=== PATIENT | male | born 1950 | race African-American/Black ===

== ENCOUNTER → 2023-04-02 10:22 | Outpatient (CLI) | payer MEDICARE, BC, OTHER, SELFPAY ==
--- NOTE | ~2023-04-02 | XR_ITS ---
EXAMINATION: XR hand RT 2V, XR wrist LT 2V, XR wrist RT 2V, XR hand LT 2V DATE: 04/02/2023 11:18 INDICATION: Unspecified joint pain at the bilateral hands and wrists TECHNIQUE: 1. Posteroanterior and lateral views of the affected wrist were obtained. 2. Dorsal palmar, oblique and lateral views of the affected hand were obtained. 3. Posteroanterior and lateral views of the affected wrist were obtained. 4. Dorsal palmar, oblique and lateral views of the affected hand were obtained. COMPARISON: None. FINDINGS: The left fifth digit is small with absent distal phalanx, very short middle phalanx and with decrease in cross-sectional diameter of the mid to distal aspect of the proximal phalanx. The latter finding suggests that this is likely developmental but would correlate with clinical history. There are swan- neck deformities at the left second and third digits. Otherwise normal alignment at the bilateral bryan ds and wrists. Suggestion of an old mild fracture deformity at the neck of the left third middle phal anx. No acute fracture identified. Polyarticular osteoarthritis, moderate severity at the left third distal interphalangeal joint at the bilateral distal radioulnar joints. Mild osteoarthritis at the ma jority the remaining joints at the bilateral hands and wrists. No erosions to suggest inflammatory ar thritis. There are prominent soft tissue swelling about the left third and fourth proximal interphala ngeal joints. IMPRESSION: 1. Small left fifth digit with osseous findings as detailed above suggesting this may be developmenta l. Correlate with clinical history. 2. Old healed fracture at the neck of the left third distal phalanx. No acute osseous abnormality. 3. Polyarticular osteoarthritis at the bilateral hands and wrists, moderate at the left third distal interphalangeal joint and otherwise mild. Reviewed, dictated and finalized at location A. EM MAKER IMPRESSION: 1. Small left fifth digit with osseous findings as detailed above suggesting th is may be developmental. Correlate with clinical history. 2. Old healed fracture at the neck of the left third distal phalanx. No acute o sseous abnormality. 3. Polyarticular osteoarthritis at the bilateral hands and wrists, moderate at the left third distal interphalangeal joint and otherwise mild. IMPRESSION: 1. Small left fifth digit with osseous findings as detailed above suggesting th is may be developmental. Correlate with clinical history. 2. Old healed fracture at the neck of the left third distal phalanx. No acute o sseous abnormality. 3. Polyarticular osteoarthritis at the bilateral hands and wrists, moderate at the left third distal interphalangeal joint and otherwise mild. IMPRESSION: 1. Small left fifth digit with osseous findings as detailed above suggesting th is may be developmental. Correlate with clinical history. 2. Old healed fracture at the neck of the left third distal phalanx. No acute o sseous abnormality. 3. Polyarticular osteoarthritis at the bilateral hands and wrists, moderate at the left third distal interphalangeal joint and otherwise mild.
--- NOTE | ~2023-04-02 | XR_ITS ---
EXAMINATION: XR ankle LT 2V, XR ankle RT 2V, XR foot RT 2V, XR foot LT 2V DATE: 04/02/2023 11:19 INDICATION: Unspecified joint pain at the bilateral feet and ankles TECHNIQUE: 1. Anteroposterior and lateral view of the left ankle were obtained. 2. Dorsoplantar and lateral views of the left foot were obtained. 3. Anteroposterior and lateral view of the right ankle were obtained. 4. Dorsoplantar and lateral views of the right foot were obtained. COMPARISON: None. FINDINGS: Bilateral hallux valgus,, 25 degrees on the right and 55 degrees on the left. Otherwise normal alignm ent in the bilateral feet and ankles. No fracture. Mild polyarticular osteoarthritis at multiple join ts in the bilateral feet. Bilateral ankle joint spaces are relatively preserved. No erosions to sugge st inflammatory arthritis. Bilateral moderate to large Achilles calcaneal enthesophytes and small andrew ateral plantar calcaneal enthesophytes. Additional small enthesophytes at the bilateral bases of the fifth metatarsals end at the medial and lateral malleoli. No ankle joint effusion. Vascular calcifica tions at the bilateral ankles and distal lower legs. Soft tissues are otherwise unremarkable. IMPRESSION: 1. Bilateral hallux valgus, left greater than right. 2. Degenerative skeletal changes including mild polyarticular osteoarthritis at the bilateral feet an d relatively symmetric scattered enthesophytes at the bilateral ankles, mid and hindfeet. Reviewed, dictated and finalized at location A. S TENDER IMPRESSION: 1. Bilateral hallux valgus, left greater than right. 2. Degenerative skeletal changes including mild polyarticular osteoarthritis at the bilateral feet and relatively symmetric scattered enthesophytes at the andrew ateral ankles, mid and hindfeet. IMPRESSION: 1. Bilateral hallux valgus, left greater than right. 2. Degenerative skeletal changes including mild polyarticular osteoarthritis at the bilateral feet and relatively symmetric scattered enthesophytes at the andrew ateral ankles, mid and hindfeet. IMPRESSION: 1. Bilateral hallux valgus, left greater than right. 2. Degenerative skeletal changes including mild polyarticular osteoarthritis at the bilateral feet and relatively symmetric scattered enthesophytes at the andrew ateral ankles, mid and hindfeet.
== END ==
DX: R53.81 Other malaise (principal); M19.041 Primary osteoarthritis, right hand; M19.042 Primary osteoarthritis, left hand; M19.031 Primary osteoarthritis, right wrist; M19.032 Primary osteoarthritis, left wrist; M19.071 Primary osteoarthritis, right ankle and foot; M19.072 Primary osteoarthritis, left ankle and foot
CPT/HCPCS: 73100; 73120; 73600; 73620

== ENCOUNTER 2023-10-31 11:09 | Emergency (ER) | payer MEDICARE, BC, OTHER, SELFPAY ==
--- NOTE | ~2023-10-31 | CT_ITS ---
EXAMINATION: CT lumbar spine w con DATE: 10/31/2023 13:44 INDICATION: Low back pain radiating to right thigh. TECHNIQUE: Computed tomography (CT) of the lumbar spine was performed with 100 mL Omnipaque 350 intra venous contrast. Automated exposure control and iterative reconstruction technique were employed. The dose-length product was 604.77 mGy-cm. COMPARISON: None FINDINGS: There is 8 degrees levocurvature of lumbar spine. Vertebral body heights are normal. There is mildly decreased disc height at L2-L3, L3-L4, and L4-L5 and moderately decreased disc height at L5 -S1. There are bridging endplate osteophytes from at least T11 to L2, consistent with diffuse idiopat hic skeletal hyperostosis (DISH). The following disc levels are specifically discussed: L1-L2: The disc does not extend beyond the endplate margin. There is mild right and severe left facet joint hypertrophy. There is mild bilateral neural foraminal stenosis. There is no central canal sten osis. L2-L3: The disc is bulging. There is severe bilateral facet joint osteoarthritis. There is mild bilat eral neural foraminal stenosis. There is no central canal stenosis. L3-L4: The disc is bulging. There is severe bilateral facet joint osteoarthritis. There is mild bilat eral neural foraminal stenosis. There is mild central canal stenosis. L4-L5: The disc is bulging. There is severe bilateral facet joint osteoarthritis. There is mild bilat eral neural foraminal stenosis. There is mild central canal stenosis. L5-S1: The disc is bulging. There is severe bilateral facet joint osteoarthritis. There is moderate b ilateral neural foraminal stenosis. There is mild central canal stenosis. IMPRESSION: 1. Moderate lower lumbar spondylosis. 2. DISH. Reviewed, dictated and finalized at location A.
[2023-10-31 11:13] VITALS: BP 151/90; PULSE 96; RESP 15; TEMP 36.6; O2SAT 98
[2023-10-31] MEDS: diazePAM (*CRX) 5 MG TABLET PO (12:22)
[2023-10-31] MEDS: fentaNYL CITRATE INJ (*CRX) 100 MCG/2 ML VIAL 50 MCG IM (12:23)
--- NOTE | 2023-10-31 13:06 | ED.BACK ---
HPI - Back Pain/Injury General Chief Complaint: Back Pain/Injury <Adilene Washburn III, DO - Last Filed: 11/06/23 07:40> Stated Complaint: back pain <Adilene Washburn III, DO - Last Filed: 11/06/23 07:40> Time Seen by Provider: 10/31/23 12:03 <Adilene Washburn III, DO - Last Filed: 11/06/23 07:40> History of Present Illness HPI Narrative: Pt presents with low back pain without injury for 3 weeks with radiation to top of right thigh. Pt says it is really hard to lie down flat at night. Pt denies problems with bladder or bowels or any weakness. Pt denies any recent procedures or any prior surgical hx. <Adilene Washburn III, DO - Last Filed: 11/06/23 07:40> Related Data Home Medications: Home Medications Medication Instructions Recorded Confirmed amlodipine 5 mg tablet 5 mg PO DAILY 01/01/23 01/01/23 aspirin 81 mg chewable tablet 81 mg PO Q48H 01/01/23 01/01/23 (Aspirin Childrens) atorvastatin 80 mg tablet 80 mg PO HS 01/01/23 01/01/23 bethanechol chloride 10 mg tablet 10 mg PO TID 01/01/23 01/01/23 brimonidine 0.2 % eye drops 1 drp EACH EYE BID 01/01/23 01/01/23 cholecalciferol (vitamin D3) 25 50 mcg PO DAILY 01/01/23 01/01/23 mcg (1,000 unit) tablet clopidogrel 75 mg tablet (Plavix) 75 mg PO DAILY 01/01/23 01/01/23 finasteride 5 mg tablet 5 mg PO DAILY 01/01/23 01/01/23 folic acid-vit B6-vit B12 2.2 1 tablet PO DAILY 01/01/23 01/01/23 mg-25 mg-1 mg tablet (Virt-Neeta) hydrocodone 10 mg-acetaminophen 1 tablet PO Q48H PRN Pain (Scale 01/01/23 01/01/23 325 mg tablet Score 7-10) hydroxychloroquine 200 mg tablet 200 mg PO BID 01/01/23 01/01/23 insulin aspart U-100 100 unit/mL 2 unit subcut QAM 01/01/23 01/01/23 subcutaneous solution levetiracetam 500 mg tablet 1,000 mg PO BID 01/01/23 01/01/23 lipase 10,500-protease 3 cap PO TID 01/01/23 01/01/23 35,500-amylase 61,500 unit capsule,delayed rel (Pancreaze) magnesium oxide 400 mg PO DAILY 01/01/23 01/01/23 metformin 1,000 mg tablet 1,000 mg PO BIDWMEAL 01/01/23 01/01/23 pantoprazole 40 mg tablet,delayed 40 mg PO QAM 01/01/23 01/01/23 release pregabalin 100 mg capsule 100 mg PO QAM 01/01/23 01/01/23 pregabalin 100 mg capsule 200 mg PO HS 01/01/23 01/01/23 pyridoxine (vitamin B6) 50 mg 50 mg PO DAILY 01/01/23 01/01/23 tablet sitagliptin phosphate 100 mg tablet 100 mg PO DAILY 01/01/23 01/01/23 sotalol 80 mg tablet 120 mg PO BID 01/01/23 01/01/23 tamsulosin 0.4 mg capsule 0.4 mg PO BID 01/01/23 01/01/23 <Adilene Washburn III, DO - Last Filed: 11/06/23 07:40> Allergies/Adverse Reactions: Allergies Allergy/AdvReac Type Severity Reaction Status Date / Time peanut Allergy Intermediate Swelling Verified 10/31/23 11:35 aspirin Allergy Mild aggravates Verified 10/31/23 11:35 stomach banana Allergy Unknown Itching Verified 10/31/23 11:35 latex Allergy Unknown Itching Verified 10/31/23 11:35 Penicillins Allergy Unknown Swelling Verified 10/31/23 11:35 Sulfa (Sulfonamide Allergy Unknown Swelling Verified 10/31/23 11:35 Antibiotics) celecoxib [From Celebrex] Allergy Swelling Verified 10/31/23 11:35 infliximab [From Remicade] Allergy Unknown Verified 10/31/23 11:35 meloxicam [From Mobic] Allergy Itching Verified 10/31/23 11:35 metoclopramide Allergy Unknown Verified 10/31/23 11:35 lisinopril AdvReac Swelling Verified 10/31/23 11:35 <Adilene Washburn III, DO - Last Filed: 11/06/23 07:40> Review of Systems Review of Systems: All systems reviewed & are unremarkable except as noted in HPI and below <Adilene Washburn III, DO - Last Filed: 11/06/23 07:40> [facility] Family History Family History: Family History Father Lung disease Mother Heart attack <Adilene Washburn III, DO - Last Filed: 11/06/23 07:40> Social History Social History: Social History Smoking status: Never smoker Alcoh
[2023-10-31 13:11] LABS: Basophils Percent Auto 0.8 % (0.2-1.2); Eosinophils Absolute Auto 0.1 K/mm3 (0-0.3); Eosinophils Percent Auto 2.8 % (0-4.4); Hematocrit 35.8 % (42.0-52.0); Hemoglobin 11.8 g/dL (14.0-18.0); Immature Granulocyte Absolute 0.01 K/mm3 (0.00-0.031); Immature Granulocyte Percent A 0.3 % (0-0.5); Lymphocytes Absolute Auto 1.46 K/mm3 (0.9-3.2); Lymphocytes Percent Auto 37.2 % (18.3-44.2); Mean Corpuscular Hemoglobin 26.8 pg (26-34); Mean Corpuscular Volume 81.4 fl (80-100); Mean Platelet Volume 8.9 fl (7.4-10.4); Monocytes Absolute Auto 0.3 K/mm3 (0.1-0.6); Monocytes Percent Auto 7.1 % (2.6-8.5); Neutrophils Percent Auto 51.8 % (45.5-73.1); Platelet Count Result 301 k/mm3 (150-375); Red Cell Distribution Width 16.4 % (11.5-14.5); White Blood Count 3.9 K/mm3 (4.5-10.0)
[2023-10-31 13:24] LABS: Alanine Aminotransferase 15 U/L (6-50); Albumin Level 4.4 g/dL (3.5-5.1); Alkaline Phosphatase 63 U/L (38-126); Anion Gap 9 mmol/L (4-12); Aspartate Amino Transferase 35 U/L (17-59); Bilirubin,Total 1.1 mg/dL (0.2-1.3); Blood Urea Nitrogen 14 mg/dL (9-20); Calcium 9.8 mg/dL (8.4-10.2); Carbon Dioxide 24 mmol/L (22-30); Chloride 108 mmol/L (98-107); Estimated CRCL calculation 68 ml/min; Estimated Glomerular Filt Rate > 60; Glucose 136 mg/dL (65-110); Potassium 3.7 mmol/L (3.4-5.0); Sodium 141 mmol/L (137-145)
[2023-10-31 15:17] LABS: Appearance Urine Clear (Clear); Bacteria Urine None Seen /hpf; Bilirubin Urine Negative (Negative); Blood Urine Negative (Negative); Color Urine Yellow (Yellow); Glucose Urine UA Negative (Negative); Ketones Urine Negative (Negative); Leukocyte Esterase Ur Negative LEU/UL (Negative); Need Manual Microscopic Reviewed; Nitrate Urine Negative (Negative); Non Pathogenic Casts 0-2; Protein Urine Trace mg/dL (Negative); RBC Urine 0-2 /hpf (0-2); Squamous Epithelial Cell Urine Occasional /hpf (Few); Urobilinogen Urine 0.2 mg/dL (<2.0); pH Urine 5.5 (5.0-9.0)
[2023-10-31 15:33] LABS: Add Urine Microscopic? YES; Specific Grav Ur 1.015 (1.001-1.035)
[2023-10-31 15:43] VITALS: BP 142/86; PULSE 88; RESP 14; O2SAT 97
== END 2023-10-31 15:46 | disposition home or self-care (01) ==
PROVIDERS: Emergency Medicine; Emergency Provider Emergency Medicine
DX: M54.50 Low back pain, unspecified (principal); M79.651 Pain in right thigh
CPT/HCPCS: 36415; 72132; 80053; 81001; 85025; 87077; 87086; 87088; 87181; 96372; 99284; A9270; J3010; Q9967

== ENCOUNTER 2024-05-01 10:39 | Emergency (ER) | payer MEDICARE, BC, OTHER, SELFPAY ==
--- NOTE | ~2024-05-01 | XR_ITS ---
XR chest 2V 05/01/2024 11:12 Indication: Weakness Procedure: Weakness. Comparison: 05/04/2014 Findings: No focal air space disease, pulmonary edema, pleural effusion or suspected pneumothorax. He art size normal. 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 Impression: 1: No acute cardiopulmonary disease. Reviewed, dictated and finalized at location B. OFF MILL TENDER Impression: 1: No acute cardiopulmonary disease.
--- NOTE | 2024-05-01 10:42 | ECG_ITS ---
Test Date: 2024-05-01 10:44:43 Measurements Intervals [place] Rate: 74 P: 71 TX: 160 QRS: 68 QRSD: 80 T: 68 QT: 367 QTc: 408 Interpretive Statements SINUS RHYTHM No previous ECG available for comparison Electronically Signed On 05-01-2024 12:23:36 CONTRACT ADMINISTRATOR by Colby Coats M.D.
[2024-05-01 10:49] VITALS: BP 163/91; PULSE 74; RESP 18; TEMP 36.6; O2SAT 100
[2024-05-01 11:03] LABS: Basophils Percent Auto 0.2 % (0.2-1.2); Eosinophils Absolute Auto 0.1 K/mm3 (0-0.3); Eosinophils Percent Auto 2.6 % (0-4.4); Hematocrit 40.9 % (42.0-52.0); Hemoglobin 13.6 g/dL (14.0-18.0); Immature Granulocyte Absolute 0.01 K/mm3 (0.00-0.031); Immature Granulocyte Percent A 0.2 % (0-0.5); Lymphocytes Absolute Auto 1.01 K/mm3 (0.9-3.2); Lymphocytes Percent Auto 23.7 % (18.3-44.2); Mean Corpuscular HGB Conc 33.3 g/dl (32-36); Mean Corpuscular Volume 84.3 fl (80-100); Mean Platelet Volume 8.6 fl (7.4-10.4); Monocytes Absolute Auto 0.4 K/mm3 (0.1-0.6); Monocytes Percent Auto 10.3 % (2.6-8.5); Neutrophils Absolute Auto 2.7 K/mm3 (1.3-6.7); Platelet Count Result 230 k/mm3 (150-375); Red Blood Count 4.85 M/mm3 (4.6-6.20); Red Cell Distribution Width 15.6 % (11.5-14.5); White Blood Count 4.3 K/mm3 (4.5-10.0)
[2024-05-01 11:13] LABS: Alanine Aminotransferase 23 U/L (6-50); Albumin Level 4.2 g/dL (3.5-5.1); Alkaline Phosphatase 77 U/L (38-126); Anion Gap 6 mmol/L (4-12); Aspartate Amino Transferase 34 U/L (17-59); Blood Urea Nitrogen 8 mg/dL (9-20); Calcium 9.5 mg/dL (8.4-10.2); Carbon Dioxide 29 mmol/L (22-30); Chloride 105 mmol/L (98-107); Estimated CRCL calculation 65 ml/min; Estimated Glomerular Filt Rate > 60; Glucose 94 mg/dL (65-110); Potassium 3.7 mmol/L (3.4-5.0); Sodium 140 mmol/L (137-145)
[2024-05-01 11:15] VITALS: BP 168/90; PULSE 70; RESP 20; O2SAT 99
[2024-05-01 12:00] VITALS: BP 175/90; PULSE 73; RESP 16; O2SAT 99
[2024-05-01 12:09] LABS: Add Urine Microscopic? YES; Ammonium Biurate Crystals Ur Present /hpf; Appearance Urine Clear (Clear); Bacteria Urine None Seen /hpf; Bilirubin Urine Negative (Negative); Blood Urine Non-Hemolyzed Trace (Negative); Color Urine Yellow (Yellow); Glucose Urine UA Negative (Negative); Ketones Urine Trace mg/dL (Negative); Leukocyte Esterase Ur Negative LEU/UL (Negative); Need Manual Microscopic Reviewed; Nitrate Urine Positive (Negative); Non Pathogenic Casts 0-2; Protein Urine Trace mg/dL (Negative); Specific Grav Ur 1.019 (1.001-1.035); Squamous Epithelial Cell Urine None Seen /hpf (Few); Urobilinogen Urine 0.2 mg/dL (<2.0); WBC Urine 0-5 /hpf (0-3); pH Urine 6.5 (5.0-9.0)
--- NOTE | 2024-05-01 12:37 | ED.GENADULT ---
HPI - General Adult General Chief complaint: Weakness Stated complaint: weakness Time Seen by Provider: 05/01/24 10:49 History of Present Illness HPI narrative: Patient is 73-year-old male who presents ER with increased weakness and fatigue. Reports he has a cold. He has been having some cough but no shortness of breath. Mild sinus congestion. No chest pain or chest pressure. No fevers or chills or sweats. Reports has similar condition. Related Data Home Medications ?Medication ?Instructions ?Recorded ?Confirmed ?Last Taken ?Type amlodipine 5 mg tablet 5 mg PO DAILY 01/01/23 01/01/23 Unknown History aspirin 81 mg chewable tablet 81 mg PO Q48H 01/01/23 01/01/23 Unknown History (Aspirin Childrens) atorvastatin 80 mg tablet 80 mg PO HS 01/01/23 01/01/23 Unknown History bethanechol chloride 10 mg tablet 10 mg PO TID 01/01/23 01/01/23 Unknown History brimonidine 0.2 % eye drops 1 drp EACH EYE BID 01/01/23 01/01/23 Unknown History cholecalciferol (vitamin D3) 25 50 mcg PO DAILY 01/01/23 01/01/23 Unknown History mcg (1,000 unit) tablet clopidogrel 75 mg tablet (Plavix) 75 mg PO DAILY 01/01/23 01/01/23 Unknown History finasteride 5 mg tablet 5 mg PO DAILY 01/01/23 01/01/23 Unknown History folic acid-vit B6-vit B12 2.2 1 tablet PO DAILY 01/01/23 01/01/23 Unknown History mg-25 mg-1 mg tablet (Virt-Neeta) hydrocodone 10 mg-acetaminophen 1 tablet PO Q48H PRN Pain (Scale 01/01/23 01/01/23 Unknown History 325 mg tablet Score 7-10) hydroxychloroquine 200 mg tablet 200 mg PO BID 01/01/23 01/01/23 Unknown History insulin aspart U-100 100 unit/mL 2 unit subcut QAM 01/01/23 01/01/23 Unknown History subcutaneous solution levetiracetam 500 mg tablet 1,000 mg PO BID 01/01/23 01/01/23 Unknown History lipase 10,500-protease 3 cap PO TID 01/01/23 01/01/23 Unknown History 35,500-amylase 61,500 unit capsule,delayed rel (Pancreaze) magnesium oxide 400 mg PO DAILY 01/01/23 01/01/23 Unknown History metformin 1,000 mg tablet 1,000 mg PO BIDWMEAL 01/01/23 01/01/23 Unknown History pantoprazole 40 mg tablet,delayed 40 mg PO QAM 01/01/23 01/01/23 Unknown History release pregabalin 100 mg capsule 100 mg PO QAM 01/01/23 01/01/23 Unknown History pregabalin 100 mg capsule 200 mg PO HS 01/01/23 01/01/23 Unknown History pyridoxine (vitamin B6) 50 mg 50 mg PO DAILY 01/01/23 01/01/23 Unknown History tablet sitagliptin phosphate 100 mg tablet 100 mg PO DAILY 01/01/23 01/01/23 Unknown History sotalol 80 mg tablet 120 mg PO BID 01/01/23 01/01/23 Unknown History tamsulosin 0.4 mg capsule 0.4 mg PO BID 01/01/23 01/01/23 Unknown History Allergies Allergy/AdvReac Type Severity Reaction Status Date / Time peanut Allergy Intermediate Swelling Verified 10/31/23 11:35 aspirin Allergy Mild aggravates Verified 10/31/23 11:35 stomach banana Allergy Unknown Itching Verified 10/31/23 11:35 latex Allergy Unknown Itching Verified 10/31/23 11:35 Penicillins Allergy Unknown Swelling Verified 10/31/23 11:35 Sulfa (Sulfonamide Allergy Unknown Swelling Verified 10/31/23 11:35 Antibiotics) celecoxib (From Celebrex) Allergy Swelling Verified 10/31/23 11:35 infliximab (From Remicade) Allergy Unknown Verified 10/31/23 11:35 meloxicam (From Mobic) Allergy Itching Verified 10/31/23 11:35 metoclopramide Allergy Unknown Verified 10/31/23 11:35 lisinopril AdvReac Swelling Verified 10/31/23 11:35 Review of Systems Review of Systems: All systems reviewed & are unremarkable except as noted in HPI and below Constitutional: Constitutional: Reports no additional constitutional complaints ENT: Reports system reviewed and no additional complaints, except as documented Cardiovascular: Cardiovascular: Reports no additional cardiovascular complaints Respiratory: Respiratory: Reports no additional respiratory complaints Musculoskeletal: Musculoskeletal: Reports no additional musculoskeletal complaints [facility] Past Medical History Medical History (Updated 05/01/24 @ 14:18 by Wyatt Roberson MD) Hypertension Hyperlipidemia Diabetes mellitus BPH (benign prostatic hyperplasia) Atrial fibrillation Family History Family History Father Lung disease Mother Heart attack Social History Social History Smoking status: Never smoker Alcohol intake: never Substance use: never Substance use type: does not use Spiritual care concerns: No Exam Narrative: GENERAL: Well-appearing, well-nourished, and in no acute distress. HEAD: Normocephalic, atraumatic. ENT: Mucous membranes moist. NECK: Supple. CHEST: Clear to auscultation. No respiratory distress. HEART: Regular rate and rhythm. Normal peripheral pulses. ABDOMEN: Soft, nontender, nondistended. EXTREMITIES: Normal range of motion. No edema. SKIN: Warm, dry, no rash. NEURO: Alert and oriented x3. PSYCH: Normal mood and affect. Course Course Emergency Course: Patient informed of results. Ready for dc. Vital Signs Vital signs: Vital Signs Temperature 98 F 05/01/24 10:49 Pulse Rate 74 05/01/24 10:49 Respiratory Rate 18 05/01/24 10:49 Blood Pressure 163/91 H 05/01/24 10:49 Pulse Oximetry 100 05/01/24 10:49 Temperature 98 F 05/01/24 10:49 Pulse Rate 69 05/01/24 13:00 Respiratory Rate 17 05/01/24 13:00 Blood Pressure 168/93 H 05/01/24 13:00 Pulse Oximetry 98 05/01/24 13:00 Medical Decision Making Vital Signs Vital Signs: Vital Signs Temperature 98 F 05/01/24 10:49 Pulse Rate 74 05/01/24 10:49 Respiratory Rate 18 05/01/24 10:49 Blood Pressure 163/91 H 05/01/24 10:49 Pulse Oximetry 100 05/01/24 10:49 Temperature 98 F 05/01/24 10:49 Pulse Rate 69 05/01/24 13:00 Respiratory Rate 17 05/01/24 13:00 Blood Pressure 168/93 H 05/01/24 13:00 Pulse Oximetry 98 05/01/24 13:00 Lab Data 05/01/24 10:51 05/01/24 10:51 Labs: Lab Results 05/01/24 05/01/24 05/01/24 Range/Units 10:51 11:35 12:01 WBC 4.3 L (4.5-10.0) K/mm3 RBC 4.85 (4.6-6.20) M/mm3 Hgb 13.6 L (14.0-18.0) g/dL Hct 40.9 L (42.0-52.0) % MCV 84.3 (80-100) fl MCH 28.0 (26-34) pg MCHC 33.3 (32-36) g/dl RDW 15.6 H (11.5-14.5) % Plt Count 230 (150-375) k/mm3 MPV 8.6 (7.4-10.4) fl Immature Gran % (Auto) 0.2 (0-0.5) % Neut % (Auto) 63.0 (45.5-73.1) % Lymph % (Auto) 23.7 (18.3-44.2) % [place] % (Auto) 10.3 H (2.6-8.5) % Eos % (Auto) 2.6 (0-4.4) % Baso % (Auto) 0.2 (0.2-1.2) % Lymph # (Auto) 1.01 (0.9-3.2) K/mm3 [place] # (Auto) 0.4 (0.1-0.6) K/mm3 Eos # (Auto) 0.1 (0-0.3) K/mm3 Baso # (Auto) 0.0 (0.0-0.1) K/mm3 Abs Immat Gran (auto) 0.01 (0.00-0.031) K/mm3 Absolute Neuts (auto) 2.7 (1.3-6.7) K/mm3 Absolute Nucleated RBC 0.000 (0.0-0.012) K/mm3 Nucleated RBC % 0.0 (0.0-0.2) % Sodium 140 (137-145) mmol/L Potassium 3.7 (3.4-5.0) mmol/L Chloride 105 (98-107) mmol/L Carbon Dioxide 29 (22-30) mmol/L Anion Gap 6 (4-12) mmol/L BUN 8 L D (9-20) mg/dL Creatinine 1.00 (0.7-1.3) mg/dL Estim Creat Clear Calc 65 ml/min Estimated GFR > 60 (59 - ) Glucose 94 (65-110) mg/dL Calcium 9.5 (8.4-10.2) mg/dL Total Bilirubin 1.0 (0.2-1.3) mg/dL AST 34 (17-59) U/L ALT 23 (6-50) U/L Alkaline Phosphatase 77 (38-126) U/L Total Protein 8.0 (6.3-8.2) g/dL Albumin 4.2 (3.5-5.1) g/dL Urine Color Yellow (Yellow) Urine Appearance Clear (Clear) Urine pH 6.5 (5.0-9.0) Ur Specific [place] 1.019 (1.001-1.035) Urine Protein Trace (Negative) mg/dL Urine Glucose (UA) Negative (Negative) mg/dL Urine Ketones Trace H (Negative) mg/dL Ur Blood (Man) Non-hemolyzed trace (Negative) Urine Nitrate Positive H (Negative) Urine Bilirubin Negative (Negative) Urine Urobilinogen 0.2 (<2.0) mg/dL Add Ur Microanalysis Reviewed Leukocyte Esterase Rfl Negative (Negative) HINA/UL Urine RBC 3-5 H (0-2) /hpf Urine WBC 0-5 (0-3) /hpf Ur Squamous Epith Cells None seen (Few) /hpf [place] Biurate Crystals Present H (None) /hpf Urine Bacteria None seen /hpf Urine Casts 0-2 Influenza A (RT-PCR) Negative (Negative) Influenza B (RT-PCR) Negative (Negative) RSV (RT-PCR) Positive A (Negative) SARS-CoV-2 RNA (RT-PCR) Negative (Negative) Discharge Plan Discharge Clinical Impression: Respiratory syncytial virus (RSV) Patient Disposition: Home, Self-Care Condition: Stable Instructions: RSV (Respiratory Syncytial Virus) Infection (ED) Additional Instructions: As discussed you have a viral illness. Unfortunately there are no specific medications we can give you to make the illness end faster. Antibiotics do not work for viral illnesses. However, you can take Acetaminophen or Ibuprofen to help with fevers and pain. Stay well hydrated and rested. Return to the emergency department if your fevers and chills continue to worse after 5 days, if you develop worsening cough with thick sputum, or are unable to stay hydrated. Contact your primary care provider in the next few days for a re-evaluation and to make sure your symptoms are improving. Patient Language: Congolese Prescriptions: No Action methylprednisolone [Medrol (Ricardo)] 4 mg tablets,dose pack See Rx Instructions PO .COMPLEX Qty: 21 0RF Rx Instructions: orally per package directions atorvastatin 80 mg Tablet 80 mg PO HS bethanechol chloride 10 mg Tablet 10 mg PO TID levetiracetam 500 mg Tablet 1,000 mg PO BID sotalol 80 mg Tablet 120 mg PO BID clopidogrel [Plavix] 75 mg Tablet 75 mg PO DAILY amlodipine 5 mg Tablet 5 mg PO DAILY hydrocodone-acetaminophen 10-325 mg Tablet 1 tablet PO Q48H PRN (Reason: Pain (Scale Score 7-10)) tamsulosin 0.4 mg Capsule 0.4 mg PO BID insulin aspart U-100 100 unit/mL Solution 2 unit SUBCUT QAM pantoprazole 40 mg Tablet,Delayed Release (Dr/Ec) 40 mg PO QAM metformin 1,000 mg Tablet 1,000 mg PO BIDWMEAL brimonidine 0.2 % Drops 1 drp EACH EYE BID pyridoxine (vitamin B6) 50 mg Tablet 50 mg PO DAILY aspirin [Aspirin Childrens] 81 mg Tablet,Chewable 81 mg PO Q48H hydroxychloroquine 200 mg Tablet 200 mg PO BID finasteride 5 mg Tablet 5 mg PO DAILY pregabalin 100 mg Capsule 100 mg PO QAM pregabalin 100 mg Capsule 200 mg PO HS Virt-Neeta 2.2-25-1 mg Tablet 1 tablet PO DAILY cholecalciferol (vitamin D3) 25 mcg (1,000 unit) Tablet 50 mcg PO DAILY sitagliptin phosphate 100 mg Tablet 100 mg PO DAILY Pancreaze 10,500-35,500- 61,500 unit Capsule,Delayed Release(Dr/Ec) 3 cap PO TID Rx Instructions: administer with meals and/or snacks- to start on 01/02/2023 magnesium oxide 400 mg magnesium Tablet 400 mg PO DAILY sennosides-docusate sodium [Senokot-S] 8.6-50 mg Tablet 1 tab PO HS Qty: 14 0RF cyanocobalamin (vitamin B-12) 1,000 mcg/mL Solution 1,000 mcg IM MONTHLY Qty: 0 0RF Follow-up/Referrals: UNKNOWN,DOCTOR [Primary Care Provider] - 1 Week
[2024-05-01 13:00] VITALS: BP 168/93; PULSE 69; RESP 17; O2SAT 98
[2024-05-01 14:02] LABS: Influenza A QL RT-PCR Negative (Negative); Influenza B QL RT-PCR Negative (Negative); RSV RNA, RT-PCR Positive (Negative); SARS-CoV-2 RNA PCR Negative (Negative)
--- NOTE | 2024-05-01 14:30 | PC.NURSE ---
This RN called pt. caregiver letting her know the pt. is d/c. Caregiver to pickup pt. from SON Harkins 11 minutes. [employer] Info: Marilyn [phone]
[2024-05-01 14:36] VITALS: BP 174/94; PULSE 72; RESP 16; O2SAT 96
== END 2024-05-01 14:44 | disposition home or self-care (01) ==
PROVIDERS: Emergency Provider Emergency Medicine
DX: R53.1 Weakness (principal); R05.9 Cough, unspecified; B97.4 Respiratory syncytial virus as the cause of diseases classified elsewhere; Z20.822 Contact with and (suspected) exposure to COVID-19; I48.91 Unspecified atrial fibrillation; I10 Essential (primary) hypertension; E78.5 Hyperlipidemia, unspecified; E11.9 Type 2 diabetes mellitus without complications; N40.0 Benign prostatic hyperplasia without lower urinary tract symptoms; Z79.899 Other long term (current) drug therapy; Z79.4 Long term (current) use of insulin; Z79.82 Long term (current) use of aspirin; Z79.02 Long term (current) use of antithrombotics/antiplatelets
CPT/HCPCS: 36415; 71046; 80053; 81001; 85025; 87086; 87181; 87637; 93005; 99283

== ENCOUNTER 2024-09-23 12:11 | Outpatient (CLI) | payer MEDICARE, BC, OTHER, SELFPAY ==
--- NOTE | ~2024-09-23 | XR_ITS ---
Left foot Technique: AP and lateral views were obtained. Clinical History: Rheumatoid arthritis Findings: No acute fracture or dislocation is seen. There is hallux valgus, mild degenerative change of the first MTP joint region.. Soft tissues are unremarkable. Impression: Hallux valgus with mild degenerative change of the first MTP joint. Reviewed, dictated and finalized at location . Impression: Hallux valgus with mild degenerative change of the first MTP joint.
--- NOTE | ~2024-09-23 | XR_ITS ---
Right Hand Technique: PA and lateral views were obtained. Clinical History: Rheumatoid arthritis Findings: No acute fracture or dislocation is seen. Osseous alignment is anatomic. There is minimal d egenerative change of the first CMC joint and interphalangeal joint of the thumb. Soft tissues are un remarkable. Impression: Minimal degenerative changes, as above. Reviewed, dictated and finalized at location M. Impression: Minimal degenerative changes, as above.
--- NOTE | ~2024-09-23 | XR_ITS ---
Right foot Technique: AP and lateral views were obtained. Clinical History: Rheumatoid arthritis Findings: No acute fracture or dislocation is seen. Osseous alignment is anatomic. There is mild dege nerative change of the first MTP joint. Soft tissues are unremarkable. Impression: Mild degenerative change of the first MTP joint. Reviewed, dictated and finalized at location . Impression: Mild degenerative change of the first MTP joint.
--- NOTE | ~2024-09-23 | XR_ITS ---
Left Hand Technique: PA, oblique, and lateral views were obtained. Clinical History: Rheumatoid arthritis COMPARISON: 04/02/2023 Findings: No acute fracture or dislocation is seen. There is minimal degenerative change of the first CMC joint and at the third DIP joint. 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 Soft tissues are unremarkable. Impression: Mild degenerative changes, as above. 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 Reviewed, dictated and finalized at location M. Impression: Mild degenerative changes, as above. 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
== END 2024-09-23 12:12 | disposition home or self-care (01) ==
LOC: MICIMG 12:13
PROVIDERS: PCP Internal Medicine; Visit Provider Internal Medicine
DX: M06.9 Rheumatoid arthritis, unspecified (principal); M20.12 Hallux valgus (acquired), left foot; M19.071 Primary osteoarthritis, right ankle and foot; M19.042 Primary osteoarthritis, left hand
CPT/HCPCS: 73120; 73620

== ENCOUNTER 2024-10-02 08:58 | Day surgery (SDC) | payer MEDICARE, BC, OTHER, SELFPAY ==
[2024-10-02] VITALS (17 sets, daily range): BP systolic 145–171; BP diastolic 80–99; PULSE 67–94; RESP 14–24; TEMP 36.4–36.6; O2SAT 100
--- NOTE | ~2024-10-02 | XR_ITS ---
EXAMINATION: XR chest 2V DATE: 10/02/2024 10:03 INDICATION: Food bolus TECHNIQUE: frontal and lateral views of the chest were obtained. COMPARISON: Chest radiograph dated 05/01/2024 FINDINGS: The lungs remain clear with no focal airspace opacities, pulmonary edema, pleural effusion or pneumot horax. Arch size is normal. Atherosclerotic coronary artery calcifications. Mild thoracic spondylosis with bridging osteophytes at multiple levels consistent with diffuse idiopathic skeletal hyperostosi s (DISH). Cholecystectomy clips in right upper quadrant. Status post distal right clavicle resection. IMPRESSION: 1. No acute cardiopulmonary disease. Reviewed, dictated and finalized at location A.
--- OUTSIDE RECORDS SUMMARY | 2024-10-02 09:01 | XMS_ITS | Encounter Summary ---
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 This section includes the names of all active insurance providers for the patient. Insurance Provider Type of Coverage Plan Name Start of Policy Coverage End of Policy Coverage Group Number Member ID Insurance Provider's Telephone Number Policy Hidalgo's Name Patient's Relationship to Policy Hidalgo [place] PREFERRED PROVIDER ORGANIZAT ION (PPO) FEP STAND WILLI FAM Jun 03, 2018 105 [id number] [phone] Abdiel WHITLEY PATIENT [place] PREFERRED PROVIDER ORGANIZAT ION (PPO) FEP STAND WILLI FAM Jun 03, 2018 105 [id number] [phone] Abdiel WHITLEY PATIENT [place] PREFERRED PROVIDER ORGANIZAT ION (PPO) FEP STAND WILLI FAM Jun 03, 2018 105 [id number] [phone] Abdiel WHITLEY PATIENT [place] PREFERRED PROVIDER ORGANIZAT ION (PPO) FEP STAND WILLI FAM Jun 03, 2018 105 [id number] [phone] Abdiel WHITLEY PATIENT [place] FEP ([id number]) PRESCRIPT ION FEPRX May 20, 1994 [id number] Abdiel WHITLEY PATIENT MEDICARE (WNR) MEDICARE (M) PART A Aug 11, 2014 PART A [id number] Abdiel WHITLEY PATIENT MEDICARE (WNR) MEDICARE (M) PART B Aug 11, 2014 PART B [id number] [phone] Abdiel WHITLEY PATIENT Selected Encounter This section includes the information on record at ID for the Encounter. Date/Time Encounter Type Encounter Description Reason Provider Source Sep 01, 2024 02:30 PM OFFICE O/P EST HI 40 MIN CARDIOLOGY ICD-10-CM I48.0 Paroxysmal atrial fibrillation JESSICA CUBA Marcus Encounter Template Text not used by ID Assessments - Encounter Diagnoses This section includes the primary and secondary diagnoses documented for the Encounter. Date/Time Primary/Secondary Diagnosis Diagnosis Name Provider Source September 11, 2024 02:40 PM PRIMARY Paroxysmal atrial fibrillation JEANA CUBA [facility] Plan of Treatment: Future Appointments (+ 6 months) and Future Tests (+/- 45 days) The Plan of Treatment section includes future care activities for the patient from all ID treatmentfacilities. This section includes future appointments and future orders which are active, pending or scheduled. Future Appointments This section includes appointments that were scheduled to occur 6 months from the date of the Encounter, up to a maximum of 20 appointments. The data comes from all ID treatment facilities. Appointment Date/Time Appointment Type Appointme nt Facility Name September 10, 2024 08:30 AM AMBULATORY - NONE [facility] Oct 13, 2024 01:00 PM AMBULATORY - MEDICINE [facility] Nov 03, 2024 12:00 PM AMBULATORY - NONE [facility] Mar 02, 2025 02:30 PM AMBULATORY - MEDICINE [facility] Active, Pending, and Scheduled Orders This section includes a listing of several types of active, pending, and scheduled orders, including clinic medications orders, diagnostic test orders, procedure orders and consult orders; where the start date of the order is 45 days before the date of the Encounter or 45 days after the date of theEncounter. The data comes from all ID treatment facilities. Test Date/Time Test Type Test Details Facility Name Aug 04, 2024 12:00 AM Laboratory - Chemi strscout Order OCCULT BLOOD FIT X1 SCREEN (MFP ONLY) STOOL FECES SP [facility] Vital Signs: All taken on the encounter date This section contains inpatient and outpatient Vital Signs collected on the date of the Encounter. Date/Time Temperature Pulse Blood Pressure Respiratory Rate SP02 Pain Height Weight Body Mass Index Source Sep 01, 2024 03:01 PM 97.5 76 126/79 16 98 8 171.6 22 [facility] Advance Directives: All historical and current Section Date Range: From patient's date of to the date document was created. This section includes ALL of a patient's completed or amended ID Advance and Rescinded Directives. The entries below indicate that a directive exists for the patient, but an actual copy is not included with this document. The data comes from all ID facilities. Date Advance Directives Provider Source Dec 08, 2020 ADVANCE DIRECTIVE M[facility]CR[facility] Encounter Notes: All associated encounter notes This section contains the clinical notes associated to the Encounter. Date/Time Encounter Note(s) Provider Source Sep 01, 2024 11:02 AM CARDIOLOGY OUTPATI ENT NOTE: LOCAL TITLE: CARDIOLOGY OUTPATIENT FOLLOW UP ST STANDARD TITLE: CARDIOLOGY OUTPATIENT NOTE DATE OF NOTE: SEP 01, 2024@11:02 ENTRY DATE: SEP 01, 2024@11:02:27 AUTHOR: LOUISE CUBA EXP COSIGNER: URGENCY: STATUS: COMPLETED CARDIOLOGY CLINIC REVISIT SUBJECTIVE: 74 yo male return visit. He arrives by himself today with a rolling walker and a wheelchair provided for transportation within the ID. He states he has had no new concerning cardiac symptoms. Specifically he denies any tachycardia symptoms or chest discomfort. His primary complaint is back pain which radiates down to his right leg. He is compliant with all of his cardiac medications. He lives with his and they had a caregiver to help with medications and transportation but this person is no longer available to do this. [facility]. ROS: 10 Point review of systems negative except as noted in the subjective. Social History: Tobacco: none EtOH: none Illicit Drugs:none PAST CARDIAC WORKUP/TREATMENT: EC11/07/2023: SR, QRS 78ms, QTC 432ms, LVH by voltage Cath: none recent on record Stress Test: none recent on record ECHO: none recent on record OBJECTIVE: Vitals: Blood pressure: 126/79 (09/01/2024 15:01) Pulse: 76 (09/01/2024 15:01) Resp Rate: 16 (09/01/2024 15:01) Gen: Alert, oriented. NAD. Arrives to clinic in a wheelchair with his walker and hand and with a caregiver. Neck: No JVD. Carotids: No carotid bruits. CV: Regular, normal S1 and S2, no murmurs. Lungs: Clear bilaterally Abd: Soft, nontender. No palpable masses. No HSM Ext: No edema. 2+ palpable distal pulses B. Skin: No rashes. PROBLEM LIST: # Atrial fibrillation, paroxysmal: - rhythm-control approach with sotalol - Watchman LAAO 03/04/[address] [facility]. # h/o Stroke: - limits include impaired ambulation requiring a walker and wheelchair at times. # h/o GI Bleed: The patient is unable to provide any recollection of this. # Diabetes # HTN PLAN: ECG today. Continue current cardiac medications including sotalol. Check labs including BMP, CBC, Lipids. Return to clinic in 6 months. Time expended on this encounter: 45 minutes LABS: Chol: No CHOLESTEROL EO data found LDL: ____ No CALCULATED LDL data found____ HDL: ____ Trig: ____ Na: SODIUM 138 mEq/L 11/07/2023 11:18 K: POTASSIUM 3.5 mEq/L 11/07/2023 11:18 BUN: 17.7 mg/dL (11/07/23 11:18) Cr: CREATININE 1.29 mg/dL 11/07/2023 11:18 Glucose: GLUCOSE 136 H mg/dL 11/07/2023 11:18 ALT: ____ AST: ____ WBC: 4.7 10*3/uL (11/07/23 11:18) HCT: 37.8 % L (11/07/23 11:18) PLT: PLT 340 10*3/uL 11/07/2023 11:18 INR: No INR EO data found BNP: No BRAIN NATRIURETIC PEPTIDE data found A1c: No HEMOGLOBIN A1C EO data found All cardiac medications were reviewed with the patient and reconciled as noted by med list below. Medications: Active Outpatient Medications (including Supplies): Active Outpatient Medications Status = 1) BRIEF,PROTECTIVE SUPER ABS LG ATTENDS USE 1 BRIEF TO ACTIVE AFFECTED AREA(S) THREE TIMES A DAY NEEDED Indication: FOR INCONTINENCE Active Non-[facility] Medications Status = 1) Non-VA AMLODIPINE BESYLATE 2.5MG TAB 2.5MG BY MOUTH ONCE A ACTIVE DAY 2) Non-VA APIXABAN 5MG TAB 5MG BY MOUTH TWICE A DAY ACTIVE Indication: FOR ANTICOAGULATION 3) Non-VA ATORVASTATIN CALCIUM 40MG TAB 20MG BY MOUTH EVERY ACTIVE EVENING 4) Non-VA BETHANECHOL CHLORIDE 25MG TAB 50MG BY MOUTH THREE ACTIVE TIMES A DAY 5) Non-VA CLOPIDOGREL BISULFATE 75MG TAB 75MG BY MOUTH ONCE A ACTIVE DAY Indication: FOR ACUTE CORONARY SYNDROME 6) Non-VA FINASTERIDE 5MG TAB 5MG BY MOUTH ONCE A DAY ACTIVE 7) Non-VA HYDROCODONE 7.5/ACETAMINOPHEN 325MG TAB 1 TABLET BY ACTIVE MOUTH EVERY 6 HOURS NEEDED 8) Non-VA INSULIN,ASPART,HUMAN 100 UNIT/ML INJ 2 UNITS UNDER ACTIVE THE SKIN THREE TIMES A DAY BEFORE MEALS 9) Non-VA LATANOPROST 0.005% OPH SOLN 1 DROP BOTH EYES EVERY ACTIVE EVENING 10) Non-VA LEVETIRACETAM 500MG TAB 1000MG BY MOUTH TWICE A DAY ACTIVE Indication: FOR SEIZURES 11) Non-VA MAGNESIUM OXIDE 400MG TAB 400MG BY MOUTH ONCE A DAY ACTIVE Indication: FOR DIETARY MAGNESIUM SUPPLEMENTATION 12) Non-VA METFORMIN 1000/SAXAGLIPTIN 2.5MG SA TAB 2 TABLETS BY ACTIVE MOUTH ONCE A DAY 13) Non-VA PANCRELIPASE (EQV-ZENPEP) 5,000 EC CAP 3 CAPSULES BY ACTIVE MOUTH THREE TIMES A DAY BEFORE MEALS 14) Non-VA PANTOPRAZOLE NA 40MG EC TAB 40MG BY MOUTH EVERY ACTIVE MORNING 15) Non-VA PREGABALIN 75MG ORAL CAP 75MG BY MOUTH AT BEDTIME ACTIVE 16) Non-VA SOTALOL TAB BY MOUTH ACTIVE 17) Non-VA TAMSULOSIN HCL 0.4MG CAP 0.4MG BY MOUTH EVERY EVENING ACTIVE 18 Total Medications All patients are counseled on the risks of smoking at every visit including patients with no history of smoking in order to dissuade them from starting the use of tobacco products; former smokers to minimize recidivism of nicotine dependence; and current smokers in an effort to help them cease the use of nicotine products. Where relevant [age between 50-60-years and history of smoking], we and/or the PCP will obtain an abdominal ultrasound to screen for the possibility of an abdominal aortic aneurysm and ABIs to screen for occult PAD. When completed, the results will be found in [facility]. # HEALTH PROMOTION/HEALTH MAINTENANCE & EDUCATION DISEASE: Discussed treatment options & counseled on exacerbating factors. # DIAGNOSTIC TESTING AND LABORATORY DATA: Pertinent labs and diagnostic tests (both normal and abnormal) are included above and were reviewed and discussed with the patient within 7-days of the test and during this visit. - DISEASE: Coordinated care; discussed treatment options, & counseled on exacerbating factors. - Encouraged participation in regular exercise program 3-5 days/week - Maximize risk factor reduction & lifestyle modifications i.e. BP <130/80 and LDL goal <70 - Discussed at length about lifestyle modifications in regard to diet, exercise, and medication compliance. -Assessed smoking habits and whether actively using tobacco products or a past history of nicotine dependence, smoking cessation strategies were reinforced. - In patients with a history of CHF, AMADEO/ARB use is considered and held when contraindications such as allergies, renal function preclude use. If not mentioned in the above note, these assessments are detailed in prior cardiology notes. The patient verbalized understanding of information regarding: labs, meds, and plans for care. Reinforcement is indicated. # MEDICATION RECONCILIATION: - All cardiac medications were reconciled during the visit. - All patients with an EF </= 40% are considered for Amadeo inhibitors or ARBs except when contraindicated due to intolerance/allergy, hypotension, or renal disease. Documentation is found in the historical record if not repeated in this note. - All patients with an EF </= 40% are considered for beta blockers and aspirin contraindicated due to intolerance/allergy, hypotension, bradycardia, or bleeding risk. Documentation is found in the historical record if not repeated in this note. - Anticoagulation therapy was discussed with all patients in the setting of atrial flutter/fibrillation and held in cases where the complications of bleeding (e.g., fall risk) outweighs the risk of stroke. All patients on anticoagulation medications are counseled on bleeding risks and the warning signs of a stroke or TIA. - Except where mentioned or restricted, the PCP may renew the cardiac medications. - Other listed profile meds will continue as directed by the PCP (primary provider). Life Sustaining Treatment Orders /es/ LOUISE CUBA PLANER OFF BEARERLANGUAGE PATHOLOGISTMD Signed: 09/01/2024 15:16 LOUISE CUBA [facility]
--- OUTSIDE RECORDS SUMMARY | 2024-10-02 09:01 | XMS_ITS | Encounter Summary ---
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 Name Role Phone EHJOSEPH Primary Care Provider Unavailabl e Insurance Providers: [...] STAND WILLI FAM Jun 03, 2018 105 [id number] [phone] Abdiel HUNTER PATIENT ANTHEM [employer] [place] FEP PREFERRED PROVIDER ORGANIZAT ION (PPO) FEP STAND WILLI FAM Jun 03, 2018 105 [id number] [phone] Abdiel HUNTER PATIENT ANTHE[place] F[place] PREFERRED PROVIDER ORGANIZAT ION (PPO) FEP STAND WILLI FAM Jun 03, 2018 105 [id number] [phone] Abdiel HUNTER PATIENT [place] F[place] PREFERRED PROVIDER ORGANIZAT ION (PPO) FEP STAND WILLI FAM Jun 03, 2018 105 [id number] [phone] Abdiel HUNTER PATIENT [employer] FEP ([id number]) PRESCRIPT ION FEPRX May 20[birth year] 1993 [id number] Abdiel HUNTER PATIENT MEDICARE (WNR) MEDICARE (M) PART A Aug 11, 2014 PART A [id number] [phone] Abdiel HUNTER PATIENT MEDICARE (WNR) MEDICARE (M) PART B Aug 11, 2014 PART B [id number] Abdiel HUNTER PATIENT Selected Encounter This section includes the information on [place] at [place] for the Encounter. Date/Time Encounter Type Encounter Description Reason Provider Source Jan 14, 2024 10:30 AM PT EDUCATION NOC INDIVID CAREGIVER SUPPORT PROGRAM ICD-10-CM I63.9 Cerebral infarction, unspecified SHANNON PEREZ Marcus Encounter Template Text not used by [place] Assessments - Encounter Diagnoses This section includes the primary and secondary diagnoses documented for the Encounter. Date/Time Primary/Secondary Diagnosis Diagnosis Name Provider Source Jan 14, 2024 11:02 AM PRIMARY Cerebral infarction, unspecified SHANNON PEREZ [facility] Jan 14, 2024 11:02 AM SECONDARY Spondylosis w/o myelopathy or radiculopathy, lumbar region SHANNON PEREZ [facility] Plan of Treatment: Future Appointments (+ 6 months) and Future Tests (+/- 45 days) The Plan of Treatment section includes future care activities for the patient from all [place] treatmentfacilities. This section includes future appointments and future orders which are active, pending or scheduled. Future Appointments This section includes appointments that were scheduled to occur 6 months from the date of the Encounter, up to a maximum of 20 appointments. The data comes from all [place] treatment facilities. Appointment Date/Time Appointment Type Appointme nt Facility Name Jan 16, 2024 11:00 AM AMBULATORY - SURGERY [facility] Jan 17, 2024 12:00 PM AMBULATORY - NONE [facility] Jan 24, 2024 11:00 AM AMBULATORY - REHAB MEDICIN [facility] Feb 10, 2024 11:00 AM AMBULATORY - NONE [facility] Feb 10, 2024 02:00 PM AMBULATORY - NONE [facility] Feb 28, 2024 11:00 [facility] Mar 05, 2024 10:30 AM AMBULATORY - NONE [facility] Mar 11, 2024 10:00 AM AMBULATORY - NONE [facility] Mar 11, 2024 12:00 PM AMBULATORY - NONE [facility] Apr 10, 2024 08:00 AM AMBULATORY - NONE [facility] Apr 21, 2024 08:00 AM AMBULATORY - NONE [facility] Apr 22, 2024 08:30 AM AMBULATORY - NONE [facility] May 25, 2024 02:00 PM AMBULATORY - REHAB [facility] Jun 16, 2024 08:30 AM AMBULATORY - NONE [facility] Jun 16, 2024 12:00 PM AMBULATORY - MEDICINE [facility] Active, Pending, and Scheduled Orders This section includes a listing of several types of active, pending, and scheduled orders, including clinic medications orders, diagnostic test orders, procedure orders and consult orders; where the start date of the order is 45 days before the date of the Encounter or 45 days after the date of theEncounter. The data comes from all [place] treatment facilities. Test Date/Time Test Type Test Details Facility Name Feb 10, 2024 02:50 PM Consult Order [facility] Cons Photographic Platemaker's Choice [facility] Advance Directives: All historical and current Section Date Range: From patient's date of to the date document was created. This section includes ALL of a patient's completed or amended [place] Advance and Rescinded Directives. The entries below indicate that a directive exists for the patient, but an actual copy is not included with this document. The data comes from all [place] facilities. Date Advance Directives Provider Source Dec 08, 2020 ADVANCE DIRECTIVE MARYCRUZ [place] [facility] Encounter Notes: All associated encounter notes This section contains the clinical notes associated to the Encounter. Date/Time Encounter Note(s) Provider Source Jan 14, 2024 10:25 AM CAREGIVER CERTIFIC ATE: LOCAL TITLE: [facility] WELLNESS CONTACT STANDARD TITLE: CAREGIVER CERTIFICATE DATE OF NOTE: JAN 14, 2024@10:25 ENTRY DATE: JAN 14, 2024@10:25:10 AUTHOR: SHANNON PEREZ COSIGNER: URGENCY: STATUS: COMPLETED [facility] WELLNESS CONTACT - This [place] is enrolled in the [facility] Program of Comprehensive Assistance for Family Caregivers (PCAFC). While enrolled in the PCA, wellness contacts are required and must review the Veterans well-being, adequacy of personal care services being provided by the Family Caregiver(s), and the well-being of the Family Caregiver(s). This wellness contact will occur at a minimum of once every 120 days, and at least one visit must occur in the eligible Veterans home on an annual basis. Date of Visit: JAN 14, 2024 Length of Visit: 18 mins Full Name (last, first): SHERRI HUNTER Age: 73 Full SSN: [id number] Date of : Aug Service Connection: DS - Disabilities Eligibility: SERVICE CONNECTED 50% to 100% VERIFIED Total S/C %: 100 LIMITED FLEXION OF KNEE 10%S/C 2ND DEGREE SHELDON 0%S/C PARALYSIS OF SCIATIC NERVE 40%S/C 2ND DEGREE SHELDON 0%S/C KNEE PROSTHESIS 60%S/C SCARS 0%S/C DEGENERATIVE ARTHRITIS OF THE SPINE 40%S/C CHRONIC ADJUSTMENT DISORDER 30%S/C HYPERTENSIVE VASCULAR DISEASE 10%S/C PARALYSIS OF SCIATIC NERVE 40%S/C Diagnosis: ABRAHAM - Active Problems 15 Active Problems PROBLEM LAST MOD PROVIDER Knee pain 05/25/2021 ISAC BOOKER MD Type 2 diabetes mellitus 07/25/2015 ISAC BOOKER MD Benign essential hypertension 07/25/2015 ISAC BOOKER MD Rheumatoid arthritis 07/25/2015 IASC BOOKER MD Cerebral infarction 03/03/2021 ISAC BOOKER MD Seizure 11/29/2021 ISAC BOOKER MD Atrial fibrillation 04/01/2022 JOSEPH STAUFFER Gastroesophageal reflux disease 04/01/2022 JOSEPH STAUFFER Peripheral nerve disease 04/01/2022 JOSEPH STAUFFER Hyperlipidemia 04/01/2022 JOSEPH STAUFFER Benign prostatic hyperplasia 04/01/2022 JOSEPH STAUFFER Osteoarthritis of lumbar spine 11/04/2023 JOSEPH STAUFFER Bunion 10/10/2023 JOSEPH STAUFFER Osteoarthritis of shoulder 11/04/2023 JOSEPH STAUFFER Cyst 10/10/2023 JOSEPH STAUFFER Method of contact: __ Telephone: __ VA facility __ In-Home _X_ Telehealth / VA Video Connect [facility] contact details: Best contact number for backup/emergency communication with (required): Phone number: __ Other: __ Caregiver declined to provide emergency contact information [facility] location during visit: _X_ Home address: [facility] [address] [place], [place] [address] __ Other non-VA location __ Caregiver declined request to disclose current location If caregiver will not provide requested information: The caregiver must be made aware of the risks associated with not providing the information. The clinician must decide with the caregiver if the visit can continue without this information. The caregivers understanding of the risks along with the clinicians plan to proceed or to use another care modality must be documented in the medical record. _X_ Others present for visit with veterans consent: Name: Zan Hunter confirms location is private and safe for visit. Yes Virtual Conference Door Locked: Yes Visit conducted by clinical video telehealth: Yes verbal consent obtained. Yes Location/emergency number confirmed. Yes INFORMATION [facility] is receiving care from: _X_ Primary Family Caregiver, name: Zan Hunter __ Secondary Family Caregiver, name: __ Secondary #2 Family Caregiver, name: Have there been any changes to the Veterans address: [address] [place], [place] [address] telephone number: e-mail address: Is Veterans contact information in electronic health record and the Caregiver Support Program IT system current? Yes Updates: Information is current. Have there been any changes to the individuals living in the Veterans household? No Updates: No changes. Have there been any changes in the Veterans Advanced Directive for Health Care, Guardianship/Conservator or Fiduciary status? No Updates: No changes. ASSESSMENT How has your physical/mental/emotional health been lately? Have there been any changes (falls, ER visits, hospitalizations)? Details: I am excellent. I have pain here and there but that comes with territory . denied having any new or worsening physical or mental health concerns. Caregiver shared only current issues are with dental, all other conditions are stable/same. Caregiver shared he continues to ensure [facility] is attending all appointments regularly, we have something about every week. No major changes in his health, continues to require assistance with hygiene tasks and supervision with mobility to ensure safety. denied having any falls, ER visits or hospitalizations. Do you have any medication concerns? No Details: [facility] denied having any issues with medications. Support services currently in place include: (check all that apply) Home Health Aide - 8hr/wk. Outpatient Respite - 12hr/wk. Inpatient Respite Skilled Outpatient Respite Adult Day Health Longterm Based Primary Care [facility] In-Home Palliative Care/Hospice Other: Do you feel that your care needs are being adequately met in the home? (discuss any areas of concern) Yes Details: Yes . [facility] reports his needs are met in the home with assistance and support from his son (Caregiver) and the Home Health aide. He also shared that they have great support from his son's neighbors and friends who will provide support when needed. Caregiver confirmed having necessary equipment needed in bathroom and around home to ensure [facility]'s safety; shared that the condo they are residing is owned by elderly woman who had modifications done around the home. What current challenges or stressors do you have, if any? Details: No, very seldom do I feel stressed. How are you coping with these issues? (discuss coping skills and support systems as appropriate, consider referral to mental health) Details: I use my squeezy (Stress ball) . Caregiver shared that gets out of the home often to keep him active and socialized. Do you feel comfortable and safe in your home environment? Yes Details: Denied having any concerns with home environment. How can the Caregiver Support Program support you? What goals/needs can we assist you with? Details: Nothing I can think of right now . SUMMARY OF VISIT/ACTION TAKEN Wellness Contact completed via [facility] with [facility] and Caregiver. [facility] was actively engaged in conversation, presented with good mood, oriented/alert, and with normal speech and logical thought process. reports no significant changes in his health since approval in August. He shared that his needs are met with support/assistance from his son and agency aide (20 hr:wk). denied having any major stressors or challenges. CSC provided education on Volunteer In Incident Handler program after joked that his aide cannot play chess. Caregiver and were appreciative of the information, declined any referral at this time. denied needing any additional support or assistance from CSP at this time. CSC reviewed Roles, Responsibilities, and Requirements and Revocation and Discharge with and Caregiver. Both voiced understanding. PLAN No follow-up needed outside of regularly scheduled [facility] Wellness Contacts /es/ ROBERT Arteaga, SENSITIZED PAPER TESTER Clinical Investment Executive Signed: 01/14/2024 11:32 SHANNON PEREZ [facility]
--- OUTSIDE RECORDS SUMMARY | 2024-10-02 09:01 | XMS_ITS | Encounter Summary ---
Author Organization [facility] Address [address] [place] [address] Care Team Providers Care Medical Center Director Name Role Phone Maxim Martínez MD Primary Care Provider Maxim Martínez MD Unavailable Eboni Watkins APRN-BALBIR Unavailable [phone] Cheyanne Allan MD Unavailable Betzy Montana MD Unavailable [phone] Manisha Cao RN Unavailable Dora Peraza MD Unavailable Encounter Details Date Type Department Care Team (Late st Contact Info) Description 04/22/2020 2:09 PM DESIGN STUDIO CONSULTANT Hospital Encounter [address] [address] Laureen Roberts MD [facility] [address] [place] [phone] Nena [place] [address] [facility] [place] [address] Select Direct Social History Tobacco [...] Recorded Patient Health Questionnaire-2 Score 0 02/04/2024 [facility] [place] of Occupat ional Health - Occupational Stress [...] place to sleep or slept in a prison (including now)? No 02/26/2023 Sex and Gender Information Value Date Recorded Sex Assigned at Not on file Legal Sex Male 1:20 PM DESIGN STUDIO CONSULTANT Gender Identity Not on file Sexual Orientation [...] COVID-19 Confirmed 04/13/2020 04/13/2020 0 4:34 AM DESIGN STUDIO CONSULTANT C DIFF 04/22/2020 04/22/2020 09/23/2020 8:37 AM CDT COVID-19 Confirmed Comment:Added from external infection. 08/01/2020 12/23/2020 8:11 AM C DT COVID-19 Under Investigation 03/02/2022 03/02/2022 03/02/2022 3:05 PM CDT CDIFF Under Investigation 07/29/2022 07/29/2022 7:20 AM CDT documented as of this encounter Care Teams Medical Center Director Relationship Specialty Start Date End Date Maxim Martínez MD PCP - General 02/11/20 10/16/20 Eboni Watkins APRN-GENETICS PHYSICIAN [address] [place] [address] PCP - Attributed-MSSP 11/11/19 11/09/20 Maxim Martínez MD Family Medicine 02/11/20 08/03/20 [place] [address] [facility] [address] [place] [phone] Urology 03/20/16 01/17/21 Betzy Montana MD [address] [place] [address] [address] [place], [place] [id number] Rheumatology 11/24/19 Manisha Cao RN Bead CutterPhysician Credentialing Specialist 02/10/20 09/22/23 [place] [address] [place], [place] [id number] Orthopedic Surgery 03/14/20 documented as of this encounter
--- OUTSIDE RECORDS SUMMARY | 2024-10-02 09:01 | XMS_ITS | Encounter Summary ---
Author Name [facility] [facility] [place] [facility] [place] [facility] [place] Address [address] [place] [address] Care Team Providers Care Food And Nutrition Services Assistant Name Role Phone EHINNA Primary Care Provider Unavailabl e Insurance Providers: [...] STAND WILLI FAM Jun 03, 2018 105 [id number] [phone] Abdiel HUNTER PATIENT ANTHE[place] [employer] F[place] PREFERRED PROVIDER ORGANIZAT ION (PPO) FEP STAND WILLI FAM Jun 03, 2018 105 [id number] [phone] Abdiel HUNTER PATIENT AN[place] PREFERRED PROVIDER ORGANIZAT ION (PPO) FEP STAND WILLI FAM Jun 03, 2018 105 [id number] [phone] Abdiel HUNTER PATIENT [place] PREFERRED PROVIDER ORGANIZAT ION (PPO) FEP STAND WILLI FAM Jun 03, 2018 105 [id number] [phone] Abdiel HUNTER PATIENT [employer] FEP ([id number]) PRESCRIPT ION FEPRX May 20, 1994 [id number] [phone] Abdiel HUNTER PATIENT MEDICARE (WNR) MEDICARE (M) PART A Aug 11, 2014 PART A [id number] Abdiel HUNTER PATIENT MEDICARE (WNR) MEDICARE (M) PART B Aug 11, 2014 PART B [id number] Abdiel HUNTER PATIENT Selected Encounter This section includes the information on record at [place] for the Encounter. Date/Time Encounter Type Encounter Description Reason Provider Source October 08, 2023 10:30 AM Outpatient Encounter PRIMARY CARE/MEDICINE ICD-10-CM Z00.00 Encntr for general adult medical exam w/o abnormal findings INNA STAUFFER [facility] Encounter Template Text not used by [place] Assessments - Encounter Diagnoses This section includes the primary and secondary diagnoses documented for the Encounter. Date/Time Primary/Secondary Diagnosis Diagnosis Name Provider Source October 10, 2023 09:07 AM PRIMARY Encntr for general adult medical exam w/o abnormal findings INNA STAUFFER [facility] October 10, 2023 09:07 AM SECONDARY Benign prostatic hyperplasia without lower urinry tract symp INNA STAUFFER Yehuda [facility] October 10, 2023 09:07 AM SECONDARY Bunion of unspecified foot INNA STAUFFER [facility] October 10, 2023 09:07 AM SECONDARY Cerebral infarction, unspecified INNA STAUFFER [facility] October 10, 2023 09:07 AM SECONDARY Essential (primary) hypertension INNA STAUFFER [facility] October 10, 2023 09:07 AM SECONDARY Gastro-esophageal reflux disease without esophagitis INNA STAUFFER [facility] October 10, 2023 09:07 AM SECONDARY Hyperlipidemia, unspecified NINA STAUFFER [facility] October 10, 2023 09:07 AM SECONDARY Low back pain, unspecified INNA STAUFFER [facility] October 10, 2023 09:07 AM SECONDARY Other disorders of peripheral nervous system INNA STAUFFER [facility] October 10, 2023 09:07 AM SECONDARY Pain in left knee INNA STAUFFER [facility] October 10, 2023 09:07 AM SECONDARY Pain in left shoulder INNA STAUFFER [facility] October 10, 2023 09:07 AM SECONDARY Rash and other nonspecific skin eruption INNA STAUFFER [facility] October 10, 2023 09:07 AM SECONDARY Rheumatoid arthritis, unspecified INNA STAUFFER [facility] October 10, 2023 09:07 AM SECONDARY Type 2 diabetes mellitus without complications INNA STAUFFER [facility] October 10, 2023 09:07 AM SECONDARY Unspecified atrial fibrillation INNA STAUFFER [facility] October 10, 2023 09:07 AM SECONDARY Unspecified convulsions INNA STAUFFER [facility] Plan of Treatment: Future Appointments (+ 6 months) and Future Tests (+/- 45 days) The Plan of Treatment section includes future care activities for the patient from [facility] [place] [facility] This section includes future appointments and future orders which are active, pending or scheduled. Future Appointments This section includes appointments that were scheduled to occur 6 months from the date of the Encounter, up to a maximum of 20 appointments. The data comes from all [facility] facilities. Appointment Date/Time Appointment Type Appointme nt Facility Name Oct 25, 2023 08:00 AM AMBULATORY - NONE [facility] Oct 29, 2023 01:00 PM AMBULATORY - NONE [facility] Nov 07, 2023 09:30 AM AMBULATORY - SURGERY [facility] Nov 18, 2023 10:30 AM AMBULATORY - NONE [facility] Dec 02, 2023 12:00 PM AMBULATORY - NONE [facility] Dec 05, 2023 11:00 AM AMBULATORY - REHAB MEDICIN E [facility] Dec 10, 2023 01:00 PM AMBULATORY - MEDICINE [facility] Dec 20, 2023 12:00 PM AMBULATORY - NONE [facility] Dec 23, 2023 02:00 PM AMBULATORY - REHAB MEDICIN E [facility] Jan 10, 2024 09:30 AM [facility]UL[facility]ORY - NONE [facility] Jan 14, 2024 10:30 AM AMBULATORY - MEDICINE [facility] Jan 16, 2024 11:00 AM AMBULATORY - SURGERY [facility] Jan 17, 2024 12:00 PM AMBULATORY - NONE [facility] Jan 24, 2024 11:00 AM AMBULATORY - REHAB MEDICIN E . [facility] Feb 10, 2024 11:00 AM AMBULATORY - NONE [facility] Feb 10, 2024 02:00 PM AMBULATORY - NONE [facility] Feb 28, 2024 11:00 AM AMBULATORY - REHAB MEDICIN E . [facility] Mar 05, 2024 10:30 AM AMBULATORY - NONE [facility] Mar 11, 2024 10:00 AM AMBULATORY - NONE [facility] Mar 11, 2024 12:00 PM AMBULATORY - NONE [facility] Lab Results: +/- 30 days of the encounter This section includes the Chemistry and Hematology Lab Results on record with [facility] for the patient. Radiology Reports and Pathology Reports are provided separately, in subsequent sections. Lab Results This section contains the Chemistry/Hematology Results that were resulted 30 days before or 30 daysafter the date of the Encounter. Date/Time Source Result Type Result - Unit Interpretation Reference Range Specimen Type Comment Nov 07, 2023 11:18 AM [facility] BASIC METABOLIC PANEL PLASMA Specimen Type: PLASMA Comment: No hemolysis noted. Ordering Provider: SKYLA RENAE MM Report Released Date/Time: Nov 07, 2023 10:50 AM Reporting Lab: [facility] [address] [facility] [address] Performing Lab: [address] [address] CREATININE 1.29 mg/dL 0.7-1.3 UREA NITROGEN 17.7 mg/dL 9.0-25.0 GLUCOSE 136 mg/dL H 72-99 SODIUM 138 meq/L 136-145 POTASSIUM 3.5 meq/L 3.5-5 CHLORIDE 103 meq/L 98-107 CARBON DIOXIDE 25 meq/L 22-31 CALCIUM 10.2 mg/dL 8.4-10.4 EGFR (CKD-EPI 2020) 58.2 >60 Nov 07, 2023 11:18 AM [facility] CBC BLOOD Specimen Type: BLOOD No comment entered. Ordering Provider: SKYLA RENAE MM Report Released Date/Time: Nov 07, 2023 10:50 AM Reporting Lab: [facility] [address] [facility] [address] Performing Lab: [facility] [address] [facility] [address] WBC 4.7 10*3/uL 3.6-11.2 RBC 4.60 10*6/uL 4.10-5.70 HGB 12.2 g/dL L 13.1-16.8 HCT 37.8 L 38.2-48.4 MCV 82.2 fL 80.0-100.0 MCH 26.5 pg L 27.0-34.0 MCHC 32.3 g/dL L 33.0-36.0 PLT 340 10*3/uL 150-400 MPV 8.6 fL 7.5-11.2 RDW 16.4 H 11.8-15.1 LYMPHOCYTES, AUTO % 37 MONOCYTES, AUTO % 8 NEUTROPHILS, AUTO % 51 EOSINOPHILS, AUTO % 3 BASOPHILS, AUTO % 1 LYMPHOCYTES, ABSOLUTE 1.74 10*3/uL 0.77- 4.50 MONOCYTES, ABSOLUTE 0.39 10*3/uL 0.19-0. 80 NEUTROPHILS, ABSOLUTE 2.35 10*3/uL 2.10- 8.00 EOSINOPHILS, ABSOLUTE 0.12 10*3/uL 0.00- 0.60 BASOPHILS, ABSOLUTE 0.04 10*3/uL 0.00-0. 20 Vital Signs: All taken on the encounter date This section contains inpatient and outpatient Vital Signs collected on the date of the Encounter. Date/Time Temperature Pulse Blood Pressure Respiratory Rate SP02 Pain Height Weight Body Mass Index Source October 08, 2023 10:23 AM 137/82 [facility] October 08, 2023 10:23 AM 98.3 96 151/83 [address] [facility] Social History: Smoking Status (Most current) and Tobacco Use (All prior to encounter date) This section includes the most current, and the historical, smoking and tobacco- related health factors from the [place] facility where the Encounter took place. Current Smoking Status This section includes the most current smoking, or tobacco-related health factor, from the [place] facility where the Encounter took place. Date/Time Current Smoking Status Comment Facil ity October 08, 2023 10:30 AM VA-TOBACCO NEVER USED [facility] Tobacco Use History This section includes a history of the smoking, or tobacco-related health factors, that were collected on or before the date of the Encounter. The data comes from the [place] facility where the Encounter took place. Date/Time Smoking Status/Tobacco Use Comment F acility Mar 30, 2022 01:30 PM VA-TOBACCO NEVER USED [facility] May 26, 2020 10:00 AM VA-TOBACCO NEVER USED [facility] Jul 30, 2018 09:50 AM VA-TOBACCO NEVER USED [facility] Aug 01, 2016 10:23 AM LIFETIME NON-USER OF TOBACCO [facility] Jul 25, 2015 11:09 AM LIFETIME NON-USER OF TOBACCO . [facility] Advance Directives: All historical and current Section Date Range: From patient's date of to the date document was created. This section includes ALL of a patient's completed or amended [place] Advance and Rescinded Directives. The entries below indicate that a directive exists for the patient, but an actual copy is not included with this document. The data comes from all [place] facilities. Date Advance Directives Provider Source Dec 08, 2020 ADVANCE DIRECTIVE [address] [facility] Radiology Reports: +/- 30 days of the encounter Radiology Reports For cases when an order for radiology services may have been completed prior to the date of the Encounter, the report list includes the Radiology Reports that were completed up to 30 days before dateof the Encounter. For cases when an order for radiology services may have been completed after the date of the Encounter, the report list also includes the Radiology Reports that were completed up to30 days after date of the Encounter. The data comes from all [place] treatment facilities. Date/Time Radiology Report Provider Source Nov 07, 2023 10:55 AM CHEST X-RAY, 2 VIEWS: JESSE HUNTER [id number] -1950 M Exm Date: NOV 07, 2023@10:55 Req Phys: SKYLA RENAE MM Loc: [facility] (Req'g L Img Loc: [facility] SUITE Service: Unknown [address] [address] (Case [id number] COMPLETE) CHEST X-RAY, 2 VIEWS (RAD Detailed) CPT:41457 Reason for Study: Pre-op evaluation Clinical History: Report Status: Verified Date Reported: NOV 07, 2023 Date Verified: NOV 07, 2023 Pmp Certified Project Manager E-Sig:/ES/PER SANDHU Report: CHEST X-RAY, 2 VIEWS [id number] DATE: 11/07/2023 10:55 AM HISTORY: Pre-op evaluation. COMPARISON: None. Findings: The heart size and mediastinal shadows are normal for the provided technique. The lungs are clear. There is no pneumothorax nor pleural effusion. The bony structures are age-appropriate. Impression: No visible acute cardiopulmonary disease. Primary Interpreting Staff: PER SANDHU, Diagnostic Radiologist (Pmp Certified Project Manager) /PER BRENNER [facility] Oct 29, 2023 02:01 PM SPINE LUMBOSACRAL 2 OR 3 VIEWS: JESSE HUNTER [id number] -1950 M Exm Date: OCT 29, 2023@14:01 Req Phys: INNA STAUFFER Loc: [facility] PACT 3 PCP (Req'g Lo Img Loc: [facility] SUITE Service: Unknown [address] [address] (Case [id number] COMPLETE) SPINE LUMBOSACRAL 2 OR 3 VIEWS (RAD Detailed) CPT:97138 Reason for Study: Lumbar pain Clinical History: Report Status: Verified Date Reported: OCT 31, 2023 Date Verified: OCT 31, 2023 Pmp Certified Project Manager E-Sig:/ES/OTF MORA Report: Case [id number]. SPINE LUMBOSACRAL 2 OR 3 VIEWS DATE: 10/29/2023 2:01 PM HISTORY: Lumbar pain . COMPARISON: Lumbar radiographs 02/27/2012 FINDINGS: AP and lateral views of the lumbar spine demonstrate no acute fracture.. Straightening of normal lumbar lordotic curvature as before. Overall progressive lumbar spine disc space narrowing now appearing moderate at L5-S1, mild at L4-L5, mild to moderate at L3-L4 and mild at L2-L3.. Diffuse multilevel mild to moderate facet osteoarthritis. Multilevel anterior endplate spurring showing most progression at the L3-4 and L4-L5 levels. Cholecystectomy clips now identified. Impression: Progressive lumbar spine osteoarthritis with no lumbar fracture.. Primary Interpreting Staff: OTF MORA, RADIOLOGIST (Pmp Certified Project Manager) /OTF MULTANI [facility] Oct 29, 2023 02:01 PM SHOULDER,LEFT,2 OR MORE VIEWS: JESSE HUNTER [id number] -1950 M Exm Date: OCT 29, 2023@14:01 Req Phys: INNA STAUFFER Loc: -[facility] PACT 3 PCP (Req'g Lo Img Loc: -MAIN RADIOLOGY SUITE Service: [facility], [address] [place] [address] (Case [id number] COMPLETE) SHOULDER,LEFT,2 OR MORE VIEWS (RAD Detailed) CPT:81533 Proc Modifiers : LEFT Reason for Study: Left shoulder pain Clinical History: Report Status: Verified Date Reported: OCT 31, 2023 Date Verified: OCT 31, 2023 Pmp Certified Project Manager E-Sig:/ES/HESHAM GLOVER MD Report: Case [id number] SHOULDER,LEFT,2 OR MORE VIEWS Comparison: None Findings: There is no fracture or dislocation. There is mild joint space narrowing and osteophyte formation at the acromioclavicular and glenohumeral joints. The visualized lung apex is clear. Impression: Mild glenohumeral and acromioclavicular osteoarthritis. Dictated by Fritz Thao M.D. (resident engineer) Hesham Rocha, have reviewed the images and report and concur with these findings. Primary Interpreting Staff: HESHAM GLOVER MD, Radiologist (Pmp Certified Project Manager) Primary Interpreting Resident: Heath Jenkins, Resident /HESHAM JEFFERY [facility] [place] [facility] Encounter Notes: All associated encounter notes This section contains the clinical notes associated to the Encounter. Date/Time Encounter Note(s) Provider Source Nov 13, 2023 08:23 PM ADDENDUM: LOCAL TITLE: Addendum STANDARD TITLE: ADDENDUM DATE OF NOTE: NOV 13, 2023@20:23:03 ENTRY DATE: NOV 13, 2023@20:23:03 AUTHOR: INNA STAUFFER COSIGNER: URGENCY: STATUS: COMPLETED RNCM please notify patient that the [facility] pain management consult was cancelled with the below comment: no recent mri of ls spine. has patient seen other providers and trailed alternatives in regards to low back pain has conservative measures trialed for shoulder pain? please address above and not improved reconsult chronic pain clinic. -RNCM please complete MRI questionnaire for for this provider to place a lumbar MRI. -RNCM please see if the is agreeable to [facility] OT consult for the shoulder pain. Thank you! /renzo/ Inna Stauffer DNP, PREPRESS PROOFER, VENTILATOR SPECIALIST-C Primary Care Nurse Practitioner Signed: 11/13/2023 20:25 Receipt Acknowledged By: 11/19/2023 16:02 /renzo/ GLADYS PETIT RN BSN REGISTERED NURSE --- Original Document --- 10/08/23 PRIMARY CARE PROVIDER ESTABLISHED VISIT STL: REASON FOR VISIT/CHIEF COMPLAINT: Evaluation and management of chronic medical conditions/ My scheduled visit HPI: Patient is a 73 year old BLACK OR MALE who presents to the clinic for evaluation and management of chronic medical conditions. Patient denies any recent ED visits or hospitalizations. Patient goes by Jesse. Patient is accompanied by his caregiver whom he states is acceptable to discuss his healthcare with. Patient requesting beneficiary travel consult with his being able to attend with him, this consult was placed. Private providers: -Patients primary care is managed in the private sector. -Private PCP previously Dr. Shemar Hassan, reports obtained a new PCP, patient unsure of name. -Private rheumatology previously Dr. Betzy Montana, reports obtained a new diplomatic courier, patient unsure of name. -Private cardiology Dr. Hesham Luque and Dr. Wyatt Ang. -Private NSURG previously Dr. Maldonado, provider recently changed (patient unsure of name). -Private podiatry Dr. Noriega. -Private optometry. #Atrial fibrillation: -Medication: Plavix, Eliquis and Sotalol. Denies s/s of bleeding with anticoagulation. -Had watchman placed 03/04/22. #DM 2/peripheral neuropathy: -A1C: <7 per patient. Obtains labs in private sector. -Medications: Metformin and Insulin Aspart sliding scale. -Pregabalin for neuropathy. -Reports compliance to medication regimen. -Eye exam: per private optometry. -Foot exam: Per private podiatry. -Micral: Per private provider. -Statin: Yes. -ACEI: Declines. -Denies recent hypo/hyperglycemia episodes. -Patient is prescribed Lyrica with relief for neuropathy. -Patient is requesting diabetic shoes and socks. Patient is a size 13 shoe and is requesting black socks. #HTN: -Medications: Amlodipine. -Reports compliance to medication regimen. -Reports having blood pressure machine at home. -Blood pressure readings at home: <130/80. -Denies CP, SOB, heart palpitations, headaches, blurred vision, dizziness/lightheadedness. #HLD: -Medication: Atorvastatin. -Reports compliance with medication regimen. -Denies any new onset of myalgias. #GERD: -EGD dilatation 02/2022. -Medication: Pantoprazole and PANCRELIPASE. -Reports compliance with medication regimen. -Denies concerns today. #LUTS/BPH: -Medications: Finasteride, BETHANECHOL CHLORIDE and TAMSULOSIN. -Has size large depends. -Denies frequency, hesitancy, urgency, burning with urination or hematuria. #Low back pain: -Chronic. -Medication: Hydrocodone/acetaminophen. -Has trialed Lidocaine and various creams without relief. -Has completed PT and chiropractor historically without relief. -Has back brace at home, uses PRN. -Patient denies having a lumbar x-ray within the last 6 months. -Denies bowel or bladder incontinence and saddle anesthesia. -Patient requesting pain management consult. #RA: -Stable, denies concerns today. #Chronic bilateral knee pain: -Secondary to knee replacement (4 times) and s/p septic left knee. -Completed PT 08/2022. -Has bilateral knee braces. -Denies pain in the clinic today. -Denies recent injury. #Hx of CVA/seizure activity: -Stable, denies concerns today. -Denies recent seizure activity. Reports last seizure 05/07/22. -Medication: Levetiracetam. -Has residual left leg weakness and facial droop. -Evaluated by neurologist and NSURG historically. #Fall: -Patient denies any recent falls. -Patient has had a OT safety evaluation with grab bars placed in the home historically. -Patient using walker today. Patient requesting a seated walker, this consult was placed. -Patient attends respite through [facility]. #Left bunion: -Chronic in nature. -Patient reports established with private podiatry that manages this. #Cyst located to posterior lower head: -Patient reports this appeared approx. 1 week ago. Reports he noticed some discharge and the size of the cyst was decreased. This is the size of approx. a pea at this time. Patient agreeable to [place] surgery consult to consider removal. #Left shoulder pain: -Onset: 2022, exacerbated 1 week ago. -Duration: Intermittent. -Character: Ache. -Aggravating factors: Standing up. -Relieving factors: Rest. -Medications: Hydrocodone/acetaminophen. -Treatments: Participated in PT in 2022 for this. -Injury: Denies. -Imaging: Has obtained historically >1 year ago. -Patient requesting pain management consult. SOURCE(S) OF HISTORY: Patient PAST MEDICAL HISTORY: 1) DIAPHRAGMATIC HERNIA 2) OSTEOARTHROS NOS-UNSPEC 3) PEPTIC ULCER NOS 4) Knee pain (SNOMED CT [id number]) 5) Type 2 diabetes mellitus 6) Benign essential hypertension 7) Rheumatoid arthritis 8) Cerebral infarction 9) Seizure 10) Atrial fibrillation 11) Gastroesophageal reflux disease 12) Peripheral nerve disease 13) Hyperlipidemia 14) Benign prostatic hyperplasia 15) Low back pain SOCIAL HISTORY: Tobacco: Denies. Alcohol: Denies. Illicit: Denies. ALLERGIES: PENICILLIN, [facility], REGLAN ALLERGY REVIEW: Allergy list reviewed and remains current. MEDICATIONS: Active and Recently Outpatient Medications (excluding Supplies): Active Outpatient Medications Status 1) ACCU-CHEK GUIDE (GLUCOSE) TEST STRIP USE 1 STRIP FOR ACTIVE BLOOD TEST FOUR TIMES A DAY FOR BLOOD SUGAR MONITORING *INTENSIVE INSULIN THERAPY- UP TO 4 TIMES DAILY Apr Active Non-VA Medications Status 1) Non-VA AMLODIPINE BESYLATE 2.5MG TAB 2.5MG BY MOUTH ACTIVE ONCE A DAY 2) Non-VA APIXABAN 5MG TAB 5MG BY MOUTH TWICE A DAY ACTIVE 3) Non-VA ATORVASTATIN CALCIUM 40MG TAB 20MG BY MOUTH ACTIVE EVERY EVENING 4) Non-VA BETHANECHOL CHLORIDE 25MG TAB 50MG BY MOUTH ACTIVE THREE TIMES A DAY 5) Non-VA CLOPIDOGREL BISULFATE 75MG TAB 75MG BY MOUTH ACTIVE ONCE A DAY 6) Non-VA FINASTERIDE 5MG TAB 5MG BY MOUTH ONCE A DAY ACTIVE 7) Non-VA HYDROCODONE 7.5/ACETAMINOPHEN 325MG TAB 1 ACTIVE TABLET BY MOUTH EVERY 6 HOURS NEEDED 8) Non-VA HYDROXYCHLOROQUINE SULFATE 200MG TAB 100MG BY ACTIVE MOUTH TWICE A DAY 9) Non-VA INSULIN,ASPART,HUMAN 100 UNIT/ML INJ 2 UNITS ACTIVE UNDER THE SKIN THREE TIMES A DAY BEFORE MEALS 10) Non-VA LATANOPROST 0.005% OPH SOLN 1 DROP BOTH EYES ACTIVE EVERY EVENING 11) Non-VA LEVETIRACETAM 500MG TAB 1000MG BY MOUTH TWICE ACTIVE A DAY 12) Non-VA MAGNESIUM OXIDE 400MG TAB 400MG BY MOUTH ONCE ACTIVE A DAY 13) Non-VA METFORMIN 1000/SAXAGLIPTIN 2.5MG SA TAB 2 ACTIVE TABLETS BY MOUTH ONCE A DAY 14) Non-VA PANCRELIPASE (EQV-ZENPEP) 5,000 EC CAP 3 ACTIVE CAPSULES BY MOUTH THREE TIMES A DAY BEFORE MEALS 15) Non-VA PANTOPRAZOLE NA 40MG EC TAB 40MG BY MOUTH ACTIVE EVERY MORNING 16) Non-VA PREGABALIN 75MG ORAL CAP 75MG BY MOUTH AT ACTIVE BEDTIME 17) Non-VA SOTALOL TAB BY MOUTH ACTIVE 18) Non-VA TAMSULOSIN HCL 0.4MG CAP 0.4MG BY MOUTH EVERY ACTIVE EVENING 19 Total Medications REVIEW OF SYSTEMS: Constitutional: Denies weight loss, fever, chills. Ears, Nose, Mouth, Throat: Denies nasal drainage or sore throat. Denies dizziness. Denies hearing loss. Endocrinology: Denies heat or cold intolerance, polydipsia, polyuria, or polyphagia. Cardiovascular: Denies chest pain, palpitations, or dizziness. Respiratory: Denies cough or shortness of breath. ABD/GI: Denies abdominal pain, nausea, vomiting, constipation, diarrhea or incontinence. Musculoskeletal/Extremities: Denies edema. Denies pain. 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 Psychology: Denies insomnia or SI/HI. Denies anxiety or depression. Neurology: Denies WEAVER, tremors, neuropathy, or seizures. Skin: Denies rashes, skin lesions. PHYSICAL EXAMINATION: VITALS (most recent, as listed in the electronic record): Temperature: 98.3 F [36.8 C] (10/08/2023 10:23) BP: 137/82 (10/08/2023 10:23) Pulse: 96 (10/08/2023 10:23) Resp: 18 (10/08/2023 10:23) PulsOx: 100% (10/08/2023 10:23) Pain: 8 (10/08/2023 10:23) Weight: Measurement DT WEIGHT LB(KG)[BMI] 10/08/2023 10:23 176.8(80.20)[23] HEENT: EOMI, PERRLA, Moist mucous membranes. No Scleral icterus or cervical lymphadenopathy. Lungs: Clear to auscultation bilaterally. No accessory muscle use. Cardiovascular: Regular rate and rhythm. No murmur. No JVD. Abdomen: Soft, nontender and non-distended. No palpable masses. Positive bowel sounds in all four quadrants. Extremities: No edema. Nontender. Full ROM to all joints. 2+ pedal pulses bilaterally. Gait steady. : Deferred. Neurologic: No focal neurological deficits. Psychiatric: Appropriate mood and affect. Skin: Skin warm, dry and intact. No lesions or rashes noted. Health maintenance: -Declines immunizations today. Immunization Series Date Facility Reaction COVID-19 (PFIZER), MRNA, LNP-S, * 1 03/06/2022 [facility]:[place] IIS COVID-19 (PFIZER), MRNA, LNP-S, * 3 01/12/2021 [facility] [facility] COVID-19 (PFIZER), MRNA, LNP-S, * 2 08/05/2020 [facility] [facility] COVID-19 (PFIZER), MRNA, LNP-S, * 1 07/08/2020 [facility] [facility] COVID-19 (PFIZER), MRNA, LNP-S, * 4 11/17/2021 [facility] [facility] HEP A-HEP B 1 01/22/2020 [facility]:[place] [facility] INFLUENZA VACCINE, QUADRIVALENT,* 5 03/06/2022 [facility] PNEUMOCOCCAL CONJUGATE PCV 13 05/14/2016 No Site <C> PNEUMOCOCCAL CONJUGATE PCV 13 1 03/20/2016 [facility] PNEUMOCOCCAL POLYSACCHARIDE PPV23 02/18/2017 No Site TDAP 1 01/22/2020 [facility] [facility] TDAP 1 11/29/2016 [facility] TDAP No Site ZOSTER RECOMBINANT 2 10/03/2022 [facility]* ZOSTER RECOMBINANT 07/06/2022 [facility]* Colonoscopy: Aged out per . Evaluation and management per private PCP. PSA: Obtains in private sector. Eye exam: Eye clinic contact information given. Obtains labs in the private sector with private providers. ASSESSMENT/PLAN: Annual visit: -Routine labs reviewed. -Preventative health screenings reviewed. -Recommend regular eye exams. -Discussed Fall Safety. -Continue wearing mask in public and wash hands frequently. -Immunizations reviewed. -Evaluation and management per private PCP. Atrial fibrillation: -Controlled. -Continue medication regimen. -Lifestyle modifications reviewed. -Evaluation and management per private cardiology. DM 2: -Continue to check BG as recommended. -Continue medication regimen. -Reviewed lifestyle modifications. -Educated to check feet daily and to have an eye exam yearly. -Foot exam completed today. -Diabetic shoes and socks ordered. -Evaluation and management per private podiatry. -Evaluation and management per private PCP. HTN: -Continue prescribed regimen. -Instructed patient to check BP daily 1-2 hours after medications. -Discussed importance of regular exercise and/or physical activity in the control of blood pressure. -Discussed low sodium diet w/ <2 g daily. -Discussed avoidance of caffeine. -Discussed appropriate sleep hygiene and quality with >6 hours of uninterrupted sleep. -Self-monitor BP at home and report readings consistently above goal of <130/80. -Evaluation and management per private PCP. HLD: -Continue medication regimen. -Reviewed lifestyle modifications including participating in a low fat/low cholesterol diet. -Dietitian contact information given. -Evaluation and management per private PCP. GERD: -Continue medication regimen. -Reviewed lifestyle modifications. -Educated to avoid triggering foods such as alcohol, caffeinated drinks, chocolate, coffee, spicy foods, citrus foods, tomatoes etc. -Evaluation and management per private PCP. LUTS/BPH: -Continue medication regimen. -Educated to limit fluid intake to frequent smaller amounts and decrease after evening meal, urinate frequently during the day, reduce or avoid caffeine and alcohol, and to avoid medications that can cause urinary retention or frequency when possible. -Evaluation and management per private PCP. Low back pain: -Continue medication regimen. -Whole health contact information given. -Pain management consult placed. -Lumbar x-ray ordered, once obtained plan to consult [facility] pain management. -Evaluation and management per private PCP. RA: -Stable. -Evaluation and management per private rheumatology. Chronic bilateral knee pain: -Controlled. -Evaluation and management per private PCP. Hx of CVA/seizure activity: -Stable. -Evaluation and management per private NSURG. Fall: -Fall safety reviewed. -Evaluation and management per private PCP. Left bunion: -Evaluation and management per private podiatry. Cyst located to posterior lower head: -VA general surgery consult placed. Left shoulder pain: -Continue medication regimen. -Whole health contact information given. -Pain management consult placed. -Left shoulder x-ray ordered, once obtained plan to consult VA pain management. -Evaluation and management per private PCP. RETURN TO CLINIC: 1 year or earlier as needed. SUMMARY STATEMENT: Plan of care has been discussed with including expected therapeutic benefits and potential side effects of prescribed medication and treatments. [place] verbalizes understanding and is in agreement with the plan of care. Patient was instructed to keep all scheduled appointments and contact heel former for any additional problems. 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 Handwritten corrections, additions and/or deletions were made to the list, as appropriate. Corrected Outpatient Medication List was provided to the patient/caregiver. Assess Statin Use - Lipids (CVD/DM): The patient is still taking the NON-VA statin medication as documented. Tobacco Use Screening: The patient has never used tobacco. Avg Risk Colorectal Cancer Screen: AVERAGE RISK colorectal cancer screening is due based on information available to this clinical reminder Patient declined screening/surveillance. Comment: Aged out per Patient educated on the benefits of colorectal cancer screening/surveillance and the risk if screening/surveillance is not completed. Level of Understanding: Good Suicide Screen: C-SSRS Screening [place]-Suicide Severity Rating Scale (C-SSRS Screener) 1. Over the past month, have you wished you were or wished you could go to sleep and not wake up? No 2. Over the past month, have you had any actual thoughts of killing yourself? No 3. Over the past month, have you been thinking about how you might do this? Response not required due to responses to other questions. 4. Over the past month, have you had these thoughts and had some intention of acting on them? Response not required due to responses to other questions. 5. Over the past month, have you started to work out or worked out the details of how to kill yourself? Response not required due to responses to other questions. 6. If yes, at any time in the past month did you intend to carry out this plan? Response not required due to responses to other questions. 7. In your lifetime, have you ever done anything, started to do anything, or prepared to do anything to end your life (for example, collected pills, obtained a gun, gave away valuables, went to the roof but didn't jump)? No 8. If YES, was this within the past 3 months? Response not required due to responses to other questions. PAVE Foot Check: A complete foot check was completed at this encounter. VISUAL INSPECTION: Includes inspection for skin breaks, deformity, erythema, trauma, pallor on elevation, dependent rubor, nail deformities, extensive callus and pitting edema. Visual exam results: Abnormal Observations: Bunions left foot PEDAL PULSES: Includes palpation of dorsalis and posterior tibial pulses and signs/symptoms of vascular compromise like pain, pallor, parasthesia or paralysis. Present (even if diminished) SENSORY CHECK: Includes 10 gram Monofilament ([place]-Joe) test of sensation. Intact (Greater than or equal to 80% of sites checked) Abnormal (Less than 80% of sites checked): Abnormal (decreased or absent sensation to monofilament): Comment: Whole foot HIGH-RISK: HIGH RISK INFORMATION PROVIDED: 1. Advised patient that extra depth footwear with soft molded inserts and braces may be required. 2. Advised patient not to walk barefoot. 3. Explained the importance of daily foot checks. 4. Stressed the importance of daily foot hygiene, including bathing, complete drying and thorough inspection for changes. The patient verbalized understanding and was offered a detailed handout on diabetic foot care. Patient being seen by an outside home mortgage disclosure act specialist /renzo/ Inna Stauffer DNP, PREPRESS PROOFER, VENTILATOR SPECIALIST-C Primary Care Nurse Practitioner Signed: 10/10/2023 09:07 11/04/2023 ADDENDUM STATUS: COMPLETED Will mail result letter to patient. VA pain management consult placed. 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 Exam Date/Time 10/29/2023 14:01 Procedure Name SHOULDER,LEFT,2 OR MORE VIEWS Reason for Study Left shoulder pain Impression Mild glenohumeral and acromioclavicular osteoarthritis. /renzo/ Inna Stauffer DNP, PREPRESS PROOFER, VENTILATOR SPECIALIST-C Primary Care Nurse Practitioner Signed: 11/04/2023 15:58 INNA STAUFFER Yehuda EZRA [facility] Nov 04, 2023 03:58 PM PHYSICIAN LETTERS: LOCAL TITLE: TEST RESULT GENERAL LETTER ST STANDARD TITLE: PHYSICIAN LETTERS DATE OF NOTE: NOV 04, 2023@15:58 ENTRY DATE: NOV 04, 2023@15:58:24 AUTHOR: INNA STAUFFER EXP COSIGNER: URGENCY: STATUS: COMPLETED [facility] [address] [place] [address] NOV 04, 2023 JESSE HUNTER [address] [place], [place] [address] Dear Jesse Hunter, I would like to update you on your recent test results. 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 Exam Date/Time 10/29/2023 14:01 Procedure Name SHOULDER,LEFT,2 OR MORE VIEWS Reason for Study Left shoulder pain Impression Mild glenohumeral and acromioclavicular osteoarthritis. PLAN VA pain management consult has been placed. If accepted, you should be contacted soon to schedule this. If you have any questions please call your rn case manager hospice. I look forward to seeing you at your next clinic appointment. Thank you for choosing the [facility] for your healthcare. FUTURE APPOINTMENTS: 11/07/2023 09:30 LG-GEN SURG II CLINIC 11/18/2023 10:30 LG-DENTAL DMD4 12/02/2023 12:00 LG-DENTAL DMD4 10/13/2024 13:30 LG-ST CLR PACT 3 PCP Sincerely, Inna Stauffer DNP, APRN, VENTILATOR SPECIALIST-C Primary Care Nurse Practitioner JESSE HUNTER SHELBY R [facility] October 10, 2023 11:41 AM ADDENDUM: LOCAL TITLE: Addendum STANDARD TITLE: ADDENDUM DATE OF NOTE: OCTOBER 10, 2023@11:41:11 ENTRY DATE: OCTOBER 10, 2023@11:41:11 AUTHOR: INNA STAUFFER EXP COSIGNER: URGENCY: STATUS: COMPLETED RNCM please arrange travel (accompanied by veterans ) for upcoming appointments. Thank you! /renzo/ Inna Stauffer DNP, APRN, ATUL-C Primary Care Nurse Practitioner Signed: 10/10/2023 11:42 Receipt Acknowledged By: 10/13/2023 16:08 /renzo/ GLADYS PETIT RN BSN REGISTERED NURSE --- Original Document --- 10/08/23 BENEFICIARY TRAVEL (BT): BENEFICIARY TRAVEL COMMON CARRIER: This request is subject to Beneficiary Travel eligibility requirements and administrative approval. *[place] can safely be transported or transfer in and out of a private vehicle, taxi, bus or other common carrier (public transportation). *Or does not need to be on a stretcher during transport. *Or does not require restraints during transport. *Or [place] does not require direct supervision during transport. *Or does not require acute medical care during transport. [place] indicates they have no access to a privately owned vehicle. Suggested medically appropriate forms of transportation: Taxi/Hired Car Bus Transit System Type of care being provided: Outpatient appointment Inpatient Admission/Discharge Authorized non-VA care Outpatient appointment Authorized non-VA care Inpatient Admission/Discharge Date travel is to commence: September measurement superintendent time (if needed): Estimated time frame [place] will require transportation: 1 Year From: [place]'s Residence: [address] [place] [address] [place] [address] To: (Facility Name): [facility] City/State: [place] Does the [place] have a certified financial planner or need the assistance of an attendant? Yes Does the [place] travel with a service animal? No /renzo/ Inna Stauffer DNP, PREPRESS PROOFER, VENTILATOR SPECIALIST-C Primary Care Nurse Practitioner Signed: 10/10/2023 09:[address] [facility] October 08, 2023 01:49 PM ADMINISTRATIVE NOT E: LOCAL TITLE: BENEFICIARY TRAVEL (BT) STANDARD TITLE: ADMINISTRATIVE NOTE DATE OF NOTE: OCTOBER 08, 2023@13:49 ENTRY DATE: OCTOBER 08, 2023@13:49:56 AUTHOR: INNA STAUFFER EXP COSIGNER: URGENCY: STATUS: COMPLETED BENEFICIARY TRAVEL (BT) Has ADDENDA BENEFICIARY TRAVEL COMMON CARRIER: This request is subject to Beneficiary Travel eligibility requirements and administrative approval. *[place] can safely be transported or transfer in and out of a private vehicle, taxi, bus or other common carrier (public transportation). *Or [place] does not need to be on a stretcher during transport. *Or does not require restraints during transport. *Or [place] does not require direct supervision during transport. *Or [place] does not require acute medical care during transport. [place] indicates they have no access to a privately owned vehicle. Suggested medically appropriate forms of transportation: Taxi/Hired Car Bus Transit System Type of care being provided: Outpatient appointment Inpatient Admission/Discharge Authorized non-VA care Outpatient appointment Authorized non-VA care Inpatient Admission/Discharge Date travel is to commence: September measurement superintendent time (if needed): Estimated time frame will require transportation: 1 Year From: 's Residence: [address] [place] [address] [place] [address] To: (Facility Name): [facility] City/State: [place] Does the [place] have a certified financial planner or need the assistance of an attendant? Yes Does the travel with a service animal? No /renzo/ Inna Stauffer DNP, YESSI, ATUL-C Primary Care Nurse Practitioner Signed: 10/10/2023 09:08 10/10/2023 ADDENDUM STATUS: COMPLETED RNCM please arrange travel (accompanied by veterans ) for upcoming appointments. Thank you! /renzo/ Inna Stauffer DNP, APRN, ATUL-Abdiel Primary Care Nurse Practitioner Signed: 10/10/2023 11:42 Receipt Acknowledged By: 10/13/2023 16:08 /renzo/ GLADYS PETIT RN BSN REGISTERED NURSE 10/13/2023 ADDENDUM STATUS: COMPLETED RN placed travel request for the following appts. 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 If none, indicate none below. Left bunion. ASSESSMENT: Foot Risk Score Level 2 MODERATE RISK Decreased sensation and circulation Foot deformity No ulceration or history of amputation Description of foot deformity or infection: None. /renzo/ Inna Stauffer DNP, YESSI, VENTILATOR SPECIALIST-C Primary Care Nurse Practitioner Signed: 10/10/2023 09:[address] [facility] October 08, 2023 10:35 AM NURSING NOTE: LOCAL TITLE: V15 PACT FACE TO FACE NOTE ST STANDARD TITLE: NURSING NOTE DATE OF NOTE: OCTOBER 08, 2023@10:35 ENTRY DATE: OCTOBER 08, 2023@10:35:28 AUTHOR: GLORIA LEVY COSIGNER: URGENCY: STATUS: COMPLETED Provider Visit: Patient Identifiers : Full Name Date of Reason for visit: Other: Patient states he is here due to a sore on his left foot/want compression socks/left shoulder and back pain/bump on back of head. Mode of Arrival: Assistive Device: walker Allergy Review: PENICILLIN, [facility], REGLAN Allergy list reviewed and remains current. Recent Vital Signs: Temperature: 98.3 F [36.8 C] (10/08/2023 10:23) Pulse: 96 (10/08/2023 10:23) Respiration: 18 (10/08/2023 10:23) B/P: 137/82 (10/08/2023 10:23) Pain: 8 (10/08/2023 10:23) Wt: 176.8 lb [80.20 kg] (10/08/2023 10:23) Ht: 74 in [188.0 cm] (10/03/2022 10:41) BMI: 22.7 POX: 100% (10/08/2023 10:23) Would you like to discuss any personal problem, family problem, alcohol use, drug use, or a mental or emotional illness? No [facility] please select appointment type: OK Video Connect (VVC) - Are you registered for [facility]? Yes - done Contact provided Primary Care phone number and encouraged to call if any questions or concerns. Review that after hours nurse line [phone] and emergency room are available 03/12 for patient use. Contact verbalized good understanding. Sexual Orientation: The patient thinks of their sexual orientation as: Straight or Heterosexual Alcohol Use Screen (AUDIT-C): Alcohol Screen: SCREEN FOR ALCOHOL (AUDIT-C) An alcohol screening test (AUDIT-C) was negative (score=0). 1. How often did you have a drink containing alcohol in the past year? Consider a drink to be a 12 ounce can or bottle of regular beer, 8 ounces of malt liquor, a 5 ounce glass of table wine, or a 1.5 ounce shot of liquor (like scotch, gin, or vodka). Never 2. How many drinks containing alcohol did you have on a typical day when you were drinking in the past year? Response not required due to responses to other questions. 3. How often did you have six or more drinks on one occasion in the past year? Response not required due to responses to other questions. Homelessness/Food Insecurity Screen: In the past 2 months, have you been living in stable housing that you own, rent, or stay in as part of a household? Yes - Living in stable housing. Are you worried or concerned that in the next 2 months you may NOT have stable housing that you own, rent, or stay in as part of a household? No - Not worried about housing near future The [place] reports the following: Within the past 12 months, you worried whether your food would run out before you got money to buy more. Never true Within the past 12 months, the food you bought just didn't last and you didn't have money to get more. Never true PTSD Screening: PC-PTSD-5 A PTSD screening test (PC-PTSD-5) was negative (score=0). IN THE PAST MONTH, have you ever had any experience that was so frightening, horrible or traumatic. For example: A serious accident or fire a physical or sexual assault or abuse An earthquake or flood A war Seeing someone be killed or seriously injured Having a loved one through homicide or suicide 1. Have you ever experienced this kind of event? NO 2. Had nightmares about the event(s) or thought about the event(s) when you did not want to? Response not required due to responses to other questions. 3. Tried hard not to think about the event(s) or went out of your way to avoid situations that reminded you of the event(s)? Response not required due to responses to other questions. 4. Been constantly on guard, watchful, or easily startled? Response not required due to responses to other questions. 5. [place] numb or detached from people, activities, or your surroundings? Response not required due to responses to other questions. 6. [place] guilty or unable to stop blaming yourself or others for the event(s) or any problems the event(s) may have caused? Response not required due to responses to other questions. /renzo/ GLORIA LEVY LPN LICENSED PRACITCAL NURSE Signed: 10/08/2023 10:39 GLORIA LEVY [facility] October 08, 2023 10:27 AM PRIMARY CARE NOTE: LOCAL TITLE: PRIMARY CARE PROVIDER ESTABLISHED VISIT [facility] STANDARD TITLE: PRIMARY CARE NOTE DATE OF NOTE: OCTOBER 08, 2023@10:27 ENTRY DATE: OCTOBER 08, 2023@10:27:39 AUTHOR: INNA STAUFFER COSIGNER: URGENCY: STATUS: COMPLETED PRIMARY CARE PROVIDER ESTABLISHED VISIT [facility] Has ADDENDA REASON FOR VISIT/CHIEF COMPLAINT: Evaluation and management of chronic medical conditions/ My scheduled visit HPI: Patient is a 73 year old BLACK OR MALE who presents to the clinic for evaluation and management of chronic medical conditions. Patient denies any recent ED visits or hospitalizations. Patient goes by Jesse. Patient is accompanied by his caregiver whom he states is acceptable to discuss his healthcare with. Patient requesting beneficiary travel consult with his being able to attend with him, this consult was placed. Private providers: -Patients primary care is managed in the private sector. -Private PCP previously Dr. Shemar Hassan, reports obtained a new PCP, patient unsure of name. -Private rheumatology previously Dr. Betzy Montana, reports obtained a new diplomatic courier, patient unsure of name. -Private cardiology Dr. Hesham Luque and Dr. Wyatt Ang. -Private NSURG previously Dr. Maldonado, provider recently changed (patient unsure of name). -Private podiatry Dr. Noriega. -Private optometry. #Atrial fibrillation: -Medication: Plavix, Eliquis and Sotalol. Denies s/s of bleeding with anticoagulation. -Had watchman placed 03/04/22. #DM 2/peripheral neuropathy: -A1C: <7 per patient. Obtains labs in private sector. -Medications: Metformin and Insulin Aspart sliding scale. -Pregabalin for neuropathy. -Reports compliance to medication regimen. -Eye exam: per private optometry. -Foot exam: Per private podiatry. -Micral: Per private provider. -Statin: Yes. -ACEI: Declines. -Denies recent hypo/hyperglycemia episodes. -Patient is prescribed Lyrica with relief for neuropathy. -Patient is requesting diabetic shoes and socks. Patient is a size 13 shoe and is requesting black socks. #HTN: -Medications: Amlodipine. -Reports compliance to medication regimen. -Reports having blood pressure machine at home. -Blood pressure readings at home: <130/80. -Denies CP, SOB, heart palpitations, headaches, blurred vision, dizziness/lightheadedness. #HLD: -Medication: Atorvastatin. -Reports compliance with medication regimen. -Denies any new onset of myalgias. #GERD: -EGD dilatation 02/2022. -Medication: Pantoprazole and PANCRELIPASE. -Reports compliance with medication regimen. -Denies concerns today. #LUTS/BPH: -Medications: Finasteride, BETHANECHOL CHLORIDE and TAMSULOSIN. -Has size large depends. -Denies frequency, hesitancy, urgency, burning with urination or hematuria. #Low back pain: -Chronic. -Medication: Hydrocodone/acetaminophen. -Has trialed Lidocaine and various creams without relief. -Has completed PT and chiropractor historically without relief. -Has back brace at home, uses PRN. -Patient denies having a lumbar x-ray within the last 6 months. -Denies bowel or bladder incontinence and saddle anesthesia. -Patient requesting pain management consult. #RA: -Stable, denies concerns today. #Chronic bilateral knee pain: -Secondary to knee replacement (4 times) and s/p septic left knee. -Completed PT 08/2022. -Has bilateral knee braces. -Denies pain in the clinic today. -Denies recent injury. #Hx of CVA/seizure activity: -Stable, denies concerns today. -Denies recent seizure activity. Reports last seizure 05/07/22. -Medication: Levetiracetam. -Has residual left leg weakness and facial droop. -Evaluated by neurologist and NSURG historically. #Fall: -Patient denies any recent falls. -Patient has had a OT safety evaluation with grab bars placed in the home historically. -Patient using walker today. Patient requesting a seated walker, this consult was placed. -Patient attends respite through [facility]. #Left bunion: -Chronic in nature. -Patient reports established with private podiatry that manages this. #Cyst located to posterior lower head: -Patient reports this appeared approx. 1 week ago. Reports he noticed some discharge and the size of the cyst was decreased. This is the size of approx. a pea at this time. Patient agreeable to [place] surgery consult to consider removal. #Left shoulder pain: -Onset: 2022, exacerbated 1 week ago. -Duration: Intermittent. -Character: Ache. -Aggravating factors: Standing up. -Relieving factors: Rest. -Medications: Hydrocodone/acetaminophen. -Treatments: Participated in PT in 2022 for this. -Injury: Denies. -Imaging: Has obtained historically >1 year ago. -Patient requesting pain management consult. SOURCE(S) OF HISTORY: Patient PAST MEDICAL HISTORY: 1) DIAPHRAGMATIC HERNIA 2) OSTEOARTHROS NOS-UNSPEC 3) PEPTIC ULCER NOS 4) Knee pain (SNOMED CT [id number]) 5) Type 2 diabetes mellitus 6) Benign essential hypertension 7) Rheumatoid arthritis 8) Cerebral infarction 9) Seizure 10) Atrial fibrillation 11) Gastroesophageal reflux disease 12) Peripheral nerve disease 13) Hyperlipidemia 14) Benign prostatic hyperplasia 15) Low back pain SOCIAL HISTORY: Tobacco: Denies. Alcohol: Denies. Illicit: Denies. ALLERGIES: PENICILLIN, [facility], REGLAN ALLERGY REVIEW: Allergy list reviewed and remains current. MEDICATIONS: Active and Recently Outpatient Medications (excluding Supplies): Active Outpatient Medications Status 1) ACCU-CHEK GUIDE (GLUCOSE) TEST STRIP USE 1 STRIP FOR ACTIVE BLOOD TEST FOUR TIMES A DAY FOR BLOOD SUGAR MONITORING *INTENSIVE INSULIN THERAPY- UP TO 4 TIMES DAILY Apr Active Non-VA Medications Status 1) Non-VA AMLODIPINE BESYLATE 2.5MG TAB 2.5MG BY MOUTH ACTIVE ONCE A DAY 2) Non-VA APIXABAN 5MG TAB 5MG BY MOUTH TWICE A DAY ACTIVE 3) Non-VA ATORVASTATIN CALCIUM 40MG TAB 20MG BY MOUTH ACTIVE EVERY EVENING 4) Non-VA BETHANECHOL CHLORIDE 25MG TAB 50MG BY MOUTH ACTIVE THREE TIMES A DAY 5) Non-VA CLOPIDOGREL BISULFATE 75MG TAB 75MG BY MOUTH ACTIVE ONCE A DAY 6) Non-VA FINASTERIDE 5MG TAB 5MG BY MOUTH ONCE A DAY ACTIVE 7) Non-VA HYDROCODONE 7.5/ACETAMINOPHEN 325MG TAB 1 ACTIVE TABLET BY MOUTH EVERY 6 HOURS NEEDED 8) Non-VA HYDROXYCHLOROQUINE SULFATE 200MG TAB 100MG BY ACTIVE MOUTH TWICE A DAY 9) Non-VA INSULIN,ASPART,HUMAN 100 UNIT/ML INJ 2 UNITS ACTIVE UNDER THE SKIN THREE TIMES A DAY BEFORE MEALS 10) Non-VA LATANOPROST 0.005% OPH SOLN 1 DROP BOTH EYES ACTIVE EVERY EVENING 11) Non-VA LEVETIRACETAM 500MG TAB 1000MG BY MOUTH TWICE ACTIVE A DAY 12) Non-VA MAGNESIUM OXIDE 400MG TAB 400MG BY MOUTH ONCE ACTIVE A DAY 13) Non-VA METFORMIN 1000/SAXAGLIPTIN 2.5MG SA TAB 2 ACTIVE TABLETS BY MOUTH ONCE A DAY 14) Non-VA PANCRELIPASE (EQV-ZENPEP) 5,000 EC CAP 3 ACTIVE CAPSULES BY MOUTH THREE TIMES A DAY BEFORE MEALS 15) Non-VA PANTOPRAZOLE NA 40MG EC TAB 40MG BY MOUTH ACTIVE EVERY MORNING 16) Non-VA PREGABALIN 75MG ORAL CAP 75MG BY MOUTH AT ACTIVE BEDTIME 17) Non-VA SOTALOL TAB BY MOUTH ACTIVE 18) Non-VA TAMSULOSIN HCL 0.4MG CAP 0.4MG BY MOUTH EVERY ACTIVE EVENING 19 Total Medications REVIEW OF SYSTEMS: Constitutional: Denies weight loss, fever, chills. Ears, Nose, Mouth, Throat: Denies nasal drainage or sore throat. Denies dizziness. Denies hearing loss. Endocrinology: Denies heat or cold intolerance, polydipsia, polyuria, or polyphagia. Cardiovascular: Denies chest pain, palpitations, or dizziness. Respiratory: Denies cough or shortness of breath. ABD/GI: Denies abdominal pain, nausea, vomiting, constipation, diarrhea or incontinence. Musculoskeletal/Extremities: Denies edema. Denies pain. 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 Psychology: Denies insomnia or SI/HI. Denies anxiety or depression. Neurology: Denies WEAVER, tremors, neuropathy, or seizures. Skin: Denies rashes, skin lesions. PHYSICAL EXAMINATION: VITALS (most recent, as listed in the electronic record): Temperature: 98.3 F [36.8 C] (10/08/2023 10:23) BP: 137/82 (10/08/2023 10:23) Pulse: 96 (10/08/2023 10:23) Resp: 18 (10/08/2023 10:23) PulsOx: 100% (10/08/2023 10:23) Pain: 8 (10/08/2023 10:23) Weight: Measurement DT WEIGHT LB(KG)[BMI] 10/08/2023 10:23 176.8(80.20)[23] HEENT: EOMI, PERRLA, Moist mucous membranes. No Scleral icterus or cervical lymphadenopathy. Lungs: Clear to auscultation bilaterally. No accessory muscle use. Cardiovascular: Regular rate and rhythm. No murmur. No JVD. Abdomen: Soft, nontender and non-distended. No palpable masses. Positive bowel sounds in all four quadrants. Extremities: No edema. Nontender. Full ROM to all joints. 2+ pedal pulses bilaterally. Gait steady. : Deferred. Neurologic: No focal neurological deficits. Psychiatric: Appropriate mood and affect. Skin: Skin warm, dry and intact. No lesions or rashes noted. Health maintenance: -Declines immunizations today. Immunization Series Date Facility Reaction COVID-19 (P[facility]), MRNA, LNP-S, * 1 03/06/2022 [facility] COVID-19 (P[facility]), MRNA, LNP-S, * 3 01/12/2021 [facility] COVID-19 ([employer] [place]), MRNA, LNP-S, * 2 08/05/2020 [facility] COVID-19 ([facility]), MRNA, LNP-S, * 1 07/08/2020 [facility] COVID-19 ([facility]), MRNA, LNP-S, * 4 11/17/2021 [facility] HEP A-HEP B 1 01/22/2020 [facility] INFLUENZA VACCINE, QUADRIVALENT,* 5 03/06/2022 [facility] PNEUMOCOCCAL CONJUGATE PCV 13 05/14/2016 No Site <C> PNEUMOCOCCAL CONJUGATE PCV 13 1 03/20/2016 [facility] PNEUMOCOCCAL POLYSACCHARIDE PPV23 02/18/2017 No Site TDAP 1 01/22/2020 [facility] TDAP 1 11/29/2016 [facility] TDAP No Site ZOST[facility] RECOMBINANT 2 10/03/2022 [facility] RECOMBINANT 07/06/2022 [facility]* Colonoscopy: Aged out per . Evaluation and management per private PCP. PSA: Obtains in private sector. Eye exam: Eye clinic contact information given. Obtains labs in the private sector with private providers. ASSESSMENT/PLAN: Annual visit: -Routine labs reviewed. -Preventative health screenings reviewed. -Recommend regular eye exams. -Discussed Fall Safety. -Continue wearing mask in public and wash hands frequently. -Immunizations reviewed. -Evaluation and management per private PCP. Atrial fibrillation: -Controlled. -Continue medication regimen. -Lifestyle modifications reviewed. -Evaluation and management per private cardiology. DM 2: -Continue to check BG as recommended. -Continue medication regimen. -Reviewed lifestyle modifications. -Educated to check feet daily and to have an eye exam yearly. -Foot exam completed today. -Diabetic shoes and socks ordered. -Evaluation and management per private podiatry. -Evaluation and management per private PCP. HTN: -Continue prescribed regimen. -Instructed patient to check BP daily 1-2 hours after medications. -Discussed importance of regular exercise and/or physical activity in the control of blood pressure. -Discussed low sodium diet w/ <2 g daily. -Discussed avoidance of caffeine. -Discussed appropriate sleep hygiene and quality with >6 hours of uninterrupted sleep. -Self-monitor BP at home and report readings consistently above goal of <130/80. -Evaluation and management per private PCP. HLD: -Continue medication regimen. -Reviewed lifestyle modifications including participating in a low fat/low cholesterol diet. -Dietitian contact information given. -Evaluation and management per private PCP. GERD: -Continue medication regimen. -Reviewed lifestyle modifications. -Educated to avoid triggering foods such as alcohol, caffeinated drinks, chocolate, coffee, spicy foods, citrus foods, tomatoes etc. -Evaluation and management per private PCP. LUTS/BPH: -Continue medication regimen. -Educated to limit fluid intake to frequent smaller amounts and decrease after evening meal, urinate frequently during the day, reduce or avoid caffeine and alcohol, and to avoid medications that can cause urinary retention or frequency when possible. -Evaluation and management per private PCP. Low back pain: -Continue medication regimen. -Whole health contact information given. -Pain management consult placed. -Lumbar x-ray ordered, once obtained plan to consult [facility] pain [facility]. -Evaluation and management per private PCP. RA: -Stable. -Evaluation and management per private rheumatology. Chronic bilateral knee pain: -Controlled. -Evaluation and management per private PCP. Hx of CVA/seizure activity: -Stable. -Evaluation and management per private NSURG. Fall: -Fall safety reviewed. -Evaluation and management per private PCP. Left bunion: -Evaluation and management per private podiatry. Cyst located to posterior lower head: -[facility] general surgery consult placed. Left shoulder pain: -Continue medication regimen. -Whole health contact information given. -Pain management consult placed. -Left shoulder x-ray ordered, once obtained plan to consult [facility] pain management. -Evaluation and management per private PCP. RETURN TO CLINIC: 1 year or earlier as needed. SUMMARY STATEMENT: Plan of care has been discussed with including expected therapeutic benefits and potential side effects of prescribed medication and treatments. [place] verbalizes understanding and is in agreement with the plan of care. Patient was instructed to keep all scheduled appointments and contact heel former for any additional problems. 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 Handwritten corrections, additions and/or deletions were made to the list, as appropriate. Corrected Outpatient Medication List was provided to the patient/caregiver. Assess Statin Use - Lipids (CVD/DM): The patient is still taking the NON-VA statin medication as documented. Tobacco Use Screening: The patient has never used tobacco. Avg Risk Colorectal Cancer Screen: AVERAGE RISK colorectal cancer screening is due based on information available to this clinical reminder Patient declined screening/surveillance. Comment: Aged out per Patient educated on the benefits of colorectal cancer screening/surveillance and the risk if screening/surveillance is not completed. Level of Understanding: Good Suicide Screen: C-SSRS Screening [place]-Suicide Severity Rating Scale (C-SSRS Screener) 1. Over the past month, have you wished you were or wished you could go to sleep and not wake up? No 2. Over the past month, have you had any actual thoughts of killing yourself? No 3. Over the past month, have you been thinking about how you might do this? Response not required due to responses to other questions. 4. Over the past month, have you had these thoughts and had some intention of acting on them? Response not required due to responses to other questions. 5. Over the past month, have you started to work out or worked out the details of how to kill yourself? Response not required due to responses to other questions. 6. If yes, at any time in the past month did you intend to carry out this plan? Response not required due to responses to other questions. 7. In your lifetime, have you ever done anything, started to do anything, or prepared to do anything to end your life (for example, collected pills, obtained a gun, gave away valuables, went to the roof but didn't jump)? No 8. If YES, was this within the past 3 months? Response not required due to responses to other questions. PAVE Foot Check: A complete foot check was completed at this encounter. VISUAL INSPECTION: Includes inspection for skin breaks, deformity, erythema, trauma, pallor on elevation, dependent rubor, nail deformities, extensive callus and pitting edema. Visual exam results: Abnormal Observations: Bunions left foot PEDAL PULSES: Includes palpation of dorsalis and posterior tibial pulses and signs/symptoms of vascular compromise like pain, pallor, parasthesia or paralysis. Present (even if diminished) SENSORY CHECK: Includes 10 gram Monofilament ([place]) test of sensation. Intact (Greater than or equal to 80% of sites checked) Abnormal (Less than 80% of sites checked): Abnormal (decreased or absent sensation to monofilament): Comment: Whole foot HIGH-RISK: HIGH RISK INFORMATION PROVIDED: 1. Advised patient that extra depth footwear with soft molded inserts and braces may be required. 2. Advised patient not to walk barefoot. 3. Explained the importance of daily foot checks. 4. Stressed the importance of daily foot hygiene, including bathing, complete drying and thorough inspection for changes. The patient verbalized understanding and was offered a detailed handout on diabetic foot care. Patient being seen by an outside home mortgage disclosure act specialist /renzo/ Inna Stauffer DNP, YESSI, VENTILATOR SPECIALIST-C Primary Care Nurse Practitioner Signed: 10/10/2023 09:07 11/04/2023 ADDENDUM STATUS: COMPLETED Will mail result letter to patient. [facility] pain management consult placed. 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 Exam Date/Time 10/29/2023 14:01 Procedure Name SHOULDER,LEFT,2 OR MORE VIEWS Reason for Study Left shoulder pain Impression Mild glenohumeral and acromioclavicular osteoarthritis. /mercy Stauffer DNP, YESSI, VENTILATOR SPECIALIST-C Primary Care Nurse Practitioner Signed: 11/04/2023 15:58 11/13/2023 ADDENDUM STATUS: COMPLETED RNCM please notify patient that the [facility] pain management consult was cancelled with the below comment: no recent mri of ls spine. has patient seen other providers and trailed alternatives in regards to low back pain has conservative measures trialed for shoulder pain? please address above and not improved reconsult chronic pain clinic. -RNCM please complete MRI questionnaire for for this provider to place a lumbar MRI. -RNCM please see if the is agreeable to [facility] OT consult for the shoulder pain. Thank you! /renzo/ Inna Stauffer DNP, PREPRESS PROOFER, VENTILATOR SPECIALIST-C Primary Care Nurse Practitioner Signed: 11/13/2023 20:25 Receipt Acknowledged By: * AWAITING SIGNATURE * GLADYS PETIT,INNA ROBERSON [facility]
--- OUTSIDE RECORDS SUMMARY | 2024-10-02 09:01 | XMS_ITS | Data Portability ---
Author Organization [facility], Main Office Address [address] [place] [address] Assessment No assessment recorded. Plan of Treatment Reminders Order Date Submit Date Provider Last Modified By Organization Details Last Modified Time Details Appointments None recorded. Lab hemoglobin A1C, fingerstic k 2024 025 [email or web address] 00 [facility] Danielito, [address] [place] [address], [place], [address], 11:57:39 lipid panel, serum [address] (Lab), [address] [place], [address], 12:55:06 TSH, serum or plasma [address] (Lab), [address] [place], [address], 12:55:06 CBC w/ auto diff [address] (Lab), [address] [place], [address], 5 12:55:06 CK (creatine kinase), total, serum [address] (Lab), [address] [place], [address], 12:55:06 CMP, serum or plasma [address] (Lab), [address] [place], [address], 12:55:06 PSA, serum or plasma [address] (Lab), [address] [place], [address], 12:55:05 vitamin D3, 25-hydroxy , serum [address] (Lab), [address] [place], [address], 12:55:06 vitamin B12 + folate, serum or blood [address] (Lab), [address] [place], [address], 12:55:07 drug screen, urine 2024 025 [facility] (Lab), [address] [place], [address], 12:01:00 Referral pain management referral - Was seeing a pain management doctor in [place] . But needs someone close by . Please eval and treat . I filled hydrocodon e 7.5/325 , 30 tabs today . Thank you . Had a lumbar fusion on one side 2 to 3 yeares ago . Please call patient to schedule an appointmen t. Thank you 2024 025 DERRICKSandy Sandhu, [facility], [place], [address], 5 19:55:17 urologist referral - Wears depends ., Has BPH , taking 3 flomax daily . Please eval and treat. Please call patient to schedule an appointmen t. Thank you 2024 025 [place] [facility], [facility] [address], [place], [address], 14:16:40 Procedures None recorded. Surgeries None recorded. Imaging None recorded. Medication Orders hydrocodon e 7.5 mg-acetami nophen 325 mg tablet 2024 025 [facility] #74899, [address] [facility], [place], [place], [id number], 11:40:27 ezetimibe 10 mg tablet 2024 025 [facility] #05732, [address] [facility], [place], [place], [id number], 11:46:07 ciprofloxa mee 500 mg tablet 2024 025 [email or web address] [facility] #08402, [address] [facility], [place], [place], [id number], 11:15:41 cyanocobal thorne (vit B-12) 1,000 mcg sublingual tablet 2024 [facility] #87943, [address] [facility], [place], [place], [id number], 12:39:50 hydrocodon e 7.5 mg-acetami nophen 325 mg tablet 2024 025 [facility] #64871, [address] [facility], [place], [place], [id number], 5 11:59:59 albuterol sulfate HFA 90 mcg/actuat ion aerosol inhaler 2023 024 [email or web address] 00 [facility] #02595, [address] [facility], [place], [place], [id number], 09:44:27 Patient TargetsNo targets recorded. Patient Instructions Encounter Date Encounter Id Patient Instructions Last Modified By Organization Details Last Modified Time 05/08/2024 [id number] recheck BP at home Not available 05/18/2024 09:34:19 08/24/2024 [id number] soak fingers in epsom salts 10 min daily , thoroughly rinse , thoroughly dry . [email or web address] Not available 09/05/2024 16:38:06 Reason for Referral Pain Management Referral for Chronic low back pain Was seeing a pain management doctor in [place] . But needs someone close by . Please eval and treat . I filled hydrocodone 7.5/325 , 30 tabs today . Thank you . Had a lumbar fusion on one side 2 to 3 yeares ago . Please call patient to schedule an appointment. Thank you Referring Physician: [facility], Encounter Date: 08/04/2024 Urologist Referral for Urina ry incontinence Wears depends ., Has BPH , taking 3 flomax daily . Please eval and treat. Please call patient to schedule an appointment. Thank you Referring Physician: Cameron Harkins [facility], Encounter Date: 08/04/2024 Problems Name Problem SNOMED Code Status Onset Date Resolution Date Notes Provider Name and Address Organization Details Recorded Time Upper respirato ry infection 60785285 Active 2023 [address] [facility], [address], [place], [address], [employer] 4 10:37:24 Essential hypertens ion 98382392 Active 2023 [address] [address] [employer] [employer], [address], [place], [address], [employer] 4 10:41:49 Atrial fibrillat ion 96469563 Active 2023 paroxysma l atrial fibrillat ion [facility] [address] [employer], [address], [place], [address], [employer] 4 11:05:10 Hyperlipi demia 67454417 Active [address], [address], [place], [address], [employer] [facility] 4 09:48:24 Neurogeni c urinary bladder 077683312 Active [address]23 [address], [address], [place], [address], [employer] [place] [facility] [employer] [facility] 4 09:50:37 Rheumatoi d arthritis 61516468 Active [address]23 [address], [address], [place], [address], [employer] [facility] [employer] 4 09:53:13 Benign prostatic hyperplas ia with outflow obstructi on 337978084 Active 2023 urinary frequency [facility] [address], [address], [place], [address], [employer] [facility] 4 11:01:53 Type 2 diabetes mellitus 84435465 Active [address]23 [address], [address], [place], [address], [employer] [facility] 4 09:56:14 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 [facility] [address], [address], [place], [address], [employer] [facility] 4 10:58:26 Left hemipares is 133130119 Active [address]23 [address], [address], [place], [address], [employer] [facility] 4 10:58:40 Seizure 37361830 Active [address]23 [address], [address], [place], [address], [employer] [place] [facility] 4 10:58:55 Vascular dementia 815259157 Active 2023 without behaviora l distubanc e , mood disturban ce , or anxiety , unspecifi ed dementia (HCC) [facility] [address], [address], [place], [address], [employer] [facility] [employer] 11:00:43 Parkinson ism 15555933 Active 2023 [address] [employer], [address], [place], [address], [employer] [facility] [employer] [facility] 4 11:02:09 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 Active 2023 [address] [employer], [address], [place], [address], [employer] 11:02:41 Difficult y walking 500580149 Active 2023 [address] [employer], [address], [place], [address], [employer] 11:03:36 Idiopathi c chronic pancreati tis 190578564 Active 2023 [address] [employer], [address], [place], [address], [employer] 11:04:08 Gastroeso phageal reflux disease without esophagit is 151347654 Active 2023 [address] [employer], [address], [place], [address], [employer] 11:05:31 Bilateral osteoarth ritis of knees 442995441343 107 Active 2023 [address] [employer], [address], [place], [address], [employer] [facility] [employer] 11:06:13 Need for personal care assistanc e 067441716498 22277 Active 2023 [address], [address], [place], [address], [place] [facility] 4 11:06:44 Vitamin D below reference range 901615635 Active 2023 [address], [address], [place], [address], [place] [facility] 4 11:09:41 Glaucoma 46956093 Active 2023 [address], [address], [place], [address], [employer] [place] [facility] 4 11:11:21 Raised intraocul ar pressure 535136770 Active 2023 [address], [address], [place], [address], [employer] [place] [facility] 4 11:23:49 Adult health examinati on Active 2024 [address] [address], [address], [place], [address], [employer] [place] [facility] 5 09:33:34 Urinary incontine nce 370062247 Active 2024 [address], [address], [place], [address], [employer] [place] [facility] 5 11:00:25 Screening for malignant neoplasm of prostate Active 2024 [address] [address], [address], [place], [address], [employer] [place] [facility] 5 11:08:27 Chronic low back pain 301665497 Active 2024 had a lumbar fusion 2021 [facility] [address], [address], [place], [address], [place] [facility] 5 11:11:17 Folliculi tis 27110523 Active 2024 [address], [address], [place], [address], [employer] [facility] [employer] [facility] 5 12:34:17 Serum vitamin B12 below reference range 917979920 Active 2024 [address] [address] [facility], [address] [address], [place], [address], [employer] [facility] [employer] [facility] 12:38:35 Anemia 296694621 Active 2024 already constipat ed , will wait before prescribi ng iron pills [facility] [address] [facility], [address], [place], [address], [employer] [facility] [employer] [facility] 12:42:30 History of head injury 405322320 Active 2024 [facility] [address] [facility], [facility] [address], [place], [address], [employer] [facility] [employer] [facility] 11:48:35 Notes:cardiology: ; urology: Dr. Cortez , seesendocrinology for diabetes Problem Notes None recorded. Procedures Surgical History Date Name Laterality Status Provider Name and Address Organization Details Recorded Time total knee replacement completed Silvia Lemon RN [facility] [employer] [facility] 05/08/2024 10:17:31 Back Surgery completed Silvia Lemon RN [facility] [employer] [facility] 05/08/2024 10:17:40 operation on testis completed Silvia Lemon RN [facility] [employer] [facility] 05/08/2024 10:18:05 Imaging Results None recorded. Procedure Notes None recorded. Medical Equipment None Reported. Allergies Allergen ID Allergen Name Allergen Category Reaction Reaction Severity Criticality Documentation Date Start Date Code Code System Note Provider Name and Address Organization Details Recorded Time 72590 Product containin g penicilli n (product) medicatio n Not available Not available Not available 05/08/2024 33092 8001 [place] Lemon RN [facility], [facility] [employer] [facility] 10:16:34 56292 Substance with sulfonami de structure and antibacte rial mechanism of action (substanc e) medicatio n Not available Not available Not available 05/08/2024 25519 8003 [place], RN null, [place] [facility] 4 10:16:40 Medications Name Sig Start Date Stop Date Status Note LastModified by Organization Details LastModified Time latanopro st 0.005 % eye drops INSTILL 1 DROP BOTH EYES EVERY NIGHT AT BEDTIME 09/09 completed Not Available Not Available Not Available atorvasta tin 80 mg tablet Take 1 tablet every day by oral route in the morning for 90 days. 09/09 completed cpk elevated Not Available Not Available Not Available oxybutyni n chloride ER 15 mg tablet,ex tended release 24 hr TAKE 1 TABLET BY MOUTH DAILY active Not Available Not Available No t Available bethanech ol chloride 10 mg tablet TAKE 2 TABLETS BY MOUTH THREE TIMES DAILY active Not Available Not Available No t Available hydrocodo ne 5 mg-acetam inophen 325 mg tablet TAKE 1 TABLET BY MOUTH DAILY FOR 7 DAYS NEEDED 08/04 completed Not Available Not Available Not Available amlodipin e 2.5 mg tablet TAKE 1 TABLET BY MOUTH EVERY DAY IN THE MORNING active Not Available Not Available No t Available clopidogr el 75 mg tablet TAKE 1 TABLET BY MOUTH EVERY DAY IN THE MORNING active Not Available Not Available No t Available ciproflox acin 500 mg tablet TAKE 1 TABLET BY MOUTH EVERY 12 HOURS 09/09 completed Not Available Not Available Not Available tamsulosi n 0.4 mg capsule TAKE 1 CAPSULE BY MOUTH TWICE DAILY active Not Available Not Available No t Available hydrocodo ne 7.5 mg-acetam inophen 325 mg tablet TAKE 1 TABLET BY MOUTH EVERY DAY NEEDED active Not Available Not Available No t Available pantopraz ole 40 mg tablet,de layed release Take 1 tablet every day by oral route before meal(s) for 90 days. active Not Available Not Available No t Available brimonidi ne 0.2 % eye drops INSTILL 1 DROP INTO AFFECTED both EYE(S) BY OPHTHALM IC ROUTE EVERY 12 HOURS 08/04 completed Not Available Not Available Not Available cyanocoba angela (vit B-12) 1,000 mcg sublingua l tablet PLACE 1 TABLET UNDER THE TONGUE TWICE DAILY active Not Available Not Available No t Available hydroxych loroquine 200 mg tablet TAKE 1 TABLET BY MOUTH TWICE DAILY active Not Available Not Available No t Available methylpre dnisolone 4 mg tablets in a dose pack FOLLOW PACKAGE DIRECTIO NS 05/08 completed Not Available Not Available Not Available albuterol sulfate HFA 90 mcg/actua tion aerosol inhaler INHALE 2 PUFFS BY MOUTH EVERY 8 HOURS FOR 10 DAYS NEEDED active Not Available Not Available No t Available finasteri de 5 mg tablet TAKE 1 TABLET BY MOUTH EVERY DAY active Not Available Not Available No t Available ezetimibe 10 mg tablet TAKE 1 TABLET BY MOUTH EVERY DAY IN THE MORNING active Not Available Not Available No t Available nitrofura ntoin monohydra te/macroc rystals 100 mg capsule TAKE 1 CAPSULE BY MOUTH EVERY 12 HOURS 05/08 completed Not Available Not Available Not Available duloxetin e 30 mg capsule,d elayed release TAKE 1 CAPSULE BY MOUTH EVERY DAY 08/04 completed Not Available Not Available Not Available duloxetin e 60 mg capsule,d elayed release TAKE 1 CAPSULE BY MOUTH EVERY DAY active Not Available Not Available No t Available pregabali n 100 mg capsule TAKE 1 CAPSULE BY MOUTH EVERY MORNING AND 2 CAPSULES AT BEDTIME active Not Available Not Available No t Available levetirac etam 1,000 mg tablet TAKE 1 TABLET BY MOUTH EVERY 12 HOURS active Not Available Not Available No t Available FaBB 2.2 mg-25 mg-1 mg tablet TAKE 1 TABLET BY MOUTH EVERY DAY 08/04 completed Not Available Not Available Not Available cholecalc iferol (vitamin D3) 25 mcg (1,000 unit) tablet Take 2 tablets every day by oral route after meal(s) for 90 days. 2023 active Not Available Not Available Not Avai lable brimonidi ne 0.2 %-timolol 0.5 % eye drops 09/09 completed Not Available Not Available Not Available Vitals Date Recorded Body weight Body mass index (BMI) Body height Body temperature Heart rate Oxygen saturation Oxygen saturation in Arterial blood by Pulse oximetry Systolic blood pressure Diastolic blood pressure Provider Name and Address Organization Details Last Updated DateTime 4 46143.3 3 g 21.3 kg/m2 187.96 cm 97.8 [degF] 96 /min 98 % 98 % 130 mm[Hg] 96 mm[Hg] Silvia Lemon RN [place] [employer] [facility] 4 10:19:54 Date Recorded Body height Body mass index (BMI) Body weight Body temperature Heart rate Respiratory rate Oxygen saturation Oxygen saturation in Arterial blood by Pulse oximetry Systolic blood pressure Diastolic blood pressure Provider Name and Address Organization Details Last Updated DateTime 5 187.96 cm 22.2 kg/m2 03296.4 8 g 97.3 [degF] 64 /min 16 /min 99 % 99 % 156 mm[Hg] 84 mm[Hg] Callie Marks RN [facility] [employer] [facility] 5 10:46:48 Date Recorded Body height Body mass index (BMI) Body weight Body temperature Heart rate Oxygen saturation Oxygen saturation in Arterial blood by Pulse oximetry Systolic blood pressure Diastolic blood pressure Provider Name and Address Organization Details Last Updated DateTime 5 187.96 cm 21.6 kg/m2 17588.5 2 g 97 [degF] 93 /min 98 % 98 % 152 mm[Hg] 78 mm[Hg] PATRICIA Muniz [facility] [employer] [facility] 5 12:25:10 Date Recorded Body height Body mass index (BMI) Body weight Body temperature Heart rate Oxygen saturation Oxygen saturation in Arterial blood by Pulse oximetry Systolic blood pressure Diastolic blood pressure Provider Name and Address Organization Details Last Updated DateTime 5 187.96 cm 20.5 kg/m2 72872.7 8 g 98.9 [degF] 92 /min 99 % 99 % 142 mm[Hg] 78 mm[Hg] PATRICIA Muniz [facility] [employer] [facility] 5 11:18:46 Social History None recorded. Functional Status None recorded. Mental Status None recorded. Family History Nothing Reported. Medical History No medical history recorded. Past Encounters Encounter ID Performer Location Encounter Start Date Encounter Closed Date Diagnosis/Indication Diagnosis SNOMED-CT Code Diagnosis ICD10 Code Diagnosis Note [id number] Joshua Coats MD [facility] [address] [address] 05/08/2024 09:55:21 05/08/2024 11:22:03 Upper respiratory infection 58326368 J06.9 Essential hypertension 71982722 I10 Atrial fibrillation 4943 6004 I48.91 Adult [facility] th examination 429264222 Z00.00 [id number] Joshua Coats MD [address] [address] 08/04/2024 10:40:39 08/04/2024 11:50:49 Adult health examination 273449971 Z00.00 Cerebrovas cular accident 760048235 I63.9 Bilateral osteoarthritis of knees 2183771267 83772 M17.0 Hyperlipidemia 25132434 E78.5 Type 2 jarrod betes mellitus 39053188 E11.9 Urinary incontinence 165 800065 R32 Screening for malignant neoplasm of prostate 944798349 Z12.5 Chronic low back pain 27 1448773 M54.50 Vitamin D below reference range 367208751 E55.9 Long-term current use of opiate analgesic drug 6720593142 53931 Z79.891 Benign pro static hyperplasia with outflow obstruction 182613757 N40.1 Gastroesop hageal reflux disease without esophagitis 865744771 K21.9 Rheumatoid arthritis 698 99095 M06.9 Seizure 49854795 R56.9 [id number] Joshua Coats MD [address] [address] 08/07/2024 10:49:41 08/07/2024 12:32:34 [id number] Joshua Coats MD [address] [address] 08/24/2024 12:16:07 08/24/2024 12:49:11 Folliculitis 13815453 L73.9 fingers ,nails Serum lena min B12 below reference range 778145052 R79.89 Atrial fibrillation 4943 6004 I48.91 Cerebrovas cular accident 342036739 I63.9 Left hemiparesis 2212686 00 G81.90 Idiopathic chronic pancreatitis 632817341 K86.1 Rheumatoid arthritis 698 35840 M06.9 Type 2 jarrod betes mellitus 26657444 E11.9 [id number] Joshua Coats MD [address] [address] 09/09/2024 11:03:30 09/09/2024 11:55:23 Chronic low back pain 823500519 M54.50 Hyperlipidemia 40335031 E78.5 Atrial fibrillation 4943 6004 I48.91 Cerebrovas cular accident 907874863 I63.9 Essential hypertension 23399837 I10 Rheumatoid arthritis 698 26827 M06.9 Serum lena min B12 below reference range 586281410 R79.89 Type 2 jarrod betes mellitus 88035800 E11.9 Vitamin D below reference range 123308451 E55.9 Health Concerns Section Related Observation LastModified by Organization Detai ls LastModified Time None Recorded Concern Status LastModified by Organization Details LastModified Time None Recorded Advance Directives Directive None Recorded Payers Encounter Date Sequence Insurance Name Policy Number Policy Hidalgo Covered Member ID Hidalgo Member ID Guarantor Name 05/08/2024 2 [place] [id number] Jesse Hunter [id number] Jesse Hunter 05/08/2024 1 [place] Jesse Hunter [id number] Jesse Hunter 08/04/2024 2 [place] [id number] Jesse Hunter [id number] Jesse Hunter 08/04/2024 1 [place] Jesse Hunter [id number] Jesse Hunter 08/07/2024 2 [place] 33E eJsse Hunter [id number] Jesse Hunter 08/07/2024 1 [place] Jesse Hunter [id number] Jesse Hunter 08/24/2024 2 [place] 33E Jesse Hunter [id number] Jesse Hunter 08/24/2024 1 [place] Jesse Hunter [id number] Jesse Hunter 09/09/2024 2 [place] [id number] Jesse Hunter [id number] Jesse Hunter 09/09/2024 1 [place] Jesse Hunter [id number] Jesse Hunter Notes Date Note Type Note Provider Name and Address Organization Details Recorded Time 05/08/2024 text/html RSV in hosp , ne g for Covid [address] [address], [employer] [facility] [employer], [place], [address], [employer] 07/01/2024 14:56:34 08/04/2024 text/html was seeing a [facility] funmi management doctor in [place] , needs something closer . Had a fusion in lumbar area 2 to 3 years ago , low back on left worse than the right [address] [address], [employer] [facility] [employer], [place], [address], [employer] 08/10/2024 16:50:29 08/24/2024 text/html finger nails , ingrown , , , oozing pus [address] [address], [employer] [facility] [employer], [place], [address], [employer] 09/05/2024 16:39:49 09/09/2024 text/html tongue tastes salty [facility] [address], [employer] [facility] [employer], [place], [address], [employer] 09/14/2024 14:20:47
--- OUTSIDE RECORDS SUMMARY | 2024-10-02 09:02 | XMS_ITS | Encounter Summary ---
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 Name Role Phone EH JOSEPH Primary Care Provider Unavailabl e Insurance Providers: [...] STAND WILLI FAM Jun 03, 2018 [id number] [phone] Abdiel WHITLEY PATIENT ANTHE[place] PREFERRED PROVIDER ORGANIZAT ION (PPO) FEP STAND WILLI FAM Jun 03, 2018 105 [id number] [phone] Abdiel WHITLEY PATIENT AN[place] PREFERRED PROVIDER ORGANIZAT ION (PPO) FEP STAND WILLI FAM Jun 03, 2018 105 [id number] [phone] Abdiel WHITLEY PATIENT [place] PREFERRED PROVIDER ORGANIZAT ION (PPO) FEP STAND WILLI FAM Jun 03, 2018 105 [id number] [phone] Abdiel WHITLEY PATIENT [place] FEP ([id number]) PRESCRIPT ION FEPRX May 20, 1994 [id number] [phone] Abdiel WHITLEY PATIENT MEDICARE (WNR) MEDICARE ([place]) PART A Aug 11, 2014 PART A [id number] [phone] Abdiel WHITLEY PATIENT MEDICARE (WNR) MEDICARE (M) PART B Aug 11, 2014 PART B [id number] Abdiel WHITLEY PATIENT Selected Encounter This section includes the information on record at [place] for the Encounter. Date/Time Encounter Type Encounter Description Reason Pro vider Source IHE Encounter Template Text not used by [place] Advance Directives: All historical and current Section Date Range: From patient's date of to the date document was created. This section includes ALL of a patient's completed or amended [place] Advance and Rescinded Directives. The entries below indicate that a directive exists for the patient, but an actual copy is not included with this document. The data comes from all [place] facilities. Date Advance Directives Provider Source Dec 08, 2020 ADVANCE DIRECTIVE MARYCRUZ SANABRIA [facility]
--- OUTSIDE RECORDS SUMMARY | 2024-10-02 09:02 | XMS_ITS | Encounter Summary ---
Author Name [facility] [place] [facility] [place] Address [address] [place] [address] Care Team Providers Care Blow Down Helper Name Role Phone JOSEPH STAUFFER Primary Care Provider Unavailortiz coffey Insurance Providers: All historical and current Section [...] STAND WILLI FAM Jun 03, 2018 105 [id number] [phone] Abdiel WHITLEY PATIENT ANTHEM [place] F[place] PREFERRED PROVIDER ORGANIZAT ION (PPO) FEP STAND WILLI FAM Jun 03, 2018 105 [id number] [phone] Abdiel WHITLEY PATIENT ANTHEM [place] F[place] PREFERRED PROVIDER ORGANIZAT ION (PPO) FEP STAND WILLI FAM Jun 03, 2018 105 [id number] [phone] Abdiel WHITLEY PATIENT [place] F[place] PREFERRED PROVIDER ORGANIZAT ION (PPO) FEP STAND WILLI FAM Jun 03, 2018 105 [id number] [phone] Abdiel WHITLEY PATIENT [employer] FEP ([id number]) PRESCRIPT ION FEPRX May 20, 1994 [id number] [phone] Abdiel WHITLEY PATIENT MEDICARE (WNR) MEDICARE (M) PART A Aug 11, 2014 PART A [id number] Abdiel WHITLEY PATIENT MEDICARE (WNR) MEDICARE (M) PART B Aug 11, 2014 PART B [id number] [phone] Abdiel WHITLEY PATIENT Selected Encounter This section includes the information on record at [place] for the Encounter. Date/Time Encounter Type Encounter Description Reason Pro vider Source Mar 11, 2024 10:00 AM Outpatient Encounter DENTAL IHE Encounter Template Text not used by [place] Plan of Treatment: Future Appointments (+ 6 months) and Future Tests (+/- 45 days) The Plan of Treatment section includes future care activities for the patient from all [place] treatmentfacilities. This section includes future appointments and future orders which are active, pending or scheduled. Future Appointments This section includes appointments that were scheduled to occur 6 months from the date of the Encounter, up to a maximum of 20 appointments. The data comes from all [place] treatment facilities. Appointment Date/Time Appointment Type Appointme nt Facility Name Apr 10, 2024 08:00 AM AMBULATORY - NONE [facility] Apr 21, 2024 08:00 AM AMBULATORY - NONE [facility] Apr 22, 2024 08:30 AM AMBULATORY - NONE [facility] May 25, 2024 02:00 PM AMBULATORY - REHAB MEDICIN E [facility] Jun 16, 2024 08:30 AM AMBULATORY - NONE [facility] Jun 16, 2024 12:00 PM AMBULATORY - MEDICINE [facility] Jul 21, 2024 12:00 PM AMBULATORY - MEDICINE [facility] Sep 01, 2024 09:30 AM AMBULATORY - MEDICINE [facility] Sep 01, 2024 02:30 PM AMBULATORY - MEDICINE [facility] Active, Pending, and Scheduled Orders This section includes a listing of several types of active, pending, and scheduled orders, including clinic medications orders, diagnostic test orders, procedure orders and consult orders; where the start date of the order is 45 days before the date of the Encounter or 45 days after the date of theEncounter. The data comes from all [place] treatment facilities. Test Date/Time Test Type Test Details Facility Name Feb 10, 2024 02:50 PM Consult Order [facility] DENTAL SPEC [facility] Regional Account Manager's [facility] Apr 01, 2024 08:40 AM Consult Order [facility]ITY [facility]-GEC HOMEMAKER/HOME HEALTH AIDE STL Cons Regional Account Manager's [facility] Apr 02, 2024 08:24 AM Consult Order [facility] CSP [facility] Advance Directives: All historical and current Section Date Range: From patient's date of to the date document was created. This section includes ALL of a patient's completed or amended [place] Advance and Rescinded Directives. The entries below indicate that a directive exists for the patient, but an actual copy is not included with this document. The data comes from all [place] facilities. Date Advance Directives Provider Source Dec 08, 2020 ADVANCE DIRECTIVE MARYCRUZ SANABRIA [facility] Encounter Notes: All associated encounter notes This section contains the clinical notes associated to the Encounter. Date/Time Encounter Note(s) Provider Source Mar 11, 2024 01:23 PM DENTISTRY TELEPHON E ENCOUNTER NOTE: LOCAL TITLE: DENTAL TELEPHONE CONTACT [facility] STANDARD TITLE: DENTISTRY TELEPHONE ENCOUNTER NOTE DATE OF NOTE: MAR 11, 2024@13:23 ENTRY DATE: MAR 11, 2024@13:23:56 AUTHOR: JETHRO FAIR EXP COSIGNER: URGENCY: STATUS: COMPLETED Patient failed dental hygiene appt. /renzo/ JETHRO FAIR REGISTERED DENTAL HYGIENIST Signed: 03/11/2024 13:24 JETHRO FAIR [facility]
--- OUTSIDE RECORDS SUMMARY | 2024-10-02 09:02 | XMS_ITS | Encounter Summary ---
Author Name [facility] [place] [facility] [place] Address [address] [place] [address] Care Team Providers Care Digital Developer Name Role Phone EH JOSEPH Primary Care [...] STAND WILLI FAM Jun 03, 2018 105 [id number] [phone] Abdiel WHITLEY PATIENT AN[place] F[place] PREFERRED PROVIDER ORGANIZAT ION (PPO) FEP STAND WILLI FAM Jun 03, 2018 105 [id number] [phone] Abdiel WHITLEY PATIENT AN[place] PREFERRED PROVIDER ORGANIZAT ION (PPO) FEP STAND WILLI FAM Jun 03, 2018 105 [id number] [phone] Abdiel WHITLEY PATIENT [place] F[place] PREFERRED PROVIDER ORGANIZAT ION (PPO) FEP STAND WILLI FAM Jun 03, 2018 105 [id number] [phone] Abdiel WHITLEY PATIENT [employer] FEP ([id number]) PRESCRIPT ION FEPRX May 20, 1994 [id number] [phone] Abdiel WHITLEY PATIENT MEDICARE (WNR) MEDICARE (M) PART A Aug 11, 2014 PART A [id number] Abdiel WHITLEY PATIENT MEDICARE (WNR) MEDICARE (M) PART B Aug 11, 2014 PART B [id number] Abdiel WHITLEY PATIENT Selected Encounter This section includes the information on record at [place] for the Encounter. Date/Time Encounter Type Encounter Description Reason Pro vider Source IHE Encounter Template Text not used by [place] Advance Directives: All historical and current Section Date Range: From patient's date of to the date document was created. This section includes ALL of a patient's completed or amended [place] Advance and Rescinded Directives. The entries below indicate that a directive exists for the patient, but an actual copy is not included with this document. The data comes from all [place] facilities. Date Advance Directives Provider Source Dec 08, 2020 ADVANCE DIRECTIVE MARYCRUZ SANABRIA [facility]
--- OUTSIDE RECORDS SUMMARY | 2024-10-02 09:02 | XMS_ITS | Encounter Summary ---
Author Name [facility] [place] [facility] [place] Address [address] [place] [address] Care Team Providers Care Supervisor [employer] Former Name Role Phone INNA STAUFFER Primary Care Provider Unavailabl e Insurance [...] STAND WILLI FAM Jun 03, 2018 105 [id number] [phone] Abdiel HUNTER PATIENT [place] PREFERRED PROVIDER ORGANIZAT ION (PPO) FEP STAND WILLI FAM Jun 03, 2018 105 [id number] [phone] Abdiel HUNTER PATIENT [place] PREFERRED PROVIDER ORGANIZAT ION (PPO) FEP STAND WILLI FAM Jun 03, 2018 105 [id number] [phone] Abdiel HUNTER PATIENT [place] F[place] PREFERRED PROVIDER ORGANIZAT ION (PPO) FEP STAND WILLI FAM Jun 03, 2018 105 [id number] [phone] Abdiel HUNTER PATIENT [employer] FEP ([id number]) PRESCRIPT ION FEPRX May 20, 1994 [id number] [phone] Abdiel HUNTER PATIENT MEDICARE (WNR) MEDICARE (M) PART B Aug 11, 2014 PART B [id number] Abdiel HUNTER PATIENT MEDICARE (WNR) MEDICARE (M) PART A Aug 11, 2014 PART A [id number] Abdiel HUNTER PATIENT Selected Encounter This section includes the information on record at [place] for the Encounter. Date/Time Encounter Type Encounter Description Reason Provider Source Nov 07, 2023 09:30 AM OFFICE O/P NEW LOW 30 MIN GENERAL SURGERY ICD-10-CM R21 Rash and other nonspecific skin eruption ASHLEY LUU Marcus Encounter Template Text not used by [place] Assessments - Encounter Diagnoses This section includes the primary and secondary diagnoses documented for the Encounter. Date/Time Primary/Secondary Diagnosis Diagnosis Name Provider Source Nov 24, 2023 04:37 PM PRIMARY Rash and other nonspecific skin eruption SKYLA RENAE MM [facility] Plan of Treatment: Future Appointments (+ 6 months) and Future Tests (+/- 45 days) The Plan of Treatment section includes future care activities for the patient from all [place] treatmentfacilities. This section includes future appointments and future orders which are active, pending or scheduled. Future Appointments This section includes appointments that were scheduled to occur 6 months from the date of the Encounter, up to a maximum of 20 appointments. The data comes from all [place] treatment facilities. Appointment Date/Time Appointment Type Appointme nt Facility Name Nov 18, 2023 10:30 AM AMBULATORY - NONE [facility] Dec 02, 2023 12:00 PM AMBULATORY - NONE [facility] Dec 05, 2023 11:00 AM AMBULATORY - REHAB MEDICIN [facility] Dec 10, 2023 01:00 PM AMBULATORY - MEDICINE [facility] Dec 20, 2023 12:00 PM AMBULATORY - NONE [facility] Dec 23, 2023 02:00 PM AMBULATORY - RE[facility] E [facility] Jan 10, 2024 09:30 AM AMBULATORY - NONE [facility] Jan 14, 2024 10:30 AM AMBULATORY - MEDICINE [facility] Jan 16, 2024 11:00 AM AMBULATORY - SURGERY [facility] Jan 17, 2024 12:00 PM AMBULATORY - NONE [facility] Jan 24, 2024 11:00 AM AMBULATORY - REHAB MEDICIN E [facility] Feb 10, 2024 11:00 AM AMBULATORY - NONE [facility] Feb 10, 2024 02:00 PM AMBULATORY - NONE [facility] Feb 28, 2024 11:00 AM AMBULATORY - REHAB [facility]IN E [facility] Mar 05, 2024 10:30 AM AMBULATORY - NONE [facility] Mar 11, 2024 10:00 AM AMBULATORY - NONE [facility] Mar 11, 2024 12:00 PM AMBULATORY - NONE [facility] Apr 10, 2024 08:00 AM AMBULATORY - NONE [facility] Apr 21, 2024 08:00 AM AMBULATORY - NONE [facility] Apr 22, 2024 08:30 AM AMBULATORY - NONE [facility] Lab Results: +/- 30 days of the encounter This section includes the Chemistry and Hematology Lab Results on record with [place] for the patient. Radiology Reports and Pathology Reports are provided separately, in subsequent sections. Lab Results This section contains the Chemistry/Hematology Results that were resulted 30 days before or 30 daysafter the date of the Encounter. Date/Time Source Result Type Result - Unit Interpretation Reference Range Specimen Type Comment Nov 07, 2023 11:18 AM [facility] BASIC METABOLIC PANEL PLASMA Specimen Type: PLASMA Comment: No hemolysis noted. Ordering Provider: SKYLA RENAE MM Report Released Date/Time: Nov 07, 2023 10:50 AM Reporting Lab: [address] [address] Performing Lab: [address] [address] CREATININE 1.29 mg/dL 0.7-1.3 UREA NITROGEN 17.7 mg/dL 9.0-25.0 GLUCOSE 136 mg/dL H 72-99 SODIUM 138 meq/L 136-145 POTASSIUM 3.5 meq/L 3.5-5 CHLORIDE 103 meq/L 98-107 CARBON DIOXIDE 25 meq/L 22-31 CALCIUM 10.2 mg/dL 8.4-10.4 EGFR (CKD-EPI 2020) 58.2 >60 Nov 07, 2023 11:18 AM [facility] CBC BLOOD Specimen Type: BLOOD No comment entered. Ordering Provider: SKYLA RENAE MM Report Released Date/Time: Nov 07, 2023 10:50 AM Reporting Lab: [address] [address] Performing Lab: [address] [address] WBC 4.7 10*3/uL 3.6-11.2 RBC 4.60 10*6/uL [...] Pain Height Weight Body Mass Index Source Nov 07, 2023 10:14 AM 97.6 100 150/92 16 98 7 159.[address] [facility] Advance Directives: All historical and [...] Dec 08, 2020 ADVANCE DIRECTIVE MARYCRUZ SANABRIA [facility] Radiology Reports: +/- 30 days of [...] the Encounter. The data comes from all [place] treatment facilities. Date/Time Radiology Report Provider Source Nov 07, 2023 10:55 AM CHEST X-RAY, 2 VIEWS: SHERRI HUNTER [id number] -1950 M Exm Date: NOV 07, 2023@10:55 Req Phys: SKYLA RENAE MM Pat Loc: -GEN SURG II CLINIC (Req'g L Img Loc[facility] SUITE Service: [address] [address] (Case [id number] COMPLETE) CHEST X-RAY, 2 VIEWS (RAD Detailed) CPT:67172 Reason for Study: Pre-op evaluation Clinical History: Report Status: Verified Date Reported: NOV 07, 2023 Date Verified: NOV 07, 2023 Associate Product Integrity Engineer E-Sig:/ES/PRE SANDHU Report: CHEST X-RAY, 2 VIEWS [id number] DATE: 11/07/2023 10:55 AM HISTORY: Pre-op evaluation. COMPARISON: None. Findings: The heart size and mediastinal shadows are normal for the provided technique. The lungs are clear. There is no pneumothorax nor pleural effusion. The bony structures are age-appropriate. Impression: No visible acute cardiopulmonary disease. Primary Interpreting Staff: PER SANDHU, Diagnostic Radiologist (Associate Product Integrity Engineer) /PER BRENNER [facility] Oct 29, 2023 02:01 PM SPINE LUMBOSACRAL 2 OR 3 VIEWS: SHERRI HUNTER [id number] -1950 M Exm Date: OCT 29, 2023@14:01 Req Phys: INNA STAUFFER Loc: [facility] PACT 3 PCP (Req'g Lo Img Loc: -MAIN RADIOLOGY SUITE Service: [address] [address] (Case [id number] COMPLETE) SPINE LUMBOSACRAL 2 OR 3 VIEWS (RAD Detailed) CPT:63486 Reason for Study: Lumbar pain Clinical History: Report Status: Verified Date Reported: OCT 31, 2023 Date Verified: OCT 31, 2023 Associate Product Integrity Engineer E-Sig:/ES/OTF MORA Report: Case [id number]. SPINE LUMBOSACRAL 2 OR 3 VIEWS DATE: [...] fracture.. Primary Interpreting Staff: OTF MORA, RADIOLOGIST (Associate Product Integrity Engineer) /OTF MULTANI [facility] Oct 29, 2023 02:01 PM SHOULDER,LEFT,2 OR MORE VIEWS: SHERRI HUNTER Marcus [id number] -1950 M Exm Date: OCT 29, 2023@14:01 Req Phys: INNA STAUFFER Loc: -[facility] PACT 3 PCP (Req'g Lo Img Loc: [facility]-MAIN RADIOLOGY SUITE Service: Unknown [facility], [address] [place] [address] (Case [id number] COMPLETE) SHOULDER,LEFT,2 OR MORE VIEWS (RAD Detailed) CPT:97013 Proc Modifiers : LEFT Reason for Study: Left shoulder pain Clinical History: Report Status: Verified Date Reported: OCT 31, 2023 Date Verified: OCT 31, 2023 Associate Product Integrity Engineer E-Sig:/ES/HESHAM GLOVER MD Report: Case [id number] SHOULDER,LEFT,2 OR MORE VIEWS Comparison: None Findings: There is no fracture or dislocation. There is mild joint space narrowing and osteophyte formation at the acromioclavicular and glenohumeral joints. The visualized lung apex is clear. Impression: Mild glenohumeral and acromioclavicular osteoarthritis. Dictated by Fritz Thao M.D. (vice president business development) IHesham, have reviewed the images and report and concur with these findings. Primary Interpreting Staff: HESHAM GLOVER MD, Radiologist (Associate Product Integrity Engineer) Primary Interpreting Resident: Heath Jenkins, Resident /HESHAM JEFFERY [facility] Encounter Notes: All associated encounter notes This section contains the clinical notes associated to the Encounter. Date/Time Encounter Note(s) Provider Source Nov 08, 2023 08:09 AM SURGERY NOTE: LOCAL TITLE: GENERAL SURGERY NOTE ST STANDARD TITLE: SURGERY NOTE DATE OF NOTE: NOV 08, 2023@08:09 ENTRY DATE: NOV 08, 2023@08:09:35 AUTHOR: CLINTON UMANZOR EXP COSIGNER: URGENCY: STATUS: COMPLETED GENERAL SURGERY NOTE ST Has ADDENDA Verified patient identifiers: Full name and Called and talked to patients son Zan Hunter. Advised him that we wanted to get clearance from patients Medical Van Driver about holding his blood thinners (plavix and apixaban) for patients upcoming surgery on 24 November. Asked if he could provide the contact information for the Medical Van Driver. Zan stated his father has not seen a Medical Van Driver in 10 yrs and he is trying to re- establish patient with a Medical Van Driver in the [place]. Talked to DIAMOND Isidro advised patients surgery at this time should be cancelled and that a message should be sent to patients PCP to help get patient established with a Medical Van Driver. Also recommended that patient come back to clinic in about 2 months to be reassessed. Zan verbalized understanding and agreed to an appt on Jan at 11am. Surgery is cancelled at this time. /renzo/ CLINTON UMANZOR RN, BSN REGISTERED NURSE Signed: 11/08/2023 08:20 Receipt Acknowledged By: 11/11/2023 09:49 /es/ OTF QUINTERO MD Staff Physician, General Surgery II 11/08/2023 08:23 /es/ JUHI MCDOWELL Physician District Leader, Anesthesiology 11/08/2023 16:19 /renzo/ Inna Stauffer DNP, YESSI, TAUL-C Primary Care Nurse Practitioner 01/16/2024 08:19 /es/ YAYA ISIDRO PA-C Physician District Leader, General Surgery 11/08/2023 ADDENDUM STATUS: COMPLETED [facility] cardiology consult placed. Thank you! /mercy Stauffer DNP, YESSI, NOZZLE CEMENT SPRAYER HELPER-C Primary Care Nurse Practitioner Signed: 11/08/2023 16:22 CLINTON UMANZOR [facility] Nov 07, 2023 10:19 AM SURGERY CONSULT: LOCAL TITLE: GENERAL SURGERY II CONSULT ST STANDARD TITLE: SURGERY CONSULT DATE OF NOTE: NOV 07, 2023@10:19 ENTRY DATE: NOV 07, 2023@10:19:44 AUTHOR: SKYLA RENAE MM EXP COSIGNER: ASHLEY LUU URGENCY: STATUS: COMPLETED GENERAL SURGERY II CONSULT STL Has ADDENDA HPI: 73 YEAR OLD MALE with PMH of HTN, CVA, Afib (s/p watchman), HLD, who presents with a cyst on his posterior head that has been there for 2-3 months. He says it occassionally drains fluid when he squeezes it but is otherwise non- draining. Denies pain or redness. He has had some discomfort with this. Denies fevers, chills, nausea, vomiting. He does report that his medication list is incorrect but does not know what medications he is currently taking. 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 ACTIVE OUTPATIENT MEDS: Active Outpatient Medications (including Supplies): Active Outpatient Medications Status 1) ACCU-CHEK GUIDE (GLUCOSE) TEST STRIP USE 1 STRIP FOR ACTIVE BLOOD TEST FOUR TIMES A DAY FOR BLOOD SUGAR MONITORING *INTENSIVE INSULIN THERAPY- UP TO 4 TIMES DAILY Apr 2) ALCOHOL PREP PAD USE/APPLY PAD TO AFFECTED AREA(S) ACTIVE FOUR TIMES A DAY NEEDED FOR SKIN CLEANSING 3) BRIEF,PROTECTIVE SUPER ABS LG ATTENDS USE 1 BRIEF TO ACTIVE AFFECTED AREA(S) THREE TIMES A DAY NEEDED FOR INCONTINENCE 4) LANCET,SOFTCLIX USE LANCET FOR BLOOD TEST FOUR TIMES ACTIVE A DAY NEEDED FOR BLOOD SUGAR MONITORING USE DIRECTED. Active Non-VA Medications Status 1) Non-VA AMLODIPINE [...] 1 DROP BOTH EYES ACTIVE EVERY EVENING 10) Non-VA LEVETIRACETAM 500MG TAB 1000MG BY MOUTH TWICE ACTIVE A DAY 11) Non-VA MAGNESIUM OXIDE 400MG TAB 400MG BY MOUTH ONCE ACTIVE A DAY 12) Non-VA METFORMIN 1000/SAXAGLIPTIN 2.5MG SA TAB 2 ACTIVE TABLETS BY MOUTH ONCE A DAY 13) Non-VA PANCRELIPASE (EQV-ZENPEP) 5,000 EC CAP 3 ACTIVE CAPSULES BY MOUTH THREE TIMES A DAY BEFORE MEALS 14) Non-VA PANTOPRAZOLE NA 40MG EC TAB 40MG BY MOUTH ACTIVE EVERY MORNING 15) Non-VA PREGABALIN 75MG ORAL CAP 75MG BY MOUTH AT ACTIVE BEDTIME 16) Non-VA SOTALOL TAB BY MOUTH ACTIVE 17) Non-VA TAMSULOSIN HCL 0.4MG CAP 0.4MG BY MOUTH EVERY ACTIVE EVENING 21 Total Medications SOCIAL HX: SMOKING: Denies ALCOHOL: Denies IVDA: Denies FAMILY HX: No hx of skin cancer or cancer PHYSICAL EXAM: Gen: NAD HEENT: NC/AT, MMM, small cyst on posterior scalp with punctate opening Neck: Supple Resp: non-labored respirations on room air CV: RRR Abd: soft, non-distended Ext: WWP LABS: CHEM 7: No BASIC METABOLIC PANEL (BMP) EO data found WBC: ____ HGB: No HEMOGLOBIN EO data found HCT: ____ PLATELETS: No PLATELETS EO data found DIAGNOSIS: scalp cyst ASSESSMENT/PLAN: 73 y/o M with multiple comorbidities who presents with a scalp cyst. He would like it removed. We discussed the risks of surgery including bleeding, infection, recurrence, need for further procedures, pain, scarring, and the risks of general anesthesia. - Plan for surgery for cyst excision - Anesthesia consult - EKG, CXR, Labs ordered /renzo/ SKYLA RENAE MD Resident Physician, General Surgery II Signed: 11/07/2023 11:07 /renzo/ ASHLEY LUU MD Staff Physician, General Surgery I Cosigned: 11/07/2023 11:18 11/07/2023 ADDENDUM STATUS: COMPLETED I have seen and examined this patient and have confirmed the resident's findings from above. I have assisted in the formation of this plan as stated above and have made changes as appropriate. I agree with the plan as stated above. /renzo/ ASHLEY LUU MD Staff Physician, General Surgery I Signed: 11/07/2023 11:18 SKYLA RENAE MM [facility]
--- OUTSIDE RECORDS SUMMARY | 2024-10-02 09:02 | XMS_ITS ---
* Procedure Codes: * Electronic signature of Miguel Clayton MD on 10/02/2024 at 09:02 AM CDT Sign off status: Pending * Provider: Abdiel Clayton MD Date: 1 Generated for Chan recio/Camilo/Ariadna on: 0 10/02/2024 09:02 AM CDT History and Physical Notes * [...] as well, such of that of a tyvg-tc-larc parent or volunteer.: 10-Worst Disability Sexual Behavior: [...] directed home exercise program Have you tried adaptive physical education specialist apy? (If Yes where and when): Yes [...] o person, place and time Neurologic exam: 09/[address] rength, left-sided facial droop Back Some mild lumbar par aspinous tenderness Musculoskeletal osteoarthritis in th e hands with degenerative changes bilaterally, no acute swelling
--- OUTSIDE RECORDS SUMMARY | 2024-10-02 09:02 | XMS_ITS | Encounter Summary ---
Author Name [facility] [place] [facility] [place] Address [address] [place] [address] Care Team Providers Care Career Based Intervention Coordinator Name Role Phone JOSEPH STAUFFER Primary Care [...] STAND WILLI FAM Jun 03, 2018 105 [id number] [phone] Abdiel WHITLEY PATIENT ANTHEM [place] FEP PREFERRED PROVIDER ORGANIZAT ION (PPO) FEP STAND WILLI FAM Jun 03, 2018 105 [id number] [phone] Abdiel WHITLEY PATIENT ANTHEM [place] F[place] PREFERRED PROVIDER ORGANIZAT ION (PPO) FEP STAND WILLI FAM Jun 03, 2018 105 [id number] [phone] Abdiel WHITLEY PATIENT [place] FEP PREFERRED PROVIDER ORGANIZAT ION (PPO) FEP STAND WILLI FAM Jun 03, 2018 105 [id number] [phone] Abdiel WHITLEY PATIENT [employer] FEP ([id number]) PRESCRIPT ION FEPRX May 20, 1994 [id number] [phone] Abdiel WHITLEY PATIENT MEDICARE (WNR) MEDICARE (M) PART A Aug 11, 2014 PART A [id number] Abdiel WHILTEY PATIENT MEDICARE (WNR) MEDICARE (M) PART B Aug 11, 2014 PART B [id number] Abdiel WHITLEY PATIENT Selected Encounter This section includes the information on record at [place] for the Encounter. Date/Time Encounter Type Encounter Description Reason Provider Source Jan 16, 2024 11:00 AM OFFICE O/P EST SF 10 MIN GENERAL SURGERY ICD-10-CM R21 Rash and other nonspecific skin eruption VAHE HONEYCUTT Encounter Template Text not used by [place] Assessments - Encounter Diagnoses This section includes the primary and secondary diagnoses documented for the Encounter. Date/Time Primary/Secondary Diagnosis Diagnosis Name Provider Source Jan 27, 2024 01:53 PM PRIMARY Rash and other nonspecific skin eruption LIS VALDEZ [facility] Plan of Treatment: Future Appointments (+ 6 months) and Future Tests (+/- 45 days) The Plan of Treatment section includes future care activities for the patient from all [place] treatmentfacilities. This section includes future appointments and future orders which are active, pending or scheduled. Future Appointments This section includes appointments that were scheduled to occur 6 months from the date of the Encounter, up to a maximum of 20 appointments. The data comes from all [place] treatment facilities. Appointment Date/Time Appointment Type Appointme nt Facility Name Jan 17, 2024 12:00 PM AMBULATORY - NONE . [facility] Jan 24, 2024 11:00 AM AMBULATORY - REHAB MED[facility]IN E [facility] Feb 10, 2024 11:00 AM AMBULATORY - NONE . [facility] Feb 10, 2024 02:00 PM AMBULATORY - NONE [facility] Feb 28, 2024 11:00 AM AMBULATORY - RE[facility] MED[facility]IN E [facility] Mar 05, 2024 10:30 AM [facility] NONE [facility] Mar 11, 2024 10:00 AM [facility] NONE [facility] Mar 11, 2024 12:00 PM AMBULATORY - NONE [facility] Apr 10, 2024 08:00 AM AMBULATORY - NONE [facility] Apr 21, 2024 08:00 AM AMBULATORY - NONE [facility] Apr 22, 2024 08:30 AM AMBULATORY - NONE [facility] May 25, 2024 02:00 PM AMBULATORY - [facility]AB MEDICIN E [facility] Jun 16, 2024 08:30 AM AMBULATORY - NONE [facility] Jun 16, 2024 12:00 PM AMBULATORY - MEDICINE [facility] Active, Pending, and Scheduled Orders This section includes a listing of several types of active, pending, and scheduled orders, including clinic medications orders, diagnostic test orders, procedure orders and consult orders; where the start date of the order is 45 days before the date of the Encounter or 45 days after the date of theEncounter. The data comes from all [place] treatment facilities. Test Date/Time Test Type Test Details Facility Name Feb 10, 2024 02:50 PM Consult Order [facility] Cons Supervisor Travel Information Center's Choice [facility] Vital Signs: All taken on the encounter date This section contains inpatient and outpatient Vital Signs collected on the date of the Encounter. Date/Time Temperature Pulse Blood Pressure Respiratory Rate SP02 Pain Height Weight Body Mass Index Source Jan 16, 2024 11:24 AM 97.8 85 132/78 18 97 8 74 176 23 [facility] Advance Directives: All historical and current Section Date Range: From patient's date of to the date document was created. This section includes ALL of a patient's completed or amended [place] Advance and Rescinded Directives. The entries below indicate that a directive exists for the patient, but an actual copy is not included with this document. The data comes from all [place] facilities. Date Advance Directives Provider Source Dec 08, 2020 ADVANCE DIRECTIVE [facility] Encounter Notes: All associated encounter notes This section contains the clinical notes associated to the Encounter. Date/Time Encounter Note(s) Provider Source Jan 17, 2024 10:57 AM ADMINISTRATIVE NOT E: LOCAL TITLE: ADMINISTRATIVE STL STANDARD TITLE: ADMINISTRATIVE NOTE DATE OF NOTE: JAN 17, 2024@10:57 ENTRY DATE: JAN 17, 2024@10:58:03 AUTHOR: BERTRAM SEGOVIA EXP COSIGNER: URGENCY: STATUS: COMPLETED Patient's Hemoglobin A1c from a non-[place] lab. Date: August 19, 2023 Result 7.0 /es/ BERTRAM SEGOVIA STAFF PHYSICIAN Signed: 01/17/2024 10:58 BERTRAM SEGOVIA [facility] Jan 16, 2024 02:01 PM SURGERY NOTE: LOCAL TITLE: GENERAL SURGERY NOTE STL STANDARD TITLE: SURGERY NOTE DATE OF NOTE: JAN 16, 2024@14:01 ENTRY DATE: JAN 16, 2024@14:01:39 AUTHOR: AWAIS VALDEZ EXP COSIGNER: VAHE HONEYCUTT URGENCY: STATUS: COMPLETED GENERAL SURGERY NOTE STL Has ADDENDA JAN 16, 2024 HPI: 73 YEAR OLD MALE with PMH of HTN, CVA, Afib (s/p watchman), HLD, who previously presents with a cyst on his posterior head that occassionally drains fluid when he squeezed. Patient was scheudled for surgical removal but his case was cancelled as he had not seen a bathing suit maker for over ten years. He now has seen cadriology and is potentially eligible for surgery. The patient now reports that he no longer has any symptoms assoicated with his cyst Denies pain or redness, and recent drainage. Denies fevers, chills, nausea, vomiting. He does report that his medication list is incorrect but does not know what medications he is currently taking. 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 LUNGS: Non-labored on RA HEART: RRR ABDOMEN: Soft, Non-tender, non-distended EXT: WWP Labs: reviewed Imaging: reviewed Diagnosis: left sided epidermal inclusion cyst of the posterior scalp Assessment: 73 y/o M with multiple comorbidities who presents with a left sided epidermal inclusion cyst of the posterior scalp. It is no longer causing him symptoms ans he has deferred surgical management at this time. No signs of infection. Plan: - Follow up in surgery clinic PRN - If patient would like cyst removed would require plan for holding anticoagulation /renzo/ AWAIS VALDEZ DO Resident Physician, General Surgery II Signed: 01/16/2024 14:09 /renzo/ VAHE HONEYCUTT MD, FACS Staff Physician Cosigned: 01/17/2024 08:21 01/17/2024 ADDENDUM STATUS: COMPLETED Patient seen with Dr. Valdez, please see his note Exam confirmed Discussed options with patient, who prefers non op mgmt at this time He may return to clinic if he has problems/questions/desires removal Agree with assessment and plan as outlined /es/ VAHE HONEYCUTT MD, FACS Staff Physician Signed: 01/17/2024 08:22 AWAIS VALDEZ [facility]
--- OUTSIDE RECORDS SUMMARY | 2024-10-02 09:02 | XMS_ITS | Encounter Summary ---
Author Name [facility] [place] [facility] [place] Address [address] [place] [address] Care Team Providers Care Chlorine Cell Tender Name Role Phone EH JOSEPH Primary Care [...] STAND WILLI FAM Jun 03, 2018 105 [id number] [phone] Abdiel WHITLEY PATIENT AN[place] F[place] PREFERRED PROVIDER ORGANIZAT ION (PPO) FEP STAND WILLI FAM Jun 03, 2018 105 [id number] [phone] Abdiel WHITLEY PATIENT [place] PREFERRED PROVIDER ORGANIZAT ION (PPO) FEP STAND WILLI FAM Jun 03, 2018 105 [id number] [phone] Abdiel WHITLEY PATIENT [place] PREFERRED PROVIDER ORGANIZAT ION (PPO) FEP STAND WILLI FAM Jun 03, 2018 105 [id number] [phone] Abdiel WHITLEY PATIENT [employer] FEP ([id number]) PRESCRIPT ION FEPRX May 20, 1994 [id number] [phone] Abdiel WHITLEY PATIENT MEDICARE (WNR) MEDICARE (M) PART A Aug 11, 2014 PART A [id number] Abdiel WHITLEY PATIENT MEDICARE (WNR) MEDICARE (M) PART B Aug 11, 2014 PART B [id number] Abdiel WHITLEY PATIENT Selected Encounter This section includes the information on record at [place] for the Encounter. Date/Time Encounter Type Encounter Description Reason Pro vider Source IHE Encounter Template Text not used by [place] Advance Directives: All historical and current Section Date Range: From patient's date of to the date document was created. This section includes ALL of a patient's completed or amended [place] Advance and Rescinded Directives. The entries below indicate that a directive exists for the patient, but an actual copy is not included with this document. The data comes from all [place] facilities. Date Advance Directives Provider Source Dec 08, 2020 ADVANCE DIRECTIVE [facility]
--- OUTSIDE RECORDS SUMMARY | 2024-10-02 09:02 | XMS_ITS | Patient Health Record ---
Author Organization [facility] Address [address] [place] [address] Care Team Providers Care Matrix Supervisor Name Role Phone Miguel Clayton Unavailable [phone] Nan JUAREZ, Betzy Unavailable Unavailable Gabriel West Unavailable [phone] Allergies Allergen (clinical drug ingredient) Drug/Non Drug Allergy documented on EMR Reaction Allergy Type Onset Date Status penicillin (uncoded) Unknown Allergy Active Substance with sulfonamide structure and antibacterial mechanism of action (substance) sulfa (uncoded) Unknown Allergy Active Reason For Referral No Information Medications Medication SIG (Take, Route, Frequency, Duration) Notes Start Date End Date Status HYDROcodone-Acetaminoph en 5-325 MG 1 tablet as needed Orally once a day for [address] Gabriel West KENDAL: [id number] 04/21/2024 Active Atorvastatin Calcium 80 MG 1 tablet Orally Once a day for 30 day(s) Active Horizon Lumbar Support as directed 01/07/2017 Active amLODIPine Besylate 10 MG 1 tablet Orally Once a day Active Bethanechol Chloride 25 MG 1 tablet on an empty stomach Orally Three times a day Active Gabapentin 600 MG 1 tablet Orally Two times a day Active Metoprolol Succinate Active Furosemide 40 MG 1 tablet Orally Once a day Active Folic Acid 1 MG 1 tablet Orally Once a day for 30 day(s) Active EnteraGam 5 GM Orally Activ e Finasteride 5 MG 1 tablet Orally Once a day for 30 day(s) Active metFORMIN HCl 1000 MG 1 tablet with a meal Orally Once a day Active Cyanocobalamin 100 MCG as directed Orally Active HYDROcodone-Acetaminoph en 7.5-325 MG 1 tablet as needed Orally every 6 hrs for 7 days Active Brimonidine Tartrate 0.2 % 1 drop into affected eye Ophthalmic every 8 hrs Active Problems Problem Type SNOMED Code ICD Code Onset Dates Problem Status W/U Status Risk Notes Problem Localized, primary osteoarthritis of the pelvic region and thigh (414794852) Unilateral primary osteoarthritis, unspecified hip (M16.10) Active confirmed Problem Osteoarthritis of knee (238490656) Bilateral primary osteoarthritis of knee (M17.0) Active confirmed Problem Localized, primary osteoarthritis of the shoulder region (313345488) Primary osteoarthritis, 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) Active confirmed Problem Pain of right knee region (finding) (584850622393729) Pain in right knee (M25.561) Active confirmed Problem Solitary sacroiliitis (645984677) Sacroiliitis, not elsewhere classified (M46.1) Active confirmed Problem Lumbosacral spondylosis without myelopathy (42341269) Other spondylosis with radiculopathy, lumbar region (M47.26) Active confirmed Problem Cervical spondylosis without myelopathy (456143336) Spondylosis without myelopathy or radiculopathy, cervical region (M47.812) Active confirmed Problem Lumbosacral spondylosis without myelopathy (44547666) Spondylosis without myelopathy or radiculopathy, lumbar region (M47.816) Active confirmed Problem Lumbosacral spondylosis without myelopathy (disorder) (87550351) Spondylosis without myelopathy or radiculopathy, lumbosacral region (M47.817) Active confirmed Problem Lumbar radiculopathy (762856845) Radiculopathy, lumbar region (M54.16) Active confirmed Vital Signs Heart Rate 85 /min 04/20/2024 Temperature 98.2 degrees Fahrenheit 04/20/2024 Oximetry 97 04/20/2024 Blood pressure diastolic 87 mm Hg 04/20/2024 Height 74 in 04/20/2024 Blood pressure systolic 167 mm Hg 04/20/2024 Weight 173 lbs 04/20/2024 BMI 22.21 04/20/2024 Procedures Procedure Date Ordered Date Performed Result Body Sit e *ASC LUMBAR FACET/MBB JOINT INJ BILATERAL#1 00231 1st level, 43407 2nd level 04/20/2024 N/A Encounters Encounter Location Date Provider Diagnosis -/ PHYS [facility] [address] 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 [address] [place] [address] 04/20/2024 Miguel Clayton Spondylosis without myelopathy or radiculopathy, lumbar region M47.816 and Bilateral primary osteoarthritis of knee M17.0 -[facility] [address] [facility] [address] [place] [address] 04/21/2024 Gabriel West -[facility] [address] [place] [address] 04/23/2024 Miguel Clayton Assessments Encounter Date Diagnosis (ICD Code) Assessment Notes Treatment Notes Treatment Clinical Notes Section Notes 02/05/2024 Spondylosis without myelopathy or radiculopathy, cervical region (ICD-10 - M47.812) 02/05/2024 [facility] (current) use of opiate analgesic (ICD-10 - Z79.891) 04/20/2024 Bilateral primary osteoarthritis of knee (ICD-10 - M17.0) 04/20/2024 Spondylosis without myelopathy or radiculopathy, lumbar region (ICD-10 - M47.816) the patient has taken pain medication with significant symptomatic improvement on a sparing basis in the past and he did want to continue that. He states he takes it about once per day when he needs it but even more sparingly than that lately. I think it is reasonable under the circumstances to consider that as he denies any side effects associated with the medication although he would like to also proceed with bilateral L3-L4 and L5 medial branch nerve blocks. Discussing that he really did not want to pursue that he continues to deny radicular symptoms he states his pain is identical and responded to radiofrequency some time ago. Follow up imaging including CT of the abdomen and pelvis more recently mostly demonstrated facet arthritis and previous MRIs failed to demonstrate any severe or significant stenosis so I think it is reasonable. Regarding his knees he wanted to consider possibly viscosupplementation as he has failed steroid injections in the past. I discussed with him the concerns of opioid medication including those of physical independence, tolerance, addiction, limited long-term efficacy. He understood that. I also discussed the risks of respiratory depression. He 02/05/2024 Radiculopathy, lumbar region (ICD-10 - M54.16) [...] shoulder (ICD-10 - M19.019) 02/05/2024 Other Reviewed [place] PDMP on 02/04/24 at 10:05 am and patient was not found in the system. Lives in [place] 03/09/2024 Other Reviewed [place] PDMP on 02/04/24 at 10:05 am and patient was not found in the system. [place] 04/20/2024 Other Reviewed [place] PDMP on 04/20/24 at 7:14 am and patient was not found in the system. [place] unable to check PDMP Given 7 days to start [place]-Acet 5-325 on 01/2024 Plan Of Treatment Pending Test Test Name Order Date X ray : Knee, right 07/18/2022 TENS unit 04/03/2017 MRI : Lumbar Spine With/Without Contrast 09/13/2017 MRI : Lumbar Spine With/Without Contrast 07/18/2016 x-ray : bilateral shoulders 01/07/2017 *ASC LUMBAR FACET/MBB JOINT INJ BILATERAL#1 96558 1st level, 78364 2nd level 04/20/2024 UDS [facility] ToxAssure Flex 23 #[id number] Insurance Providers Payer Name Payer Address Payer Phone Subscriber Number Group Number Insured Name Patient Relationship to Insured Coverage Start Date Coverage End Date [place] [address] [address] [place] [address] [id number] Jesse Hunter Self - patient is the insured 5 [employer] Plan [address] [place] [address] [id number] Jesse Hunter Self - patient is the insured [facility] for Life - T4L [address] [place] [address] [id number] Jesse Hunter Self - patient is the insured [place] [address] [address] [place] [address] [id number] Jesse Hunter Self - patient is the insured Medical (General) History Medical History History ICD Code high blood pressure diabetes Rheumatoid Arthritis Prostate problems/urinary incontinence/b ladder infections Surgical History Surgery Date(Month/Year) knee surgery 2012 back surgery 2010 Hospitalization History Reason Date(Month/Year)
--- OUTSIDE RECORDS SUMMARY | 2024-10-02 09:02 | XMS_ITS | Encounter Summary ---
Author Name [facility] [place] Organization [facility] [place] Address [address] [place] [address] Care Team Providers Care Cooler Operator Name Role Phone EH JOSEPH Primary [...] STAND WILLI FAM Jun 03, 2018 105 [id number] [phone] Abdiel WHITLEY PATIENT ANTHEM [place] F[place] PREFERRED PROVIDER ORGANIZAT ION (PPO) FEP STAND WILLI FAM Jun 03, 2018 105 [id number] [phone] Abdiel WHITLEY PATIENT AN[place]M [place] PREFERRED PROVIDER ORGANIZAT ION (PPO) FEP STAND WILLI FAM Jun 03, 2018 105 [id number] [phone] Abdiel WHITLEY PATIENT [place] PREFERRED PROVIDER ORGANIZAT ION (PPO) FEP STAND WILLI FAM Jun 03, 2018 105 [id number] [phone] Abdiel WHITLEY PATIENT [employer] FEP ([id number]) PRESCRIPT ION FEPRX May 20, 1994 [id number] [phone] Abdiel WHITLEY PATIENT MEDICARE (WNR) MEDICARE (M) PART A Aug 11, 2014 PART A [id number] Abdiel WHITELY PATIENT MEDICARE (WNR) MEDICARE (M) PART B Aug 11, 2014 PART B [id number] Abdiel WHITLEY PATIENT Selected Encounter This section includes the information on record at [place] for the Encounter. Date/Time Encounter Type Encounter Description Reason Pro vider Source IHE Encounter Template Text not used by [place] Advance Directives: All historical and current Section Date Range: From patient's date of to the date document was created. This section includes ALL of a patient's completed or amended [place] Advance and Rescinded Directives. The entries below indicate that a directive exists for the patient, but an actual copy is not included with this document. The data comes from all [place] facilities. Date Advance Directives Provider Source Dec 08, 2020 ADVANCE DIRECTIVE MARYCRUZ [facility]
--- OUTSIDE RECORDS SUMMARY | 2024-10-02 09:03 | XMS_ITS | Patient Health Record ---
Author Organization [facility] Address [address] [place] [id number] Care Team Providers Care Channel Director Name Role Phone Victorina JUAREZ, Raymundo Primary Care Provider Unavailable Davian Cruz Unavailable [phone] ALLERGIES Allergen (clinical drug ingredient) Drug/Non Drug Allergy documented on EMR Reaction Allergy Type Onset Date Status Latex Unknown Drug Allergy Active Penicillin Unknown Drug Allergy Active sulfa Unknown Drug Allergy Active lisinopril Lisinopril Unknown Drug Allergy Activ e celecoxib Celebrex Unknown Drug Allergy Active REASON FOR REFERRAL No Information MEDICATIONS Medication SIG (Take, Route, Frequency, Duration) Notes Start Date End Date Status amLODIPine Besylate 10 MG 1 tablet Orall y Once a day for 90 Active TL Neeta Rx 0. 1 tablet Orally Once a day Active HYDROcodone-Acetaminophen 7.5-325 MG 1 tablet as needed Orally every 6 hrs Active Bethanechol Chloride 25 MG 1 tablet on a n empty stomach Orally Three times a day Active Depo-Testosterone 100 MG/ML 1 ml Intramuscular 2 weeks A ctive Pantoprazole Sodium 40 MG 1 tablet Orally Once a day Active Doxycycline Hyclate 100 mg 1 capsule Int ravenous Once a day Active Methotrexate 2.5 MG 4 tablets Orally onc e a week Active metFORMIN HCl 500 MG 1 tablet with meals Orally Twice a day Active predniSONE 10 MG 1 tablet with food o r milk Orally Once a day Active Bystolic 10 MG 1 tablet Orally thre e times a day Active Levitra 10 MG 1 tablet as needed O rally PRN Active IMMUNIZATIONS Vaccine Route Administration Date Status Comme nts Influenza Unknown 03/03/2015 Refused Pneumococcal Unknown 03/03/2015 Refused SOCIAL HISTORY Sex Assigned At : Social History Observation Description Sex Assigned At Unknown PROBLEMS Problem Type ICD Code Onset Dates Problem Status W/U Status Risk SNOMED Code Notes Problem Essential (primary) hypertension (I10) Active confirmed Essential hypertension (76890437) Problem Acute kidney failure, unspecified (N17.9) Active confirmed Acute renal failure syndrome (26515306) Has resolved now PLAN OF TREATMENT No Information Insurance Providers Payer Name Payer Address Payer Phone Subscriber Number Group Number Insured Name Patient Relationship to Insured Coverage Start Date Coverage End Date Medicare Part B [address] [place] [address] [phone] [id number] Jesse Hunter Self - patient is the insured [facility] Blue Cross/blue Shield [address] [place] [address] [id number] Jesse Hunter Self - patient is the insured [employer] [address] [place] [address] [id number] Jesse Hunter Self - patient is the insured MEDICAL (GENERAL) HISTORY Medical History History ICD Code High blood pressure x 8 years, not under control Diabetes x 8 years Rheumatoid arthritis Prostate problems/urinaryincontinence/bl adder infections Surgical History Surgery Date(Month/Year) Irrigation and Debridement Total Knee Revision Total Knee 04/26/2014 Removal Total Knee 02/17/2014 Laparoscopic Cholecystectomy 02/15/2014 GI EDG 02/11/2014 Replacement Total Knee 04/29/2013 GI Small Bowel Capsule 12/29/2012 GI Small Bowel Capsule 12/24/2012 GI EDG 12/16/2012 Hospitalization History Reason Date(Month/Year) see surgical history
--- OUTSIDE RECORDS SUMMARY | 2024-10-02 09:03 | XMS_ITS | Continuity of Care Document ---
Author Name [facility] Organization [facility] Care Team Providers Care Tier In Name Role Phone [facility] Unavailable Unavailable Problems Combined list of problems from Department of Defense and [facility] Affairs facilities. It does not include entries that were removed or entered in error. Problem Status Onset Date Problem Type Date of Resolution Comments Source Atrial fibrillation Active Condition [facility] Benign essential hypertension Active Condition [facility] Benign prostatic hyperplasia Active Condition [facility] Bunion Active Condition [facility] Cerebral infarction Active Condition [facility] Cyst Active Condition [facility] Gastroesophageal reflux disease Active Condition [facility] Hyperlipidemia Active Condition [facility] Knee pain (SNOMED CT [id number]) Active Condition [facility] Osteoarthritis of lumbar spine Active Condition [facility] Osteoarthritis of shoulder Active Condition [facility] Peripheral nerve disease Active Condition [facility] Rheumatoid arthritis Active Condition [facility] Seizure Active Condition [facility] Type 2 diabetes mellitus Active Condition [facility] Clostridium difficile colitis Inactive Condition 04/01/2022 [facility] DIAPHRAGMATIC HERNIA Inactive Condition 10/10/2023 [facility] OSTEOARTHROS NOS-UNSPEC Inactive Condition 10/10/2023 [facility] PEPTIC ULCER NOS Inactive Condition 10/10/2023 [facility] ROUTINE MEDICAL EXAM Inactive Condition 04/01/2022 [facility] Diagnosis: ICD-10-CM I48.0 Paroxysmal atrial fibrillation Active Diagnosis [facility] Diagnosis: ICD-10-CM I63.9 Cerebral infarction, unspecified Active Diagnosis [facility] Diagnosis: ICD-10-CM M25.569 Pain in unspecified knee [facility] Diagnosis: ICD-10-CM K08.409 Partial loss of teeth, unspecified cause, unspecified class Active Diagnosis [facility] Diagnosis: ICD-10-CM R21 Rash and other nonspecific skin eruption Active Diagnosis [facility] Diagnosis: ICD-10-CM M25.512 Pain in left shoulder Active Diagnosis [facility] Diagnosis: ICD-10-CM Z04.89 Encounter for examination and observation for oth reasons Active Diagnosis [facility] Diagnosis: ICD-10-CM Z00.00 Encntr for general adult medical exam w/o abnormal findings Active Diagnosis [facility] Diagnosis: ICD-10-CM M54.50 Low back pain, unspecified Active Diagnosis [facility] Diagnosis: ICD-10-CM M06.9 Rheumatoid arthritis, unspecified Active Diagnosis [facility] Diagnosis: ICD-10-CM M25.562 Pain in left knee Active Diagnosis [facility] Medications Combined list of outpatient medications from Department of Defense and [facility] facilities.Medications provided include 1) outpatient medications from the last 15 months, and 2) patient-reported medications. Medication Details Route Status Patient Instructions Prescription Expires Prescription Number Last Dispense Date Ordering Provider Order Date Order Qty Source AMLODIPINE BESYLATE 2.5MG TAB TAKE ONE TABLET BY MOUTH ONCE A DAY ORAL ACTIVE LETITIA STAUFFER BRIGHTY R 2022 [facility] AMYLASE 24,000UNIT/ LIPASE 5,000UNIT/P ROTEASE 17,000UNIT CAP,EC TAKE 3 CAPSULES BY MOUTH THREE TIMES A DAY BEFORE MEALS ORAL ACTIVE LETITIA STAUFFER NEREYDA R 2021 [facility] APIXABAN 5MG TAB TAKE ONE TABLET BY MOUTH TWICE A DAY ORAL ACTIVE LETITIA STAUFFER LBY R 2022 [facility] ATORVASTATI N CA 40MG TAB TAKE ONE-HALF TABLET BY MOUTH EVERY EVENING ORAL ACTIVE YOKASTA BOOKER MD 2019 [facility] BETHANECHOL CL 25MG TAB TAKE TWO TABLETS BY MOUTH THREE TIMES A DAY ORAL ACTIVE LETITIA STAUFFER R 2021 [facility] CHLORHEXIDI NE GLUCONATE 4% LIQUID,TOP APPLY MODERATE AMOUNT TO AFFECTED AREA(S) DIRECTED (TOPICAL USE ONLY) AVOID CONTACT WITH EYES. CHIARA TRINIDAD INUED BY ALBERT R 12/07/2023 [id number] SILKE RENAE MM [address] [facility] CLOPIDOGREL BISULFATE 75MG TAB TAKE ONE TABLET BY MOUTH ONCE A DAY ORAL ACTIVE LETITIA STAUFFER R 2022 [facility] DIAZEPAM 5MG TAB TAKE ONE TABLET BY MOUTH ONE-TIME FOR ANXIETY AVOID TAKING WITH GRAPEFRU IT JUICE. PLEASE TAKE 30-60 MINUTES PRIOR TO MRI. ORAL 02/20/2024 [id number] LETITIA STAUFFER R [address] [facility] FINASTERIDE 5MG TAB TAKE ONE TABLET BY MOUTH ONCE A DAY ORAL ACTIVE LETITIA STAUFFER R 2021 [facility] HYDROCODONE 7.5MG/ACETA MINOPHEN 325MG TAB TAKE ONE TABLET BY MOUTH EVERY 6 HOURS NEEDED ORAL ACTIVE YOKASTA BOOKER MD 2017 [facility] HYDROXYCHLO ROQUINE SULFATE (HYDROXYCHL OROQUINE SULFATE), 200MG, TABLET, ORAL, [facility], 100 ea. BOTTLE Active [id number] 2023 180 Pharmac y Data Transac tion Service Facilit y INSULIN,ASP ART,HUMAN 100 UNT/ML INJ INJECT 2 UNITS UNDER THE SKIN THREE TIMES A DAY BEFORE MEALS SUBCUT ANEOUS ACTIVE LETITIA STAUFFER R 2021 [facility] LATANOPROST 0.005% SOLN,OPH INSTILL 1 DROP IN BOTH EYES EVERY EVENING OPHTHA LMIC ACTIVE YOKASTA BOOKER MD 2017 [facility] LEVETIRACET AM 500MG TAB TAKE TWO TABLETS BY MOUTH TWICE A DAY ORAL ACTIVE LETITIA STAUFFER R 2022 [facility] MAGNESIUM OXIDE 400MG TAB TAKE ONE TABLET BY MOUTH ONCE A DAY ORAL ACTIVE LETITIA STAUFFER R 2022 [facility] METFORMIN HCL 1000MG/SAXA GLIPTIN 2.5MG 24 HR TAB,SA TAKE TWO TABLETS BY MOUTH ONCE A DAY ORAL ACTIVE LETITIA STAUFFER R 2022 [facility] METHYLPREDN ISOLONE (methylpred nisolone), 4 MG, TAB DS PK, ORAL, [facility] [employer] [facility], 21 ea. DOSE-PACK Active [id number] 2023 21 Pharmac y Data Trans[facility] tion Service Facilit y PANTOPRAZOL E NA 40MG TAB,EC TAKE ONE TABLET BY MOUTH EVERY MORNING ORAL ACTIVE YOKASTA BOOKER MD 2015 [facility] PREGABALIN (pregabalin ), 100 MG, CAPSULE, ORAL, [facility]ANE [facility]ARM[facility], 90 ea. BOTTLE Cancele d [id number] : 2023 0 Pharmac y Data Transac tion Service Facilit y PREGABALIN 75MG CAP,ORAL TAKE 1 CAPSULE BY MOUTH AT BEDTIME ORAL ACTIVE LETITIA STAUFFER R 2021 [facility] SOTALOL TAB TAKE BY MOUTH TWICE A DAY ORAL ACTIVE LETITIA STAUFFER R 2021 [facility] TAMSULOSIN HCL 0.4MG CAP TAKE 1 CAPSULE BY MOUTH EVERY EVENING ORAL ACTIVE YOKASTA BOOKER MD 2018 [facility] Allergies, Adverse Reactions, Alerts Combined list of allergies from Department of Defense and Veterans Affairs facilities. It does not include entries that were removed or entered in error. Substance Category Reaction Severity Reaction type Status Date Reported Comments Source METOCLOPRAMID E Drug allergy (disorder) Renal failure syndrome active 3 [facility] PENICILLIN Propensity to adverse reactions to drug (finding) active 7 [facility] PENICILLINS Drug allergy (disorder) active 7 [facility] REGLAN Propensity to adverse reactions to drug (finding) Renal failure syndrome active 3 [facility] Propensity to adverse reactions to drug (finding) active 7 [facility] Immunizations Combined list of available immunizations from the Department of Defense and Veterans Affairs facilities. Immunization Series Date Given Administered By Site Reaction Lot Number CVX Code Drug [employer] Status Comments Source COVID-19 (MODERNA), MRNA, LNP-S, PF, 50 MCG/0.5 ML (AGES 12+ YEARS) 2 2023 312 complet ed HISTORICA L INFORMATI ON - FROM OTHER [facility] INFLUENZA, ADJUVANTED, TRIVALENT, PF 6 2023 168 complet ed HISTORICA L INFORMATI ON - FROM OTHER [facility], [facility] N ZOSTER RECOMBINANT 2 2022 RACHEL WOODRUFF RIGHT DELTO ID [id number] 187 complet ed [facility]MIN[facility] AT [facility] ZOSTER RECOMBINANT 2022 KELVIN LEVY RIGHT DELTO ID [id number] 187 complet ed [facility] AT [facility] INFLUENZA, UNSPECIFIED FORMULATION 2021 88 complet ed HISTORICA L INFORMATI ON - [facility] COVID-19 (PFIZER), MRNA, LNP-S, BIVALENT, PF, 30 MCG/0.3 ML DOSE 1 2021 300 complet ed HISTORICA L INFORMATI ON - FROM OTHER [facility], [facility] INFLUENZA VACCINE, QUADRIVALENT, ADJUVANTED 5 2021 205 complet ed HISTORICA L INFORMATI ON - FROM OTHER [facility] N COVID-19 (PFIZER), MRNA, LNP-S, PF, 30 MCG/0.3 ML DOSE, DAWN-SUCROSE (AGES 12+ YEARS) 4 2021 217 complet ed HISTORICA L INFORMATI ON - FROM OTHER [facility] N INFLUENZA VACCINE, QUADRIVALENT, ADJUVANTED 4 2020 205 complet ed HISTORICA L INFORMATI ON - FROM OTHER REGISTRY, [facility] DIV[facility] N COVID-19 (PFIZER), MRNA, LNP-S, PF, 30 MCG/0.3 ML DOSE 3 2020 208 complet ed HISTORICA L INFORMATI ON - FROM OTHER [facility], [facility] COVID-19 ([facility]), MRNA, LNP-S, PF, 30 MCG/0.3 ML DOSE 2 2020 208 complet ed HISTORICA L INFORMATI ON - FROM OTHER REGISTRY, [facility] N COVID-19 ([facility]), MRNA, LNP-S, PF, 30 MCG/0.3 ML DOSE 1 2020 208 complet ed HISTORICA L INFORMATI ON - FROM OTHER [facility], [facility] DIV[facility] N INFLUENZA, UNSPECIFIED FORMULATION 2019 88 complet ed [facility] N INFLUENZA, RECOMBINANT, QUADRIVALENT, INJECTABLE, PRESERVATIVE FREE 3 2019 185 complet ed HISTORICA L INFORMATI ON - FROM OTHER REGISTRY, [facility] N HEP A-HEP B 1 2019 104 complet ed HISTORICA L INFORMATI ON - FROM OTHER [facility], [facility] N TDAP 1 2019 115 complet ed HISTORICA L INFORMATI ON - FROM OTHER [facility], [facility] N INFLUENZA, HIGH DOSE SEASONAL 2 2018 135 complet ed HISTORICA L INFORMATI ON - FROM OTHER REGISTRY, [facility] INFLUENZA, UNSPECIFIED FORMULATION [address] [facility] N INFLUENZA, INJECTABLE, QUADRIVALENT, PRESERVATIVE FREE 1 2018 150 complet ed HISTORICA L INFORMATI ON - FROM OTHER [facility], [facility] INFLUENZA, UNSPECIFIED FORMULATION [address] [facility] N PNEUMOCOCCAL POLYSACCHARID E PPV23 [address] [facility] N INFLUENZA, UNSPECIFIED FORMULATION 2016 88 complet ed I[place] S TDAP 1 2016 115 complet ed HISTORICA L INFORMATI ON - FROM OTHER REGISTRY, [facility] N PNEUMOCOCCAL CONJUGATE PCV 13 2016 133 complet ed by non va pcp [facility] INFLUENZA, UNSPECIFIED FORMULATION [address] [facility] INFLUENZA, HIGH DOSE SEASONAL 1 2015 135 complet ed HISTORICA L INFORMATI ON - FROM OTHER REGISTRY, [facility] N PNEUMOCOCCAL CONJUGATE PCV 13 1 2015 133 complet ed HISTORICA L INFORMATI ON - FROM OTHER REGISTRY, [facility] N TDAP [address] [facility] N Results Combined list of recent chemistry, hematology and other laboratory results from Department of Defense and Veterans Affairs, ranging from 15 months to all on record, depending upon the facility. Order Name Results Value Reference Range Date Interpretation Specimen Comments Source BASIC METABOLIC PANEL CREATININE [MASS/VOLUM E] IN SERUM OR PLASMA 1.29 mg/dL 0.7 - 1.3 11/06 Specimen Type: PLASMA Comment: No hemolysis noted. Ordering Provider: CHRISSY RENAE MM Report Released Date/Time: Nov 07, 2023 10:50 AM Reporting Lab: [address] [address] Performing Lab: [address] [address] [facility] BASIC METABOLIC PANEL UREA NITROGEN [MASS/VOLUM E] IN SERUM OR PLASMA 17.7 mg/dL 9.0 - 25.0 11/06 Specimen Type: PLASMA Comment: No hemolysis noted. Ordering Provider: CHRISSY RENAE MM Report Released Date/Time: Nov 07, 2023 10:50 AM Reporting Lab: [address] [address] Performing Lab: [address] [address] [facility] BASIC METABOLIC PANEL GLUCOSE [MASS/VOLUM E] IN SERUM OR PLASMA 136 mg/dL 72 - 99 11/06 H Specimen Type: PLASMA Comment: No hemolysis noted. Ordering Provider: CHRISSY RENAE MM Report Released Date/Time: Nov 07, 2023 10:50 AM Reporting Lab: [address] [address] Performing Lab: [address] [address] [facility] BASIC METABOLIC PANEL SODIUM [MOLES/VOLU ME] IN SERUM OR PLASMA 138 meq/L 136 - 145 11/06 Specimen Type: PLASMA Comment: No hemolysis noted. Ordering Provider: CHRISSY RENAE MM Report Released Date/Time: Nov 07, 2023 10:50 AM Reporting Lab: [address] [address] Performing Lab: [address] [address] [facility] BASIC METABOLIC PANEL POTASSIUM [MOLES/VOLU ME] IN SERUM OR PLASMA 3.5 meq/L 3.5 - 5 11/06 Specimen Type: PLASMA Comment: No hemolysis noted. Ordering Provider: CHRISSY RENAE MM Report Released Date/Time: Nov 07, 2023 10:50 AM Reporting Lab: [address] [address] Performing Lab: [address] [address] [facility] BASIC METABOLIC PANEL CHLORIDE [MOLES/VOLU ME] IN SERUM OR PLASMA 103 meq/L 98 - 107 11/06 Specimen Type: PLASMA Comment: No hemolysis noted. Ordering Provider: CHRISSY RENAE MM Report Released Date/Time: Nov 07, 2023 10:50 AM Reporting Lab: [address] [address] Performing Lab: [address] [address] [facility] BASIC METABOLIC PANEL CARBON DIOXIDE, TOTAL [MOLES/VOLU ME] IN SERUM OR PLASMA 25 meq/L 22 - 31 11/06 Specimen Type: PLASMA Comment: No hemolysis noted. Ordering Provider: CHRISSY RENAE MM Report Released Date/Time: Nov 07, 2023 10:50 AM Reporting Lab: [place] [address] Performing Lab: [address] BASIC METABOLIC PANEL CALCIUM [MASS/VOLUM E] IN SERUM OR PLASMA 10.2 mg/dL 8.4 - 10.4 11/06 Specimen Type: PLASMA Comment: No hemolysis noted. Ordering Provider: CHRISSY RENAE MM Report Released Date/Time: Nov 07, 2023 10:50 AM Reporting Lab: [place] [phone] Performing Lab: [place] [phone] BASIC METABOLIC PANEL GLOMERULAR FILTRATION RATE/1.73 SQ M.PREDICTED [VOLUME RATE/AREA] IN SERUM, PLASMA OR BLOOD BY CREATININE- BASED FORMULA (CKD-EPI 2020) 58.2 60 11/06 Specimen Type: PLASMA Comment: No hemolysis noted. Ordering Provider: CHRISSY RENAE MM Report Released Date/Time: Nov 07, 2023 10:50 AM Reporting Lab: [place] [phone] Performing Lab: [place] [address] [facility] [phone] CBC LEUKOCYTES [#/VOLUME] IN BLOOD BY AUTOMATED COUNT 4.7 10*3/u L 3.6 - 11.2 11/06 Specimen Type: BLOOD No comment entered. Ordering Provider: CHRISSY RENAE MM Report Released Date/Time: Nov 07, 2023 10:50 AM Reporting Lab: [place] [address] [address] Performing Lab: [address] [address] [facility] CBC ERYTHROCYTE S [#/VOLUME] IN BLOOD BY AUTOMATED COUNT 4.60 10*6/u L 4.10 - 5.70 11/06 Specimen Type: BLOOD No comment entered. Ordering Provider: CHRISSY RENAE MM Report Released Date/Time: Nov 07, 2023 10:50 AM Reporting Lab: [place] [phone] Performing Lab: [place] [phone] CBC HEMOGLOBIN [MASS/VOLUM E] IN BLOOD 12.2 g/dL 13.1 - 16.8 11/06 L Specimen Type: BLOOD No comment entered. Ordering Provider: CHRISSY RENAE MM Report Released Date/Time: Nov 07, 2023 10:50 AM Reporting Lab: [place] [phone] Performing Lab: [place] [phone] CBC HEMATOCRIT [VOLUME FRACTION] OF BLOOD 37.8 38.2 - 48.4 11/06 L Specimen Type: BLOOD No comment entered. Ordering Provider: CHRISSY RENAE MM Report Released Date/Time: Nov 07, 2023 10:50 AM Reporting Lab: [place] [phone] Performing Lab: [place] [phone] CBC MCV [ENTITIC VOLUME] BY AUTOMATED COUNT 82.2 fL 80.0 - 100.0 11/06 Specimen Type: BLOOD No comment entered. Ordering Provider: CHRISSY RENAE MM Report Released Date/Time: Nov 07, 2023 10:50 AM Reporting Lab: [address] [place] [address] Performing Lab: [address] [address] [facility] CBC MCH [ENTITIC MASS] BY AUTOMATED COUNT 26.5 pg 27.0 - 34.0 11/06 L Specimen Type: BLOOD No comment entered. Ordering Provider: CHRISSY RENAE MM Report Released Date/Time: Nov 07, 2023 10:50 AM Reporting Lab: [address] [address] Performing Lab: [address] [phone] CBC MCHC [MASS/VOLUM E] BY AUTOMATED COUNT 32.3 g/dL 33.0 - 36.0 11/06 L Specimen Type: BLOOD No comment entered. Ordering Provider: CHRISSY RENAE MM Report Released Date/Time: Nov 07, 2023 10:50 AM Reporting Lab: [address] [phone] Performing Lab: [address] [phone] [place] [address] CBC PLATELETS [#/VOLUME] IN BLOOD BY AUTOMATED COUNT 340 10*3/u L 150 - 400 11/06 Specimen Type: BLOOD No comment entered. Ordering Provider: CHRISSY RENAE MM Report Released Date/Time: Nov 07, 2023 10:50 AM Reporting Lab: [address] [address] Performing Lab: [address] [address] [facility] CBC PLATELET MEAN VOLUME [ENTITIC VOLUME] IN BLOOD BY AUTOMATED COUNT 8.6 fL 7.5 - 11.2 11/06 Specimen Type: BLOOD No comment entered. Ordering Provider: CHRISSY RENAE MM Report Released Date/Time: Nov 07, 2023 10:50 AM Reporting Lab: [place] [id number] [facility] [phone] Performing Lab: [facility] [address] [facility] [address] [facility] CBC ERYTHROCYTE DISTRIBUTIO N WIDTH [RATIO] BY AUTOMATED COUNT 16.4 11.8 - 15.1 11/06 H Specimen Type: BLOOD No comment entered. Ordering Provider: CHRISSY RENAE MM Report Released Date/Time: Nov 07, 2023 10:50 AM Reporting Lab: [facility] [address] [facility] [address] Performing Lab: [address] [address] [facility] CBC LYMPHOCYTES /100 LEUKOCYTES IN BLOOD BY AUTOMATED COUNT 37 11/06 Specimen Type: BLOOD No comment entered. Ordering Provider: CHRISSY RENAE MM Report Released Date/Time: Nov 07, 2023 10:50 AM Reporting Lab: [facility] [address] [facility] [address] Performing Lab: [facility] [address] [facility] [address] [facility] CBC MONOCYTES/1 00 LEUKOCYTES IN BLOOD BY AUTOMATED COUNT 8 11/06 Specimen Type: BLOOD No comment entered. Ordering Provider: CHRISSY RENAE MM Report Released Date/Time: Nov 07, 2023 10:50 AM Reporting Lab: [address] [address] Performing Lab: [facility] [address] [facility] [address] [facility] CBC NEUTROPHILS /100 LEUKOCYTES IN BLOOD BY AUTOMATED COUNT 51 11/06 Specimen Type: BLOOD No comment entered. Ordering Provider: CHRISSY RENAE MM Report Released Date/Time: Nov 07, 2023 10:50 AM Reporting Lab: [facility] [address] [facility] [address] Performing Lab: [facility] [address] [facility] CBC EOSINOPHILS /100 LEUKOCYTES IN BLOOD BY AUTOMATED COUNT 3 11/06 Specimen Type: BLOOD No comment entered. Ordering Provider: CHRISSY RENAE MM Report Released Date/Time: Nov 07, 2023 10:50 AM Reporting Lab: [address] [address] Performing Lab: [address] [address] [facility] CBC BASOPHILS/1 00 LEUKOCYTES IN BLOOD BY AUTOMATED COUNT 1 11/06 Specimen Type: BLOOD No comment entered. Ordering Provider: CHRISSY RENAE MM Report Released Date/Time: Nov 07, 2023 10:50 AM Reporting Lab: [address] [address] Performing Lab: [address] [address] [facility] CBC LYMPHOCYTES [#/VOLUME] IN BLOOD BY AUTOMATED COUNT 1.74 10*3/u L 0.77 - 4.50 11/06 Specimen Type: BLOOD No comment entered. Ordering Provider: CHRISSY ERNAE MM Report Released Date/Time: Nov 07, 2023 10:50 AM Reporting Lab: [address] [address] Performing Lab: [address] [address] [facility] CBC MONOCYTES [#/VOLUME] IN BLOOD BY AUTOMATED COUNT 0.39 10*3/u L 0.19 - 0.80 11/06 Specimen Type: BLOOD No comment entered. Ordering Provider: CHRISSY RENAE MM Report Released Date/Time: Nov 07, 2023 10:50 AM Reporting Lab: [address] [address] Performing Lab: [address] [address] [facility] CBC NEUTROPHILS [#/VOLUME] IN BLOOD BY AUTOMATED COUNT 2.35 10*3/u L 2.10 - 8.00 11/06 Specimen Type: BLOOD No comment entered. Ordering Provider: CHRISSY RENAE MM Report Released Date/Time: Nov 07, 2023 10:50 AM Reporting Lab: [place] [phone] Performing Lab: [place] [phone] CBC EOSINOPHILS [#/VOLUME] IN BLOOD BY AUTOMATED COUNT 0.12 10*3/u L 0.00 - 0.60 11/06 Specimen Type: BLOOD No comment entered. Ordering Provider: CHRISSY RENAE MM Report Released Date/Time: Nov 07, 2023 10:50 AM Reporting Lab: [place] [phone] Performing Lab: [place] [phone] CBC BASOPHILS [#/VOLUME] IN BLOOD BY AUTOMATED COUNT 0.04 10*3/u L 0.00 - 0.20 11/06 Specimen Type: BLOOD No comment entered. Ordering Provider: CHRISSY RENAE MM Report Released Date/Time: Nov 07, 2023 10:50 AM Reporting Lab: [place] [phone] Performing Lab: [place] [phone] GLUCOSE,BL OOD-poct (STL) GLUCOSE [MASS/VOLUM E] IN BLOOD BY AUTOMATED TEST STRIP 112 mg/dL 72 - 99 10/03 H Specimen Type: BLOOD Comment: Test Performed by: [id number] Meter #: [id number] Ordering Provider: ELIJAH STAUFFER Report Released Date/Time: October 03, 2022 04:32 PM Reporting Lab: [address] [address] Performing Lab: [facility] [address] [facility] [address] [facility] Vital Signs Combined list of inpatient and outpatient Vital Signs from Department of Defense and Veterans Affairs, ranging from 12 months to all on record, depending upon the facility. Vital Sign Value Date Comments Source SYSTOLIC BLOOD PRESSURE 126 09/01/2024 15:01:00 [facility] DIASTOLIC BLOOD PRESSURE 79 09/01/2024 15:01:00 [facility] PULSE OXIMETRY 98 09/01/2024 15:01:00 S Billie [facility] WEIGHT 171.6 09/01/2024 15:01:00 [facility] BMI 22 kg/m2 09/01/2024 15:01:00 [facility] PAIN 8 09/01/2024 15:01:00 [facility] TEMPERATURE 97.5 09/01/2024 15:01:00 [facility] PULSE 76 09/01/2024 15:01:00 [facility] RESPIRATION 16 09/01/2024 15:01:00 [facility] SYSTOLIC BLOOD PRESSURE 132 01/16/2024 11:24:44 [facility] DIASTOLIC BLOOD PRESSURE 78 01/16/2024 11:24:44 [facility] PULSE OXIMETRY 97 01/16/2024 11:24:44 S Billie [facility] WEIGHT 176 01/16/2024 11:24:44 [facility] BMI 23 kg/m2 01/16/2024 11:24:44 [facility] PAIN 8 01/16/2024 11:24:44 [facility] HEIGHT 74 01/16/2024 11:24:44 [facility] TEMPERATURE 97.8 01/16/2024 11:24:44 [facility] PULSE 85 01/16/2024 11:24:44 [facility] RESPIRATION 18 01/16/2024 11:24:44 [facility] SYSTOLIC BLOOD PRESSURE 150 11/07/2023 10:14:21 [facility] DIASTOLIC BLOOD PRESSURE 92 11/07/2023 10:14:21 [facility] PULSE OXIMETRY 98 11/07/2023 10:14:21 S Billie [facility] WEIGHT 159.7 11/07/2023 10:14:21 ST Margarita [facility] BMI 21 kg/m2 11/07/2023 10:14:21 [facility] Margarita [facility] PAIN 7 11/07/2023 10:14:21 [facility] TEMPERATURE 97.6 11/07/2023 10:14:21 [facility] PULSE 100 11/07/2023 10:14:21 [facility] RESPIRATION 16 11/07/2023 10:14:21 [facility] SYSTOLIC BLOOD PRESSURE 151 10/08/2023 10:23:11 [facility] DIASTOLIC BLOOD PRESSURE 83 10/08/2023 10:23:11 [facility] PULSE OXIMETRY 100 10/08/2023 10:23:11 S Billie [facility] WEIGHT 176.8 10/08/2023 10:23:11 [facility] BMI 23 kg/m2 10/08/2023 10:23:11 [facility] PAIN 8 10/08/2023 10:23:11 [facility] TEMPERATURE 98.3 10/08/2023 10:23:11 [facility] PULSE 96 10/08/2023 10:23:11 [facility] RESPIRATION 18 10/08/2023 10:23:11 [facility] Encounters Combined list of: 1) Encounters from Department of Veterans Affairs facilities going backup to the last 18 months, not all VA inpatient encounters are included; 2) Encounters from the Department of Defense facilities going backup to 280 months. Location Location Details Encounter Type Encounter Number Reason For Visit Attending Provider ADM Date DC Date Status Disposition Source [facility] HC PRO PHONE CALL 11-20 MIN [id number] Diagnos is: ICD-10- CM I63.9 Cerebra l infarct ion, unspeci fied ANA,CAR A A 04/03 [facility] ASSMT/REAS SESSMENT [id number] Diagnos is: ICD-10- CM M06.9 Rheumat oid arthrit is, unspeci DIONICIO Bolanos 04/12 [facility] Outpatient Encounter [id number] Jc TREVINO 04/16 [facility] Outpatient Encounter [id number] 04/17 [facility] ASSMT/REAS SESSMENT [id number] [id number] Diagnos is: ICD-10- CM M25.562 Pain in left knee JESUS HERNANDEZ L 04/22 [facility] Outpatient Encounter [id number] 3 EM PETIT 04/25 [facility] Outpatient Encounter [id number] 04/29 [facility] PROGRAM INTAKE ASSESSMENT [id number] [id number] 9 Diagnos is: ICD-10- CM M25.562 Pain in left knee MANDORCA,L FAISAL L 04/29 [facility] Outpatient Encounter [id number] 05/14 [facility] Outpatient Encounter [id number] 06/03 [facility] Outpatient Encounter [id number] 6 06/19 [facility] LIMIT ORAL EVAL PROBLM FOCUS [id number] [id number] 4 Diagnos is: ICD-10- CM K08.409 Partial loss of teeth, unspeci fied cause, unspeci fied class DAE SO 06/21 [facility] Outpatient Encounter [id number] [id number] 1 ALAYNA ROMAN 06/21 [facility] Outpatient Encounter [id number] 6 06/25 [facility] Outpatient Encounter [id number] [id number] 3 06/26 [facility] Outpatient Encounter [id number] [id number] 3 06/26 [facility] Outpatient Encounter [id number] 8 07/05 [facility] HC PRO PHONE CALL 5-10 MIN [id number] [id number] 9 Diagnos is: ICD-10- CM M25.562 Pain in left knee GABI PEREZ A 07/10 [facility] Outpatient Encounter [id number] 7 07/17 [facility] HC PRO PHONE CALL 11-20 MIN [id number] [id number] 4 Diagnos is: ICD-10- CM M54.50 Low back pain, unspeci fied GABI PEREZ A 07/23 [facility] HC PRO PHONE CALL 11-20 MIN [id number] [id number] 5 Diagnos is: ICD-10- CM M25.562 Pain in left knee MARYSTA CY L 07/23 [facility] Outpatient Encounter [id number] MARYSTA CY L 07/23 [facility] Outpatient Encounter [id number] [id number] 4 07/25 [facility] HC PRO PHONE CALL 21-30 MIN [id number] [id number] 4 Diagnos is: ICD-10- CM M25.562 Pain in left knee MARYSTA CY L 07/28 [facility] PT EDUCATION NOC INDIVID [id number] [id number] 8 Diagnos is: ICD-10- CM I63.9 Cerebra l infarct ion, unspeci fied THOMPSON EPPERSON M 07/29 [facility] PROGRAM INTAKE ASSESSMENT [id number] [id number] 6 Diagnos is: ICD-10- CM M25.562 Pain in left knee MANDORCA,L FAISAL L 08/01 [facility] Outpatient Encounter [id number] 1 08/04 [facility] Outpatient Encounter [id number] 4 08/18 [facility] Outpatient Encounter [id number] [id number] 2 VIOLETT,RE NEE D 08/20 [facility] HC PRO PHONE CALL 11-20 MIN [id number] Diagnos is: ICD-10- CM M54.50 Low back pain, unspeci fied POORNIMASHAYNADomenic A L 08/20 [facility] Outpatient Encounter [id number] [id number] EM PETIT L 08/25 [facility] HC PRO PHONE CALL 21-30 MIN [id number]. [id number] 3 Diagnos is: ICD-10- CM I63.9 Cerebra l infarct ion, unspeci fied ANA,CAR A A 08/27 [facility] PROGRAM INTAKE ASSESSMENT [id number] 8 Diagnos is: ICD-10- CM M06.9 Rheumat oid arthrit is, unspeci fied Margarita VENEGAS FAISAL L 08/28 [facility] Outpatient Encounter [id number] 8 VIOLETT,RE NEE D 09/02 [facility] REMOVABLE PROSTHODON TIC PROC 91311-9 [id number] Diagnos is: ICD-10- CM K08.409 Partial loss of teeth, unspeci fied cause, unspeci fied class DAE SO 09/02 [facility] HC PRO PHONE CALL 21-30 MIN [id number] [id number] 0 Diagnos is: ICD-10- CM M54.50 Low back pain, unspeci fied LASHA NOGUERA L 09/02 [facility] Outpatient Encounter [id number] [id number] 2 LASHA NOGUERA L 09/02 [facility] PRO PHONE CALL 5-10 MIN [id number] [id number] 6 Diagnos is: ICD-10- CM I63.9 Cerebra l infarct ion, unspeci fied ANA,CAR A A 09/17 [facility] Outpatient Encounter [id number] [id number] 09/17 [facility] PRO PHONE CALL 21-30 MIN [id number] [id number] 1 Diagnos is: ICD-10- CM I63.9 Cerebra l infarct ion, unspeci fied ANA,CAR A A 09/19 [facility] Outpatient Encounter [id number] [id number] 0 TIFFANY IRVIN 09/22 [facility] REMOVABLE PROSTHODON TIC PROC [id number] [id number] 5 Diagnos is: ICD-10- CM K08.409 Partial loss of teeth, unspeci fied cause, unspeci fied class DAE SO 09/25 [facility] Outpatient Encounter [id number] [id number] 3 10/01 [facility] Outpatient Encounter [id number] [id number] ESTHER LEVY 10/02 [facility] Outpatient Encounter [id number]. [id number] 10/07 [facility] Outpatient Encounter [id number] [id number] Diagnos is: ICD-10- CM Z00.00 Encntr for general adult medical exam w/o abnorma l finding s ELIJAH STAUFFER BY R 10/07 [facility] REMOVABLE PROSTHODON TIC PROC [id number] [id number] Diagnos is: ICD-10- CM K08.409 Partial loss of teeth, unspeci fied cause, unspeci fied class DAE SO 10/07 [facility] Outpatient Encounter [id number] [id number] 0 10/07 [facility] Outpatient Encounter [id number] [id number] 0 10/07 [facility] Outpatient Encounter [id number] [id number] 4 10/09 [facility] HC PRO PHONE CALL 21-30 MIN [id number] [id number] 9 Diagnos is: ICD-10- CM I63.9 Cerebra l infarct ion, unspeci fied ANACAR A A 10/20 [facility] REMOV[facility] PROSTHODON TIC PROC [id number] [id number] 9 Diagnos is: ICD-10- CM K08.409 Partial loss of teeth, unspeci fied cause, unspeci fied class DAE SO 10/28 [facility] Outpatient Encounter [id number] [id number] ELIJAH STAUFFER BY Sana 11/04 [facility] OFFICE O/P NEW LOW 30 MIN [id number] [id number] 7 Diagnos is: ICD-10- CM R21 Rash and other nonspec ific skin eruptio n TATA LUU I A 11/06 [facility] Outpatient Encounter [id number] ELIJAH STAUFFER BY Sana 11/06 [facility] Outpatient Encounter [id number] [id number] 5 11/06 [facility] Outpatient Encounter [id number] [id number] 7 11/06 [facility] Outpatient Encounter [id number] [id number] Diagnos is: ICD-10- CM Z04.89 Encount er for examina tion and observa tion for oth reasons CARLOS MINOR IEMargarita P 11/06 [facility] REMOVABLE PROSTHODON TIC PROC [id number] [id number] 9 Diagnos is: ICD-10- CM K08.409 Partial loss of teeth, unspeci fied cause, unspeci fied class DAE SO 11/17 [facility] Outpatient Encounter [id number] [id number] EM PETIT L 11/18 [facility] Outpatient Encounter [id number] [id number] 2 EM PETIT L 11/20 [facility] [place] [id number] [id number] 8 Diagnos is: ICD-10- CM K08.409 Partial loss of teeth, unspeci fied cause, unspeci fied class DAE SO 12/01 [facility] THERAPEUTI C EXERCISES [id number] [id number] Diagnos is: ICD-10- CM M25.512 Pain in left shoulde r CAROLINA HOWELL 12/04 [facility] Outpatient Encounter [id number] [id number] SHERRY GONGORA 12/04 [facility] Outpatient Encounter [id number] [id number] EM PETIT L 12/04 [facility] OFFICE O/P NEW MOD 45 MIN [id number] [id number] 7 Diagnos is: ICD-10- CM I48.0 Paroxys mal atrial fibrill ation LOUISE CUBA 12/09 [facility] Outpatient Encounter [id number] [id number] 3 PETIT,EM ELYN L 12/10 [facility] Outpatient Encounter [id number] [id number] PETIT,EV ELYN L 12/10 [facility] Outpatient Encounter [id number] [id number] 1 12/11 [facility] REMOVABLE PROSTHODON TIC PROC [id number] [id number] 3 Diagnos is: ICD-10- CM K08.409 Partial loss of teeth, unspeci fied cause, unspeci fied class DAE SO 12/19 [facility] Outpatient Encounter [id number] [id number] 8 12/22 [facility] Outpatient Encounter [id number] [id number] 12/23 [facility] Outpatient Encounter [id number] [id number] 12/29 [facility] Outpatient Encounter [id number] [id number] 8 12/29 [facility] PT EDUCATION NOC INDIVID [id number] [id number] 2 Diagnos is: ICD-10- CM I63.9 Cerebra l infarct ion, unspeci fied ANA,CAR A A 01/13 [facility] OFFICE O/P EST SF 10 MIN [id number] [id number] 4 Diagnos is: ICD-10- CM R21 Rash and other nonspec ific skin eruptio Lucia Farooq E 01/15 [facility] REMOVABLE PROSTHODON TIC PROC [id number] [id number] 0 Diagnos is: ICD-10- CM K08.409 Partial loss of teeth, unspeci fied cause, unspeci fied class DAE SO 01/16 [facility] Outpatient Encounter [id number] ME PETIT 01/16 [facility] Outpatient Encounter [id number] 7 EM PETIT 01/20 [facility] Outpatient Encounter [id number] 0 01/23 [facility] Outpatient Encounter [id number] 9 02/03 [facility] REMOVABLE PROSTHODON TIC PROC [id number] 7 Diagnos is: ICD-10- CM K08.409 Partial loss of teeth, unspeci fied cause, unspeci fied class DAE SO 02/09 [facility] Outpatient Encounter [id number] TIFFANY IRVIN 02/20 [facility] THERAPEUTI C EXERCISES [id number] [id number] Diagnos is: ICD-10- CM M25.569 Pain in unspeci fied knee MINA SHER 02/27 [facility] Outpatient Encounter [id number] 1 03/11 [facility] Outpatient Encounter [id number] 03/11 [facility] Outpatient Encounter [id number] [id number] 0 03/16 [facility] Outpatient Encounter [id number] [id number] 0 03/16 [facility] Outpatient Encounter [id number] [id number] RAMIREZSAMSON GAVIRIAM Heath 03/30 [facility] Outpatient Encounter [id number] [id number] 0 ANA,GABI Lu A 04/01 [facility] Outpatient Encounter [id number] [id number] 1 04/03 [facility] PT EDUCATION NOC INDIVID [id number] [id number] Diagnos is: ICD-10- CM I63.9 Cerebra l infarct ion, unspeci fied ANAGABI Lu A 04/27 [facility] Outpatient Encounter [id number] [id number] PETIT,EM Avila 04/29 [facility] Outpatient Encounter [id number] [id number] 2 05/25 [facility] Outpatient Encounter [id number] [id number] 3 06/10 [facility] Outpatient Encounter [id number] [id number] 06/16 [facility] Outpatient Encounter [id number] [id number] 2 06/16 [facility] Outpatient Encounter [id number] [id number] 4 07/14 [facility] Outpatient Encounter [id number] [id number] 07/22 [facility] Outpatient Encounter [id number] [id number] 4 08/06 [facility] HLTH [facility] ASSMT/REAS SESSMENT [id number] [id number] Diagnos is: ICD-10- CM I63.9 Cerebra l infarct ion, unspeci fied ANA,CAR A A 09/01 [facility] Outpatient Encounter [id number] [id number] 09/01 [facility] Outpatient Encounter [id number] [id number] 5 09/01 [facility] OFFICE O/P EST HI 40 MIN [id number] [id number] Diagnos is: ICD-10- CM I48.0 Paroxys mal atrial fibrill LOUISE Fuentes 09/01 [facility] Outpatient Encounter [id number] [id number] 6 09/10 [facility] Outpatient Encounter [id number] [id number] 09/28 [facility] Social History Combined list of available smoking, tobacco, and other social history from Department of Defense and Veterans Affairs facilities. Social History Type Response Date Comment [facility] e Tobacco smoking status NHIS AR-TOBACCO NEVER USED 10/08/2023 [facility] History of tobacco use AR-TOBACCO NEVER USED 03/30/2022 [facility] History of tobacco use AR-TOBACCO NEVER USED 05/26/2020 [facility] History of tobacco use AR-TOBACCO NEVER USED 07/30/2018 [facility] History of tobacco use LIFETIME NON-USER OF TOBACCO 08/01/2016 [facility] History of tobacco use LIFETIME NON-USER OF TOBACCO 07/25/2015 [facility] This section is an empty social history section. [facility] Plan of Care List of future care activities from Department of Veterans [facility] facilities. Additional future care activities may be listed in the Assessment and Plan section. Date/Time Care Activity Care Activity Detail Facili ty 10/13/2024 AMBULATORY - MEDICINE AMBULATORY - MEDICI NE [facility] Advance Directives List of completed, amended, or rescinded Advance Directives on record at [facility] facilities. An actual copy of the Directive is not included. Date Advance Directive Provider Source 12/08/2020 ADVANCE DIRECTIVE MARYCRUZ SANABRIA [facility]
--- OUTSIDE RECORDS SUMMARY | 2024-10-02 09:03 | XMS_ITS | Clinical Summary ---
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 Gender Identity Not on file Sexual Orientation Not on file Plan of Treatment Health Maintenance Due Date Last Done Comments DTAP/TDAP/TD VACCINES (1 - Tdap) 1968 COLORECTAL SCREENING 1994 Colorectal Cancer Screening 1994 FIT-DNA Q 3 years 1994 FIT/FOBT Q 1 year 1994 Flex Sig/CT Colonography Q 5 years 1994 PNEUMOCOCCAL VACCINE 50+ YEARS (1 of 1 - PCV) 08/30/19 00 ZOSTER VACCINE (1 of 2) 08/30/1999 INFLUENZA VACCINE (#1) 2023 RSV VACCINE (60+ or ) (1 - 1-dose 75+ series) 2024 Additional Health Concerns Infection Onset Date Last Indicated MRSA Comment:02/2014 L knee, 04/2014 nares, left knee and blood 02/17/2014 02/17/2014 Insurance VERONICA SADLER [id number] [facility] [employer] Care Teams Cad Operator Relationship Specialty Start Date End Date Maxim Martínez MD PCP - General 01/14/18
--- OUTSIDE RECORDS SUMMARY | 2024-10-02 09:03 | XMS_ITS | Encounter Summary ---
Author Organization [facility] Address 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
--- OUTSIDE RECORDS SUMMARY | 2024-10-02 09:03 | XMS_ITS | Encounter Summary ---
Author Organization [facility] Address 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 Gender Identity Not on file Sexual Orientation Not on file documented as of this encounter Plan of Treatment Not on file documented as of this encounter Visit Diagnoses Diagnosis Unspecified hemorrhoids without mention of complication- Primary documented in this encounter Additional Health Concerns Infection Onset Date Last Indicated Resolved Time MRSA Comment:02/2014 L knee, 04/2014 nares, left knee and blood 02/17/2014 02/17/2014 documented as of this encounter Care Teams Cardiac Catheterization Technologist Relationship Specialty Start Date End Date Maxim Martínez MD PCP - General 01/14/18 documented as of this encounter
--- OUTSIDE RECORDS SUMMARY | 2024-10-02 09:03 | XMS_ITS ---
Author Name [facility] [facility] [place] [facility] [place] Address [address] [place] [address] Care Team Providers Care Pre Assembly Wirer Name Role Phone INNA STAUFFER Primary Care Provider Unavailabl alexx Insurance Providers: All historical and current Section [...] STAND WILLI FAM Jun 03, 2018 105 [id number] [phone] Abdiel WHITLEY PATIENT ANTHEM [place] F[place] PREFERRED PROVIDER ORGANIZAT ION (PPO) FEP STAND WILLI FAM Jun 03, 2018 105 [id number] [phone] Abdiel WHITLEY PATIENT AN[place] PREFERRED PROVIDER ORGANIZAT ION (PPO) FEP STAND WILLI FAM Jun 03, 2018 105 [id number] [phone] Abdiel WHITLEY PATIENT [place] F[place] PREFERRED PROVIDER ORGANIZAT ION (PPO) FEP STAND WILLI FAM Jun 03, 2018 105 [id number] [phone] Abdiel WHITLEY PATIENT [place] FEP ([id number]) PRESCRIPT ION FEPRX May 20, 1994 [id number] Abdiel WHITLEY PATIENT MEDICARE (WNR) MEDICARE (M) PART B Aug 11, 2014 PART B [id number] Abdiel WHITLEY PATIENT MEDICARE (WNR) MEDICARE (M) PART A Aug 11, 2014 PART A [id number] [phone] Abdiel WHITLEY PATIENT Selected Encounter This section includes the information on record at [place] for the Encounter. Date/Time Encounter Type Encounter Description Reason Provider Source Dec 05, 2023 11:00 AM THERAPEUTIC EXERCISES OCCUPATIONAL THERAPY ICD-10-CM M25.512 Pain in left shoulder HORACEHARSH SYED Alexx Encounter Template Text not used by [place] Assessments - Encounter Diagnoses This section includes the primary and secondary diagnoses documented for the Encounter. Date/Time Primary/Secondary Diagnosis Diagnosis Name Provider Source Dec 17, 2023 07:59 AM PRIMARY Pain in left shoulder HORACEEBERHARSH Amezquita [facility] Plan of Treatment: Future Appointments (+ 6 months) and Future Tests (+/- 45 days) The Plan of Treatment section includes future care activities for the patient from all [place] treatmentfacilities. This section includes future appointments and future orders which are active, pending or scheduled. Future Appointments This section includes appointments that were scheduled to occur 6 months from the date of the Encounter, up to a maximum of 20 appointments. The data comes from all [place] treatment facilities. Appointment Date/Time Appointment Type Appointme nt Facility Name Dec 10, 2023 01:00 PM AMBULATORY - MEDICINE [facility] Dec 20, 2023 12:00 PM AMBULATORY - NONE [facility] Dec 23, 2023 02:00 PM AMBULATORY - REHAB MEDICIN E [facility] Jan 10, 2024 09:30 AM AMBULATORY - NONE [facility] Jan 14, 2024 10:30 AM AMBULATORY - MEDICINE [facility] Jan 16, 2024 11:00 AM AMBULATORY - SURGERY . [facility] Jan 17, 2024 12:00 PM [facility] Jan 24, 2024 11:00 AM AMBULAT[facility] E [facility] Feb 10, 2024 11:00 AM [facility] Feb 10, 2024 02:00 PM AM[facility]ORY - NONE [facility] Feb 28, 2024 11:00 AM [facility] Mar 05, 2024 10:30 AM AM[facility]ORY - NONE [facility] Mar 11, 2024 10:00 AM AMBUL[facility]ORY - NONE [facility] Mar 11, 2024 12:00 PM AMBULATORY - NONE [facility] Apr 10, 2024 08:00 AM AMBULATORY - NONE [facility] Apr 21, 2024 08:00 AM AMBULATORY - NONE [facility] Apr 22, 2024 08:30 AM AMBULATORY - NONE [facility] May 25, 2024 02:00 PM AMBULATORY - REHAB MEDICIN E [facility] Lab Results: +/- 30 days [...] Type Comment Nov 07, 2023 11:18 AM [facility] BASIC METABOLIC PANEL PLASMA Specimen Type: PLASMA Comment: No hemolysis noted. Ordering Provider: SKYLA RENAE MM Report Released Date/Time: Nov 07, 2023 10:50 AM Reporting Lab: [facility] [address] [id number] Performing Lab: [place] [id number] [facility] [facility] [address] CREATININE 1.29 mg/dL 0.7-1.3 UREA NITROGEN 17.7 mg/dL 9.0-25.0 GLUCOSE 136 mg/dL H 72-99 SODIUM 138 meq/L 136-145 POTASSIUM 3.5 meq/L 3.5-5 CHLORIDE 103 meq/L 98-107 CARBON DIOXIDE 25 meq/L 22-31 CALCIUM 10.2 mg/dL 8.4-10.4 EGFR (CKD-EPI 2020) 58.2 >60 Nov 07, 2023 11:18 AM [facility] CBC BLOOD Specimen Type: BLOOD No comment entered. Ordering Provider: SKYLA RENAE MM Report Released Date/Time: Nov 07, 2023 10:50 AM Reporting Lab: [facility] [address] [address] Performing Lab: [facility] [address] [address] WBC 4.7 10*3/uL 3.6-11.2 RBC 4.60 10*6/uL [...] 0.60 BASOPHILS, ABSOLUTE 0.04 10*3/uL 0.00-0. 20 Advance Directives: All historical and current Section Date Range: From patient's date of to the date document was created. This section includes ALL of a patient's completed or amended VA Advance and Rescinded Directives. The entries below indicate that a directive exists for the patient, but an actual copy is not included with this document. The data comes from all [place] facilities. Date Advance Directives Provider Source Dec 08, [address] [facility] Radiology Reports: +/- 30 days of [...] the Encounter. The data comes from all [place] treatment facilities. Date/Time Radiology Report Provider Source Nov 07, 2023 10:55 AM CHEST X-RAY, 2 VIE WS: SHERRI WHITLEY [id number] -[id number] M Exm Date: NOV 07, 2023@10:55 Req Phys: SKYLA RENAE MM Pat Loc: -GEN SURG II CLINIC (Req'g L Img Loc: -MAIN RADIOLOGY SUITE Service: [address] [address] (Case [id number] COMPLETE) CHEST X-RAY, 2 VIEWS (RAD Detailed) CPT:46600 Reason for Study: Pre-op evaluation Clinical History: Report Status: Verified Date Reported: NOV 07, 2023 Date Verified: NOV 07, 2023 Sharepoint Architect E-Sig:/[email or web address] [email or web address] Report: CHEST X-RAY, 2 VIEWS [id number] DATE: 11/07/2023 10:55 AM HISTORY: Pre-op evaluation. COMPARISON: None. Findings: The heart size and mediastinal shadows are normal for the provided technique. The lungs are clear. There is no pneumothorax nor pleural effusion. The bony structures are age-appropriate. Impression: No visible acute cardiopulmonary disease. Primary Interpreting Staff: PER SANDHU, Diagnostic Radiologist (Sharepoint Architect) /PER [facility] Encounter Notes: All associated encounter notes This section contains the clinical notes associated to the Encounter. Date/Time Encounter Note(s) Provider Source Dec 05, 2023 12:11 PM ADDENDUM: LOCAL TITLE: Addendum STANDARD TITLE: ADDENDUM DATE OF NOTE: DEC 05, 2023@12:11:30 ENTRY DATE: DEC 05, 2023@12:11:31 AUTHOR: HARSH SEGURA EXP COSIGNER: URGENCY: STATUS: COMPLETED Vet requesting Physical Therapy consult for Left knee pain. Also, requesting order of Size Large briefs. Thank you. /renzo/ Harsh Segura, OTR/L CLIsaiah Occupational Therapist Signed: 12/05/2023 12:13 Receipt Acknowledged By: 12/05/2023 15:50 /es/ Inna Stauffer DNP, CLOCK AND WATCH HANDS DIPPER, CHIN STRAP SEWER-C Primary Care Nurse Practitioner --- Original Document --- 12/05/23 OT CONSULT STL: Initial Occupational Therapy Note Diagnosis: Pain in left Shoulder(ICD-10-CM M25.512) Requesting Provider: Trell Stauffer Reason for request: Left shoulder pain Date of Initial Evaluation: 12/05/23 Visit #: 1 Ca or NS #: 0 Total Treatment Time: 3052-8062 15 min eval 45 min ther ex Past Medical History: 1) DIAPHRAGMATIC HERNIA 2) OSTEOARTHROS NOS-UNSPEC 3) PEPTIC ULCER NOS 4) Knee pain (SNOMED CT [id number]) 5) Type 2 diabetes mellitus 6) Benign essential hypertension 7) Rheumatoid arthritis 8) Cerebral infarction 9) Seizure 10) Atrial fibrillation 11) Gastroesophageal reflux disease 12) Peripheral nerve disease 13) Hyperlipidemia 14) Benign prostatic hyperplasia 15) Low back pain 's personal goals are: Have pain free Movement of left shoulder SUBJECTIVE: Reports left shoulder pain for over a year and getting worse, no injury Vet is A/O x 4 (name, place, time/date, situation). Vet was able to demo understanding of therapy instructions this date. No further cognitive screening was indicated. Pain: rating at best: 4/10 rating at worst:8/10 current level:4/10 relieved by: rest/heat OBJECTIVE: Mobility/Transfers: Independent ADLS: Independent IADLS: Independent Postural Control (Balance) Sitting - Static: good Sitting Dynamic: good Standing - Static: NT Standing Dynamic: NT (Good = Maintained position without loss of balance) (Fair = Unsteady but able to recover balance) (Poor = Unsteady not able to recover balance) Observation/Palpation: Paolo has bilaterally forward and IR shoulders Cervical active ROM: Flexion __ degrees, extension __ degrees, sidebend right ___ degrees, sidebend left ____ degrees, rotation right ____ degrees, rotation left ____ degrees. ----- 10/29/23 Left shoulder x-ray. Impression: Mild glenohumeral and acromioclavicular osteoarthritis. --- UE: AROM is WNL. Strength is WNL. RIGHT UE Vet reports some pain but not nearly to what the left is. ~140 flexion LEFT UE Significant decrease ROM ~90 Active flexion ~140 Passive flexion ~90 Passive ABduction 115 Active flexion s/p session Scapulo-Humeral Rhythm: _x_decreased upward rotation __scapular winging with return __scapular tipping with return Painful arc: __Yes _x_No Muscle Lengths: Pectoralis Minor: Rt: Short Lt: Short Pass. ROM: Endfeel: __Normal __Hard/Firm __Empty/open __Springy _x_Capsular Treatment: In addition to an initial occupational therapy evaluation, paolo provided with home exercise program he was able to complete within the clinic including: Paolo is unable to get into supine position due to back pain, this does limit shoulder HEP and ROM. Liliat provided with written instruction to complete 10 Reps 3 x a day Access Code: [email or web address] URL: [email or web address] Date: 12/05/2023 Prepared by: Harsh Segura Exercises - Seated Shoulder Flexion AAROM with Nitish Behind - 1 x daily - 7 x weekly - 3 sets - 10 reps - Seated Shoulder Flexion AAROM with Dowel - 1 x daily - 7 x weekly - 3 sets - 10 reps - Seated Shoulder Flexion Extension AAROM with Dowel into Wall - 1 x daily - 7 x weekly - 3 sets - 10 reps - Standing Scapular Retraction - 1 x daily - 7 x weekly - 3 sets - 10 reps - Seated Shoulder Flexion Towel Slide at Table Top - 1 x daily - 7 x weekly - 3 sets - 10 reps Equipment/Instructions: Issued/Ordered Nitish TENS Unit with electrodes. [employer] [place] was ready to learn and demonstrated an understanding of instructions given on Role of OT, 1:1 instruction in equipment issued and/or home exercise program as noted above. Assessment: Pt is a 73 year old male with chief complaint of left shoulder pain, imaging shows, Mild glenohumeral and acromioclavicular osteoarthritis . This is limiting his ability to participate in his daily activities, including his ability to raise his arm overhead, lift objects. Objectively, patient demonstrates limited and painful shoulder overhead range of motion, and decreased right shoulder rotator cuff strength. Patient will benefit from a skilled occupational therapy intervention to address the above impairments, progress towards goals, and improve current level of function. Occupational Profile and History [] Brief (low) [x] Expanded (moderate) [] Extensive (high) Performance deficits identified: [] ADLs [] IADLs [x] Functional mobility [x] Range of motion [] Muscle Strength [] Functional Endurance [] Functional Balance [] Fine motor coordination [] Adaptive equipment needs [] Cognition [] Vision [] Coping skills [] Interpersonal interaction [] Impulse control [] Other (please specify: ) Tee: 1-3 performance deficits = Low complexity 3-5 performance deficits = moderate complexity 5 or more performance deficits = high complexity Level of Clinical Decision Making [] problem-focused assessment [x] detailed assessment [] comprehensive assessment --Therefore, from the findings above in [facility] Occupational Profile/History, Performance Deficits and level of clinical decision making, the OT Evaluation level of complexity of this patient was: [] Low [x] Moderate [] High Barriers to achieving goals: Pain PLAN: Vet to f/u in 2 weeks Continued skilled occupational therapy as below to address: Treatment Plan: ___ADLs _x__UE AROM/AAROM/PROM ___Transfers ___Cognition ___Coordination ___Endurance ___Gross/Fine Motor ___Home Management ___Visual Perception ___Standing Act. _x__UE Strengthening ___Sensation/Compensation ___Visual Skills ___Facilitation ___Inhibition ___Adaptive equipment Assessment _x__Modalities _x__Other:HEP SHORT TERM GOALS: To be achieved in (4-6 visits). 1. Demonstrate HEP with 100% accuracy. 2. Increase AROM of Left shoulder. ALF GOALS: To be achieved in (6-8 visits). 1. Vet will display increased awareness of posture/biomechanics, scapular mechanics, and positioning techniques 2. Vet will be knowledgeable regarding the proper performance and progression of shoulder strengthening exercises 3. Vet will describe improved pain management with combination of HEP, and increased awareness of posture/scapular/biomechanics and positioning techniques Learning Assessment: Patient/Caregiver appeared ready for instruction (good eye contact, appropriate questions, active participation, etc.) Person(s) who received education: Patient Other Caregiver Ashonti Education Topic/Teaching Needs: Rehabilitation and Habilitation role of OT Methods used included: One-on-one: verbal Teaching outcomes: Good level of understanding /renzo/ MARIBEL Figueroa/VIRA Avila Occupational Therapist Signed: 12/05/2023 12:11 12/05/2023 ADDENDUM STATUS: UNSIGNED You may not VIEW this UNSIGNED Addendum. HARSH SEGURA Yehuda [facility] Dec 05, 2023 11:54 AM OCCUPATIONAL MEDIC INE CONSULT: LOCAL TITLE: OT CONSULT STL STANDARD TITLE: OCCUPATIONAL MEDICINE CONSULT DATE OF NOTE: DEC 05, 2023@11:54 ENTRY DATE: DEC 05, 2023@11:54:28 AUTHOR: HARSH SEGURA EXP COSIGNER: URGENCY: STATUS: COMPLETED OT CONSULT STL Has ADDENDA Initial Occupational Therapy Note Diagnosis: Pain in left Shoulder(ICD-10-CM M25.512) Requesting Provider: Trell Stauffer Reason for request: Left shoulder pain Date of Initial Evaluation: 7/25/24 Visit #: 1 Ca or NS #: 0 Total Treatment Time: 2151-4349 15 min eval 45 min ther ex Past Medical History: 1) DIAPHRAGMATIC HERNIA 2) OSTEOARTHROS NOS-UNSPEC 3) PEPTIC ULCER NOS 4) Knee pain (SNOMED CT [id number]) 5) Type 2 diabetes mellitus 6) Benign essential hypertension 7) Rheumatoid arthritis 8) Cerebral infarction 9) Seizure 10) Atrial fibrillation 11) Gastroesophageal reflux disease 12) Peripheral nerve disease 13) Hyperlipidemia 14) Benign prostatic hyperplasia 15) Low back pain 's personal goals are: Have pain free Movement of left shoulder SUBJECTIVE: Reports left shoulder pain for over a year and getting worse, no injury Vet is A/O x 4 (name, place, time/date, situation). Vet was able to demo understanding of therapy instructions this date. No further cognitive screening was indicated. Pain: rating at best: 4/10 rating at worst:8/10 current level:4/10 relieved by: rest/heat OBJECTIVE: Mobility/Transfers: Independent ADLS: Independent IADLS: Independent Postural Control (Balance) Sitting - Static: good Sitting Dynamic: good Standing - Static: NT Standing Dynamic: NT (Good = Maintained position without loss of balance) (Fair = Unsteady but able to recover balance) (Poor = Unsteady not able to recover balance) Observation/Palpation: Vet has bilaterally forward and IR shoulders Cervical active ROM: Flexion __ degrees, extension __ degrees, sidebend right ___ degrees, sidebend left ____ degrees, rotation right ____ degrees, rotation left ____ degrees. ----- 10/29/23 Left shoulder x-ray. Impression: Mild glenohumeral and acromioclavicular osteoarthritis. --- UE: AROM is WNL. Strength is WNL. RIGHT UE Vet reports some pain but not nearly to what the left is. ~140 flexion LEFT UE Significant decrease ROM ~90 Active flexion ~140 Passive flexion ~90 Passive ABduction 115 Active flexion s/p session Scapulo-Humeral Rhythm: _x_decreased upward rotation __scapular winging with return __scapular tipping with return Painful arc: __Yes _x_No Muscle Lengths: Pectoralis Minor: Rt: Short Lt: Short Pass. ROM: Endfeel: __Normal __Hard/Firm __Empty/open __Springy _x_Capsular Treatment: In addition to an initial occupational therapy evaluation, vet provided with home exercise program he was able to complete within the clinic including: Vet is unable to get into supine position due to back pain, this does limit shoulder HEP and ROM. Vet provided with written instruction to complete 10 Reps 3 x a day Access Code: [email or web address] URL: [email or web address] Date: 12/05/2023 Prepared by: Harsh Segura Exercises - Seated Shoulder Flexion AAROM with Nitish Behind - 1 x daily - 7 x weekly - 3 sets - 10 reps - Seated Shoulder Flexion AAROM with Dowel - 1 x daily - 7 x weekly - 3 sets - 10 reps - Seated Shoulder Flexion Extension AAROM with Dowel into Wall - 1 x daily - 7 x weekly - 3 sets - 10 reps - Standing Scapular Retraction - 1 x daily - 7 x weekly - 3 sets - 10 reps - Seated Shoulder Flexion Towel Slide at Table Top - 1 x daily - 7 x weekly - 3 sets - 10 reps Equipment/Instructions: Issued/Ordered Nitish TENS Unit with electrodes. [employer] was ready to learn and demonstrated an understanding of instructions given on Role of OT, [place] 1:1 instruction in equipment issued and/or home exercise program as noted above. Assessment: Pt is a 73 year old male with chief complaint of left shoulder pain, imaging shows, Mild glenohumeral and acromioclavicular osteoarthritis . This is limiting his ability to participate in his daily activities, including his ability to raise his arm overhead, lift objects. Objectively, patient demonstrates limited and painful shoulder overhead range of motion, and decreased right shoulder rotator cuff strength. Patient will benefit from a skilled occupational therapy intervention to address the above impairments, progress towards goals, and improve current level of function. Occupational Profile and History [] Brief (low) [x] Expanded (moderate) [] Extensive (high) Performance deficits identified: [] ADLs [] IADLs [x] Functional mobility [x] Range of motion [] Muscle Strength [] Functional Endurance [] Functional Balance [] Fine motor coordination [] Adaptive equipment needs [] Cognition [] Vision [] Coping skills [] Interpersonal interaction [] Impulse control [] Other (please specify: ) Tee: 1-3 performance deficits = Low complexity 3-5 performance deficits = moderate complexity 5 or more performance deficits = high complexity Level of Clinical Decision Making [] problem-focused assessment [x] detailed assessment [] comprehensive assessment --Therefore, from the findings above in [facility] Occupational Profile/History, Performance Deficits and level of clinical decision making, the OT Evaluation level of complexity of this patient was: [] Low [x] Moderate [] High Barriers to achieving goals: Pain PLAN: Vet to f/u in 2 weeks Continued skilled occupational therapy as below to address: Treatment Plan: ___ADLs _x__UE AROM/AAROM/PROM ___Transfers ___Cognition ___Coordination ___Endurance ___Gross/Fine Motor ___Home Management ___Visual Perception ___Standing Act. _x__UE Strengthening ___Sensation/Compensation ___Visual Skills ___Facilitation ___Inhibition ___Adaptive equipment Assessment _x__Modalities _x__Other:HEP SHORT TERM GOALS: To be achieved in (4-6 visits). 1. Demonstrate HEP with 100% accuracy. 2. Increase AROM of Left shoulder. STORAGE RECEIPT POSTER GOALS: To be achieved in (6-8 visits). 1. Vet will display increased awareness of posture/biomechanics, scapular mechanics, and positioning techniques 2. Vet will be knowledgeable regarding the proper performance and progression of shoulder strengthening exercises 3. Vet will describe improved pain management with combination of HEP, and increased awareness of posture/scapular/biomechanics and positioning techniques Learning Assessment: Patient/Caregiver appeared ready for instruction (good eye contact, appropriate questions, active participation, etc.) Person(s) who received education: Patient Other Caregiver Ashonti Education Topic/Teaching Needs: Rehabilitation and Habilitation role of OT Methods used included: One-on-one: verbal Teaching outcomes: Good level of understanding /GIBRAN Tay CLT Occupational Therapist Signed: 12/05/2023 12:11 12/05/2023 ADDENDUM STATUS: COMPLETED Vet requesting Physical Therapy consult for Left knee pain. Also, requesting order of Size Large briefs. Thank you. /MARIBEL Tay/VIRA Avila Occupational Therapist Signed: 12/05/2023 12:13 Receipt Acknowledged By: 12/05/2023 15:50 /renzo/ Inna Stauffer DNP, APRN, FNP-C Primary Care Nurse Practitioner 12/05/2023 ADDENDUM STATUS: COMPLETED [place] PT consult placed for knee pain. Large briefs refilled. Thank you! /mercy Stauffer DNP, APRN, ATUL-C Primary Care Nurse Practitioner Signed: 12/05/2023 15:51 HARSH SEGURA [facility]
--- OUTSIDE RECORDS SUMMARY | 2024-10-02 09:03 | XMS_ITS | Clinical Summary ---
Author Organization [facility] Address [address] [place] [address] Care Team Providers Care Sexual Assault Counselor Name Role Phone Unavailable Primary Care Provider Unavailabl e Allergies Active Allergy Reactions Criticality Noted Date Comments Aspirin GI Intolerance 12/02/2018 Banana Itching Medium 02/07/2014 Latex Itching Medium 02/07/2014 Metoclopramide Other (See Comments) High 11/13/2019 Ataxia and other parkinson like symptoms Penicillins Hives,Rash Medium 08/08/2010 Sulfa Antibiotics Swelling,Rash Medium 08/08/2010 Medications pancrelipase, Vfm-Gnru-Bdlf, (PANCREAZE) 66169 units capsule Take 3 capsules by mouth 3 (three) times a day with meals. Active tolterodine LA (DETROL LA) 4 MG 24 hr capsule Take 4 mg by mouth daily. Active vitamin D cholecalciferol 25 MCG (1000 UT) tablet Take 2,000 Units by mouth daily. Active SITagliptin (JANUVIA) 100 MG tablet Take 1 tablet (100 mg total) by mouth daily. 30 tablet 0 Active metFORMIN (GLUCOPHAGE) 500 MG tablet Take 1 tablet (500 mg total) by mouth 2 (two) times a day with Breakfast and Dinner. 60 tablet 0 Active amLODIPine (NORVASC) 10 MG tablet Take 1 tablet (10 mg total) by mouth daily. 30 tablet 0 Active Apixaban (Eliquis) 5 MG tablet Take 1 tablet (5 mg total) by mouth 2 (two) times a day. 60 tablet 0 Active atorvastatin (LIPITOR) 20 MG tablet Take 1 tablet (20 mg total) by mouth nightly. 30 tablet 0 Active carvedilol (COREG) 6.25 MG tablet Take 1 tablet (6.25 mg total) by mouth 2 (two) times a day with Breakfast and Dinner. 60 tablet 0 Active DULoxetine (CYMBALTA) 60 MG capsule Take 1 capsule (60 mg total) by mouth daily. 30 capsule 0 Active leflunomide (ARAVA) 20 MG tablet Take 1 tablet (20 mg total) by mouth daily. 30 tablet 0 Active losartan (COZAAR) 100 MG tablet Take 1 tablet (100 mg total) by mouth daily. 30 tablet 0 Active pantoprazole (PROTONIX) 40 MG EC/DR tablet Take 1 tablet (40 mg total) by mouth Daily before breakfast. 30 tablet 0 Active pregabalin (LYRICA) 100 MG capsule Take 1 capsule (100 mg total) by mouth 2 (two) times a day. 60 capsule 0 Active tamsulosin (FLOMAX) 0.4 MG capsule Take 1 capsule (0.4 mg total) by mouth daily. 30 capsule 0 Active Active Problems Problem Noted Date Diagnosed Date COVID-19 04/24/2020 Cerebrovascular accident 11/14/2019 Other drug induced secondary parkinsonism 2019 Debility 05/12/2019 Type 2 diabetes mellitus with hyperglycemia 04/14 Atrial flutter 05/12/2019 Hypertension 05/12/2019 Rheumatoid arthritis 05/12/2019 Paroxysmal atrial fibrillation 05/08/2019 Diastolic dysfunction 08/06/2018 Peripheral nerve disease 11/29/2014 Presence of artificial knee joint 02/22/2014 Renal failure syndrome 02/07/2014 Immunizations Immunization Administration Dates Next Due Influenza, Unspecified 05/19/2019(Deferr ed: Received outside of this facility) Family History Medical History Relation Name Comments Heart disease Brother Hypertension Father Arthritis Mother Heart disease Mother Hyperlipidemia Mother Hypertension Mother Diabetes Sister Relation Name Status Comments Brother Father Mother Sister Social History Tobacco Use Types Packs/Day Years Used Date Smoking Tobacco: Never Smokeless Tobacco: Never Alcohol Use Standard Drinks/Week Comments Not Currently 0 (1 standard drink = 0.6 oz pur e alcohol) AUDIT-C Answer Date Recorded Frequency of Alcohol Consumption Never 05/11/2019 Average Number of Drinks Not on file 019 Frequency of Binge Drinking Not on file 04/14 Sex and Gender Information Value Date Recorded Sex Assigned at Not on file Legal Sex Male 3:49 PM EDT Gender Identity Not on file Sexual Orientation Not on file Last Filed Vital Signs Vital Sign Reading Time Taken Comments Blood Pressure 139/77 05/05/2020 8:25 AM HIGH SCHOOL FOREIGN LANGUAGE TUTOR Pulse 93 05/05/2020 8:25 AM HIGH SCHOOL FOREIGN LANGUAGE TUTOR Temperature 36.2 C (97.1 F) 05/05/2020 8:25 AM HIGH SCHOOL FOREIGN LANGUAGE TUTOR Respiratory Rate 18 05/05/2020 8:25 AM HIGH SCHOOL FOREIGN LANGUAGE TUTOR Oxygen Saturation 97% 05/05/2020 8:25 AM HIGH SCHOOL FOREIGN LANGUAGE TUTOR Inhaled Oxygen Concentration - - Weight 78.2 kg (172 lb 6.4 oz) 05/01/2020 6:56 A M HIGH SCHOOL FOREIGN LANGUAGE TUTOR Height 188 cm (6' 2 ) 04/24/2020 5:13 PM HIGH SCHOOL FOREIGN LANGUAGE TUTOR Body Mass Index 22.13 04/24/2020 5:13 PM HIGH SCHOOL FOREIGN LANGUAGE TUTOR Plan of Treatment Not on file Advance Directives * Full Resuscitation (Latest Code Status on File) Date Activated Date Inactivated Comments 04/24/2020 6:41 PM 05/05/2020 4:18 PM * Full Resuscitation Date Activated Date Inactivated Comments 11/13/2019 5:02 PM 11/19/2019 5:35 PM * Full Resuscitation Date Activated Date Inactivated Comments 05/12/2019 5:11 PM 05/19/2019 4:26 PM * Full Resuscitation Date Activated Date Inactivated Comments 12/07/2018 5:20 PM 12/17/2018 3:20 PM
--- OUTSIDE RECORDS SUMMARY | 2024-10-02 09:03 | XMS_ITS | Encounter Summary ---
Author Organization [facility] Address 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 Gender Identity Not on file Sexual Orientation Not on file documented as of this encounter Plan of Treatment Not on file documented as of this encounter Visit Diagnoses Diagnosis Nonspecific elevation of levels of transaminase or lactic acid dehydrogenase (LDH)- Primary documented in this encounter Additional Health Concerns Infection Onset Date Last Indicated Resolved Time MRSA Comment:02/2014 L knee, 04/2014 nares, left knee and blood 02/17/2014 02/17/2014 documented as of this encounter Care Teams Technical Fellow Relationship Specialty Start Date End Date Maxim Martínez MD PCP - General 01/14/18 documented as of this encounter
--- OUTSIDE RECORDS SUMMARY | 2024-10-02 09:03 | XMS_ITS | Encounter Summary ---
Author Organization [facility] Address [address] [place] [address] Care Team Providers Care Operations Support Analyst Name Role Phone Maxim Martínez MD Primary Care Provider Encounter Details Date Type Department Care Team (Latest Contact Info) Description 01/28/2003 Outpatient Historical HIS [facility] YOLANDA Goode, Jason Colon MD 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
--- OUTSIDE RECORDS SUMMARY | 2024-10-02 09:03 | XMS_ITS | Encounter Summary ---
Author Name [facility] [place] [facility] Address [address] [place] [address] Care Team Providers Care Pipe Bending Machine Operator Name Role Phone JSOEPH STAUFFER Primary Care Provider Unavailortiz coffey Insurance [...] STAND WILLI FAM Jun 03, 2018 105 [id number] [phone] Abdiel WHITLEY PATIENT ANTHEM [place] FEP PREFERRED PROVIDER ORGANIZAT ION (PPO) FEP STAND WILLI FAM Jun 03, 2018 105 [id number] [phone] Abdiel WHITLEY PATIENT ANTHEM [place] F[place] PREFERRED PROVIDER ORGANIZAT ION (PPO) FEP STAND WILLI FAM Jun 03, 2018 105 [id number] [phone] Abdiel WHITLEY PATIENT [place] F[place] PREFERRED PROVIDER ORGANIZAT ION (PPO) FEP STAND WILLI FAM Jun 03, 2018 105 [id number] [phone] Abdiel WHITLEY PATIENT [place] F[employer] ([id number]) PRESCRIPT ION FEPRX May 20, 1994 [id number] [phone] Abdiel WHITLEY PATIENT MEDICARE (WNR) MEDICARE (M) PART A Aug 11, 2014 PART A [id number] Abdiel WHITLEY PATIENT MEDICARE (WNR) MEDICARE (M) PART B Aug 11, 2014 PART B [id number] Abdiel WHITLEY PATIENT Selected Encounter This section includes the information on record at [place] for the Encounter. Date/Time Encounter Type Encounter Description Reason Provider Source Feb 28, 2024 11:00 AM THERAPEUTIC EXERCISES PHYSICAL THERAPY ICD-10-CM M25.569 Pain in unspecified knee MYLA SHER Marcus Encounter Template Text not used by [place] Assessments - Encounter Diagnoses This section includes the primary and secondary diagnoses documented for the Encounter. Date/Time Primary/Secondary Diagnosis Diagnosis Name Provider Source Mar 09, 2024 12:22 PM PRIMARY Pain in unspecified knee MYLA SHER [facility] Plan of Treatment: Future Appointments (+ 6 months) and Future Tests (+/- 45 days) The Plan of Treatment section includes future care activities for the patient from all [place] treatmentfacilities. This section includes future appointments and future orders which are active, pending or scheduled. Future Appointments This section includes appointments that were scheduled to occur 6 months from the date of the Encounter, up to a maximum of 20 appointments. The data comes from all [place] treatment facilities. Appointment Date/Time Appointment Type Appointme nt Facility Name Mar 05, 2024 10:30 AM AMBULATORY - NONE . [facility] Mar 11, 2024 10:00 AM AMBULATORY - NONE [facility] Mar 11, 2024 12:00 PM AMBULATORY - NONE [facility] Apr 10, 2024 08:00 AM AMBULATORY - NONE [facility] Apr 21, 2024 08:00 AM AMBULATORY - NONE [facility] Apr 22, 2024 08:30 AM AMBULATORY - NONE . [facility] May 25, 2024 02:00 PM AMBULATORY - REHAB MEDICIN E [facility] Jun 16, 2024 08:30 AM AM[facility]ULATORY - NONE [facility] Jun 16, 2024 12:00 PM AMBULATORY - MEDICINE [facility] Jul 21, 2024 12:00 PM AMBULATORY - MEDICINE [facility] Active, Pending, and Scheduled Orders This section includes a listing of several types of active, pending, and scheduled orders, including clinic medications orders, diagnostic test orders, procedure orders and consult orders; where the start date of the order is 45 days before the date of the Encounter or 45 days after the date of theEncounter. The data comes from all [place] treatment facilities. Test Date/Time Test Type Test Details Facility Name Feb 10, 2024 02:50 PM Consult Order [facility] DENTAL SPEC Cons [facility] Machine [facility] Apr 01, 2024 08:40 AM Consult Order COMM[facility]ITY CARE-GEC HOMEMAKER/HOME HEALTH AIDE [facility] Apr 02, 2024 08:24 AM Consult Order [facility] Social History: Smoking Status (Most current) and Tobacco Use (All prior to encounter date) This section includes the most current, and the historical, smoking and tobacco- related health factors from the [place] facility where the Encounter took place. Current Smoking Status This section includes the most current smoking, or tobacco-related health factor, from the [place] facility where the Encounter took place. Date/Time Current Smoking Status Comment Facil ity October 08, 2023 10:30 AM VA-TOBACCO NEVER USED [facility] Tobacco Use History This section includes a history of the smoking, or tobacco-related health factors, that were collected on or before the date of the Encounter. The data comes from the [place] facility where the Encounter took place. Date/Time Smoking Status/Tobacco Use Comment F acabner Mar 30, 2022 01:30 PM VA-TOBACCO NEVER USED [facility] May 26, 2020 10:00 AM VA-TOBACCO NEVER USED [facility] Jul 30, 2018 09:50 AM VA-TOBACCO NEVER USED [facility] Aug 01, 2016 10:23 AM LIFETIME NON-USER OF TOBACCO [facility] Jul 25, 2015 11:09 AM LIFETIME NON-USER OF TOBACCO . [facility] Advance Directives: All historical and current Section Date Range: From patient's date of to the date document was created. This section includes ALL of a patient's completed or amended [place] Advance and Rescinded Directives. The entries below indicate that a directive exists for the patient, but an actual copy is not included with this document. The data comes from all [place] facilities. Date Advance Directives Provider Source Dec 08, 2020 ADVANCE DIRECTIVE [address]UZ [address] [facility] Encounter Notes: All associated encounter notes This section contains the clinical notes associated to the Encounter. Date/Time Encounter Note(s) Provider Source Feb 28, 2024 11:24 AM PHYSICAL THERAPY C ONSULT: LOCAL TITLE: PT CONSULT ST[facility] STANDARD TITLE: PHYSICAL THERAPY CONSULT DATE OF NOTE: FEB 28, 2024@11:24 ENTRY DATE: FEB 28, 2024@11:24:46 AUTHOR: MYLA SHER EXP COSIGNER: URGENCY: STATUS: COMPLETED physical therapy initial evaluation sherri Chart Review: PMH: 1) Knee pain (SNOMED CT [id number]) 2) Type 2 diabetes mellitus 3) Benign essential hypertension 4) Rheumatoid arthritis 5) Cerebral infarction 6) Seizure 7) Atrial fibrillation 8) Gastroesophageal reflux disease 9) Peripheral nerve disease 10) Hyperlipidemia 11) Benign prostatic hyperplasia 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 Date: Jan 06, 2024 DST ID: Orderable Item: PT OUTPT HUYEN [facility] Consult: Consult Request Provisional Diagnosis: Pain in unspecified Knee(ICD-10-CM M25.569) Reason For Request: Physical Therapy Outpatient Consult Evaluation and Treatment for: Knee pain #Chronic bilateral knee pain: -Secondary to knee replacement (4 times) and s/p septic left knee. -Completed PT 08/2022. -Has bilateral knee braces. (REQUIRED) Enter any precautions: None Start of Care: 02/28/24 Visits to date: 1 No shows/cancellations: 0 Treatment time:0411-1527 Total 48 mins. Evaluation 20 mins. Therapeutic exercise: 28 mins. SUBJECTIVE: Pt reports to tell you the truth the appt was made for me . Patient notes he does a stretch when asked about continuing LE exercise from last bout of PT. --Onset: patient has had knee pain only about a couple of years . patient notes he does not wear his knee braces b/c they are too big. --Occupation: retired patient lives at home with , has caregiver there 24 hours a day, 6 days per week Saturday through saturday. --Pain Increased With: walking (walks with walker) --Pain Decreased With: pain meds, injections- cannot recall last injection but has had knee injections. Functional limitations: Patient denies falls in past couple of years, I can't crawl (when asked if you typically do that he notes I used to) patient notes caregiver helps with bathing, dressing, walking & sit to stand. patient notes I walk a couple of times per day. --Pain Rating (0-10): B knees Current: 5/10 Best: 5/10 Worst: 9/10 -- Pain over past month: [x] same [] worsening []improving --Pt. goal(s): Pt reports no goals right now OBJECTIVE: Assistive Device: rolling walker, patient comes into clinic with transport wheelchair Joint ROM: WFL throughout BLE, minimal loss in knee extension B. STRENGTH Knee ext: 3+/5 B Gait: patient ambulates throughout clinic with 2 wheeled walker and modified indepedent. patient demonstrates mild forward flexed posture, B knee flexion throughout stance & swing phase. patient ambulated with B knee braces for trial & reported pain was no worse, as it is normally with ambulation. Sit to stand: heavier use of arms during transfer but able to complete independently. Treatment: Initial Evaluation Therapeutic exercise: Sit to stand with arms x 4, focus on legs as primary house mover helper patient fitted for new knee braces, states his are too big. patient tolerated hinged knee braces well with no worsening of pain with ambulation. Pt was instructed in and demonstrated independence with current HEP x 1 including: walking with walker: increasing throughout his day to 5-6x per day sit to stand: x10, 2 sets per day, use hands as necessary seated knee extension: x 10, 2 sets per day. ASSESSMENT: Pt is a 73 y/o male who presents to outpatient PT with chronic B knee pain. patient is unaware why he is here for appt, came to wrong clinic as well. patient appears to have cognitive and memory deficits noted throughout evaluation. patient has had PT last year for same issue, has not continued with HEP, is fairly sedentary but does have a caregiver 6 days per week for him & his . . Patient has B knee braces issued in 2022 which he doesn't wear, states they are too big. Issued new knee braces (states these are different) and improved ability to ambulate with similar level of pain. Given patient has already PT for same issues, has already had knee injections, there is likely not much more from a PT standpoint to alleviate knee pain. Focus however was on function & trying to promote HEP done consistently at home. There would likely be poor functional carryover for skilled PT given cognitive/memory issues as well. caregiver present for session and can assist at home. No further skilled PT needs Goals: no skilled PT goals --PATIENT'S RESPONSE TO PHYSICAL THERAPY INTERVENTION: BARRIERS--- PERSONAL FACTORS OR CO-MORBIDITIES THAT IMPACT POC: [x] Cognition: [x] Home environment: [x] Distance patient lives from facility: lives in [place] [] Support of family/friends to assist: [] Transportation to facility issues: [] Patients willingness to participate: [] Work issues: [] Difficulty getting time off: [] Requires certain time slots to accommodate work schedule: [x] Co-morbidities: [] Other: CO-MORBIDITIES 1. cognitive deficits/memory 2. chronic pain 3. 4. Body Systems: elements include body structures & fxns, activity limitations, and/or participation restrictions) 1. knee ROM/MMT 2. pain 3. function-gait 4. - CLINICAL DECISION MAKNIG REGARDING PATIENTS LEVEL OF COMPLEXITY [x] STABLE AND/OR UNCOMPLICATED [] EVOLVING CLINICAL PRESENTATION WITH CHANGING CLINCIAL CHARACTERISTICS [] UNSTABLE AND UNPREDICTABLE CHARACTERISTICS THEREFORE, the level of complexity for this patient was: [x] Low, [] Moderate, [] High Equipment: 2 B hinged knee braces, M Plan: continue with HEP, no further skilled PT needs --PATIENT EDUCATION DOCUMENTATION: Person(s) who received education: [x] Patient; [x] Family: [] Other: Education Topic/Teaching Needs: [x] Home program: [x] Why compliance with home program is important [] Regarding automated call/letter regarding scheduled appointment; two no show policy; late arriving for appointment; follow up appointment lengths. [] TENS [] Nature of condition [] Other: Methods used Included: [x] Handout(s): [x] Home program: [x] Why compliance with home program is important [] Regarding automated call/letter regarding scheduled appointment; two no show policy; late arriving for appointment; follow up appointment lengths. [] TENS [] Other: [x] One-on one: [x] Verbal instructions [x] Visual instructions [] Tactile cues. [] Other: Teaching Outcomes: [x] Good; [] Fair; [] Poor [x] Patient acknowledged understanding of instruction [x] Family/Other acknowledged understanding of instruction /renzo/ MYLA SHER PT, DPT, c/NDT Signed: 02/28/2024 12:26 MYLA SHER [facility]
--- OUTSIDE RECORDS SUMMARY | 2024-10-02 09:03 | XMS_ITS ---
Author Organization [facility] Address [address] [place] [address] Care Team Providers Care Marketing Strategy Analyst Name Role Phone Betzy Montana MD Unavailable Dora Peraza MD Unavailable Gabriel Camarena MD Unavailable [phone] Wyatt Ang MD Unavailable Skyler Noriega DPM Unavailable Selwyn Acharya MD Unavailable Unavailable Shemar Lawler MD Unavailable [phone] Nelda Grove MD Unavailable [phone] Timi Weinberg MD Primary Care Provider Afsaneh Kang APRN-MODEL AND PATTERN SUPERVISOR Unavailable Nieves Smith MA Unavailable QMM & AWV - Vibrance Status:Identified (Enrolling) Start date:09/28/2024 Enrollment reason:Identified using claims or encounter data Case Team Name Relationship Phone Nieves Smith MA(Responsible Staff) Care Coor dination Specialist [phone] Continued Care and Services Coordination
--- OUTSIDE RECORDS SUMMARY | 2024-10-02 09:03 | XMS_ITS | Encounter Summary ---
Author Name [facility] [place] [facility] [place] [facility] [place] Address [address] [place] [address] Care Team Providers Care Hr Receptionist Name Role Phone JOSEPH STAUFFER Primary Care [...] STAND WILLI FAM Jun 03, 2018 105 [id number] [phone] Abdiel WHITLEY PATIENT ANTHEM [employer] [place] FEP PREFERRED PROVIDER ORGANIZAT ION (PPO) FEP STAND WILLI FAM Jun 03, 2018 105 [id number] [phone] Abdiel WHITLEY PATIENT [place] [employer] [place] F[place] PREFERRED PROVIDER ORGANIZAT ION (PPO) FEP STAND WILLI FAM Jun 03, 2018 105 [id number] [phone] Abdiel WHITLEY PATIENT [employer] [place] F[place] PREFERRED PROVIDER ORGANIZAT ION (PPO) FEP STAND WILLI FAM Jun 03, 2018 105 [id number] [phone] Abdiel WHITLEY PATIENT [employer] F[employer] ([id number]) PRESCRIPT ION FEPRX May 20, 1994 [id number] [phone] Abdiel WHITLEY PATIENT MEDICARE (WNR) MEDICARE (M) PART B Aug 11, 2014 PART B [id number] [phone] Abdiel WHITLEY PATIENT MEDICARE (WNR) MEDICARE (M) PART A Aug 11, 2014 PART A [id number] Abdiel WHITLEY PATIENT Selected Encounter This section includes the information on record at [place] for the Encounter. Date/Time Encounter Type Encounter Description Reason Provider Source Dec 10, 2023 01:00 PM OFFICE O/P NEW MOD 45 MIN CARDIOLOGY ICD-10-CM I48.0 Paroxysmal atrial fibrillation JESSICA CUBA Marcus Encounter Template Text not used by [place] Assessments - Encounter Diagnoses This section includes the primary and secondary diagnoses documented for the Encounter. Date/Time Primary/Secondary Diagnosis Diagnosis Name Provider Source Dec 23, 2023 06:15 AM PRIMARY Paroxysmal atrial fibrillation JEANA CUBA [facility] Plan of Treatment: Future Appointments (+ 6 months) and Future Tests (+/- 45 days) The Plan of Treatment section includes future care activities for the patient from all [place] treatmentfacilities. This section includes future appointments and future orders which are active, pending or scheduled. Future Appointments This section includes appointments that were scheduled to occur 6 months from the date of the Encounter, up to a maximum of 20 appointments. The data comes from all [place] treatment facilities. Appointment Date/Time Appointment Type Appointme nt Facility Name Dec 20, 2023 12:00 PM AMBULATORY - NONE [facility] Dec 23, 2023 02:00 PM AMBULATORY - REHAB MEDICIN E [facility] Jan 10, 2024 09:30 AM AMBULATORY - NONE [facility] Jan 14, 2024 10:30 AM AMBULATORY - MEDICINE [facility] Jan 16, 2024 11:00 AM AMBULATORY - SURGERY [facility] Jan 17, 2024 12:00 PM AMBULATORY - NONE [facility] Jan 24, 2024 11:00 AM AMBULATORY - REHAB MEDICIN E [facility] Feb 10, 2024 11:00 AM AMBULATORY - NONE [facility] Feb 10, 2024 02:00 PM AMBULATORY [facility] NONE [facility] Feb 28, 2024 11:00 AM AMBULATORY - REHAB MEDICIN E [facility] Mar 05, 2024 10:30 AM AMBULATORY - NONE [facility] Mar 11, 2024 10:00 AM AMBULATORY - NONE [facility] Mar 11, 2024 12:00 PM AMBULATORY - NONE [facility] Apr 10, 2024 08:00 AM AMBULATORY - NONE [facility] Apr 21, 2024 08:00 AM AMBULATORY - NONE [facility] Apr 22, 2024 08:30 AM AMBULATORY - NONE [facility] May 25, 2024 02:00 PM AMBULATORY - REHAB MEDICIN E [facility] Advance Directives: All historical and current Section Date Range: From patient's date of to the date document was created. This section includes ALL of a patient's completed or amended [place] Advance and Rescinded Directives. The entries below indicate that a directive exists for the patient, but an actual copy is not included with this document. The data comes from all [place] facilities. Date Advance Directives Provider Source Dec 08, 2020 ADVANCE DIRECTIVE MARYCRUZ SANABRIA Yehuda [facility] Encounter Notes: All associated encounter notes This section contains the clinical notes associated to the Encounter. Date/Time Encounter Note(s) Provider Source Dec 09, 2023 02:45 PM CARDIOLOGY CONSULT : LOCAL TITLE: CARDIOLOGY OUTPATIENT CONSULT [facility] STANDARD TITLE: CARDIOLOGY CONSULT DATE OF NOTE: DEC 09, 2023@14:45 ENTRY DATE: DEC 09, 2023@14:45:13 AUTHOR: LUOISE CUBA COSIGNER: URGENCY: STATUS: COMPLETED CARDIOLOGY CLINIC NEW PATIENT CONSULTATION PMH: 1) Knee pain (SNOMED CT [id number]) 2) Type 2 diabetes mellitus 3) Benign essential hypertension 4) Rheumatoid arthritis 5) Cerebral infarction 6) Seizure 7) Atrial fibrillation 8) Gastroesophageal reflux disease 9) Peripheral nerve disease 10) Hyperlipidemia 11) Benign prostatic hyperplasia 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 He is under the care of an outside outpatient admitting clerk for atrial fibrillation but is transferring his care to the [place]. He reports he will continue to get his cardiac medications from [facility]. He has no recent concerning cardiac symptoms. He lives with his and they have a caregiver to help them with appointments and transportation. His caregiver also sets up his medications with which she states he is compliant. He is unable to describe any of his medications and does not recall having significant heart problems. ROS: 10 Point review of systems negative except as noted in the subjective. Social History: Tobacco: none EtOH: none Illicit Drugs:none PAST CARDIAC WORKUP/TREATMENT: EC11/07/2023: SR, QTC 432ms Cath: none recent on record Stress Test: none recent on record ECHO: none recent on record OBJECTIVE: Vitals: Blood pressure: 150/92 (11/07/2023 10:14) Pulse: 100 (11/07/2023 10:14) Resp Rate: 16 (11/07/2023 10:14) Gen: Alert, oriented. NAD. Arrives to clinic in a wheelchair with his walker and hand and with a caregiver. Neck: No JVD. Carotids: No carotid bruits. CV: Regular, normal S1 and S2, no murmurs. Lungs: Clear bilaterally Abd: Soft, nontender. No palpable masses. No HSM Ext: No edema. 2+ palpable distal pulses B. Skin: No rashes. PROBLEM LIST: #Atrial fibrillation, paroxysmal: - rhythm-control approach with sotalol -Had watchman placed 03/04/22 at [facility]. # h/o Stroke: - limits include impaired ambulation requiring a walker and wheelchair at times. # h/o GI Bleed: The patient is unable to provide any recollection of this. # Diabetes # HTN PLAN: Continue current cardiac medications including sotalol. Return to clinic in 6 months with an ECG. Time expended on this encounter: 40 minutes LABS: Chol: No CHOLESTEROL EO data [...] MOUTH EVERY ACTIVE EVENING 21 Total Medications All patients are counseled on [...] completed, the results will be found in [facility]. # HEALTH PROMOTION/HEALTH MAINTENANCE & EDUCATION [...] as directed by the PCP (primary provider). /renzo/ LOUISE CUBA MUSEUM TECHNICIANPRESS SMITH HELPER, Signed: 12/10/2023 13:29 LOUISE CUBA [facility]
--- OUTSIDE RECORDS SUMMARY | 2024-10-02 09:03 | XMS_ITS | Clinical Summary ---
Author Organization [facility] Address [address] [place] [address] Care Team Providers Care Independent Marketing Consultant Name Role Phone Betzy Montana MD Unavailable [phone] Dora Peraza MD Unavailable [phone] Gabriel Camarena MD Unavailable [phone] Wyatt Ang MD Unavailable [phone] Skyler Noriega DPM Unavailable Selwyn Acharya MD Unavailable Unavailable Shemar Lawler MD Unavailable Nelda Grove MD Unavailable [phone] Timi Weinberg MD Primary Care Provider [phone] Afsaneh Kang SCENIC ARTS SUPERVISOR-[facility] Unavailable Nieves Smith MA Unavailable [phone] Source Comments [facility],non-owned Affiliates and Associated Physician Practices is amultiple site organization consisting of ambulatory clinics and hospital sitesin [place], [place], [place] and [place]. This disclosure is being madepursuant to the Care Everywhere program and may not contain all information available regarding this patient. Last updated 18.[facility] Allergies Active Allergy Reactions Criticality Noted Date Comments Aspirin Bleeding High 12/02/2018 Pt has had SEVERE GI bleeds multiple times when taking this med. Has had to have blood transfusions. Able to tolerate ASA coated 81 mg tablet. Banana Unknown 06/14/2015 Celecoxib Dizziness 08/04/2020 Duloxetine Unknown High 04/16/2022 Erythromycin Unknown 09/29/2020 Infliximab Unknown 09/12/2018 Latex Rash Medium 06/14/2015 Lisinopril Dizziness 08/04/2020 Meloxicam Other 10/18/2020 Pharmacist stated patient should not take per . Penicillin G Unknown 01/15/1997 Penicillins Urticaria Medium 11/11/2013 Metoclopramide Other High 11/13/2019 Ataxia and other parkinson like symptoms Sulfanilamide 03/20/2016 Tree Nuts Anaphylaxis High 01/24/2021 Medications * Be aware that medications may not be up to date on this document. Alwaysverify current medications with the patient. Insulin Pen Needle 32G X 4 MM MISC 1 Each by Injection route 3 times daily 100 Each 11 01/12/20 21 Active Insulin Pen Needle (BD PEN NEEDLE ALEXIA U/F) 32G X 4 MM MISC Use 1 syringe 4 times daily 200 Each 2 01/12/20 21 Active Carboxymethylce llulose Sodium (REFRESH TEARS OP) 1 drop by Ophthalmic route Both eyes Active sotalol (Betapace) 120 MG tabletIndicatio ns:Atrial flutter, unspecified type (HCC) Take 1 (one) tablet by mouth 2 times daily 180 tablet 1 08/30/19 23 Active insulin aspart (NovoLOG) pen Inject 2 (two) Units subcutaneously daily before breakfast 9 mL 5 10/05/19 23 Active Pancreaze 43573-33573 units capsule TAKE 3 CAPSULES BY MOUTH THREE TIMES DAILY 15 MINUTES BEFORE MEALS 270 capsule 1 03/19/20 23 Active vitamin D3 (Cholecalcifero l) 25 MCG (1000 UNITS) tablet TAKE 2 TABLETS BY MOUTH ONCE DAILY 200 tablet 1 06/20/19 24 Active tamsulosin (Flomax) 0.4 MG capsuleIndicati ons:BPH with obstruction/low er urinary tract symptoms Take 1 (one) capsule by mouth 2 times daily At the same time every day after a meal. 180 capsule 3 08/08/19 24 Active fluticasone propionate (Flonase) 50 MCG/ACT nasal sprayIndication s:Eustachian tube disorder, bilateral Stem 2 (two) sprays into each nostril once daily 48 g 4 08/19/19 24 Active clopidogrel (plaVIX) 75 MG tablet Take 1 (one) tablet by mouth once daily 100 tablet 1 08/21/19 24 Active hydroxychloroqu ine (Plaquenil) 200 MG tablet TAKE 1 TABLET BY MOUTH TWICE DAILY WITH FOOD OR MILK FOR RHEUMATOID ARTHRITIS 200 tablet 1 08/21/19 24 Active brimonidine (Alphagan) 0.2 % ophthalmic solution Instill 1 (one) drop into both eyes 2 times daily BOTH EYES 10 mL 1 08/21/19 24 Active pregabalin (Lyrica) 100 MG capsule TAKE 1 CAPSULE BY MOUTH EVERY MORNING AND 2 CAPSULES BY MOUTH AT BEDTIME 270 capsule 2 09/27/19 24 Active levETIRAcetam (Keppra) 1000 MG tablet TAKE 1 TABLET BY MOUTH TWICE DAILY 200 tablet 1 11/26/19 24 Active apixaban (Eliquis) 5 MG tablet Take 1 (one) tablet by mouth 10/04/19 23 Active furosemide (Lasix) 40 MG tablet Take 1 (one) tablet by mouth once daily Active folic acid (Folvite) 1 MG tablet Take 1 (one) tablet by mouth once daily Active atorvastatin (Lipitor) 80 MG tablet Take 0.5 (one-half) tablet by mouth 2 times daily Active cyanocobalamin 100 MCG tablet as directed Orally Active amLODIPine (Norvasc) 2.5 MG tablet Take 1 (one) tablet by mouth once daily 90 tablet 03/30/20 24 Active finasteride (Proscar) 5 MG tabletIndicatio ns:BPH with obstruction/low er urinary tract symptoms TAKE 1 TABLET BY MOUTH DAILY 100 tablet 1 05/14/19 25 Active Active Problems Problem Noted Date Diagnosed Date Vascular dementia without be havioral disturbance, psychotic disturbance, mood disturbance, or anxiety, unspecified dementia severity 05/20/2023 Primary osteoarthritis of right knee 05/07/2023 Overview (05/07/2023): 07/2022 right knee x-rays with advanced [id number] medial compartment joint space narrowing. May not be a surgical candidate for TKA. Presence of Watchman left atrial appendage closu re device 11/18/2022 Primary localized osteoarthritis of pelvic regio n and thigh 08/02/2022 Sacroiliitis, not elsewhere classified 03/23/202 3 Pain in right knee 08/02/2022 Lumbosacral spondylosis without myelopathy 08/02 Gastrointestinal hemorrhage, unspecified gastrointestinal hemorrhage type 07/29/2022 Cataracts, bilateral 07/29/2022 GERD (gastroesophageal reflux disease) 3 Benign prostatic hyperplasia 07/02/2022 Syncope and collapse 05/08/2022 Urinary retention 12/30/2021 Left hemiparesis 12/28/2021 Overview (12/28/2021): 11/02/21 Gabriel Davis MD Neurology Seizure 12/28/2021 Overview (12/28/2021): 10/06/21 Heena Yadav APRN-CALL MANAGER Nurse Practitioner Family Bilateral non-palpable testicles 10/05/2021 Difficulty in walking, not elsewhere classified 10/05/2021 Need for assistance with personal care 2 Psychomotor deficit following cerebral infarctio n 10/05/2021 Unsteadiness on feet 10/05/2021 History of GI bleed 09/17/2021 Neuropathy due to type 2 diabetes mellitus 06/13 Controlled type 2 diabetes m ellitus with diabetic nephropathy, with long-term current use of insulin 12/21/2020 Overview (12/21/2020): Jeffrey Camarena, 12/14/2020 NSVT (nonsustained ventricular tachycardia) 12/11 Overview (12/21/2020): 08/09/2020 [facility] Janine Awad Pradeep, MD Parkinsonism, unspecified Parkinsonism type 12/11 Overview (12/21/2020): 11/07/2019 [facility] Lindsay Awad Danuta M, MD Calcification of aorta 12/21/2020 Overview (12/21/2020): CareEverywhere, CT Enterography, 12/19/2012, not mentioned on more recent exams There is mild tortuosity and calcification of the distal aspect of the abdominal aorta with no evidence of aneurysm. 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 05/26/2019 Overview (12/21/2020): Maxim Martínez MD 06/15/2020 Basilar artery stenosis 05/26/2019 Paroxysmal atrial fibrillation 05/08/2019 Overview (06/01/2020): Eboni Watkins APRN-CNP on 07/07/19 Mixed hyperlipidemia 12/25/2018 Facial weakness 12/02/2018 Frequent falls 12/02/2018 Osteoarthritis of both hips 12/02/2018 Shoulder abrasion, left, initial encounter 12/02 Pain of both hip joints 12/02/2018 Arthritis 09/26/2018 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 08/06/2018 Diastolic dysfunction 08/06/2018 Idiopathic chronic pancreatitis 08/06/2018 Overview (06/01/2020): Eboni Watkins APRN-CNP on 01/04/20 Impotence due to erectile dysfunction 06/19/2018 Diabetes mellitus type II, controlled 11/29/2014 Overview (05/26/2019): Last Assessment & Plan: - controlled on januvia/metformin with A1c <7 > cont same meds upon d/c Hypertension, essential 11/29/2014 Overview (05/26/2019): Last Assessment & Plan: - cont norvasc Peripheral neuropathy 11/29/2014 Rheumatoid arthritis involvi ng multiple sites with positive rheumatoid factor 11/29/2014 Overview (06/01/2020): Eboni Watkins APRN-CNP on 05/26/19 Debility 11/29/2014 Insomnia 11/29/2014 History of artificial joint 05/25/2014 Presence of artificial knee joint 04/26/2014 Other specified diseases of gallbladder 02/13/20 14 Spinal stenosis of lumbar re gion without neurogenic claudication 11/05/2003 Resolved Problems Problem Noted Date Diagnosed Date Resolved Date Diarrhea, unspecified type 07/29/2022 0 08/07/2022 Abdominal pain, left upper quadrant 07/29/2022 05/07/2023 Syncope, unspecified syncope type 03/04/2022 08/07/2022 Primary osteoarthritis of left knee 01/10/2022 05/07/2023 Acute renal failure syndrome 10/05/2021 07/24/2023 Other chronic pain 10/05/2021 Altered mental status 10/02/20212022 Traumatic hematoma of forehead 10/02/2021 05/07/2023 CECI (acute kidney injury) 02/09/2021 Urinary tract infection without hematuria 02/09/2021 07/24/2023 Rheumatoid arthritis, involv ing unspecified site, unspecified rheumatoid factor presence 12/21/2020 05/07/2023 Overview (12/21/2020): Eboni Watkins APRN-CNP 02/08/2020 Drug-induced parkinsonism 12/21/2020 Overview (12/21/2020): Gabriel Davis MD 01/20/2020 Altered mental status 10/11/20202020 Abscess, scrotum 10/11/2020 10/02/2021 Fever 10/11/2020 10/25/2020 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 10/11/2020 07/24/2023 Aphasia 08/09/2020 07/24/2023 Contusion of hip 08/04/2020 10/02/2021 Syncope 07/22/2020 08/07/2022 Cough 04/13/2020 05/11/2020 Weakness 04/13/2020 08/07/2022 Fever 04/13/2020 04/27/2020 Clostridium difficile colitis 11/24/2019 10/02/2021 Chronic right SI joint pain 11/07/2019 10/02/2021 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 10/02/2021 Elevated serum creatinine 05/08/2019 Fall 12/02/2018 06/15/2020 Acute neck pain 12/02/2018 05/07/2023 Facial droop 11/22/2018 05/07/2023 Overview (05/26/2019): Last Assessment & Plan: - as above Difficulty swallowing 11/22/20182021 Overview (08/04/2020): Last Assessment & Plan: - seen by speech therapy > ok for regular foods/regular liquids History of stroke 11/22/2018 08/11/2020 Overview (08/04/2020): Last Assessment & Plan: - has recurrent symptoms c/w TIA/recrudescence that are similar to prior CVA and improving (nearly to b/l), unclear what led to acute worsening > has known verterbrobasilar atherosclerotic disease > D/w'd neuro again today > w/out basilar symptoms (vertigo/n/v/new weakness in new distribution, unsteadiness) would not be something that would be intervenable/need to intervene endovascularly - cont plavix (doesn't tolerate ASA), changed to statin (LDL ok) - BP mildly high here > ?stress related, gets BP checked frequently at home and always 120-130 systolic so will cont amlodipine - PT eval > if ok likely ok for d/c with neuro f/u - speech saw and ok for regular diet again History of DVT (deep vein thrombosis) 06/19/2018 08/11/2020 GERD (gastroesophageal reflux disease) 10/15/2017 05/20/2023 DDD (degenerative disc disease), cervical 11/29/2014 06/11/2016 Breast lump 07/14/2014 10/02/2021 Methicillin resistant Staphy lococcus aureus infection 04/26/2014 07/24/2023 Acute cholecystitis 02/13/2014 05/07/20 Rhabdomyolysis 02/07/2014 05/07/2023 Low back pain 01/21/2014 08/11/2020 Pain in both hands Encounters Date Type Department Care Team Description 09/28/2024 Patient Outreach [facility] - Care Coordination [address] [place] [address] Nieves Smith MA Outreach Preventive Care from Last 3 Months Immunizations Immunization Administration Dates Next Due COVID MODERNA 12+ yr 50mcg/0.5mL 02/04/2024 COVID PFIZER BIVALENT 12Y+ 30mcg/0.3ML Covid Pfizer primary Monoval ent 12+ yr 0.3ml 11/17/2021 Covid Pfizer primary monoval ent 12+ yr 0.3mL Purple cap 08/05/2020,07/08/2020 HEP A/HEP B 01/22/2020 INFLUENZA VACCINE 02/11/2020 INFLUENZA VACCINE, ADJUVANTE D, QUADR. (FLUAD QUADRIVALENT; 65Y+) (AIIV4) 03/06/2022,03/21/2021 INFLUENZA VACCINE, ADJUVANTE D, TRIV. (FLUAD TRIVALENT; 65Y+) (AIIV3) 02/04/2024 INFLUENZA VACCINE, HIGH-DOSE , QUADR. (FLUZONE HIGH-DOSE QUADRIVALENT; 65Y+), 0.7 ML (HD-IIV4) 02/18/2019,03/20/2016 INFLUENZA VACCINE, QUADR. (F LUZONE; FLULAVAL; FLUARIX; AFLURIA QUADRIVALENT; 6MO+), 0.5 ML (IIV4) 05/22/2018 PNEUMOCOCCAL PPSV23 02/18/2017 Pneumococcal Pcv13 Conj 05/14/2016,03/20/2016 TDAP (7yrs+) 01/22/2020,11/29/2016,05/13/2013 Zoster Hzv Vacc Recombinant Inj Im 10/03/2022, iNFLUENZA VACCINE, RECOM-WEAVER, QUADR. (FLUBLOCK QUADRIVALENT; 18Y+) (RIV4) 02/08/2020 Family History Medical History Relation Name Comments CVA Father Hypertension Father CAD (Coronary Artery Disease) Mother Hypertension Mother Relation Name Status Comments Father Mother Social History Tobacco Use Types Packs/Day Years Used Date Smoking Tobacco: Never Smokeless Tobacco: Never Tobacco Cessation:Counseling Given: Not Answered Alcohol Use Standard Drinks/Week Comments No 0 [...] Recorded Patient Health Questionnaire-2 Score 0 02/04/2024 [facility] - Occupational Stress [...] place to sleep or slept in a [place] health care facility (including now)? No 02/26/2023 Sex and Gender Information Value Date Recorded Sex Assigned at Not on file Legal Sex Male 1:20 PM GENERAL [employer] Gender Identity Not on file Sexual Orientation Not on file Last Filed Vital Signs Vital Sign Reading Time Taken Comments Blood Pressure 143/85 03/02/2024 1:12 PM CDT Pulse 91 03/02/2024 1:12 PM CDT Temperature 36.5 C (97.7 F) 02/04/2024 2:14 PM CDT Respiratory Rate 18 02/04/2024 2:14 PM CDT Oxygen Saturation 100% 03/02/2024 1:12 PM CDT Inhaled Oxygen Concentration - - Weight 72.7 kg (160 lb 3.2 oz) 03/02/2024 1:12 P M CDT Height 188 cm (6' 2 ) 03/02/2024 1:12 PM CDT Body Mass Index 20.57 03/02/2024 1:12 PM CDT Plan of Treatment Health Maintenance Due Date Last Done Comments COLOGUARD (AGES 45-75) - COLON CA SCREENING 1949 CT COLONOGRAPHY - COLON CA SCREENING 1950 FIT - COLON CA SCREENING 1950 FLEX SIG - COLON CA SCREENING 1950 COLON MONITORING 12/16/2022 12/16/2012 DIABETES RETINOPATHY SCREENING 12/09/2023 12/08/2021 (Done Outside Per Patient), 11/25/2020, 07/10/2019, Additional history exists DIABETES-HGB A1C 02/18/2024 08/19/2023, 12/2023, 11/14/2022, Additional history exists DEPRESSION SCREENING 05/13/2024 05/20/2023, 05/17/2022, 08/01/2021 DIABETES - URINE PROTEIN SCREENING 05/13/2024 02/04/2024 COVID-19 VACCINE ( season) 2024 02/04/2024, 03/06/2022, 11/17/2021, Additional history exists Respiratory Syncytial Virus (RSV) Vaccine Pt: or over 60 yrs (1 - 1-dose 75+ series) 2024 MEDICARE AWV 12 MONTHS 12/29/2024 12/30/2023, 11/14/2022, 03/21/2021, Additional history exists DIABETES-SERUM CREATININE 01/30/20252023, 12/30/2023, 09/25/2023, Additional history exists DIABETES-FOOT EXAM WITH MONOFILAMENT 02/03/2025 02/04/2024, 02/04/2024, 03/21/2021, Additional history exists COLONOSCOPY - COLON CA SCREENING 12/11/2025 12/12/2015 (Done Outside Per Patient), 12/16/2012 Colorectal Cancer Screening 12/11/2025 DTAP/TDAP/TD VACCINES (4 - Td or Tdap) 01/21/2030 01/22/2020, 11/29/2016, 05/13/2013 PNEUMOCOCCAL VACCINE 50+ Completed 017, 05/14/2016, 03/20/2016 HEPATITIS B VACCINE Discontinued 01/22/2020 HEPATITIS C SCREENING Completed 02/08/2020 ZOSTER VACCINE Completed 10/03/2022, 07/06/2022 INFLUENZA VACCINE Completed 02/04/2024, , 03/21/2021, Additional history exists HIB VACCINE Aged Out No longer eligi ble based on patient's age to complete this topic HPV VACCINE Aged Out No longer eligi ble based on patient's age to complete this topic MENINGOCOCCAL (Group B) VACCINE SHARED DECISION-MAKING Aged Out No longer eligible based on patient's age to complete this topic MENINGOCOCCAL GROUPS A/C/Y/W VACCINE Aged Out No longer eligible based on patient's age to complete this topic Goals Goal Patient Goal Type Associated Problems Recent Progress Patient-Stated? Author Patient Stated Goal: General Improving(10/2021 4:38 PM CDT) Yes Hazel Peng, RN Note: Ride Bicycle Independently Progress toward [...] issues. Patient is riding his cardio cruiser. Medical Devices Implanted Type Area Clinical Data Coordinator Device Identifier Shelf Expiration Date Model / Serial / Lot Ent Kit Implanted:Qty : 1 on 09/23/2020 by Nelda Grove MD at [facility] Right: Abdomen 01/07/2023 [id number] / / [id number] Oclr Cv 24mm Dlv Sys Watchman Flx Strl Implanted:Qty : 1 on 02/28/2022 by Jeffrey Camarena MD at [facility] [employer] [id number] 10/29/2024 [id number] / NA / [id number] Explanted Type Area Clinical Data Coordinator Device Identifier Shelf Expiration Date Model / Serial / Lot Oclr Cv 20mm Dlv Sys Watchman Flx Strl Explanted:Qty: 1 on 02/28/2022 at [facility] [employer] [id number] 08/22/2024 [id number] / NA / [id number] Procedures Procedure Name Priority Date/Time Associated Diagnosis Comments MICROALB/CREAT URINE - POINT OF CARE (AMB) Routine 02/04/2024 2:30 PM CDT Controlled type 2 diabetes mellitus with diabetic nephropathy, with long-term current use of insulin COMPREHENSIVE METABOLIC PANEL Routine 01/31/2024 11:32 AM CDT Controlled type 2 diabetes mellitus with diabetic nephropathy, with long-term current use of insulin HEMOGLOBIN A1C - POINT OF CARE (AMB) Routine 08/19/2023 1:30 PM CDT Controlled type 2 diabetes mellitus with diabetic nephropathy, with long-term current use of insulin HM DIABETES EYE EXAM Routine 11/25/2020 HEPATITIS C ANTIBODY Routine 02/08/2020 10:12 AM CDT Screening for viral disease COLONOSCOPY 12/16/2012 from Last 3 Months or Most Recently Relevant to Health Maintenance Results * MICROALB/CREAT URINE - POINT OF CARE (AMB) (02/04/2024 2:30 PM CDT) QC Verified Yes Yes [facility] Microalbumin 30 [facility] Creatinine POCT 200 [facility] Microalbumin/Crea tinine Ratio <30 [facility] Urine URINE / Unknown 02/04/2024 2 :30 PM CDT Afsaneh Kang SCENIC ARTS SUPERVISOR-CALL MANAGER LAB - POINT OF CA RE ORDERABLES Final Result [facility] [address] [phone] * (ABNORMAL) COMPREHENSIVE METABOLIC PANEL (01/31/2024 11:32 AM CDT) Glucose 103(H) 70 - 99 mg/dL [facility] INSURANCE BILL BUN 16 8 - 27 mg/dL [facility] INSURANCE BILL Creatinine 1.11 0.76 - 1.27 mg/dL [facility] INSURANCE BILL eGFR by CKD-EPI 70 >59 mL/min/1.7 3 [facility] INSURANCE BILL BUN/Creatinine Ratio 14 10 - 24 [facility] INSURANCE BILL Sodium 142 134 - 144 mmol/L [facility] INSURANCE BILL Potassium 4.1 3.5 - 5.2 mmol/L [facility] INSURANCE BILL Chloride 105 96 - 106 mmol/L [facility] INSURANCE BILL CO2 23 20 - 29 mmol/L [facility] INSURANCE BILL Calcium 9.6 8.6 - 10.2 mg/dL [facility] INSURANCE BILL Protein Total 7.0 6.0 - 8.5 g/dL [facility] INSURANCE BILL Albumin 3.8 3.8 - 4.8 g/dL [facility] INSURANCE BILL Globulin Total 3.2 1.5 - 4.5 g/dL [facility] INSURANCE BILL Bilirubin Total 0.5 0.0 - 1.2 mg/dL [facility] INSURANCE BILL Alkaline Phosphatase 69 44 - 121 IU/L [facility] INSURANCE BILL AST 22 0 - 40 IU/L [facility] INSURANCE BILL ALT 23 0 - 44 IU/L [facility] INSURANCE BILL Blood BLOOD SPECIMEN / Unknown 01/31/2024 11:32 AM CDT 01/31/2024 Narrative [facility] INSURANCE BILL - 02/01/2024 6:15 AM CDT Performed at: 01 - [facility] [address] [place], [place] [id number] Transportation Design Engineer: Dae Freeman PhD, Phone: [phone] us Timi Weinberg MD LAB - CHEMISTRY ORDERABLES Final Result [facility] INSURANCE BILL [address] [place] [address] * HEMOGLOBIN A1C - POINT OF CARE (HgbA1C) (08/19/2023 1:30 PM CDT) Hemoglobin A1c POCT 7.0 % [facility] Expiration Date 11/08/23 [facility] Lot # [id number] [facility] QC Verified Yes Yes [facility] Blood BLOOD SPECIMEN / Unknown 08/19/2023 1:30 PM CDT us Afsaneh Kang SCENIC ARTS SUPERVISOR-CALL MANAGER LAB - POINT OF CA RE ORDERABLES Final Result [facility] [address] [phone] * DIABETES EYE EXAM (11/25/2020) us Scanned Document HEALTH MAINTENANCE Final Result * HEPATITIS C ANTIBODY (02/08/2020 10:12 AM CDT) Hepatitis C Antibody Non Reactive Non Reactive [facility] INSURANCE BILL Comment: Non Reactive - Antibodies to Hepatitis C virus (HCV) were no t detected, result does not exclude early acute HCV infection. Blood BLOOD SPECIMEN / Unknown 02/08/2020 10:12 AM CDT 02/08/2020 Narrative Resulting Agency Comment Lab Testing performed at: [facility] [address] [facility] [id number] us Eboni Watkins SCENIC ARTS SUPERVISOR-CALL MANAGER LAB - CHEMISTRY ORD ERABLES Final Result [facility] INSURANCE BILL [address] [place] [address] * COLONOSCOPY (12/16/2012) 12/16/2012 Narrative 12/16/2012 Ordered by an unspecified provider. us Scanned Document SCANNING ONLY Final Result from Last 3 Months or Most Recently Relevant to [place] [address] [facility] [place] [address] Advance Directives * Full Code (Latest Code Status on File) Date Activated Date Inactivated Comments 07/29/2022 6:02 PM 07/30/2022 5:08 PM * Full Code Date Activated Date Inactivated Comments 05/08/2022 8:55 AM 05/10/2022 1:30 PM * Full Code Date Activated Date Inactivated Comments 05/08/2022 7:02 AM 05/08/2022 8:55 AM * Full Code Date Activated Date Inactivated Comments 03/02/2022 8:24 PM 03/05/2022 3:36 PM * Full Code Date Activated Date Inactivated Comments 02/28/2022 11:16 AM 03/01/2022 3:37 PM Care Teams Independent Marketing Consultant Relationship Specialty Start Date End Date Timi Weinberg MD [address] [place] [address] PCP - General Internal Medicine 05/20/23 Afsaneh Kang, SCENIC ARTS SUPERVISOR-CALL MANAGER [address] [place] [address] PCP - Attributed-MSSP 01/12/24 Betzy Montana MD [address] [place] [address] Rheumatology 11/24/19 [place] [address] [place], [place] [phone] Orthopedic Surgery 03/14/20 Gabriel Camarena MD [address], [place] [phone] Cardiovascular Disease 08/04/20 Wyatt Ang MD [address] [facility] [address] [place] [address] Cardiology 08/04/20 Skyler Noriega DPM [address] [place] [address] Podiatry 08/16/20 Selwyn Acharya MD [address] [place] [address] Endocrinology 08/16/20 Shemar Lawler MD [address] [facility] [address] [place] [address] Physician Gastroenterology 11/09/20 Nelda Grove MD [address] [facility] [address] [place] [id number] Physician Urology 01/06/21 Nieves Smith MA [address] [facility] [address] [place] [address] Care Coordination Specialist Care Management 09/28/24
--- OUTSIDE RECORDS SUMMARY | 2024-10-02 09:03 | XMS_ITS | Encounter Summary ---
Author Organization [employer] Address 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 Gender Identity Not on file Sexual Orientation Not on file documented as of this encounter Plan of Treatment Not on file documented as of this encounter Procedures Procedure Name Priority Date/Time Associated Diagnosis Comments HIV RAPID SCREEN Routine 08/30/2006 11:4 4 AM CDT HEPATITIS C AB W/CONFIRMATION Routine 08/30/2006 11:44 AM CDT HEPATITIS B SURFACE ANTIGEN Routine 08/30/2006 11:44 AM CDT documented in this encounter Results * HEPATITIS C AB WITH CONFIRMATION BY RIBA (08/30/2006 11:44 AM CDT) HEPATITIS C AB NON-REACTI VE NON-REACT AMISH INTERFACE SYSTEM SIGNAL TO CUT OFF 0.06 <1.00 INTERFACE SYSTEM Comment: Lab test performed by: [facility] [address] [place] [address] [address] BANG CHRIS MD 08/30/2006 11:4 4 AM CDT us Preston Patel MD CHEMISTRY ORDERABLES Edited Performing Organization Address [facility] Phone Number INTERFACE SYSTEM Refer to clinic/hospital department * HEPATITIS B SURFACE ANTIGEN (08/30/2006 11:44 AM CDT) HEPATITIS B SURFACE AG NON-REACTI VE NON-REACT AMISH INTERFACE SYSTEM Comment: Lab test performed by: [facility] [address] [place] [address] [address] BANG CHRIS MD 08/30/2006 11:4 4 AM CDT us Preston Patel MD CHEMISTRY ORDERABLES Edited Performing Organization Address [facility] Phone Number INTERFACE SYSTEM Refer to clinic/hospital department * HIV RAPID SCREEN (08/30/2006 11:44 AM CDT) RAPID HIV SCREEN Nonreactive Nonreactive INTERFACE SYSTEM Comment:Results called to Zachary keene at 08/30/2006 12:04 PM and read back verified. 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
--- OUTSIDE RECORDS SUMMARY | 2024-10-02 09:03 | XMS_ITS | Encounter Summary ---
Author Organization [employer] Address 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
--- OUTSIDE RECORDS SUMMARY | 2024-10-02 09:03 | XMS_ITS | Encounter Summary ---
Author Organization [employer] Address 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
--- OUTSIDE RECORDS SUMMARY | 2024-10-02 09:03 | XMS_ITS ---
Author Organization [facility] Address [address] [place] [address] Care Team Providers Care Application Development Intern Name Role Phone Miguel Clayton Unavailable [phone] Betzy Montana MD Unavailable Unavailable Allergies Allergen (clinical drug ingredient) Drug/Non Drug Allergy documented on EMR Reaction Allergy Type Onset Date Status penicillin (uncoded) Unknown Allergy Active Substance with sulfonamide structure and antibacterial mechanism of action (substance) sulfa (uncoded) Unknown Allergy Active REASON FOR VISIT Lumbar MBB @ [facility] No Sedation Medications Medication SIG (Take, [...] for [address] Gabriel West KENDAL: [id number] 04/21/2024 Active Folic Acid 1 MG 1 tablet Orally Once a day for 30 day(s) Active Finasteride 5 MG 1 tablet Orally Once a day for 30 day(s) Active Cyanocobalamin 100 MCG as directed Orally Active HYDROcodone-Acetaminoph en 7.5-325 MG 1 tablet as needed Orally every 6 hrs for 7 days Active Gabapentin 600 MG 1 tablet Orally Two times a day Active Metoprolol Succinate Active Furosemide 40 MG 1 tablet Orally Once a day Active EnteraGam 5 GM Orally Activ e metFORMIN HCl 1000 MG 1 tablet with a meal Orally Once a day Active Encounters Encounter Location Date Provider Diagnosis -[facility] [address] [place] [id number] 05/04/2024 Miguel Clayton Plan Of Treatment No Information Progress Notes * Jesse HUNTER EDOB:1950 (74 yo M)Acc No.[id number]:05/04/2024 Progress Note Patient: Jesse RED Provider: Abdiel Clayton MD :1950 A ge:73 Y S ex:Male Date:05/04/2024 Address:[address] [place] [address] , [facility], [id number] Subjective: * Chief Complaints: * 1 . Lumbar MBB @ [facility] No Sedation. * ROS: A complete [...] M other: . S iblings: alive. Abdiel bryanbrian: alive. N on-Contributory. * Social History: M [...] Notes to Pharmacist: Dr. Gabriel West KENDAL: [id number], Medication List reviewed and reconciled with the patient * Allergies: S ulfa, Penicillin. Objective: * Vitals: Assessment: Plan: * Treatment: * Images: Billing Information: * Visit Code: * Procedure Codes: * Electronic signature of Miguel Clayton MD on 10/02/2024 at 09:03 AM CDT Sign off status: Pending * Provider: Abdiel Clayton MD Date: 07/05/2023 Generated for Chan recio/Camilo/Ariadna on: 0 10/02/2024 09:03 AM CDT
--- OUTSIDE RECORDS SUMMARY | 2024-10-02 09:09 | XMS_ITS | Continuity of Care Document ---
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 It does not include entries that were removed or entered in error. Problem Status Onset Date Problem Type Date of Resolution Comments Source Atrial fibrillation Active Condition [facility] Benign essential hypertension Active Condition [facility] Benign prostatic hyperplasia Active Condition [facility] Bunion Active Condition [facility] Cerebral infarction Active Condition [facility] Cyst Active Condition [facility] Gastroesophageal reflux disease Active Condition [facility] Hyperlipidemia Active Condition [facility] Knee pain (SNOMED CT [id number]) Active Condition [facility] Osteoarthritis of lumbar spine Active Condition [facility] Osteoarthritis of shoulder Active Condition [facility] Peripheral nerve disease Active Condition [facility] Rheumatoid arthritis Active Condition [facility] Seizure Active Condition [facility] Type 2 diabetes mellitus Active Condition [facility] Clostridium difficile colitis Inactive Condition 04/01/2022 [facility] DIAPHRAGMATIC HERNIA Inactive Condition 10/10/2023 [facility] OSTEOARTHROS NOS-UNSPEC Inactive Condition 10/10/2023 [facility] PEPTIC ULCER NOS Inactive Condition 10/10/2023 [facility] ROUTINE MEDICAL EXAM Inactive Condition 04/01/2022 [facility] Diagnosis: ICD-10-CM I48.0 Paroxysmal atrial fibrillation Active Diagnosis [facility] Diagnosis: ICD-10-CM I63.9 Cerebral infarction, unspecified Active Diagnosis [facility] Diagnosis: ICD-10-CM M25.569 Pain in unspecified knee Active [facility] Diagnosis: ICD-10-CM K08.409 Partial loss of teeth, unspecified cause, unspecified class Active Diagnosis [facility] Diagnosis: ICD-10-CM R21 Rash and other nonspecific skin eruption Active Diagnosis [facility] Diagnosis: ICD-10-CM M25.512 Pain in left shoulder Active Diagnosis [facility] Diagnosis: ICD-10-CM Z04.89 Encounter for examination and observation for oth reasons Active Diagnosis [facility] Diagnosis: ICD-10-CM Z00.00 Encntr for general adult medical exam w/o abnormal findings Active Diagnosis [facility] Diagnosis: ICD-10-CM M54.50 Low back pain, unspecified Active Diagnosis [facility] Diagnosis: ICD-10-CM M06.9 Rheumatoid arthritis, unspecified Active Diagnosis [facility] Diagnosis: ICD-10-CM M25.562 Pain in left knee Active Diagnosis [facility] Medications Combined list of outpatient medications from Department of Defense and [facility] facilities.Medications provided include 1) outpatient medications from the last 15 months, and 2) patient-reported medications. Medication Details Route Status Patient Instructions Prescription Expires Prescription Number Last Dispense Date Ordering Provider Order Date Order Qty Source AMLODIPINE BESYLATE 2.5MG TAB TAKE ONE TABLET BY MOUTH ONCE A DAY ORAL ACTIVE LETITIA STAUFFER BRIGHTY R 2022 [facility] AMYLASE 24,000UNIT/ LIPASE 5,000UNIT/P ROTEASE 17,000UNIT CAP,EC TAKE 3 CAPSULES BY MOUTH THREE TIMES A DAY BEFORE MEALS ORAL ACTIVE LETITIA STAUFFER NEREYDA R 2021 [facility] APIXABAN 5MG TAB TAKE ONE TABLET BY MOUTH TWICE A DAY ORAL ACTIVE LETITIA STAUFFER LBY R 2022 [facility] ATORVASTATI N CA 40MG TAB TAKE ONE-HALF TABLET BY MOUTH EVERY EVENING ORAL ACTIVE YOKASTA BOOKER MD 2019 [facility] BETHANECHOL CL 25MG TAB TAKE TWO TABLETS BY MOUTH THREE TIMES A DAY ORAL ACTIVE LETITIA STAUFFER R 2021 [facility] CHLORHEXIDI NE GLUCONATE 4% LIQUID,TOP APPLY MODERATE AMOUNT TO AFFECTED AREA(S) DIRECTED (TOPICAL USE ONLY) AVOID CONTACT WITH EYES. CHIARA TRINIDAD INUED BY ALBERT R 12/07/2023 [id number] SILKE RENAE MM 2023 120 [facility] DIVISIO N CLOPIDOGREL BISULFATE 75MG TAB TAKE ONE TABLET BY MOUTH ONCE A DAY ORAL ACTIVE LETITIA STAUFFER R 2022 [facility] DIAZEPAM 5MG TAB TAKE ONE TABLET BY MOUTH ONE-TIME FOR ANXIETY AVOID TAKING WITH GRAPEFRU IT JUICE. PLEASE TAKE 30-60 MINUTES PRIOR TO MRI. ORAL 02/20/2024 [id number] LETITIA STAUFFER R 2023 1 [facility] FINASTERIDE 5MG TAB TAKE ONE TABLET BY MOUTH ONCE A DAY ORAL ACTIVE LETITIA STAUFFER R 2021 [facility] HYDROCODONE 7.5MG/ACETA MINOPHEN 325MG TAB TAKE ONE TABLET BY MOUTH EVERY 6 HOURS NEEDED ORAL ACTIVE YOKASTA BOOKER MD 2017 [facility] HYDROXYCHLO ROQUINE SULFATE (HYDROXYCHL OROQUINE SULFATE), 200MG, TABLET, ORAL, ZYDUS PHARMACEU, 100 ea. BOTTLE Active [id number] 2023 180 Pharmac y Data Transac tion Service Facilit y INSULIN,ASP ART,HUMAN 100 UNT/ML INJ INJECT 2 UNITS UNDER THE SKIN THREE TIMES A DAY BEFORE MEALS SUBCUT ANEOUS ACTIVE LETITIA STAUFFER R 2021 [facility] LATANOPROST 0.005% SOLN,OPH INSTILL 1 DROP IN BOTH EYES EVERY EVENING OPHTHA LMIC ACTIVE YOKASTA BOOKER MD 2017 [facility] LEVETIRACET AM 500MG TAB TAKE TWO TABLETS BY MOUTH TWICE A DAY ORAL ACTIVE LETITIA STAUFFER R 2022 [facility] MAGNESIUM OXIDE 400MG TAB TAKE ONE TABLET BY MOUTH ONCE A DAY ORAL ACTIVE LETITIA STAUFFER R 2022 [facility] METFORMIN HCL 1000MG/SAXA GLIPTIN 2.5MG 24 HR TAB,SA TAKE TWO TABLETS BY MOUTH ONCE A DAY ORAL ACTIVE LETITIA STAUFFER R 2022 [facility] METHYLPREDN ISOLONE (methylpred nisolone), 4 MG, TAB DS PK, ORAL, Enpirion, 21 ea. DOSE-PACK Active [id number] 2023 21 Pharmac y Data Transac tion Service Facilit y PANTOPRAZOL E NA 40MG TAB,EC TAKE ONE TABLET BY MOUTH EVERY MORNING ORAL ACTIVE YOKASTA BOOKER MD 2015 [facility] PREGABALIN (pregabalin ), 100 MG, CAPSULE, ORAL, LIANE PHARMAC, 90 ea. BOTTLE Cancele d [id number] : 2023 0 Pharmac y Data Transac tion Service Facilit y PREGABALIN 75MG CAP,ORAL TAKE 1 CAPSULE BY MOUTH AT BEDTIME ORAL ACTIVE LETITIA STAUFFER R 2021 [facility] SOTALOL TAB TAKE BY MOUTH TWICE A DAY ORAL ACTIVE LETITIA STAUFFER R 2021 [facility] TAMSULOSIN HCL 0.4MG CAP TAKE 1 CAPSULE BY MOUTH EVERY EVENING ORAL ACTIVE YOKASTA BOOKER MD 2018 [facility] Allergies, Adverse Reactions, Alerts Combined list of allergies from Department of Defense and Veterans Affairs facilities. It does not include entries that were removed or entered in error. Substance Category Reaction Severity Reaction type Status Date Reported Comments Source METOCLOPRAMID E Drug allergy (disorder) Renal failure syndrome active 3 [facility] PENICILLIN Propensity to adverse reactions to drug (finding) active 7 [facility] PENICILLINS Drug allergy (disorder) active 7 [facility] REGLAN Propensity to adverse reactions to drug (finding) Renal failure syndrome active 3 [facility] Propensity to adverse reactions to drug (finding) active 7 [facility] Immunizations Combined list of available immunizations from the Department of Defense and Veterans Affairs facilities. Immunization Series Date Given Administered By Site Reaction Lot Number CVX Code Drug Traveling Freight Agent Status Comments Source COVID-19 (MODERNA), MRNA, LNP-S, PF, 50 MCG/0.5 ML (AGES 12+ YEARS) 2 2023 312 complet ed HISTORICA L INFORMATI ON - FROM OTHER [facility] INFLUENZA, ADJUVANTED, TRIVALENT, PF 6 2023 168 complet ed HISTORICA L INFORMATI ON - FROM OTHER [facility], [facility] N ZOSTER RECOMBINANT 2 2022 RACHEL WOODRUFF RIGHT DELTO ID [id number] 187 complet ed [facility] ZOSTER RECOMBINANT 2022 KELVIN LEVY RIGHT DELTO ID [id number] 187 complet ed [facility] INFLUENZA, UNSPECIFIED FORMULATION 2021 88 complet ed HISTORICA L INFORMATI ON - [facility] COVID-19 (PFIZER), MRNA, LNP-S, BIVALENT, PF, 30 MCG/0.3 ML DOSE 1 2021 300 complet ed HISTORICA L INFORMATI ON - FROM OTHER [facility], [facility] INFLUENZA VACCINE, QUADRIVALENT, ADJUVANTED 5 2021 205 complet ed HISTORICA L INFORMATI ON - FROM OTHER [facility] N COVID-19 (PFIZER), MRNA, LNP-S, PF, 30 MCG/0.3 ML DOSE, DAWN-SUCROSE (AGES 12+ YEARS) 4 2021 217 complet ed HISTORICA L INFORMATI ON - FROM OTHER [facility] N INFLUENZA VACCINE, QUADRIVALENT, ADJUVANTED 4 2020 205 complet ed HISTORICA L INFORMATI ON - FROM OTHER REGISTRY, [facility] DIVIS N COVID-19 (PFIZER), MRNA, LNP-S, PF, 30 MCG/0.3 ML DOSE 3 2020 208 complet ed HISTORICA L INFORMATI ON - FROM OTHER [facility], [facility] COVID-19 ([facility]), MRNA, LNP-S, PF, 30 MCG/0.3 ML DOSE 2 2020 208 complet ed HISTORICA L INFORMATI ON - FROM OTHER REGISTRY, [facility] COVID-19 ([facility]), MRNA, LNP-S, PF, 30 MCG/0.3 ML DOSE 1 2020 208 complet ed HISTORICA L INFORMATI ON - FROM OTHER [facility], [facility] DIVIO N INFLUENZA, UNSPECIFIED FORMULATION 2019 88 complet ed [facility] N INFLUENZA, RECOMBINANT, QUADRIVALENT, INJECTABLE, PRESERVATIVE FREE 3 2019 185 complet ed HISTORICA L INFORMATI ON - FROM OTHER REGISTRY, [facility] N HEP A-HEP B 1 2019 104 complet ed HISTORICA L INFORMATI ON - FROM OTHER [facility], [facility] N TDAP 1 2019 115 complet ed HISTORICA L INFORMATI ON - FROM OTHER [facility], [facility] N INFLUENZA, HIGH DOSE SEASONAL 2 2018 135 complet ed HISTORICA L INFORMATI ON - FROM OTHER REGISTRY, [facility] INFLUENZA, UNSPECIFIED FORMULATION 2018 88 complet ed [facility] N INFLUENZA, INJECTABLE, QUADRIVALENT, PRESERVATIVE FREE 1 2018 150 complet ed HISTORICA L INFORMATI ON - FROM OTHER [facility], [facility] INFLUENZA, UNSPECIFIED FORMULATION 2017 88 complet ed [facility] DIV[facility] N PNEUMOCOCCAL POLYSACCHARID E [id number] 2016 33 complet ed [facility] N INFLUENZA, UNSPECIFIED FORMULATION 2016 88 complet ed ILLINOI S TDAP 1 2016 115 complet ed HISTORICA L INFORMATI ON - FROM OTHER REGISTRY, [facility] N PNEUMOCOCCAL CONJUGATE PCV 13 2016 133 complet ed by non va pcp [facility] N INFLUENZA, UNSPECIFIED FORMULATION 2016 88 complet ed [facility] N INFLUENZA, HIGH DOSE SEASONAL 1 2015 135 complet ed HISTORICA L INFORMATI ON - FROM OTHER REGISTRY, [facility] N PNEUMOCOCCAL CONJUGATE PCV 13 1 2015 133 complet ed HISTORICA L INFORMATI ON - FROM OTHER REGISTRY, [facility] N TDAP 2013 115 complet ed [facility] N Results Combined list of recent [...] Nov 07, 2023 10:50 AM Reporting Lab: [address] [address] Performing Lab: [address] [address] [facility] BASIC METABOLIC PANEL UREA NITROGEN [MASS/VOLUM E] IN SERUM OR PLASMA 17.7 mg/dL 9.0 - 25.0 11/06 Specimen Type: PLASMA Comment: No hemolysis noted. Ordering Provider: CHRISSY RENAE MM Report Released Date/Time: Nov 07, 2023 10:50 AM Reporting Lab: [address] [address] Performing Lab: [address] [address] [facility] BASIC METABOLIC PANEL GLUCOSE [MASS/VOLUM E] IN SERUM OR PLASMA 136 mg/dL 72 - 99 11/06 H Specimen Type: PLASMA Comment: No hemolysis noted. Ordering Provider: CHRISSY RENAE MM Report Released Date/Time: Nov 07, 2023 10:50 AM Reporting Lab: [address] [address] Performing Lab: [address] [address] [facility] BASIC METABOLIC PANEL SODIUM [MOLES/VOLU ME] IN SERUM OR PLASMA 138 meq/L 136 - 145 11/06 Specimen Type: PLASMA Comment: No hemolysis noted. Ordering Provider: CHRISSY RENAE MM Report Released Date/Time: Nov 07, 2023 10:50 AM Reporting Lab: [address] [address] Performing Lab: [address] [address] [facility] BASIC METABOLIC PANEL POTASSIUM [MOLES/VOLU ME] IN SERUM OR PLASMA 3.5 meq/L 3.5 - 5 11/06 Specimen Type: PLASMA Comment: No hemolysis noted. Ordering Provider: CHRISSY RENAE MM Report Released Date/Time: Nov 07, 2023 10:50 AM Reporting Lab: [address] [address] Performing Lab: [address] [address] [facility] BASIC METABOLIC PANEL CHLORIDE [MOLES/VOLU ME] IN SERUM OR PLASMA 103 meq/L 98 - 107 11/06 Specimen Type: PLASMA Comment: No hemolysis noted. Ordering Provider: CHRISSY RENAE MM Report Released Date/Time: Nov 07, 2023 10:50 AM Reporting Lab: [address] [address] Performing Lab: [address] [address] [facility] BASIC METABOLIC PANEL CARBON DIOXIDE, TOTAL [MOLES/VOLU ME] IN SERUM OR PLASMA 25 meq/L 22 - 31 11/06 Specimen Type: PLASMA Comment: No hemolysis noted. Ordering Provider: CHRISSY RENAE MM Report Released Date/Time: Nov 07, 2023 10:50 AM Reporting Lab: [place] [address] Performing Lab: [address] BASIC METABOLIC PANEL CALCIUM [MASS/VOLUM E] IN SERUM OR PLASMA 10.2 mg/dL 8.4 - 10.4 11/06 Specimen Type: PLASMA Comment: No hemolysis noted. Ordering Provider: CHRISSY RENAE MM Report Released Date/Time: Nov 07, 2023 10:50 AM Reporting Lab: [place] [phone] Performing Lab: [place] [id number] BASIC METABOLIC PANEL GLOMERULAR FILTRATION RATE/1.73 SQ M.PREDICTED [VOLUME RATE/AREA] IN SERUM, PLASMA OR BLOOD BY CREATININE- BASED FORMULA (CKD-EPI 2020) 58.2 60 11/06 Specimen Type: PLASMA Comment: No hemolysis noted. Ordering Provider: CHRISSY RENAE MM Report Released Date/Time: Nov 07, 2023 10:50 AM Reporting Lab: [place] [phone] Performing Lab: [place] [address] [facility] [phone] CBC LEUKOCYTES [#/VOLUME] IN BLOOD BY AUTOMATED COUNT 4.7 10*3/u L 3.6 - 11.2 11/06 Specimen Type: BLOOD No comment entered. Ordering Provider: CHRISSY RENAE MM Report Released Date/Time: Nov 07, 2023 10:50 AM Reporting Lab: [place] [address] [address] Performing Lab: [address] [address] [facility] CBC ERYTHROCYTE S [#/VOLUME] IN BLOOD BY AUTOMATED COUNT 4.60 10*6/u L 4.10 - 5.70 11/06 Specimen Type: BLOOD No comment entered. Ordering Provider: CHRISSY RENAE MM Report Released Date/Time: Nov 07, 2023 10:50 AM Reporting Lab: [place] [phone] Performing Lab: [place] [id number] CBC HEMOGLOBIN [MASS/VOLUM E] IN BLOOD 12.2 g/dL 13.1 - 16.8 11/06 L Specimen Type: BLOOD No comment entered. Ordering Provider: CHRISSY RENAE MM Report Released Date/Time: Nov 07, 2023 10:50 AM Reporting Lab: [place] [phone] Performing Lab: [place] [id number] CBC HEMATOCRIT [VOLUME FRACTION] OF BLOOD 37.8 38.2 - 48.4 11/06 L Specimen Type: BLOOD No comment entered. Ordering Provider: CHRISSY RENAE MM Report Released Date/Time: Nov 07, 2023 10:50 AM Reporting Lab: [place] [phone] Performing Lab: [place] [id number] CBC MCV [ENTITIC VOLUME] BY AUTOMATED COUNT 82.2 fL 80.0 - 100.0 11/06 Specimen Type: BLOOD No comment entered. Ordering Provider: CHRISSY RENAE MM Report Released Date/Time: Nov 07, 2023 10:50 AM Reporting Lab: [address] [place] [address] Performing Lab: [address] [address] [facility] CBC MCH [ENTITIC MASS] BY AUTOMATED COUNT 26.5 pg 27.0 - 34.0 11/06 L Specimen Type: BLOOD No comment entered. Ordering Provider: CHRISSY RENAE MM Report Released Date/Time: Nov 07, 2023 10:50 AM Reporting Lab: [address] [address] Performing Lab: [address] [phone] [address] CBC MCHC [MASS/VOLUM E] BY AUTOMATED COUNT 32.3 g/dL 33.0 - 36.0 11/06 L Specimen Type: BLOOD No comment entered. Ordering Provider: CHRISSY RENAE MM Report Released Date/Time: Nov 07, 2023 10:50 AM Reporting Lab: [address] [address] Performing Lab: [address] [phone] [place] [address] CBC PLATELETS [#/VOLUME] IN BLOOD BY AUTOMATED COUNT 340 10*3/u L 150 - 400 11/06 Specimen Type: BLOOD No comment entered. Ordering Provider: CHRISSY RENAE MM Report Released Date/Time: Nov 07, 2023 10:50 AM Reporting Lab: [address] [address] Performing Lab: [address] [address] [facility] CBC PLATELET MEAN VOLUME [ENTITIC VOLUME] IN BLOOD BY AUTOMATED COUNT 8.6 fL 7.5 - 11.2 11/06 Specimen Type: BLOOD No comment entered. Ordering Provider: CHRISSY RENAE MM Report Released Date/Time: Nov 07, 2023 10:50 AM Reporting Lab: [place] [id number] [facility] [address] Performing Lab: [facility] [address] [facility] [address] [facility] CBC ERYTHROCYTE DISTRIBUTIO N WIDTH [RATIO] BY AUTOMATED COUNT 16.4 11.8 - 15.1 11/06 H Specimen Type: BLOOD No comment entered. Ordering Provider: CHRISSY RENAE MM Report Released Date/Time: Nov 07, 2023 10:50 AM Reporting Lab: [facility] [address] [facility] [address] Performing Lab: [address] [address] [facility] CBC LYMPHOCYTES /100 LEUKOCYTES IN BLOOD BY AUTOMATED COUNT 37 11/06 Specimen Type: BLOOD No comment entered. Ordering Provider: CHRISSY RENAE MM Report Released Date/Time: Nov 07, 2023 10:50 AM Reporting Lab: [facility] [address] [facility] [address] Performing Lab: [facility] [address] [facility] [address] [facility] CBC MONOCYTES/1 00 LEUKOCYTES IN BLOOD BY AUTOMATED COUNT 8 11/06 Specimen Type: BLOOD No comment entered. Ordering Provider: CHRISSY RENAE MM Report Released Date/Time: Nov 07, 2023 10:50 AM Reporting Lab: [address] [address] Performing Lab: [facility] [address] [facility] [address] [facility] CBC NEUTROPHILS /100 LEUKOCYTES IN BLOOD BY AUTOMATED COUNT 51 11/06 Specimen Type: BLOOD No comment entered. Ordering Provider: CHRISSY RENAE MM Report Released Date/Time: Nov 07, 2023 10:50 AM Reporting Lab: [facility] [address] [facility] [address] Performing Lab: [place] [facility] [address] [facility] CBC EOSINOPHILS /100 LEUKOCYTES IN BLOOD BY AUTOMATED COUNT 3 11/06 Specimen Type: BLOOD No comment entered. Ordering Provider: CHRISSY RENAE MM Report Released Date/Time: Nov 07, 2023 10:50 AM Reporting Lab: [address] [address] Performing Lab: [address] [address] [facility] CBC BASOPHILS/1 00 LEUKOCYTES IN BLOOD BY AUTOMATED COUNT 1 11/06 Specimen Type: BLOOD No comment entered. Ordering Provider: CHRISSY RENAE MM Report Released Date/Time: Nov 07, 2023 10:50 AM Reporting Lab: [address] [address] Performing Lab: [address] [address] [facility] CBC LYMPHOCYTES [#/VOLUME] IN BLOOD BY AUTOMATED COUNT 1.74 10*3/u L 0.77 - 4.50 11/06 Specimen Type: BLOOD No comment entered. Ordering Provider: CHRISSY RENAE MM Report Released Date/Time: Nov 07, 2023 10:50 AM Reporting Lab: [address] [address] Performing Lab: [address] [address] [facility] CBC MONOCYTES [#/VOLUME] IN BLOOD BY AUTOMATED COUNT 0.39 10*3/u L 0.19 - 0.80 11/06 Specimen Type: BLOOD No comment entered. Ordering Provider: CHRISSY RENAE MM Report Released Date/Time: Nov 07, 2023 10:50 AM Reporting Lab: [address] [address] Performing Lab: [address] [address] [facility] CBC NEUTROPHILS [#/VOLUME] IN BLOOD BY AUTOMATED COUNT 2.35 10*3/u L 2.10 - 8.00 11/06 Specimen Type: BLOOD No comment entered. Ordering Provider: CHRISSY RENAE MM Report Released Date/Time: Nov 07, 2023 10:50 AM Reporting Lab: [place] [phone] Performing Lab: [place] [id number] CBC EOSINOPHILS [#/VOLUME] IN BLOOD BY AUTOMATED COUNT 0.12 10*3/u L 0.00 - 0.60 11/06 Specimen Type: BLOOD No comment entered. Ordering Provider: CHRISSY RENAE MM Report Released Date/Time: Nov 07, 2023 10:50 AM Reporting Lab: [place] [phone] Performing Lab: [place] [id number] CBC BASOPHILS [#/VOLUME] IN BLOOD BY AUTOMATED COUNT 0.04 10*3/u L 0.00 - 0.20 11/06 Specimen Type: BLOOD No comment entered. Ordering Provider: CHRISSY RENAE MM Report Released Date/Time: Nov 07, 2023 10:50 AM Reporting Lab: [place] [phone] Performing Lab: [place] [id number] GLUCOSE,BL OOD-poct (STL) GLUCOSE [MASS/VOLUM E] IN BLOOD BY AUTOMATED TEST STRIP 112 mg/dL 72 - 99 10/03 H Specimen Type: BLOOD Comment: Test Performed by: [id number] Meter #: [id number] Ordering Provider: ELIJAH STAUFFER Report Released Date/Time: October 03, 2022 04:32 PM Reporting Lab: [address] [address] Performing Lab: [facility] [address] [facility] [address] [facility] Vital Signs Combined list of inpatient and outpatient Vital Signs from Department of Defense and Veterans Affairs, ranging from 12 months to all on record, depending upon the facility. Vital Sign Value Date Comments Source SYSTOLIC BLOOD PRESSURE 126 09/01/2024 15:01:00 [facility] DIASTOLIC BLOOD PRESSURE 79 09/01/2024 15:01:00 [facility] PULSE OXIMETRY 98 09/01/2024 15:01:00 S Billie [facility] WEIGHT 171.6 09/01/2024 15:01:00 [facility] BMI 22 kg/m2 09/01/2024 15:01:00 [facility] PAIN 8 09/01/2024 15:01:00 [facility] TEMPERATURE 97.5 09/01/2024 15:01:00 [facility] PULSE 76 09/01/2024 15:01:00 [facility] RESPIRATION 16 09/01/2024 15:01:00 [facility] SYSTOLIC BLOOD PRESSURE 132 01/16/2024 11:24:44 [facility] DIASTOLIC BLOOD PRESSURE 78 01/16/2024 11:24:44 [facility] PULSE OXIMETRY 97 01/16/2024 11:24:44 [facility] WEIGHT 176 01/16/2024 11:24:44 [facility] BMI 23 kg/m2 01/16/2024 11:24:44 [facility] PAIN 8 01/16/2024 11:24:44 [facility] HEIGHT 74 01/16/2024 11:24:44 [facility] TEMPERATURE 97.8 01/16/2024 11:24:44 [facility] H[facility] PULSE 85 01/16/2024 11:24:44 [facility] Marg[facility]ita [place] [facility] RESPIRATION 18 01/16/2024 11:24:44 [facility] SYSTOLIC BLOOD PRESSURE 150 11/07/2023 10:14:21 [facility] DIASTOLIC BLOOD PRESSURE 92 11/07/2023 10:14:21 [facility] PULSE OXIMETRY 98 11/07/2023 10:14:21 S Billie DEGROOT [facility] WEIGHT 159.7 11/07/2023 10:14:21 [facility] Marg[facility] BMI 21 kg/m2 11/07/2023 10:14:21 RUST Margarita [facility] PAIN 7 11/07/2023 10:14:21 [facility] TEMPERATURE 97.6 11/07/2023 10:14:21 [facility] PULSE 100 11/07/2023 10:14:21 [facility] RESPIRATION 16 11/07/2023 10:14:21 [facility] SYSTOLIC BLOOD PRESSURE 151 10/08/2023 10:23:11 [facility] DIASTOLIC BLOOD PRESSURE 83 10/08/2023 10:23:11 [facility] PULSE OXIMETRY 100 10/08/2023 10:23:11 S Billie E[facility]RA [facility] WEIGHT 176.8 10/08/2023 10:23:11 [facility] BMI 23 kg/m2 10/08/2023 10:23:11 [facility] PAIN 8 10/08/2023 10:23:11 [facility] TEMPERATURE 98.3 10/08/2023 10:23:11 [facility] E[facility] PULSE 96 10/08/2023 10:23:11 [facility] RESPIRATION 18 10/08/2023 10:23:11 [facility] Encounters Combined list of: 1) Encounters from Department of Veterans Affairs facilities going backup to the last 18 months, not all VA inpatient encounters are included; 2) Encounters from the Department of Defense facilities going backup to 280 months. Location Location Details Encounter Type Encounter Number Reason For Visit Attending Provider ADM Date DC Date Status Disposition Source [facility] HC PRO PHONE CALL 11-20 MIN [id number] Diagnos is: ICD-10- CM I63.9 Cerebra l infarct ion, unspeci fied ANA,CAR A A 04/03 [facility] ASSMT/REAS SESSMENT [id number] [id number] Diagnos is: ICD-10- CM M06.9 Rheumat oid arthrit is, unspeci DIONICIO Bolanos 04/12 [facility] Outpatient Encounter [id number] [id number] 3 Jc TREVINO 04/16 [facility] Outpatient Encounter [id number] [id number] 04/17 [facility] ASSMT/REAS SESSMENT [id number] [id number] 8 Diagnos is: ICD-10- CM M25.562 Pain in left knee JESUS HERNANDEZ L 04/22 [facility] Outpatient Encounter [id number] [id number] 3 EM PETIT 04/25 [facility] Outpatient Encounter [id number] [id number] 04/29 [facility] PROGRAM INTAKE ASSESSMENT 50833-2.65 [id number] 9 Diagnos is: ICD-10- CM M25.562 Pain in left knee MANDORCA,L FAISAL L 04/29 [facility] Outpatient Encounter [id number] [id number] 05/14 [facility] Outpatient Encounter [id number] [id number] 06/03 [facility] Outpatient Encounter [id number] [id number] 6 06/19 [facility] LIMIT ORAL EVAL PROBLM FOCUS [id number] [id number] 4 Diagnos is: ICD-10- CM K08.409 Partial loss of teeth, unspeci fied cause, unspeci fied class DAE SO 06/21 [facility] Outpatient Encounter [id number] [id number] 1 ALAYNA ROMAN 06/21 [facility] Outpatient Encounter [id number] [id number] 6 06/25 [facility] Outpatient Encounter [id number] [id number] 3 06/26 [facility] Outpatient Encounter [id number] [id number] 3 06/26 [facility] Outpatient Encounter [id number] [id number] 07/05 [facility] HC PRO PHONE CALL 5-10 MIN [id number] [id number] 9 Diagnos is: ICD-10- CM M25.562 Pain in left knee GABI PEREZ A 07/10 [facility] Outpatient Encounter [id number] [id number] 07/17 [facility] HC PRO PHONE CALL 11-20 MIN [id number] [id number] 4 Diagnos is: ICD-10- CM M54.50 Low back pain, unspeci fied GABI PEREZ A 07/23 [facility] HC PRO PHONE CALL 11-20 MIN [id number] [id number] 5 Diagnos is: ICD-10- CM M25.562 Pain in left knee MARYSTA CY L 07/23 [facility] Outpatient Encounter [id number] [id number] MARYSTA CY L 07/23 [facility] Outpatient Encounter [id number] [id number] 07/25 [facility] HC PRO PHONE CALL 21-30 MIN [id number] [id number] 4 Diagnos is: ICD-10- CM M25.562 Pain in left knee MARYSTA CY L 07/28 [facility] PT EDUCATION NOC INDIVID [id number] [id number] 8 Diagnos is: ICD-10- CM I63.9 Cerebra l infarct ion, unspeci fied THOMPSON EPPERSON M 07/29 [facility] PROGRAM INTAKE ASSESSMENT [id number] [id number] 6 Diagnos is: ICD-10- CM M25.562 Pain in left knee MANDORCA,L FAISAL L 08/01 [facility] Outpatient Encounter [id number] 1 08/04 [facility] Outpatient Encounter [id number] 08/18 [facility] Outpatient Encounter [id number] 2 VIOLETT,RE NEE D 08/20 [facility] HC PRO PHONE CALL 11-20 MIN [id number] 2 Diagnos is: ICD-10- CM M54.50 Low back pain, unspeci fied POORNIMASHAYNADomenic A L 08/20 [facility] Outpatient Encounter [id number] [id number] 4 EM PETIT L 08/25 [facility] HC PRO PHONE CALL 21-30 MIN [id number]. [id number] 3 Diagnos is: ICD-10- CM I63.9 Cerebra l infarct ion, unspeci fied ANA,CAR A A 08/27 [facility] PROGRAM INTAKE ASSESSMENT [id number] 8 Diagnos is: ICD-10- CM M06.9 Rheumat oid arthrit is, unspeci fied Margarita VENEGAS FAISAL L 08/28 [facility] Outpatient Encounter [id number] 8 VIOLETT,RE NEE D 09/02 [facility] REMOVABLE PROSTHODON TIC PROC 43505-1 [id number] 2 Diagnos is: ICD-10- CM K08.409 Partial loss of teeth, unspeci fied cause, unspeci fied class DAE SO 09/02 [facility] HC PRO PHONE CALL 21-30 MIN [id number] [id number] 0 Diagnos is: ICD-10- CM M54.50 Low back pain, unspeci fied LASHA NOGUERA L 09/02 [facility] Outpatient Encounter [id number] [id number] LASHA NOGUERA L 09/02 [facility] PRO PHONE CALL 5-10 MIN 49522-6.65 [id number] 6 Diagnos is: ICD-10- CM I63.9 Cerebra l infarct ion, unspeci fied ANA,CAR A A 09/17 [facility] Outpatient Encounter [id number] [id number] 09/17 [facility] PRO PHONE CALL 21-30 MIN 75907-3.65 [id number] 1 Diagnos is: ICD-10- CM I63.9 Cerebra l infarct ion, unspeci fied ANA,CAR A A 09/19 [facility] Outpatient Encounter [id number] [id number] 0 TIFFANY IRVIN 09/22 [facility] REMOVABLE PROSTHODON TIC PROC [id number] [id number] 5 Diagnos is: ICD-10- CM K08.409 Partial loss of teeth, unspeci fied cause, unspeci fied class DAE SO 09/25 [facility] Outpatient Encounter [id number] [id number] 3 10/01 [facility] Outpatient Encounter [id number] [id number] 5 ESTHER LEVY 10/02 [facility] Outpatient Encounter [id number]. [id number] 10/07 [facility] Outpatient Encounter [id number] [id number] Diagnos is: ICD-10- CM Z00.00 Encntr for general adult medical exam w/o abnorma l finding s ELIJAH STAUFFER BY R 10/07 [facility] REMOVABLE PROSTHODON TIC PROC 27289-4 [id number] 2 Diagnos is: ICD-10- CM K08.409 Partial loss of teeth, unspeci fied cause, unspeci fied class DAE SO 10/07 [facility] Outpatient Encounter [id number] [id number] 10/07 [facility] Outpatient Encounter [id number] [id number] 10/07 [facility] Outpatient Encounter [id number] [id number] 4 10/09 [facility] HC PRO PHONE CALL 21-30 MIN [id number] [id number] 9 Diagnos is: ICD-10- CM I63.9 Cerebra l infarct ion, unspeci fied ANACAR A A 10/20 [facility] REMOVABLE PROSTHODON TIC PROC [id number] [id number] 9 Diagnos is: ICD-10- CM K08.409 Partial loss of teeth, unspeci fied cause, unspeci fied class DAE SO 10/28 [facility] Outpatient Encounter [id number] [id number] ELIJAH STAUFFER BY Sana 11/04 [facility] OFFICE O/P NEW LOW 30 MIN [id number] [id number] 7 Diagnos is: ICD-10- CM R21 Rash and other nonspec ific skin eruptio n TATA LUU I A 11/06 [facility] Outpatient Encounter [id number] [id number] ELIJAH STAUFFER BY Sana 11/06 [facility] Outpatient Encounter [id number] [id number] 11/06 [facility] Outpatient Encounter 01240-2.65 [id number] 7 11/06 [facility] Outpatient Encounter 83800-8.65 [id number] 0 Diagnos is: ICD-10- CM Z04.89 Encount er for examina tion and observa tion for oth reasons CARLOS MINOR IEMargarita P 11/06 [facility] REMOVABLE PROSTHODON TIC PROC 72777-3.65 [id number] 9 Diagnos is: ICD-10- CM K08.409 Partial loss of teeth, unspeci fied cause, unspeci fied class DAE SO 11/17 [facility] Outpatient Encounter 94589-4.65 [id number] EM PETIT L 11/18 [facility] Outpatient Encounter [id number] [id number] 2 EM PETIT L 11/20 [facility] [place] [address]-9.65 [id number] 8 Diagnos is: ICD-10- CM K08.409 Partial loss of teeth, unspeci fied cause, unspeci fied class DAE SO 12/01 [facility] THERAPEUTI C EXERCISES 45908-0.65 [id number] 0 Diagnos is: ICD-10- CM M25.512 Pain in left shoulde r CAROLINA HOWELL 12/04 [facility] Outpatient Encounter [id number] [id number] SHERRY GONGORA 12/04 [facility] Outpatient Encounter 06514-4.65 [id number] EM PETIT L 12/04 [facility] OFFICE O/P NEW MOD 45 MIN 18655-6.65 [id number] 7 Diagnos is: ICD-10- CM I48.0 Paroxys mal atrial fibrill ation LOUISE CUBA 12/09 [facility] Outpatient Encounter [id number] [id number] 3 PETIT,EM ELYN L 12/10 [facility] Outpatient Encounter [id number] [id number] 0 PETIT,EV ELYN L 12/10 [facility] Outpatient Encounter [id number] [id number] 1 12/11 [facility] REMOVABLE PROSTHODON TIC PROC [id number] [id number] 3 Diagnos is: ICD-10- CM K08.409 Partial loss of teeth, unspeci fied cause, unspeci fied class DAE SO 12/19 [facility] Outpatient Encounter [id number] [id number] 12/22 [facility] Outpatient Encounter 76038-4.65 [id number] 8 12/23 [facility] Outpatient Encounter 45075-7.65 [id number] 12/29 [facility] Outpatient Encounter 24040-3.65 [id number] 8 12/29 [facility] PT EDUCATION NOC INDIVID 00699-5.65 [id number] 2 Diagnos is: ICD-10- CM I63.9 Cerebra l infarct ion, unspeci fied ANA,CAR A A 01/13 [facility] OFFICE O/P EST SF 10 MIN [id number] [id number] 4 Diagnos is: ICD-10- CM R21 Rash and other nonspec ific skin eruptio Lucia Farooq E 01/15 [facility] REMOVABLE PROSTHODON TIC PROC [id number] [id number] 0 Diagnos is: ICD-10- CM K08.409 Partial loss of teeth, unspeci fied cause, unspeci fied class DAE SO 01/16 [facility] Outpatient Encounter [id number] [id number] 3 EM PEITT 01/16 [facility] Outpatient Encounter [id number] 7 EM PETIT 01/20 [facility] Outpatient Encounter [id number] 0 01/23 [facility] Outpatient Encounter [id number] 9 02/03 [facility] REMOVABLE PROSTHODON TIC PROC 44066-4 [id number] 7 Diagnos is: ICD-10- CM K08.409 Partial loss of teeth, unspeci fied cause, unspeci fied class DAE SO 02/09 [facility] Outpatient Encounter 81394-7 [id number] 6 TIFFANY IRVIN 02/20 [facility] THERAPEUTI C EXERCISES 17568-4.65 [id number] Diagnos is: ICD-10- CM M25.569 Pain in unspeci fied knee MINA SHER 02/27 [facility] Outpatient Encounter [id number] 1 03/11 [facility] Outpatient Encounter 38658-4 [id number] 7 03/11 [facility] Outpatient Encounter 51990-9.65 [id number] 03/16 [facility] Outpatient Encounter [id number] [id number] 0 03/16 [facility] Outpatient Encounter 83173-7.65 [id number] RAMIREZSAMSON GAVIRIAM Heath 03/30 [facility] Outpatient Encounter 93151-3.65 [id number] 0 ANA,GABI Lu A 04/01 [facility] Outpatient Encounter 96281-3.65 [id number] 1 04/03 [facility] PT EDUCATION NOC INDIVID 48804-6.65 [id number] 9 Diagnos is: ICD-10- CM I63.9 Cerebra l infarct ion, unspeci fied ANAGABI Lu A 04/27 [facility] Outpatient Encounter 55670-8.65 [id number] 0 PETIT,EM Avila 04/29 [facility] Outpatient Encounter 30888-2.65 [id number] 2 05/25 [facility] Outpatient Encounter 48742-8.65 [id number] 3 06/10 [facility] Outpatient Encounter 77276-5.65 [id number] 06/16 [facility] Outpatient Encounter 28533-4.65 [id number] 2 06/16 [facility] Outpatient Encounter [id number] [id number] 4 07/14 [facility] Outpatient Encounter [id number] [id number] 2 07/22 [facility] Outpatient Encounter [id number] [id number] 4 08/06 [facility] ASSMT/REAS SESSMENT 51425-2.65 [id number] 4 Diagnos is: ICD-10- CM I63.9 Cerebra l infarct ion, unspeci fied ANA,CAR A A 09/01 [facility] Outpatient Encounter 93795-2.65 [id number] 4 09/01 [facility] Outpatient Encounter [id number] [id number] 09/01 [facility] OFFICE O/P EST HI 40 MIN 77080-3.65 [id number] 7 Diagnos is: ICD-10- CM I48.0 Paroxys mal atrial fibrill LOUISE Fuentes 09/01 [facility] Outpatient Encounter [id number] [id number] 6 09/10 [facility] Outpatient Encounter 51622-9.65 [id number] 09/28 [facility] Social History Combined list of available smoking, tobacco, and other social history from Department of Defense and Veterans Affairs facilities. Social History Type Response Date Comment [facility] e Tobacco smoking status NHIS [place]-TO[place] NEVER USED 10/08/2023 [facility] History of tobacco use [place]-TOBACCO NEVER USED 03/30/2022 [facility] History of tobacco use [place]-TOBACCO NEVER USED 05/26/2020 [facility] History of tobacco use [place]-TOBACCO NEVER USED 07/30/2018 [facility] History of tobacco use LIFETIME NON-USER OF TOBACCO 08/01/2016 [facility] History of tobacco use LIFETIME NON-USER OF TOBACCO 07/25/2015 [facility] This section is an empty social history section. [facility] Plan of Care List of future care activities from Department of Veterans [facility] facilities. Additional future care activities may be listed in the Assessment and Plan section. Date/Time Care Activity Care Activity Detail Facili ty 10/13/2024 AMBULATORY - MEDICINE AMBULATORY - MEDICI NE [facility] Advance Directives List of completed, amended, or rescinded Advance Directives on record at [facility] facilities. An actual copy of the Directive is not included. Date Advance Directive Provider Source 12/08/2020 ADVANCE DIRECTIVE MARYCRUZ SANABRIA [facility]
[2024-10-02 09:22] LABS: Basophils Percent Auto 0.3 % (0.2-1.2); Eosinophils Percent Auto 0.5 % (0-4.4); Hematocrit 41.6 % (42.0-52.0); Hemoglobin 13.8 g/dL (14.0-18.0); Immature Granulocyte Absolute 0.02 K/mm3 (0.00-0.031); Immature Granulocyte Percent A 0.3 % (0-0.5); Lymphocytes Absolute Auto 1.25 K/mm3 (0.9-3.2); Lymphocytes Percent Auto 16.8 % (18.3-44.2); Mean Corpuscular HGB Conc 33.2 g/dl (32-36); Mean Corpuscular Hemoglobin 28.6 pg (26-34); Mean Corpuscular Volume 86.1 fl (80-100); Mean Platelet Volume 8.3 fl (7.4-10.4); Monocytes Absolute Auto 0.5 K/mm3 (0.1-0.6); Neutrophils Absolute Auto 5.7 K/mm3 (1.3-6.7); Neutrophils Percent Auto 76.1 % (45.5-73.1); Platelet Count Result 260 k/mm3 (150-375); Red Blood Count 4.83 M/mm3 (4.6-6.20); Red Cell Distribution Width 14.6 % (11.5-14.5); White Blood Count 7.5 K/mm3 (4.5-10.0)
[2024-10-02 09:32] LABS: Alanine Aminotransferase 23 U/L (6-50); Albumin Level 4.4 g/dL (3.5-5.1); Alkaline Phosphatase 76 U/L (38-126); Anion Gap 9 mmol/L (4-12); Aspartate Amino Transferase 34 U/L (17-59); Bilirubin,Total 1.9 mg/dL (0.2-1.3); Blood Urea Nitrogen 12 mg/dL (9-20); Calcium 9.5 mg/dL (8.4-10.2); Carbon Dioxide 28 mmol/L (22-30); Chloride 105 mmol/L (98-107); Estimated CRCL calculation 60 ml/min; Estimated Glomerular Filt Rate > 60; Glucose 131 mg/dL (65-110); Lipase 52 U/L (23-300); Potassium 3.7 mmol/L (3.4-5.0); Sodium 142 mmol/L (137-145)
--- NOTE | 2024-10-02 09:45 | ED.GENADULT ---
HPI - General Adult General Chief complaint: Unspecified Stated complaint: I have a hard time swallowing Time Seen by Provider: 10/02/24 09:01 History of Present Illness HPI narrative: Patient is a 74-year-old male who presents to the ER with a 2-3 day history of difficulty swallowing. He reports he ate stew and it has been test to eat swallow since then. Patient reports he has a history of an esophageal dilatation. He denies any drooling, vomiting or difficulty swallowing secretions. Patient endorses a history of high blood pressure, diabetes, knee surgery and atrial fibrillation. He reports he does have a PCP who prescribes all of his daily medications. Related Data Home Medications ?Medication ?Instructions ?Recorded ?Confirmed ?Last Taken ?Type amlodipine 5 mg tablet 5 mg PO DAILY 01/01/23 01/01/23 Unknown History aspirin 81 mg chewable tablet 81 mg PO Q48H 01/01/23 01/01/23 Unknown History (Aspirin Childrens) atorvastatin 80 mg tablet 80 mg PO HS 01/01/23 01/01/23 Unknown History bethanechol chloride 10 mg tablet 10 mg PO TID 01/01/23 01/01/23 Unknown History brimonidine 0.2 % eye drops 1 drp EACH EYE BID 01/01/23 01/01/23 Unknown History cholecalciferol (vitamin D3) 25 50 mcg PO DAILY 01/01/23 01/01/23 Unknown History mcg (1,000 unit) tablet clopidogrel 75 mg tablet (Plavix) 75 mg PO DAILY 01/01/23 01/01/23 Unknown History finasteride 5 mg tablet 5 mg PO DAILY 01/01/23 01/01/23 Unknown History folic acid-vit B6-vit B12 2.2 1 tablet PO DAILY 01/01/23 01/01/23 Unknown History mg-25 mg-1 mg tablet (Virt-Neeta) hydrocodone 10 mg-acetaminophen 1 tablet PO Q48H PRN Pain (Scale 01/01/23 01/01/23 Unknown History 325 mg tablet Score 7-10) hydroxychloroquine 200 mg tablet 200 mg PO BID 01/01/23 01/01/23 Unknown History insulin aspart U-100 100 unit/mL 2 unit subcut QAM 01/01/23 01/01/23 Unknown History subcutaneous solution levetiracetam 500 mg tablet 1,000 mg PO BID 01/01/23 01/01/23 Unknown History lipase 10,500-protease 3 cap PO TID 01/01/23 01/01/23 Unknown History 35,500-amylase 61,500 unit capsule,delayed rel (Pancreaze) magnesium oxide 400 mg PO DAILY 01/01/23 01/01/23 Unknown History metformin 1,000 mg tablet 1,000 mg PO BIDWMEAL 01/01/23 01/01/23 Unknown History pantoprazole 40 mg tablet,delayed 40 mg PO QAM 01/01/23 01/01/23 Unknown History release pregabalin 100 mg capsule 100 mg PO QAM 01/01/23 01/01/23 Unknown History pregabalin 100 mg capsule 200 mg PO HS 01/01/23 01/01/23 Unknown History pyridoxine (vitamin B6) 50 mg 50 mg PO DAILY 01/01/23 01/01/23 Unknown History tablet sitagliptin phosphate 100 mg tablet 100 mg PO DAILY 01/01/23 01/01/23 Unknown History sotalol 80 mg tablet 120 mg PO BID 01/01/23 01/01/23 Unknown History tamsulosin 0.4 mg capsule 0.4 mg PO BID 01/01/23 01/01/23 Unknown History Allergies Allergy/AdvReac Type Severity Reaction Status Date / Time peanut Allergy Intermediate Swelling Verified 10/02/24 13:59 aspirin Allergy Mild aggravates Verified 10/02/24 13:59 stomach banana Allergy Unknown Itching Verified 10/02/24 13:59 latex Allergy Unknown Itching Verified 10/02/24 13:59 Penicillins Allergy Unknown Swelling Verified 10/02/24 13:59 Sulfa (Sulfonamide Allergy Unknown Swelling Verified 10/02/24 13:59 Antibiotics) celecoxib (From Celebrex) Allergy Swelling Verified 10/02/24 13:59 infliximab (From Remicade) Allergy Unknown Verified 10/02/24 13:59 meloxicam (From Mobic) Allergy Itching Verified 10/02/24 13:59 metoclopramide Allergy Unknown Verified 10/02/24 13:59 lisinopril AdvReac Swelling Verified 10/02/24 13:59 Review of Systems Review of Systems: All systems reviewed & are unremarkable except as noted in HPI and below PMFSH Past Medical History Medical History Hypertension Hyperlipidemia Diabetes mellitus BPH (benign prostatic hyperplasia) Atrial fibrillation Family History Family History Father Lung disease Mother Heart attack Social History Social History Smoking status: Never smoker Alcohol intake: never Substance use: never Substance use type: does not use Spiritual care concerns: No Exam Narrative: GENERAL: Well appearing, well-nourished, non-toxic, in no acute distress. HEAD: Normocephalic, atraumatic. NECK: Supple. No adenopathy, no masses. RESPIRATORY: Airway patent, respirations nonlabored. Clear to auscultation bilaterally, no rales, rhonchi, wheezing. CARDIOVASCULAR: Regular rate and rhythm without murmurs, rubs, or gallops. Peripheral pulses 2+ and equal bilaterally. ABDOMINAL: Soft, nontender, nondistended, no hepatosplenomegaly. Normoactive BS. MUSCULOSKELETAL: Moves all extremities. Strength/ROM intact without gross deformities. SKIN: Warm, dry, normal color. No rashes. NEURO: A&O X3. Speech clear. Cranial nerves II-XII intact. No ataxic movements. PSYCHIATRIC: Appropriate mood and affect. Normal interaction. Course Vital Signs Vital signs: Vital Signs Temperature 36.6 C 10/02/24 09:10 Pulse Rate 94 10/02/24 09:10 Respiratory Rate 18 10/02/24 09:10 Blood Pressure 161/99 H 10/02/24 09:10 Pulse Oximetry 100 10/02/24 09:10 Oxygen Delivery Room Air 10/02/24 09:10 Temperature 36.4 C 10/02/24 14:02 Pulse Rate 71 10/02/24 16:35 Respiratory Rate 23 H 10/02/24 16:35 Blood Pressure 171/98 H 10/02/24 16:35 Pulse Oximetry 100 10/02/24 16:35 Oxygen Delivery Room Air 10/02/24 16:35 Medical Decision Making MDM Narrative Medical decision making narrative: Patient is a 74-year-old male who presents to the ER with a 2-3 day history of difficulty swallowing. He reports he ate stew and it has been test to eat swallow since then. Pt reports it feels as though the object is stuck in his midsternal Patient reports he has a history of an esophageal dilatation. He denies any drooling, vomiting or difficulty swallowing secretions. Patient endorses a history of high blood pressure, diabetes, knee surgery and atrial fibrillation. He reports he does have a PCP who prescribes all of his daily medications. Labs Ordered: CBC, CMP, lipase, UA, INR, PTT Imaging Ordered: Chest x-ray Medications Ordered: Glucagon 1 mg IM Results: Chest x-ray indicates The lungs remain clear with no focal airspace opacities, pulmonary edema, pleural effusion or pneumothorax. Arch size is normal. Atherosclerotic coronary artery calcifications. Mild thoracic spondylosis with bridging osteophytes at multiple levels consistent with diffuse idiopathic skeletal hyperostosis (DISH). Cholecystectomy clips in right upper quadrant. Status post distal right clavicle resection. Diagnosis: food bolus Consults: 1040- Spoke with GI, Dr. Mead, who plans to bring pt to the GI lab for dilation later today. Patient Education/Shared MDM: Results of lab work and imaging shared with patient. He denies any improvement of symptoms. Plan for GI lab shared with pt. He verbalizes understanding and is in agreement with plan. 1330- Patient left department on stretcher. Vital signs stable. Vital Signs Vital Signs: Vital Signs Temperature 36.6 C 10/02/24 09:10 Pulse Rate 94 10/02/24 09:10 Respiratory Rate 18 10/02/24 09:10 Blood Pressure 161/99 H 10/02/24 09:10 Pulse Oximetry 100 10/02/24 09:10 Oxygen Delivery Room Air 10/02/24 09:10 Temperature 36.4 C 10/02/24 14:02 Pulse Rate 71 10/02/24 16:35 Respiratory Rate 23 H 10/02/24 16:35 Blood Pressure 171/98 H 10/02/24 16:35 Pulse Oximetry 100 10/02/24 16:35 Oxygen Delivery Room Air 10/02/24 16:35 Lab Data Lab results reviewed: Yes I reviewed the patient's lab results. 10/02/24 09:16 10/02/24 09:16 Labs: Lab Results 10/02/24 10/02/24 10/02/24 Range/Units 09:16 09:54 13:54 WBC 7.5 (4.5-10.0) K/mm3 RBC 4.83 (4.6-6.20) M/mm3 Hgb 13.8 L (14.0-18.0) g/dL Hct 41.6 L (42.0-52.0) % MCV 86.1 (80-100) fl MCH 28.6 (26-34) pg MCHC 33.2 (32-36) g/dl RDW 14.6 H (11.5-14.5) % Plt Count 260 (150-375) k/mm3 MPV 8.3 (7.4-10.4) fl Immature Gran % (Auto) 0.3 (0-0.5) % Neut % (Auto) 76.1 H (45.5-73.1) % Lymph % (Auto) 16.8 L (18.3-44.2) % [place] % (Auto) 6.0 (2.6-8.5) % Eos % (Auto) 0.5 (0-4.4) % Baso % (Auto) 0.3 (0.2-1.2) % Lymph # (Auto) 1.25 (0.9-3.2) K/mm3 [place] # (Auto) 0.5 (0.1-0.6) K/mm3 Eos # (Auto) 0.0 (0-0.3) K/mm3 Baso # (Auto) 0.0 (0.0-0.1) K/mm3 Abs Immat Gran (auto) 0.02 (0.00-0.031) K/mm3 Absolute Neuts (auto) 5.7 (1.3-6.7) K/mm3 Absolute Nucleated RBC 0.000 (0.0-0.012) K/mm3 Nucleated RBC % 0.0 (0.0-0.2) % PT 14.4 (11.1-14.7) Seconds INR 1.1 APTT 33.1 (22.3-36.8) Seconds Sodium 142 (137-145) mmol/L Potassium 3.7 (3.4-5.0) mmol/L Chloride 105 (98-107) mmol/L Carbon Dioxide 28 (22-30) mmol/L Anion Gap 9 (4-12) mmol/L BUN 12 (9-20) mg/dL Creatinine 0.99 (0.7-1.3) mg/dL Estim Creat Clear Calc 60 ml/min Estimated GFR > 60 (59 - ) Glucose 131 H (65-110) mg/dL POC Capillary Glucose 121 H (65-105) mg/dl Calcium 9.5 (8.4-10.2) mg/dL Total Bilirubin 1.9 H (0.2-1.3) mg/dL AST 34 (17-59) U/L ALT 23 (6-50) U/L Alkaline Phosphatase 76 (38-126) U/L Total Protein 9.0 H (6.3-8.2) g/dL Albumin 4.4 (3.5-5.1) g/dL Lipase 52 (23-300) U/L Urine Color Yellow (Yellow) Urine Appearance Clear (Clear) Urine pH 5.5 (5.0-9.0) Ur Specific [place] 1.015 (1.001-1.035) Urine Protein Negative (Negative) mg/dL Urine Glucose (UA) Negative (Negative) mg/dL Urine Ketones Trace H (Negative) mg/dL Ur Blood (Man) Trace (Negative) Urine Nitrate Negative (Negative) Urine Bilirubin Negative (Negative) Urine Urobilinogen 0.2 (<2.0) mg/dL Leukocyte Esterase Rfl Trace H (Negative) HINA/UL Urine RBC 0-2 (0-2) /hpf Urine WBC 0-5 (0-3) /hpf Ur Squamous Epith Cells None seen (Few) /hpf Urine Bacteria None seen /hpf Urine Casts 0-2 Imaging Data Attestation: I personally reviewed and interpreted this imaging study as follows: Radiologist's impression: Impressions Chest X-Ray 10/02/24 10:05 IMPRESSION: 1. No acute cardiopulmonary disease. Discharge Plan Discharge Clinical Impression: Esophageal obstruction due to food impaction Patient Disposition: Still a Patient Condition: Stable
[2024-10-02 10:04] LABS: Add Urine Microscopic? YES; Appearance Urine Clear (Clear); Bacteria Urine None Seen /hpf; Bilirubin Urine Negative (Negative); Blood Urine Trace (Negative); Color Urine Yellow (Yellow); Glucose Urine UA Negative (Negative); Ketones Urine Trace mg/dL (Negative); Leukocyte Esterase Ur Trace LEU/UL (Negative); Nitrate Urine Negative (Negative); Non Pathogenic Casts 0-2; Protein Urine Negative (Negative); RBC Urine 0-2 /hpf (0-2); Specific Grav Ur 1.015 (1.001-1.035); Squamous Epithelial Cell Urine None Seen /hpf (Few); Urobilinogen Urine 0.2 mg/dL (<2.0); WBC Urine 0-5 /hpf (0-3); pH Urine 5.5 (5.0-9.0)
[2024-10-02] MEDS: GLUCAGON FOR INJ 1 MG VIAL IM (10:11)
[2024-10-02 10:12] LABS: INR 1.1; Prothrombin Time 14.4 Seconds (11.1-14.7)
[2024-10-02 10:13] LABS: Partial Thromboplastin Time 33.1 Seconds (22.3-36.8)
[2024-10-02 13:56] LABS: Glucose Point of Care 121 mg/dl (65-105)
[2024-10-02] MEDS: LACTATED RINGERS 1,000 ML 150 ML IV CONT ×2 (14:15→16:00)
--- NOTE | 2024-10-02 15:04 | P.PNAN_ITS ---
Anes - Initial Pre Proc Eval Procedure: Operation Date: 10/02/24 14:45 Proposed Procedures p Esophagogastroduodenoscopy - Thomas Mead MD Date/Time: 10/02/24 15:04 Pre Op Diagnosis: I have a hard time swallowing Patient Data Age: 74 Gender: M Height: 1.88 m Weight: 74.8 kg Last Vital Signs Temp 36.4 C 10/02/24 14:02 Pulse 72 10/02/24 14:02 Resp 16 10/02/24 14:02 BP 162/92 H 10/02/24 14:02 Pulse Ox 100 10/02/24 14:02 O2 Del Method Room Air 10/02/24 14:02 Allergies Allergy/AdvReac Type Severity Reaction Status Date / Time peanut Allergy Intermediate Swelling Verified 10/02/24 13:59 aspirin Allergy Mild aggravates Verified 10/02/24 13:59 stomach banana Allergy Unknown Itching Verified 10/02/24 13:59 latex Allergy Unknown Itching Verified 10/02/24 13:59 Penicillins Allergy Unknown Swelling Verified 10/02/24 13:59 Sulfa (Sulfonamide Allergy Unknown Swelling Verified 10/02/24 13:59 Antibiotics) celecoxib (From Celebrex) Allergy Swelling Verified 10/02/24 13:59 infliximab (From Remicade) Allergy Unknown Verified 10/02/24 13:59 meloxicam (From Mobic) Allergy Itching Verified 10/02/24 13:59 metoclopramide Allergy Unknown Verified 10/02/24 13:59 lisinopril AdvReac Swelling Verified 10/02/24 13:59 Home Medications ?Medication ?Instructions ?Recorded ?Confirmed ?Type amlodipine 5 mg tablet 5 mg PO DAILY 01/01/23 01/01/23 History aspirin 81 mg chewable tablet 81 mg PO Q48H 01/01/23 01/01/23 History (Aspirin Childrens) atorvastatin 80 mg tablet 80 mg PO HS 01/01/23 01/01/23 History bethanechol chloride 10 mg tablet 10 mg PO TID 01/01/23 01/01/23 History brimonidine 0.2 % eye drops 1 drp EACH EYE BID 01/01/23 01/01/23 History cholecalciferol (vitamin D3) 25 50 mcg PO DAILY 01/01/23 01/01/23 History mcg (1,000 unit) tablet clopidogrel 75 mg tablet (Plavix) 75 mg PO DAILY 01/01/23 01/01/23 History finasteride 5 mg tablet 5 mg PO DAILY 01/01/23 01/01/23 History folic acid-vit B6-vit B12 2.2 1 tablet PO DAILY 01/01/23 01/01/23 History mg-25 mg-1 mg tablet (Virt-Neeta) hydrocodone 10 mg-acetaminophen 1 tablet PO Q48H PRN Pain (Scale 01/01/23 01/01/23 History 325 mg tablet Score 7-10) hydroxychloroquine 200 mg tablet 200 mg PO BID 01/01/23 01/01/23 History insulin aspart U-100 100 unit/mL 2 unit subcut QAM 01/01/23 01/01/23 History subcutaneous solution levetiracetam 500 mg tablet 1,000 mg PO BID 01/01/23 01/01/23 History lipase 10,500-protease 3 cap PO TID 01/01/23 01/01/23 History 35,500-amylase 61,500 unit capsule,delayed rel (Pancreaze) magnesium oxide 400 mg PO DAILY 01/01/23 01/01/23 History metformin 1,000 mg tablet 1,000 mg PO BIDWMEAL 01/01/23 01/01/23 History pantoprazole 40 mg tablet,delayed 40 mg PO QAM 01/01/23 01/01/23 History release pregabalin 100 mg capsule 100 mg PO QAM 01/01/23 01/01/23 History pregabalin 100 mg capsule 200 mg PO HS 01/01/23 01/01/23 History pyridoxine (vitamin B6) 50 mg 50 mg PO DAILY 01/01/23 01/01/23 History tablet sitagliptin phosphate 100 mg tablet 100 mg PO DAILY 01/01/23 01/01/23 History sotalol 80 mg tablet 120 mg PO BID 01/01/23 01/01/23 History tamsulosin 0.4 mg capsule 0.4 mg PO BID 01/01/23 01/01/23 History cyanocobalamin (vitamin B-12) 1,000 mcg IM MONTHLY #0 mL 01/11/23 Rx 1,000 mcg/mL injection solution sennosides 8.6 mg-docusate sodium 1 tab PO HS #14 tabs 01/11/23 Rx 50 mg tablet (Senokot-S) methylprednisolone 4 mg tablets in See Rx Instructions PO .COMPLEX 10/31/23 Rx a dose pack (Medrol (Ricardo)) #21 ea Laboratory Tests 10/02/24 10/02/24 10/02/24 09:16 09:54 13:54 WBC 7.5 K/mm3 (4.5-10.0) RBC 4.83 M/mm3 (4.6-6.20) Hgb 13.8 L g/dL (14.0-18.0) Hct 41.6 L % (42.0-52.0) MCV 86.1 fl (80-100) MCH 28.6 pg (26-34) MCHC 33.2 g/dl (32-36) RDW 14.6 H % (11.5-14.5) Plt Count 260 k/mm3 (150-375) MPV 8.3 fl (7.4-10.4) Immature Gran % (Auto) 0.3 % (0-0.5) Neut % (Auto) 76.1 H % (45.5-73.1) Lymph % (Auto) 16.8 L % (18.3-44.2) [place] % (Auto) 6.0 % (2.6-8.5) Eos % (Auto) 0.5 % (0-4.4) Baso % (Auto) 0.3 % (0.2-1.2) Lymph # (Auto) 1.25 K/mm3 (0.9-3.2) [place] # (Auto) 0.5 K/mm3 (0.1-0.6) Eos # (Auto) 0.0 K/mm3 (0-0.3) Baso # (Auto) 0.0 K/mm3 (0.0-0.1) Abs Immat Gran (auto) 0.02 K/mm3 (0.00-0.031) Absolute Neuts (auto) 5.7 K/mm3 (1.3-6.7) Absolute Nucleated RBC 0.000 K/mm3 (0.0-0.012) Nucleated RBC % 0.0 % (0.0-0.2) PT 14.4 Seconds (11.1-14.7) INR 1.1 APTT 33.1 Seconds (22.3-36.8) Sodium 142 mmol/L (137-145) Potassium 3.7 mmol/L (3.4-5.0) Chloride 105 mmol/L (98-107) Carbon Dioxide 28 mmol/L (22-30) Anion Gap 9 mmol/L (4-12) BUN 12 mg/dL (9-20) Creatinine 0.99 mg/dL (0.7-1.3) Estim Creat Clear Calc 60 ml/min Estimated GFR > 60 (59 - ) Glucose 131 H mg/dL (65-110) POC Capillary Glucose 121 H mg/dl (65-105) Calcium 9.5 mg/dL (8.4-10.2) Total Bilirubin 1.9 H mg/dL (0.2-1.3) AST 34 U/L (17-59) ALT 23 U/L (6-50) Alkaline Phosphatase 76 U/L (38-126) Total Protein 9.0 H g/dL (6.3-8.2) Albumin 4.4 g/dL (3.5-5.1) Lipase 52 U/L (23-300) Urine Color Yellow (Yellow) Urine Appearance Clear (Clear) Urine pH 5.5 (5.0-9.0) Ur Specific [place] 1.015 (1.001-1.035) Urine Protein Negative mg/dL (Negative) Urine Glucose (UA) Negative mg/dL (Negative) Urine Ketones Trace H mg/dL (Negative) Ur Blood (Man) Trace (Negative) Urine Nitrate Negative (Negative) Urine Bilirubin Negative (Negative) Urine Urobilinogen 0.2 mg/dL (<2.0) Leukocyte Esterase Rfl Trace H HINA/UL (Negative) Urine RBC 0-2 /hpf (0-2) Urine WBC 0-5 /hpf (0-3) Ur Squamous Epith Cells None seen /hpf (Few) Urine Bacteria None seen /hpf Urine Casts 0-2 Patient hx anesthesia problems: none Family hx anesthesia problems: none Results Review: All pre-operative results and documents have been reviewed as part of the pre- operative evaluation. [facility] Past Medical History Medical History Hypertension Hyperlipidemia Diabetes mellitus BPH (benign prostatic hyperplasia) Atrial fibrillation Family History Family History Father Lung disease Mother Heart attack Social History Social History Smoking status: Never smoker Alcohol intake: never Substance use: never Substance use type: does not use Spiritual care concerns: No Anes - Eval Final PreProcedure Day of Procedure 10/02/24 15:04 Patient weight: normal Heart: regular rate and rhythm Lungs: decreased breath sounds Airway: Mallampati scale class II Neurological: other (alert) Last oral intake: >/= 8 hours ASA classification: III Emergent: no Anesthetic plan: proceed Anesthesia type and monitoring: general GIVS and standard monitoring Results Review: All pre-operative results and documents have been reviewed as part of the pre- operative evaluation. Informed Consent: The patient's anesthetic plan and its attendant risks and benefits were discussed with the patient/family/POA. Questions were solicited and answers provided to the satisfaction of the patient/family/POA.
--- NOTE | 2024-10-02 16:18 | P.HP_ITS ---
H&P: HPI History of Present Illness Date/Time: 10/02/24 16:18 Chief Complaint: Food bolus Narrative: the patient has 48 hours with difficulty swallowing after eating a large piece of meat. He states he has been dilated before. Here for EGD. Review of Systems Review of Systems: All systems reviewed & are unremarkable except as noted in HPI and below PMFSH Past Medical History Medical History Hypertension Hyperlipidemia Diabetes mellitus BPH (benign prostatic hyperplasia) Atrial fibrillation Family History Family History Father Lung disease Mother Heart attack Social History Social History Smoking status: Never smoker Alcohol intake: never Substance use: never Substance use type: does not use Spiritual care concerns: No Meds Home Medications and Allergies Home Medications ?Medication ?Instructions ?Recorded ?Confirmed ?Type amlodipine 5 mg tablet 5 mg PO DAILY 01/01/23 01/01/23 History aspirin 81 mg chewable tablet 81 mg PO Q48H 01/01/23 01/01/23 History (Aspirin Childrens) atorvastatin 80 mg tablet 80 mg PO HS 01/01/23 01/01/23 History bethanechol chloride 10 mg tablet 10 mg PO TID 01/01/23 01/01/23 History brimonidine 0.2 % eye drops 1 drp EACH EYE BID 01/01/23 01/01/23 History cholecalciferol (vitamin D3) 25 50 mcg PO DAILY 01/01/23 01/01/23 History mcg (1,000 unit) tablet clopidogrel 75 mg tablet (Plavix) 75 mg PO DAILY 01/01/23 01/01/23 History finasteride 5 mg tablet 5 mg PO DAILY 01/01/23 01/01/23 History folic acid-vit B6-vit B12 2.2 1 tablet PO DAILY 01/01/23 01/01/23 History mg-25 mg-1 mg tablet (Virt-Neeta) hydrocodone 10 mg-acetaminophen 1 tablet PO Q48H PRN Pain (Scale 01/01/23 01/01/23 History 325 mg tablet Score 7-10) hydroxychloroquine 200 mg tablet 200 mg PO BID 01/01/23 01/01/23 History insulin aspart U-100 100 unit/mL 2 unit subcut QAM 01/01/23 01/01/23 History subcutaneous solution levetiracetam 500 mg tablet 1,000 mg PO BID 01/01/23 01/01/23 History lipase 10,500-protease 3 cap PO TID 01/01/23 01/01/23 History 35,500-amylase 61,500 unit capsule,delayed rel (Pancreaze) magnesium oxide 400 mg PO DAILY 01/01/23 01/01/23 History metformin 1,000 mg tablet 1,000 mg PO BIDWMEAL 01/01/23 01/01/23 History pantoprazole 40 mg tablet,delayed 40 mg PO QAM 01/01/23 01/01/23 History release pregabalin 100 mg capsule 100 mg PO QAM 01/01/23 01/01/23 History pregabalin 100 mg capsule 200 mg PO HS 01/01/23 01/01/23 History pyridoxine (vitamin B6) 50 mg 50 mg PO DAILY 01/01/23 01/01/23 History tablet sitagliptin phosphate 100 mg tablet 100 mg PO DAILY 01/01/23 01/01/23 History sotalol 80 mg tablet 120 mg PO BID 01/01/23 01/01/23 History tamsulosin 0.4 mg capsule 0.4 mg PO BID 01/01/23 01/01/23 History cyanocobalamin (vitamin B-12) 1,000 mcg IM MONTHLY #0 mL 01/11/23 Rx 1,000 mcg/mL injection solution sennosides 8.6 mg-docusate sodium 1 tab PO HS #14 tabs 01/11/23 Rx 50 mg tablet (Senokot-S) methylprednisolone 4 mg tablets in See Rx Instructions PO .COMPLEX 10/31/23 Rx a dose pack (Medrol (Ricardo)) #21 ea Allergies Allergy/AdvReac Type Severity Reaction Status Date / Time peanut Allergy Intermediate Swelling Verified 10/02/24 13:59 aspirin Allergy Mild aggravates Verified 10/02/24 13:59 stomach banana Allergy Unknown Itching Verified 10/02/24 13:59 latex Allergy Unknown Itching Verified 10/02/24 13:59 Penicillins Allergy Unknown Swelling Verified 10/02/24 13:59 Sulfa (Sulfonamide Allergy Unknown Swelling Verified 10/02/24 13:59 Antibiotics) celecoxib (From Celebrex) Allergy Swelling Verified 10/02/24 13:59 infliximab (From Remicade) Allergy Unknown Verified 10/02/24 13:59 meloxicam (From Mobic) Allergy Itching Verified 10/02/24 13:59 metoclopramide Allergy Unknown Verified 10/02/24 13:59 lisinopril AdvReac Swelling Verified 10/02/24 13:59 Vital Signs Vital Signs - 24 hr 10/02/24 09:10 10/02/24 09:17 10/02/24 09:30 Temperature 97.9 F Pulse Rate 94 92 87 Respiratory Rate 18 19 16 Blood Pressure 161/99 H 151/90 H Pulse Oximetry 100 100 100 Oxygen Delivery Room Air 10/02/24 09:30 10/02/24 09:45 10/02/24 10:03 Temperature Pulse Rate 88 83 83 Respiratory Rate 22 H 21 H 19 Blood Pressure Pulse Oximetry 100 100 100 Oxygen Delivery 10/02/24 10:10 10/02/24 10:12 10/02/24 10:15 Temperature Pulse Rate 82 82 79 Respiratory Rate 18 19 16 Blood Pressure 158/93 H 158/93 H Pulse Oximetry 100 100 100 Oxygen Delivery 10/02/24 10:30 10/02/24 10:31 10/02/24 10:45 Temperature Pulse Rate 67 74 88 Respiratory Rate 14 15 18 Blood Pressure 145/80 H Pulse Oximetry 100 100 100 Oxygen Delivery 10/02/24 11:00 10/02/24 11:01 10/02/24 14:02 Temperature 97.6 F Pulse Rate 70 70 72 Respiratory Rate 16 17 16 Blood Pressure 150/82 H 162/92 H Pulse Oximetry 100 100 100 Oxygen Delivery Room Air Exam Const: General: cooperative and healthy appearing Resp: Effort & Inspection: normal respiratory effort and able to speak in complete sentences Auscultation: clear to auscultation bilaterally Cardio: Rate: regular rate Rhythm: regular rhythm GI: Inspection: normal to inspection GI Palp: No No hepatosplenomegaly present Auscultation: normal bowel sounds Rectal Exam: deferred Skin: General skin exam: normal color Psych: Appearance: grossly normal Mental Status: mental status grossly normal H&P: Results Labs Labs: Short CBC 10/02/24 Range/Units 09:16 WBC 7.5 (4.5-10.0) K/mm3 Hgb 13.8 L (14.0-18.0) g/dL Hct 41.6 L (42.0-52.0) % Plt Count 260 (150-375) k/mm3 BMP 10/02/24 09:16 Sodium 142 Potassium 3.7 Chloride 105 Carbon Dioxide 28 BUN 12 Creatinine 0.99 Glucose 131 H Calcium 9.5 Liver Function 10/02/24 Range/Units 09:16 Total Bilirubin 1.9 H (0.2-1.3) mg/dL AST 34 (17-59) U/L ALT 23 (6-50) U/L Alkaline Phosphatase 76 (38-126) U/L Albumin 4.4 (3.5-5.1) g/dL Urine 10/02/24 Range/Units 09:54 Urine Color Yellow (Yellow) Urine Appearance Clear (Clear) Urine pH 5.5 (5.0-9.0) Ur Specific [place] 1.015 (1.001-1.035) Urine Protein Negative (Negative) mg/dL Urine Glucose (UA) Negative (Negative) mg/dL Assessment and Plan Assessment and plan (1) Esophageal obstruction due to food impaction: Code(s): T18.128A - Food in esophagus causing other injury, initial encounter; [id number].[id number] - Food entering into or through a natural orifice, initial encounter Status: Acute Assessment and Plan: The patient is deemed a good candidate for the procedure, with food bolus extraction. Consent signed. Will proceed.
--- NOTE | 2024-10-02 16:35 | SUR.PHASEII ---
Called Dr. Gonsalez regarding patient's last post-op BP of 171/98. Per patient, he has been unable to take his blood pressure medication due to the food in his throat. Per Dr. Gonsalez ok to discharge patient home with this blood pressure. Instructed patient to take normal medications when he gets home. Patient voices understanding.
--- OUTSIDE RECORDS SUMMARY | 2024-10-02 16:37 | XMS_ITS | Clinical Summary ---
Author Organization [facility] [employer] Address [address] [facility] [place] [address] Care Team Providers Care Product Analyst Name Role Phone Betzy Montana MD Unavailable [phone] Dora Peraza MD Unavailable [phone] Gabriel Camarena MD Unavailable [phone] Wyatt Ang MD Unavailable [phone] Skyler Noriega DPM Unavailable Selwyn Acharya MD Unavailable Unavailable Shemar Lawler MD Unavailable Nelda Grove MD Unavailable [phone] Timi Weinberg MD Primary Care Provider [phone] Afsaneh Kang PAINT BRUSH MAKER-[facility] Unavailable Nieves Smith MA Unavailable [phone] Source Comments [facility],non-owned Affiliates and Associated Physician Practices is amultiple site organization consisting of ambulatory clinics and hospital sitesin [place], [place], [place] and [place]. This disclosure is being madepursuant to the Care Everywhere program and may not contain all information available regarding this patient. Last updated 18.[facility] Allergies Active Allergy Reactions Criticality Noted Date [...] 9 mL 5 10/05/19 23 Active Pancreaze [id number] units capsule TAKE 3 CAPSULES BY MOUTH [...] MCG/ACT nasal sprayIndication s:Eustachian tube disorder, bilateral [place] 2 (two) sprays into each nostril once [...] (05/07/2023): 07/2022 right knee x-rays with advanced lczy-jy-nrhy medial compartment joint space narrowing. May not [...] Seizure 12/28/2021 Overview (12/28/2021): 10/06/21 Heena Yadav APRN-ASSEMBLY LINE SUPERVISOR Nurse Practitioner Family Bilateral non-palpable testicles 10/05/2021 [...] (nonsustained ventricular tachycardia) 12/11 Overview (12/21/2020): 08/09/2020 [facility] Janine Awad Pradeep, MD Parkinsonism, unspecified Parkinsonism type 12/11 Overview (12/21/2020): 11/07/2019 [facility] Lindsay Awad Danuta M, MD [...] Department Care Team Description 09/28/2024 Patient Outreach [facility] - Care Coordination [address] [place] [address] Nieves Smith MA [...] Recorded Patient Health Questionnaire-2 Score 0 02/04/[address] [facility] [address] of Occupat ional Health - Occupational Stress [...] place to sleep or slept in a residential (including now)? No 02/26/2023 Sex and Gender Information Value Date Recorded Sex Assigned at Not on file Legal Sex Male 1:20 PM NUTRITION CONSULTANT Gender Identity Not on file Sexual [...] cardio cruiser. Medical Devices Implanted Type Area Station Usher Device Identifier Shelf Expiration Date Model / Serial / Lot Ent Kit Implanted:Qty : 1 on 09/23/2020 by Nelda Grove MD at [facility] Right: Abdomen 01/07/2023 [id number] / / [id number] Oclr Cv 24mm Dlv Sys Watchman Flx Strl Implanted:Qty : 1 on 02/28/2022 by Jeffrey Camarena MD at [facility] [employer]imed [id number] 10/29/2024 [id number] / NA / [id number] Explanted Type Area Station Usher Device Identifier Shelf Expiration Date Model / Serial / Lot Oclr Cv 20mm Dlv Sys Watchman Flx Strl Explanted:Qty: 1 on 02/28/2022 at [facility] [employer]imed [id number] 08/22/2024 [id number] / NA / [id number] Procedures Procedure Name Priority Date/Time Associated Diagnosis [...] CNTY FM Creatinine POCT 200 [facility] CNTY Microalbumin/Crea tinine Ratio <30 [facility] CNT[facility] FM Urine URINE / Unknown 02/04/2024 2 :30 PM CDT Afsaneh Kang PAINT BRUSH MAKER-ASSEMBLY LINE SUPERVISOR LAB - POINT OF CA RE ORDERABLES Final Result [facility] [address] [phone] * (ABNORMAL) COMPREHENSIVE METABOLIC PANEL (01/31/2024 11:32 [...] 6:15 AM CDT Performed at: 01 - [facility] [address] [place], [place] [id number] Legal Document Assistant: Dae Freeman PhD, Phone: [phone] us Timi Weinberg MD LAB - CHEMISTRY ORDERABLES Final Result [facility] INSURANCE BILL [address] [place] [address] * HEMOGLOBIN A1C - POINT OF CARE (HgbA1C) (08/19/2023 1:30 PM CDT) Hemoglobin A1c POCT 7.0 % [facility] FM Expiration Date 11/08/23 [facility] FM Lot # [id number] [facility] QC Verified Yes Yes [facility] FM Blood BLOOD SPECIMEN / Unknown 08/19/2023 1:30 PM CDT us Afsaneh Kang PAINT BRUSH MAKER-ASSEMBLY LINE SUPERVISOR LAB - POINT OF CA RE ORDERABLES Final Result [facility] FM [address] [phone] * DIABETES EYE EXAM (11/25/2020) us Scanned [...] Resulting Agency Comment Lab Testing performed at: [facility] [address] [facility] [phone] us Eboni Watkins PAINT BRUSH MAKER-ASSEMBLY LINE SUPERVISOR LAB - CHEMISTRY ORD ERABLES Final Result [facility] INSURANCE BILL [address] [place] [address] * COLONOSCOPY (12/16/2012) 12/16/2012 Narrative 12/16/2012 Ordered by an unspecified provider. us Scanned Document SCANNING ONLY Final Result from Last 3 Months or Most Recently Relevant to Health [place] [address] [facility] [place] [address] Advance Directives * Full Code (Latest Code [...] 11:16 AM 03/01/2022 3:37 PM Care Teams Product Analyst Relationship Specialty Start Date End Date Timi Weinberg MD [address] [place] [address] PCP - General Internal Medicine 05/20/23 Afsaneh Kang, PAINT BRUSH MAKER-ASSEMBLY LINE SUPERVISOR [address] [place] [address] PCP - Attributed-MSSP 01/12/24 Betzy Montana MD [address] [place] [address] Rheumatology 11/24/19 [place] [address] [place], [place] [id number] Orthopedic Surgery 03/14/20 Gabriel Camarena MD [address] [place] [id number] Cardiovascular Disease 08/04/20 Wyatt Ang MD [address] [facility] [address] [place] [address] Cardiology 08/04/20 Skyler Noriega DPM [address] [place] [address] Podiatry 08/16/20 Selwyn Acharya MD [address] [place] [address] Endocrinology 08/16/20 Shemar Lawler MD [address] [facility] [address] [place] [address] Physician Gastroenterology 11/09/20 Nelda Grove MD [address] [facility] [address] [place] [id number] Physician Urology 01/06/21 Nieves Smith MA [address] [facility] [address] [place] [address] Care Coordination Specialist Care Management 09/28/24
--- OUTSIDE RECORDS SUMMARY | 2024-10-02 16:37 | XMS_ITS | Encounter Summary ---
Author Organization [facility] Address [address] [facility] [place] [address] Care Team Providers Care Pump Press Operator Name Role Phone Maxim Martínez MD Primary Care Provider [phone] Maxim Martínez MD Unavailable Eboni Waktins APRN-BALBIR Unavailable [phone] Cheyanne Allan MD Unavailable Betzy Montana MD Unavailable Manisha Cao RN Unavailable Dora Peraza MD Unavailable [phone] Encounter Details Date Type Department Care Team (Late st Contact Info) Description 04/22/2020 2:09 PM CONTACT LENS BLOCKER Hospital Encounter [address] [address] Laureen Roberts MD [facility] [address] [place] [address] Nena [place] [address] [facility] [place] [address] [employer] Social History Tobacco [...] Recorded Patient Health Questionnaire-2 Score 0 02/04/2024 [facility] [place] of Occupat ional Health - Occupational Stress [...] place to sleep or slept in a long term (including now)? No 02/26/2023 Sex and Gender Information Value Date Recorded Sex Assigned at Not on file Legal Sex Male 1:20 PM CONTACT LENS BLOCKER Gender Identity Not on file Sexual Orientation [...] COVID-19 Confirmed 04/13/2020 04/13/2020 0 4:34 AM CONTACT LENS BLOCKER C DIFF 04/22/2020 04/22/2020 09/23/2020 8:37 AM CDT COVID-19 Confirmed Comment:Added from external infection. 08/01/2020 12/23/2020 8:11 AM C DT COVID-19 Under Investigation 03/02/2022 03/02/2022 03/02/2022 3:05 PM CDT CDIFF Under Investigation 07/29/2022 07/29/2022 7:20 AM CDT documented as of this encounter Care Teams Pump Press Operator Relationship Specialty Start Date End Date Maxim Martínez MD PCP - General 02/11/20 10/16/20 Eboni Watkins APRN-GENERAL OPERATOR [address] [place] [address] PCP - Attributed-MSSP 11/11/19 11/09/20 Maxim Martínez MD Family Medicine 02/11/20 08/03/20 [place] [address] [facility] [address] [place] [address] Urology 03/20/16 01/17/21 Betzy Montana MD [address] [place] [address] [address] [place], [place] [id number] Rheumatology 11/24/19 Manisha Cao RN Deicer Inspector PneumaticMarketing Analytics Analyst 02/10/20 09/22/23 [place] [address] [place], [place] [address] Orthopedic Surgery 03/14/20 documented as of this encounter
--- OUTSIDE RECORDS SUMMARY | 2024-10-02 16:38 | XMS_ITS | Encounter Summary ---
Author Organization [facility] Address [address] [place] [address] Care Team Providers Care Elastic Attacher Chainstitch Name Role Phone Maxim Martínez MD Primary Care Provider Encounter Details Date Type Department Care Team (Late st Contact Info) Description 01/31/1998 Outpatient Historical [facility] Social History Tobacco Use Types Packs/Day Years Used Date Smoking Tobacco: Never Assessed Sex and Gender Information Value Date Recorded Sex Assigned at Not on file Legal Sex Male 5:21 AM CHIEF TECHNOLOGY OFFICER Gender Identity Not on file Sexual Orientation Not on file documented as of this encounter Plan of Treatment Not on file documented as of this encounter Visit Diagnoses Not on filedocumented in this encounter Additional Health Concerns Infection Onset Date Last Indicated Resolved Time 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
--- OUTSIDE RECORDS SUMMARY | 2024-10-02 16:38 | XMS_ITS | Encounter Summary ---
Author Organization [employer] Address [address] [place] [address] Care Team Providers Care Weigh Machine Operator Name Role Phone Maxim Martínez MD Primary Care Provider Encounter Details Date Type Department Care Team (Late st Contact Info) Description 03/19/2003 Outpatient Historical [facility] Jason Goode MD [address] [place] [address] [place] [address] MELENA, BLOOD IN STOOL (Primary Dx) Social History Tobacco Use Types Packs/Day Years Used Date Smoking Tobacco: Never Assessed Sex and Gender Information Value Date Recorded Sex Assigned at Not on file Legal Sex Male 5:21 AM POINT OF CARE SPECIALIST Gender Identity Not on file Sexual Orientation [...] documented as of this encounter Care Teams Weigh Machine Operator Relationship Specialty Start Date End Date Maxim Martínez MD PCP - General 01/14/18 documented as of this encounter
--- OUTSIDE RECORDS SUMMARY | 2024-10-02 16:38 | XMS_ITS | Encounter Summary ---
Author Organization [employer] Address 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
--- OUTSIDE RECORDS SUMMARY | 2024-10-02 16:38 | XMS_ITS ---
Author Organization [facility] Address [address] [facility] [place] [address] Care Team Providers Care Gear And Spline Grinder Name Role Phone Betzy Montana MD Unavailable Dora Peraza MD Unavailable Gabriel Camarena MD Unavailable [phone] Wyatt Ang MD Unavailable [phone] Skyler Noriega DPM Unavailable Selwyn Acharya MD Unavailable Unavailable Shemar Lawler MD Unavailable Nelda Grove MD Unavailable Timi Weinberg MD Primary Care Provider [phone] Afsaneh Kang APRN-GROCERY CADDY Unavailable Nieves Smith MA Unavailable QMM & AWV - [employer]ibr[employer] Status:Identified (Enrolling) Start date:09/28/2024 Enrollment reason:Identified using claims or encounter data Case Team Name Relationship Phone Nieves Smith MA(Responsible Staff) Care Coor dination Specialist [phone] Continued Care and Services Coordination
--- OUTSIDE RECORDS SUMMARY | 2024-10-02 16:38 | XMS_ITS | Continuity of Care Document ---
Author Name [facility] Organization [facility] Care Team Providers Care Ham Boner Name Role Phone [facility] Unavailable Unavailable Problems Combined list of problems from Department of Defense and [facility] Affairs facilities. It does not include entries that were removed or entered in error. Problem Status Onset Date Problem Type Date of Resolution Comments Source Atrial fibrillation Active Condition [facility] Benign essential hypertension Active Condition [facility] Benign prostatic hyperplasia Active Condition [facility] Bunion Active Condition [facility] Cerebral infarction Active Condition [facility] Cyst Active Condition [facility] Gastroesophageal reflux disease Active Condition [facility] Hyperlipidemia Active Condition [facility] Knee pain (SNOMED CT [id number]) Active Condition [facility] Osteoarthritis of lumbar spine Active Condition [facility] Osteoarthritis of shoulder Active Condition [facility] Peripheral nerve disease Active Condition [facility] Rheumatoid arthritis Active Condition [facility] Seizure Active Condition [facility] Type 2 diabetes mellitus Active Condition [facility] Clostridium difficile colitis Inactive Condition 04/01/2022 [facility] DIAPHRAGMATIC HERNIA Inactive Condition 10/10/2023 [facility] OSTEOARTHROS NOS-UNSPEC Inactive Condition 10/10/2023 [facility] PEPTIC ULCER NOS Inactive Condition 10/10/2023 [facility] ROUTINE MEDICAL EXAM Inactive Condition 04/01/2022 [facility] Diagnosis: ICD-10-CM I48.0 Paroxysmal atrial fibrillation Active Diagnosis [facility] Diagnosis: ICD-10-CM I63.9 Cerebral infarction, unspecified Active Diagnosis [facility] Diagnosis: ICD-10-CM M25.569 Pain in unspecified knee Active [facility] Diagnosis: ICD-10-CM K08.409 Partial loss of teeth, unspecified cause, unspecified class Active Diagnosis [facility] Diagnosis: ICD-10-CM R21 Rash and other nonspecific skin eruption Active Diagnosis [facility] Diagnosis: ICD-10-CM M25.512 Pain in left shoulder Active Diagnosis [facility] Diagnosis: ICD-10-CM Z04.89 Encounter for examination and observation for oth reasons Active Diagnosis [facility] Diagnosis: ICD-10-CM Z00.00 Encntr for general adult medical exam w/o abnormal findings Active Diagnosis [facility] Diagnosis: ICD-10-CM M54.50 Low back pain, unspecified Active Diagnosis [facility] Diagnosis: ICD-10-CM M06.9 Rheumatoid arthritis, unspecified Active Diagnosis [facility] Diagnosis: ICD-10-CM M25.562 Pain in left knee Active Diagnosis [facility] Medications Combined list of outpatient medications from Department of Defense and [facility] facilities.Medications provided include 1) outpatient medications from the last 15 months, and 2) patient-reported medications. Medication Details Route Status Patient Instructions Prescription Expires Prescription Number Last Dispense Date Ordering Provider Order Date Order Qty Source AMLODIPINE BESYLATE 2.5MG TAB TAKE ONE TABLET BY MOUTH ONCE A DAY ORAL ACTIVE LETITIA STAUFFER BRIGHTY R 2022 [facility] AMYLASE 24,000UNIT/ LIPASE 5,000UNIT/P ROTEASE 17,000UNIT CAP,EC TAKE 3 CAPSULES BY MOUTH THREE TIMES A DAY BEFORE MEALS ORAL ACTIVE LETITIA STAUFFER NEREYDA R 2021 [facility] APIXABAN 5MG TAB TAKE ONE TABLET BY MOUTH TWICE A DAY ORAL ACTIVE LETITIA STAUFFER LBY R 2022 [facility] ATORVASTATI N CA 40MG TAB TAKE ONE-HALF TABLET BY MOUTH EVERY EVENING ORAL ACTIVE YOKASTA BOOKER MD 2019 [facility] BETHANECHOL CL 25MG TAB TAKE TWO TABLETS BY MOUTH THREE TIMES A DAY ORAL ACTIVE LETITIA STAUFFER R 2021 [facility] CHLORHEXIDI NE GLUCONATE 4% LIQUID,TOP APPLY MODERATE AMOUNT TO AFFECTED AREA(S) DIRECTED (TOPICAL USE ONLY) AVOID CONTACT WITH EYES. CHIARA TRINIDAD INUED BY ALBERT R 12/07/2023 [id number] SILKE RENAE MM 2023 120 [facility] DIVISIO N CLOPIDOGREL BISULFATE 75MG TAB TAKE ONE TABLET BY MOUTH ONCE A DAY ORAL ACTIVE LETITIA STAUFFER R 2022 [facility] DIAZEPAM 5MG TAB TAKE ONE TABLET BY MOUTH ONE-TIME FOR ANXIETY AVOID TAKING WITH GRAPEFRU IT JUICE. PLEASE TAKE 30-60 MINUTES PRIOR TO MRI. ORAL 02/20/2024 [id number] LETITIA STAUFFER R 2023 1 [facility] FINASTERIDE 5MG TAB TAKE ONE TABLET BY MOUTH ONCE A DAY ORAL ACTIVE LETITIA STAUFFER R 2021 [facility] HYDROCODONE 7.5MG/ACETA MINOPHEN 325MG TAB TAKE ONE TABLET BY MOUTH EVERY 6 HOURS NEEDED ORAL ACTIVE YOKASTA BOOKER MD 2017 [facility] HYDROXYCHLO ROQUINE SULFATE (HYDROXYCHL OROQUINE SULFATE), 200MG, TABLET, ORAL, ZYDUS PHARMACEU, 100 ea. BOTTLE Active [id number] 2023 180 Pharmac y Data Transac tion Service Facilit y INSULIN,ASP ART,HUMAN 100 UNT/ML INJ INJECT 2 UNITS UNDER THE SKIN THREE TIMES A DAY BEFORE MEALS SUBCUT ANEOUS ACTIVE LETITIA STAUFFER R 2021 [facility] LATANOPROST 0.005% SOLN,OPH INSTILL 1 DROP IN BOTH EYES EVERY EVENING OPHTHA LMIC ACTIVE YOKASTA BOOKER MD 2017 [facility] LEVETIRACET AM 500MG TAB TAKE TWO TABLETS BY MOUTH TWICE A DAY ORAL ACTIVE LETITIA STAUFFER R 2022 [facility] MAGNESIUM OXIDE 400MG TAB TAKE ONE TABLET BY MOUTH ONCE A DAY ORAL ACTIVE LETITIA STAUFFER R 2022 [facility] METFORMIN HCL 1000MG/SAXA GLIPTIN 2.5MG 24 HR TAB,SA TAKE TWO TABLETS BY MOUTH ONCE A DAY ORAL ACTIVE LETITIA STAUFFER R 2022 [facility] METHYLPREDN ISOLONE (methylpred nisolone), 4 MG, TAB DS PK, ORAL, drop.io, 21 ea. DOSE-PACK Active [id number] 2023 21 Pharmac y Data Transac tion Service Facilit y PANTOPRAZOL E NA 40MG TAB,EC TAKE ONE TABLET BY MOUTH EVERY MORNING ORAL ACTIVE YOKASTA BOOKER MD 2015 [facility] PREGABALIN (pregabalin ), 100 MG, CAPSULE, ORAL, LIANE PHARMAC, 90 ea. BOTTLE Cancele d [id number] : 2023 0 Pharmac y Data Transac tion Service Facilit y PREGABALIN 75MG CAP,ORAL TAKE 1 CAPSULE BY MOUTH AT BEDTIME ORAL ACTIVE LETITIA STAUFFER R 2021 [facility] SOTALOL TAB TAKE BY MOUTH TWICE A DAY ORAL ACTIVE LETITIA STAUFFER R 2021 [facility] TAMSULOSIN HCL 0.4MG CAP TAKE 1 CAPSULE BY MOUTH EVERY EVENING ORAL ACTIVE YOKASTA BOOKER MD 2018 [facility] Allergies, Adverse Reactions, Alerts Combined list of allergies from Department of Defense and Veterans Affairs facilities. It does not include entries that were removed or entered in error. Substance Category Reaction Severity Reaction type Status Date Reported Comments Source METOCLOPRAMID E Drug allergy (disorder) Renal failure syndrome active 3 [facility] PENICILLIN Propensity to adverse reactions to drug (finding) active 7 [facility] PENICILLINS Drug allergy (disorder) active 7 [facility] REGLAN Propensity to adverse reactions to drug (finding) Renal failure syndrome active 3 [facility] Propensity to adverse reactions to drug (finding) active 7 [facility] Immunizations Combined list of available immunizations from the Department of Defense and Veterans Affairs facilities. Immunization Series Date Given Administered By Site Reaction Lot Number CVX Code Drug Medical Staff Credentialing Coordinator Status Comments Source COVID-19 (MODERNA), MRNA, LNP-S, PF, 50 MCG/0.5 ML (AGES 12+ YEARS) 2 2023 312 complet ed HISTORICA L INFORMATI ON - FROM OTHER [facility] N INFLUENZA, ADJUVANTED, TRIVALENT, PF 6 2023 168 complet ed HISTORICA L INFORMATI ON - FROM OTHER [facility], [facility] N ZOSTER RECOMBINANT 2 2022 RACHEL WOODRUFF RIGHT DELTO ID [id number] 187 complet ed [facility] ZOSTER RECOMBINANT 2022 KELVIN LEVY RIGHT DELTO ID [id number] 187 complet ed [facility] INFLUENZA, UNSPECIFIED FORMULATION 2021 88 complet ed HISTORICA L INFORMATI ON - [facility] N COVID-19 (PFIZER), MRNA, LNP-S, BIVALENT, PF, 30 MCG/0.3 ML DOSE 1 2021 300 complet ed HISTORICA L INFORMATI ON - FROM OTHER [facility], [facility] N INFLUENZA VACCINE, QUADRIVALENT, ADJUVANTED 5 2021 205 complet ed HISTORICA L INFORMATI ON - FROM OTHER [facility] N COVID-19 (PFIZER), MRNA, LNP-S, PF, 30 MCG/0.3 ML DOSE, DAWN-SUCROSE (AGES 12+ YEARS) 4 2021 217 complet ed HISTORICA L INFORMATI ON - FROM OTHER [facility] N INFLUENZA VACCINE, QUADRIVALENT, ADJUVANTED 4 2020 205 complet ed HISTORICA L INFORMATI ON - FROM OTHER REGISTRY, [facility] DIV[facility] N COVID-19 (PFIZER), MRNA, LNP-S, PF, 30 MCG/0.3 ML DOSE 3 2020 208 complet ed HISTORICA L INFORMATI ON - FROM OTHER [facility], [facility] N COVID-19 ([facility]), MRNA, LNP-S, PF, 30 MCG/0.3 ML DOSE 2 2020 208 complet ed HISTORICA L INFORMATI ON - FROM OTHER REGISTRY, [facility] N COVID-19 ([facility]), MRNA, LNP-S, PF, 30 MCG/0.3 ML DOSE 1 2020 208 complet ed HISTORICA L INFORMATI ON - FROM OTHER [facility], [facility] DIV[facility] N INFLUENZA, UNSPECIFIED FORMULATION 2019 88 complet ed [facility] N INFLUENZA, RECOMBINANT, QUADRIVALENT, INJECTABLE, PRESERVATIVE FREE 3 2019 185 complet ed HISTORICA L INFORMATI ON - FROM OTHER REGISTRY, [facility] N HEP A-HEP B 1 2019 104 complet ed HISTORICA L INFORMATI ON - FROM OTHER [facility], [facility] N TDAP 1 2019 115 complet ed HISTORICA L INFORMATI ON - FROM OTHER [facility], [facility] N INFLUENZA, HIGH DOSE SEASONAL 2 2018 135 complet ed HISTORICA L INFORMATI ON - FROM OTHER REGISTRY, [facility] N INFLUENZA, UNSPECIFIED FORMULATION 2018 88 complet ed [facility] N INFLUENZA, INJECTABLE, QUADRIVALENT, PRESERVATIVE FREE 1 2018 150 complet ed HISTORICA L INFORMATI ON - FROM OTHER [facility], [facility] INFLUENZA, UNSPECIFIED FORMULATION 2017 88 complet ed [facility] N PNEUMOCOCCAL POLYSACCHARID E PPV23 2016 33 complet ed [facility] N INFLUENZA, UNSPECIFIED FORMULATION 2016 88 complet ed ILL[place]I S TDAP 1 2016 115 complet ed HISTORICA L INFORMATI ON - FROM OTHER REGISTRY, [facility] N PNEUMOCOCCAL CONJUGATE PCV 13 2016 133 complet ed by non va pcp [facility] N INFLUENZA, UNSPECIFIED FORMULATION 2016 88 complet ed [facility] N INFLUENZA, HIGH DOSE SEASONAL 1 2015 135 complet ed HISTORICA L INFORMATI ON - FROM OTHER REGISTRY, [facility] N PNEUMOCOCCAL CONJUGATE PCV 13 1 2015 133 complet ed HISTORICA L INFORMATI ON - FROM OTHER REGISTRY, [facility] N TDAP 2013 115 complet ed [facility] N Results Combined list of recent [...] Nov 07, 2023 10:50 AM Reporting Lab: [address] [address] Performing Lab: [address] [address] [facility] BASIC METABOLIC PANEL UREA NITROGEN [MASS/VOLUM E] IN SERUM OR PLASMA 17.7 mg/dL 9.0 - 25.0 11/06 Specimen Type: PLASMA Comment: No hemolysis noted. Ordering Provider: CHRISSY RENAE MM Report Released Date/Time: Nov 07, 2023 10:50 AM Reporting Lab: [address] [address] Performing Lab: [address] [address] [facility] BASIC METABOLIC PANEL GLUCOSE [MASS/VOLUM E] IN SERUM OR PLASMA 136 mg/dL 72 - 99 11/06 H Specimen Type: PLASMA Comment: No hemolysis noted. Ordering Provider: CHRISSY RENAE MM Report Released Date/Time: Nov 07, 2023 10:50 AM Reporting Lab: [address] [address] Performing Lab: [address] [address] [facility] BASIC METABOLIC PANEL SODIUM [MOLES/VOLU ME] IN SERUM OR PLASMA 138 meq/L 136 - 145 11/06 Specimen Type: PLASMA Comment: No hemolysis noted. Ordering Provider: CHRISSY RENAE MM Report Released Date/Time: Nov 07, 2023 10:50 AM Reporting Lab: [address] [address] Performing Lab: [address] [address] [facility] BASIC METABOLIC PANEL POTASSIUM [MOLES/VOLU ME] IN SERUM OR PLASMA 3.5 meq/L 3.5 - 5 11/06 Specimen Type: PLASMA Comment: No hemolysis noted. Ordering Provider: CHRISSY RENAE MM Report Released Date/Time: Nov 07, 2023 10:50 AM Reporting Lab: [address] [address] Performing Lab: [address] [address] [facility] BASIC METABOLIC PANEL CHLORIDE [MOLES/VOLU ME] IN SERUM OR PLASMA 103 meq/L 98 - 107 11/06 Specimen Type: PLASMA Comment: No hemolysis noted. Ordering Provider: CHRISSY RENAE MM Report Released Date/Time: Nov 07, 2023 10:50 AM Reporting Lab: [address] [address] Performing Lab: [address] [address] [facility] BASIC METABOLIC PANEL CARBON DIOXIDE, TOTAL [MOLES/VOLU ME] IN SERUM OR PLASMA 25 meq/L 22 - 31 11/06 Specimen Type: PLASMA Comment: No hemolysis noted. Ordering Provider: CHRISSY RENAE MM Report Released Date/Time: Nov 07, 2023 10:50 AM Reporting Lab: [place] [address] Performing Lab: [address] BASIC METABOLIC PANEL CALCIUM [MASS/VOLUM E] IN SERUM OR PLASMA 10.2 mg/dL 8.4 - 10.4 11/06 Specimen Type: PLASMA Comment: No hemolysis noted. Ordering Provider: CHRISSY RENAE MM Report Released Date/Time: Nov 07, 2023 10:50 AM Reporting Lab: [place] [phone] Performing Lab: [place] [id number] BASIC METABOLIC PANEL GLOMERULAR FILTRATION RATE/1.73 SQ M.PREDICTED [VOLUME RATE/AREA] IN SERUM, PLASMA OR BLOOD BY CREATININE- BASED FORMULA (CKD-EPI 2020) 58.2 60 11/06 Specimen Type: PLASMA Comment: No hemolysis noted. Ordering Provider: CHRISSY RENAE MM Report Released Date/Time: Nov 07, 2023 10:50 AM Reporting Lab: [place] [phone] Performing Lab: [place] [address] [facility] [phone] CBC LEUKOCYTES [#/VOLUME] IN BLOOD BY AUTOMATED COUNT 4.7 10*3/u L 3.6 - 11.2 11/06 Specimen Type: BLOOD No comment entered. Ordering Provider: CHRISSY RENAE MM Report Released Date/Time: Nov 07, 2023 10:50 AM Reporting Lab: [place] [address] [address] Performing Lab: [address] [address] [facility] CBC ERYTHROCYTE S [#/VOLUME] IN BLOOD BY AUTOMATED COUNT 4.60 10*6/u L 4.10 - 5.70 11/06 Specimen Type: BLOOD No comment entered. Ordering Provider: CHRISSY RENAE MM Report Released Date/Time: Nov 07, 2023 10:50 AM Reporting Lab: [place] [phone] Performing Lab: [place] [id number] CBC HEMOGLOBIN [MASS/VOLUM E] IN BLOOD 12.2 g/dL 13.1 - 16.8 11/06 L Specimen Type: BLOOD No comment entered. Ordering Provider: CHRISSY RENAE MM Report Released Date/Time: Nov 07, 2023 10:50 AM Reporting Lab: [place] [phone] Performing Lab: [place] [phone] CBC HEMATOCRIT [VOLUME FRACTION] OF BLOOD 37.8 38.2 - 48.4 11/06 L Specimen Type: BLOOD No comment entered. Ordering Provider: CHRISSY RENAE MM Report Released Date/Time: Nov 07, 2023 10:50 AM Reporting Lab: [place] [phone] Performing Lab: [place] [phone] CBC MCV [ENTITIC VOLUME] BY AUTOMATED COUNT 82.2 fL 80.0 - 100.0 11/06 Specimen Type: BLOOD No comment entered. Ordering Provider: CHRISSY RENAE MM Report Released Date/Time: Nov 07, 2023 10:50 AM Reporting Lab: [address] [place] [address] Performing Lab: [address] [address] [facility] CBC MCH [ENTITIC MASS] BY AUTOMATED COUNT 26.5 pg 27.0 - 34.0 11/06 L Specimen Type: BLOOD No comment entered. Ordering Provider: CHRSISY RENAE MM Report Released Date/Time: Nov 07, 2023 10:50 AM Reporting Lab: [address] [address] Performing Lab: [address] [phone] [address] CBC MCHC [MASS/VOLUM E] BY AUTOMATED COUNT 32.3 g/dL 33.0 - 36.0 11/06 L Specimen Type: BLOOD No comment entered. Ordering Provider: CHRISSY RENAE MM Report Released Date/Time: Nov 07, 2023 10:50 AM Reporting Lab: [address] [address] Performing Lab: [address] [phone] [place] [address] CBC PLATELETS [#/VOLUME] IN BLOOD BY AUTOMATED COUNT 340 10*3/u L 150 - 400 11/06 Specimen Type: BLOOD No comment entered. Ordering Provider: CHRISSY RENAE MM Report Released Date/Time: Nov 07, 2023 10:50 AM Reporting Lab: [address] [address] Performing Lab: [address] [address] [facility] CBC PLATELET MEAN VOLUME [ENTITIC VOLUME] IN BLOOD BY AUTOMATED COUNT 8.6 fL 7.5 - 11.2 11/06 Specimen Type: BLOOD No comment entered. Ordering Provider: CHRISSY RENAE MM Report Released Date/Time: Nov 07, 2023 10:50 AM Reporting Lab: [place] [id number] [facility] [address] Performing Lab: [facility] [address] [facility] [address] [facility] CBC ERYTHROCYTE DISTRIBUTIO N WIDTH [RATIO] BY AUTOMATED COUNT 16.4 11.8 - 15.1 11/06 H Specimen Type: BLOOD No comment entered. Ordering Provider: CHRISSY RENAE MM Report Released Date/Time: Nov 07, 2023 10:50 AM Reporting Lab: [facility] [address] [facility] [address] Performing Lab: [address] [address] [facility] CBC LYMPHOCYTES /100 LEUKOCYTES IN BLOOD BY AUTOMATED COUNT 37 11/06 Specimen Type: BLOOD No comment entered. Ordering Provider: CHRISSY RENAE MM Report Released Date/Time: Nov 07, 2023 10:50 AM Reporting Lab: [facility] [address] [facility] [address] Performing Lab: [facility] [address] [facility] [address] [facility] CBC MONOCYTES/1 00 LEUKOCYTES IN BLOOD BY AUTOMATED COUNT 8 11/06 Specimen Type: BLOOD No comment entered. Ordering Provider: CHRISSY RENAE MM Report Released Date/Time: Nov 07, 2023 10:50 AM Reporting Lab: [address] [address] Performing Lab: [facility] [address] [facility] [address] [facility] CBC NEUTROPHILS /100 LEUKOCYTES IN BLOOD BY AUTOMATED COUNT 51 11/06 Specimen Type: BLOOD No comment entered. Ordering Provider: CHRISSY RENAE MM Report Released Date/Time: Nov 07, 2023 10:50 AM Reporting Lab: [facility] [address] [facility] [address] Performing Lab: [place] [facility] [address] [facility] CBC EOSINOPHILS /100 LEUKOCYTES IN BLOOD BY AUTOMATED COUNT 3 11/06 Specimen Type: BLOOD No comment entered. Ordering Provider: CHRISSY RENAE MM Report Released Date/Time: Nov 07, 2023 10:50 AM Reporting Lab: [address] [address] Performing Lab: [address] [address] [facility] CBC BASOPHILS/1 00 LEUKOCYTES IN BLOOD BY AUTOMATED COUNT 1 11/06 Specimen Type: BLOOD No comment entered. Ordering Provider: CHRISSY RENAE MM Report Released Date/Time: Nov 07, 2023 10:50 AM Reporting Lab: [address] [address] Performing Lab: [address] [address] [facility] CBC LYMPHOCYTES [#/VOLUME] IN BLOOD BY AUTOMATED COUNT 1.74 10*3/u L 0.77 - 4.50 11/06 Specimen Type: BLOOD No comment entered. Ordering Provider: CHRISSY RENAE MM Report Released Date/Time: Nov 07, 2023 10:50 AM Reporting Lab: [address] [address] Performing Lab: [address] [address] [facility] CBC MONOCYTES [#/VOLUME] IN BLOOD BY AUTOMATED COUNT 0.39 10*3/u L 0.19 - 0.80 11/06 Specimen Type: BLOOD No comment entered. Ordering Provider: CHRISSY RENAE MM Report Released Date/Time: Nov 07, 2023 10:50 AM Reporting Lab: [address] [address] Performing Lab: [address] [address] [facility] CBC NEUTROPHILS [#/VOLUME] IN BLOOD BY AUTOMATED COUNT 2.35 10*3/u L 2.10 - 8.00 11/06 Specimen Type: BLOOD No comment entered. Ordering Provider: CHRISSY RENAE MM Report Released Date/Time: Nov 07, 2023 10:50 AM Reporting Lab: [place] [phone] Performing Lab: [place] [phone] CBC EOSINOPHILS [#/VOLUME] IN BLOOD BY AUTOMATED COUNT 0.12 10*3/u L 0.00 - 0.60 11/06 Specimen Type: BLOOD No comment entered. Ordering Provider: CHRISSY RENAE MM Report Released Date/Time: Nov 07, 2023 10:50 AM Reporting Lab: [place] [phone] Performing Lab: [place] [phone] CBC BASOPHILS [#/VOLUME] IN BLOOD BY AUTOMATED COUNT 0.04 10*3/u L 0.00 - 0.20 11/06 Specimen Type: BLOOD No comment entered. Ordering Provider: CHRISSY RENAE MM Report Released Date/Time: Nov 07, 2023 10:50 AM Reporting Lab: [place] [phone] Performing Lab: [place] [phone] GLUCOSE,BL OOD-poct (STL) GLUCOSE [MASS/VOLUM E] IN BLOOD BY AUTOMATED TEST STRIP 112 mg/dL 72 - 99 10/03 H Specimen Type: BLOOD Comment: Test Performed by: [id number] Meter #: [id number] Ordering Provider: ELIJAH STAUFFER Report Released Date/Time: October 03, 2022 04:32 PM Reporting Lab: [address] [address] Performing Lab: [facility] [address] [facility] [address] [facility] Vital Signs Combined list of inpatient and outpatient Vital Signs from Department of Defense and Veterans Affairs, ranging from 12 months to all on record, depending upon the facility. Vital Sign Value Date Comments Source SYSTOLIC BLOOD PRESSURE 126 09/01/2024 15:01:00 [facility] DIASTOLIC BLOOD PRESSURE 79 09/01/2024 15:01:00 [facility] PULSE OXIMETRY 98 09/01/2024 15:01:00 S Billie [facility] WEIGHT 171.6 09/01/2024 15:01:00 [facility] BMI 22 kg/m2 09/01/2024 15:01:00 [facility] [facility] PAIN 8 09/01/2024 15:01:00 [facility] TEMPERATURE 97.5 09/01/2024 15:01:00 [facility] PULSE 76 09/01/2024 15:01:00 [facility] RESPIRATION 16 09/01/2024 15:01:00 [facility] SYSTOLIC BLOOD PRESSURE 132 01/16/2024 11:24:44 [facility] DIASTOLIC BLOOD PRESSURE 78 01/16/2024 11:24:44 [facility] PULSE OXIMETRY 97 01/16/2024 11:24:44 S Billie [facility] WEIGHT 176 01/16/2024 11:24:44 [facility] BMI 23 kg/m2 01/16/2024 11:24:44 [facility] PAIN 8 01/16/2024 11:24:44 [facility] HEIGHT 74 01/16/2024 11:24:44 [facility] TEMPERATURE 97.8 01/16/2024 11:24:44 [facility] PULSE 85 01/16/2024 11:24:44 [facility] Marg[facility]ita [facility] RESPIRATION 18 01/16/2024 11:24:44 [facility] DIV[facility] SYSTOLIC BLOOD PRESSURE 150 11/07/2023 10:14:21 [facility] DIASTOLIC BLOOD PRESSURE 92 11/07/2023 10:14:21 [facility] DIV[facility] PULSE OXIMETRY 98 11/07/2023 10:14:21 S Billie [facility] WEIGHT 159.7 11/07/2023 10:14:21 ST Margarita [facility] BMI 21 kg/m2 11/07/2023 10:14:21 [facility] Margarita [facility] DIV[facility] PAIN 7 11/07/2023 10:14:21 [facility] TEMPERATURE 97.6 11/07/2023 10:14:21 [facility] PULSE 100 11/07/2023 10:14:21 [facility] RESPIRATION 16 11/07/2023 10:14:21 [facility] SYSTOLIC BLOOD PRESSURE 151 10/08/2023 10:23:11 [facility] DIASTOLIC BLOOD PRESSURE 83 10/08/2023 10:23:11 [facility] PULSE OXIMETRY 100 10/08/2023 10:23:11 S Billie EZRA [facility] WEIGHT 176.8 10/08/2023 10:23:11 [facility] BMI 23 kg/m2 10/08/2023 10:23:[facility] PAIN 8 10/08/2023 10:23:[facility] TEMPERATURE 98.3 10/08/2023 10:23:11 ST. EZRA [facility] PULSE 96 10/08/2023 10:23:[facility] RESPIRATION 18 10/08/2023 10:23:11 [facility] Encounters Combined list of: 1) Encounters from Department of Veterans Affairs facilities going backup to the last 18 months, not all VA inpatient encounters are included; 2) Encounters from the Department of Defense facilities going backup to 280 months. Location Location Details Encounter Type Encounter Number Reason For Visit Attending Provider ADM Date DC Date Status Disposition Source [facility] HC PRO PHONE CALL 11-20 MIN [id number] Diagnos is: ICD-10- CM I63.9 Cerebra l infarct ion, unspeci fied ANA,CAR A A 04/03 [facility] ASSMT/REAS SESSMENT [id number] Diagnos is: ICD-10- CM M06.9 Rheumat oid arthrit is, unspeci DIONICIO Bolanos 04/12 [facility] Outpatient Encounter [id number] Jc TREVINO 04/16 [facility] Outpatient Encounter [id number] 04/17 [facility] ASSMT/REAS SESSMENT [id number] Diagnos is: ICD-10- CM M25.562 Pain in left knee JESUS HERNANDEZ L 04/22 [facility] Outpatient Encounter [id number] EM PETIT 04/25 [facility] Outpatient Encounter [id number] 04/29 [facility] PROGRAM INTAKE ASSESSMENT [id number] Diagnos is: ICD-10- CM M25.562 Pain in left knee MANDORCA,L FAISAL L 04/29 [facility] Outpatient Encounter [id number] 05/14 [facility] Outpatient Encounter [id number] 06/03 [facility] Outpatient Encounter [id number] 06/19 [facility] LIMIT ORAL EVAL PROBLM FOCUS [id number] Diagnos is: ICD-10- CM K08.409 Partial loss of teeth, unspeci fied cause, unspeci fied class DAE SO 06/21 [facility] Outpatient Encounter [id number] 1 ALAYNA ROMAN 06/21 [facility] Outpatient Encounter [id number] 06/25 [facility] Outpatient Encounter [id number] 06/26 [facility] Outpatient Encounter [id number] 06/26 [facility] Outpatient Encounter [id number] 07/05 [facility] HC PRO PHONE CALL 5-10 MIN [id number] Diagnos is: ICD-10- CM M25.562 Pain in left knee GABI PEREZ A 07/10 [facility] Outpatient Encounter [id number] 07/17 [facility] HC PRO PHONE CALL 11-20 MIN [id number] Diagnos is: ICD-10- CM M54.50 Low back pain, unspeci fied GABI PEREZ A 07/23 [facility] HC PRO PHONE CALL 11-20 MIN [id number] Diagnos is: ICD-10- CM M25.562 Pain in left knee MARYSTA CY L 07/23 [facility] Outpatient Encounter [id number] MARYSTA CY L 07/23 [facility] Outpatient Encounter [id number] 07/25 [facility] HC PRO PHONE CALL 21-30 MIN [id number] Diagnos is: ICD-10- CM M25.562 Pain in left knee MARYSTA CY L 07/28 [facility] PT EDUCATION NOC INDIVID [id number] [id number] Diagnos is: ICD-10- CM I63.9 Cerebra l infarct ion, unspeci fied THOMPSON EPPERSON M 07/29 [facility] PROGRAM INTAKE ASSESSMENT [id number] Diagnos is: ICD-10- CM M25.562 Pain in left knee MANDORCA,L FAISAL L 08/01 [facility] Outpatient Encounter [id number] 08/04 [facility] Outpatient Encounter [id number] 08/18 [facility] Outpatient Encounter [id number] VIOLETT,RE NEE D 08/20 [facility] HC PRO PHONE CALL 11-20 MIN [id number] Diagnos is: ICD-10- CM M54.50 Low back pain, unspeci fied POORNIMASHAYNADomenic A L 08/20 [facility] Outpatient Encounter [id number] EM PETIT L 08/25 [facility] HC PRO PHONE CALL 21-30 MIN [id number]. [id number] Diagnos is: ICD-10- CM I63.9 Cerebra l infarct ion, unspeci fied ANA,CAR A A 08/27 [facility] PROGRAM INTAKE ASSESSMENT [id number] Diagnos is: ICD-10- CM M06.9 Rheumat oid arthrit is, unspeci fied Margarita VENEGAS FAISAL L 08/28 [facility] Outpatient Encounter [id number] VIOLETT,RE NEE D 09/02 [facility] REMOVABLE PROSTHODON TIC PROC [id number] Diagnos is: ICD-10- CM K08.409 Partial loss of teeth, unspeci fied cause, unspeci fied class DAE SO 09/02 [facility] HC PRO PHONE CALL 21-30 MIN [id number] Diagnos is: ICD-10- CM M54.50 Low back pain, unspeci fied LASHA NOGUERA L 09/02 [facility] Outpatient Encounter [id number] [id number] LASHA NOGUERA L 09/02 [facility] PRO PHONE CALL 5-10 MIN [id number] [id number] Diagnos is: ICD-10- CM I63.9 Cerebra l infarct ion, unspeci fied ANA,CAR A A 09/17 [facility] Outpatient Encounter [id number] 09/17 [facility] PRO PHONE CALL 21-30 MIN [id number] [id number] Diagnos is: ICD-10- CM I63.9 Cerebra l infarct ion, unspeci fied ANA,CAR A A 09/19 [facility] Outpatient Encounter [id number] TIFFANY IRVIN 09/22 [facility] REMOVABLE PROSTHODON TIC PROC [id number] Diagnos is: ICD-10- CM K08.409 Partial loss of teeth, unspeci fied cause, unspeci fied class DAE SO 09/25 [facility] Outpatient Encounter [id number] 10/01 [facility] Outpatient Encounter [id number] ESTHER LEVY 10/02 [facility] Outpatient Encounter [id number]. [id number] 10/07 [facility] Outpatient Encounter [id number] [id number] Diagnos is: ICD-10- CM Z00.00 Encntr for general adult medical exam w/o abnorma l finding s ELIJAH STAUFFER BY R 10/07 [facility] REMOVABLE PROSTHODON TIC PROC [id number] Diagnos is: ICD-10- CM K08.409 Partial loss of teeth, unspeci fied cause, unspeci fied class DAE SO 10/07 [facility] Outpatient Encounter [id number] 10/07 [facility] Outpatient Encounter [id number] 10/07 [facility] Outpatient Encounter [id number] 10/09 [facility] HC PRO PHONE CALL 21-30 MIN [id number] [id number] Diagnos is: ICD-10- CM I63.9 Cerebra l infarct ion, unspeci fied ANACAR A A 10/20 [facility] REMOVABLE PROSTHODON TIC PROC [id number] Diagnos is: ICD-10- CM K08.409 Partial loss of teeth, unspeci fied cause, unspeci fied class DAE SO 10/28 [facility] Outpatient Encounter [id number] ELIJAH STAUFFER BY Sana 11/04 [facility] OFFICE O/P NEW LOW 30 MIN [id number] [id number] 7 Diagnos is: ICD-10- CM R21 Rash and other nonspec ific skin eruptio n TATA LUU I A 11/06 [facility] Outpatient Encounter [id number] ELIJAH STAUFFER BY Sana 11/06 [facility] Outpatient Encounter [id number] 11/06 [facility] Outpatient Encounter [id number] 11/06 [facility] Outpatient Encounter [id number] [id number] Diagnos is: ICD-10- CM Z04.89 Encount er for examina tion and observa tion for oth reasons CARLOS MINOR IEMargarita P 11/06 [facility] REMOVABLE PROSTHODON TIC PROC [id number] 9 Diagnos is: ICD-10- CM K08.409 Partial loss of teeth, unspeci fied cause, unspeci fied class DAE SO 11/17 [facility] Outpatient Encounter [id number] EM PETIT L 11/18 [facility] Outpatient Encounter [id number] EM PETIT L 11/20 [facility] [place] [id number] [id number] Diagnos is: ICD-10- CM K08.409 Partial loss of teeth, unspeci fied cause, unspeci fied class DAE SO 12/01 [facility] THERAPEUTI C EXERCISES [id number] [id number] Diagnos is: ICD-10- CM M25.512 Pain in left shoulde r CAROLINA HOWELL 12/04 [facility] Outpatient Encounter [id number] SHERRY GONGORA 12/04 [facility] Outpatient Encounter [id number] [id number] EM PETIT L 12/04 [facility] OFFICE O/P NEW MOD 45 MIN [id number] [id number] Diagnos is: ICD-10- CM I48.0 Paroxys mal atrial fibrill ation LOUISE CUBA 12/09 [facility] Outpatient Encounter [id number] PETIT,EM ELYN L 12/10 [facility] Outpatient Encounter [id number] [id number] PETIT,EV ELYN L 12/10 [facility] Outpatient Encounter [id number] 12/11 [facility] REMOVABLE PROSTHODON TIC PROC [id number] Diagnos is: ICD-10- CM K08.409 Partial loss of teeth, unspeci fied cause, unspeci fied class DAE SO 12/19 [facility] Outpatient Encounter [id number] 12/22 [facility] Outpatient Encounter [id number] 12/23 [facility] Outpatient Encounter [id number] [id number] 12/29 [facility] Outpatient Encounter [id number] 12/29 [facility] PT EDUCATION NOC INDIVID [id number] [id number] Diagnos is: ICD-10- CM I63.9 Cerebra l infarct ion, unspeci fied ANA,CAR A A 01/13 [facility] OFFICE O/P EST SF 10 MIN [id number] [id number] Diagnos is: ICD-10- CM R21 Rash and other nonspec ific skin eruptio Lucia Farooq E 01/15 [facility] REMOVABLE PROSTHODON TIC PROC [id number] Diagnos is: ICD-10- CM K08.409 Partial loss of teeth, unspeci fied cause, unspeci fied class DAE SO 01/16 [facility] Outpatient Encounter [id number] EM PETIT 01/16 [facility] Outpatient Encounter [id number] EM PETIT 01/20 [facility] Outpatient Encounter [id number] 01/23 [facility] Outpatient Encounter [id number] 02/03 [facility] REMOVABLE PROSTHODON TIC PROC [id number] Diagnos is: ICD-10- CM K08.409 Partial loss of teeth, unspeci fied cause, unspeci fied class DAE SO 02/09 [facility] Outpatient Encounter [id number] TIFFANY IRVIN 02/20 [facility] THERAPEUTI C EXERCISES [id number] Diagnos is: ICD-10- CM M25.569 Pain in unspeci fied knee MINA SHER 02/27 [facility] Outpatient Encounter [id number] 03/11 [facility] Outpatient Encounter [id number] 03/11 [facility] Outpatient Encounter [id number] 03/16 [facility] Outpatient Encounter [id number] 03/16 [facility] Outpatient Encounter [id number] RAMIREZSAMSON GAVIRIAM Heath 03/30 [facility] Outpatient Encounter [id number] ANA,GABI Lu A 04/01 [facility] Outpatient Encounter [id number] 04/03 [facility] PT EDUCATION NOC INDIVID [id number] Diagnos is: ICD-10- CM I63.9 Cerebra l infarct ion, unspeci fied ANAGABI Lu A 04/27 [facility] Outpatient Encounter [id number] PETIT,EM Avila 04/29 [facility] Outpatient Encounter [id number] 05/25 [facility] Outpatient Encounter [id number] 06/10 [facility] Outpatient Encounter [id number] 06/16 [facility] Outpatient Encounter [id number] 06/16 [facility] Outpatient Encounter [id number] 07/14 [facility] Outpatient Encounter [id number] 07/22 [facility] Outpatient Encounter [id number] 08/06 [facility] HLTH BHV ASSMT/REAS SESSMENT [id number] Diagnos is: ICD-10- CM I63.9 Cerebra l infarct ion, unspeci fied ANA,CAR A A 09/01 [facility] Outpatient Encounter [id number] 09/01 [facility] Outpatient Encounter [id number] 09/01 [facility] OFFICE O/P EST HI 40 MIN [id number] [id number] Diagnos is: ICD-10- CM I48.0 Paroxys mal atrial fibrill LOUSIE Fuentes 09/01 [facility] Outpatient Encounter [id number] 09/10 [facility] Outpatient Encounter [id number] 09/28 [facility] Social History Combined list of available smoking, tobacco, and other social history from Department of Defense and Veterans Affairs facilities. Social History Type Response Date Comment [facility] e Tobacco smoking status NHIS HI-TOBACCO NEVER USED 10/08/2023 [facility] History of tobacco use HI-TOBACCO NEVER USED 03/30/2022 [facility] History of tobacco use HI-TOBACCO NEVER USED 05/26/2020 [facility] History of tobacco use HI-TOBACCO NEVER USED 07/30/2018 [facility] History of tobacco use LIFETIME NON-USER OF TOBACCO 08/01/2016 [facility] History of tobacco use LIFETIME NON-USER OF TOBACCO 07/25/2015 [facility] This section is an empty social history section. [facility] Plan of Care List of future care activities from Department of Veterans [facility] facilities. Additional future care activities may be listed in the Assessment and Plan section. Date/Time Care Activity Care Activity Detail Facili ty 10/13/2024 AMBULATORY - MEDICINE AMBULATORY - MEDICI NE [facility] Advance Directives List of completed, amended, or rescinded Advance Directives on record at [facility] facilities. An actual copy of the Directive is not included. Date Advance Directive Provider Source 12/08/2020 ADVANCE DIRECTIVE MARYCRUZ [place] [facility]
--- OUTSIDE RECORDS SUMMARY | 2024-10-02 16:38 | XMS_ITS | Encounter Summary ---
Author Organization [facility] Address 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
--- OUTSIDE RECORDS SUMMARY | 2024-10-02 16:38 | XMS_ITS | Encounter Summary ---
Author Organization [facility] Address 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
--- OUTSIDE RECORDS SUMMARY | 2024-10-02 16:38 | XMS_ITS | Clinical Summary ---
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
--- OUTSIDE RECORDS SUMMARY | 2024-10-02 16:38 | XMS_ITS | Encounter Summary ---
Author Organization [employer] Address 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
--- OUTSIDE RECORDS SUMMARY | 2024-10-02 16:38 | XMS_ITS | Clinical Summary ---
Author Organization [facility] Address [address] [place] [address] Care Team Providers Care Concrete Engineer Name Role Phone Unavailable Primary Care Provider Unavailabl e Allergies Active Allergy Reactions Criticality Noted Date Comments Aspirin GI Intolerance 12/02/2018 Banana Itching Medium 02/07/2014 Latex Itching Medium 02/07/2014 Metoclopramide Other (See Comments) High 11/13/2019 Ataxia and other parkinson like symptoms Penicillins Hives,Rash Medium 08/08/2010 Sulfa Antibiotics Swelling,Rash Medium 08/08/2010 Medications pancrelipase, Efw-Hhpm-Tmpf, (PANCREAZE) 39036 units capsule Take 3 capsules by mouth [...] Comments Blood Pressure 139/77 05/05/2020 8:25 AM FLIGHT SURGEON Pulse 93 05/05/2020 8:25 AM FLIGHT SURGEON Temperature 36.2 C (97.1 F) 05/05/2020 8:25 AM FLIGHT SURGEON Respiratory Rate 18 05/05/2020 8:25 AM FLIGHT SURGEON Oxygen Saturation 97% 05/05/2020 8:25 AM FLIGHT SURGEON Inhaled Oxygen Concentration - - Weight 78.2 kg (172 lb 6.4 oz) 05/01/2020 6:56 A M FLIGHT SURGEON Height 188 cm (6' 2 ) 04/24/2020 5:13 PM FLIGHT SURGEON Body Mass Index 22.13 04/24/2020 5:13 PM FLIGHT SURGEON Plan of Treatment Not on file Advance [...]
--- OUTSIDE RECORDS SUMMARY | 2024-10-02 16:38 | XMS_ITS | Encounter Summary ---
Author Organization [employer] Address 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 Phone Number INTERFACE SYSTEM Refer to clinic/hospital department * HEPATITIS B SURFACE ANTIGEN (08/30/2006 11:44 AM CDT) HEPATITIS B SURFACE AG NON-REACTI VE NON-REACT AMISH INTERFACE SYSTEM Comment: Lab test performed by: [facility] [id number] [place] [address] [address] BANG CHRIS MD 08/30/2006 11:4 4 AM CDT us Preston Patel MD CHEMISTRY ORDERABLES Edited Performing Organization Address [facility] Phone Number INTERFACE SYSTEM Refer to clinic/hospital department * HIV RAPID SCREEN (08/30/2006 11:44 AM CDT) RAPID HIV SCREEN Nonreactive Nonreactive INTERFACE SYSTEM Comment:Results called to Zachary keene at 08/30/2006 12:04 PM and read back verified. 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
== END 2024-10-02 16:53 | disposition home or self-care (01) ==
LOC: ANHED 11:11 → ANHSURGERY 16:35
PROVIDERS: Emergency Provider Registered Nurse; PCP Internal Medicine; Visit Provider Internal Medicine Gastroenterology
PROC: 0DJ08ZZ Inspection of Upper Intestinal Tract, Via Natural or Artificial Opening Endoscopic (ICD-10-PCS; CPT 43247; principal; 2024-10-02 14:45)
DX: T18.128A Food in esophagus causing other injury, initial encounter (principal); B37.81 Candidal esophagitis; W44.F3XA Food entering into or through a natural orifice, initial encounter; I10 Essential (primary) hypertension; E78.5 Hyperlipidemia, unspecified; E11.9 Type 2 diabetes mellitus without complications; N40.0 Benign prostatic hyperplasia without lower urinary tract symptoms; I48.91 Unspecified atrial fibrillation; Z79.82 Long term (current) use of aspirin; Z79.02 Long term (current) use of antithrombotics/antiplatelets; Z79.891 Long term (current) use of opiate analgesic; Z79.4 Long term (current) use of insulin; Z79.84 Long term (current) use of oral hypoglycemic drugs; Z82.49 Family history of ischemic heart disease and other diseases of the circulatory system
CPT/HCPCS: 43247; 43239; 36415; 71046; 80053; 81001; 82948; 83690; 85025; 85610; 85730; 88305; J1610; J2003; J2704; J7120

== ENCOUNTER 2024-12-25 10:01 | Emergency (ER) | payer MEDICARE, BC, OTHER, SELFPAY ==
--- NOTE | ~2024-12-25 | XR_ITS ---
XR knee RT min 4V 12/25/2024 11:42 Indication: Right knee pain after fall Procedure: 4 views right knee Comparison: No prior studies for comparison. Findings: Severe tricompartment osteoarthritis of the right knee. No fracture, subluxation or disloca tion. Prominent tibial tubercle. There is atherosclerosis. Impression: 1: No acute fracture. Reviewed, dictated and finalized at location A. Impression: 1: No acute fracture.
--- NOTE | ~2024-12-25 | CT_ITS ---
EXAMINATION: CT pelvis wo con DATE: 12/25/2024 11:29 INDICATION: Tailbone and hip pain post fall TECHNIQUE: High resolution computed tomography (CT) of the pelvis was performed without intravenous c ontrast. Additional sagittal and coronal reconstructions were performed. Automated exposure control a nd iterative reconstruction technique were employed. The dose-length product was 272.92 mGy-cm. COMPARISON: None FINDINGS: There is a very subtle nondisplaced fracture extending transversely across the S4 segment, entering t he bilateral S1 neural foramina but unclear where there is further extension more laterally across th e sacral ala. There is a second minimally displaced oblique coronally oriented fracture extending acr oss the S6 segment. Alignment remains essentially anatomic. No other fractures identified. Mild osteo arthritis at the left hip and mild to moderate osteoarthritis at the right hip, both with moderate si ze marginal osteophytes along the acetabular. No hip joint effusions. Mild osteoarthritis at the bila teral sacralized joints with bridging osteophytes along portions of the margins of the sacral iliac j oints. Moderate lower lumbar spondylosis with severe facet osteoarthritis at L4-L5 and L5-S1. There a re bridging osteophytes anteriorly and on the left at L5-S1 and nearly bridging anterior osteophytes at L5-S1. Additionally there are enthesophytes along the bilateral anterior and posterior iliac spine s and at the bilateral ischial tuberosities and lesser and greater trochanters. Small fat-containing right inguinal hernia. Changes likely prior prostatectomy. There are few diverticula along the visual ized sigmoid colon without adjacent inflammatory change to suggest a vasculitis. Normal appendix. No free fluid in the pelvis. IMPRESSION: 1. Nondisplaced fracture extending across the S4 segment and minimally displaced fracture at the L6 s egment. 2. Degenerative skeletal changes in the visualized lower lumbar spine and in the pelvis including mil d left and mild to moderate right hip osteoarthritis. No other acute osseous adenopathy. Reviewed, dictated and finalized at location A. IMPRESSION: 1. Nondisplaced fracture extending across the S4 segment and minimally displace d fracture at the L6 segment. 2. Degenerative skeletal changes in the visualized lower lumbar spine and in th e pelvis including mild left and mild to moderate right hip osteoarthritis. No other acute osseous adenopathy.
[2024-12-25 10:03] VITALS: BP 134/79; PULSE 84; RESP 16; TEMP 36.6; O2SAT 100
--- OUTSIDE RECORDS SUMMARY | 2024-12-25 10:07 | XMS_ITS | Encounter Summary ---
Author Organization [facility] Address [address] [place] [address] Care Team Providers Care Thread Spooler Name Role Phone Maxim Martínez MD Primary Care Provider Maxim Martínez MD Unavailable Eboni Watkins Unavailable [phone] Cheyanne Allan MD Unavailable [phone] Betzy Montana MD Unavailable [phone] Manisha Cao RN Unavailable Dora Peraza MD Unavailable Encounter Details Date Type Department Care Team (Late st Contact Info) Description 04/22/2020 2:09 PM PATIENT REGISTRATION REPRESENTATIVE Hospital Encounter [address] [address] Laureen Roberts MD [facility] [address] [place] [phone] Nena [place] [address] [facility] [place] [address] [employer] Social History Tobacco [...] Recorded Patient Health Questionnaire-2 Score 0 02/04/2024 [facility] [place] [facility] - Occupational Stress [...] on file Legal Sex Male 1:20 PM PATIENT REGISTRATION REPRESENTATIVE Gender Identity Not on file Sexual [...] COVID-19 Confirmed 04/13/2020 04/13/2020 0 4:34 AM PATIENT REGISTRATION REPRESENTATIVE C DIFF 04/22/2020 04/22/2020 09/23/2020 8:37 AM CDT COVID-19 Confirmed Comment:Added from external infection. 08/01/2020 12/23/2020 8:11 AM C DT COVID-19 Under Investigation 03/02/2022 03/02/2022 03/02/2022 3:05 PM CDT CDIFF Under Investigation 07/29/2022 07/29/2022 7:20 AM CDT documented as of this encounter Care Teams Thread Spooler Relationship Specialty Start Date End Date Maxim Martínez MD PCP - General 02/11/20 10/16/20 Eboni Watkins APRN-ART GILDER [address] [place] [address] PCP - Attributed-MSSP 11/11/19 11/09/20 Maxim Martínez MD Family Medicine 02/11/20 08/03/20 [place] [address] [facility] [address] [place] [address] Urology 03/20/16 01/17/21 Betzy Montana MD [address] [place] [address] [address] [place], [place] [id number] Rheumatology 11/24/19 Manisha Cao RN Lathe Set Up OperatorGolf Teacher 02/10/20 09/22/23 [place] [address] [place], [place] [id number] Orthopedic Surgery 03/14/20 documented as of this encounter
--- OUTSIDE RECORDS SUMMARY | 2024-12-25 10:07 | XMS_ITS | Continuity of Care Document ---
Author Name [facility] Organization [facility] Care Team Providers Care Inspector Outside Production Name Role Phone [facility] Unavailable Unavailable Problems Combined list of problems from Department of Defense and [facility] Affairs facilities. It does not include entries that were removed or entered in error. Problem Status Onset Date Problem Type Date of Resolution Comments Source Atrial fibrillation Active Condition [facility] Benign essential hypertension Active Condition [facility] Benign prostatic hyperplasia Active Condition [facility] Bunion Active Condition [facility] Cerebral infarction Active Condition [facility] Cyst Active Condition [facility] Gastroesophageal reflux disease Active Condition [facility] Hyperlipidemia Active Condition [facility] Knee pain (SNOMED CT [id number]) Active Condition [facility] Osteoarthritis of lumbar spine Active Condition [facility] Osteoarthritis of shoulder Active Condition [facility] Peripheral nerve disease Active Condition [facility] Rheumatoid arthritis Active Condition [facility] Seizure Active Condition [facility] Type 2 diabetes mellitus Active Condition [facility] Clostridium difficile colitis Inactive Condition 04/01/2022 [facility] DIAPHRAGMATIC HERNIA Inactive Condition 10/10/2023 [facility] OSTEOARTHROS NOS-UNSPEC Inactive Condition 10/10/2023 [facility] PEPTIC ULCER NOS Inactive Condition 10/10/2023 [facility] ROUTINE MEDICAL EXAM Inactive Condition 04/01/2022 [facility] Diagnosis: ICD-10-CM I63.9 Cerebral infarction, unspecified Active Diagnosis [facility] Diagnosis: ICD-10-CM I48.0 Paroxysmal atrial fibrillation Active Diagnosis [facility] Diagnosis: ICD-10-CM M25.569 Pain in unspecified knee Active Diagnosis [facility] JOHN [facility] Diagnosis: ICD-10-CM K08.409 Partial loss of teeth, unspecified cause, unspecified class Active Diagnosis [facility] Diagnosis: ICD-10-CM R21 Rash and other nonspecific skin eruption Active Diagnosis [facility] Diagnosis: ICD-10-CM M25.512 Pain in left shoulder Active Diagnosis [facility] Diagnosis: ICD-10-CM Z04.89 Encounter for examination and observation for oth reasons Active Diagnosis [facility] Diagnosis: ICD-10-CM Z00.00 Encntr for general adult medical exam w/o abnormal findings Active Diagnosis [facility] Diagnosis: ICD-10-CM M54.50 Low back pain, unspecified Active Diagnosis [facility] Diagnosis: ICD-10-CM M06.9 Rheumatoid arthritis, unspecified Active Diagnosis [facility] Diagnosis: ICD-10-CM M25.562 Pain in left knee Active Diagnosis [facility] Medications Combined list of outpatient medications from [...] ORAL ACTIVE LETITIA STAUFFER BRIGHTY R 2022 [facility] AMYLASE 24,000UNIT/ LIPASE 5,000UNIT/P ROTEASE 17,000UNIT CAP,EC TAKE 3 CAPSULES BY MOUTH THREE TIMES A DAY BEFORE MEALS ORAL ACTIVE LETITIA STAUFFER NEREYDA R 2021 [facility] APIXABAN 5MG TAB TAKE ONE TABLET BY MOUTH TWICE A DAY ORAL ACTIVE LETITIA STAUFFER LBY R 2022 [facility] ATORVASTATI N CA 40MG TAB TAKE ONE-HALF TABLET BY MOUTH EVERY EVENING ORAL ACTIVE YOKASTA BOOKER MD 2019 [facility] BETHANECHOL CL 25MG TAB TAKE TWO TABLETS BY MOUTH THREE TIMES A DAY ORAL ACTIVE LETITIA STAUFFER R 2021 [facility] CHLORHEXIDI NE GLUCONATE 4% LIQUID,TOP APPLY MODERATE AMOUNT TO AFFECTED AREA(S) DIRECTED (TOPICAL USE ONLY) AVOID CONTACT WITH EYES. CHIARA TRINIDAD INUED BY PROVIDE R 12/07/2023 [id number] SILKE RENAE MM 2023 120 [facility] N CLOPIDOGREL BISULFATE 75MG TAB TAKE ONE TABLET BY MOUTH ONCE A DAY ORAL ACTIVE LETITIA STAUFFER R 2022 [facility] DIAZEPAM 5MG TAB TAKE ONE TABLET BY MOUTH ONE-TIME FOR ANXIETY AVOID TAKING WITH GRAPEFRU IT JUICE. PLEASE TAKE 30-60 MINUTES PRIOR TO MRI. ORAL 02/20/2024 [id number] LETITIA STAUFFER R 2023 1 [facility] N FINASTERIDE 5MG TAB TAKE ONE TABLET BY MOUTH ONCE A DAY ORAL ACTIVE LETITIA STAUFFER R 2021 [facility] HYDROCODONE 7.5MG/ACETA MINOPHEN 325MG TAB TAKE ONE TABLET BY MOUTH EVERY 6 HOURS NEEDED ORAL ACTIVE YOKASTA BOOKER MD 2017 [facility] INSULIN,ASP ART,HUMAN 100 UNT/ML INJ INJECT 2 UNITS UNDER THE SKIN THREE TIMES A DAY BEFORE MEALS SUBCUT ANEOUS ACTIVE LETITIA STAUFFER R 2021 [facility] LATANOPROST 0.005% SOLN,OPH INSTILL 1 DROP IN BOTH EYES EVERY EVENING OPHTHA LMIC ACTIVE YOKASTA BOOKER MD 2017 [facility] LEVETIRACET AM 500MG TAB TAKE TWO TABLETS BY MOUTH TWICE A DAY ORAL ACTIVE LETITIA STAUFFER R 2022 [facility] MAGNESIUM OXIDE 400MG TAB TAKE ONE TABLET BY MOUTH ONCE A DAY ORAL ACTIVE LETITIA STAUFFER R 2022 [facility] METFORMIN HCL 1000MG/SAXA GLIPTIN 2.5MG 24 HR TAB,SA TAKE TWO TABLETS BY MOUTH ONCE A DAY ORAL ACTIVE LETITIA STAUFFER LBY R 2022 [facility] METHYLPREDN ISOLONE (methylpred nisolone), 4 MG, TAB DS PK, ORAL, Shed[employer], 21 ea. DOSE-PACK Active [id number] 2023 21 [facility] PANTOPRAZOL E NA 40MG TAB,EC TAKE ONE TABLET BY MOUTH EVERY MORNING ORAL ACTIVE YOKASTA BOOKER MD 2015 [facility] PREGABALIN 75MG CAP,ORAL TAKE 1 CAPSULE BY MOUTH AT BEDTIME ORAL ACTIVE EH,LETITIA LBY R 2021 [facility] SOTALOL TAB TAKE BY MOUTH TWICE A DAY ORAL ACTIVE STAUFFERLETITIAY R 2021 [facility] TAMSULOSIN HCL 0.4MG CAP TAKE 1 CAPSULE BY MOUTH EVERY EVENING ORAL ACTIVE YOKASTA BOOKER MD 2018 [facility] Allergies, Adverse Reactions, Alerts Combined list of allergies from [facility] and Veterans Affairs facilities. It does not include entries that were removed or entered in error. Substance Category Reaction Severity Reaction type Status Date Reported Comments Source METOCLOPRAMID E Drug allergy (disorder) Renal failure syndrome active 3 [facility] PENICILLIN Propensity to adverse reactions to drug (finding) active 7 [facility] PENICILLINS Drug allergy (disorder) active 7 [facility] REGLAN Propensity to adverse reactions to drug (finding) Renal failure syndrome active 3 [facility] Propensity to adverse reactions to drug (finding) active 7 [facility] Immunizations Combined list of available immunizations from the Department of [facility] and [facility] Affairs facilities. Immunization Series Date Given Administered By Site Reaction Lot Number CVX Code Drug Reservation Agent Status Comments Source COVID-19 (MODERNA), MRNA, LNP-S, PF, 50 MCG/0.5 ML (AGES 12+ YEARS) 2 2023 312 complet ed HISTORICA L INFORMATI ON - FROM OTHER [facility] N INFLUENZA, ADJUVANTED, TRIVALENT, PF 6 2023 168 complet ed HISTORICA L INFORMATI ON - FROM OTHER [facility], [facility] N ZOSTER RECOMBINANT 2 2022 RACHEL WOODRUFF RIGHT DELTO ID [id number] 187 complet ed [facility] ZOSTER RECOMBINANT 2022 KELVIN LEVY RIGHT DELTO ID [id number] 187 complet ed [facility] INFLUENZA, UNSPECIFIED FORMULATION 2021 88 complet ed HISTORICA L INFORMATI ON - SOURCE UNSPECIFI [facility] COVID-19 ([facility]), MRNA, LNP-S, BIVALENT, PF, 30 MCG/0.3 ML DOSE 1 2021 300 complet ed HISTORICA L INFORMATI ON - FROM OTHER [facility], [facility] N INFLUENZA VACCINE, QUADRIVALENT, ADJUVANTED 5 2021 205 complet ed HISTORICA L INFORMATI ON - FROM OTHER [facility] N COVID-19 ([facility]), MRNA, LNP-S, PF, 30 MCG/0.3 ML DOSE, DAWN-SUCROSE (AGES 12+ YEARS) 4 2021 217 complet ed HISTORICA L INFORMATI ON - FROM OTHER [facility], [facility] N INFLUENZA VACCINE, QUADRIVALENT, ADJUVANTED 4 2020 205 complet ed HISTORICA L INFORMATI ON - FROM OTHER [facility] N COVID-19 ([facility]), MRNA, LNP-S, PF, 30 MCG/0.3 ML DOSE 3 2020 208 complet ed HISTORICA L INFORMATI ON - FROM OTHER [facility] N COVID-19 ([facility]), MRNA, LNP-S, PF, 30 MCG/0.3 ML DOSE 2 03/26/ 2021 208 complet ed HISTORICA L INFORMATI ON - FROM OTHER REGISTRY, [facility] COVID-19 (PFIZER), MRNA, LNP-S, PF, 30 MCG/0.3 ML DOSE 1 2020 208 complet ed HISTORICA L INFORMATI ON - FROM OTHER REGISTRY, [facility] N INFLUENZA, UNSPECIFIED FORMULATION 2019 88 complet ed [facility] N INFLUENZA, RECOMBINANT, QUADRIVALENT, INJECTABLE, PRESERVATIVE FREE 3 2019 185 complet ed HISTORICA L INFORMATI ON - FROM OTHER REGISTRY, [facility] N HEP A-HEP B 1 2019 104 complet ed HISTORICA L INFORMATI ON - FROM OTHER REGISTRY, [facility] N TDAP 1 2019 115 complet ed HISTORICA L INFORMATI ON - FROM OTHER REGISTRY, [facility] INFLUENZA, HIGH DOSE SEASONAL 2 2018 135 complet ed HISTORICA L INFORMATI ON - FROM OTHER REGISTRY, [facility] N INFLUENZA, UNSPECIFIED FORMULATION 2018 88 complet ed [facility] N INFLUENZA, INJECTABLE, QUADRIVALENT, PRESERVATIVE FREE 1 2018 150 complet ed HISTORICA L INFORMATI ON - FROM OTHER REGISTRY, [facility] N INFLUENZA, UNSPECIFIED FORMULATION 2017 88 complet ed [facility] PNEUMOCOCCAL POLYSACCHARID E PPV23 2016 33 complet ed [facility] N INFLUENZA, UNSPECIFIED FORMULATION 2016 88 complet ed [place] S TDAP 1 2016 115 complet ed HISTORICA L INFORMATI ON - FROM OTHER REGISTRY, [facility] N PNEUMOCOCCAL CONJUGATE PCV 13 2016 133 complet ed by non il pcp [facility] N INFLUENZA, UNSPECIFIED FORMULATION 2016 88 complet ed [facility] N INFLUENZA, HIGH DOSE SEASONAL 1 2015 135 complet ed HISTORICA L INFORMATI ON - FROM OTHER REGISTRY, [facility] N PNEUMOCOCCAL CONJUGATE PCV 13 1 2015 133 complet ed HISTORICA L INFORMATI ON - FROM OTHER REGISTRY, [facility] N TDAP 2013 115 complet ed [facility] N Results Combined list of recent [...] Nov 07, 2023 10:50 AM Reporting Lab: [address] [address] Performing Lab: [address] [address] [facility] BASIC METABOLIC PANEL UREA NITROGEN [MASS/VOLUM E] IN SERUM OR PLASMA 17.7 mg/dL 9.0 - 25.0 11/06 Specimen Type: PLASMA Comment: No hemolysis noted. Ordering Provider: CHRISSY RENAE MM Report Released Date/Time: Nov 07, 2023 10:50 AM Reporting Lab: [address] [address] Performing Lab: [address] [address] [facility] BASIC METABOLIC PANEL GLUCOSE [MASS/VOLUM E] IN SERUM OR PLASMA 136 mg/dL 72 - 99 11/06 H Specimen Type: PLASMA Comment: No hemolysis noted. Ordering Provider: CHRISYS RENAE MM Report Released Date/Time: Nov 07, 2023 10:50 AM Reporting Lab: [address] [address] Performing Lab: [address] [address] [facility] BASIC METABOLIC PANEL SODIUM [MOLES/VOLU ME] IN SERUM OR PLASMA 138 meq/L 136 - 145 11/06 Specimen Type: PLASMA Comment: No hemolysis noted. Ordering Provider: CHRISSY RENAE MM Report Released Date/Time: Nov 07, 2023 10:50 AM Reporting Lab: [facility] [address] [facility] [address] Performing Lab: [facility] [address] [place] [address] [facility] BASIC METABOLIC PANEL POTASSIUM [MOLES/VOLU ME] IN SERUM OR PLASMA 3.5 meq/L 3.5 - 5 11/06 Specimen Type: PLASMA Comment: No hemolysis noted. Ordering Provider: CHRISSY RENAE MM Report Released Date/Time: Nov 07, 2023 10:50 AM Reporting Lab: [address] [address] Performing Lab: [address] [address] [facility] BASIC METABOLIC PANEL CHLORIDE [MOLES/VOLU ME] IN SERUM OR PLASMA 103 meq/L 98 - 107 11/06 Specimen Type: PLASMA Comment: No hemolysis noted. Ordering Provider: CHRISSY RENAE MM Report Released Date/Time: Nov 07, 2023 10:50 AM Reporting Lab: [address] [address] Performing Lab: [address] [address] [facility] BASIC METABOLIC PANEL CARBON DIOXIDE, TOTAL [MOLES/VOLU ME] IN SERUM OR PLASMA 25 meq/L 22 - 31 11/06 Specimen Type: PLASMA Comment: No hemolysis noted. Ordering Provider: CHRISSY RENAE MM Report Released Date/Time: Nov 07, 2023 10:50 AM Reporting Lab: [place] [address] [facility] [address] Performing Lab: [address] [address] [facility] BASIC METABOLIC PANEL CALCIUM [MASS/VOLUM E] IN SERUM OR PLASMA 10.2 mg/dL 8.4 - 10.4 11/06 Specimen Type: PLASMA Comment: No hemolysis noted. Ordering Provider: CHRISSY RENAE MM Report Released Date/Time: Nov 07, 2023 10:50 AM Reporting Lab: [place] [address] Performing Lab: [place] [id number] BASIC METABOLIC PANEL GLOMERULAR FILTRATION RATE/1.73 SQ M.PREDICTED [VOLUME RATE/AREA] IN SERUM, PLASMA OR BLOOD BY CREATININE- BASED FORMULA (CKD-EPI 2020) 58.2 60 11/06 Specimen Type: PLASMA Comment: No hemolysis noted. Ordering Provider: CHRISSY RENAE MM Report Released Date/Time: Nov 07, 2023 10:50 AM Reporting Lab: [place] [phone] Performing Lab: [place] [id number] CBC LEUKOCYTES [#/VOLUME] IN BLOOD BY AUTOMATED COUNT 4.7 10*3/u L 3.6 - 11.2 11/06 Specimen Type: BLOOD No comment entered. Ordering Provider: CHRISSY RENAE MM Report Released Date/Time: Nov 07, 2023 10:50 AM Reporting Lab: [place] [phone] Performing Lab: [place] [id number] CBC ERYTHROCYTE S [#/VOLUME] IN BLOOD BY AUTOMATED COUNT 4.60 10*6/u L 4.10 - 5.70 11/06 Specimen Type: BLOOD No comment entered. Ordering Provider: CHRISSY RENAE MM Report Released Date/Time: Nov 07, 2023 10:50 AM Reporting Lab: [address] [address] Performing Lab: [address] [phone] [place] [address] CBC HEMOGLOBIN [MASS/VOLUM E] IN BLOOD 12.2 g/dL 13.1 - 16.8 11/06 L Specimen Type: BLOOD No comment entered. Ordering Provider: CHRISSY RENAE MM Report Released Date/Time: Nov 07, 2023 10:50 AM Reporting Lab: [address] [address] Performing Lab: [address] CBC HEMATOCRIT [VOLUME FRACTION] OF BLOOD 37.8 38.2 - 48.4 11/06 L Specimen Type: BLOOD No comment entered. Ordering Provider: CHRISSY RENAE MM Report Released Date/Time: Nov 07, 2023 10:50 AM Reporting Lab: [address] [address] Performing Lab: [address] [phone] CBC MCV [ENTITIC VOLUME] BY AUTOMATED COUNT 82.2 fL 80.0 - 100.0 11/06 Specimen Type: BLOOD No comment entered. Ordering Provider: CHRISSY RENAE MM Report Released Date/Time: Nov 07, 2023 10:50 AM Reporting Lab: [address] [address] Performing Lab: [address] [address] [facility] CBC MCH [ENTITIC MASS] BY AUTOMATED COUNT 26.5 pg 27.0 - 34.0 11/06 L Specimen Type: BLOOD No comment entered. Ordering Provider: CHRISSY RENAE MM Report Released Date/Time: Nov 07, 2023 10:50 AM Reporting Lab: [address] [address] Performing Lab: [address] [address] [facility] CBC MCHC [MASS/VOLUM E] BY AUTOMATED COUNT 32.3 g/dL 33.0 - 36.0 11/06 L Specimen Type: BLOOD No comment entered. Ordering Provider: CHRISSY RENAE MM Report Released Date/Time: Nov 07, 2023 10:50 AM Reporting Lab: [address] [address] Performing Lab: [address] [address] [facility] CBC PLATELETS [#/VOLUME] IN BLOOD BY AUTOMATED COUNT 340 10*3/u L 150 - 400 11/06 Specimen Type: BLOOD No comment entered. Ordering Provider: CHRISSY RENAE MM Report Released Date/Time: Nov 07, 2023 10:50 AM Reporting Lab: [address] [address] Performing Lab: [address] [address] [facility] CBC PLATELET MEAN VOLUME [ENTITIC VOLUME] IN BLOOD BY AUTOMATED COUNT 8.6 fL 7.5 - 11.2 11/06 Specimen Type: BLOOD No comment entered. Ordering Provider: CHRISSY RENAE MM Report Released Date/Time: Nov 07, 2023 10:50 AM Reporting Lab: [address] [address] Performing Lab: [address] [address] [facility] CBC ERYTHROCYTE DISTRIBUTIO N WIDTH [RATIO] BY AUTOMATED COUNT 16.4 11.8 - 15.1 11/06 H Specimen Type: BLOOD No comment entered. Ordering Provider: CHRISSY RENAE MM Report Released Date/Time: Nov 07, 2023 10:50 AM Reporting Lab: [facility] [address] [facility] [address] Performing Lab: [facility] [address] [facility] [address] [facility] CBC LYMPHOCYTES /100 LEUKOCYTES IN BLOOD BY AUTOMATED COUNT 37 11/06 Specimen Type: BLOOD No comment entered. Ordering Provider: CHRISSY RENAE MM Report Released Date/Time: Nov 07, 2023 10:50 AM Reporting Lab: [facility] [address] [facility] [address] Performing Lab: [facility] [address] [facility] [address] [facility] CBC MONOCYTES/1 00 LEUKOCYTES IN BLOOD BY AUTOMATED COUNT 8 11/06 Specimen Type: BLOOD No comment entered. Ordering Provider: CHRISSY RENAE MM Report Released Date/Time: Nov 07, 2023 10:50 AM Reporting Lab: [facility] [address] [facility] [address] Performing Lab: [facility] [address] [facility] [phone] [facility] CBC NEUTROPHILS /100 LEUKOCYTES IN BLOOD BY AUTOMATED COUNT 51 11/06 Specimen Type: BLOOD No comment entered. Ordering Provider: CHRISSY RENAE MM Report Released Date/Time: Nov 07, 2023 10:50 AM Reporting Lab: [facility] [address] [facility] [address] Performing Lab: [facility] [address] [facility] [address] [facility] CBC EOSINOPHILS /100 LEUKOCYTES IN BLOOD BY AUTOMATED COUNT 3 11/06 Specimen Type: BLOOD No comment entered. Ordering Provider: CHRISSY RENAE MM Report Released Date/Time: Nov 07, 2023 10:50 AM Reporting Lab: [facility] [address] [facility] [address] Performing Lab: [facility] [address] [facility] [address] [facility] CBC BASOPHILS/1 00 LEUKOCYTES IN BLOOD BY AUTOMATED COUNT 1 11/06 Specimen Type: BLOOD No comment entered. Ordering Provider: CHRISSY RENAE MM Report Released Date/Time: Nov 07, 2023 10:50 AM Reporting Lab: [place] [address] [facility] [address] Performing Lab: [address] [address] [facility] CBC LYMPHOCYTES [#/VOLUME] IN BLOOD BY AUTOMATED COUNT 1.74 10*3/u L 0.77 - 4.50 11/06 Specimen Type: BLOOD No comment entered. Ordering Provider: CHRISSY RENAE MM Report Released Date/Time: Nov 07, 2023 10:50 AM Reporting Lab: [address] [address] Performing Lab: [place] [address] [facility] [address] [facility] CBC MONOCYTES [#/VOLUME] IN BLOOD BY AUTOMATED COUNT 0.39 10*3/u L 0.19 - 0.80 11/06 Specimen Type: BLOOD No comment entered. Ordering Provider: CHRISSY RENAE MM Report Released Date/Time: Nov 07, 2023 10:50 AM Reporting Lab: [address] [address] Performing Lab: [address] [address] [facility] CBC NEUTROPHILS [#/VOLUME] IN BLOOD BY AUTOMATED COUNT 2.35 10*3/u L 2.10 - 8.00 11/06 Specimen Type: BLOOD No comment entered. Ordering Provider: CHRISSY RENAE MM Report Released Date/Time: Nov 07, 2023 10:50 AM Reporting Lab: [address] [address] Performing Lab: [address] [place] [address] [facility] CBC EOSINOPHILS [#/VOLUME] IN BLOOD BY AUTOMATED COUNT 0.12 10*3/u L 0.00 - 0.60 11/06 Specimen Type: BLOOD No comment entered. Ordering Provider: CHRISSY RENAE MM Report Released Date/Time: Nov 07, 2023 10:50 AM Reporting Lab: [address] [address] Performing Lab: [address] [address] [facility] CBC BASOPHILS [#/VOLUME] IN BLOOD BY AUTOMATED COUNT 0.04 10*3/u L 0.00 - 0.20 11/06 Specimen Type: BLOOD No comment entered. Ordering Provider: CHRISSY RENAE MM Report Released Date/Time: Nov 07, 2023 10:50 AM Reporting Lab: [address] [address] Performing Lab: [address] [address] [facility] Vital Signs Combined list of inpatient and outpatient Vital Signs from Department of Defense and Veterans Affairs, ranging from 12 months to all on record, depending upon the facility. Vital Sign Value Date Comments Source SYSTOLIC BLOOD PRESSURE 126 09/01/2024 15:01:00 [facility] DIASTOLIC BLOOD PRESSURE 79 09/01/2024 15:01:00 [facility] PULSE OXIMETRY 98 09/01/2024 15:01:00 [facility] WEIGHT 171.6 09/01/2024 15:01:00 [facility] BMI 22 kg/m2 09/01/2024 15:01:00 [facility] PAIN 8 09/01/2024 15:01:00 [facility] TEMPERATURE 97.5 09/01/2024 15:01:00 [facility] PULSE 76 09/01/2024 15:01:00 [facility] RESPIRATION 16 09/01/2024 15:01:00 [facility] SYSTOLIC BLOOD PRESSURE 132 01/16/2024 11:24:44 [facility] DIASTOLIC BLOOD PRESSURE 78 01/16/2024 11:24:44 [facility] PULSE OXIMETRY 97 01/16/2024 11:24:44 [facility] WEIGHT 176 01/16/2024 11:24:44 [facility] BMI 23 kg/m2 01/16/2024 11:24:44 [facility] PAIN 8 01/16/2024 11:24:44 [facility] HEIGHT 74 01/16/2024 11:24:44 [facility] TEMPERATURE 97.8 01/16/2024 11:24:44 [facility] PULSE 85 01/16/2024 11:24:44 [facility] RESPIRATION 18 01/16/2024 11:24:44 [facility] Encounters Combined list of: 1) Encounters from Department of Veterans Affairs facilities going backup to the last 18 months, not all VA inpatient encounters are included; 2) Encounters from the Department of Defense facilities going backup to 280 months. Location Location Details Encounter Type Encounter Number Reason For Visit Attending Provider ADM Date DC Date Status Disposition Source [facility] Outpatient Encounter [id number] 07/05 [facility] HC PRO PHONE CALL 5-10 MIN [id number] Diagnos is: ICD-10- CM M25.562 Pain in left knee ANACAR A A 07/10 [facility] Outpatient Encounter [id number] 07/17 [facility] [place] [facility] HC PRO PHONE CALL 11-20 MIN [id number] Diagnos is: ICD-10- CM M54.50 Low back pain, unspeci fied GABI PEREZ A 07/23 [facility] HC PRO PHONE CALL 11-20 MIN [id number] Diagnos is: ICD-10- CM M25.562 Pain in left knee MARYSTA CY L 07/23 [facility] Outpatient Encounter [id number] JESUS HERNANDEZ CY L 07/23 [facility] Outpatient Encounter 82736-2.65 [id number] 07/25 [facility] HC PRO PHONE CALL 21-30 MIN 67422-9.65 [id number] 4 Diagnos is: ICD-10- CM M25.562 Pain in left knee JESUS HERNANDEZ CY L 07/28 [facility] PT EDUCATION NOC INDIVID [id number] [id number] 8 Diagnos is: ICD-10- CM I63.9 Cerebra l infarct ion, unspeci fied THOMPSON EPPERSON M 07/29 [facility] PROGRAM INTAKE ASSESSMENT [id number] [id number] 6 Diagnos is: ICD-10- CM M25.562 Pain in left knee MANDORCA,L FAISAL L 08/01 [facility] Outpatient Encounter [id number] [id number] 1 08/04 [facility] Outpatient Encounter [id number] 4 08/18 [facility] Outpatient Encounter [id number] 2 ABENA,RE NEE D 08/20 [facility] HC PRO PHONE CALL 11-20 MIN 52720-6 [id number] 2 Diagnos is: ICD-10- CM M54.50 Low back pain, unspeci fied LASHA NOGUERA A L 08/20 [facility] Outpatient Encounter [id number] EM PETIT L 08/25 [facility] HC PRO PHONE CALL 21-30 MIN [id number] 3 Diagnos is: ICD-10- CM I63.9 Cerebra l infarct ion, unspeci fied ANA,CAR A A 08/27 [facility] PROGRAM INTAKE ASSESSMENT 53917-7 [id number] Diagnos is: ICD-10- CM M06.9 Rheumat oid arthrit is, unspeci fied MANDORCA,Margarita FAISAL L 08/28 [facility] Outpatient Encounter [id number] 8 ABENARE NEE D 09/02 [facility] REMOVABLE PROSTHODON TIC PROC [id number] 2 Diagnos is: ICD-10- CM K08.409 Partial loss of teeth, unspeci fied cause, unspeci fied class DAE SO 09/02 [facility] HC PRO PHONE CALL 21-30 MIN 74749-2.65 [id number] 0 Diagnos is: ICD-10- CM M54.50 Low back pain, unspeci fied LASHA NOGUERA L 09/02 [facility] Outpatient Encounter 32228-3.65 [id number] 2 LASHA NOGUERA L 09/02 [facility] HC PRO PHONE CALL 5-10 MIN 35544-2.65 [id number] 6 Diagnos is: ICD-10- CM I63.9 Cerebra l infarct ion, unspeci fied ANACAR A A 09/17 [facility] Outpatient Encounter [id number] [id number] 09/17 [facility] HC PRO PHONE CALL 21-30 MIN 80528-7.65 [id number] 1 Diagnos is: ICD-10- CM I63.9 Cerebra l infarct ion, unspeci fied ANACAR A A 09/19 [facility] Outpatient Encounter [id number] [id number] TIFFANY IRVIN 09/22 [facility] REMOVABLE PROSTHODON TIC PROC [id number] [id number] 5 Diagnos is: ICD-10- CM K08.409 Partial loss of teeth, unspeci fied cause, unspeci fied class DAE SO 09/25 [facility] Outpatient Encounter 66969-7.65 [id number] 3 10/01 [facility] Outpatient Encounter [id number] [id number] MILDREDESTHER CARTERVICKY Abdiel 10/02 [facility] Outpatient Encounter [id number] 10/07 [facility] Outpatient Encounter [id number] [id number] Diagnos is: ICD-10- CM Z00.00 Encntr for general adult medical exam w/o abnorma l finding s ELIJAH STAUFFER BY R 10/07 [facility] REMOVABLE PROSTHODON TIC PROC [id number] Diagnos is: ICD-10- CM K08.409 Partial loss of teeth, unspeci fied cause, unspeci fied class DAE SO 10/07 [facility] Outpatient Encounter [id number]. [id number] 10/07 [facility] Outpatient Encounter 27547-2. [id number] 10/07 [facility] Outpatient Encounter [id number] [id number] 10/09 [facility] HC PRO PHONE CALL 21-30 MIN [id number] [id number] 9 Diagnos is: ICD-10- CM I63.9 Cerebra l infarct ion, unspeci fied ANA,CAR A A 10/20 [facility] REMOVABLE PROSTHODON TIC PROC [id number] 9 Diagnos is: ICD-10- CM K08.409 Partial loss of teeth, unspeci fied cause, unspeci fied class DAE SO 10/28 [facility] Outpatient Encounter [id number] [id number] ELIJAH STAUFFER BY Sana 11/04 [facility] OFFICE O/P NEW LOW 30 MIN [id number] [id number] 7 Diagnos is: ICD-10- CM R21 Rash and other nonspec ific skin eruptio n TATA LUU I A 11/06 [facility] Outpatient Encounter [id number] [id number] ELIJAH STAUFFER BY Sana 11/06 [facility] Outpatient Encounter [id number] [id number] 11/06 [facility] Outpatient Encounter [id number] [id number] 11/06 [facility] Outpatient Encounter [id number] [id number] Diagnos is: ICD-10- CM Z04.89 Encount er for examina tion and observa tion for oth reasons CARLOS MINOR IEMargarita P 11/06 [facility] REMOVABLE PROSTHODON TIC PROC [id number] [id number] 9 Diagnos is: ICD-10- CM K08.409 Partial loss of teeth, unspeci fied cause, unspeci fied class DAE SO 11/17 [facility] Outpatient Encounter [id number] [id number] 8 EM PETIT 11/18 [facility] Outpatient Encounter [id number] [id number] 2 EM PETIT L 11/20 [facility] DENTURE RELN CMPLT MAXIL 60119-6.65 [id number] 8 Diagnos is: ICD-10- CM K08.409 Partial loss of teeth, unspeci fied cause, unspeci fied class DAE SO 12/01 [facility] THERAPEUTI C EXERCISES [id number] [id number] Diagnos is: ICD-10- CM M25.512 Pain in left shoulde r CAROLINA HOWELL 12/04 [facility] Outpatient Encounter [id number]. [id number] SHERRY GONGORA 12/04 [facility] Outpatient Encounter [id number] [id number] EM PETIT GURINDER L 12/04 [facility] OFFICE O/P NEW MOD 45 MIN [id number] [id number] 7 Diagnos is: ICD-10- CM I48.0 Paroxys mal atrial fibrill atLOUISE Lee 12/09 [facility] Outpatient Encounter 45711-6.65 [id number] EM PETIT GURINDER Avila 12/10 [facility] Outpatient Encounter 48412-7.65 [id number] 0 PETIT,EV GURINDER L 12/10 [facility] Outpatient Encounter [id number] [id number] 1 12/11 [facility] REMOVABLE PROSTHODON TIC PROC [id number] [id number] 3 Diagnos is: ICD-10- CM K08.409 Partial loss of teeth, unspeci fied cause, unspeci fied class DAE SO 12/19 [facility] Outpatient Encounter [id number] [id number] 12/22 [facility] Outpatient Encounter [id number] [id number] 12/23 [facility] Outpatient Encounter [id number] [id number] 12/29 [facility] Outpatient Encounter [id number] [id number] 8 12/29 [facility] PT EDUCATION NOC INDIVID 61050-2.65 [id number] 2 Diagnos is: ICD-10- CM I63.9 Cerebra l infarct ion, unspeci fied GABI PEREZ A A 01/13 [facility] OFFICE O/P EST SF 10 MIN [id number] [id number] 4 Diagnos is: ICD-10- CM R21 Rash and other nonspec ific skin eruptio n Lucia HONEYCUTT E 01/15 [facility] REMOVABLE PROSTHODON TIC PROC [id number] [id number] 0 Diagnos is: ICD-10- CM K08.409 Partial loss of teeth, unspeci fied cause, unspeci fied class DAE SO 01/16 [facility] Outpatient Encounter [id number] [id number] 3 EM PETIT 01/16 [facility] Outpatient Encounter [id number] [id number] EM PETIT 01/20 [facility] Outpatient Encounter [id number] [id number] 0 01/23 [facility] Outpatient Encounter [id number] 02/03 [facility] REMOVABLE PROSTHODON TIC PROC [id number] 7 Diagnos is: ICD-10- CM K08.409 Partial loss of teeth, unspeci fied cause, unspeci fied class DAE SO 02/09 [facility] Outpatient Encounter 09144-5. [id number] TIFFANY IRVIN 02/20 [facility] THERAPEUTI C EXERCISES [id number] [id number] Diagnos is: ICD-10- CM M25.569 Pain in unspeci fied knee MINA SHER 02/27 [facility] Outpatient Encounter [id number] [id number] 1 03/11 [facility] Outpatient Encounter 34540-7.65 [id number] 03/11 [facility] Outpatient Encounter 83534-4.65 [id number] 0 03/16 [facility] Outpatient Encounter [id number] [id number] 03/16 [facility] Outpatient Encounter [id number] [id number] SAMSON RAMIREZ DAVID M 03/30 [facility] Outpatient Encounter [id number] [id number] GABI PEREZ A 04/01 [facility] Outpatient Encounter 68727-3.65 [id number] 1 04/03 [facility] Outpatient Encounter [id number] [id number] 04/13 [facility] PT EDUCATION NOC INDIVID 78085-4.65 [id number] 9 Diagnos is: ICD-10- CM I63.9 Cerebra l infarct ion, unspeci fied GABI PEREZ A 04/27 [facility] Outpatient Encounter [id number] [id number] 0 EM PETIT L 04/29 [facility] Outpatient Encounter [id number] [id number] 2 05/25 [facility] Outpatient Encounter 77899-9.65 [id number] 06/10 [facility] Outpatient Encounter [id number] [id number] 06/16 [facility] Outpatient Encounter [id number] [id number] 2 06/16 [facility] Outpatient Encounter [id number] [id number] 07/14 [facility] Outpatient Encounter 32723-2.65 [id number] 2 07/22 [facility] Outpatient Encounter [id number] [id number] 4 08[facility]06 [facility] 78653-8.65 [id number] 4 Diagnos is: ICD-10- CM I63.9 Cerebra l infarct ion, unspeci fied ANACAR A A 09/01 [facility] Outpatient Encounter [id number] [id number] 4 09/01 [facility] Outpatient Encounter [id number] [id number] 09/01 [facility] OFFICE O/P EST HI 40 MIN 35724-2.65 [id number] 7 Diagnos is: ICD-10- CM I48.0 Paroxys mal atrial fibrill atLOUISE Lee 09/01 [facility] Outpatient Encounter [id number] [id number] 4 09/10 [facility] Outpatient Encounter [id number] [id number] 09/10 [facility] Outpatient Encounter [id number] [id number] 09/28 [facility] Outpatient Encounter [id number] [id number] 3 Jc [facility]REVINO 10[facility]07 [facility] Outpatient Encounter [id number] [id number] 7 ALBARO TIFFANY 10/09 [facility] Outpatient Encounter [id number] [id number] 7 Mabel GONZALEZ 10/14 [facility] Outpatient Encounter [id number] [id number] 10/14 [facility] Outpatient Encounter [id number] [id number] 2 10/15 [facility] Outpatient Encounter [id number] [id number] Jc TREVINO R 10/20 [facility] Outpatient Encounter [id number] [id number] 0 ALBAROIRMADY 10/20 [facility] PH1 ASSMT&MGMT NQHP 5-10 [id number] [id number] 8 Diagnos is: ICD-10- CM I63.9 Cerebra l infarct ion, unspeci fied ANACAR A A 10/23 [facility] Outpatient Encounter [id number] [id number] 1 11/03 [facility] Outpatient Encounter [id number] [id number] 11/04 [facility] Outpatient Encounter [id number] [id number] 5 11/26 [facility] Social History Combined list of available smoking, tobacco, and other social history from Department of Defense and Veterans Affairs facilities. Social History Type Response Date Comment Sourc e Tobacco smoking status NHIS VA-TOBACCO NEVER USED 10/08/2023 [facility] History of tobacco use VA-TOBACCO NEVER USED 03/30/2022 [facility] History of tobacco use VA-TOBACCO NEVER USED 05/26/2020 [facility] History of tobacco use VA-TOBACCO NEVER USED 07/30/2018 [facility] History of tobacco use LIFETIME NON-USER OF TOBACCO 08/01/2016 [facility] History of tobacco use LIFETIME NON-USER OF TOBACCO 07/25/2015 [facility] This section is an empty social history section. DoD Plan of Care List of future care activities from Department of Veterans Affairs facilities. Additional future care activities may be listed in the Assessment and Plan section. Date/Time Care Activity Care Activity Detail Facili ty 03/02/2025 AMBULATORY - MEDICINE AMBULATORY - MEDICI NE [facility] Advance Directives List of completed, amended, or rescinded Advance Directives on record at Department of Veterans Affairs facilities. An actual copy of the Directive is not included. Date Advance Directive Provider Source 12/08/2020 ADVANCE DIRECTIVE MARYCRUZ SANABRIA [facility]
--- OUTSIDE RECORDS SUMMARY | 2024-12-25 10:07 | XMS_ITS | Patient Health Record ---
Author Organization [facility] Address [address] [place] [address] Care Team Providers Care Portable Track Crew Chief Name Role Phone Miguel Clayton Unavailable [phone] Nan JUAREZ, Betzy Unavailable Unavailable Gabriel West Unavailable [phone] Allergies Allergen (clinical drug ingredient) Drug/Non Drug [...] Duration: [address] Gabriel West KENDAL: [id number] 04/21/2024 Active Atorvastatin Calcium 80 MG 1 [...] Once a day; Duration: 30 day(s) Active EnteraGam 5 GM Orally Activ e Finasteride 5 MG 1 tablet Orally Once a day; Duration: 30 day(s) Active metFORMIN HCl 1000 MG 1 tablet with a meal Orally Once a day Active Cyanocobalamin 100 MCG as directed Orally Active HYDROcodone-Acetaminoph en 7.5-325 MG 1 tablet as needed Orally every 6 hrs; Duration: 7 days Active Brimonidine Tartrate 0.2 % 1 drop into affected eye Ophthalmic every 8 hrs Active Problems Problem Type SNOMED Code ICD Code Onset Dates Problem Status W/U Status Risk Notes Problem Unilateral primary osteoarthritis, unspecified hip (M16.10) Active confirmed Problem Osteoarthritis of knee (635277495) Bilateral primary osteoarthritis of knee (M17.0) Active confirmed Problem Localized, primary osteoarthritis of the shoulder region (903212623) Primary osteoarthritis, 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) Active confirmed Problem Pain of right knee region (finding) (038821483289017) Pain in right knee (M25.561) Active confirmed Problem Solitary sacroiliitis (078510334) Sacroiliitis, not elsewhere classified (M46.1) Active confirmed Problem Lumbosacral spondylosis without myelopathy (95590793) Other spondylosis with radiculopathy, lumbar region (M47.26) Active confirmed Problem Cervical spondylosis without myelopathy (792491131) Spondylosis without myelopathy or radiculopathy, cervical region (M47.812) Active confirmed Problem Lumbosacral spondylosis without myelopathy (27996966) Spondylosis without myelopathy or radiculopathy, lumbar region (M47.816) Active confirmed Problem Lumbosacral spondylosis without myelopathy (disorder) (97875917) Spondylosis without myelopathy or radiculopathy, lumbosacral region (M47.817) Active confirmed Problem Lumbar radiculopathy (640740039) Radiculopathy, lumbar region (M54.16) Active confirmed Vital Signs Heart Rate 85 /min 04/20/2024 Temperature 98.2 degrees Fahrenheit 04/20/2024 Blood pressure diastolic 87 mm Hg 04/20/2024 Oximetry 97 04/20/2024 Height 74 in 04/20/2024 Blood pressure systolic 167 mm Hg 04/20/2024 Weight 173 lbs 04/20/2024 BMI 22.21 04/20/2024 Procedures Procedure Date Ordered Date Performed Result Body Sit e *ASC LUMBAR FACET/MBB JOINT INJ BILATERAL#1 53289 1st level, 89051 2nd level 04/20/2024 N/A Encounters Encounter Location Date Provider Diagnosis -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/ PHYS PAIN [address] [facility] [address] [place] [address] 04/20/2024 Miguel Clayton Spondylosis without myelopathy or radiculopathy, lumbar region M47.816 and Bilateral primary osteoarthritis of knee M17.0 -[facility] [address] [facility] [address] [place] [address] 04/21/2024 Gabriel West -103 [facility] [address] [facility] [address] [place] [address] 04/23/2024 Miguel Clayton Assessments Encounter Date Diagnosis (ICD Code) Assessment Notes Treatment Notes Treatment Clinical Notes Section Notes 02/05/2024 Spondylosis without myelopathy or radiculopathy, cervical region (ICD-10 - M47.812) 02/05/2024 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 [place] 03/09/2024 Other Reviewed [place] PDMP on 02/04/24 at 10:05 am and patient was not found in the system. [place] 04/20/2024 Other Reviewed [place] PDMP on 04/20/24 at 7:14 am and patient was not found in the system. [place] unable to check [place] Given 7 days to start [place]-Acet 5-325 on 01/2024 Plan Of Treatment Pending Test Test Name Order Date X ray : Knee, right 07/18/2022 TENS unit 04/03/2017 MRI : Lumbar Spine With/Without Contrast 09/13/2017 MRI : Lumbar Spine With/Without Contrast 07/18/2016 x-ray : bilateral shoulders 01/07/2017 *ASC LUMBAR FACET/MBB JOINT INJ BILATERAL#1 50300 1st level, 57502 2nd level 04/20/2024 U[facility] Flex 23 #[id number] Insurance Providers Payer Name Payer Address Payer Phone Subscriber Number Group Number Insured Name Patient Relationship to Insured Coverage Start Date Coverage End Date [place] [address] [address] [place] [address] [phone] [id number] Jesse Hunter Self - patient is the insured 5 [id number] Federal Plan [address] [place] [phone] [id number] Jesse Hunter Self - patient is the insured [facility] for Life - T4L [address] [place] [address] [id number] Jesse Hunter Self - patient is the insured [place] [address] [address] [place] [address] [phone] [id number] Jesse Hunter Self - patient is the insured Medical (General) History Medical History History ICD Code high blood pressure diabetes Rheumatoid Arthritis Prostate problems/urinary incontinence/b ladder infections Surgical History Surgery Date(Month/Year) knee surgery 2012 back surgery 2010 Hospitalization History Reason Date(Month/Year)
--- OUTSIDE RECORDS SUMMARY | 2024-12-25 10:07 | XMS_ITS | Patient Health Record ---
Author Organization [email or web address] Address [address] [place] [address] [place] [address] Care Team Providers Care Fur Cleaner Name Role Phone Victorina JUAREZ, Raymundo Primary Care Provider Unavailable Reason For Referral No Information Plan Of Treatment No Information Insurance Providers Payer Name Payer Address Payer Phone Subscriber Number Group Number Insured Name Patient Relationship to Insured Coverage Start Date Coverage End Date Medicare E2 [address] [address] [place] [address] [id number] Jesse Hunter Self - patient is the insured 5 [facility] E2 [address] [place] [address] [id number] Jesse Hunter Self - patient is the insured 4
--- OUTSIDE RECORDS SUMMARY | 2024-12-25 10:08 | XMS_ITS | Encounter Summary ---
Author Organization [employer] Address 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 Gender Identity Not on file Sexual Orientation [...] INTERFACE SYSTEM Comment: Lab test performed by: [email or web address] [address] [place] [address] [address] BANG CHRIS MD 08/30/2006 11:4 4 AM CDT us Preston Patel MD CHEMISTRY ORDERABLES Edited Performing Organization Address [facility] Phone Number INTERFACE SYSTEM Refer to clinic/hospital department * HEPATITIS B SURFACE ANTIGEN (08/30/2006 11:44 AM CDT) HEPATITIS B SURFACE AG NON-REACTI VE NON-REACT AMISH INTERFACE SYSTEM Comment: Lab test performed by: [facility] [id number] [place] [address] [address] BANG CHRIS MD 08/30/2006 11:4 4 AM CDT us Preston Patel MD CHEMISTRY ORDERABLES Edited Performing Organization Address [facility] Phone Number INTERFACE SYSTEM Refer to clinic/hospital department * HIV RAPID SCREEN (08/30/2006 11:44 AM CDT) RAPID HIV SCREEN Nonreactive Nonreactive INTERFACE SYSTEM Comment:Results called to Zachary keene at 08/30/2006 12:04 PM and read back verified. 08/30/2006 11:4 4 AM CDT us Preston Patel MD CHEMISTRY ORDERABLES Edited Performing Organization Address [facility] Phone Number INTERFACE SYSTEM Refer to clinic/hospital department documented in this encounter Visit Diagnoses Not on filedocumented in this encounter Additional Health Concerns Infection Onset Date Last Indicated Resolved Time MRSA Comment:02/2014 L knee, 04/2014 nares, left knee and blood 02/17/2014 02/17/2014 documented as of this encounter Care Teams Field Research Assistant Relationship Specialty Start Date End Date Maxim Martínez MD PCP - General 01/14/18 documented as of this encounter
--- OUTSIDE RECORDS SUMMARY | 2024-12-25 10:08 | XMS_ITS | Encounter Summary ---
Author Organization [employer] Address 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
--- OUTSIDE RECORDS SUMMARY | 2024-12-25 10:08 | XMS_ITS | Clinical Summary ---
Author Organization [facility] Address [address] [place] [address] Care Team Providers Care Wheel Worker Name Role Phone Unavailable Primary Care Provider Unavailabl e Allergies Active Allergy Reactions Criticality Noted Date Comments Aspirin GI Intolerance 12/02/2018 Banana Itching Medium 02/07/2014 Latex Itching Medium 02/07/2014 Metoclopramide Other (See Comments) High 11/13/2019 Ataxia and other parkinson like symptoms Penicillins Hives,Rash Medium 08/08/2010 Sulfa Antibiotics Swelling,Rash Medium 08/08/2010 Medications pancrelipase, Hku-Qgdr-Nwaq, (PANCREAZE) 88657 units capsule Take 3 capsules by mouth [...] Comments Blood Pressure 139/77 05/05/2020 8:25 AM ROBOTIC MACHINE TENDER PRODUCTION Pulse 93 05/05/2020 8:25 AM ROBOTIC MACHINE TENDER PRODUCTION Temperature 36.2 C (97.1 F) 05/05/2020 8:25 AM ROBOTIC MACHINE TENDER PRODUCTION Respiratory Rate 18 05/05/2020 8:25 AM ROBOTIC MACHINE TENDER PRODUCTION Oxygen Saturation 97% 05/05/2020 8:25 AM ROBOTIC MACHINE TENDER PRODUCTION Inhaled Oxygen Concentration - - Weight 78.2 kg (172 lb 6.4 oz) 05/01/2020 6:56 A M ROBOTIC MACHINE TENDER PRODUCTION Height 188 cm (6' 2) 04/24/2020 5:13 PM ROBOTIC MACHINE TENDER PRODUCTION Body Mass Index 22.13 04/24/2020 5:13 PM ROBOTIC MACHINE TENDER PRODUCTION Plan of Treatment Health Maintenance Due Date Last Done Comments CT Colonography 1950 Colonoscopy 1950 Colorectal Cancer Screening 1950 FIT-DNA (Cologuard) 1950 FIT 1950 FOBT 1950 Sigmoidoscopy 1950 Annual Visit Topic 1951 Hepatitis C Screening 08/30/1967 DTaP/Tdap/Td Vaccines (1 - Tdap) 1968 Pneumococcal Vaccine: 65+ Ye ars (1 of 2 - PCV) 08/30/1999 HIB Vaccines Aged Out No longer eligi ble based on patient's age to complete this topic HPV Vaccines Aged Out No longer eligi ble based on patient's age to complete this topic Hepatitis A Vaccines Aged Out No long er eligible based on patient's age to complete this topic Hepatitis B Vaccines Aged Out No long er eligible based on patient's age to complete this topic IPV Vaccines Aged Out No longer eligi ble based on patient's age to complete this topic Meningococcal Vaccine Aged Out No karen jarod eligible based on patient's age to complete this topic Advance Directives * Full Resuscitation (Latest Code [...]
--- OUTSIDE RECORDS SUMMARY | 2024-12-25 10:08 | XMS_ITS | Patient Health Record ---
Author Organization [facility] Address [address] [place] [phone] Care Team Providers Care Starbucks Barista Name Role Phone Victorina JUAREZ, Raymundo Primary Care Provider Unavailable Davian Cruz Unavailable [phone] ALLERGIES Allergen (clinical drug ingredient) Drug/Non Drug [...] Unknown 03/03/2015 Refused Pneumococcal Unknown 03/03/2015 Refused PROBLEMS Problem Type ICD Code Onset Dates Problem Status W/U Status Risk SNOMED Code Notes Problem Essential (primary) hypertension (I10) Active confirmed Essential hypertension (12305082) Problem Acute kidney failure, unspecified (N17.9) Active confirmed Acute renal failure syndrome (44698382) Has resolved now PLAN OF TREATMENT No Information Insurance Providers Payer Name Payer Address Payer Phone Subscriber Number Group Number Insured Name Patient Relationship to Insured Coverage Start Date Coverage End Date Medicare Part B [address] [place] [address] [phone] [id number] Jesse Hunter Self - patient is the insured [facility] [address] [place] [phone] [id number] Jesse Hunter Self - patient is the insured [employer] [address] [place] [address] [phone] [id number] Jesse Hunter Self - patient is the [...]
--- OUTSIDE RECORDS SUMMARY | 2024-12-25 10:08 | XMS_ITS | Encounter Summary ---
Author Organization [facility] Address 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
--- OUTSIDE RECORDS SUMMARY | 2024-12-25 10:08 | XMS_ITS ---
Author Organization [facility] Address [address] [place] [address] Care Team Providers Care Director Of Search Engine Marketing Name Role Phone Miguel Clayton Unavailable [phone] Betzy Montana MD Unavailable Unavailable Allergies Allergen (clinical drug ingredient) Drug/Non Drug Allergy documented on EMR Reaction Allergy Type Onset Date Status penicillin (uncoded) Unknown Allergy Active Substance with sulfonamide structure and antibacterial mechanism of action (substance) sulfa (uncoded) Unknown Allergy Active REASON FOR VISIT Lumbar MBB @ [facility] No Sedation Medications Medication SIG (Take, [...] Duration: [address] Gabriel West KENDAL: [id number] 04/21/2024 Active Folic Acid 1 MG 1 [...] Active Encounters Encounter Location Date Provider Diagnosis -[facility] [address] [place] [id number] 05/04/2024 Miguel Clayton Plan Of Treatment No Information Progress Notes * Jesse HUNTER EDOB:1950 (74 yo M)Acc No.[id number]:05/04/2024 Progress Note Patient: Jesse RED Provider: Abdiel Clayton MD :1950 A ge:73 Y S ex:Male Date:05/04/2024 Address:[address] [place] [address], [facility], [id number] Subjective: * Chief Complaints: * 1 . Lumbar MBB @ [facility] No Sedation. * ROS: A complete [...] Notes to Pharmacist: Dr. Gabriel West KENDAL: [id number], Medication List reviewed and reconciled with the patient * Allergies: S ulfa, Penicillin. Objective: * Vitals: Assessment: Plan: * Treatment: * Images: Billing Information: * Visit Code: * Procedure Codes: * Electronic signature of Miguel Clayton MD on 12/25/2024 at 10:08 AM CDT Sign off status: Pending * Provider: Abdiel Clayton MD Date: 07/05/2023 Generated for Chan recio/Camilo/Ariadna on: 0 12/25/2024 10:08 AM CDT
--- OUTSIDE RECORDS SUMMARY | 2024-12-25 10:08 | XMS_ITS | Encounter Summary ---
Author Organization [facility] Address 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
--- OUTSIDE RECORDS SUMMARY | 2024-12-25 10:08 | XMS_ITS | Clinical Summary ---
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
--- OUTSIDE RECORDS SUMMARY | 2024-12-25 10:08 | XMS_ITS | Clinical Summary ---
Author Organization [facility] Address [address] [place] [place] [address] Care Team Providers Care Revenue Stamp Clerk Name Role Phone Betzy Montana MD Unavailable [phone] Dora Peraza MD Unavailable [phone] Gabriel Camarena MD Unavailable [phone] Wyatt Ang MD Unavailable [phone] Skyler Noriega DPM Unavailable Selwyn Acharya MD Unavailable Unavailable Shemar Lawler MD Unavailable [phone] Nelda Grove MD Unavailable [phone] Timi Weinberg MD Primary Care Provider Afsaneh Kang [facility] Unavailable Source Comments [facility]non-owned Affiliates and Associated Physician Practices is amultiple site organization consisting of ambulatory clinics and hospital sitesin [place], [place], [place] and [place]. This disclosure is being madepursuant to the Care Everywhere program and may not contain all information available regarding this patient. Last updated 18.[facility] Allergies Active Allergy Reactions Criticality Noted Date [...] 9 mL 5 10/05/19 23 Active Pancreaze 82894-92909 units capsule TAKE 3 CAPSULES BY MOUTH [...] MCG/ACT nasal sprayIndication s:Eustachian tube disorder, bilateral [place] 2 (two) sprays into each nostril once [...] (05/07/2023): 07/2022 right knee x-rays with advanced xxzw-si-dnaz medial compartment joint space narrowing. May not be a surgical candidate for TKA. Presence of Watchman left atrial appendage closu re device 11/18/2022 Primary localized osteoarthritis of pelvic regio n and thigh 08/02/2022 Sacroiliitis, not elsewhere classified 3 Pain in right knee 08/02/2022 Lumbosacral spondylosis without myelopathy 08/02 Gastrointestinal hemorrhage, unspecified gastrointestinal hemorrhage type 07/29/2022 Cataracts, bilateral 07/29/2022 GERD (gastroesophageal reflux disease) 3 Benign prostatic hyperplasia 07/02/2022 Syncope and collapse 05/08/2022 Urinary retention 12/30/2021 Left hemiparesis 12/28/2021 Overview (12/28/2021): 11/02/21 Gabriel Davis MD Neurology Seizure 12/28/2021 Overview (12/28/2021): 10/06/21 Heena Yadav, FULL STACK ENGINEER-PRODUCT SUPPORT REP Nurse Practitioner Family Bilateral non-palpable testicles 10/05/2021 [...] (nonsustained ventricular tachycardia) 12/11 Overview (12/21/2020): 08/09/2020 [facility] Janine Awad Pradeep, MD Parkinsonism, unspecified Parkinsonism type 12/11 Overview (12/21/2020): 11/07/2019 [facility] Lindsay Awad Danuta M, MD Calcification of [...] 04/26/2014 Other specified diseases of gallbladder 02/13/20 Spinal stenosis of lumbar re gion without [...] pain 01/21/2014 08/11/2020 Pain in both hands 1 Encounters Date Type Department Care Team Description 09/28/2024 Patient Outreach [facility] - Care Coordination [address] [place] [phone] Nieves Smith, ZAY Outreach Preventive Care from Last 3 Months Immunizations Immunization Administration Dates Next Due COVID MODERNA 12+ yr 50mcg/0.5mL 02/04/2024 COVID PFIZER BIVALENT 12Y+ 30mcg/0.3ML 2 Covid Pfizer primary Monoval ent 12+ yr [...] Recorded Patient Health Questionnaire-2 Score 0 02/04/2024 [facility] of Occupat ional Health - Occupational Stress [...] on file Legal Sex Male 1:20 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 Medical Devices Implanted Type Area Behavior Therapist Device Identifier Shelf Expiration Date Model / Serial / Lot Ent Kit Implanted:Qty : 1 on 09/23/2020 by Nelda Grove MD at [facility] Right: Abdomen 01/07/2023 [id number] / / [id number] Oclr Cv 24mm Dlv Sys Watchman Flx Strl Implanted:Qty : 1 on 02/28/2022 by Jeffrey Camarena MD at [facility] [employer] [id number] 10/29/2024 [id number] / NA / [id number] Explanted Type Area Behavior Therapist Device Identifier Shelf Expiration Date Model / Serial / Lot Oclr Cv 20mm Dlv Sys Watchman Flx Strl Explanted:Qty: 1 on 02/28/2022 at [facility] [employer] [id number] 08/22/2024 [id number] / NA / [id number] Procedures Procedure Name Priority Date/Time Associated Diagnosis [...] UTH [facility] FM Microalbumin 30 [facility] Creatinine POCT 200 [facility] Microalbumin/Crea tinine Ratio <30 [facility] Urine URINE / Unknown 02/04/2024 2 :30 PM CDT Afsaneh Kang FULL STACK ENGINEER-PRODUCT SUPPORT REP LAB - POINT OF CA RE ORDERABLES Final Result [facility] [address] [facility] [address] [phone] * (ABNORMAL) COMPREHENSIVE METABOLIC PANEL (01/31/2024 11:32 [...] 6:15 AM CDT [facility]formed at: [facility] [address] [place], [place] [id number] Roundhouse Worker: Dae Freeman PhD, Phone: [phone] us Timi Weinberg MD LAB - CHEMISTRY ORDERABLES Final Result [facility] INSURANCE BILL [address] [place] [address] * HEMOGLOBIN A1C - POINT OF CARE (HgbA1C) (08/19/2023 1:30 PM CDT) Pathologist [facility] Hemoglobin A1c POCT 7.0 % [facility] Expiration Date 11/08/23 [facility] Lot # [id number] [facility] QC Verified Yes Yes [facility] FM Blood BLOOD SPECIMEN / Unknown 08/19/2023 1:30 PM CDT us Afsaneh Kang FULL STACK ENGINEER-PRODUCT SUPPORT REP LAB - POINT OF CA RE ORDERABLES Final Result [facility] [address] [phone] * DIABETES EYE EXAM (11/25/2020) us Scanned [...] Resulting Agency Comment Lab Testing performed at: [facility] [address] [facility] [id number] Eboni Watkins FULL STACK ENGINEER-PRODUCT SUPPORT REP LAB - CHEMISTRY ORD ERABLES Final Result [facility] INSURANCE BILL [address] [place] [address] * COLONOSCOPY (12/16/2012) 12/16/2012 Narrative 12/16/2012 Ordered by an unspecified provider. us Scanned Document SCANNING ONLY Final Result from Last 3 Months or Most Recently Relevant to Health Maintenance [place] [address] [facility] MEDICARE [facility] [place] [address] Advance Directives * Full Code (Latest Code [...] 11:16 AM 03/01/2022 3:37 PM Care Teams Revenue Stamp Clerk Relationship Specialty Start Date End Date Timi Weinberg MD [address] [place] [phone] PCP - General Internal Medicine 05/20/23 Afsaneh Kang APRN-PRODUCT SUPPORT REP [address] [place] [id number] PCP - Attributed-MSSP 01/12/24 Betzy Montana MD [address] [facility] [address] [place] [address] Rheumatology 11/24/19 [place] [address] [place], [place] [phone] Orthopedic Surgery 03/14/20 Gabriel Camarena MD [address] [place], [place] [phone] Cardiovascular Disease 08/04/20 Wyatt Ang MD [address] [facility] [address] [place] [address] Cardiology 08/04/20 Skyler Noriega DPM [address] [place] [address] Podiatry 08/16/20 Selwyn Acharya MD [address] [place] [address] Endocrinology 08/16/20 Shemar Lawler MD [address] [facility] [address] [place] [address] Physician Gastroenterology 11/09/20 Nelda Grove MD [address] [place] [address] Physician Urology 01/06/21
--- OUTSIDE RECORDS SUMMARY | 2024-12-25 10:08 | XMS_ITS | Encounter Summary ---
Author Organization [facility] Address [address] [place] [address] Care Team Providers Care Welding Machine Operator Submerged Arc Name Role Phone Maxim Martínez MD Primary Care Provider Encounter Details Date Type Department Care Team (Latest Contact Info) Description 03/23/2003 Outpatient Historical HIS [facility] YOLANDA Goode, Jason Colon MD [address] [place] [address] [place] [address] ELEV TRANSAMINASE/LDH (Primary Dx) Social History Tobacco Use Types Packs/Day Years Used Date Smoking Tobacco: Never Assessed Sex and Gender Information Value Date Recorded Sex Assigned at Not on file Legal Sex Male 5:21 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
--- OUTSIDE RECORDS SUMMARY | 2024-12-25 10:08 | XMS_ITS ---
Author Organization [facility] Address [address] [address] [place] [address] Care Team Providers Care Information Technology Intern Name Role Phone Miguel Clayton Unavailable [phone] Betzy Montana MD Unavailable Unavailable Allergies Allergen (clinical drug ingredient) Drug/Non Drug Allergy documented on EMR Reaction Allergy Type Onset Date Status penicillin (uncoded) Unknown Allergy Active Substance with sulfonamide structure and antibacterial mechanism of action (substance) sulfa (uncoded) Unknown Allergy Active REASON FOR VISIT Meds with DRAWING IN MACHINE TENDER HELPER Medications Medication SIG (Take, Route, Frequency, Duration) [...] Duration: [address] 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 Lives in [place] Plan Of Treatment Medication Medication Name Sig [...] * Jesse HUNTER EDOB:1950 (74 yo M)Acc No.[id number]:03/09/2024 Progress Notes Patient: Jesse RED Provider: Abdiel Clayton MD Resource:Leia Valdez :1950 A ge:73 Y S ex:Male Date:03/09/2024 Address:[address] [place] [address] , [facility] [place] [id number] Subjective: * Chief Complaints: * 1 . Meds with DRAWING IN MACHINE TENDER HELPER. * HPI: P ain Disability Index: Pain [...] as well, such of that of a eceo-iw-hxcd parent or volunteer. 1 0-Worst Disability, S [...] . S iblings: alive. Abdiel mckinney: alive. N on-Contributory. * [...] Notes to Pharmacist: Dr. Miguel Clayton KENDAL: [id number], Medication List reviewed and reconciled with the [...] past. 3. O thers Clinical Notes: Reviewed [place] PDMP on 02/04/24 at 10:05 am and patient was not found in the system. Lives in [place] * Images: Billing Information: * Visit Code: * Procedure Codes: * Electronic signature of Miguel Clayton MD on 12/25/2024 at 10:07 AM CDT Sign off status: Pending * Provider: Abdiel Clayton MD Date: Generated for [facility] almita/Camilo/Rejismitting on: 0 12/25/2024 10:07 AM CDT History and Physical Notes * [...] as well, such of that of a xnce-pk-ecep parent or volunteer.: 10-Worst Disability Sexual Behavior: [...]
--- OUTSIDE RECORDS SUMMARY | 2024-12-25 10:08 | XMS_ITS | Encounter Summary ---
Author Organization [facility] Address [address] [place] [address] Care Team Providers Care General Worker Name Role Phone Maxim Martínez MD Primary Care Provider Encounter Details Date Type Department Care Team (Latest Contact Info) Description 01/28/2003 Outpatient Historical HIS [facility] YOLANDA Goode, Jason Colon MD [address] [place] [address] MELENA, BLOOD IN STOOL (Primary Dx) Social History Tobacco Use Types Packs/Day Years Used Date Smoking Tobacco: Never Assessed Sex and Gender Information Value Date Recorded Sex Assigned at Not on file Legal Sex Male 5:21 AM ARTS AND HUMANITIES COUNCIL DIRECTOR Gender Identity Not on file Sexual Orientation [...] documented as of this encounter Care Teams General Worker Relationship Specialty Start Date End Date Maxim Martínez MD PCP - General 01/14/18 documented as of this encounter
--- OUTSIDE RECORDS SUMMARY | 2024-12-25 10:08 | XMS_ITS | Encounter Summary ---
Author Organization [facility] Address 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
--- OUTSIDE RECORDS SUMMARY | 2024-12-25 11:20 | XMS_ITS | Encounter Summary ---
Author Organization [facility] Address [address] [place] [address] Care Team Providers Care Gut Snatcher Name Role Phone Maxim Martínez MD Primary Care Provider Maxim Martínez MD Unavailable [phone] Eboni Watkins Unavailable [phone] Cheyanne Allan MD Unavailable [phone] Betzy Montana MD Unavailable [phone] Manisha Cao RN Unavailable Dora Peraza MD Unavailable [phone] Encounter Details Date Type Department Care Team (Late st Contact Info) Description 04/22/2020 2:09 PM CLERICAL AND OFFICE SUPPORT WORKERS Hospital Encounter [address] [address] Laureen Roberts MD [facility] Rehabilitation [address] [place] [phone] [place]ena [place] [address] [facility] [place] [address] [employer] Social History Tobacco [...] Recorded Patient Health Questionnaire-2 Score 0 02/04/2024 [facility] [place] of Occupat ional Health - Occupational Stress [...] place to sleep or slept in a skilled nursing (including now)? No 02/26/2023 Sex and Gender Information Value Date Recorded Sex Assigned at Not on file Legal Sex Male 1:20 PM CLERICAL AND OFFICE SUPPORT WORKERS Gender Identity Not on file Sexual Orientation [...] Assessment Author No 11/10/2019 6:30 AM CDT Augutsa Barboza, RN * Does person have serious [...] COVID-19 Confirmed 04/13/2020 04/13/2020 0 4:34 AM CLERICAL AND OFFICE SUPPORT WORKERS C DIFF 04/22/2020 04/22/2020 09/23/2020 8:37 AM CDT COVID-19 Confirmed Comment:Added from external infection. 08/01/2020 12/23/2020 8:11 AM C DT COVID-19 Under Investigation 03/02/2022 03/02/2022 03/02/2022 3:05 PM CDT CDIFF Under Investigation 07/29/2022 07/29/2022 7:20 AM CDT documented as of this encounter Care Teams Gut Snatcher Relationship Specialty Start Date End Date Maxim Martínez MD PCP - General 02/11/20 10/16/20 Eboni Watkins APRN-GATE CUTTER [address] [place] [address] PCP - Attributed-MSSP 11/11/19 11/09/20 Maxim Martínez MD Family Medicine 02/11/20 08/03/20 [place] [address] [facility] [address] [place] [address] Urology 03/20/16 01/17/21 Betzy Montana MD [address] [place] [address] [address] [place], [place] [id number] Rheumatology 11/24/19 Mnaisha Cao RN Stuffed Casing TierDiving Coach 02/10/20 09/22/23 [place] [address] [place], [place] [id number] Orthopedic Surgery 03/14/20 documented as of this encounter
--- OUTSIDE RECORDS SUMMARY | 2024-12-25 11:21 | XMS_ITS | Encounter Summary ---
Author Organization [facility] Address 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
--- OUTSIDE RECORDS SUMMARY | 2024-12-25 11:21 | XMS_ITS | Encounter Summary ---
Author Organization [facility] Address 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
--- OUTSIDE RECORDS SUMMARY | 2024-12-25 11:21 | XMS_ITS | Encounter Summary ---
Author Organization [employer] Address 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 Gender Identity Not on file Sexual Orientation [...] INTERFACE SYSTEM Comment: Lab test performed by: [facility] [address] [place] [address] [address] BANG CHRIS MD 08/30/2006 11:4 4 AM CDT us Preston Patel MD CHEMISTRY ORDERABLES Edited Performing Organization Address [facility] Phone Number INTERFACE SYSTEM Refer to clinic/hospital department * HEPATITIS B SURFACE ANTIGEN (08/30/2006 11:44 AM CDT) HEPATITIS B SURFACE AG NON-REACTI VE NON-REACT AMISH INTERFACE SYSTEM Comment: Lab test performed by: [facility] [address] [place] [address] DR BANG CHRIS MD 08/30/2006 11:4 4 AM CDT us Preston Patel MD CHEMISTRY ORDERABLES Edited Performing Organization Address [facility] Phone Number INTERFACE SYSTEM Refer to clinic/hospital department * HIV RAPID SCREEN (08/30/2006 11:44 AM CDT) RAPID HIV SCREEN Nonreactive Nonreactive INTERFACE SYSTEM Comment:Results called to Zachary keene at 08/30/2006 12:04 PM and read back verified. 08/30/2006 11:4 4 AM CDT us Preston Patel MD CHEMISTRY ORDERABLES Edited Performing Organization Address [facility] Phone Number INTERFACE SYSTEM Refer to clinic/hospital department documented in this encounter Visit Diagnoses Not on filedocumented in this encounter Additional Health Concerns Infection Onset Date Last Indicated Resolved Time MRSA Comment:02/2014 L knee, 04/2014 nares, left knee and blood 02/17/2014 02/17/2014 documented as of this encounter Care Teams Research Home Economist Relationship Specialty Start Date End Date Maxim Martínez MD PCP - General 01/14/18 documented as of this encounter
--- OUTSIDE RECORDS SUMMARY | 2024-12-25 11:21 | XMS_ITS | Clinical Summary ---
Author Organization [facility] Address [address] [facility] [place] [address] Care Team Providers Care Human Resources Operations Manager Name Role Phone Betzy Montana MD Unavailable [phone] Dora Peraza MD Unavailable [phone] Gabriel Camarena MD Unavailable [phone] Wyatt Ang MD Unavailable [phone] Skyler Noriega DPM Unavailable Selwyn Acharya MD Unavailable Unavailable Shemar Lawler MD Unavailable Nelda Grove MD Unavailable [phone] Timi Weinberg MD Primary Care Provider [phone] Afsaneh Kang [facility] Unavailable Source Comments [facility],non-owned Affiliates and Associated Physician Practices is amultiple site organization consisting of ambulatory clinics and hospital sitesin [place], [place], [place] and [place]. This disclosure is being madepursuant to the Care Everywhere program and may not contain all information available regarding this patient. Last updated 18.[facility] Allergies Active Allergy Reactions Criticality Noted Date [...] 9 mL 5 10/05/19 23 Active Pancreaze 83236-17964 units capsule TAKE 3 CAPSULES BY MOUTH [...] MCG/ACT nasal sprayIndication s:Eustachian tube disorder, bilateral [place] 2 (two) sprays into each nostril once [...] (05/07/2023): 07/2022 right knee x-rays with advanced hyoc-hn-lcsn medial compartment joint space narrowing. May not [...] Seizure 12/28/2021 Overview (12/28/2021): 10/06/21 Heena Yadav, PERINATAL NURSE-FREIGHT COORDINATOR Nurse Practitioner Family Bilateral non-palpable testicles 10/05/2021 [...] (nonsustained ventricular tachycardia) 12/11 Overview (12/21/2020): 08/09/2020 [facility] Janine Awad Pradeep, MD Parkinsonism, unspecified Parkinsonism type 12/11 Overview (12/21/2020): 11/07/2019 [facility] Lindsay Awad Danuta M, MD Calcification of [...] Department Care Team Description 09/28/2024 Patient Outreach [facility] - Care Coordination [address] [place] [phone] Nieves Smith, ZAY Outreach Preventive Care from [...] Recorded Patient Health Questionnaire-2 Score 0 02/04/2024 [facility] [place] of Occupat ional Health - Occupational Stress [...] place to sleep or slept in a long-term (including now)? 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 Medical Devices Implanted Type Area Security Public Safety Officer Device Identifier Shelf Expiration Date Model / Serial / Lot Ent Kit Implanted:Qty : 1 on 09/23/2020 by Nelda Grove MD at [facility] Right: Abdomen 01/07/2023 [id number] / / [id number] Oclr Cv 24mm Dlv Sys Watchman Flx Strl Implanted:Qty : 1 on 02/28/2022 by Jeffrey Camarena MD at [facility] [employer] [id number] 10/29/2024 [id number] / NA / [id number] Explanted Type Area Security Public Safety Officer Device Identifier Shelf Expiration Date Model / Serial / Lot Oclr Cv 20mm Dlv Sys Watchman Flx Strl Explanted:Qty: 1 on 02/28/2022 at [facility] [employer] [id number] 08/22/2024 [id number] / NA / [id number] Procedures Procedure Name Priority Date/Time Associated Diagnosis [...] [facility] FM Creatinine POCT [address] [facility] Microalbumin/Crea tinine Ratio <[address] [facility] FM Urine URINE / Unknown 02/04/2024 2 :30 PM CDT Afsaneh Kang PERINATAL NURSE-FREIGHT COORDINATOR LAB - POINT OF CA RE ORDERABLES Final Result [facility] [address] [phone] * (ABNORMAL) COMPREHENSIVE METABOLIC PANEL (01/31/2024 11:32 [...] 6:15 AM CDT [facility]formed at: [facility] [address] [place], [place] [id number] Document Review Specialist: Dae Freeman PhD, Phone: [phone] us Timi Weinberg MD LAB - CHEMISTRY ORDERABLES Final Result [facility] INSURANCE BILL [address] [place] [address] * HEMOGLOBIN A1C - POINT OF CARE (HgbA1C) (08/19/2023 1:30 PM CDT) Pathologist [facility] Hemoglobin A1c POCT 7.0 % [facility] FM Expiration Date 11/08/23 [facility] Lot # [id number] [facility] QC Verified Yes Yes [facility] FM Blood BLOOD SPECIMEN / Unknown 08/19/2023 1:30 PM CDT us Afsaneh Kang PERINATAL NURSE-FREIGHT COORDINATOR LAB - POINT OF CA RE ORDERABLES Final Result [facility] FM [address] [phone] * DIABETES EYE EXAM (11/25/2020) us Scanned [...] Resulting Agency Comment Lab Testing performed at: [facility] [address] [facility] [id number] Eboni Watkins PERINATAL NURSE-FREIGHT COORDINATOR LAB - CHEMISTRY ORD ERABLES Final Result [facility] INSURANCE BILL [address] [place] [address] * COLONOSCOPY (12/16/2012) 12/16/2012 Narrative 12/16/2012 Ordered by an unspecified provider. us Scanned Document SCANNING ONLY Final Result from Last 3 Months or Most Recently Relevant to Health Maintenance [place] [address] [facility] MEDICARE [facility] [place] [address] Advance Directives * Full Code (Latest Code [...] 11:16 AM 03/01/2022 3:37 PM Care Teams Human Resources Operations Manager Relationship Specialty Start Date End Date Timi Weinberg MD [address] [place] [phone] PCP - General Internal Medicine 05/20/23 Afsaneh Kang APRN-FREIGHT COORDINATOR [address] [place] [phone] PCP - Attributed-MSSP 01/12/24 Betzy oMntana MD [address] [facility] [address] [place] [address] Rheumatology 11/24/19 [place] [address] [place], [place] [phone] Orthopedic Surgery 03/14/20 Gabriel Camarena MD [address] [place], [place] [id number] Cardiovascular Disease 08/04/20 Wyatt Ang MD [address] [facility] [address] [place] [phone] Cardiology 08/04/20 Skyler Noriega DPM [address] [place] [address] Podiatry 08/16/20 Selwyn Acharya MD [address] [place] [address] Endocrinology 08/16/20 Shemar Lawler MD [address] [facility] [address] [place] [address] Physician Gastroenterology 11/09/20 Nelda Grove MD [address] [place] [address] Physician Urology 01/06/21
--- OUTSIDE RECORDS SUMMARY | 2024-12-25 11:21 | XMS_ITS | Encounter Summary ---
Author Organization [facility] Address [address] [place] [address] Care Team Providers Care Foreign Language Instructor Name Role Phone Maxim Martínez MD Primary Care Provider Encounter Details Date Type Department Care Team (Late st Contact Info) Description 01/31/1998 Outpatient Historical [facility] Social History Tobacco Use Types Packs/Day Years Used Date Smoking Tobacco: Never Assessed Sex and Gender Information Value Date Recorded Sex Assigned at Not on file Legal Sex Male 5:21 AM MANAGER TRANSFER Gender Identity Not on file Sexual Orientation Not on file documented as of this encounter Plan of Treatment Not on file documented as of this encounter Visit Diagnoses Not on filedocumented in this encounter Additional Health Concerns Infection Onset Date Last Indicated Resolved Time 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
--- OUTSIDE RECORDS SUMMARY | 2024-12-25 11:21 | XMS_ITS | Continuity of Care Document ---
Author Name [facility] Organization [facility] Care Team Providers Care Cleaning Team Member Name Role Phone [facility] Unavailable Unavailable Problems Combined list of problems from Department of Defense and [facility] Affairs facilities. It does not include entries that were removed or entered in error. Problem Status Onset Date Problem Type Date of Resolution Comments Source Atrial fibrillation Active Condition [facility] Benign essential hypertension Active Condition [facility] Benign prostatic hyperplasia Active Condition [facility] Bunion Active Condition [facility] Cerebral infarction Active Condition [facility] Cyst Active Condition [facility] Gastroesophageal reflux disease Active Condition [facility] Hyperlipidemia Active Condition [facility] Knee pain (SNOMED CT [id number]) Active Condition [facility] Osteoarthritis of lumbar spine Active Condition [facility] Osteoarthritis of shoulder Active Condition [facility] Peripheral nerve disease Active Condition [facility] Rheumatoid arthritis Active Condition [facility] Seizure Active Condition [facility] Type 2 diabetes mellitus Active Condition [facility] Clostridium difficile colitis Inactive Condition 04/01/2022 [facility] DIAPHRAGMATIC HERNIA Inactive Condition 10/10/2023 [facility] OSTEOARTHROS NOS-UNSPEC Inactive Condition 10/10/2023 [facility] PEPTIC ULCER NOS Inactive Condition 10/10/2023 [facility] ROUTINE MEDICAL EXAM Inactive Condition 04/01/2022 [facility] Diagnosis: ICD-10-CM I63.9 Cerebral infarction, unspecified Active Diagnosis [facility] Diagnosis: ICD-10-CM I48.0 Paroxysmal atrial fibrillation Active Diagnosis [facility] Diagnosis: ICD-10-CM M25.569 Pain in unspecified knee Active Diagnosis [facility] JOHN Hood [facility] Diagnosis: ICD-10-CM K08.409 Partial loss of teeth, unspecified cause, unspecified class Active Diagnosis [facility] Diagnosis: ICD-10-CM R21 Rash and other nonspecific skin eruption Active Diagnosis [facility] Diagnosis: ICD-10-CM M25.512 Pain in left shoulder Active Diagnosis [facility] Diagnosis: ICD-10-CM Z04.89 Encounter for examination and observation for oth reasons Active Diagnosis [facility] Diagnosis: ICD-10-CM Z00.00 Encntr for general adult medical exam w/o abnormal findings Active Diagnosis [facility] [facility] Diagnosis: ICD-10-CM M54.50 Low back pain, unspecified Active Diagnosis [facility] Diagnosis: ICD-10-CM M06.9 Rheumatoid arthritis, unspecified Active Diagnosis [facility] Diagnosis: ICD-10-CM M25.562 Pain in left knee Active Diagnosis [facility] Medications Combined list of outpatient medications from Department of Defense and [facility] facilities.Medications provided include 1) outpatient medications from the last 15 months, and 2) patient-reported medications. Medication Details Route Status Patient Instructions Prescription Expires Prescription Number Last Dispense Date Ordering Provider Order Date Order Qty Source AMLODIPINE BESYLATE 2.5MG TAB TAKE ONE TABLET BY MOUTH ONCE A DAY ORAL ACTIVE LETITIA STAUFFER BRIGHTY R 2022 [facility] AMYLASE 24,000UNIT/ LIPASE 5,000UNIT/P ROTEASE 17,000UNIT CAP,EC TAKE 3 CAPSULES BY MOUTH THREE TIMES A DAY BEFORE MEALS ORAL ACTIVE LETITIA STAUFFER NEREYDA R 2021 [facility] APIXABAN 5MG TAB TAKE ONE TABLET BY MOUTH TWICE A DAY ORAL ACTIVE LETITIA STAUFFER LBY R 2022 [facility] ATORVASTATI N CA 40MG TAB TAKE ONE-HALF TABLET BY MOUTH EVERY EVENING ORAL ACTIVE YOKASTA BOOKER MD 2019 [facility] BETHANECHOL CL 25MG TAB TAKE TWO TABLETS BY MOUTH THREE TIMES A DAY ORAL ACTIVE LETITIA STAUFFER R 2021 [facility] CHLORHEXIDI NE GLUCONATE 4% LIQUID,TOP APPLY MODERATE AMOUNT TO AFFECTED AREA(S) DIRECTED (TOPICAL USE ONLY) AVOID CONTACT WITH EYES. CHIARA TRINIDAD INUED BY PROVIDE R 12/07/2023 [id number] SILKE RENAE MM 2023 120 [facility] DIVISIO N CLOPIDOGREL BISULFATE 75MG TAB TAKE ONE TABLET BY MOUTH ONCE A DAY ORAL ACTIVE LETITIA STAUFFER R 2022 [facility] DIAZEPAM 5MG TAB TAKE ONE TABLET BY MOUTH ONE-TIME FOR ANXIETY AVOID TAKING WITH GRAPEFRU IT JUICE. PLEASE TAKE 30-60 MINUTES PRIOR TO MRI. ORAL 02/20/2024 [id number] 4 LETITIA STAUFFER R 2023 1 [facility] DIVIO N FINASTERIDE 5MG TAB TAKE ONE TABLET BY MOUTH ONCE A DAY ORAL ACTIVE LETITIA STAUFFER R 2021 [facility] HYDROCODONE 7.5MG/ACETA MINOPHEN 325MG TAB TAKE ONE TABLET BY MOUTH EVERY 6 HOURS NEEDED ORAL ACTIVE YOKASTA BOOKER MD 2017 [facility] INSULIN,ASP ART,HUMAN 100 UNT/ML INJ INJECT 2 UNITS UNDER THE SKIN THREE TIMES A DAY BEFORE MEALS SUBCUT ANEOUS ACTIVE LETITIA STAUFFER R 2021 [facility] LATANOPROST 0.005% SOLN,OPH INSTILL 1 DROP IN BOTH EYES EVERY EVENING OPHTHA LMIC ACTIVE YOKASTA BOOKER MD 2017 [facility] LEVETIRACET AM 500MG TAB TAKE TWO TABLETS BY MOUTH TWICE A DAY ORAL ACTIVE LETITIA STAUFFER R 2022 [facility] MAGNESIUM OXIDE 400MG TAB TAKE ONE TABLET BY MOUTH ONCE A DAY ORAL ACTIVE LETITIA STAUFFER R 2022 [facility] METFORMIN HCL 1000MG/SAXA GLIPTIN 2.5MG 24 HR TAB,SA TAKE TWO TABLETS BY MOUTH ONCE A DAY ORAL ACTIVE LETITIA STAUFFER LBY R 2022 [facility] METHYLPREDN ISOLONE (methylpred nisolone), 4 MG, TAB DS PK, ORAL, Maginatics, 21 ea. DOSE-PACK Active [id number] 2023 21 [facility] PANTOPRAZOL E NA 40MG TAB,EC TAKE ONE TABLET BY MOUTH EVERY MORNING ORAL ACTIVE YOKASTA BOOKER MD 2015 [facility] PREGABALIN 75MG CAP,ORAL TAKE 1 CAPSULE BY MOUTH AT BEDTIME ORAL ACTIVE EH,LETITIA LBY R 2021 [facility] SOTALOL TAB TAKE BY MOUTH TWICE A DAY ORAL ACTIVE STAUFFERLETITIAY R 2021 [facility] TAMSULOSIN HCL 0.4MG CAP TAKE 1 CAPSULE BY MOUTH EVERY EVENING ORAL ACTIVE YOKASTA BOOKER MD 2018 [facility] Allergies, Adverse Reactions, Alerts Combined list of allergies from [facility] and Veterans Affairs facilities. It does not include entries that were removed or entered in error. Substance Category Reaction Severity Reaction type Status Date Reported Comments Source METOCLOPRAMID E Drug allergy (disorder) Renal failure syndrome active 3 [facility] PENICILLIN Propensity to adverse reactions to drug (finding) active 7 [facility] PENICILLINS Drug allergy (disorder) active 7 [facility] REGLAN Propensity to adverse reactions to drug (finding) Renal failure syndrome active 3 [facility] Propensity to adverse reactions to drug (finding) active 7 [facility] Immunizations Combined list of available immunizations from the Department of [facility] and [facility] Affairs facilities. Immunization Series Date Given Administered By Site Reaction Lot Number CVX Code Drug Manager Trust Status Comments Source COVID-19 (MODERNA), MRNA, LNP-S, PF, 50 MCG/0.5 ML (AGES 12+ YEARS) 2 2023 312 complet ed HISTORICA L INFORMATI ON - FROM OTHER [facility] INFLUENZA, ADJUVANTED, TRIVALENT, PF 6 2023 168 complet ed HISTORICA L INFORMATI ON - FROM OTHER [facility], [facility] N ZOSTER RECOMBINANT 2 2022 RACHEL WOODRUFF RIGHT DELTO ID [id number] 187 complet ed [facility] ZOSTER RECOMBINANT 2022 KELVIN LEVY RIGHT DELTO ID [id number] 187 complet ed [facility] INFLUENZA, UNSPECIFIED FORMULATION 2021 88 complet ed HISTORICA L INFORMATI ON - SOURCE UNSPECIFI [facility] DIVIO N COVID-19 (BMEYE), MRNA, LNP-S, BIVALENT, PF, 30 MCG/0.3 ML DOSE 1 2021 300 complet ed HISTORICA L INFORMATI ON - FROM OTHER [facility], [facility] N INFLUENZA VACCINE, QUADRIVALENT, ADJUVANTED 5 2021 205 complet ed HISTORICA L INFORMATI ON - FROM OTHER [facility] N COVID-19 ([facility]), MRNA, LNP-S, PF, 30 MCG/0.3 ML DOSE, DAWN-SUCROSE (AGES 12+ YEARS) 4 2021 217 complet ed HISTORICA L INFORMATI ON - FROM OTHER [facility], [facility] N INFLUENZA VACCINE, QUADRIVALENT, ADJUVANTED 4 2020 205 complet ed HISTORICA L INFORMATI ON - FROM OTHER [facility] COVID-19 (BMEYE), MRNA, LNP-S, PF, 30 MCG/0.3 ML DOSE 3 2020 208 complet ed HISTORICA L INFORMATI ON - FROM OTHER [facility] N COVID-19 (BMEYE), MRNA, LNP-S, PF, 30 MCG/0.3 ML DOSE 2 03/26/ 2021 208 complet ed HISTORICA L INFORMATI ON - FROM OTHER REGISTRY, [facility] COVID-19 (PFIZER), MRNA, LNP-S, PF, 30 MCG/0.3 ML DOSE 1 2020 208 complet ed HISTORICA L INFORMATI ON - FROM OTHER REGISTRY, [facility] N INFLUENZA, UNSPECIFIED FORMULATION 2019 88 complet ed [facility] N INFLUENZA, RECOMBINANT, QUADRIVALENT, INJECTABLE, PRESERVATIVE FREE 3 2019 185 complet ed HISTORICA L INFORMATI ON - FROM OTHER REGISTRY, [facility] N HEP A-HEP B 1 2019 104 complet ed HISTORICA L INFORMATI ON - FROM OTHER REGISTRY, [facility] N TDAP 1 2019 115 complet ed HISTORICA L INFORMATI ON - FROM OTHER REGISTRY, [facility] INFLUENZA, HIGH DOSE SEASONAL 2 2018 135 complet ed HISTORICA L INFORMATI ON - FROM OTHER REGISTRY, [facility] N INFLUENZA, UNSPECIFIED FORMULATION 2018 88 complet ed [facility] N INFLUENZA, INJECTABLE, QUADRIVALENT, PRESERVATIVE FREE 1 2018 150 complet ed HISTORICA L INFORMATI ON - FROM OTHER REGISTRY, [facility] N INFLUENZA, UNSPECIFIED FORMULATION 2017 88 complet ed [facility] PNEUMOCOCCAL POLYSACCHARID E PPV23 2016 33 complet ed [facility] INFLUENZA, UNSPECIFIED FORMULATION 2016 88 complet ed ILLINOI S TDAP 1 2016 115 complet ed HISTORICA L INFORMATI ON - FROM OTHER REGISTRY, [facility] N PNEUMOCOCCAL CONJUGATE PCV 13 2016 133 complet ed by non pa pcp [facility] N INFLUENZA, UNSPECIFIED FORMULATION 2016 88 complet ed [facility] N INFLUENZA, HIGH DOSE SEASONAL 1 2015 135 complet ed HISTORICA L INFORMATI ON - FROM OTHER REGISTRY, [facility] DIVIO N PNEUMOCOCCAL CONJUGATE PCV 13 1 2015 133 complet ed HISTORICA L INFORMATI ON - FROM OTHER REGISTRY, [facility] DIVISIO N TDAP 2013 115 complet ed [facility] DIV[facility] N Results Combined list of recent [...] Nov 07, 2023 10:50 AM Reporting Lab: [address] [address] Performing Lab: [address] [address] [facility] BASIC METABOLIC PANEL UREA NITROGEN [MASS/VOLUM E] IN SERUM OR PLASMA 17.7 mg/dL 9.0 - 25.0 11/06 Specimen Type: PLASMA Comment: No hemolysis noted. Ordering Provider: CHRISSY RENAE MM Report Released Date/Time: Nov 07, 2023 10:50 AM Reporting Lab: [address] [address] Performing Lab: [address] [address] [facility] BASIC METABOLIC PANEL GLUCOSE [MASS/VOLUM E] IN SERUM OR PLASMA 136 mg/dL 72 - 99 11/06 H Specimen Type: PLASMA Comment: No hemolysis noted. Ordering Provider: CHRISSY RENAE MM Report Released Date/Time: Nov 07, 2023 10:50 AM Reporting Lab: [address] [address] Performing Lab: [address] [address] [facility] BASIC METABOLIC PANEL SODIUM [MOLES/VOLU ME] IN SERUM OR PLASMA 138 meq/L 136 - 145 11/06 Specimen Type: PLASMA Comment: No hemolysis noted. Ordering Provider: CHRISSY RENAE MM Report Released Date/Time: Nov 07, 2023 10:50 AM Reporting Lab: [facility] [address] [facility] [facility] [address] Performing Lab: [facility] [address] [place] [phone] [facility] BASIC METABOLIC PANEL POTASSIUM [MOLES/VOLU ME] IN SERUM OR PLASMA 3.5 meq/L 3.5 - 5 11/06 Specimen Type: PLASMA Comment: No hemolysis noted. Ordering Provider: CHRISSY RENAE MM Report Released Date/Time: Nov 07, 2023 10:50 AM Reporting Lab: [address] [address] Performing Lab: [address] [address] [facility] BASIC METABOLIC PANEL CHLORIDE [MOLES/VOLU ME] IN SERUM OR PLASMA 103 meq/L 98 - 107 11/06 Specimen Type: PLASMA Comment: No hemolysis noted. Ordering Provider: CHRISSY RENAE MM Report Released Date/Time: Nov 07, 2023 10:50 AM Reporting Lab: [address] [address] Performing Lab: [address] [address] [facility] BASIC METABOLIC PANEL CARBON DIOXIDE, TOTAL [MOLES/VOLU ME] IN SERUM OR PLASMA 25 meq/L 22 - 31 11/06 Specimen Type: PLASMA Comment: No hemolysis noted. Ordering Provider: CHRISSY RENAE MM Report Released Date/Time: Nov 07, 2023 10:50 AM Reporting Lab: [place] [address] [facility] [address] Performing Lab: [address] [address] [facility] BASIC METABOLIC PANEL CALCIUM [MASS/VOLUM E] IN SERUM OR PLASMA 10.2 mg/dL 8.4 - 10.4 11/06 Specimen Type: PLASMA Comment: No hemolysis noted. Ordering Provider: CHRISSY RENAE MM Report Released Date/Time: Nov 07, 2023 10:50 AM Reporting Lab: [place] [id number] Performing Lab: [place] [phone] BASIC METABOLIC PANEL GLOMERULAR FILTRATION RATE/1.73 SQ M.PREDICTED [VOLUME RATE/AREA] IN SERUM, PLASMA OR BLOOD BY CREATININE- BASED FORMULA (CKD-EPI 2020) 58.2 60 11/06 Specimen Type: PLASMA Comment: No hemolysis noted. Ordering Provider: CHRISSY RENAE MM Report Released Date/Time: Nov 07, 2023 10:50 AM Reporting Lab: [place] [phone] Performing Lab: [place] [phone] CBC LEUKOCYTES [#/VOLUME] IN BLOOD BY AUTOMATED COUNT 4.7 10*3/u L 3.6 - 11.2 11/06 Specimen Type: BLOOD No comment entered. Ordering Provider: CHRISSY RENAE MM Report Released Date/Time: Nov 07, 2023 10:50 AM Reporting Lab: [place] [phone] Performing Lab: [place] [phone] CBC ERYTHROCYTE S [#/VOLUME] IN BLOOD BY AUTOMATED COUNT 4.60 10*6/u L 4.10 - 5.70 11/06 Specimen Type: BLOOD No comment entered. Ordering Provider: CHRISSY RENAE MM Report Released Date/Time: Nov 07, 2023 10:50 AM Reporting Lab: [address] [address] Performing Lab: [address] [phone] [place] [address] CBC HEMOGLOBIN [MASS/VOLUM E] IN BLOOD 12.2 g/dL 13.1 - 16.8 11/06 L Specimen Type: BLOOD No comment entered. Ordering Provider: CHRISSY RENAE MM Report Released Date/Time: Nov 07, 2023 10:50 AM Reporting Lab: [address] [address] Performing Lab: [address] CBC HEMATOCRIT [VOLUME FRACTION] OF BLOOD 37.8 38.2 - 48.4 11/06 L Specimen Type: BLOOD No comment entered. Ordering Provider: CHRISSY RENAE MM Report Released Date/Time: Nov 07, 2023 10:50 AM Reporting Lab: [address] [address] Performing Lab: [address] [phone] [address] CBC MCV [ENTITIC VOLUME] BY AUTOMATED COUNT 82.2 fL 80.0 - 100.0 11/06 Specimen Type: BLOOD No comment entered. Ordering Provider: CHRISSY RENAE MM Report Released Date/Time: Nov 07, 2023 10:50 AM Reporting Lab: [address] [address] Performing Lab: [address] [address] [facility] CBC MCH [ENTITIC MASS] BY AUTOMATED COUNT 26.5 pg 27.0 - 34.0 11/06 L Specimen Type: BLOOD No comment entered. Ordering Provider: CHRISSY RENAE MM Report Released Date/Time: Nov 07, 2023 10:50 AM Reporting Lab: [address] [address] Performing Lab: [address] [address] [facility] CBC MCHC [MASS/VOLUM E] BY AUTOMATED COUNT 32.3 g/dL 33.0 - 36.0 11/06 L Specimen Type: BLOOD No comment entered. Ordering Provider: CHRISSY RENAE MM Report Released Date/Time: Nov 07, 2023 10:50 AM Reporting Lab: [address] [address] Performing Lab: [address] [address] [facility] CBC PLATELETS [#/VOLUME] IN BLOOD BY AUTOMATED COUNT 340 10*3/u L 150 - 400 11/06 Specimen Type: BLOOD No comment entered. Ordering Provider: CHRISSY RENAE MM Report Released Date/Time: Nov 07, 2023 10:50 AM Reporting Lab: [address] [address] Performing Lab: [address] [address] [facility] CBC PLATELET MEAN VOLUME [ENTITIC VOLUME] IN BLOOD BY AUTOMATED COUNT 8.6 fL 7.5 - 11.2 11/06 Specimen Type: BLOOD No comment entered. Ordering Provider: CHRISSY RENAE MM Report Released Date/Time: Nov 07, 2023 10:50 AM Reporting Lab: [address] [address] Performing Lab: [address] [address] [facility] CBC ERYTHROCYTE DISTRIBUTIO N WIDTH [RATIO] BY AUTOMATED COUNT 16.4 11.8 - 15.1 11/06 H Specimen Type: BLOOD No comment entered. Ordering Provider: CHRISSY RENAE MM Report Released Date/Time: Nov 07, 2023 10:50 AM Reporting Lab: [facility] [address] [facility] [address] Performing Lab: [facility] [address] [facility] [address] [facility] CBC LYMPHOCYTES /100 LEUKOCYTES IN BLOOD BY AUTOMATED COUNT 37 11/06 Specimen Type: BLOOD No comment entered. Ordering Provider: CHRISSY RENAE MM Report Released Date/Time: Nov 07, 2023 10:50 AM Reporting Lab: [facility] [address] [facility] [address] Performing Lab: [facility] [address] [facility] [facility] [address] [facility] CBC MONOCYTES/1 00 LEUKOCYTES IN BLOOD BY AUTOMATED COUNT 8 11/06 Specimen Type: BLOOD No comment entered. Ordering Provider: CHRISSY RENAE MM Report Released Date/Time: Nov 07, 2023 10:50 AM Reporting Lab: [facility] [address] [facility] [address] Performing Lab: [facility] [address] [facility] [address] [facility] CBC NEUTROPHILS /100 LEUKOCYTES IN BLOOD BY AUTOMATED COUNT 51 11/06 Specimen Type: BLOOD No comment entered. Ordering Provider: CHRISSY RENAE MM Report Released Date/Time: Nov 07, 2023 10:50 AM Reporting Lab: [facility] [address] [facility] [facility] [address] Performing Lab: [facility] [address] [facility] [address] [facility] CBC EOSINOPHILS /100 LEUKOCYTES IN BLOOD BY AUTOMATED COUNT 3 11/06 Specimen Type: BLOOD No comment entered. Ordering Provider: CHRISSY RENAE MM Report Released Date/Time: Nov 07, 2023 10:50 AM Reporting Lab: [facility] [address] [facility] [facility] [address] Performing Lab: [facility] [address] [facility] [facility] [address] [facility] CBC BASOPHILS/1 00 LEUKOCYTES IN BLOOD BY AUTOMATED COUNT 1 11/06 Specimen Type: BLOOD No comment entered. Ordering Provider: CHRISSY RENAE MM Report Released Date/Time: Nov 07, 2023 10:50 AM Reporting Lab: [place] [address] [address] [facility] [address] Performing Lab: [address] [address] [facility] CBC LYMPHOCYTES [#/VOLUME] IN BLOOD BY AUTOMATED COUNT 1.74 10*3/u L 0.77 - 4.50 11/06 Specimen Type: BLOOD No comment entered. Ordering Provider: CHRISSY RENAE MM Report Released Date/Time: Nov 07, 2023 10:50 AM Reporting Lab: [address] [address] Performing Lab: [place] [address] [address] [facility] [address] [facility] CBC MONOCYTES [#/VOLUME] IN BLOOD BY AUTOMATED COUNT 0.39 10*3/u L 0.19 - 0.80 11/06 Specimen Type: BLOOD No comment entered. Ordering Provider: CHRISSY RENAE MM Report Released Date/Time: Nov 07, 2023 10:50 AM Reporting Lab: [address] [address] Performing Lab: [address] [address] [facility] CBC NEUTROPHILS [#/VOLUME] IN BLOOD BY AUTOMATED COUNT 2.35 10*3/u L 2.10 - 8.00 11/06 Specimen Type: BLOOD No comment entered. Ordering Provider: CHRISSY RENAE MM Report Released Date/Time: Nov 07, 2023 10:50 AM Reporting Lab: [address] [address] Performing Lab: [address] [place] [address] [facility] CBC EOSINOPHILS [#/VOLUME] IN BLOOD BY AUTOMATED COUNT 0.12 10*3/u L 0.00 - 0.60 11/06 Specimen Type: BLOOD No comment entered. Ordering Provider: CHRISSY RENAE MM Report Released Date/Time: Nov 07, 2023 10:50 AM Reporting Lab: [address] [address] Performing Lab: [address] [address] [facility] CBC BASOPHILS [#/VOLUME] IN BLOOD BY AUTOMATED COUNT 0.04 10*3/u L 0.00 - 0.20 11/06 Specimen Type: BLOOD No comment entered. Ordering Provider: CHRISSY RENAE MM Report Released Date/Time: Nov 07, 2023 10:50 AM Reporting Lab: [address] [address] Performing Lab: [address] [address] [facility] Vital Signs Combined list of inpatient and outpatient Vital Signs from Department of Defense and Veterans Affairs, ranging from 12 months to all on record, depending upon the facility. Vital Sign Value Date Comments Source SYSTOLIC BLOOD PRESSURE 126 09/01/2024 15:01:00 [facility] DIASTOLIC BLOOD PRESSURE 79 09/01/2024 15:01:00 [facility] PULSE OXIMETRY 98 09/01/2024 15:01:00 [facility] WEIGHT 171.6 09/01/2024 15:01:00 [facility] BMI 22 kg/m2 09/01/2024 15:01:00 [facility] PAIN 8 09/01/2024 15:01:00 [facility] TEMPERATURE 97.5 09/01/2024 15:01:00 [facility] PULSE 76 09/01/2024 15:01:00 [facility] RESPIRATION 16 09/01/2024 15:01:00 [facility] SYSTOLIC BLOOD PRESSURE 132 01/16/2024 11:24:44 [facility] DIASTOLIC BLOOD PRESSURE 78 01/16/2024 11:24:44 [facility] PULSE OXIMETRY 97 01/16/2024 11:24:44 [facility] WEIGHT 176 01/16/2024 11:24:44 [facility] BMI 23 kg/m2 01/16/2024 11:24:44 [facility] PAIN 8 01/16/2024 11:24:44 [facility] HEIGHT 74 01/16/2024 11:24:44 [facility] TEMPERATURE 97.8 01/16/2024 11:24:44 [facility] PULSE 85 01/16/2024 11:24:44 [facility] RESPIRATION 18 01/16/2024 11:24:44 [facility] Encounters Combined list of: 1) Encounters from Department of Veterans Affairs facilities going backup to the last 18 months, not all VA inpatient encounters are included; 2) Encounters from the Department of Defense facilities going backup to 280 months. Location Location Details Encounter Type Encounter Number Reason For Visit Attending Provider ADM Date DC Date Status Disposition Source [facility] Outpatient Encounter [id number] 07/05 [facility] HC PRO PHONE CALL 5-10 MIN [id number] Diagnos is: ICD-10- CM M25.562 Pain in left knee ANACAR A A 07/10 [facility] Out[facility] Encounter [id number] 07/17 [facility] HC PRO PHONE CALL 11-20 MIN [id number] Diagnos is: ICD-10- CM M54.50 Low back pain, unspeci fied GABI PEREZ A 07/23 [facility] HC PRO PHONE CALL 11-20 MIN [id number] Diagnos is: ICD-10- CM M25.562 Pain in left knee MARYSTA CY L 07/23 [facility] Outpatient Encounter [id number] JESUS HERNANDEZ CY L 07/23 [facility] Outpatient Encounter [id number] 07/25 [facility] HC PRO PHONE CALL 21-30 MIN [id number] Diagnos is: ICD-10- CM M25.562 Pain in left knee JESUS HERNANDEZ CY L 07/28 [facility] PT EDUCATION NOC INDIVID [id number] [id number] Diagnos is: ICD-10- CM I63.9 Cerebra l infarct ion, unspeci fied THOMPSON EPPERSON M 07/29 [facility] PROGRAM INTAKE ASSESSMENT [id number] Diagnos is: ICD-10- CM M25.562 Pain in left knee MANDORCA,L FAISAL L 08/01 [facility] Outpatient Encounter [id number] [id number] 1 08/04 [facility] Outpatient Encounter [id number] 08/18 [facility] Outpatient Encounter [id number] ABENA,RE NEE D 08/20 [facility] HC PRO PHONE CALL 11-20 MIN [id number] 2 Diagnos is: ICD-10- CM M54.50 Low back pain, unspeci fied LASHA NOGUERA A L 08/20 [facility] Outpatient Encounter [id number] 4 EM PETIT L 08/25 [facility] HC PRO PHONE CALL 21-30 MIN [id number] [id number] 3 Diagnos is: ICD-10- CM I63.9 Cerebra l infarct ion, unspeci fied ANA,CAR A A 08/27 [facility] PROGRAM INTAKE ASSESSMENT [id number] Diagnos is: ICD-10- CM M06.9 Rheumat oid arthrit is, unspeci fied MANDORCA,Margarita FAISAL L 08/28 [facility] Outpatient Encounter [id number] ABENARE NEE D 09/02 [facility] REMOVABLE PROSTHODON TIC PROC [id number] 2 Diagnos is: ICD-10- CM K08.409 Partial loss of teeth, unspeci fied cause, unspeci fied class DAE SO 09/02 [facility] HC PRO PHONE CALL 21-30 MIN [id number] [id number] 0 Diagnos is: ICD-10- CM M54.50 Low back pain, unspeci fied LASHA NOGUERA L 09/02 [facility] Outpatient Encounter [id number] [id number] 2 LASHA NOGUERA L 09/02 [facility] HC PRO PHONE CALL 5-10 MIN [id number] [id number] 6 Diagnos is: ICD-10- CM I63.9 Cerebra l infarct ion, unspeci fied ANACAR A A 09/17 [facility] Outpatient Encounter [id number] 09/17 [facility] HC PRO PHONE CALL 21-30 MIN [id number] [id number] 1 Diagnos is: ICD-10- CM I63.9 Cerebra l infarct ion, unspeci fied ANACAR A A 09/19 [facility] Outpatient Encounter [id number] [id number] TIFFANY IRVIN 09/22 [facility] REMOVABLE PROSTHODON TIC PROC [id number] [id number] 5 Diagnos is: ICD-10- CM K08.409 Partial loss of teeth, unspeci fied cause, unspeci fied class DAE SO 09/25 [facility] Outpatient Encounter [id number] [id number] 3 10/01 [facility] Outpatient Encounter [id number] [id number] 5 MILDREDESTHER CARTERVICKY Abdiel 10/02 [facility] Outpatient Encounter [id number] 10/07 [facility] Outpatient Encounter [id number] [id number] Diagnos is: ICD-10- CM Z00.00 Encntr for general adult medical exam w/o abnorma l finding s ELIJAH STAUFFER BY R 10/07 [facility] REMOVABLE PROSTHODON TIC PROC [id number] 2 Diagnos is: ICD-10- CM K08.409 Partial loss of teeth, unspeci fied cause, unspeci fied class DAE SO 10/07 [facility] Outpatient Encounter [id number]. [id number] 10/07 [facility] Outpatient Encounter [id number]. [id number] 10/07 [facility] Outpatient Encounter [id number] [id number] 10/09 [facility] HC PRO PHONE CALL 21-30 MIN [id number] [id number] 9 Diagnos is: ICD-10- CM I63.9 Cerebra l infarct ion, unspeci fied ANA,CAR A A 10/20 [facility] REMOVABLE PROSTHODON TIC PROC [id number] 9 Diagnos is: ICD-10- CM K08.409 Partial loss of teeth, unspeci fied cause, unspeci fied class DAE OS 10/28 [facility] Outpatient Encounter [id number] [id number] ELIJAH STAUFFER BY Sana 11/04 [facility] OFFICE O/P NEW LOW 30 MIN [id number] [id number] 7 Diagnos is: ICD-10- CM R21 Rash and other nonspec ific skin eruptio n TATA LUU I A 11/06 [facility] Outpatient Encounter [id number] [id number] ELIJAH STAUFFER BY Sana 11/06 [facility] Outpatient Encounter [id number] [id number] 11/06 [facility] Outpatient Encounter [id number] [id number] 7 11/06 [facility] Outpatient Encounter [id number] [id number] 0 Diagnos is: ICD-10- CM Z04.89 Encount er for examina tion and observa tion for oth reasons CARLOS MINOR IEMargarita P 11/06 [facility] REMOVABLE PROSTHODON TIC PROC 74165-4.65 [id number] 9 Diagnos is: ICD-10- CM K08.409 Partial loss of teeth, unspeci fied cause, unspeci fied class DAE SO 11/17 [facility] Outpatient Encounter [id number] [id number] 8 EM PETIT 11/18 [facility] Outpatient Encounter [id number] [id number] 2 EM PETIT L 11/20 [facility] DENTURE RELN CMPLT MAXIL 23409-7.65 [id number] 8 Diagnos is: ICD-10- CM K08.409 Partial loss of teeth, unspeci fied cause, unspeci fied class DAE SO 12/01 [facility] THERAPEUTI C EXERCISES [id number] [id number] 0 Diagnos is: ICD-10- CM M25.512 Pain in left shoulde r CAROLINA HOWELL 12/04 [facility] Outpatient Encounter [id number]. [id number] SHERRY GONGORA 12/04 [facility] Outpatient Encounter [id number] [id number] EM PETIT GURINDER L 12/04 [facility] OFFICE O/P NEW MOD 45 MIN [id number] [id number] 7 Diagnos is: ICD-10- CM I48.0 Paroxys mal atrial fibrill atLOUISE Lee 12/09 [facility] Outpatient Encounter [id number] [id number] 3 EM PETIT GURINDER Avila 12/10 [facility] Outpatient Encounter [id number] [id number] 0 PETIT,EV GURINDER L 12/10 [facility] Outpatient Encounter [id number] [id number] 1 12/11 [facility] REMOVABLE PROSTHODON TIC PROC [id number] [id number] 3 Diagnos is: ICD-10- CM K08.409 Partial loss of teeth, unspeci fied cause, unspeci fied class DAE SO 12/19 [facility] Outpatient Encounter [id number] [id number] 12/22 [facility] Outpatient Encounter [id number] [id number] 12/23 [facility] Outpatient Encounter [id number] [id number] 12/29 [facility] Outpatient Encounter [id number] [id number] 12/29 [facility] PT EDUCATION NOC INDIVID [id number] [id number] 2 Diagnos is: ICD-10- CM I63.9 Cerebra l infarct ion, unspeci fied GABI PEREZ A A 01/13 [facility] OFFICE O/P EST SF 10 MIN [id number] [id number] 4 Diagnos is: ICD-10- CM R21 Rash and other nonspec ific skin eruptio n Lucia HONEYCUTT E 01/15 [facility] REMOVABLE PROSTHODON TIC PROC 13671-7.65 [id number] Diagnos is: ICD-10- CM K08.409 Partial loss of teeth, unspeci fied cause, unspeci fied class DAE SO 01/16 [facility] Outpatient Encounter [id number] [id number] 3 EM PETIT 01/[address] [facility] Outpatient Encounter [id number] [id number] EM PETIT 01/20 [facility] Outpatient Encounter [id number] [id number] 01/23 [facility] Outpatient Encounter [id number] 02/03 [facility] REMOVABLE PROSTHODON TIC PROC 87660-565 [id number] 7 Diagnos is: ICD-10- CM K08.409 Partial loss of teeth, unspeci fied cause, unspeci fied class DAE SO 02/09 [facility] Outpatient Encounter [id number]. [id number] TIFFANY IRVIN 02/20 [facility] THERAPEUTI C EXERCISES 44898-9.65 [id number] Diagnos is: ICD-10- CM M25.569 Pain in unspeci fied knee MINA SHER 02/27 [facility] Out[facility] Encounter [id number] [id number] 1 03/11 [facility] Outpatient Encounter [id number] [id number] 7 03/11 [facility] Outpatient Encounter [id number] [id number] 0 03/16 [facility] Outpatient Encounter [id number] [id number] 03/16 [facility] Outpatient Encounter [id number] [id number] 7 SAMSON RAMIREZ DAVID M 03/30 [facility] Outpatient Encounter [id number] [id number] 0 GABI PEREZ A 04/01 [facility] Outpatient Encounter [id number] [id number] 1 04/03 [facility] Outpatient Encounter [id number] [id number] 04/13 [facility] PT EDUCATION NOC INDIVID [id number] [id number] 9 Diagnos is: ICD-10- CM I63.9 Cerebra l infarct ion, unspeci fied GABI PEREZ A 04/27 [facility] Outpatient Encounter [id number] [id number] 0 EM PETIT L 04/29 [facility] Outpatient Encounter [id number] [id number] 05/25 [facility] Outpatient Encounter [id number] [id number] 06/10 [facility] Outpatient Encounter [id number] [id number] 9 06/16 [facility] Outpatient Encounter [id number] [id number] 2 06/16 [facility] Outpatient Encounter [id number] [id number] 07/14 [facility] Outpatient Encounter [id number] [id number] 2 07/22 [facility] Outpatient Encounter [id number] [id number] 4 08/06 [facility] [id number] [id number] 4 Diagnos is: ICD-10- CM I63.9 Cerebra l infarct ion, unspeci fied ANACAR A A 09/01 [facility] Outpatient Encounter [id number] [id number] 4 09/01 [facility] Outpatient Encounter [id number] [id number] 09/01 [facility] OFFICE O/P EST HI 40 MIN [id number] [id number] 7 Diagnos is: ICD-10- CM I48.0 Paroxys mal atrial fibrill atLOUISE Lee 09/01 [facility] Outpatient Encounter [id number] [id number] 4 09/10 [facility] Outpatient Encounter [id number] [id number] 09/10 [facility] Outpatient Encounter [id number] [id number] 09/28 [facility] Outpatient Encounter [id number] [id number] 3 Jc TREVINO 10/07 [facility] Outpatient Encounter [id number] [id number] ALBARO TIFFANY 10/09 [facility] Outpatient Encounter [id number] [id number] Mabel GONZALEZ 10/14 [facility] Outpatient Encounter [id number] [id number] 10/14 [facility] Outpatient Encounter [id number] [id number] 2 10/15 [facility] Outpatient Encounter [id number] [id number] Jc TREVINO R 10/20 [facility] Outpatient Encounter [id number] [id number] ALBAROIRMADY 10/20 [facility] PH1 ASSMT&MGMT NQHP 5-10 [id number] [id number] Diagnos is: ICD-10- CM I63.9 Cerebra l infarct ion, unspeci fied ANACAR A A 10/23 [facility] Outpatient Encounter [id number] [id number] 1 11/03 [facility] Outpatient Encounter [id number] [id number] 6 11/04 [facility] Outpatient Encounter [id number] [id number] 11/26 [facility] Social History Combined list of available smoking, tobacco, and other social history from Department of Defense and Veterans Affairs facilities. Social History Type Response Date Comment Sourc e Tobacco smoking status NHIS VA-TOBACCO NEVER USED 10/08/2023 [facility] History of tobacco use VA-TOBACCO NEVER USED 03/30/2022 [facility] History of tobacco use VA-TOBACCO NEVER USED 05/26/2020 [facility] History of tobacco use VA-TOBACCO NEVER USED 07/30/2018 [facility] History of tobacco use LIFETIME NON-USER OF TOBACCO 08/01/2016 [facility] History of tobacco use LIFETIME NON-USER OF TOBACCO 07/25/2015 [facility] This section is an empty social history section. DoD Plan of Care List of future care activities from Department of Veterans Affairs facilities. Additional future care activities may be listed in the Assessment and Plan section. Date/Time Care Activity Care Activity Detail Facili ty 03/02/2025 AMBULATORY - MEDICINE AMBULATORY - MEDICI NE [facility] Advance Directives List of completed, amended, or rescinded Advance Directives on record at Department of Veterans Affairs facilities. An actual copy of the Directive is not included. Date Advance Directive Provider Source 12/08/2020 ADVANCE DIRECTIVE MARYCRUZ SANABRIA [facility]
--- OUTSIDE RECORDS SUMMARY | 2024-12-25 11:21 | XMS_ITS | Encounter Summary ---
Author Organization [employer] Address 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
--- OUTSIDE RECORDS SUMMARY | 2024-12-25 11:21 | XMS_ITS | Clinical Summary ---
Author Organization [facility] Address [facility] [place] [address] Care Team Providers Care Granite Block Paver Name Role Phone Sheamr Hassan MD Primary Care Provider [phone] Allergies Active Allergy Reactions Criticality Noted Date Comments Aspirin Other (see comment) High 12/02/2018 Pt has had SEVERE GI bleeds multiple times when taking this med. Has had to have blood transfusions Banana Hives 02/07/2022 Celecoxib Dizziness,Unknown 02/08/2015 Latex Hives 02/07/2022 Erythromycin Rash Low 02/07/2022 Lisinopril Cough 02/07/2022 Metoclopramide Rash Low 02/07/2022 Heart beat irritable Meloxicam Swelling 02/07/2022 Back of tongue and difficulty urinating. Penicillins Swelling 02/07/2022 Back of tongue Infliximab Rash Low 02/07/2022 Sulfa Antibiotics Rash,Swelling Medium 08/08/2010 Medications amLODIPine (NORVASC) 5 MG tablet Take 1 tablet (5 mg total) by mouth daily. 2 Active atorvastatin (LIPITOR) 80 MG tablet Take 1 tablet (80 mg total) by mouth. 2 Active bethanechol (URECHOLINE) 10 MG tablet Take 2 tablets (20 mg total) by mouth 3 (three) times daily. 2 Active brimonidine (ALPHAGAN) 0.2 % ophthalmic solution Place 1 drop into both eyes 2 (two) times daily. 2 Active vitamin D3, cholecalcifero l, 1000 UNIT Tab tablet Take 2 tablets (2,000 Units total) by mouth daily. 2 Active finasteride (PROSCAR) 5 MG tablet Take 1 tablet (5 mg total) by mouth daily. 2 Active VIRT-KETAN 2.2-25-1 MG Tab Take 1 tablet by mouth daily. 2 Active HYDROcodone-ac etaminophen (NORCO) 10-325 MG tablet Take 1 tablet by mouth every other day as needed. 2 Active insulin aspart (NOVOLOG) 100 UNIT/ML injection (PEN) Inject 2 Units into the skin daily with breakfast. Active metFORMIN (GLUCOPHAGE) 1000 MG tablet Take 1 tablet (1,000 mg total) by mouth 2 (two) times daily with meals. 2 Active pancrelipase, Pze-Pjhd-Tiaq, (PANCREAZE) 81292-33849 units CAPSULE ENTERIC COATED PARTICLES capsule Take 3 capsules (31,500 units of lipase total) by mouth 3 times daily. 2 Active pantoprazole EC (PROTONIX) 40 MG tablet Take 1 tablet (40 mg total) by mouth daily. 2 Active tamsulosin (FLOMAX) 0.4 MG Cap Take 1 capsule (0.4 mg total) by mouth 2 (two) times daily. 2 Active sotalol (BETAPACE) 120 MG tablet Take 1 tablet (120 mg total) by mouth 2 (two) times daily. 2 Active SITagliptin (JANUVIA) 100 MG tablet Take 1 tablet (100 mg total) by mouth daily. 2 Active pregabalin (LYRICA) 100 MG capsule Take 1-2 capsules (100-200 mg total) by mouth 2 (two) times a day. 100 mg QAM; 200 mg HS 2 Active aspirin EC (ECOTRIN) 81 MG tablet Take 1 tablet (81 mg total) by mouth every other day. Active hydroxychloroq uine (PLAQUENIL) 200 MG tablet Take 1 tablet (200 mg total) by mouth 2 (two) times daily. Active levETIRAcetam (KEPPRA) 1000 MG tablet Take 1 tablet (1,000 mg total) by mouth 2 (two) times daily. 3 Active BD ECLIPSE SYRINGE 25G X 1 3 ML Misc see administration instructions. USE MONTHLY FOR VITAMIN-B12 INJECTIONS 3 Active pyridoxine (VITAMIN B-6) 50 MG Tab Take 1 tablet (50 mg total) by mouth daily. 2 Active magnesium oxide (MAG-OX) 400 MG tablet Take 1 tablet (400 mg total) by mouth daily. 3 Active cyanocobalamin (B-12) 1000 MCG/ML injection Inject 1 mL (1,000 mcg total) into the skin every 30 (thirty) days. 3 Active PLAVIX 75 MG tablet Take 1 tablet (75 mg total) by mouth daily. 3 Active Active Problems Problem Noted Date Diagnosed Date COVID-19 12/30/2022 Sepsis ([facility]) 12/28/2022 Family History Medical History Relation Comments CHF Mother Relation Status Comments Mother Social History Tobacco Use Types Packs/Day Years Used Date Smoking Tobacco: Never Smokeless Tobacco: Never Alcohol Use Standard Drinks/Week Comments Never 0 (1 standard drink = 0.6 oz pur e alcohol) Humiliation, Afraid, Rape, and Kick questionnair e Answer Date Recorded Within the last year, have y ou been afraid of your partner or ex-partner? No 12/28/2022 Within the last year, have y ou been humiliated or emotionally abused in other ways by your partner or ex-partner? No Within the last year, have y ou been kicked, hit, slapped, or otherwise physically hurt by your partner or ex-partner? No 12/28/2022 Within the last year, have y ou been raped or forced to have any kind of sexual activity by your partner or ex-partner? No 12/28/2022 Overall Financial Resource Strain (CARDIA) Answe r Date Recorded How hard is it for you to pa y for the very basics like food, housing, medical care, and heating? Not hard at all 12/28/2022 Hunger Vital Sign Answer Date Recorded Within the past 12 months, y ou worried that your food would run out before you got the money to buy more. Never true 12/29/19 23 Within the past 12 months, t he food you bought just didn't last and you didn't have money to get more. Never true 12/28/2022 PRAPARE - Transportation Answer Date Re corded In the past 12 months, has l ack of transportation kept you from medical appointments or from getting medications? No 12/11 In the past 12 months, has l ack of transportation kept you from meetings, work, or from getting things needed for daily living? No 12/28/2022 Housing Stability Vital Sign Answer Victorino e Recorded In the last 12 months, was t here a time when you were not able to pay the mortgage or rent on time? No 12/28/2022 In the last 12 months, how many places have you lived? 1 12/28/2022 In the last 12 months, was t here a time when you did not have a steady place to sleep or slept in a intermediate (including now)? No 12/28/2022 Sex and Gender Information Value Date Recorded Sex Assigned at Not on file Legal Sex Male 12:53 PM CDT Gender Identity Not on file Sexual Orientation Not on file Last Filed Vital Signs Vital Sign Reading Time Taken Comments Blood Pressure 123/63 01/01/2023 4:04 PM CDT Pulse 60 01/01/2023 4:04 PM CDT Temperature 36.4 C (97.5 F) 01/01/2023 4:04 PM CDT Respiratory Rate 18 01/01/2023 4:04 PM CDT Oxygen Saturation 99% 01/01/2023 4:04 PM CDT Inhaled Oxygen Concentration - - Weight 87 kg (191 lb 12.8 oz) 01/01/2023 3:42 AM CDT Height 188 cm (6' 2) 12/28/2022 12:24 PM CDT Body Mass Index 24.63 12/28/2022 12:24 PM CDT Plan of Treatment Health Maintenance Due Date Last Done Comments Colorectal Cancer Screening Colonoscopy (10 Years) 1950 Hepatitis C 08[birth year]30/1968 Annual Medicare Wellness Visit 2014 COVID-19 Vaccine ( season) 2024 03/06/2022, 11/17/2021, 01/12/2021, Additional history exists RSV Immunization or 60+ Years (1 - 1-dose 75+ series) 2024 DTaP, Tdap and Td Vaccines (4 - Td or Tdap) 01/21/2030 01/22/2020, 11/29/2016, 05/13/2013 Pneumococcal Vaccine: 50+ Years Completed 02/18/2017, 05/14/2016, 03/20/2016 Zoster Vaccines Completed 10/03/2022, 07/06/2022 Meningococcal B Vaccine Aged Out No l onger eligible based on patient's age to complete this topic Meningococcal Vaccine Aged Out No karen jarod eligible based on patient's age to complete this topic RSV Immunizations Under 20 Months Aged Out No longer eligible based on patient's age to complete this topic Insurance [address] [place], [place] [address] MEDICARE [facility] [employer] Advance Directives * Full Code (Latest Code Status on File) Date Activated Date Inactivated Comments 12/28/2022 4:47 PM 01/01/2023 7:48 PM Care Teams Granite Block Paver Relationship Specialty [place] [address] [place] [address] [address] PCP - General FAMILY PRACTICE 02/13/22
--- OUTSIDE RECORDS SUMMARY | 2024-12-25 11:21 | XMS_ITS | Clinical Summary ---
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
--- OUTSIDE RECORDS SUMMARY | 2024-12-25 11:21 | XMS_ITS | Encounter Summary ---
Author Organization [facility] Address 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
--- OUTSIDE RECORDS SUMMARY | 2024-12-25 11:21 | XMS_ITS | Clinical Summary ---
Author Organization [facility] Address [address] [place] [address] Care Team Providers Care Vinyl Hanger Name Role Phone Unavailable Primary Care Provider Unavailabl e Allergies Active Allergy Reactions Criticality Noted Date Comments Aspirin GI Intolerance 12/02/2018 Banana Itching Medium 02/07/2014 Latex Itching Medium 02/07/2014 Metoclopramide Other (See Comments) High 11/13/2019 Ataxia and other parkinson like symptoms Penicillins Hives,Rash Medium 08/08/2010 Sulfa Antibiotics Swelling,Rash Medium 08/08/2010 Medications pancrelipase, Heb-Lhax-Mlqg, (PANCREAZE) 90689 units capsule Take 3 capsules by mouth [...] Comments Blood Pressure 139/77 05/05/2020 8:25 AM BUILDING CARPENTER Pulse 93 05/05/2020 8:25 AM BUILDING CARPENTER Temperature 36.2 C (97.1 F) 05/05/2020 8:25 AM BUILDING CARPENTER Respiratory Rate 18 05/05/2020 8:25 AM BUILDING CARPENTER Oxygen Saturation 97% 05/05/2020 8:25 AM BUILDING CARPENTER Inhaled Oxygen Concentration - - Weight 78.2 kg (172 lb 6.4 oz) 05/01/2020 6:56 A M BUILDING CARPENTER Height 188 cm (6' 2) 04/24/2020 5:13 PM BUILDING CARPENTER Body Mass Index 22.13 04/24/2020 5:13 PM BUILDING CARPENTER Plan of Treatment Health Maintenance Due Date [...]
--- OUTSIDE RECORDS SUMMARY | 2024-12-25 11:21 | XMS_ITS | Encounter Summary ---
Author Organization [email or web address] Address 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
[2024-12-25] MEDS: traMADol HCL (*CRX) 25 MG TABLET PO (11:45)
[2024-12-25 11:46] VITALS: BP 131/85; PULSE 60; RESP 13; O2SAT 97
[2024-12-25] MEDS: ACETAMINOPHEN 500 MG TABLET 1000 MG PO (11:46)
--- NOTE | 2024-12-25 12:17 | ED.FALL ---
HPI - Fall General Chief Complaint: Fall Stated Complaint: fall Time Seen by Provider: 12/25/24 10:52 Source: patient Mode of arrival: ambulatory Limitations: no limitations History of Present Illness HPI Narrative: Patient is a 74-year-old male who presents the ED with report of a fall. Patient reports he lost his balance and fell backwards on Saturday. Landed on his bottom. Reports mechanical fall. Denies head injury or LOC, dizziness. Reports pain to his tailbone, right knee. He is able to ambulate, but has pain with this. Denies neck or back pain, numbness. Has not taken anything for pain. Patient is on Plavix. Related Data Home Medications ?Medication ?Instructions ?Recorded ?Confirmed ?Last Taken ?Type amlodipine 5 mg tablet 5 mg PO DAILY 01/01/23 01/01/23 Unknown History aspirin 81 mg chewable tablet 81 mg PO Q48H 01/01/23 01/01/23 Unknown History (Aspirin Childrens) atorvastatin 80 mg tablet 80 mg PO HS 01/01/23 01/01/23 Unknown History bethanechol chloride 10 mg tablet 10 mg PO TID 01/01/23 01/01/23 Unknown History brimonidine 0.2 % eye drops 1 drp EACH EYE BID 01/01/23 01/01/23 Unknown History cholecalciferol (vitamin D3) 25 50 mcg PO DAILY 01/01/23 01/01/23 Unknown History mcg (1,000 unit) tablet clopidogrel 75 mg tablet (Plavix) 75 mg PO DAILY 01/01/23 01/01/23 Unknown History finasteride 5 mg tablet 5 mg PO DAILY 01/01/23 01/01/23 Unknown History folic acid-vit B6-vit B12 2.2 1 tablet PO DAILY 01/01/23 01/01/23 Unknown History mg-25 mg-1 mg tablet (Virt-Neeta) hydrocodone 10 mg-acetaminophen 1 tablet PO Q48H PRN Pain (Scale 01/01/23 01/01/23 Unknown History 325 mg tablet Score 7-10) hydroxychloroquine 200 mg tablet 200 mg PO BID 01/01/23 01/01/23 Unknown History insulin aspart U-100 100 unit/mL 2 unit subcut QAM 01/01/23 01/01/23 Unknown History subcutaneous solution levetiracetam 500 mg tablet 1,000 mg PO BID 01/01/23 01/01/23 Unknown History lipase 10,500-protease 3 cap PO TID 01/01/23 01/01/23 Unknown History 35,500-amylase 61,500 unit capsule,delayed rel (Pancreaze) magnesium oxide 400 mg PO DAILY 01/01/23 01/01/23 Unknown History metformin 1,000 mg tablet 1,000 mg PO BIDWMEAL 01/01/23 01/01/23 Unknown History pantoprazole 40 mg tablet,delayed 40 mg PO QAM 01/01/23 01/01/23 Unknown History release pregabalin 100 mg capsule 100 mg PO QAM 01/01/23 01/01/23 Unknown History pregabalin 100 mg capsule 200 mg PO HS 01/01/23 01/01/23 Unknown History pyridoxine (vitamin B6) 50 mg 50 mg PO DAILY 01/01/23 01/01/23 Unknown History tablet sitagliptin phosphate 100 mg tablet 100 mg PO DAILY 01/01/23 01/01/23 Unknown History sotalol 80 mg tablet 120 mg PO BID 01/01/23 01/01/23 Unknown History tamsulosin 0.4 mg capsule 0.4 mg PO BID 01/01/23 01/01/23 Unknown History Allergies Allergy/AdvReac Type Severity Reaction Status Date / Time peanut Allergy Intermediate Swelling Verified 12/25/24 11:45 aspirin Allergy Mild aggravates Verified 12/25/24 11:45 stomach banana Allergy Unknown Itching Verified 12/25/24 11:45 latex Allergy Unknown Itching Verified 12/25/24 11:45 Penicillins Allergy Unknown Swelling Verified 12/25/24 11:45 Sulfa (Sulfonamide Allergy Unknown Swelling Verified 12/25/24 11:45 Antibiotics) celecoxib (From Celebrex) Allergy Swelling Verified 12/25/24 11:45 infliximab (From Remicade) Allergy Unknown Verified 12/25/24 11:45 meloxicam (From Mobic) Allergy Itching Verified 12/25/24 11:45 metoclopramide Allergy Unknown Verified 12/25/24 11:45 lisinopril AdvReac Swelling Verified 12/25/24 11:45 Review of Systems Review of Systems: All systems reviewed & are unremarkable except as noted in HPI. All systems reviewed & are unremarkable except as noted in HPI and below PMFSH Past Medical History Medical History Hypertension Hyperlipidemia Diabetes mellitus BPH (benign prostatic hyperplasia) Atrial fibrillation Family History Family History Father Lung disease Mother Heart attack Social History Social History Smoking status: Never smoker Alcohol intake: never Substance use: never Substance use type: does not use Spiritual care concerns: No Exam Narrative: GENERAL: Well appearing, thin, non-toxic, in no acute distress. HEAD: Normocephalic, atraumatic. RESPIRATORY: Airway patent, respirations nonlabored. Clear to auscultation bilaterally, no rales, rhonchi, wheezing. CARDIOVASCULAR: Regular rate and rhythm without murmurs, rubs, or gallops. Pedal pulses intact MUSCULOSKELETAL: Moves all extremities. No gross deformities. No significant tenderness throughout thoracic or lumbar midline spine. Mild tenderness to palpation over distal tailbone region. No palpable bony deformities. Minimal tenderness throughout right anterior knee. No significant swelling. SKIN: Warm, dry, normal color. NEURO: A&O X3. Speech clear. Cranial nerves II-XII grossly intact. Steady gait. No ataxic movements. PSYCHIATRIC: Appropriate mood and affect. Normal interaction. Course Vital Signs Vital signs: Vital Signs Temperature 97.9 F 12/25/24 10:03 Pulse Rate 84 12/25/24 10:03 Respiratory Rate 16 12/25/24 10:03 Blood Pressure 134/79 12/25/24 10:03 Pulse Oximetry 100 12/25/24 10:03 Oxygen Delivery Room Air 12/25/24 10:03 Temperature 97.9 F 12/25/24 10:03 Pulse Rate 57 L 12/25/24 12:38 Respiratory Rate 17 12/25/24 12:38 Blood Pressure 122/63 12/25/24 12:38 Pulse Oximetry 100 12/25/24 12:38 Oxygen Delivery Room Air 12/25/24 11:46 MDM - Fall MDM Narrative Medical decision making narrative: Patient presented to ED 2 days status post ground level mechanical fall with pain to tailbone, right knee. Denies head injury or LOC. vital signs stable. Patient neurologically intact. In no acute distress. X-ray of right knee negative CT of pelvis was obtained: IMPRESSION: 1. Nondisplaced fracture extending across the S4 segment and minimally displaced fracture at the L6 segment. Consistent with clinical picture patient presentation. Discussed case with Dr. Ross, orthopedics, advised pain control, donut seat, f/u with PCP. No intervention necessary. Discussed imaging findings with patient. Feel safe for discharge home with pain control. Discussed obtaining a donut seat for comfort. Patient voiced understanding. Feels comfortable going home. Given return precautions. Discharged in stable condition. Medical Records Attestation: I reviewed the patient's medical records. Imaging Data Attestation: I personally reviewed and interpreted this imaging study as follows: Radiologist's impression: ITS Impressions Pelvis CT 12/25/24 11:40 IMPRESSION: 1. Nondisplaced fracture extending across the S4 segment and minimally displaced fracture at the L6 segment. 2. Degenerative skeletal changes in the visualized lower lumbar spine and in the pelvis including mild left and mild to moderate right hip osteoarthritis. No other acute osseous adenopathy. Knee X-Ray 12/25/24 11:52 Impression: 1: No acute fracture. Discharge Plan Discharge Clinical Impression: Fall from ground level Closed sacral fracture Qualifiers: Encounter type: initial encounter Zone of sacrum fracture: unspecified portion of sacrum Qualified Code(s): S32.10XA - Unspecified fracture of sacrum, initial encounter for closed fracture Patient Disposition: Home Condition: Stable Instructions: Antibiotic Form, Sacral Fracture (ED) Additional Instructions: Utilize donut seat as needed for comfort. Recommend ice to areas of pain, Tylenol as needed for pain. [place] as needed for more severe pain. Follow-up with your primary care doctor for further evaluation. Return to the ED if you experience worsening or severe pain, recurrent fall or injury, numbness in groin, going to the bathroom without meeting to, unable to keep down food or drink, or any other symptoms of concern. Patient Language: Bengali Prescriptions: New hydrocodone-acetaminophen 5-325 mg tablet 1 tablet PO Q6H PRN (Reason: pain) Qty: 15 0RF No Action methylprednisolone [Medrol (Ricardo)] 4 mg tablets,dose pack See Rx Instructions PO .COMPLEX Qty: 21 0RF Rx Instructions: orally per package directions atorvastatin 80 mg Tablet 80 mg PO HS bethanechol chloride 10 mg Tablet 10 mg PO TID levetiracetam 500 mg Tablet 1,000 mg PO BID sotalol 80 mg Tablet 120 mg PO BID clopidogrel [Plavix] 75 mg Tablet 75 mg PO DAILY amlodipine 5 mg Tablet 5 mg PO DAILY hydrocodone-acetaminophen 10-325 mg Tablet 1 tablet PO Q48H PRN (Reason: Pain (Scale Score 7-10)) tamsulosin 0.4 mg Capsule 0.4 mg PO BID insulin aspart U-100 100 unit/mL Solution 2 unit SUBCUT QAM pantoprazole 40 mg Tablet,Delayed Release (Dr/Ec) 40 mg PO QAM metformin 1,000 mg Tablet 1,000 mg PO BIDWMEAL brimonidine 0.2 % Drops 1 drp EACH EYE BID pyridoxine (vitamin B6) 50 mg Tablet 50 mg PO DAILY aspirin [Aspirin Childrens] 81 mg Tablet,Chewable 81 mg PO Q48H hydroxychloroquine 200 mg Tablet 200 mg PO BID finasteride 5 mg Tablet 5 mg PO DAILY pregabalin 100 mg Capsule 100 mg PO QAM pregabalin 100 mg Capsule 200 mg PO HS Virt-Neeta 2.2-25-1 mg Tablet 1 tablet PO DAILY cholecalciferol (vitamin D3) 25 mcg (1,000 unit) Tablet 50 mcg PO DAILY sitagliptin phosphate 100 mg Tablet 100 mg PO DAILY Pancreaze 10,500-35,500- 61,500 unit Capsule,Delayed Release(Dr/Ec) 3 cap PO TID Rx Instructions: administer with meals and/or snacks- to start on 01/02/2023 magnesium oxide 400 mg magnesium Tablet 400 mg PO DAILY sennosides-docusate sodium [Senokot-S] 8.6-50 mg Tablet 1 tab PO HS Qty: 14 0RF cyanocobalamin (vitamin B-12) 1,000 mcg/mL Solution 1,000 mcg IM MONTHLY Qty: 0 0RF Follow-up/Referrals: Eliane Hsu MD [Primary Care Provider] - Time of Disposition: 12:58
[2024-12-25 12:38] VITALS: BP 122/63; PULSE 57; RESP 17; O2SAT 100
== END 2024-12-25 13:13 | disposition home or self-care (01) ==
PROVIDERS: Emergency Provider Physician Assistant; PCP Internal Medicine
DX: S32.19XA Other fracture of sacrum, initial encounter for closed fracture (principal); I10 Essential (primary) hypertension; I48.91 Unspecified atrial fibrillation; E11.9 Type 2 diabetes mellitus without complications; E78.5 Hyperlipidemia, unspecified; N40.0 Benign prostatic hyperplasia without lower urinary tract symptoms; Z79.899 Other long term (current) drug therapy; Z79.4 Long term (current) use of insulin; Z79.02 Long term (current) use of antithrombotics/antiplatelets; Z79.84 Long term (current) use of oral hypoglycemic drugs; Z79.82 Long term (current) use of aspirin; W18.39XA Other fall on same level, initial encounter
CPT/HCPCS: 72192; 73564; 99284; A9270

== ENCOUNTER 2025-01-08 04:34 | Inpatient (IN) | payer MEDICARE, BC, OTHER, SELFPAY ==
--- OUTSIDE RECORDS SUMMARY | 2020-04-22 15:09 | XMS_ITS | Encounter Summary ---
Author Organization [facility] Address [address] [facility] [place] [address] Care Team Providers Care Filament Shaper Name Role Phone Maxim Martínez MD Primary Care Provider [phone] Maxim Martínez MD Unavailable Eboni Watkins Unavailable [phone] Cheyanne Allan MD Unavailable [phone] Betzy Montana MD Unavailable [phone] Manisha Cao RN Unavailable Dora Peraza MD Unavailable Encounter Details Date Type Department Care Team (Late st Contact Info) Description 04/22/2020 2:09 PM FLAT CUTTER Hospital Encounter [address] [address] Laureen Roberts MD [facility] [address] [place] [phone] Nena Pérez [place] [address] [facility] [place] [address] Select Direct Social History Tobacco [...] Recorded Patient Health Questionnaire-2 Score 0 02/04/2024 [facility]at ional [facility] - Occupational Stress Questionnaire Answer Date Recorded [...] place to sleep or slept in a assisted (including now)? No 02/26/2023 Sex and Gender Information Value Date Recorded Sex Assigned at Not on file Legal Sex Male 1:20 PM FLAT CUTTER Gender Identity Not on file Sexual Orientation Not on file COVID-19 Exposure Response Date Recorded In the last 10 days, have yo u been in contact with someone who was [...] Author No 11/10/2019 6:30 AM CDT Augusta Barboza, RN * Does person have serious difficulty walking/climbing stairs? Answer Date of Assessment Author Yes 11/10/2019 6:30 AM CDT Augusta Barboza, RN * Does person have difficulty dressing/bathing? Answer Date of Assessment Author Yes 11/10/2019 6:30 AM CDT Augusta Barboza, RN * Does person have difficulty doing errands alone? Answer Date of Assessment Author Yes 11/10/2019 6:30 AM CDT Augusta Barboza, RN * Over the past 2 weeks, [...] COVID-19 Confirmed 04/13/2020 04/13/2020 0 4:34 AM FLAT CUTTER C DIFF 04/22/2020 04/22/2020 09/23/2020 8:37 AM CDT COVID-19 Confirmed Comment:Added from external infection. 08/01/2020 12/23/2020 8:11 AM C DT COVID-19 Under Investigation 03/02/2022 03/02/2022 03/02/2022 3:05 PM CDT CDIFF Under Investigation 07/29/2022 07/29/2022 7:20 AM CDT documented as of this encounter Care Teams Filament Shaper Relationship Specialty Start Date End Date Maxim Martínez MD PCP - General 02/11/20 10/16/20 Eboni Watkins APRN-PIT FURNACE MELTER [address] [place] [address] PCP - Attributed-MSSP 11/11/19 11/09/20 Maxim Martínez MD Family Medicine 02/11/20 08/03/20 [place] [address] [facility] [address] [place] [address] Urology 03/20/16 01/17/21 Betzy Montana MD [address] [place] [address] [address] [place], [place] [id number] Rheumatology 11/24/19 Manisha Cao RN Lithographic PhotographerShot Lighter 02/10/20 09/22/23 [place] [address] [place], [place] [id number] Orthopedic Surgery 03/14/20 documented as of this encounter
--- OUTSIDE RECORDS SUMMARY | 2023-10-25 10:15 | XMS_ITS ---
Author Organization [facility] Address [address] [place] [address] Care Team Providers Care Metal Window Frame Maker Name Role Phone Miguel Clayton Unavailable [phone] Betzy Montana MD Unavailable Unavailable Allergies Allergen (clinical drug ingredient) Drug/Non Drug Allergy documented on EMR Reaction Allergy Type Onset Date Status penicillin (uncoded) Unknown Allergy Active Substance with sulfonamide structure and antibacterial mechanism of action (substance) sulfa (uncoded) Unknown Allergy Active REASON FOR VISIT Lower Back Pain talk inj no new imaging Medications Medication SIG (Take, Route, Frequency, Duration) Notes Start Date End Date Status Furosemide 40 MG 1 tablet Orally Once a day Active Metoprolol Succinate Active EnteraGam 5 GM Orally Activ e HYDROcodone-Acetaminophen 7.5-325 MG 1 tablet as needed Orally every 6 hrs; Duration: 30 days Active metFORMIN HCl 1000 MG 1 tablet with a me al Orally Once a day Active amLODIPine Besylate 10 MG 1 tablet Orall y Once a day Active Horizon Lumbar Support as directed 01/07/2017 Active Gabapentin 600 MG 1 tablet Orally Two times a day Active Bethanechol Chloride 25 MG 1 tablet on a n empty stomach Orally Three times a day Active Aspirin 81 MG 1 capsule Orally Onc e a day; Duration: 30 day(s) Active Brimonidine Tartrate 0.2 % 1 drop into a ffected eye Ophthalmic every 8 hrs Active Clopidogrel Bisulfate 75 MG 1 tablet Ora lly Once a day; Duration: 30 day(s) Active Atorvastatin Calcium 80 MG 1 tablet Oral ly Once a day; Duration: 30 day(s) Active Cyanocobalamin 100 MCG as directed Orally Active Finasteride 5 MG 1 tablet Orally Once a day; Duration: 30 day(s) Active Plavix 75 MG 1 tablet Orally Once a day Active Eliquis 5 MG as directed Orally Active Folic Acid 1 MG 1 tablet Orally Once a day; Duration: 30 day(s) Active Encounters Encounter Location Date Provider Diagnosis -[facility] [address] [facility] [address] [place] [address] 10/25/2023 Miguel Clayton Plan Of Treatment No Information Progress Notes * Jesse HUNTER EDOB:1950 (74 yo M)Acc No.[id number]:10/25/2023 Progress Note Patient: Jesse RED Provider: Abdiel Clayton MD :1950 A ge:73 Y S ex:Male Date:10/25/2023 Address:[address] [place] [id number] Subjective: * Chief Complaints: * 1 . Lower Back Pain talk inj no new imaging. * ROS: A complete review of 10 systems was completed and negative unless noted above in history of present illness or intake questionnaire . * Medical History: H igh blood pressure, Diabetes, Rheumatoid Arthritis, Prostate problems/urinary incontinence/bladder infections. * Surgical History: k nee surgery 2012, back surgery 2010. * Family History: F ather: . M other: . S iblings: alive. Abdiel mckinney: alive. * Social History: M arried: yes. Children: yes. Smoking: no . A lcohol: no. Exercise: no. Recreational drug use: no. New since last visit: no. * Medications: T aking Folic Acid 1 MG Tablet 1 tablet Orally Once a day , Taking Finasteride 5 MG Tablet 1 tablet Orally Once a day , Taking Cyanocobalamin 100 MCG Tablet as directed Orally , Taking Clopidogrel Bisulfate 75 MG Tablet 1 tablet Orally Once a day , Taking Brimonidine Tartrate 0.2 % Solution 1 drop into affected eye Ophthalmic every 8 hrs , Taking Atorvastatin Calcium 80 MG Tablet 1 tablet Orally Once a day , Taking Aspirin 81 MG Capsule 1 capsule Orally Once a day , Taking Horizon Lumbar Support as directed , Taking amLODIPine Besylate 10 MG Tablet 1 tablet Orally Once a day , Taking Bethanechol Chloride 25 MG Tablet 1 tablet on an empty stomach Orally Three times a day , Taking Gabapentin 600 MG Tablet 1 tablet Orally Two times a day , Taking Metoprolol Succinate , Taking Furosemide 40 MG Tablet 1 tablet Orally Once a day , Taking EnteraGam 5 GM Packet Orally , Taking metFORMIN HCl 1000 MG Tablet 1 tablet with a meal Orally Once a day , Taking HYDROcodone-Acetaminophen 7.5-325 MG Tablet 1 tablet as needed Orally every 6 hrs , Taking Eliquis 5 MG Tablet as directed Orally , Taking Plavix 75 MG Tablet 1 tablet Orally Once a day , Medication List reviewed and reconciled with the patient * Allergies: S ulfa, Penicillin. Objective: * Vitals: Assessment: Plan: * Treatment: * Images: Billing Information: * Visit Code: * Procedure Codes: * Electronic signature of Miguel Clayton MD on 01/08/2025 at 05:07 AM CDT Sign off status: Pending * Provider: Abdiel Clayton MD Date: 0 10/25/2023 Generated for Chan recio/Camilo/Ariadna on: 01/08/2025 05:07 AM CDT
--- OUTSIDE RECORDS SUMMARY | 2024-02-05 05:20 | XMS_ITS ---
Author Organization [facility] Address [address] [place] [address] Care Team Providers Care Flat Surfacer Name Role Phone Miguel Clayton Unavailable [phone] Betzy Montana MD Unavailable Unavailable Allergies Allergen [...] Duration: [address] 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 Lives in [place] Plan Of Treatment Medication Medication Name Sig Start Date Stop Date Notes HYDROcodone-Acetaminophe n 5-325 MG 1 tablet as needed Orally once a day; Duration: 7 days 02/05/2024 Dr. Miguel Clayton KENDAL: [id number] Treatment Notes Assessment Notes Sacroiliitis, not elsewhere [...] Order Date UDS [facility] ToxAssure Flex 23 #[id number] Next Appt Details Follow Up: 2 Weeks, Reason: Progress Notes * GUTIERREZ Jesse EDOB:1950 (74 yo M)Acc No.[id number]:02/05/2024 Progress Note Patient: Jesse RED Provider: Abdiel Clayton MD :1950 A ge:73 Y S ex:Male Date:02/05/2024 Address:[address] [place] [address] , [place], [id number] Subjective: * Chief Complaints: * 1 . [...] as well, such of that of a cmko-tj-ydse parent or volunteer. 1 0-Worst Disability, S [...] Notes to Pharmacist: Dr. Miguel Clayton KENDAL: [id number]. Clinical Notes: Reviewed [place] PDMP on 02/04/24 at 10:05 am and patient was not found in the system. Lives in [place] * Follow Up: 2 Weeks * Images: Billing Information: * Visit Code: 56710 Office Visit, Est Pt., Level 3. * Procedure Codes: * Electronic signature of Miguel Clayton MD on 01/08/2025 at 05:09 AM CDT Sign off status: Pending * Provider: Abdiel Clayton MD Date: 0 02/05/2024 Generated for Chan recio/Camilo/eTanicetosmnuria on: 0 01/08/2025 05:09 AM CDT History and Physical Notes * HPI [...] as well, such of that of a oxaq-ez-bhuk parent or volunteer.: 10-Worst Disability Sexual Behavior: [...] directed home exercise program Have you tried outside physical damage appraiser apy? (If Yes where and when): Yes [...]
--- OUTSIDE RECORDS SUMMARY | 2024-03-09 06:00 | XMS_ITS ---
Author Organization [facility] Address [address] [place] [address] Care Team Providers Care Business Analytics Manager Name Role Phone Miguel Clayton Unavailable [phone] Betzy Montana MD Unavailable Unavailable Allergies Allergen (clinical drug ingredient) Drug/Non Drug Allergy documented on EMR Reaction Allergy Type Onset Date Status penicillin (uncoded) Unknown Allergy Active Substance with sulfonamide structure and antibacterial mechanism of action (substance) sulfa (uncoded) Unknown Allergy Active REASON FOR VISIT Meds with TABLE WORKER Medications Medication SIG (Take, Route, Frequency, Duration) Notes Start Date End Date Status Atorvastatin Calcium 80 MG 1 tablet Orally Once a day; Duration: 30 day(s) Active Brimonidine Tartrate 0.2 % 1 drop into affected eye Ophthalmic every 8 hrs Active Folic Acid 1 MG 1 tablet Orally Once a day; Duration: 30 day(s) Active Cyanocobalamin 100 MCG as directed Orally Active Finasteride 5 MG 1 tablet Orally Once a day; Duration: 30 day(s) Active HYDROcodone-Acetaminoph en 5-325 MG 1 tablet as needed Orally once a day; Duration: [address] Miguel Clayton KENDAL: [id number] 02/05/2024 Active EnteraGam 5 GM Orally Activ e Furosemide 40 MG 1 tablet Orally Once a day Active metFORMIN HCl 1000 MG 1 tablet with a meal Orally Once a day Active HYDROcodone-Acetaminoph en 7.5-325 MG 1 tablet as needed Orally every 6 hrs; Duration: 7 days Active amLODIPine Besylate 10 MG 1 tablet Orally Once a day Active Horizon Lumbar Support as directed 01/07/2017 Active Gabapentin 600 MG 1 tablet Orally Two times a day Active Bethanechol Chloride 25 MG 1 tablet on an empty stomach Orally Three times a day Active Metoprolol Succinate Active Problems Problem Type SNOMED Code ICD Code Onset Dates Problem Status W/U Status Risk Notes Problem Lumbar radiculopathy (844783370) Radiculopat hy, lumbar region (M54.16) Active confirmed Encounters Encounter Location Date Provider Diagnosis -[facility]/ PHYS [facility] [address] [address] [place] [address] 03/09/2024 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 Z79.891 ; Spondylosis without myelopathy or radiculopathy, cervical region M47.812 ; Radiculopathy, lumbar region M54.16 ; Sacroiliitis, not elsewhere classified M46.1 and Primary osteoarthritis, unspecified shoulder M19.019 Assessments Encounter Date Diagnosis (ICD Code) Assessment Notes Treatment Notes Treatment Clinical Notes Section Notes 03/09/2024 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 the patient does have diffuse aches and [...] good relief with hydrocodone in the past. 03/09/2024 Primary osteoarthritis, unspecified shoulder (ICD-10 - M19.019) 03/09/2024 Other Reviewed [place] PDMP on 02/04/24 at 10:05 am and patient was not found in the system. Lives in [place] Plan Of Treatment Medication Medication Name Sig Start Date Stop Date Notes HYDROcodone-Acetaminophen 7.5-325 MG 1 tablet as needed Orally every 6 hrs; Duration: 7 days Treatment Notes Assessment Notes Sacroiliitis, not elsewhere classified Controlled medications will be escribed. the patient does have diffuse aches and [...] good relief with hydrocodone in the past. Progress Notes * Jesse HUNTER EDOB:1950 (74 yo M)Acc No.[id number]:03/09/2024 Progress Notes Patient: Jesse RED Provider: Abdiel Clayton MD Resource:Leia Valdez :1950 A ge:73 Y S ex:Male Date:03/09/2024 Address:[address] [place] [address] , [id number] Subjective: * Chief Complaints: * 1 . Meds with TABLE WORKER. * HPI: P ain Disability Index: Pain [...] as well, such of that of a arjz-qm-eglp parent or volunteer. 1 0-Worst Disability, S [...] . M other: . S iblings: alive. C hank: alive. N on-Contributory. * Social History: M [...] needed Orally every 6 hrs , Taking HYDROcodone-Acetaminophen 5-325 MG Tablet 1 tablet as needed Orally once a day , Notes to Pharmacist: Dr. Miguel Clayton KENDAL: [id number], Medication List reviewed and reconciled with the patient * Allergies: S ulfa, Penicillin. Objective: * Vitals: * Examination: G eneral examination: General appearance: [...] 2. S acroiliitis, not elsewhere classified Notes: Controlled medications will be escribed. the patient does have diffuse aches and [...] hydrocodone in the past. 3. O thers Clinical Notes: Reviewed [place] PDMP on 02/04/24 at 10:05 am and patient was not found in the system. Lives in [place] * Images: Billing Information: * Visit Code: * Procedure Codes: * Electronic signature of Miguel Clayton MD on 01/08/2025 at 05:08 AM CDT Sign off status: Pending * Provider: Abdiel Clayton MD Date: Generated for [facility] almita/Camilo/Berlinitting on: 0 01/08/2025 05:08 AM CDT History and Physical Notes * [...] as well, such of that of a phos-dw-xjiv parent or volunteer.: 10-Worst Disability Sexual Behavior: [...] home exercise program Have you tried physical education professor apy? (If Yes where and when): Yes [place] Have you tried any of the [...] o person, place and time Neurologic exam: 5/[address] rength, left-sided facial droop Back Some mild lumbar par aspinous tenderness Musculoskeletal osteoarthritis in th e hands with degenerative changes bilaterally, no acute swelling
--- OUTSIDE RECORDS SUMMARY | 2024-05-04 08:30 | XMS_ITS ---
Author Organization [facility] Address 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 Gabriel West KENDAL: [id number] 04/21/2024 Active Folic Acid 1 MG 1 [...] Active Encounters Encounter Location Date Provider Diagnosis -[facility] [address] [place] [id number] 05/04/2024 Miguel Clayton Plan Of Treatment No Information Progress Notes * Jesse HUNTER EDOB:1950 (74 yo M)Acc No.[id number]:05/04/2024 Progress Note Patient: Jesse RED Provider: Abdiel Clayton MD :1950 A ge:73 Y S ex:Male Date:05/04/2024 Address:[address] [place] [address], [facility], [id number] Subjective: * Chief Complaints: * 1 . Lumbar MBB @ [facility] No Sedation. * ROS: A [...] Notes to Pharmacist: Dr. Gabriel West KENDAL: [id number], Medication List reviewed and reconciled with the patient * Allergies: S ulfa, Penicillin. Objective: * Vitals: Assessment: Plan: * Treatment: * Images: Billing Information: * Visit Code: * Procedure Codes: * Electronic signature of Miguel Clayton MD on 01/08/2025 at 05:09 AM CDT Sign off status: Pending * Provider: Abdiel Clayton MD Date: 07/05/2023 Generated for Chan recio/Camilo/Ariadna on: 0 01/08/2025 05:09 AM CDT
[2025-01-08] VITALS (7 sets, daily range): BP systolic 138–169; BP diastolic 84–90; PULSE 70–94; RESP 15–18; TEMP 36.9–37.3; O2SAT 97–100; BMI 19.1
--- NOTE | ~2025-01-08 | XR_ITS ---
EXAMINATION: XR chest 1V portable 01/08/2025 05:14 INDICATION: Weakness PROCEDURE: AP portable chest COMPARISON: 10/02/2024 FINDINGS: The lungs are clear. The cardiomediastinal silhouette is within normal limits. There are no pleural effusions. There is no pneumothorax suspected. IMPRESSION: 1: NO ACUTE CARDIOPULMONARY DISEASE. Reviewed, dictated and finalized at location O.
--- NOTE | ~2025-01-08 | XR_ITS ---
EXAMINATION: XR chest 1V portable, 01/09/2025 14:05 CDT HISTORY: hypotension COMPARISON: No comparisons available. Technique: Single view. Findings: The lungs are clear, no effusion. No pneumothorax. Heart is normal size. Mediastinal and hilar contours are within normal limits. Bony thorax no acute abnormality. Impression: No acute cardiopulmonary abnormality. Reviewed, dictated and finalized at location A. Impression: No acute cardiopulmonary abnormality.
--- NOTE | ~2025-01-08 | XR_ITS ---
EXAMINATION: XR chest 1V portable DATE: 01/16/2025 12:29 INDICATION: Hiccups. Diaphragmatic pathology. TECHNIQUE: frontal view of the chest was obtained. COMPARISON: Chest radiograph dated 01/09/2025 FINDINGS: Skinfold projects over the right midlung zone. No focal airspace opacities, pulmonary edema, pleural effusion or pneumothorax. Cardiomediastinal silhouette is normal. IMPRESSION: 1. No acute cardiopulmonary disease. Reviewed, dictated and finalized at location A.
--- NOTE | ~2025-01-08 | XR_ITS ---
EXAMINATION: XR shoulder RT min 2V DATE: 01/11/2025 21:45 INDICATION: Right shoulder pain TECHNIQUE: AP internally and externally rotated, AP oblique externally rotated and transscapular Y views of the right shoulder were obtained. COMPARISON: 01/31/2017 FINDINGS: Normal alignment. No fracture.Mild right glenohumeral osteoarthritis. Moderate acromioclavicular osteoarthritis. There are scattered enthesophytes at multiple sites of ligamentous or tendinous attachments to the bone which along with bridging osteophytes at multiple levels in the thoracic spine can be seen with diffuse idiopathic skeletal hyperostosis (DISH). IMPRESSION: Mild right glenohumeral and moderate acromioclavicular osteoarthritis. No acute osseous abnormality. Reviewed, dictated and finalized at location A.
--- NOTE | ~2025-01-08 | CT_ITS ---
EXAM: CT abdomen pelvis w con - 01/15/2025 11:36 CDT History: 74 years old Male with abd pain TECHNIQUE: Multidetector CT of the abdomen and pelvis with intravenous contrast. Coronal and sagittal reformats were also provided for review. Automatic exposure control was used for this study. CONTRAST: 100 cc of Optiray 350 was used for this study. COMPARISON: 12/25/2024. FINDINGS: VISUALIZED CHEST: Visualized lungs are clear. ABDOMEN and PELVIS: LIVER: Focal fatty infiltration along falciform ligament GALLBLADDER: Postcholecystectomy. BILE DUCTS: No dilatation. SPLEEN: Within normal limits. PANCREAS: Within normal limits. ADRENAL GLANDS: Within normal limits. KIDNEYS and URETERS: No hydronephrosis or hydroureter. No nephroureterolithiasis. URINARY BLADDER: Within normal limits. STOMACH and BOWEL: No abnormal bowel wall thickening. No obstruction or pneumatosis. Normal appendix. REPRODUCTIVE ORGANS: Within normal limits. MESENTERY/PERITONEAL CAVITY: No free fluid or pneumoperitoneum. LYMPH NODES: No abdominal or pelvic lymphadenopathy. ABDOMINAL WALL: Within normal limits. VASCULATURE: Within normal limits. MUSCULOSKELETAL: Multilevel degenerative changes of the spine. Previously seen lumbosacral fractures are less conspicuous on current examination. IMPRESSION: No evidence of acute pathology in the abdomen and pelvis. Reviewed, dictated and finalized at location N.
--- NOTE | 2025-01-08 04:51 | ECG_ITS ---
Test Date: 2025-01-08 04:58:34 Measurements Intervals [place] Rate: 78 P: 68 VA: 154 QRS: 59 QRSD: 73 T: 54 QT: 347 QTc: 395 Interpretive Statements SINUS RHYTHM LEFT VENTRICULAR HYPERTROPHY AND ST-T CHANGE BORDERLINE ST-T WAVE ABNORMALITY- HIGH LATERAL LEADS BASELINE ARTIFACT- I, III, AVL BORDERLINE ECG Compared to ECG 05/01/2024 10:44:43 Left ventricular hypertrophy now present Electronically Signed On 01-08-2025 06:43:40 CDT by Nolberto Perea D.O.
--- NOTE | 2025-01-08 04:59 | ED.GENADULT ---
HPI - General Adult General Chief complaint: Weakness Stated complaint: generalized weakness History of Present Illness HPI narrative: This is a 74-year-old male presenting to the ED for generalized weakness. Patient said that he tried to get up from his arm chair at 3:00 a.m. I and when he got up he was too weak and slid to the floor. EMS was called for lift assist in the family convinced him to come to ER to be evaluated. The patient himself is complaining weakness but no other findings. He is denying headache or head trauma during the fall, chest pain difficulty breathing abdominal pain nausea vomiting diarrhea or urinary symptoms. He was diagnosed with the UTI by his primary care physician and antibiotics were called in but he has not been able to obtain them or take any. Related Data Home Medications ?Medication ?Instructions ?Recorded ?Confirmed ?Last Taken ?Type amlodipine 5 mg tablet 5 mg PO DAILY 01/01/23 01/01/23 Unknown History aspirin 81 mg chewable tablet 81 mg PO Q48H 01/01/23 01/01/23 Unknown History (Aspirin Childrens) atorvastatin 80 mg tablet 80 mg PO HS 01/01/23 01/01/23 Unknown History bethanechol chloride 10 mg tablet 10 mg PO TID 01/01/23 01/01/23 Unknown History brimonidine 0.2 % eye drops 1 drp EACH EYE BID 01/01/23 01/01/23 Unknown History cholecalciferol (vitamin D3) 25 50 mcg PO DAILY 01/01/23 01/01/23 Unknown History mcg (1,000 unit) tablet clopidogrel 75 mg tablet (Plavix) 75 mg PO DAILY 01/01/23 01/01/23 Unknown History finasteride 5 mg tablet 5 mg PO DAILY 01/01/23 01/01/23 Unknown History folic acid-vit B6-vit B12 2.2 1 tablet PO DAILY 01/01/23 01/01/23 Unknown History mg-25 mg-1 mg tablet (Virt-Neeta) hydrocodone 10 mg-acetaminophen 1 tablet PO Q48H PRN Pain (Scale 01/01/23 01/01/23 Unknown History 325 mg tablet Score 7-10) hydroxychloroquine 200 mg tablet 200 mg PO BID 01/01/23 01/01/23 Unknown History insulin aspart U-100 100 unit/mL 2 unit subcut QAM 01/01/23 01/01/23 Unknown History subcutaneous solution levetiracetam 500 mg tablet 1,000 mg PO BID 01/01/23 01/01/23 Unknown History lipase 10,500-protease 3 cap PO TID 01/01/23 01/01/23 Unknown History 35,500-amylase 61,500 unit capsule,delayed rel (Pancreaze) magnesium oxide 400 mg PO DAILY 01/01/23 01/01/23 Unknown History metformin 1,000 mg tablet 1,000 mg PO BIDWMEAL 01/01/23 01/01/23 Unknown History pantoprazole 40 mg tablet,delayed 40 mg PO QAM 01/01/23 01/01/23 Unknown History release pregabalin 100 mg capsule 100 mg PO QAM 01/01/23 01/01/23 Unknown History pregabalin 100 mg capsule 200 mg PO HS 01/01/23 01/01/23 Unknown History pyridoxine (vitamin B6) 50 mg 50 mg PO DAILY 01/01/23 01/01/23 Unknown History tablet sitagliptin phosphate 100 mg tablet 100 mg PO DAILY 01/01/23 01/01/23 Unknown History sotalol 80 mg tablet 120 mg PO BID 01/01/23 01/01/23 Unknown History tamsulosin 0.4 mg capsule 0.4 mg PO BID 01/01/23 01/01/23 Unknown History Allergies Allergy/AdvReac Type Severity Reaction Status Date / Time peanut Allergy Intermediate Swelling Verified 01/08/25 05:18 aspirin Allergy Mild aggravates Verified 01/08/25 05:18 stomach banana Allergy Unknown Itching Verified 01/08/25 05:18 latex Allergy Unknown Itching Verified 01/08/25 05:18 Penicillins Allergy Unknown Swelling Verified 01/08/25 05:18 Sulfa (Sulfonamide Allergy Unknown Swelling Verified 01/08/25 05:18 Antibiotics) celecoxib (From Celebrex) Allergy Swelling Verified 01/08/25 05:18 infliximab (From Remicade) Allergy Unknown Verified 01/08/25 05:18 meloxicam (From Mobic) Allergy Itching Verified 01/08/25 05:18 metoclopramide Allergy Unknown Verified 01/08/25 05:18 lisinopril AdvReac Swelling Verified 01/08/25 05:18 [facility] Past Medical History Medical History Hypertension Hyperlipidemia Diabetes mellitus BPH (benign prostatic hyperplasia) Atrial fibrillation Family History Family History Father Lung disease Mother Heart attack Social History Social History Smoking status: Never smoker Alcohol intake: never Substance use: never Substance use type: does not use Spiritual care concerns: No Exam Narrative: APPEARANCE: No apparent distress. Head: atraumatic. EYES: EOMI, NOSE: Atraumatic NECK: Trachea midline RESPIRATORY: No increased rate of breathing clear to auscultation CARDIOVASCULAR: RRR, no peripheral edema ABDOMINAL: Non-distended soft nontender MUSCULOSKELETAl: No obvious deformities NEURO: Alert. Right-sided facial droop, dress the cranial nerves are grossly intact. Sensation light touch, motor function cerebellar function intact for 4 extremities. Gait exam was deferred SKIN:: Warm, dry. Normal color PSYCHIATRIC: Normal affect Course Vital Signs Vital signs: Vital Signs Temperature 99.2 F 01/08/25 04:34 Pulse Rate 84 01/08/25 04:34 Respiratory Rate 15 01/08/25 04:34 Blood Pressure 167/89 H 01/08/25 04:34 Pulse Oximetry 97 01/08/25 04:34 Oxygen Delivery Room Air 01/08/25 04:34 Temperature 99.2 F 01/08/25 04:34 Pulse Rate 70 01/08/25 07:54 Respiratory Rate 18 01/08/25 07:54 Blood Pressure 160/88 H 01/08/25 07:54 Pulse Oximetry 100 01/08/25 07:54 Oxygen Delivery Room Air 01/08/25 04:34 Medical Decision Making [facility] Narrative Medical decision making narrative: -Course: 74-year-old male presenting with generalized weakness after sliding to the ground and being unable to get back up. His physical exam is unremarkable. Patient was diagnosed with the UTI outpatient but had not filled his antibiotics. His urine here is indicative of infection. He has been started on ceftriaxone. Rest of his laboratory studies are unremarkable. He is not septic. His viral swabs and chest x-ray were negative. On re-evaluation patient states he is still feeling weak. Unable to walk with steady gait. Patient placed in the hospital for PT OT evaluation and possible placement. -DDX includes but is not limited to: Sepsis, UTI dehydration pneumonia Vital Signs Vital Signs: Vital Signs Temperature 99.2 F 01/08/25 04:34 Pulse Rate 84 01/08/25 04:34 Respiratory Rate 15 01/08/25 04:34 Blood Pressure 167/89 H 01/08/25 04:34 Pulse Oximetry 97 01/08/25 04:34 Oxygen Delivery Room Air 01/08/25 04:34 Temperature 99.2 F 01/08/25 04:34 Pulse Rate 70 01/08/25 07:54 Respiratory Rate 18 01/08/25 07:54 Blood Pressure 160/88 H 01/08/25 07:54 Pulse Oximetry 100 01/08/25 07:54 Oxygen Delivery Room Air 01/08/25 04:34 Lab Data 01/08/25 05:06 01/08/25 05:06 Labs: Lab Results 01/08/25 Range/Units 05:06 WBC 6.5 (4.5-10.0) K/mm3 RBC 4.68 (4.6-6.20) M/mm3 Hgb 13.4 L (14.0-18.0) g/dL Hct 40.5 L (42.0-52.0) % MCV 86.5 (80-100) fl MCH 28.6 (26-34) pg MCHC 33.1 (32-36) g/dl RDW 15.0 H (11.5-14.5) % Plt Count 278 (150-375) k/mm3 MPV 8.5 (7.4-10.4) fl Immature Gran % (Auto) 0.3 (0-0.5) % Neut % (Auto) 65.2 (45.5-73.1) % Lymph % (Auto) 22.9 (18.3-44.2) % [place] % (Auto) 7.8 (2.6-8.5) % Eos % (Auto) 3.2 (0-4.4) % Baso % (Auto) 0.6 (0.2-1.2) % Lymph # (Auto) 1.49 (0.9-3.2) K/mm3 [place] # (Auto) 0.5 (0.1-0.6) K/mm3 Eos # (Auto) 0.2 (0-0.3) K/mm3 Baso # (Auto) 0.0 (0.0-0.1) K/mm3 Abs Immat Gran (auto) 0.02 (0.00-0.031) K/mm3 Absolute Neuts (auto) 4.2 (1.3-6.7) K/mm3 Absolute Nucleated RBC 0.000 (0.0-0.012) K/mm3 Nucleated RBC % 0.0 (0.0-0.2) % Sodium 138 (137-145) mmol/L Potassium 3.6 (3.4-5.0) mmol/L Chloride 102 (98-107) mmol/L Carbon Dioxide 27 (22-30) mmol/L Anion Gap 9 (4-12) mmol/L BUN 12 (9-20) mg/dL Creatinine 1.00 (0.7-1.3) mg/dL Estim Creat Clear Calc 66 ml/min Estimated GFR > 60 (59 - ) Glucose 160 H (65-110) mg/dL Lactic Acid 1.5 (0.7-2.0) mmol/L Calcium 9.8 (8.4-10.2) mg/dL Total Bilirubin 1.0 (0.2-1.3) mg/dL AST 30 (17-59) U/L ALT 24 (6-50) U/L Alkaline Phosphatase 86 (38-126) U/L Total Protein 8.7 H (6.3-8.2) g/dL Albumin 4.3 (3.5-5.1) g/dL Urine Color Yellow (Yellow) Urine Appearance Cloudy H (Clear) Urine pH 6.5 (5.0-9.0) Ur Specific [place] 1.014 (1.001-1.035) Urine Protein Negative (Negative) mg/dL Urine Glucose (UA) Negative (Negative) mg/dL Urine Ketones Negative (Negative) mg/dL Ur Blood (Man) 1+ H (Negative) Urine Nitrate Positive H (Negative) Urine Bilirubin Negative (Negative) Urine Urobilinogen 0.2 (<2.0) mg/dL Leukocyte Esterase Rfl 1+ H (Negative) HINA/UL Urine RBC 3-5 H (0-2) /hpf Urine WBC 11-20 H (0-3) /hpf Ur Squamous Epith Cells None seen (Few) /hpf Urine Bacteria Rare /hpf Urine Casts 0-2 Influenza A (RT-PCR) Negative (Negative) Influenza B (RT-PCR) Negative (Negative) RSV (RT-PCR) Negative (Negative) SARS-CoV-2 RNA (RT-PCR) Negative (Negative) Discharge Plan Discharge Clinical Impression: Acute UTI, Generalized weakness Patient Disposition: Still a Patient Condition: Stable Patient Language: [place] Prescriptions: No Action methylprednisolone [Medrol (Ricardo)] 4 mg tablets,dose pack See Rx Instructions PO .COMPLEX Qty: 21 0RF Rx Instructions: orally per package directions tramadol 50 mg tablet 50 mg PO Q6H PRN (Reason: pain) Qty: 15 0RF atorvastatin 80 mg Tablet 80 mg PO HS bethanechol chloride 10 mg Tablet 10 mg PO TID levetiracetam 500 mg Tablet 1,000 mg PO BID sotalol 80 mg Tablet 120 mg PO BID clopidogrel [Plavix] 75 mg Tablet 75 mg PO DAILY amlodipine 5 mg Tablet 5 mg PO DAILY hydrocodone-acetaminophen 10-325 mg Tablet 1 tablet PO Q48H PRN (Reason: Pain (Scale Score 7-10)) tamsulosin 0.4 mg Capsule 0.4 mg PO BID insulin aspart U-100 100 unit/mL Solution 2 unit SUBCUT QAM pantoprazole 40 mg Tablet,Delayed Release (Dr/Ec) 40 mg PO QAM metformin 1,000 mg Tablet 1,000 mg PO BIDWMEAL brimonidine 0.2 % Drops 1 drp EACH EYE BID pyridoxine (vitamin B6) 50 mg Tablet 50 mg PO DAILY aspirin [Aspirin Childrens] 81 mg Tablet,Chewable 81 mg PO Q48H hydroxychloroquine 200 mg Tablet 200 mg PO BID finasteride 5 mg Tablet 5 mg PO DAILY pregabalin 100 mg Capsule 100 mg PO QAM pregabalin 100 mg Capsule 200 mg PO HS Virt-Neeta 2.2-25-1 mg Tablet 1 tablet PO DAILY cholecalciferol (vitamin D3) 25 mcg (1,000 unit) Tablet 50 mcg PO DAILY sitagliptin phosphate 100 mg Tablet 100 mg PO DAILY Pancreaze 10,500-35,500- 61,500 unit Capsule,Delayed Release(Dr/Ec) 3 cap PO TID Rx Instructions: administer with meals and/or snacks- to start on 01/02/2023 magnesium oxide 400 mg magnesium Tablet 400 mg PO DAILY sennosides-docusate sodium [Senokot-S] 8.6-50 mg Tablet 1 tab PO HS Qty: 14 0RF cyanocobalamin (vitamin B-12) 1,000 mcg/mL Solution 1,000 mcg IM MONTHLY Qty: 0 0RF Follow-up/Referrals: Eliane Hsu MD [Primary Care Provider, Rheumatology]
--- OUTSIDE RECORDS SUMMARY | 2025-01-08 05:07 | XMS_ITS | Continuity of Care Document ---
Author Name [facility] Organization [facility] Care Team Providers Care Advertiser Name Role Phone [facility] Unavailable Unavailable Problems Combined list of problems from Department of Defense and [facility] Affairs facilities. It does not include entries that were removed or entered in error. Problem Status Onset Date Problem Type Date of Resolution Comments Source Atrial fibrillation Active Condition [facility] Benign essential hypertension Active Condition [facility] Benign prostatic hyperplasia Active Condition [facility] Bunion Active Condition [facility] Cerebral infarction Active Condition [facility] Cyst Active Condition [facility] Gastroesophageal reflux disease Active Condition [facility] Hyperlipidemia Active Condition [facility] Knee pain (SNOMED CT [id number]) Active Condition [facility] Osteoarthritis of lumbar spine Active Condition [facility] Osteoarthritis of shoulder Active Condition [facility] Peripheral nerve disease Active Condition [facility] Rheumatoid arthritis Active Condition [facility] Seizure Active Condition [facility] Type 2 diabetes mellitus Active Condition [facility] Clostridium difficile colitis Inactive Condition 04/01/2022 [facility] DIAPHRAGMATIC HERNIA Inactive Condition 10/10/2023 [facility] OSTEOARTHROS NOS-UNSPEC Inactive Condition 10/10/2023 [facility] PEPTIC ULCER NOS Inactive Condition 10/10/2023 [facility] ROUTINE MEDICAL EXAM Inactive Condition 04/01/[address] [facility] Diagnosis: ICD-10-CM I63.9 Cerebral infarction, unspecified Active Diagnosis [facility] Diagnosis: ICD-10-CM I48.0 Paroxysmal atrial fibrillation Active Diagnosis [facility] Diagnosis: ICD-10-CM M25.569 Pain in unspecified knee Active Diagnosis [facility] Diagnosis: ICD-10-CM K08.409 Partial loss of teeth, unspecified cause, unspecified class Active Diagnosis [facility] Diagnosis: ICD-10-CM R21 Rash and other nonspecific skin eruption Active Diagnosis [facility] Diagnosis: ICD-10-CM M25.512 Pain in left shoulder Active Diagnosis [facility] Diagnosis: ICD-10-CM Z04.89 Encounter for examination and observation for oth reasons Active Diagnosis [facility] Diagnosis: ICD-10-CM Z00.00 Encntr for general adult medical exam w/o abnormal findings Active Diagnosis [facility] Diagnosis: ICD-10-CM M54.50 Low back pain, unspecified Active Diagnosis [facility] Diagnosis: ICD-10-CM M06.9 Rheumatoid arthritis, unspecified Active Diagnosis [facility] Diagnosis: ICD-10-CM M25.562 Pain in left knee Active Diagnosis [facility] Medications Combined list of outpatient medications [...] ORAL ACTIVE LETITIA STAUFFER BRIGHTY R 2022 [facility] AMYLASE 24,000UNIT/ LIPASE 5,000UNIT/P ROTEASE 17,000UNIT CAP,EC TAKE 3 CAPSULES BY MOUTH THREE TIMES A DAY BEFORE MEALS ORAL ACTIVE LETITIA STAUFFER NEREYDA R 2021 [facility] APIXABAN 5MG TAB TAKE ONE TABLET BY MOUTH TWICE A DAY ORAL ACTIVE LETITIA STAUFFER LBY R 2022 [facility] ATORVASTATI N [place] 40MG TAB TAKE ONE-HALF TABLET BY MOUTH EVERY EVENING ORAL ACTIVE YOKASTA BOOEKR MD 2019 [facility] BETHANECHOL CL 25MG TAB TAKE TWO TABLETS BY MOUTH THREE TIMES A DAY ORAL ACTIVE LETITIA STAUFFER R 2021 [facility] CHLORHEXIDI NE GLUCONATE 4% LIQUID,TOP APPLY MODERATE AMOUNT TO AFFECTED AREA(S) DIRECTED (TOPICAL USE ONLY) AVOID CONTACT WITH EYES. CHIARA TRINIDAD INUED BY PROVIDE R 12/07/2023 [id number] SILKE RENAE MM 2023 120 [facility] DIVIS[facility] N CLOPIDOGREL BISULFATE 75MG TAB TAKE ONE TABLET BY MOUTH ONCE A DAY ORAL ACTIVE LETITIA STAUFFER R 2022 [facility] DIAZEPAM 5MG TAB TAKE ONE TABLET BY MOUTH ONE-TIME FOR ANXIETY AVOID TAKING WITH GRAPEFRU IT JUICE. PLEASE TAKE 30-60 MINUTES PRIOR TO MRI. ORAL 02/20/2024 [id number] LETITIA STAUFFER R 2023 1 [facility] N FINASTERIDE 5MG TAB TAKE ONE TABLET BY MOUTH ONCE A DAY ORAL ACTIVE LETITIA STAUFFER R 2021 [facility] HYDROCODONE 7.5MG/ACETA MINOPHEN 325MG TAB TAKE ONE TABLET BY MOUTH EVERY 6 HOURS NEEDED ORAL ACTIVE YOKASTA BOOKER MD 2017 [facility] INSULIN,ASP ART,HUMAN 100 UNT/ML INJ INJECT 2 UNITS UNDER THE SKIN THREE TIMES A DAY BEFORE MEALS SUBCUT ANEOUS ACTIVE LETITIA STAUFFER R 2021 [facility] LATANOPROST 0.005% SOLN,OPH INSTILL 1 DROP IN BOTH EYES EVERY EVENING OPHTHA LMIC ACTIVE YOKASTA BOOKER MD 2017 [facility] LEVETIRACET AM 500MG TAB TAKE TWO TABLETS BY MOUTH TWICE A DAY ORAL ACTIVE LETITIA STAUFFER R 2022 [facility] MAGNESIUM OXIDE 400MG TAB TAKE ONE TABLET BY MOUTH ONCE A DAY ORAL ACTIVE LETITIA STAUFFER R 2022 [facility] METFORMIN HCL 1000MG/SAXA GLIPTIN 2.5MG 24 HR TAB,SA TAKE TWO TABLETS BY MOUTH ONCE A DAY ORAL ACTIVE LETITIA STAUFFER LBY R 2022 [facility] METHYLPREDN ISOLONE (methylpred nisolone), 4 MG, TAB DS PK, ORAL, [employer], 21 ea. DOSE-PACK Active [id number] 2023 21 [facility] PANTOPRAZOL E NA 40MG TAB,EC TAKE ONE TABLET BY MOUTH EVERY MORNING ORAL ACTIVE YOKASTA BOOKER MD 2015 [facility] PREGABALIN 75MG CAP,ORAL TAKE 1 CAPSULE BY MOUTH AT BEDTIME ORAL ACTIVE EH,LETITIA LBY R 2021 [facility] SOTALOL TAB TAKE BY MOUTH TWICE A DAY ORAL ACTIVE STAUFFERLETITIAY R 2021 [facility] TAMSULOSIN HCL 0.4MG CAP TAKE 1 CAPSULE BY MOUTH EVERY EVENING ORAL ACTIVE YOKASTA BOOKER MD 2018 [facility] Allergies, Adverse Reactions, Alerts Combined list of allergies from [facility] and Veterans Affairs facilities. It does not include entries that were removed or entered in error. Substance Category Reaction Severity Reaction type Status Date Reported Comments Source METOCLOPRAMID E Drug allergy (disorder) Renal failure syndrome active 3 [facility] PENICILLIN Propensity to adverse reactions to drug (finding) active 7 [facility] PENICILLINS Drug allergy (disorder) active 7 [facility] REGLAN Propensity to adverse reactions to drug (finding) Renal failure syndrome active 3 [facility] Propensity to adverse reactions to drug (finding) active 7 [facility] Immunizations Combined list of available immunizations from the Department of [facility] and [facility] Affairs facilities. Immunization Series Date Given Administered By Site Reaction Lot Number CVX Code Drug Benefits Assistant Status Comments Source COVID-19 (MODERNA), MRNA, LNP-S, PF, 50 MCG/0.5 ML (AGES 12+ YEARS) 2 2023 312 complet ed HISTORICA L INFORMATI ON - FROM OTHER [facility] N INFLUENZA, ADJUVANTED, TRIVALENT, PF 6 2023 168 complet ed HISTORICA L INFORMATI ON - FROM OTHER [facility], [facility] N ZOSTER RECOMBINANT 2 2022 RACHEL WOODRUFF RIGHT DELTO ID [id number] 187 complet ed ADMINISTE RED AT [facility] ZOSTER RECOMBINANT 2022 KELVIN LEVY RIGHT DELTO ID [id number] 187 complet ed ADMINISTE RED AT [facility] INFLUENZA, UNSPECIFIED FORMULATION 2021 88 complet ed HISTORICA L INFORMATI ON - SOURCE UNSPECIFI [facility] N COVID-19 ([employer]), MRNA, LNP-S, BIVALENT, PF, 30 MCG/0.3 ML DOSE 1 2021 300 complet ed HISTORICA L INFORMATI ON - FROM OTHER [facility], [facility] N INFLUENZA VACCINE, QUADRIVALENT, ADJUVANTED 5 2021 205 complet ed HISTORICA L INFORMATI ON - FROM OTHER [facility] N COVID-19 ([facility]), MRNA, LNP-S, PF, 30 MCG/0.3 ML DOSE, DAWN-SUCROSE (AGES 12+ YEARS) 4 2021 217 complet ed HISTORICA L INFORMATI ON - FROM OTHER [facility], [facility] N INFLUENZA VACCINE, QUADRIVALENT, ADJUVANTED 4 2020 205 complet ed HISTORICA L INFORMATI ON - [facility] COVID-[facility] ([employer]), MRNA, LNP-S, PF, 30 MCG/0.3 ML DOSE 3 2020 208 complet ed HISTORICA L INFORMATI ON - [facility] COVID-19 ([employer]), MRNA, LNP-S, PF, 30 MCG/0.3 ML DOSE 2 03/26/ 2021 208 complet ed HISTORICA L INFORMATI ON - FROM OTHER REGISTRY, [facility] COVID-19 ([facility]), MRNA, LNP-S, PF, 30 MCG/0.3 ML DOSE 1 2020 208 complet ed HISTORICA L INFORMATI ON - FROM OTHER REGISTRY, [facility] N INFLUENZA, UNSPECIFIED FORMULATION 2019 88 complet ed [facility] N INFLUENZA, RECOMBINANT, QUADRIVALENT, INJECTABLE, PRESERVATIVE FREE 3 2019 185 complet ed HISTORICA L INFORMATI ON - FROM OTHER REGISTRY, [facility] N HEP A-HEP B 1 2019 104 complet ed HISTORICA L INFORMATI ON - FROM OTHER REGISTRY, [facility] N TDAP 1 2019 115 complet ed HISTORICA L INFORMATI ON - FROM OTHER REGISTRY, [facility] INFLUENZA, HIGH DOSE SEASONAL 2 2018 135 complet ed HISTORICA L INFORMATI ON - FROM OTHER REGISTRY, [facility] N INFLUENZA, UNSPECIFIED FORMULATION 2018 88 complet ed [facility] N INFLUENZA, INJECTABLE, QUADRIVALENT, PRESERVATIVE FREE 1 2018 150 complet ed HISTORICA L INFORMATI ON - FROM OTHER REGISTRY, [facility] N INFLUENZA, UNSPECIFIED FORMULATION 2017 88 complet ed [facility] PNEUMOCOCCAL POLYSACCHARID E PPV23 2016 33 complet ed [facility] INFLU[facility], UNSPECIFIED FORMULATION 2016 88 complet ed ILLINOI S TDAP 1 2016 115 complet ed HISTORICA L INFORMATI ON - FROM OTHER REGISTRY, [facility] N PNEUMOCOCCAL CONJUGATE PCV 13 2016 133 complet ed by non nc pcp [facility] N INFLUENZA, UNSPECIFIED FORMULATION 2016 88 complet ed [facility] N INFLUENZA, HIGH DOSE SEASONAL 1 2015 135 complet ed HISTORICA L INFORMATI ON - FROM OTHER REGISTRY, [facility] N PNEUMOCOCCAL CONJUGATE PCV 13 1 2015 133 complet ed HISTORICA L INFORMATI ON - FROM OTHER REGISTRY, [facility] N TDAP 2013 115 complet ed [facility] N Results Combined list of recent chemistry, hematology and other laboratory results from Department of Defense and Veterans Affairs, ranging from 15 months to all on record, depending upon the facility. Order Name Results Value Reference Range Date Interpretation Specimen Comments Source CBC LEUKOCYTES [#/VOLUME] IN BLOOD BY AUTOMATED COUNT 4.7 10*3/u L 3.6 - 11.2 11/06 Specimen Type: BLOOD No comment entered. Ordering Provider: CHRISSY RENAE MM Report Released Date/Time: Nov 07, 2023 10:50 AM Reporting Lab: [address] [phone] Performing Lab: [phone] [place] [address] CBC ERYTHROCYTE S [#/VOLUME] IN BLOOD BY AUTOMATED COUNT 4.60 10*6/u L 4.10 - 5.70 11/06 Specimen Type: BLOOD No comment entered. Ordering Provider: CHRISSY RENAE MM Report Released Date/Time: Nov 07, 2023 10:50 AM Reporting Lab: [address] [address] Performing Lab: [address] [address] [facility] CBC HEMOGLOBIN [MASS/VOLUM E] IN BLOOD 12.2 g/dL 13.1 - 16.8 11/06 L Specimen Type: BLOOD No comment entered. Ordering Provider: CHRISSY RENAE MM Report Released Date/Time: Nov 07, 2023 10:50 AM Reporting Lab: [address] [address] Performing Lab: [address] [address] [facility] CBC HEMATOCRIT [VOLUME FRACTION] OF BLOOD 37.8 38.2 - 48.4 11/06 L Specimen Type: BLOOD No comment entered. Ordering Provider: CHRISSY RENAE MM Report Released Date/Time: Nov 07, 2023 10:50 AM Reporting Lab: [address] [address] Performing Lab: [address] [phone] [place] [address] CBC MCV [ENTITIC VOLUME] BY AUTOMATED COUNT 82.2 fL 80.0 - 100.0 11/06 Specimen Type: BLOOD No comment entered. Ordering Provider: CHRISSY RENAE MM Report Released Date/Time: Nov 07, 2023 10:50 AM Reporting Lab: [address] [address] Performing Lab: [address] [phone] [place] [address] CBC MCH [ENTITIC MASS] BY AUTOMATED COUNT 26.5 pg 27.0 - 34.0 11/06 L Specimen Type: BLOOD No comment entered. Ordering Provider: CHRISSY RENAE MM Report Released Date/Time: Nov 07, 2023 10:50 AM Reporting Lab: [address] [phone] Performing Lab: [address] [phone] [place] [address] CBC MCHC [MASS/VOLUM E] BY AUTOMATED COUNT 32.3 g/dL 33.0 - 36.0 11/06 L Specimen Type: BLOOD No comment entered. Ordering Provider: CHRISSY RENAE MM Report Released Date/Time: Nov 07, 2023 10:50 AM Reporting Lab: [address] [address] Performing Lab: [address] [phone] [place] [address] CBC PLATELETS [#/VOLUME] IN BLOOD BY AUTOMATED COUNT 340 10*3/u L 150 - 400 11/06 Specimen Type: BLOOD No comment entered. Ordering Provider: CHRISSY RENAE MM Report Released Date/Time: Nov 07, 2023 10:50 AM Reporting Lab: [address] [address] Performing Lab: [address] [address] [facility] CBC PLATELET MEAN VOLUME [ENTITIC VOLUME] IN BLOOD BY AUTOMATED COUNT 8.6 fL 7.5 - 11.2 11/06 Specimen Type: BLOOD No comment entered. Ordering Provider: CHRISSY RENAE MM Report Released Date/Time: Nov 07, 2023 10:50 AM Reporting Lab: [address] [phone] Performing Lab: [address] [address] [facility] CBC ERYTHROCYTE DISTRIBUTIO N WIDTH [RATIO] BY AUTOMATED COUNT 16.4 11.8 - 15.1 11/06 H Specimen Type: BLOOD No comment entered. Ordering Provider: CHRISSY RENAE MM Report Released Date/Time: Nov 07, 2023 10:50 AM Reporting Lab: [address] [address] Performing Lab: [address] [address] [facility] CBC LYMPHOCYTES /100 LEUKOCYTES IN BLOOD BY AUTOMATED COUNT 37 11/06 Specimen Type: BLOOD No comment entered. Ordering Provider: CHRISSY RENAE MM Report Released Date/Time: Nov 07, 2023 10:50 AM Reporting Lab: [address] [address] Performing Lab: [address] [address] [facility] CBC MONOCYTES/1 00 LEUKOCYTES IN BLOOD BY AUTOMATED COUNT 8 11/06 Specimen Type: BLOOD No comment entered. Ordering Provider: CHRISSY RENAE MM Report Released Date/Time: Nov 07, 2023 10:50 AM Reporting Lab: [facility] [address] [facility] [address] Performing Lab: [facility] [address] [place], [place] [id number] [address] CBC NEUTROPHILS /100 LEUKOCYTES IN BLOOD BY AUTOMATED COUNT 51 11/06 Specimen Type: BLOOD No comment entered. Ordering Provider: CHRISSY RENAE MM Report Released Date/Time: Nov 07, 2023 10:50 AM Reporting Lab: [place] [phone] Performing Lab: [place] [id number] CBC EOSINOPHILS /100 LEUKOCYTES IN BLOOD BY AUTOMATED COUNT 3 11/06 Specimen Type: BLOOD No comment entered. Ordering Provider: CHRISSY RENAE MM Report Released Date/Time: Nov 07, 2023 10:50 AM Reporting Lab: [place] [address] Performing Lab: [address] [phone] CBC BASOPHILS/1 00 LEUKOCYTES IN BLOOD BY AUTOMATED COUNT 1 11/06 Specimen Type: BLOOD No comment entered. Ordering Provider: CHRISSY RENAE MM Report Released Date/Time: Nov 07, 2023 10:50 AM Reporting Lab: [facility] [address] [place] [phone] Performing Lab: [address] CBC LYMPHOCYTES [#/VOLUME] IN BLOOD BY AUTOMATED COUNT 1.74 10*3/u L 0.77 - 4.50 11/06 Specimen Type: BLOOD No comment entered. Ordering Provider: CHRISSY RENAE MM Report Released Date/Time: Nov 07, 2023 10:50 AM Reporting Lab: [place] [phone] Performing Lab: [address] [address] [facility] CBC MONOCYTES [#/VOLUME] IN BLOOD BY AUTOMATED COUNT 0.39 10*3/u L 0.19 - 0.80 11/06 Specimen Type: BLOOD No comment entered. Ordering Provider: CHRISSY RENAE MM Report Released Date/Time: Nov 07, 2023 10:50 AM Reporting Lab: [place] [phone] Performing Lab: [address] [address] [facility] CBC NEUTROPHILS [#/VOLUME] IN BLOOD BY AUTOMATED COUNT 2.35 10*3/u L 2.10 - 8.00 11/06 Specimen Type: BLOOD No comment entered. Ordering Provider: CHRISSY RENAE MM Report Released Date/Time: Nov 07, 2023 10:50 AM Reporting Lab: [address] [address] Performing Lab: [address] [address] [facility] CBC EOSINOPHILS [#/VOLUME] IN BLOOD BY AUTOMATED COUNT 0.12 10*3/u L 0.00 - 0.60 11/06 Specimen Type: BLOOD No comment entered. Ordering Provider: CHRISSY RENAE MM Report Released Date/Time: Nov 07, 2023 10:50 AM Reporting Lab: [place] [phone] Performing Lab: [address] [phone] [facility] CBC BASOPHILS [#/VOLUME] IN BLOOD BY AUTOMATED COUNT 0.04 10*3/u L 0.00 - 0.20 11/06 Specimen Type: BLOOD No comment entered. Ordering Provider: CHRISSY RENAE MM Report Released Date/Time: Nov 07, 2023 10:50 AM Reporting Lab: [address] [address] Performing Lab: [facility] [address] [place] [phone] [facility] BASIC METABOLIC PANEL CREATININE [MASS/VOLUM E] IN SERUM OR PLASMA 1.29 mg/dL 0.7 - 1.3 11/06 Specimen Type: PLASMA Comment: No hemolysis noted. Ordering Provider: CHRISSY RENAE MM Report Released Date/Time: Nov 07, 2023 10:50 AM Reporting Lab: [address] [address] Performing Lab: [address] [address] [facility] BASIC METABOLIC PANEL UREA NITROGEN [MASS/VOLUM E] IN SERUM OR PLASMA 17.7 mg/dL 9.0 - 25.0 11/06 Specimen Type: PLASMA Comment: No hemolysis noted. Ordering Provider: CHRISSY RENAE MM Report Released Date/Time: Nov 07, 2023 10:50 AM Reporting Lab: [address] [address] Performing Lab: [address] [address] [facility] BASIC METABOLIC PANEL GLUCOSE [MASS/VOLUM E] IN SERUM OR PLASMA 136 mg/dL 72 - 99 11/06 H Specimen Type: PLASMA Comment: No hemolysis noted. Ordering Provider: CHRISSY RENAE MM Report Released Date/Time: Nov 07, 2023 10:50 AM Reporting Lab: [address] [address] Performing Lab: [address] [address] [facility] BASIC METABOLIC PANEL SODIUM [MOLES/VOLU ME] IN SERUM OR PLASMA 138 meq/L 136 - 145 11/06 Specimen Type: PLASMA Comment: No hemolysis noted. Ordering Provider: CHRISSY RENAE MM Report Released Date/Time: Nov 07, 2023 10:50 AM Reporting Lab: [facility] [address] [place] [phone] Performing Lab: [facility] [address] [place] [phone] [facility] BASIC METABOLIC PANEL POTASSIUM [MOLES/VOLU ME] IN SERUM OR PLASMA 3.5 meq/L 3.5 - 5 11/06 Specimen Type: PLASMA Comment: No hemolysis noted. Ordering Provider: CHRISSY RENAE MM Report Released Date/Time: Nov 07, 2023 10:50 AM Reporting Lab: [address] [address] Performing Lab: [address] [address] [facility] BASIC METABOLIC PANEL CHLORIDE [MOLES/VOLU ME] IN SERUM OR PLASMA 103 meq/L 98 - 107 11/06 Specimen Type: PLASMA Comment: No hemolysis noted. Ordering Provider: CHRISSY RENAE MM Report Released Date/Time: Nov 07, 2023 10:50 AM Reporting Lab: [address] [address] Performing Lab: [address] [address] [facility] BASIC METABOLIC PANEL CARBON DIOXIDE, TOTAL [MOLES/VOLU ME] IN SERUM OR PLASMA 25 meq/L 22 - 31 11/06 Specimen Type: PLASMA Comment: No hemolysis noted. Ordering Provider: CHRISSY RENAE MM Report Released Date/Time: Nov 07, 2023 10:50 AM Reporting Lab: [address] [address] Performing Lab: [address] [address] [facility] BASIC METABOLIC PANEL CALCIUM [MASS/VOLUM E] IN SERUM OR PLASMA 10.2 mg/dL 8.4 - 10.4 11/06 Specimen Type: PLASMA Comment: No hemolysis noted. Ordering Provider: CHRISSY RENAE MM Report Released Date/Time: Nov 07, 2023 10:50 AM Reporting Lab: [address] [address] Performing Lab: [address] [address] [facility] BASIC METABOLIC PANEL GLOMERULAR FILTRATION RATE/1.73 SQ M.PREDICTED [VOLUME RATE/AREA] IN SERUM, PLASMA OR BLOOD BY CREATININE- BASED FORMULA (CKD-EPI 2020) 58.2 60 11/06 Specimen Type: PLASMA Comment: No hemolysis noted. Ordering Provider: CHRISSY RENAE MM Report Released Date/Time: Nov 07, 2023 10:50 AM Reporting Lab: [address] [address] Performing Lab: [address] [address] [facility] Vital Signs Combined list of inpatient and outpatient Vital Signs from Department of Defense and Veterans Affairs, ranging from 12 months to all on record, depending upon the facility. Vital Sign Value Date Comments Source SYSTOLIC BLOOD PRESSURE 126 09/01/2024 15:01:00 [facility] DIASTOLIC BLOOD PRESSURE 79 09/01/2024 15:01:00 [facility] PULSE OXIMETRY 98 09/01/2024 15:01:00 [facility] WEIGHT 171.6 09/01/2024 15:01:00 [facility] BMI 22 kg/m2 09/01/2024 15:01:00 [facility] PAIN 8 09/01/2024 15:01:00 [facility] TEMPERATURE 97.5 09/01/2024 15:01:00 [facility] PULSE 76 09/01/2024 15:01:00 [facility] RESPIRATION 16 09/01/2024 15:01:00 [facility] SYSTOLIC BLOOD PRESSURE 132 01/16/2024 11:24:44 [facility] DIASTOLIC BLOOD PRESSURE 78 01/16/2024 11:24:44 [facility] PULSE OXIMETRY 97 01/16/2024 11:24:44 [facility] WEIGHT 176 01/16/2024 11:24:44 [facility] BMI 23 kg/m2 01/16/2024 11:24:44 [facility] PAIN 8 01/16/2024 11:24:44 [facility] HEIGHT 74 01/16/2024 11:24:44 [facility] TEMPERATURE 97.8 01/16/2024 11:24:44 [facility] PULSE 85 01/16/2024 11:24:44 [facility] RESPIRATION 18 01/16/2024 11:24:44 [facility] Encounters Combined list of: 1) Encounters from [facility] facilities going backup to the last 18 months, not all [place] inpatient encounters are included; 2) Encounters from the Department of Defense facilities going backup to 280 months. Location Location Details Encounter Type Encounter Number Reason For Visit Attending Provider ADM Date DC Date Status Disposition Source [facility] [facility] PRO PHONE CALL 5-10 MIN 66486-9.65 [id number] Diagnos is: ICD-10- CM M25.562 Pain in left knee ANA,CAR A A 07/[address] [facility] Outpatient Encounter [id number] [id number] 07/[address] [facility] HC PRO PHONE CALL 11-20 MIN 95880-9.65 [id number] 4 Diagnos is: ICD-10- CM M54.50 Low back pain, unspeci fied GABI PEREZ A A 07/[address] [facility] HC PRO PHONE CALL 11-20 MIN 85014-1.65 [id number] 5 Diagnos is: ICD-10- CM M25.562 Pain in left knee MARY,STA CY L 07/[address] [facility] Outpatient Encounter 77331-6.65 [id number] MARYSTA CY L 07/[address] [facility] Outpatient Encounter 35238-6.65 [id number] 4 07/[address] [facility] HC PRO PHONE CALL 21-30 MIN 33772-1.65 [id number] 4 Diagnos is: ICD-10- CM M25.562 Pain in left knee MARY,STA CY L 07/[address] [facility] PT EDUCATION NOC INDIVID 60691-0.65 [id number] 8 Diagnos is: ICD-10- CM I63.9 Cerebra l infarct ion, unspeci fied THOMPSON EPPERSON M 07/[address] [facility] PROGRAM INTAKE ASSESSMENT 51454-4.65 [id number] 6 Diagnos is: ICD-10- CM M25.562 Pain in left knee MANDORCA,L FAISAL L 08/[address] [facility] Outpatient Encounter 43438-5.65 [id number] 1 08/[address] [facility] Outpatient Encounter 20899-6.65 [id number] 4 08/[address] [facility] Outpatient Encounter 05670-8.65 [id number] 2 NELLIE KRAFT D 08/[address] [facility] HC PRO PHONE CALL 11-20 MIN 51183-5.65 [id number] 2 Diagnos is: ICD-10- CM M54.50 Low back pain, unspeci fied POORNIMAGIN A L 08/[address] [facility] Outpatient Encounter 69550-0.65 [id number] 4 EM PETIT L 08/[address] [facility] HC PRO PHONE CALL 21-30 MIN 01522-0.65 [id number] 3 Diagnos is: ICD-10- CM I63.9 Cerebra l infarct ion, unspeci fied ANACAR A A 08/[address] [facility] PROGRAM INTAKE ASSESSMENT 23544-6.65 [id number] 8 Diagnos is: ICD-10- CM M06.9 Rheumat oid arthrit is, unspeci fied Margarita VENEGAS FAISAL L 08/[address] [facility] Outpatient Encounter 94007-4.65 [id number] NELLIE KRAFT D 09/[address] [facility] REMOVABLE PROSTHODON TIC PROC 89515-4.65 [id number] 2 Diagnos is: ICD-10- CM K08.409 Partial loss of teeth, unspeci fied cause, unspeci fied class DAE SO 09/[address] [facility] HC PRO PHONE CALL 21-30 MIN 82468-4.65 [id number] 0 Diagnos is: ICD-10- CM M54.50 Low back pain, unspeci fied POORNIMA,GIN A L 09/[address] [facility] Outpatient Encounter 33022-8.65 [id number] 2 LASHA NOGUERA 09/[address] [facility] HC PRO PHONE CALL 5-10 MIN 63266-6.65 [id number] 6 Diagnos is: ICD-10- CM I63.9 Cerebra l infarct ion, unspeci fied ANA,CAR A A 09/[address] [facility] Outpatient Encounter 29272-8.65 [id number] 4 09/[address] [facility] HC PRO PHONE CALL 21-30 MIN 60531-0.65 [id number] 1 Diagnos is: ICD-10- CM I63.9 Cerebra l infarct ion, unspeci fied ANA,CAR A A 09/[address] [facility] Outpatient Encounter 72641-8.65 [id number] 0 TIFFANY IRVIN 09/[address] [facility] REMOVABLE PROSTHODON TIC PROC 55187-0.65 [id number] 5 Diagnos is: ICD-10- CM K08.409 Partial loss of teeth, unspeci fied cause, unspeci fied class DAE SO 09/[address] [facility] Outpatient Encounter [id number] [id number] 3 10/[address] [facility] Outpatient Encounter 07308-5.65 [id number] 5 ESTHER LEVY 10/[address] [facility] Outpatient Encounter 40531-5.65 [id number] 7 10/07 [facility] Outpatient Encounter 39805-1.65 [id number] Diagnos is: ICD-10- CM Z00.00 Encntr for general adult medical exam w/o abnorma l finding s ELIJAH STAUFFER BY Sana 10/07 [facility] REMOVABLE PROSTHODON TIC PROC 86324-8.65 [id number] 2 Diagnos is: ICD-10- CM K08.409 Partial loss of teeth, unspeci fied cause, unspeci fied class DAE SO 10/[address] [facility] Outpatient Encounter 69136-2.65 [id number] 0 10/[address] [facility] Outpatient Encounter 29892-9.65 [id number] 0 10/[address] [facility] Outpatient Encounter 23237-5.65 [id number] 4 10/[address] [facility] HC PRO PHONE CALL 21-30 MIN 39100-3.65 [id number] 9 Diagnos is: ICD-10- CM I63.9 Cerebra l infarct ion, unspeci fied ANA,CAR A A 10/[address] [facility] REMOVABLE PROSTHODON TIC PROC 14621-0.65 [id number] 9 Diagnos is: ICD-10- CM K08.409 Partial loss of teeth, unspeci fied cause, unspeci fied class DAE SO 10/28 [facility] Outpatient Encounter 59149-6.65 [id number] ELIJAH STAUFFER BY Sana 11/04 [facility] OFFICE O/P NEW LOW 30 MIN 59572-2.65 [id number] 7 Diagnos is: ICD-10- CM R21 Rash and other nonspec ific skin eruptio n TATA LUU I A 11/[address] [facility] Outpatient Encounter 29307-3.65 [id number] 3 ELIJAH STAUFFER BY Sana 11/[address] [facility] Outpatient Encounter 31523-5.65 [id number] 5 11/[address] [facility] Outpatient Encounter 69777-0.65 [id number] 7 11/[address] [facility] Outpatient Encounter 03269-8.65 [id number] 0 Diagnos is: ICD-10- CM Z04.89 Encount er for examina tion and observa tion for oth reasons CARLOS MINOR P 11/[address] [facility] REMOVABLE PROSTHODON TIC PROC 40034-7.65 [id number] 9 Diagnos is: ICD-10- CM K08.409 Partial loss of teeth, unspeci fied cause, unspeci fied class DAE SO 11/[address] [facility] Outpatient Encounter 43164-4.65 [id number] 8 EM PETIT 11/[address] [facility] Outpatient Encounter 59405-4.65 [id number] 2 EM PETIT 11/[address] [facility] [place] [address]-2.65 [id number] 8 Diagnos is: ICD-10- CM K08.409 Partial loss of teeth, unspeci fied cause, unspeci fied class DAE SO 12/[address] [facility] THERAPEUTI C EXERCISES 84743-1.65 [id number] 0 Diagnos is: ICD-10- CM M25.512 Pain in left shoulde r CAROLINA HOWELL 12/04 [facility] Outpatient Encounter 19707-6.65 [id number] SHERRY GONGORA 12/04 [facility] Outpatient Encounter 32631-0.65 [id number] 4 EM PETIT 12/[address] [facility] OFFICE O/P NEW MOD 45 MIN 12077-7.65 [id number] 7 Diagnos is: ICD-10- CM I48.0 Paroxys mal atrial fibrill ateula LOUISE CUBA 12/[address] [facility] Outpatient Encounter 17251-9.65 [id number] 3 EM PETIT 12/[address] [facility] Outpatient Encounter 74234-7.65 [id number] 0 EM PETIT L 12/10 [facility] Outpatient Encounter 55308-0.65 [id number] 1 12/[address] [facility] REMOVABLE PROSTHODON TIC PROC 22154-9.65 [id number] 3 Diagnos is: ICD-10- CM K08.409 Partial loss of teeth, unspeci fied cause, unspeci fied class DAE SO 12/19 [facility] Outpatient Encounter 22405-5.65 [id number] 8 12/22 [facility] Outpatient Encounter 01863-9.65 [id number] 8 12/[address] [facility] Outpatient Encounter 86783-5. [id number] 12/[address] [facility] Outpatient Encounter 21044-2 [id number] 8 12/[address] [facility] PT EDUCATION NOC INDIVID 20416-7. [id number] 2 Diagnos is: ICD-10- CM I63.9 Cerebra l infarct ion, unspeci fied ANACAR A A 01/[address] [facility] OFFICE O/P EST SF 10 MIN 34624-0.65 [id number] 4 Diagnos is: ICD-10- CM R21 Rash and other nonspec ific skin eruptio n Lucia HONEYCUTT 01/[address] [facility] REMOVABLE PROSTHODON TIC PROC 43097-4.65 [id number] 0 Diagnos is: ICD-10- CM K08.409 Partial loss of teeth, unspeci fied cause, unspeci fied class DAE SO 01/[address] [facility] Outpatient Encounter 12506-1.65 [id number] 3 EM PETIT 01/[address] [facility] Outpatient Encounter 38946-9.65 [id number] 7 EM PETIT 01/[address] [facility] Outpatient Encounter 24703-5.65 [id number] 0 01/23 [facility] Outpatient Encounter 58573-8. [id number] 9 02/[address] [facility] REMOVABLE PROSTHODON TIC PROC 01016-5 [id number] 7 Diagnos is: ICD-10- CM K08.409 Partial loss of teeth, unspeci fied cause, unspeci fied class DAE SO 02/[address] [facility] Outpatient Encounter 39671-4 [id number] 6 TIFFANY IRVIN 02/20 [facility] THERAPEUTI C EXERCISES 05552-7. [id number] Diagnos is: ICD-10- CM M25.569 Pain in unspeci fied knee MINA SHER 02/27 [facility] Outpatient Encounter 22899-6. [id number] 1 03/[address] [facility] Outpatient Encounter 69650-5. [id number] 7 03/[address] [facility] Outpatient Encounter 87446-3.65 [id number] 0 03/[address] [facility] Outpatient Encounter 23017-1. [id number] 0 03/16 [facility] Outpatient Encounter 26057-6.65 [id number] 7 SAMSON RAMIREZ 03/30 [facility] Outpatient Encounter 23889-6.65 [id number] 0 GABI PEREZ A 04/[address] [facility] Outpatient Encounter 57928-6.65 [id number] 1 04/03 [facility] Outpatient Encounter 95232-0.65 [id number] 9 04/[address] [facility] PT EDUCATION NOC INDIVID 37606-8.65 [id number] 9 Diagnos is: ICD-10- CM I63.9 Cerebra l infarct ion, unspeci fied GABI PEREZ A 04/27 [facility] Outpatient Encounter 66869-4.65 [id number] 0 PETIT,EV ALEXISAYLEEN Avila 04/29 [facility] Outpatient Encounter 58644-3.65 [id number] 2 05/25 [facility] Outpatient Encounter 16111-9.65 [id number] 3 06/10 [facility] Outpatient Encounter 27109-5.65 [id number] 9 06/16 [facility] Outpatient Encounter 86829-0.65 [id number] 2 06/16 [facility] Outpatient Encounter 13174-9.65 [id number] 4 07/14 [facility] Outpatient Encounter 62591-3.65 [id number] 2 07/[address] [facility] Outpatient Encounter 12040-6.65 [id number] 4 08/[address] [facility] HLTH BHV ASSMT/REAS SESSMENT 05561-2.65 [id number] 4 Diagnos is: ICD-10- CM I63.9 Cerebra l infarct ion, unspeci fied ANACAR A A 09/[address] [facility] Outpatient Encounter 91995-1.65 [id number] 4 09/[address] [facility] Outpatient Encounter 75411-3.65 [id number] 5 09/[address] [facility] OFFICE O/P EST HI 40 MIN 68392-3.65 [id number] 7 Diagnos is: ICD-10- CM I48.0 Paroxys mal atrial fibrill LOUISE Fuentes 09/[address] [facility] Outpatient Encounter 01771-8.65 [id number] 4 09/[address] [facility] Outpatient Encounter 88601-5.65 [id number] 6 09/[address] [facility] Outpatient Encounter 78745-7.65 [id number] 6 09/[address] [facility] Outpatient Encounter 33083-8.65 [id number] 3 Jc TREVINO 10/[address] [facility] Outpatient Encounter 87400-5.65 [id number] 7 TIFFANY IRVIN 10/09 [facility] Outpatient Encounter 71321-8.65 [id number] 7 LISAMabel HALu Margarita 10/14 [facility] Outpatient Encounter 01558-3.65 [id number] 10/14 [facility] Outpatient Encounter 31406-1.65 [id number] 2 10/[address] [facility] Outpatient Encounter 34049-4.65 [id number] 2 Jc TREVINO 10/[address] [facility] Outpatient Encounter 99576-3. [id number] TIFFANY IRVIN 10/[address] [facility] PH1 ASSMT&MGMT NQHP 5-10 46511-7.65 [id number] 8 Diagnos is: ICD-10- CM I63.9 Cerebra l infarct ion, unspeci fied ANA,CAR A A 10/[address] [facility] Outpatient Encounter 68032-3.65 [id number] 1 11/[address] [facility] Outpatient Encounter 69740-8.65 [id number] 6 11/[address] [facility] Outpatient Encounter 40905-6.65 [id number] 5 11/[address] 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 Social History Type Response Date Comment Sourc e Tobacco smoking status NHIS VA-TOBACCO NEVER USED 10/08/2023 [facility] History of tobacco use KS-TOBACCO NEVER USED 03/30/2022 [facility] History of tobacco use KS-TOBACCO NEVER USED 05/26/2020 [facility] History of tobacco use KS-TOBACCO NEVER USED 07/30/2018 [facility] History of tobacco use LIFETIME NON-USER OF TOBACCO 08/01/2016 [facility] History of tobacco use LIFETIME NON-USER OF TOBACCO 07/25/2015 [facility] This section is an empty social history section. DoD Plan of Care List of future care activities from Department [facility] facilities. Additional future care activities may be listed in the Assessment and Plan section. Date/Time Care Activity Care Activity Detail Facili ty 03/02/2025 AMBULATORY - MEDICINE AMBULATORY - MEDICI NE [facility] Advance Directives List of completed, amended, or rescinded Advance Directives on record at Department [facility] facilities. An actual copy of the Directive is not included. Date Advance Directive Provider Source 12/08/2020 ADVANCE DIRECTIVE MARYCRUZ SANABRIA [facility]
--- OUTSIDE RECORDS SUMMARY | 2025-01-08 05:08 | XMS_ITS | Patient Health Record ---
Author Organization [facility] Address [address] [place] [address] Care Team Providers Care Individual Pension Adviser Name Role Phone Miguel Clayton Unavailable [phone] Nan JUAREZ, Betzy Unavailable Unavailable Gabriel West Unavailable [phone] Allergies Allergen (clinical drug ingredient) Drug/Non Drug [...] Duration: [address] 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) Active confirmed Problem Pain of right knee region (finding) (081306788383880) Pain in right knee (M25.561) Active confirmed Problem Solitary sacroiliitis (049752396) Sacroiliitis, not elsewhere classified (M46.1) Active confirmed Problem Lumbosacral spondylosis without myelopathy (70368640) Other spondylosis with radiculopathy, lumbar region (M47.26) Active confirmed Problem Cervical spondylosis without myelopathy (265234653) Spondylosis without myelopathy or radiculopathy, cervical region (M47.812) Active confirmed Problem Lumbosacral spondylosis without myelopathy (48147154) Spondylosis without myelopathy or radiculopathy, lumbar region (M47.816) Active confirmed Problem Lumbosacral spondylosis without myelopathy (disorder) (06636103) Spondylosis without myelopathy or radiculopathy, lumbosacral region (M47.817) Active confirmed Problem Lumbar radiculopathy (207241072) Radiculopathy, lumbar region (M54.16) Active confirmed Vital Signs Heart Rate 85 /min 04/20/2024 Temperature 98.2 degrees Fahrenheit 04/20/2024 Blood pressure diastolic 87 mm Hg 04/20/2024 Oximetry 97 04/20/2024 Height 74 in 04/20/2024 Blood pressure systolic 167 mm Hg 04/20/2024 Weight 173 lbs 04/20/2024 BMI 22.21 04/20/2024 Procedures Procedure Date Ordered Date Performed Result Body Sit e *ASC LUMBAR FACET/MBB JOINT INJ BILATERAL#1 88978 1st level, 62749 2nd level 04/20/2024 N/A Encounters Encounter Location Date Provider Diagnosis -/ [facility] [address] [place] [address] 02/05/2024 Miguel Clayton [facility] (current) use of opiate analgesic Z79.891 ; Spondylosis without myelopathy or radiculopathy, cervical region M47.812 ; Radiculopathy, lumbar region M54.16 ; Sacroiliitis, not elsewhere classified M46.1 and Primary osteoarthritis, unspecified shoulder M19.019 -/ [facility] [address] [place] [address] 04/20/2024 Miguel Clayton Spondylosis without myelopathy or radiculopathy, lumbar region M47.816 and Bilateral primary osteoarthritis of knee M17.0 -4800 [facility] [address] [place] [address] 04/21/2024 Gabriel West -103 [facility] [address] [place] [address] 04/23/2024 Miguel Clayton Assessments Encounter Date Diagnosis (ICD Code) Assessment Notes Treatment Notes Treatment Clinical Notes Section Notes 04/20/2024 Bilateral primary osteoarthritis of knee (ICD-10 [...] the risks of respiratory depression. He 02/05/2024 Spondylosis without myelopathy or radiculopathy, cervical region (ICD-10 - M47.812) 02/05/2024 [facility] (current) use of opiate analgesic (ICD-10 - Z79.891) 02/05/2024 Radiculopathy, lumbar region (ICD-10 - M54.16) [...] shoulder (ICD-10 - M19.019) 02/05/2024 Other Reviewed [place] PDMP on 02/04/24 at 10:05 am and patient was not found in the system. [place] 03/09/2024 Other Reviewed [place] PDMP on 02/04/24 at 10:05 am and patient was not found in the system. [place] 04/20/2024 Other Reviewed [place] PDMP on 04/20/24 at 7:14 am and patient was not found in the system. [place] unable to check PDMP Given 7 days to start Madill-Acet 5-325 on 01/2024 Plan Of Treatment Pending Test Test Name Order Date X ray : Knee, right 07/18/2022 TENS unit 04/03/2017 MRI : Lumbar Spine With/Without Contrast 07/18/2016 MRI : Lumbar Spine With/Without Contrast 09/13/2017 x-ray : bilateral shoulders 01/07/2017 *ASC LUMBAR FACET/MBB JOINT INJ BILATERAL#1 39913 1st level, 97228 2nd level 04/20/2024 UDS [facility] ToxAssure Flex 23 #[id number] Insurance Providers Payer Name Payer Address Payer Phone Subscriber Number Group Number Insured Name Patient Relationship to Insured Coverage Start Date Coverage End Date Medicare [place] [address] [address] [place] [address] [id number] Jesse Hunter Self - patient is the insured 5 [place] [employer] Federal Plan [address] [place] [address] [id number] Jesse Hunter Self - patient is the insured [facility] for Life - T4L [address] [place] [address] [id number] Jesse Hunter Self - patient is the insured [place] [address] [address] [place] [address] [id number] Hunter Jesse Self - patient is the insured Medical (General) History Medical History History ICD Code high blood pressure diabetes Rheumatoid Arthritis Prostate problems/urinary incontinence/b ladder infections Surgical History Surgery Date(Month/Year) knee surgery 2012 back surgery 2010 Hospitalization History Reason Date(Month/Year)
--- OUTSIDE RECORDS SUMMARY | 2025-01-08 05:08 | XMS_ITS | Patient Health Record ---
Author Organization [employer] Address [address] [place] [address] [place] [address] Care Team Providers Care Skein Spooler Name Role Phone Victorina JUAREZ, Raymundo Primary Care Provider Unavailable Reason For Referral No Information Plan Of Treatment No Information Insurance Providers Payer Name Payer Address Payer Phone Subscriber Number Group Number Insured Name Patient Relationship to Insured Coverage Start Date Coverage End Date Medicare E2 [address] [address] [place] [address] [id number] Jesse Hunter Self - patient is the insured 5 [facility] [[email or web address] E2 [address] [place] [address] [phone] [id number] Jesse Hunter Self - patient is the insured 4
--- OUTSIDE RECORDS SUMMARY | 2025-01-08 05:09 | XMS_ITS | Encounter Summary ---
Author Organization [facility] Address 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
--- OUTSIDE RECORDS SUMMARY | 2025-01-08 05:09 | XMS_ITS | Encounter Summary ---
Author Organization [facility] Address 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
--- OUTSIDE RECORDS SUMMARY | 2025-01-08 05:09 | XMS_ITS | Encounter Summary ---
Author Organization [facility] Address 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
--- OUTSIDE RECORDS SUMMARY | 2025-01-08 05:09 | XMS_ITS | Encounter Summary ---
Author Organization [facility] Address 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
--- OUTSIDE RECORDS SUMMARY | 2025-01-08 05:09 | XMS_ITS | Encounter Summary ---
Author Organization [facility] Address 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
--- OUTSIDE RECORDS SUMMARY | 2025-01-08 05:09 | XMS_ITS | Encounter Summary ---
Author Organization [employer] Address 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 Gender Identity Not on file Sexual [...] INTERFACE SYSTEM Comment: Lab test performed by: [facility] [address] [place] [address] [address] BANG CHRIS MD 08/30/2006 11:4 4 AM CDT us Preston Patel MD CHEMISTRY ORDERABLES Edited Performing Organization Address [facility] Phone Number INTERFACE SYSTEM Refer to clinic/hospital department * HEPATITIS B SURFACE ANTIGEN (08/30/2006 11:44 AM CDT) HEPATITIS B SURFACE AG NON-REACTI VE NON-REACT AMISH INTERFACE SYSTEM Comment: Lab test performed by: [facility] [address] [place] [address] DR BANG CHRIS MD 08/30/2006 11:4 4 AM CDT us Preston Patel MD CHEMISTRY ORDERABLES Edited Performing Organization Address [facility] Phone Number INTERFACE SYSTEM Refer to clinic/hospital department * HIV RAPID SCREEN (08/30/2006 11:44 AM CDT) RAPID HIV SCREEN Nonreactive Nonreactive INTERFACE SYSTEM Comment:Results called to Zachary keene at 08/30/2006 12:04 PM and read back verified. 08/30/2006 11:4 4 AM CDT us Preston Patel MD CHEMISTRY ORDERABLES Edited Performing Organization Address [facility] Phone Number INTERFACE SYSTEM Refer to clinic/hospital department documented in this encounter Visit Diagnoses Not on filedocumented in this encounter Additional Health Concerns Infection Onset Date Last Indicated Resolved Time MRSA Comment:02/2014 L knee, 04/2014 nares, left knee and blood 02/17/2014 02/17/2014 documented as of this encounter Care Teams Senior Engineer Relationship Specialty Start Date End Date Maxim Martínez MD PCP - General 01/14/18 documented as of this encounter
--- OUTSIDE RECORDS SUMMARY | 2025-01-08 05:09 | XMS_ITS | Clinical Summary ---
Author Organization [facility] [employer] Address [address] [place] [address] Care Team Providers Care Hydraulic Tester Name Role Phone Betzy Montana MD Unavailable [phone] Dora Peraza MD Unavailable [phone] Gabriel Camarena MD Unavailable [phone] Wyatt Ang MD Unavailable [phone] Skyler Noriega DPM Unavailable Selwyn Acharya MD Unavailable Unavailable Shemar Lawler MD Unavailable Nelda Grove MD Unavailable [phone] Timi Weinberg MD Primary Care Provider [phone] Afsaneh Kang [facility] Unavailable Source Comments [facility] [employer],non-owned Affiliates and Associated Physician Practices is amultiple site organization consisting of ambulatory clinics and hospital sitesin [place], [place], [place] and [place]. This disclosure is being madepursuant to the Care Everywhere program and may not contain all information available regarding this patient. Last updated 18.[facility] [employer] Allergies Active Allergy Reactions Criticality Noted Date [...] 9 mL 5 10/05/19 23 Active Pancreaze 81506-70485 units capsule TAKE 3 CAPSULES BY MOUTH [...] MCG/ACT nasal sprayIndication s:Eustachian tube disorder, bilateral [place] 2 (two) sprays into each nostril once [...] (05/07/2023): 07/2022 right knee x-rays with advanced guju-jx-ioad medial compartment joint space narrowing. May not [...] Seizure 12/28/2021 Overview (12/28/2021): 10/06/21 Heena Yadav, BEHAVIORAL INSTRUCTOR-X RAY TECHNICIAN Nurse Practitioner Family Bilateral non-palpable testicles 10/05/2021 [...] (nonsustained ventricular tachycardia) 12/11 Overview (12/21/2020): 08/09/2020 [facility] Janine Awad Pradeep, MD Parkinsonism, unspecified Parkinsonism type 12/11 Overview (12/21/2020): 11/07/2019 [facility] Lindsay Awad Danuta M, MD [...] infection 04/26/2014 07/24/2023 Acute cholecystitis 02/13/2014 05/07/20 23 Rhabdomyolysis 02/07/2014 05/07/2023 Low back pain 01/21/2014 08/11/2020 Pain in both hands 1 Immunizations Immunization Administration Dates Next Due COVID [...] Recorded Patient Health Questionnaire-2 Score 0 02/04/2024 [facility] - [facility] [...] place to sleep or slept in a custodial (including now)? 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 Patient Stated Goal: General Improving(10/2021 4:38 PM CDT) Yes Hazel Peng, NOHEMI Note: Independently use his home treadmill and cardio cruiser. Progress toward goal attainment: 0% : Ongoing / No progress Barriers to goal attainment: Strength and balance issues. Patient is riding his cardio cruiser. Medical Devices Implanted Type Area Chassis Engineer Device Identifier Shelf Expiration Date Model / Serial / Lot Ent Kit Implanted:Qty : 1 on 09/23/2020 by Nelda Grove MD at [facility] Right: Abdomen 01/07/2023 [id number] / / [id number] Oclr Cv 24mm Dlv Sys Watchman Flx Strl Implanted:Qty : 1 on 02/28/2022 by Jeffrey Camarena MD at [facility] [employer] [id number] 10/29/2024 [id number] / NA / [id number] Explanted Type Area Chassis Engineer Device Identifier Shelf Expiration Date Model / Serial / Lot Oclr Cv 20mm Dlv Sys Watchman Flx Strl Explanted:Qty: 1 on 02/28/2022 at [facility] [employer] [id number] 08/22/2024 [id number] / NA / [id number] Procedures Procedure Name Priority Date/Time Associated Diagnosis [...] [facility] Creatinine POCT 200 [facility] Microalbumin/Crea tinine Ratio <30 [facility] Urine URINE / Unknown 02/04/2024 2 :30 PM CDT us Afsaneh Kang BEHAVIORAL INSTRUCTOR-X RAY TECHNICIAN LAB - POINT OF CA RE ORDERABLES Final Result [facility] [address] [phone] * (ABNORMAL) COMPREHENSIVE METABOLIC PANEL (01/31/2024 11:32 [...] - 02/01/2024 6:15 AM CDT Performed at: - [facility] [address] [place], [place] [id number] Welt Maker: Dae Freeman PhD, Phone: [phone] us Timi Weinberg MD LAB - CHEMISTRY ORDERABLES Final Result Performing Organization Address City/[facility]/ZIP Co de Phone Number [facility] INSURANCE BILL [address] [place] [address] * HEMOGLOBIN A1C - POINT OF CARE (HgbA1C) (08/19/2023 1:30 PM CDT) Pathologist [facility] Hemoglobin A1c POCT 7.0 % [facility] Expiration Date 11/08/23 [facility] Lot # [id number] [facility] QC Verified Yes Yes [facility] Blood BLOOD SPECIMEN / Unknown 08/19/2023 1:30 PM CDT us Afsaneh Kang APRN-X RAY TECHNICIAN LAB - POINT OF CA RE ORDERABLES Final Result Performing Organization Address City/[facility] Co de Phone Number [facility] CNT[facility] FM [address] [place] [address], [facility] [phone] * DIABETES EYE EXAM (11/25/2020) us Scanned [...] Resulting Agency Comment Lab Testing performed at: [facility] [address] [facility] [phone] us Eboni Watkins BEHAVIORAL INSTRUCTOR-X RAY TECHNICIAN LAB - CHEMISTRY ORD ERABLES Final Result [facility] INSURANCE BILL [address] [place] [address] * COLONOSCOPY (12/16/2012) 12/16/2012 Narrative 12/16/2012 Ordered by an unspecified provider. us Scanned Document SCANNING ONLY Final Result from Last 3 Months or Most Recently Relevant to Health Maintenance [place] [address] [facility] MEDICARE [facility] [place] [address] Advance Directives * Full Code (Latest Code [...] 11:16 AM 03/01/2022 3:37 PM Care Teams Hydraulic Tester Relationship Specialty Start Date End Date Timi Weinberg MD [address] [place] [address] PCP - General Internal Medicine 05/20/23 Afsaneh Kang APRN-X RAY TECHNICIAN [address] [place] [address] PCP - Attributed-MSSP 01/12/24 Betzy Montana MD [address] [facility] [address] [place] [address] Rheumatology 11/24/19 [place] [address] [place], [place] [id number] Orthopedic Surgery 03/14/20 Gabriel Camarena MD [address] [place] [place] [id number] Cardiovascular Disease 08/04/20 Wyatt Ang MD [address] [facility] [address] [place] [address] Cardiology 08/04/20 Skyler Noriega DPM [address] [facility] [address] [place] [address] Podiatry 08/16/20 Selwyn Acharya MD [address] [facility] [address] [place] [address] Endocrinology 08/16/20 Shemar Lawler MD [address] [facility] [address] [place] [address] Physician Gastroenterology 11/09/20 Nelda Grove MD [address] [facility] [address] [place] [address] Physician Urology 01/06/21
--- OUTSIDE RECORDS SUMMARY | 2025-01-08 05:09 | XMS_ITS | Patient Health Record ---
Author Organization [facility] Address [address] [place] [phone] Care Team Providers Care Marine Geologist Name Role Phone Victorina JUAREZ, Raymundo Primary Care Provider Unavailable Davian Cruz Unavailable [phone] ALLERGIES Allergen (clinical drug ingredient) Drug/Non Drug [...] (primary) hypertension (I10) Active confirmed Essential hypertension (41004845) Problem Acute kidney failure, unspecified (N17.9) Active confirmed Acute renal failure syndrome (82461251) Has resolved now PLAN OF TREATMENT No Information Insurance Providers Payer Name Payer Address Payer Phone Subscriber Number Group Number Insured Name Patient Relationship to Insured Coverage Start Date Coverage End Date Medicare Part B [address] [place] [address] [id number] Jesse Hunter Self - patient is the insured [facility] Cross/[facility] [address] [place] [address] [id number] Jesse Hunter Self - patient is the insured 2 [employer] [address] [place] [address] [id number] Jesse Hunter Self - patient is the [...]
--- OUTSIDE RECORDS SUMMARY | 2025-01-08 05:09 | XMS_ITS | Clinical Summary ---
Author Organization [facility] Address [facility] [place] [address] Care Team Providers Care Electro Winning Operator Name Role Phone Shemar Hassan MD Primary Care Provider [phone] Allergies Active Allergy Reactions Criticality Noted Date [...] times daily with meals. 2 Active pancrelipase, Rqn-Aqry-Issx, (PANCREAZE) 228[address] units CAPSULE ENTERIC COATED PARTICLES capsule Take [...] Noted Date Diagnosed Date COVID-19 12/30/2022 Sepsis ([facility]) 12/28/2022 Family History Medical History Relation Comments [...] place to sleep or slept in a correction (including now)? No 12/28/2022 Sex and Gender [...] age to complete this topic Insurance [address] [place], [place] [id number] MEDICARE [facility] [email or web address] Advance Directives * Full Code (Latest Code Status on File) Date Activated Date Inactivated Comments 12/28/2022 4:47 PM 01/01/2023 7:48 PM Care Teams Electro Winning Operator Relationship Specialty [place] [address] [address] PCP - General FAMILY PRACTICE 02/13/22
--- OUTSIDE RECORDS SUMMARY | 2025-01-08 05:09 | XMS_ITS | Clinical Summary ---
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
--- OUTSIDE RECORDS SUMMARY | 2025-01-08 05:09 | XMS_ITS | Clinical Summary ---
Author Organization [facility] Address [address] [place] [address] Care Team Providers Care School Treasurer Name Role Phone Unavailable Primary Care Provider Unavailabl e Allergies Active Allergy Reactions Criticality Noted Date Comments Aspirin GI Intolerance 12/02/2018 Banana Itching Medium 02/07/2014 Latex Itching Medium 02/07/2014 Metoclopramide Other (See Comments) High 11/13/2019 Ataxia and other parkinson like symptoms Penicillins Hives,Rash Medium 08/08/2010 Sulfa Antibiotics Swelling,Rash Medium 08/08/2010 Medications pancrelipase, Yal-Kihu-Wnli, (PANCREAZE) 26764 units capsule Take 3 capsules by mouth [...] Comments Blood Pressure 139/77 05/05/2020 8:25 AM SANITARIAN INSPECTOR Pulse 93 05/05/2020 8:25 AM SANITARIAN INSPECTOR Temperature 36.2 C (97.1 F) 05/05/2020 8:25 AM SANITARIAN INSPECTOR Respiratory Rate 18 05/05/2020 8:25 AM SANITARIAN INSPECTOR Oxygen Saturation 97% 05/05/2020 8:25 AM SANITARIAN INSPECTOR Inhaled Oxygen Concentration - - Weight 78.2 kg (172 lb 6.4 oz) 05/01/2020 6:56 A M SANITARIAN INSPECTOR Height 188 cm (6' 2) 04/24/2020 5:13 PM SANITARIAN INSPECTOR Body Mass Index 22.13 04/24/2020 5:13 PM SANITARIAN INSPECTOR Plan of Treatment Health Maintenance Due Date [...]
--- OUTSIDE RECORDS SUMMARY | 2025-01-08 05:09 | XMS_ITS | Encounter Summary ---
Author Organization [employer] Address 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
[2025-01-08 05:16] LABS: Hematocrit 40.5 % (42.0-52.0); Hemoglobin 13.4 g/dL (14.0-18.0); Immature Granulocyte Percent A 0.3 % (0-0.5); Lymphocytes Absolute Auto 1.49 K/mm3 (0.9-3.2); Mean Corpuscular HGB Conc 33.1 g/dl (32-36); Mean Corpuscular Hemoglobin 28.6 pg (26-34); Mean Corpuscular Volume 86.5 fl (80-100); Nucleated Red Blood Cells Absolute Auto 0.000 K/mm3 (0.0-0.012); Nucleated Red Blood Cells Perc 0.0 % (0.0-0.2); Platelet Count Result 278 k/mm3 (150-375); Red Blood Count 4.68 M/mm3 (4.6-6.20); White Blood Count 6.5 K/mm3 (4.5-10.0)
[2025-01-08 05:23] LABS: Add Urine Microscopic? YES; Appearance Urine Cloudy (Clear); Glucose Urine UA Negative (Negative); Leukocyte Esterase Ur 1+ LEU/UL (Negative); Nitrate Urine Positive (Negative); Non Pathogenic Casts 0-2; Specific Grav Ur 1.014 (1.001-1.035)
[2025-01-08 05:37] LABS: Alanine Aminotransferase 24 U/L (6-50); Albumin Level 4.3 g/dL (3.5-5.1); Alkaline Phosphatase 86 U/L (38-126); Anion Gap 9 mmol/L (4-12); Aspartate Amino Transferase 30 U/L (17-59); Bilirubin,Total 1.0 mg/dL (0.2-1.3); Blood Urea Nitrogen 12 mg/dL (9-20); Calcium 9.8 mg/dL (8.4-10.2); Carbon Dioxide 27 mmol/L (22-30); Chloride 102 mmol/L (98-107); Estimated CRCL calculation 66 ml/min; Estimated Glomerular Filt Rate > 60; Glucose 160 mg/dL (65-110); Potassium 3.6 mmol/L (3.4-5.0); Sodium 138 mmol/L (137-145); Total Protein 8.7 g/dL (6.3-8.2)
[2025-01-08 05:52] LABS: Influenza A QL RT-PCR Negative (Negative); Influenza B QL RT-PCR Negative (Negative); RSV RNA, RT-PCR Negative (Negative); SARS-CoV-2 RNA PCR Negative (Negative)
[2025-01-08] MEDS: cefTRIAXone 1 GM in SODIUM CHLORIDE 0.9% IV 50 ML 100 ML IVPB (06:02)
[2025-01-08] MEDS: LACTATED RINGERS 1,000 ML 999 ML IV CONT (07:00)
--- NOTE | 2025-01-08 09:20 | ADMGEN ---
This patient, Jesse Hunter, was admitted to [facility] Surg Room 309-01. Patient/family oriented to hospital policies and general routines including ID bracelet, bed and alarms, visiting hours, pain management, procedures, bathroom and other care routines, personal items, smoking policy, room service/diet, and visiting hours. Information on how to activate the Rapid Response Team has been discussed. Patient/Family are encouraged to report perceived risks to care and to ask questions if they do not understand what they are told or what they should do.
--- NOTE | 2025-01-08 12:37 | PM.IMHP ---
H&P: HPI History of Present Illness Date/Time: 01/08/25 12:37 Chief Complaint: Fall and generalized weakness Narrative: Jesse Hunter is a 74-year-old gentleman with past medical history of hypertension, pancreatic insufficiency, osteoarthritis, atrial fibrillation status post Watchman placement, right CVA, with frequent fall suspected for seizure who is here for on generalized weakness and UTI. About a week ago, he fall and broke his coccygeal bone. Overnight, he has slipped from his bed and the stayed on the floor for 10 minutes before he has called EMS. He only complains pain around the coccygeal region from fall as otherwise he denies any fever, chills, chest pain, shortness a breath, abdominal pain, urinary symptoms. He is very wobbly and unsteady. Chest x-ray was negative for any consolidation/infiltrate or cardio silhouette change. Cbc and CMP was unremarkable. Urinalysis shows positive nitrite, 1+ leukocyte esterase, 11-20 WBC. He was started with ceftriaxone in the ED and admitted for observation and physical and occupational therapy. Review of Systems Review of Systems: All systems reviewed & are unremarkable except as noted in HPI and below PMFSH Past Medical History Medical History (Updated 01/08/25 @ 12:53 by Maribel Espinal MD) Seizure after head injury Pancreatic insufficiency Hypertension Hyperlipidemia Diabetes mellitus BPH (benign prostatic hyperplasia) Atrial fibrillation Family History Family History Father Lung disease Mother Heart attack Social History Social History Smoking status: Never smoker Second hand tobacco smoke exposure: No Alcohol intake: never Substance use: never Substance use type: does not use Lack of Transportation: No Lack of Food: Never True Current Housing: I Have Housing Concerned About Future Housing: No Difficulty Paying Gas/Electric Bills: No Difficulty Paying for Meds: No Currently Unemployed: No Education: Master's Degree or Higher Difficulty w/ Childcare or Family Care: No Spiritual care concerns: No Meds Home Medications and Allergies Home Medications ?Medication ?Instructions ?Recorded ?Confirmed ?Type amlodipine 5 mg tablet 5 mg PO DAILY 01/01/23 01/08/25 History aspirin 81 mg chewable tablet 81 mg PO Q48H 01/01/23 01/08/25 History (Aspirin Childrens) atorvastatin 80 mg tablet 80 mg PO HS 01/01/23 01/08/25 History bethanechol chloride 10 mg tablet 10 mg PO TID 01/01/23 01/08/25 History cholecalciferol (vitamin D3) 25 50 mcg PO DAILY 01/01/23 01/08/25 History mcg (1,000 unit) tablet clopidogrel 75 mg tablet (Plavix) 75 mg PO DAILY 01/01/23 01/08/25 History finasteride 5 mg tablet 5 mg PO DAILY 01/01/23 01/08/25 History folic acid-vit B6-vit B12 2.2 1 tablet PO DAILY 01/01/23 01/08/25 History mg-25 mg-1 mg tablet (Virt-Neeta) hydrocodone 10 mg-acetaminophen 1 tablet PO Q48H PRN Pain (Scale 01/01/23 01/08/25 History 325 mg tablet Score 7-10) hydroxychloroquine 200 mg tablet 200 mg PO BID 01/01/23 01/08/25 History levetiracetam 500 mg tablet 1,000 mg PO BID 01/01/23 01/08/25 History lipase 10,500-protease 3 cap PO TID 01/01/23 01/08/25 History 35,500-amylase 61,500 unit capsule,delayed rel (Pancreaze) magnesium oxide 400 mg PO DAILY 01/01/23 01/08/25 History pantoprazole 40 mg tablet,delayed 40 mg PO QAM 01/01/23 01/08/25 History release pregabalin 100 mg capsule 100 mg PO QAM 01/01/23 01/08/25 History pregabalin 100 mg capsule 200 mg PO HS 01/01/23 01/08/25 History pyridoxine (vitamin B6) 50 mg 50 mg PO DAILY 01/01/23 01/08/25 History tablet sitagliptin phosphate 100 mg tablet 100 mg PO DAILY 01/01/23 01/08/25 History sotalol 80 mg tablet 120 mg PO BID 01/01/23 01/08/25 History tamsulosin 0.4 mg capsule 0.4 mg PO BID 01/01/23 01/08/25 History cyanocobalamin (vitamin B-12) 1,000 mcg IM MONTHLY #0 mL 01/11/23 01/08/25 Rx 1,000 mcg/mL injection solution sennosides 8.6 mg-docusate sodium 1 tab PO HS #14 tabs 01/11/23 01/08/25 Rx 50 mg tablet (Senokot-S) Allergies Allergy/AdvReac Type Severity Reaction Status Date / Time peanut Allergy Intermediate Swelling Verified 01/08/25 05:18 banana Allergy Unknown Itching Verified 01/08/25 05:18 latex Allergy Unknown Itching Verified 01/08/25 05:18 Penicillins Allergy Unknown Swelling Verified 01/08/25 05:18 Sulfa (Sulfonamide Allergy Unknown Swelling Verified 01/08/25 05:18 Antibiotics) celecoxib (From Celebrex) Allergy Swelling Verified 01/08/25 05:18 infliximab (From Remicade) Allergy Unknown Verified 01/08/25 05:18 meloxicam (From Mobic) Allergy Itching Verified 01/08/25 05:18 metoclopramide Allergy Unknown Verified 01/08/25 05:18 lisinopril AdvReac Swelling Verified 01/08/25 05:18 Vital Signs Vital Signs - 24 hr 01/08/25 04:34 01/08/25 07:00 01/08/25 07:54 Temperature 37.3 C Pulse Rate 84 70 70 Respiratory Rate 15 16 18 Blood Pressure 167/89 H 169/86 H 160/88 H Pulse Oximetry 97 99 100 Oxygen Delivery Room Air 01/08/25 09:41 Temperature Pulse Rate Respiratory Rate Blood Pressure Pulse Oximetry Oxygen Delivery Room Air Exam Narrative: APPEARANCE: No acute distress, nontoxic, EYES: EOMI HEENT: Dry mucous membrane, Normocephalic RESPIRATORY: No respiratory distress Clear to auscultation bilaterally with no rhonchi wheezing or rales. CARDIOVASCULAR: RRR, S1 and S2 without murmurs rubs or gallops. ABDOMINAL: Soft, nontender, nondistended, no rebound or guarding MSK: Dry skin, moves his extremities spontaneously, 4/5 left-sided motor weakness-from CVA NEURO: Awake and alert. Following commands, speech normal, no focal deficits SKIN:: Warm, dry. No rashes lesions or abrasions PSYCHIATRIC: Normal affect/mood, H&P: Results Labs Labs: Short CBC 01/08/25 Range/Units 05:06 WBC 6.5 (4.5-10.0) K/mm3 Hgb 13.4 L (14.0-18.0) g/dL Hct 40.5 L (42.0-52.0) % Plt Count 278 (150-375) k/mm3 BMP 01/08/25 05:06 Sodium 138 Potassium 3.6 Chloride 102 Carbon Dioxide 27 BUN 12 Creatinine 1.00 Glucose 160 H Calcium 9.8 Liver Function 01/08/25 Range/Units 05:06 Total Bilirubin 1.0 (0.2-1.3) mg/dL AST 30 (17-59) U/L ALT 24 (6-50) U/L Alkaline Phosphatase 86 (38-126) U/L Albumin 4.3 (3.5-5.1) g/dL Urine 01/08/25 Range/Units 05:06 Urine Color Yellow (Yellow) Urine Appearance Cloudy H (Clear) Urine pH 6.5 (5.0-9.0) Ur Specific [place] 1.014 (1.001-1.035) Urine Protein Negative (Negative) mg/dL Urine Glucose (UA) Negative (Negative) mg/dL Assessment and Plan Assessment and plan (1) Generalized weakness: Code(s): R53.1 - Weakness Status: Acute (2) Acute UTI: Code(s): N39.0 - Urinary tract infection, site not specified Status: Acute (3) Atrial fibrillation: Code(s): I48.91 - Unspecified atrial fibrillation Status: Acute (4) BPH (benign prostatic hyperplasia): Code(s): N40.0 - Benign prostatic hyperplasia without lower urinary tract symptoms Status: Acute (5) Diabetes mellitus: Code(s): E11.9 - Type 2 diabetes mellitus without complications Status: Acute (6) Hyperlipidemia: Code(s): E78.5 - Hyperlipidemia, unspecified Status: Acute (7) Hypertension: Code(s): I10 - Essential (primary) hypertension Status: Acute (8) Pancreatic insufficiency: Code(s): K86.89 - Other specified diseases of pancreas Status: Acute (9) Seizure after head injury: Code(s): R56.1 - Post traumatic seizures Status: Acute Plan 1. generalized weakness Likely secondary to UTI/physical taken she Chest x-ray negative for pneumonia Continue physical therapy and occupational therapy Continue UTI treatment Follow CPK 2. UTI UA reveals positive nitrite and leukocytes Continue ceftriaxone Follow up urine culture and blood culture 3. Type 2 diabetes mellitus Follow A1c Continue sitagliptin POCT, sliding scale, hypoglycemia protocol 4. Pancreatic insufficiency Continue pancreatic enzyme 5. Suspected seizure He had multiple falls while ago, suspected secondary to seizure episode, was placed on Keppra. Attempted to remove Keppra and he started having multiple fall episode-decided to continue Keppra indefinitely Continue Keppra 1 g p.o. b.i.d. 6. Permanent atrial fibrillation Status post Watchman placement 2017 Continue sotalol 120 mg p.o. b.i.d. 7. 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 BPH Continue tonsils 9. Neuropathic pain Continue pregabalin 100 mg q.a.m. and 100 mg q.h.s. Quality VTE Prophylaxis VTE prophylaxis: mechanical ordered
[2025-01-08 13:26] LABS: Hemoglobin A1C 6.5 % (<5.7)
[2025-01-08 13:30] LABS: Creatine Kinase 101 U/L (55-170)
[2025-01-08] MEDS: LIPASE/AMYLASE/PROTEASE 12,000 UNITS CAP 3 CAP PO ×2 (14:12→16:32)
[2025-01-08] MEDS: HYDROcodone/acetaminophen (*CRX) 10-325 MG TABLET 1 TAB PO (15:21)
[2025-01-08] MEDS: BETHANECHOL CHLORIDE 10 MG TABLET PO (15:22)
[2025-01-08] MEDS: HYDROXYCHLOROQUINE SULFATE 200 MG TABLET PO (16:33)
[2025-01-08] MEDS: TAMSULOSIN HCL 0.4 MG CAPSULE PO (16:33)
[2025-01-08] MEDS: ATORVASTATIN 40 MG TABLET 80 MG PO (21:31)
[2025-01-08] MEDS: PREGABALIN (*CRX) 50 MG CAPSULE 200 MG PO (21:32)
[2025-01-09 05:28] LABS: Hematocrit 40.2 % (42.0-52.0); Hemoglobin 13.3 g/dL (14.0-18.0); Mean Corpuscular HGB Conc 33.1 g/dl (32-36); Mean Corpuscular Hemoglobin 28.5 pg (26-34); Mean Corpuscular Volume 86.1 fl (80-100); Platelet Count Result 288 k/mm3 (150-375); Red Blood Count 4.67 M/mm3 (4.6-6.20); White Blood Count 7.4 K/mm3 (4.5-10.0)
[2025-01-09] MEDS: BETHANECHOL CHLORIDE 10 MG TABLET PO ×3 (05:51→17:11)
[2025-01-09] MEDS: cefTRIAXone 1 GM in SODIUM CHLORIDE 0.9% IV 50 ML 100 ML IVPB (05:51)
[2025-01-09 06:00] VITALS: BP 94/53; PULSE 61; RESP 18; TEMP 36.6; O2SAT 99
[2025-01-09 08:25] VITALS: BP 93/63
[2025-01-09] MEDS: SODIUM CHLORIDE 0.9% IV 1,000 ML 999 ML IV CONT (08:40)
--- NOTE | 2025-01-09 08:58 | PCPTNOTE ---
Attempted to see pt for physical therapy. Pt stated that he threw up and is not feeling well. Declined therapy at this time.
[2025-01-09] MEDS: LIDOCAINE 5% PATCH 1 PATCH TRANSDERM (10:01)
[2025-01-09] MEDS: LIPASE/AMYLASE/PROTEASE 12,000 UNITS CAP 3 CAP PO ×3 (10:02→17:10)
[2025-01-09] MEDS: PANTOPRAZOLE 40 MG TABLET PO (10:02)
[2025-01-09] MEDS: HYDROXYCHLOROQUINE SULFATE 200 MG TABLET PO ×2 (10:03→17:10)
[2025-01-09] MEDS: ASPIRIN 81 MG CHEWABLE TABLET PO (10:03)
[2025-01-09] MEDS: HYDROcodone/acetaminophen (*CRX) 10-325 MG TABLET 1 TAB PO (10:03)
[2025-01-09] MEDS: CLOPIDOGREL BISULFATE 75 MG TABLET PO (10:04)
[2025-01-09] MEDS: FINASTERIDE 5 MG TABLET PO (10:04)
[2025-01-09] MEDS: PREGABALIN (*CRX) 50 MG CAPSULE 100 MG PO (10:04)
[2025-01-09] MEDS: TAMSULOSIN HCL 0.4 MG CAPSULE PO ×2 (10:04→17:10)
--- NOTE | 2025-01-09 10:17 | PM.IMPN ---
Progress Note: A&P Assessment and Plan (1) Generalized weakness: Code(s): R53.1 - Weakness Status: Acute (2) Acute UTI: Code(s): N39.0 - Urinary tract infection, site not specified Status: Acute (3) Atrial fibrillation: Code(s): I48.91 - Unspecified atrial fibrillation Status: Acute (4) BPH (benign prostatic hyperplasia): Code(s): N40.0 - Benign prostatic hyperplasia without lower urinary tract symptoms Status: Acute (5) Diabetes mellitus: Code(s): E11.9 - Type 2 diabetes mellitus without complications Status: Acute (6) Hyperlipidemia: Code(s): E78.5 - Hyperlipidemia, unspecified Status: Acute (7) Hypertension: Code(s): I10 - Essential (primary) hypertension Status: Acute (8) Pancreatic insufficiency: Code(s): K86.89 - Other specified diseases of pancreas Status: Acute (9) Seizure after head injury: Code(s): R56.1 - Post traumatic seizures Status: Acute Plan 1. generalized weakness Likely secondary to UTI/physical taken she Chest x-ray negative for pneumonia Continue physical therapy and occupational therapy Continue UTI treatment Follow CPK 2. UTI UA reveals positive nitrite and leukocytes Continue ceftriaxone Follow up urine culture and blood culture 3. Type 2 diabetes mellitus Follow A1c Continue sitagliptin POCT, sliding scale, hypoglycemia protocol 4. Pancreatic insufficiency Continue pancreatic enzyme 5. Suspected seizure He had multiple falls while ago, suspected secondary to seizure episode, was placed on Keppra. Attempted to remove Keppra and he started having multiple fall episode-decided to continue Keppra indefinitely Continue Keppra 1 g p.o. b.i.d. 6. Permanent atrial fibrillation Status post Watchman placement 2018 Continue sotalol 120 mg p.o. b.i.d. 7. 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 BPH Continue tonsils 9. Neuropathic pain Continue pregabalin 100 mg q.a.m. and 100 mg q.h.s. 10. hypotension NS 500 cc bolus hold any antihypertensive medication check blood pressure right after the bolus if he continues to be hypotensive will give additional 500 cc bolus Time Spent With Patient Time: 20 minutes Subjective Date/time seen: 01/09/25 10:17 Interval history: Mr. Hunter reports pain in the tailbone. he also had vomiting right after taking his medication. he was not nauseous. no fever overnight. no abdominal pain. Review of Systems Review of Systems: All systems reviewed & are unremarkable except as noted in HPI and below Exam Narrative: APPEARANCE: No acute distress, nontoxic, EYES: EOMI HEENT: Dry mucous membrane, Normocephalic RESPIRATORY: No respiratory distress Clear to auscultation bilaterally with no rhonchi wheezing or rales. CARDIOVASCULAR: RRR, S1 and S2 without murmurs rubs or gallops. ABDOMINAL: Soft, nontender, nondistended, no rebound or guarding MSK: Dry skin, moves his extremities spontaneously, 4/5 left-sided motor weakness-from CVA NEURO: Awake and alert. Following commands, speech normal, no focal deficits SKIN:: Warm, dry. No rashes lesions or abrasions PSYCHIATRIC: Normal affect/mood, Objective Data Vital Signs Vital Signs: Vital Signs - 24 hr 01/08/25 14:00 01/08/25 15:05 01/08/25 20:00 Temperature 36.9 C Pulse Rate 85 94 Respiratory Rate 18 18 Blood Pressure 159/90 H Pulse Oximetry 99 99 Oxygen Delivery Room Air Room Air 01/08/25 21:32 01/08/25 22:00 01/09/25 06:00 Temperature 36.9 C 36.6 C Pulse Rate 94 91 61 Respiratory Rate 18 18 Blood Pressure 138/84 94/53 L Pulse Oximetry 100 99 Oxygen Delivery 01/09/25 10:01 Temperature Pulse Rate 60 Respiratory Rate Blood Pressure Pulse Oximetry Oxygen Delivery Intake/Output Intake/Output: Intake & Output 01/06/25 01/07/25 01/08/25 01/09/25 23:59 23:59 23:59 23:59 Intake Total 1530 50 Output Total 200 Balance 1530 -150 Meds/Results Medications: Active Medications Generic Name Dose Route Start Last Admin Trade Name Freq PRN Reason Stop Dose Admin Hydrocodone Bitart/Acetaminophen 1 tab 01/09/25 08:46 01/09/25 10:03 Hydrocodone/Acetaminophen (*Crx) 10-325 Mg Tablet PO 1 tab Q6H PRN Administration Pain (Scale Score 7-10) Amlodipine Besylate 5 mg 01/09/25 09:00 01/09/25 09:36 Amlodipine Besylate 5 Mg Tablet PO Not Given DAILY SERENA Lipase/Protease/Amylase 3 cap 01/08/25 13:00 01/09/25 10:02 Lipase/Amylase/Protease 12,000 Units Cap PO 3 cap TID SERENA Administration Aspirin 81 mg 01/09/25 09:00 01/09/25 10:03 Aspirin 81 Mg Chewable Tablet PO 81 mg Q48H SERENA Administration Atorvastatin Calcium 80 mg 01/08/25 21:00 01/08/25 21:31 Atorvastatin 40 Mg Tablet PO 80 mg HS SERENA Administration Bethanechol Chloride 10 mg 01/08/25 16:30 01/09/25 05:51 Bethanechol Chloride 10 Mg Tablet PO 10 mg TIDAC SERENA Administration Clopidogrel Bisulfate 75 mg 01/09/25 09:00 01/09/25 10:04 Clopidogrel Bisulfate 75 Mg Tablet PO 75 mg DAILY SERENA Administration Finasteride 5 mg 01/09/25 09:00 01/09/25 10:04 Finasteride 5 Mg Tablet PO 5 mg DAILY SERENA Administration Hydroxychloroquine Sulfate 200 mg 01/08/25 17:00 01/09/25 10:03 Hydroxychloroquine Sulfate 200 Mg Tablet PO 200 mg BID SERENA Administration Ceftriaxone Sodium 1 gm/ 50 mls @ 100 mls/hr 01/09/25 06:00 01/09/25 06:21 Sodium Chloride IVPB Infused Q24H SERENA Infusion Levetiracetam 1,000 mg 01/08/25 21:00 01/09/25 10:03 Levetiracetam 500 Mg Tablet PO 1,000 mg Q12HR SERENA Administration Lidocaine 1 patch 01/09/25 09:00 01/09/25 10:01 Lidocaine 5% Patch TRANSDERM 1 patch DAILY SERENA Administration Miscellaneous Information 1 each 01/09/25 00:01 01/09/25 09:[address] Of Application XX 02/08/25 00:00 Not Given CLARIFY SERENA Pantoprazole Sodium 40 mg 01/09/25 09:00 01/09/25 10:02 Pantoprazole 40 Mg Tablet PO 40 mg QAM SERENA Administration Pregabalin 100 mg 01/09/25 09:00 01/09/25 10:04 Pregabalin (*Crx) 50 Mg Capsule PO 100 mg QAM SERENA Administration Pregabalin 200 mg 01/08/25 21:00 01/08/25 21:32 Pregabalin (*Crx) 50 Mg Capsule PO 200 mg HS SERENA Administration Sotalol HCl 120 mg 01/08/25 21:00 01/09/25 10:01 Sotalol Hcl 40 Mg Tablet PO 120 mg Q12HR SERENA Administration Tamsulosin HCl 0.4 mg 01/08/25 17:00 01/09/25 10:04 Tamsulosin Hcl 0.4 Mg Capsule PO 0.4 mg BID SERENA Administration Radiology Results: ITS Impressions Chest X-Ray 01/08/25 05:19 IMPRESSION: 1: NO ACUTE CARDIOPULMONARY DISEASE. Labs Labs: Laboratory Results - last 24 hr 01/08/25 01/09/25 05:06 04:54 WBC 7.4 RBC 4.67 Hgb 13.3 L Hct 40.2 L MCV 86.1 MCH 28.5 MCHC 33.1 RDW 14.9 H Plt Count 288 MPV 8.7 Hemoglobin A1c 6.5 H Total Creatine Kinase 101 Quality VTE Prophylaxis VTE prophylaxis: mechanical ordered and pharmacologic ordered ( Lovenox)
[2025-01-09 10:23] VITALS: BP 98/59
[2025-01-09 11:35] VITALS: BP 107/57
[2025-01-09] MEDS: ENOXAPARIN 30 MG/0.3 ML SYRINGE SUB-Q (12:13)
[2025-01-09] MEDS: SODIUM CHLORIDE 0.9% IV 500 ML IV CONT (12:14)
--- NOTE | 2025-01-09 13:48 | ECG_ITS ---
Test Date: 2025-01-09 14:01:59 Measurements Intervals [place] Rate: 56 P: 75 CT: 155 QRS: 68 QRSD: 93 T: 72 QT: 440 QTc: 425 Interpretive Statements SINUS BRADYCARDIA NONSPECIFIC ST-T WAVE ABNORMALITY- HIGH LATERAL LEADS BORDERLINE ECG Compared to ECG 01/08/2025 04:58:34 HEART RATE HAS DECREASED Electronically Signed On 01-09-2025 15:34:46 CDT by Nolberto Perea D.O.
[2025-01-09 14:00] VITALS: BP 92/54; PULSE 59; RESP 16; TEMP 36.1; O2SAT 99
--- NOTE | 2025-01-09 14:31 | PC.NURSE ---
Noticed patient has not voided. Pt states to have voided early this AM. Bladder scanned pt and was 285cc. BP was also 92/84. notified.
[2025-01-09 14:48] LABS: Alanine Aminotransferase 21 U/L (6-50); Albumin Level 3.6 g/dL (3.5-5.1); Alkaline Phosphatase 59 U/L (38-126); Anion Gap 8 mmol/L (4-12); Aspartate Amino Transferase 31 U/L (17-59); Bilirubin,Total 1.4 mg/dL (0.2-1.3); Blood Urea Nitrogen 19 mg/dL (9-20); Calcium 9.0 mg/dL (8.4-10.2); Carbon Dioxide 25 mmol/L (22-30); Chloride 102 mmol/L (98-107); Estimated CRCL calculation 42 ml/min; Estimated Glomerular Filt Rate 54; Glucose 200 mg/dL (65-110); Potassium 4.1 mmol/L (3.4-5.0); Sodium 135 mmol/L (137-145); Total Protein 7.2 g/dL (6.3-8.2)
--- NOTE | 2025-01-09 18:11 | PC.NURSE ---
Pt has not voided and states that he does not feel like he needs to void. Bladder scan results are 330cc. made aware. Pt is alert and oriented x4 and states to be feeling good. No signs and symptoms at this time.
[2025-01-09] MEDS: THIAMINE HCL INJ 100 MG, FOLIC ACID INJ 1 MG, MAGNESIUM SULFATE INJ 1 GM, MULTIVITAMINS... IV CONT (18:23)
[2025-01-09 20:20] VITALS: BP 94/63; PULSE 64; RESP 18; TEMP 36.7; O2SAT 100
[2025-01-09] MEDS: ATORVASTATIN 40 MG TABLET 80 MG PO (21:19)
[2025-01-09] MEDS: PREGABALIN (*CRX) 50 MG CAPSULE 200 MG PO (21:19)
[2025-01-10 05:10] VITALS: BP 102/56; PULSE 54; RESP 15; TEMP 35.9; O2SAT 100
[2025-01-10] MEDS: BETHANECHOL CHLORIDE 10 MG TABLET PO ×3 (05:34→16:16)
[2025-01-10] MEDS: cefTRIAXone 1 GM in SODIUM CHLORIDE 0.9% IV 50 ML 100 ML IVPB (05:34)
[2025-01-10 05:58] LABS: Hematocrit 42.0 % (42.0-52.0); Hemoglobin 13.3 g/dL (14.0-18.0); Mean Corpuscular HGB Conc 31.7 g/dl (32-36); Mean Corpuscular Hemoglobin 28.8 pg (26-34); Mean Corpuscular Volume 90.9 fl (80-100); Platelet Count Result 247 k/mm3 (150-375); Red Blood Count 4.62 M/mm3 (4.6-6.20); White Blood Count 7.5 K/mm3 (4.5-10.0)
[2025-01-10 06:27] LABS: Alanine Aminotransferase 18 U/L (6-50); Albumin Level 3.6 g/dL (3.5-5.1); Alkaline Phosphatase 58 U/L (38-126); Anion Gap 11 mmol/L (4-12); Aspartate Amino Transferase 26 U/L (17-59); Bilirubin,Total 1.6 mg/dL (0.2-1.3); Blood Urea Nitrogen 17 mg/dL (9-20); Calcium 8.8 mg/dL (8.4-10.2); Carbon Dioxide 19 mmol/L (22-30); Chloride 106 mmol/L (98-107); Estimated CRCL calculation 52 ml/min; Estimated Glomerular Filt Rate > 60; Glucose 135 mg/dL (65-110); Potassium 3.7 mmol/L (3.4-5.0); Sodium 136 mmol/L (137-145); Total Protein 7.3 g/dL (6.3-8.2)
--- NOTE | 2025-01-10 07:36 | P.PNIM_ITS ---
Progress Note: A&P Assessment and Plan (1) Generalized weakness: Code(s): R53.1 - Weakness Status: Acute (2) Acute UTI: Code(s): N39.0 - Urinary tract infection, site not specified Status: Acute (3) Atrial fibrillation: Code(s): I48.91 - Unspecified atrial fibrillation Status: Acute (4) BPH (benign prostatic hyperplasia): Code(s): N40.0 - Benign prostatic hyperplasia without lower urinary tract symptoms Status: Acute (5) Diabetes mellitus: Code(s): E11.9 - Type 2 diabetes mellitus without complications Status: Acute (6) Hyperlipidemia: Code(s): E78.5 - Hyperlipidemia, unspecified Status: Acute (7) Hypertension: Code(s): I10 - Essential (primary) hypertension Status: Acute (8) Pancreatic insufficiency: Code(s): K86.89 - Other specified diseases of pancreas Status: Acute (9) Seizure after head injury: Code(s): R56.1 - Post traumatic seizures Status: Acute (10) Nondisplaced zone I fracture of sacrum: Code(s): S32.110A - Nondisplaced Zone I fracture of sacrum, initial encounter for closed fracture Status: Acute Plan 1.Generalized weakness Likely secondary to UTI/physical taken she Chest x-ray negative for pneumonia Continue physical therapy and occupational therapy Continue UTI treatment 2. UTI UA reveals positive nitrite and leukocytes Continue ceftriaxone for 5 days Urine culture grew use 50,000-100,000 colony-forming unit mixed urogenital arun is clinically insignificant. 3. Type 2 diabetes mellitus A1c 6.5% Discontinue sitagliptin due to his lack of appetite POCT, sliding scale, hypoglycemia protocol 4. Pancreatic insufficiency Continue pancreatic enzyme 5. Suspected seizure He had multiple falls while ago, suspected secondary to seizure episode, was placed on Keppra. Attempted to remove Keppra and he started having multiple fall episode-decided to continue Keppra indefinitely Continue Keppra 1 g p.o. b.i.d. 6. Permanent atrial fibrillation Status post Watchman placement 2018 Continue sotalol 120 mg p.o. b.i.d. 7. 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 BPH Continue tonsils 9. Neuropathic pain Continue pregabalin 100 mg q.a.m. and 100 mg q.h.s. 10. hypotension NS 500 cc bolus hold any antihypertensive medication check blood pressure right after the bolus if he continues to be hypotensive will give additional 500 cc bolus 11. None displaced fracture extending across the S4 segment and minimal displaced fracture at the L6 segment Lidocaine patch, [place] 5 mg q.6 p.r.n. Physical and occupational therapy 12. Disposition Pending Physical and Occupational assessment Time Spent With Patient Time: 25 minutes Subjective Date/time seen: 01/10/25 07:36 Interval history: Jesse is more awake today. He was able to sit up for exam. He was more conversant and interest he has more energy today. The pain is controlled. He does not have any nausea or vomiting any more. His appetite is better today Review of Systems Review of Systems: All systems reviewed & are unremarkable except as noted in HPI and below Exam Narrative: APPEARANCE: No acute distress, nontoxic, comfortable EYES: EOMI HEENT: Dry mucous membrane, Normocephalic RESPIRATORY: No respiratory distress Clear to auscultation bilaterally with no rhonchi wheezing or rales. CARDIOVASCULAR: RRR, S1 and S2 without murmurs rubs or gallops. ABDOMINAL: Soft, nontender, nondistended, no rebound or guarding MSK: Dry skin, moves his extremities spontaneously, 4/5 left-sided motor weakness-from CVA NEURO: Awake and alert. Following commands, speech normal, no focal deficits SKIN:: Warm, dry. No rashes lesions or abrasions PSYCHIATRIC: Bright affect Objective Data Vital Signs Vital Signs: Vital Signs - 24 hr 01/09/25 08:25 01/09/25 10:23 01/09/25 11:35 Temperature Pulse Rate Respiratory Rate Blood Pressure 93/63 L 98/59 L 107/57 L Pulse Oximetry Oxygen Delivery 01/09/25 14:00 01/09/25 20:00 01/09/25 20:20 Temperature 36.1 C L 36.7 C Pulse Rate 59 L 64 Respiratory Rate 16 18 Blood Pressure 92/54 L 94/63 L Pulse Oximetry 99 100 Oxygen Delivery Room Air 01/10/25 05:10 Temperature 35.9 C L Pulse Rate 54 L Respiratory Rate 15 Blood Pressure 102/56 L Pulse Oximetry 100 Oxygen Delivery Intake/Output Intake/Output: Intake & Output 01/07/25 01/08/25 01/09/2525 23:59 23:59 23:59 23:59 Intake Total 1530 161 50 Output Total 200 550 Balance 9890 -29 -041 Meds/Results Medications: Active Medications Generic Name Dose Route Start Last Admin Trade Name Freq PRN Reason Stop Dose Admin Hydrocodone Bitart/Acetaminophen 1 tab 01/09/25 08:46 01/09/25 10:03 Hydrocodone/Acetaminophen (*Crx) 10-325 Mg Tablet PO 1 tab Q6H PRN Administration Pain (Scale Score 7-10) Amlodipine Besylate 5 mg 01/09/25 09:00 01/09/25 09:36 Amlodipine Besylate 5 Mg Tablet PO Not Given DAILY SERENA Lipase/Protease/Amylase 3 cap 01/08/25 13:00 01/09/25 17:10 Lipase/Amylase/Protease 12,000 Units Cap PO 3 cap TID SERENA Administration Aspirin 81 mg 01/09/25 09:00 01/09/25 10:03 Aspirin 81 Mg Chewable Tablet PO 81 mg Q48H SERENA Administration Atorvastatin Calcium 80 mg 01/08/25 21:00 01/09/25 21:19 Atorvastatin 40 Mg Tablet PO 80 mg HS SERENA Administration Bethanechol Chloride 10 mg 01/08/25 16:30 01/10/25 05:34 Bethanechol Chloride 10 Mg Tablet PO 10 mg TIDAC SERENA Administration Clopidogrel Bisulfate 75 mg 01/09/25 09:00 01/09/25 10:04 Clopidogrel Bisulfate 75 Mg Tablet PO 75 mg DAILY SERENA Administration Enoxaparin Sodium 30 mg 01/09/25 10:40 01/09/25 12:13 Enoxaparin 30 Mg/0.3 Ml Syringe SUB-Q 30 mg DAILY SERENA Administration Finasteride 5 mg 01/09/25 09:00 01/09/25 10:04 Finasteride 5 Mg Tablet PO 5 mg DAILY SERENA Administration Hydroxychloroquine Sulfate 200 mg 01/08/25 17:00 01/09/25 17:10 Hydroxychloroquine Sulfate 200 Mg Tablet PO 200 mg BID SERENA Administration Ceftriaxone Sodium 1 gm/ 50 mls @ 100 mls/hr 01/09/25 06:00 01/10/25 06:05 Sodium Chloride IVPB Infused Q24H SERENA Infusion Levetiracetam 1,000 mg 01/08/25 21:00 01/09/25 21:19 Levetiracetam 500 Mg Tablet PO 1,000 mg Q12HR SERENA Administration Lidocaine 1 patch 01/09/25 09:00 01/09/25 10:01 Lidocaine 5% Patch TRANSDERM 1 patch DAILY SERENA Administration Miscellaneous Information 1 each 01/09/25 00:01 01/09/25 09:[address] Of Application XX 02/08/25 00:00 Not Given CLARIFY SERENA Pantoprazole Sodium 40 mg 01/09/25 09:00 01/09/25 10:02 Pantoprazole 40 Mg Tablet PO 40 mg QAM SERENA Administration Pregabalin 100 mg 01/09/25 09:00 01/09/25 10:04 Pregabalin (*Crx) 50 Mg Capsule PO 100 mg QAM SERENA Administration Pregabalin 200 mg 01/08/25 21:00 01/09/25 21:19 Pregabalin (*Crx) 50 Mg Capsule PO 200 mg HS SERENA Administration Sotalol HCl 120 mg 01/08/25 21:00 01/09/25 21:20 Sotalol Hcl 40 Mg Tablet PO Not Given Q12HR SERENA Tamsulosin HCl 0.4 mg 01/08/25 17:00 01/09/25 17:10 Tamsulosin Hcl 0.4 Mg Capsule PO 0.4 mg BID SERENA Administration Radiology Results: ITS Impressions Chest X-Ray 01/09/25 14:14 Impression: No acute cardiopulmonary abnormality. Labs Labs: Laboratory Results - last 24 hr 01/09/25 01/09/25 01/10/25 14:24 17:03 05:24 WBC 7.5 RBC 4.62 Hgb 13.3 L Hct 42.0 MCV 90.9 D MCH 28.8 MCHC 31.7 L RDW 15.0 H Plt Count 247 MPV 8.6 Sodium 135 L 136 L Potassium 4.1 3.7 Chloride 102 106 Carbon Dioxide 25 19 L Anion Gap 8 11 BUN 19 17 Creatinine 1.29 1.05 Estim Creat Clear Calc 42 52 Estimated GFR 54 L > 60 Glucose 200 H 135 H Lactic Acid 2.3 H 2.5 H Calcium 9.0 8.8 Total Bilirubin 1.4 H 1.6 H AST 31 26 ALT 21 18 Alkaline Phosphatase 59 58 Total Protein 7.2 7.3 Albumin 3.6 3.6 Quality VTE Prophylaxis VTE prophylaxis: mechanical ordered and pharmacologic ordered ( Lovenox)
[2025-01-10 08:46] VITALS: O2SAT 97
[2025-01-10] MEDS: FINASTERIDE 5 MG TABLET PO (09:03)
[2025-01-10] MEDS: PREGABALIN (*CRX) 50 MG CAPSULE 100 MG PO (09:03)
[2025-01-10] MEDS: LIPASE/AMYLASE/PROTEASE 12,000 UNITS CAP 3 CAP PO ×3 (09:03→16:16)
[2025-01-10] MEDS: CLOPIDOGREL BISULFATE 75 MG TABLET PO (09:03)
[2025-01-10] MEDS: [UNRECOGNIZED DRUG - OTHER] 1 EACH XX (09:04)
[2025-01-10] MEDS: PANTOPRAZOLE 40 MG TABLET PO (09:04)
[2025-01-10] MEDS: ENOXAPARIN 30 MG/0.3 ML SYRINGE SUB-Q (09:04)
[2025-01-10] MEDS: HYDROXYCHLOROQUINE SULFATE 200 MG TABLET PO ×2 (09:04→16:17)
[2025-01-10] MEDS: TAMSULOSIN HCL 0.4 MG CAPSULE PO ×2 (09:04→16:17)
[2025-01-10] MEDS: LIDOCAINE 5% PATCH 1 PATCH TRANSDERM (09:05)
[2025-01-10] MEDS: HYDROcodone/acetaminophen (*CRX) 10-325 MG TABLET 1 TAB PO ×2 (12:17→21:03)
[2025-01-10 14:00] VITALS: BP 106/63; PULSE 59; RESP 18; TEMP 36.3; O2SAT 100
[2025-01-10 20:10] VITALS: BP 110/61; PULSE 71; RESP 18; TEMP 37.2; O2SAT 97
[2025-01-10] MEDS: PREGABALIN (*CRX) 50 MG CAPSULE 200 MG PO (20:21)
[2025-01-10] MEDS: ATORVASTATIN 40 MG TABLET 80 MG PO (20:22)
[2025-01-11 05:24] VITALS: BP 100/52; PULSE 59; RESP 18; TEMP 37.6; O2SAT 100
[2025-01-11 05:42] LABS: Hematocrit 32.5 % (42.0-52.0); Hemoglobin 10.3 g/dL (14.0-18.0); Mean Corpuscular HGB Conc 31.7 g/dl (32-36); Mean Corpuscular Hemoglobin 28.2 pg (26-34); Mean Corpuscular Volume 89.0 fl (80-100); Platelet Count Result 227 k/mm3 (150-375); Red Blood Count 3.65 M/mm3 (4.6-6.20); White Blood Count 8.3 K/mm3 (4.5-10.0)
[2025-01-11] MEDS: BETHANECHOL CHLORIDE 10 MG TABLET PO ×2 (05:43→14:55)
[2025-01-11] MEDS: cefTRIAXone 1 GM in SODIUM CHLORIDE 0.9% IV 50 ML 100 ML IVPB (05:44)
[2025-01-11 06:04] LABS: Alanine Aminotransferase 16 U/L (6-50); Albumin Level 3.1 g/dL (3.5-5.1); Alkaline Phosphatase 55 U/L (38-126); Anion Gap 7 mmol/L (4-12); Aspartate Amino Transferase 25 U/L (17-59); Bilirubin,Total 0.9 mg/dL (0.2-1.3); Blood Urea Nitrogen 16 mg/dL (9-20); Calcium 8.7 mg/dL (8.4-10.2); Carbon Dioxide 24 mmol/L (22-30); Chloride 104 mmol/L (98-107); Estimated CRCL calculation 54 ml/min; Estimated Glomerular Filt Rate > 60; Glucose 134 mg/dL (65-110); Potassium 3.8 mmol/L (3.4-5.0); Sodium 135 mmol/L (137-145); Total Protein 6.3 g/dL (6.3-8.2)
[2025-01-11 10:13] VITALS: PULSE 59
[2025-01-11] MEDS: LIPASE/AMYLASE/PROTEASE 12,000 UNITS CAP 3 CAP PO ×3 (10:13→16:34)
[2025-01-11] MEDS: HYDROXYCHLOROQUINE SULFATE 200 MG TABLET PO ×2 (10:13→16:34)
[2025-01-11] MEDS: TAMSULOSIN HCL 0.4 MG CAPSULE PO ×2 (10:13→16:34)
[2025-01-11] MEDS: ASPIRIN 81 MG CHEWABLE TABLET PO (10:13)
[2025-01-11] MEDS: CLOPIDOGREL BISULFATE 75 MG TABLET PO (10:14)
[2025-01-11] MEDS: PREGABALIN (*CRX) 50 MG CAPSULE 100 MG PO (10:14)
[2025-01-11] MEDS: FINASTERIDE 5 MG TABLET PO (10:14)
[2025-01-11] MEDS: PANTOPRAZOLE 40 MG TABLET PO (10:14)
[2025-01-11] MEDS: ENOXAPARIN 30 MG/0.3 ML SYRINGE SUB-Q (10:14)
[2025-01-11] MEDS: LIDOCAINE 5% PATCH 1 PATCH TRANSDERM (10:17)
[2025-01-11 14:00] VITALS: BP 108/63; PULSE 54; RESP 16; TEMP 36.4; O2SAT 100
--- NOTE | 2025-01-11 16:09 | P.PNIM_ITS ---
Progress Note: A&P Assessment and Plan (1) Generalized weakness: Code(s): R53.1 - Weakness Status: Acute (2) Acute UTI: Code(s): N39.0 - Urinary tract infection, site not specified Status: Acute (3) Atrial fibrillation: Code(s): I48.91 - Unspecified atrial fibrillation Status: Acute (4) BPH (benign prostatic hyperplasia): Code(s): N40.0 - Benign prostatic hyperplasia without lower urinary tract symptoms Status: Acute (5) Diabetes mellitus: Code(s): E11.9 - Type 2 diabetes mellitus without complications Status: Acute (6) Hyperlipidemia: Code(s): E78.5 - Hyperlipidemia, unspecified Status: Acute (7) Hypertension: Code(s): I10 - Essential (primary) hypertension Status: Acute (8) Pancreatic insufficiency: Code(s): K86.89 - Other specified diseases of pancreas Status: Acute (9) Seizure after head injury: Code(s): R56.1 - Post traumatic seizures Status: Acute (10) Nondisplaced zone I fracture of sacrum: Code(s): S32.110A - Nondisplaced Zone I fracture of sacrum, initial encounter for closed fracture Status: Acute Plan 1.Generalized weakness Likely secondary to UTI/physical taken she Chest x-ray negative for pneumonia Continue physical therapy and occupational therapy continue Cefuroxime 500 mg BID until 01/12 2. UTI UA reveals positive nitrite and leukocytes Continue Cefuroxime 500 mg BID until 01/12 Urine culture grew use 50,000-100,000 colony-forming unit mixed urogenital arun is clinically insignificant. 3. Type 2 diabetes mellitus A1c 6.5% Discontinue sitagliptin due to his lack of appetite POCT, sliding scale, hypoglycemia protocol 4. Pancreatic insufficiency Continue pancreatic enzyme 5. Suspected seizure He had multiple falls while ago, suspected secondary to seizure episode, was placed on Keppra. Attempted to remove Keppra and he started having multiple fall episode-decided to continue Keppra indefinitely Continue Keppra 1 g p.o. b.i.d. 6. Permanent atrial fibrillation Status post Watchman placement 2017 Continue sotalol 120 mg p.o. b.i.d. 7. 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 BPH Continue tonsils 9. Neuropathic pain Continue pregabalin 100 mg q.a.m. and 100 mg q.h.s. 10. hypotension NS 500 cc bolus hold any antihypertensive medication check blood pressure right after the bolus if he continues to be hypotensive will give additional 500 cc bolus 11. None displaced fracture extending across the S4 segment and minimal displaced fracture at the L6 segment Lidocaine patch, [place] 5 mg q.6 p.r.n. Physical and occupational therapy 12. Disposition Pending Physical and Occupational assessment [facility] or home with HH Time Spent With Patient Time: 25 minutes Subjective Date/time seen: 01/11/25 16:09 Interval history: No acute event overnight. No fever or chills overnight. He reports feeling better. He participates with physical therapy. He is aware of to go as the [facility] or home with HH. Review of Systems Review of Systems: All systems reviewed & are unremarkable except as noted in HPI and below Exam Narrative: APPEARANCE: No acute distress, nontoxic, comfortable EYES: EOMI HEENT: Dry mucous membrane, Normocephalic RESPIRATORY: No respiratory distress Clear to auscultation bilaterally with no rhonchi wheezing or rales. CARDIOVASCULAR: RRR, S1 and S2 without murmurs rubs or gallops. ABDOMINAL: Soft, nontender, nondistended, no rebound or guarding MSK: Dry skin, moves his extremities spontaneously, 4/5 left-sided motor weakness-from CVA NEURO: Awake and alert. Following commands, speech normal, no focal deficits SKIN:: Warm, dry. No rashes lesions or abrasions PSYCHIATRIC: Bright affect Objective Data Vital Signs Vital Signs: Vital Signs - 24 hr 01/10/25 20:00 01/10/25 20:10 01/11/25 05:24 Temperature 37.2 C 37.6 C Pulse Rate 71 59 L Respiratory Rate 18 18 Blood Pressure 110/61 100/52 L Pulse Oximetry 97 100 Oxygen Delivery Room Air 01/11/25 08:00 01/11/25 08:00 01/11/25 10:13 Temperature Pulse Rate 59 L Respiratory Rate Blood Pressure Pulse Oximetry Oxygen Delivery Room Air Room Air Intake/Output Intake/Output: Intake & Output 01/08/25 01/09/25 01/10/25 01/11/25 23:59 23:59 23:59 23:59 Intake Total 1530 240 054 7348 Output Total 200 1100 400 Balance 1530 -39 -260 1051 Meds/Results Medications: Active Medications Generic Name Dose Route Start Last Admin Trade Name Freq PRN Reason Stop Dose Admin Hydrocodone Bitart/Acetaminophen 1 tab 01/09/25 08:46 01/10/25 21:03 Hydrocodone/Acetaminophen (*Crx) 10-325 Mg Tablet PO 1 tab Q6H PRN Administration Pain (Scale Score 7-10) Amlodipine Besylate 5 mg 01/09/25 09:00 01/11/25 10:13 Amlodipine Besylate 5 Mg Tablet PO 5 mg DAILY SERENA Administration Lipase/Protease/Amylase 3 cap 01/08/25 13:00 01/11/25 14:55 Lipase/Amylase/Protease 12,000 Units Cap PO 3 cap TID SERENA Administration Aspirin 81 mg 01/09/25 09:00 01/11/25 10:13 Aspirin 81 Mg Chewable Tablet PO 81 mg Q48H SERENA Administration Atorvastatin Calcium 80 mg 01/08/25 21:00 01/10/25 20:22 Atorvastatin 40 Mg Tablet PO 80 mg HS SERENA Administration Bethanechol Chloride 10 mg 01/08/25 16:30 01/11/25 14:56 Bethanechol Chloride 10 Mg Tablet PO Not Given TIDAC REPLACED BY [facility] Cefuroxime Axetil 500 mg 01/12/25 09:00 Cefuroxime Axetil 250 Mg Tablet PO 01/12/25 21:01 Q12HR SERENA Clopidogrel Bisulfate 75 mg 01/09/25 09:00 01/11/25 10:14 Clopidogrel Bisulfate 75 Mg Tablet PO 75 mg DAILY SERENA Administration Enoxaparin Sodium 30 mg 01/09/25 10:40 01/11/25 10:14 Enoxaparin 30 Mg/0.3 Ml Syringe SUB-Q 30 mg DAILY SERENA Administration Finasteride 5 mg 01/09/25 09:00 01/11/25 10:14 Finasteride 5 Mg Tablet PO 5 mg DAILY SERENA Administration Hydroxychloroquine Sulfate 200 mg 01/08/25 17:00 01/11/25 10:13 Hydroxychloroquine Sulfate 200 Mg Tablet PO 200 mg BID SERENA Administration Levetiracetam 1,000 mg 01/08/25 21:00 01/11/25 10:13 Levetiracetam 500 Mg Tablet PO 1,000 mg Q12HR SERENA Administration Lidocaine 1 patch 01/09/25 09:00 01/11/25 10:17 Lidocaine 5% Patch TRANSDERM 1 patch DAILY SERENA Administration Pantoprazole Sodium 40 mg 01/09/25 09:00 01/11/25 10:14 Pantoprazole 40 Mg Tablet PO 40 mg QAM SERENA Administration Pregabalin 100 mg 01/09/25 09:00 01/11/25 10:14 Pregabalin (*Crx) 50 Mg Capsule PO 100 mg QAM SERENA Administration Pregabalin 200 mg 01/08/25 21:00 01/10/25 20:21 Pregabalin (*Crx) 50 Mg Capsule PO 200 mg HS SERENA Administration Sotalol HCl 120 mg 01/08/25 21:00 01/11/25 10:13 Sotalol Hcl 40 Mg Tablet PO 120 mg Q12HR SERENA Administration Tamsulosin HCl 0.4 mg 01/08/25 17:00 01/11/25 10:13 Tamsulosin Hcl 0.4 Mg Capsule PO 0.4 mg BID SERENA Administration Radiology Results: ITS Impressions Chest X-Ray 01/09/25 14:14 Impression: No acute cardiopulmonary abnormality. Labs Labs: Laboratory Results - last 24 hr 01/11/25 05:25 WBC 8.3 RBC 3.65 L Hgb 10.3 L D Hct 32.5 L MCV 89.0 MCH 28.2 MCHC 31.7 L RDW 14.9 H Plt Count 227 MPV 8.6 Sodium 135 L Potassium 3.8 Chloride 104 Carbon Dioxide 24 Anion Gap 7 BUN 16 Creatinine 1.00 Estim Creat Clear Calc 54 Estimated GFR > 60 Glucose 134 H Calcium 8.7 Total Bilirubin 0.9 AST 25 ALT 16 Alkaline Phosphatase 55 Total Protein 6.3 Albumin 3.1 L
[2025-01-11] MEDS: HYDROcodone/acetaminophen (*CRX) 10-325 MG TABLET 1 TAB PO ×2 (16:37→22:22)
[2025-01-11] MEDS: KETOROLAC 15 MG/ML VIAL (*BKC) IV PUSH (20:17)
[2025-01-11 20:20] VITALS: BP 97/57; PULSE 56; RESP 20; TEMP 37.2; O2SAT 100
[2025-01-11 20:26] VITALS: PULSE 55
[2025-01-11] MEDS: ATORVASTATIN 40 MG TABLET 80 MG PO (20:32)
[2025-01-11] MEDS: PREGABALIN (*CRX) 50 MG CAPSULE 200 MG PO (20:32)
[2025-01-12] MEDS: BETHANECHOL CHLORIDE 10 MG TABLET PO ×3 (05:28→17:56)
[2025-01-12 05:41] VITALS: BP 96/62; PULSE 49; RESP 20; TEMP 36.8; O2SAT 99
[2025-01-12] MEDS: PANTOPRAZOLE 40 MG TABLET PO (08:37)
[2025-01-12] MEDS: LIPASE/AMYLASE/PROTEASE 12,000 UNITS CAP 3 CAP PO ×3 (08:37→17:56)
[2025-01-12] MEDS: PREGABALIN (*CRX) 50 MG CAPSULE 100 MG PO (08:37)
[2025-01-12] MEDS: HYDROXYCHLOROQUINE SULFATE 200 MG TABLET PO ×2 (08:37→17:56)
[2025-01-12] MEDS: TAMSULOSIN HCL 0.4 MG CAPSULE PO ×2 (08:38→17:56)
[2025-01-12] MEDS: FINASTERIDE 5 MG TABLET PO (08:38)
[2025-01-12] MEDS: CLOPIDOGREL BISULFATE 75 MG TABLET PO (08:38)
[2025-01-12] MEDS: ENOXAPARIN 40 MG/0.4 ML SYRINGE SUB-Q (08:40)
[2025-01-12] MEDS: LIDOCAINE 5% PATCH 1 PATCH TRANSDERM (08:40)
[2025-01-12 08:46] VITALS: PULSE 50
[2025-01-12 08:57] VITALS: BP 108/67; PULSE 50; O2SAT 100
--- NOTE | 2025-01-12 13:06 | PM.IMPN ---
Progress Note: A&P Assessment and Plan (1) Generalized weakness: Code(s): R53.1 - Weakness Status: Acute (2) Acute UTI: Code(s): N39.0 - Urinary tract infection, site not specified Status: Acute (3) Atrial fibrillation: Code(s): I48.91 - Unspecified atrial fibrillation Status: Acute (4) BPH (benign prostatic hyperplasia): Code(s): N40.0 - Benign prostatic hyperplasia without lower urinary tract symptoms Status: Acute (5) Diabetes mellitus: Code(s): E11.9 - Type 2 diabetes mellitus without complications Status: Acute (6) Hyperlipidemia: Code(s): E78.5 - Hyperlipidemia, unspecified Status: Acute (7) Hypertension: Code(s): I10 - Essential (primary) hypertension Status: Acute (8) Pancreatic insufficiency: Code(s): K86.89 - Other specified diseases of pancreas Status: Acute (9) Seizure after head injury: Code(s): R56.1 - Post traumatic seizures Status: Acute (10) Nondisplaced zone I fracture of sacrum: Code(s): S32.110A - Nondisplaced Zone I fracture of sacrum, initial encounter for closed fracture Status: Acute Plan 1.Generalized weakness Likely secondary to UTI/physical taken she Chest x-ray negative for pneumonia Continue physical therapy and occupational therapy continue Cefuroxime 500 mg BID until 01/12 2. UTI UA reveals positive nitrite and leukocytes Continue Cefuroxime 500 mg BID until 01/12 Urine culture grew use 50,000-100,000 colony-forming unit mixed urogenital arun is clinically insignificant. 3. Type 2 diabetes mellitus A1c 6.5% Discontinue sitagliptin due to his lack of appetite POCT, sliding scale, hypoglycemia protocol 4. Pancreatic insufficiency Continue pancreatic enzyme 5. Suspected seizure He had multiple falls while ago, suspected secondary to seizure episode, was placed on Keppra. Attempted to remove Keppra and he started having multiple fall episode-decided to continue Keppra indefinitely Continue Keppra 1 g p.o. b.i.d. 6. Permanent atrial fibrillation Status post Watchman placement 2017 Continue sotalol 120 mg p.o. b.i.d. 7. 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 BPH Continue tonsils 9. Neuropathic pain Continue pregabalin 100 mg q.a.m. and 100 mg q.h.s. 10. hypotension NS 500 cc bolus hold any antihypertensive medication check blood pressure right after the bolus if he continues to be hypotensive will give additional 500 cc bolus 11. None displaced fracture extending across the S4 segment and minimal displaced fracture at the L6 segment Lidocaine patch, [place] 5 mg q.6 p.r.n. Physical and occupational therapy 12. Disposition Pending Physical and Occupational assessment awaiting [facility] placement Subjective Date/time seen: 01/12/25 13:06 Interval history: Comfortable at bedside awaiting placement Review of Systems Review of Systems: All systems reviewed & are unremarkable except as noted in HPI and below Exam Narrative: APPEARANCE: No acute distress, nontoxic, comfortable EYES: EOMI HEENT: Dry mucous membrane, Normocephalic RESPIRATORY: No respiratory distress Clear to auscultation bilaterally with no rhonchi wheezing or rales. CARDIOVASCULAR: RRR, S1 and S2 without murmurs rubs or gallops. ABDOMINAL: Soft, nontender, nondistended, no rebound or guarding MSK: Dry skin, moves his extremities spontaneously, 4/5 left-sided motor weakness-from CVA NEURO: Awake and alert. Following commands, speech normal, no focal deficits SKIN:: Warm, dry. No rashes lesions or abrasions PSYCHIATRIC: Bright affect Objective Data Vital Signs Vital Signs: Vital Signs - 24 hr 01/11/25 14:00 01/11/25 20:00 01/11/25 20:20 Temperature 97.6 F 98.9 F Pulse Rate 54 L 56 L Respiratory Rate 16 20 Blood Pressure 108/63 97/57 L Pulse Oximetry 100 100 Oxygen Delivery Room Air 01/11/25 20:26 01/12/25 05:41 01/12/25 08:00 Temperature 98.3 F Pulse Rate 55 L 49 L Respiratory Rate 20 Blood Pressure 96/62 L Pulse Oximetry 99 Oxygen Delivery Room Air 01/12/25 08:46 01/12/25 08:57 Temperature Pulse Rate 50 L 50 L Respiratory Rate Blood Pressure 108/67 Pulse Oximetry 100 Oxygen Delivery Intake/Output Intake/Output: Intake & Output 01/09/25 01/10/25 01/11/25 01/12/25 23:59 23:59 23:59 23:59 Intake Total 858 957 3399 1410 Output Total 200 1100 950 Balance -39 -510 283 5479 Meds/Results Medications: Active Medications Generic Name Dose Route Start Last Admin Trade Name Freq PRN Reason Stop Dose Admin Hydrocodone Bitart/Acetaminophen 1 tab 01/09/25 08:46 01/11/25 22:22 Hydrocodone/Acetaminophen (*Crx) 10-325 Mg Tablet PO 1 tab Q6H PRN Administration Pain (Scale Score 7-10) Amlodipine Besylate 5 mg 01/09/25 09:00 01/12/25 08:45 Amlodipine Besylate 5 Mg Tablet PO Not Given DAILY SERENA Lipase/Protease/Amylase 3 cap 01/08/25 13:00 01/12/25 13:04 Lipase/Amylase/Protease 12,000 Units Cap PO 3 cap TID SERENA Administration Aspirin 81 mg 01/09/25 09:00 01/11/25 10:13 Aspirin 81 Mg Chewable Tablet PO 81 mg Q48H SERENA Administration Atorvastatin Calcium 80 mg 01/08/25 21:00 01/11/25 20:32 Atorvastatin 40 Mg Tablet PO 80 mg HS SERENA Administration Bethanechol Chloride 10 mg 01/08/25 16:30 01/12/25 11:42 Bethanechol Chloride 10 Mg Tablet PO 10 mg TIDAC SERENA Administration Cefuroxime Axetil 500 mg 01/12/25 09:00 01/12/25 08:36 Cefuroxime Axetil 250 Mg Tablet PO 01/12/25 21:01 500 mg Q12HR SERENA Administration Clopidogrel Bisulfate 75 mg 01/09/25 09:00 01/12/25 08:38 Clopidogrel Bisulfate 75 Mg Tablet PO 75 mg DAILY SERENA Administration Enoxaparin Sodium 40 mg 01/12/25 09:00 01/12/25 08:40 Enoxaparin 40 Mg/0.4 Ml Syringe SUB-Q 40 mg DAILY SERENA Administration Finasteride 5 mg 01/09/25 09:00 01/12/25 08:38 Finasteride 5 Mg Tablet PO 5 mg DAILY SERENA Administration Hydroxychloroquine Sulfate 200 mg 01/08/25 17:00 01/12/25 08:37 Hydroxychloroquine Sulfate 200 Mg Tablet PO 200 mg BID SERENA Administration Levetiracetam 1,000 mg 01/08/25 21:00 01/12/25 08:38 Levetiracetam 500 Mg Tablet PO 1,000 mg Q12HR SERENA Administration Lidocaine 1 patch 01/09/25 09:00 01/12/25 08:40 Lidocaine 5% Patch TRANSDERM 1 patch DAILY SERENA Administration Pantoprazole Sodium 40 mg 01/09/25 09:00 01/12/25 08:37 Pantoprazole 40 Mg Tablet PO 40 mg QAM SERENA Administration Pregabalin 100 mg 01/09/25 09:00 01/12/25 08:37 Pregabalin (*Crx) 50 Mg Capsule PO 100 mg QAM SERENA Administration Pregabalin 200 mg 01/08/25 21:00 01/11/25 20:32 Pregabalin (*Crx) 50 Mg Capsule PO 200 mg HS SERENA Administration Sotalol HCl 120 mg 01/08/25 21:00 01/12/25 08:46 Sotalol Hcl 40 Mg Tablet PO Not Given Q12HR SERENA Tamsulosin HCl 0.4 mg 01/08/25 17:00 01/12/25 08:38 Tamsulosin Hcl 0.4 Mg Capsule PO 0.4 mg BID SERENA Administration Radiology Results: ITS Impressions Chest X-Ray 01/09/25 14:14 Impression: No acute cardiopulmonary abnormality. Shoulder X-Ray 01/12/25 07:51 IMPRESSION: Mild right glenohumeral and moderate acromioclavicular osteoarthritis. No acute osseous abnormality. Quality VTE Prophylaxis VTE prophylaxis: mechanical ordered and pharmacologic ordered ( Lovenox)
[2025-01-12 14:00] VITALS: BP 121/65; PULSE 74; RESP 20; TEMP 36.3; O2SAT 100
[2025-01-12] MEDS: BISACODYL 5 MG TABLET EC PO (14:27)
[2025-01-12 20:09] VITALS: BP 114/62; PULSE 62; RESP 16; TEMP 36.2; O2SAT 100
[2025-01-12] MEDS: PREGABALIN (*CRX) 50 MG CAPSULE 200 MG PO (20:33)
[2025-01-12] MEDS: ATORVASTATIN 40 MG TABLET 80 MG PO (20:33)
[2025-01-12 20:34] VITALS: PULSE 78
[2025-01-13] MEDS: BETHANECHOL CHLORIDE 10 MG TABLET PO ×3 (04:54→17:16)
[2025-01-13 05:12] VITALS: BP 109/60; PULSE 99; RESP 16; TEMP 36.6; O2SAT 97
[2025-01-13] MEDS: LIDOCAINE 5% PATCH 1 PATCH TRANSDERM (08:59)
[2025-01-13] MEDS: LIPASE/AMYLASE/PROTEASE 12,000 UNITS CAP 3 CAP PO ×2 (08:59→17:16)
[2025-01-13] MEDS: HYDROXYCHLOROQUINE SULFATE 200 MG TABLET PO ×2 (09:00→17:16)
[2025-01-13] MEDS: FINASTERIDE 5 MG TABLET PO (09:00)
[2025-01-13] MEDS: PREGABALIN (*CRX) 50 MG CAPSULE 100 MG PO (09:00)
[2025-01-13] MEDS: CLOPIDOGREL BISULFATE 75 MG TABLET PO (09:00)
[2025-01-13] MEDS: ASPIRIN 81 MG CHEWABLE TABLET PO (09:00)
[2025-01-13] MEDS: TAMSULOSIN HCL 0.4 MG CAPSULE PO ×2 (09:00→17:16)
[2025-01-13] MEDS: ENOXAPARIN 40 MG/0.4 ML SYRINGE SUB-Q (09:00)
[2025-01-13] MEDS: PANTOPRAZOLE 40 MG TABLET PO (09:00)
[2025-01-13 09:01] VITALS: PULSE 50
[2025-01-13 14:32] VITALS: BP 109/57; PULSE 65; RESP 18; TEMP 36.4; O2SAT 100
[2025-01-13] MEDS: HYDROcodone/acetaminophen (*CRX) 10-325 MG TABLET 1 TAB PO (14:42)
--- NOTE | 2025-01-13 17:07 | PM.IMPN ---
Progress Note: A&P Assessment and Plan (1) Generalized weakness: Code(s): R53.1 - Weakness Status: Acute (2) Acute UTI: Code(s): N39.0 - Urinary tract infection, site not specified Status: Acute (3) Atrial fibrillation: Code(s): I48.91 - Unspecified atrial fibrillation Status: Acute (4) BPH (benign prostatic hyperplasia): Code(s): N40.0 - Benign prostatic hyperplasia without lower urinary tract symptoms Status: Acute (5) Diabetes mellitus: Code(s): E11.9 - Type 2 diabetes mellitus without complications Status: Acute (6) Hyperlipidemia: Code(s): E78.5 - Hyperlipidemia, unspecified Status: Acute (7) Hypertension: Code(s): I10 - Essential (primary) hypertension Status: Acute (8) Pancreatic insufficiency: Code(s): K86.89 - Other specified diseases of pancreas Status: Acute (9) Seizure after head injury: Code(s): R56.1 - Post traumatic seizures Status: Acute (10) Nondisplaced zone I fracture of sacrum: Code(s): S32.110A - Nondisplaced Zone I fracture of sacrum, initial encounter for closed fracture Status: Acute Plan Patient has had consistent bradycardia. Sotalol has been administered on and off due to the bradycardia. Decrease sotalol from 120 mg p.o. b.i.d. to 80 mg p.o. b.i.d. starting tonight of 01/13/2025. Check EKG to document QTC interval on 01/14/2025 in the evening. Start telemetry to monitor rhythm. ----- 1.Generalized weakness Likely secondary to UTI/physical taken she Chest x-ray negative for pneumonia Continue physical therapy and occupational therapy continue Cefuroxime 500 mg BID until 01/12 2. UTI UA reveals positive nitrite and leukocytes Continue Cefuroxime 500 mg BID until 01/12 Urine culture grew use 50,000-100,000 colony-forming unit mixed urogenital arun is clinically insignificant. 3. Type 2 diabetes mellitus A1c 6.5% Discontinue sitagliptin due to his lack of appetite POCT, sliding scale, hypoglycemia protocol 4. Pancreatic insufficiency Continue pancreatic enzyme 5. Suspected seizure He had multiple falls while ago, suspected secondary to seizure episode, was placed on Keppra. Attempted to remove Keppra and he started having multiple fall episode-decided to continue Keppra indefinitely Continue Keppra 1 g p.o. b.i.d. 6. Permanent atrial fibrillation Status post Watchman placement 2018 Sotalol changes as above 7. 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 BPH Continue tonsils 9. Neuropathic pain Continue pregabalin 100 mg q.a.m. and 100 mg q.h.s. 10. hypotension Had episode of hypotension. Resolved status post 500 cc bolus. Amlodipine has been continued. 11. None displaced fracture extending across the S4 segment and minimal displaced fracture at the L6 segment Lidocaine patch, [place] 5 mg q.6 p.r.n. Physical and occupational therapy 12. Disposition Continue PT OT eval and training Okay for discharge to [facility] per care coordination. Holding off on discharge for monitoring sotalol decrease. Patient would like to be full code. Saline lock IV. Fall precautions. Ambulate with assistance. Continue [employer] aspirin and Plavix. SCDs. Subjective Date/time seen: 01/13/25 17:07 Interval history: No major acute overnight events. Patient has no complaints. New symptoms to report. Review of Systems Review of Systems: All systems reviewed & are unremarkable except as noted in HPI and below Exam Const: General: comfortable and no acute distress Eyes: Pupils: Equal, round and reactive pupils present Neck: Neck: supple Resp: Effort & Inspection: normal respiratory effort Auscultation: clear to auscultation bilaterally Cardio: Rate: bradycardic Rhythm: regular rhythm GI: Inspection: non-distended GI Palp: Yes Soft to palpation Neuro: Other: 4/5 motor strength left extremities Extrem: General: no edema Objective Data Vital Signs Vital Signs: Vital Signs - 24 hr 01/12/25 20:09 01/12/25 20:34 01/12/25 20:34 Temperature 97.2 F L Pulse Rate 62 78 Respiratory Rate 16 Blood Pressure 114/62 Pulse Oximetry 100 Oxygen Delivery Room Air 01/13/25 05:12 01/13/25 08:00 01/13/25 09:01 Temperature 97.8 F Pulse Rate 99 50 L Respiratory Rate 16 Blood Pressure 109/60 Pulse Oximetry 97 Oxygen Delivery Room Air 01/13/25 14:32 Temperature 97.6 F Pulse Rate 65 Respiratory Rate 18 Blood Pressure 109/57 L Pulse Oximetry 100 Oxygen Delivery Intake/Output Intake/Output: Intake & Output 01/10/25 01/11/25 01/12/25 01/13/25 23:59 23:59 23:59 23:59 Intake Total 840 1698 2170 480 Output Total 1798 299 6119 1000 Balance -260 748 820 -520 Meds/Results Medications: Active Medications Generic Name Dose Route Start Last Admin Trade Name Freq PRN Reason Stop Dose Admin Hydrocodone Bitart/Acetaminophen 1 tab 01/09/25 08:46 01/13/25 14:42 Hydrocodone/Acetaminophen (*Crx) 10-325 Mg Tablet PO 1 tab Q6H PRN Administration Pain (Scale Score 7-10) Amlodipine Besylate 5 mg 01/09/25 09:00 01/13/25 09:00 Amlodipine Besylate 5 Mg Tablet PO 5 mg DAILY SERENA Administration Lipase/Protease/Amylase 3 cap 01/08/25 13:00 01/13/25 14:06 Lipase/Amylase/Protease 12,000 Units Cap PO Not Given TID SERENA Aspirin 81 mg 01/09/25 09:00 01/13/25 09:00 Aspirin 81 Mg Chewable Tablet PO 81 mg Q48H SERENA Administration Atorvastatin Calcium 80 mg 01/08/25 21:00 01/12/25 20:33 Atorvastatin 40 Mg Tablet PO 80 mg HS SERENA Administration Bethanechol Chloride 10 mg 01/08/25 16:30 01/13/25 11:44 Bethanechol Chloride 10 Mg Tablet PO 10 mg TIDAC SERENA Administration Clopidogrel Bisulfate 75 mg 01/09/25 09:00 01/13/25 09:00 Clopidogrel Bisulfate 75 Mg Tablet PO 75 mg DAILY SERENA Administration Enoxaparin Sodium 40 mg 01/12/25 09:00 01/13/25 09:00 Enoxaparin 40 Mg/0.4 Ml Syringe SUB-Q 40 mg DAILY SERENA Administration Finasteride 5 mg 01/09/25 09:00 01/13/25 09:00 Finasteride 5 Mg Tablet PO 5 mg DAILY SERENA Administration Hydroxychloroquine Sulfate 200 mg 01/08/25 17:00 01/13/25 09:00 Hydroxychloroquine Sulfate 200 Mg Tablet PO 200 mg BID SERENA Administration Levetiracetam 1,000 mg 01/08/25 21:00 01/13/25 09:00 Levetiracetam 500 Mg Tablet PO 1,000 mg Q12HR SERENA Administration Lidocaine 1 patch 01/09/25 09:00 01/13/25 08:59 Lidocaine 5% Patch TRANSDERM 1 patch DAILY SERENA Administration Pantoprazole Sodium 40 mg 01/09/25 09:00 01/13/25 09:00 Pantoprazole 40 Mg Tablet PO 40 mg QAM SERENA Administration Pregabalin 100 mg 01/09/25 09:00 01/13/25 09:00 Pregabalin (*Crx) 50 Mg Capsule PO 100 mg QAM SERENA Administration Pregabalin 200 mg 01/08/25 21:00 01/12/25 20:33 Pregabalin (*Crx) 50 Mg Capsule PO 200 mg HS SERENA Administration Sotalol HCl 80 mg 01/13/25 21:00 Sotalol Hcl 40 Mg Tablet PO Q12HR SERENA Tamsulosin HCl 0.4 mg 01/08/25 17:00 01/13/25 09:00 Tamsulosin Hcl 0.4 Mg Capsule PO 0.4 mg BID SERENA Administration Radiology Results: ITS Impressions Chest X-Ray 01/09/25 14:14 Impression: No acute cardiopulmonary abnormality. Shoulder X-Ray 01/12/25 07:51 IMPRESSION: Mild right glenohumeral and moderate acromioclavicular osteoarthritis. No acute osseous abnormality. Quality VTE Prophylaxis VTE prophylaxis: mechanical ordered and pharmacologic ordered ( Lovenox)
[2025-01-13 20:00] VITALS: PULSE 59
[2025-01-13 20:28] VITALS: PULSE 61
[2025-01-13] MEDS: PREGABALIN (*CRX) 50 MG CAPSULE 200 MG PO (20:28)
[2025-01-13] MEDS: ATORVASTATIN 40 MG TABLET 80 MG PO (20:28)
[2025-01-13 20:57] VITALS: BP 102/57; PULSE 61; RESP 14; TEMP 36.8; O2SAT 100
[2025-01-14] VITALS (13 sets, daily range): BP systolic 101–113; BP diastolic 52–68; PULSE 50–54; RESP 12–16; TEMP 36.2–36.8; O2SAT 100
[2025-01-14] MEDS: BETHANECHOL CHLORIDE 10 MG TABLET PO ×3 (05:17→18:07)
[2025-01-14] MEDS: LIPASE/AMYLASE/PROTEASE 12,000 UNITS CAP 3 CAP PO ×3 (08:32→18:07)
[2025-01-14] MEDS: HYDROcodone/acetaminophen (*CRX) 10-325 MG TABLET 1 TAB PO (08:33)
[2025-01-14] MEDS: TAMSULOSIN HCL 0.4 MG CAPSULE PO ×2 (08:33→18:07)
[2025-01-14] MEDS: PREGABALIN (*CRX) 50 MG CAPSULE 100 MG PO (08:33)
[2025-01-14] MEDS: PANTOPRAZOLE 40 MG TABLET PO (08:34)
[2025-01-14] MEDS: HYDROXYCHLOROQUINE SULFATE 200 MG TABLET PO ×2 (08:34→18:07)
[2025-01-14] MEDS: CLOPIDOGREL BISULFATE 75 MG TABLET PO (08:34)
[2025-01-14] MEDS: FINASTERIDE 5 MG TABLET PO (08:34)
[2025-01-14] MEDS: ENOXAPARIN 40 MG/0.4 ML SYRINGE SUB-Q (08:35)
[2025-01-14] MEDS: LIDOCAINE 5% PATCH 1 PATCH TRANSDERM (08:36)
--- NOTE | 2025-01-14 13:08 | PM.IMPN ---
Progress Note: A&P Assessment and Plan (1) Generalized weakness: Code(s): R53.1 - Weakness Status: Acute (2) Acute UTI: Code(s): N39.0 - Urinary tract infection, site not specified Status: Acute (3) Atrial fibrillation: Code(s): I48.91 - Unspecified atrial fibrillation Status: Acute (4) BPH (benign prostatic hyperplasia): Code(s): N40.0 - Benign prostatic hyperplasia without lower urinary tract symptoms Status: Acute (5) Diabetes mellitus: Code(s): E11.9 - Type 2 diabetes mellitus without complications Status: Acute (6) Hyperlipidemia: Code(s): E78.5 - Hyperlipidemia, unspecified Status: Acute (7) Hypertension: Code(s): I10 - Essential (primary) hypertension Status: Acute (8) Pancreatic insufficiency: Code(s): K86.89 - Other specified diseases of pancreas Status: Acute (9) Seizure after head injury: Code(s): R56.1 - Post traumatic seizures Status: Acute (10) Nondisplaced zone I fracture of sacrum: Code(s): S32.110A - Nondisplaced Zone I fracture of sacrum, initial encounter for closed fracture Status: Acute Plan Patient has had consistent bradycardia. Sotalol has been administered on and off due to the bradycardia. Decrease sotalol from 120 mg p.o. b.i.d. to 80 mg p.o. b.i.d. starting tonight of 01/13/2025. Check EKG to document QTC interval on 01/14/2025 in the evening. Start telemetry to monitor rhythm. ----- 1.Generalized weakness Likely secondary to UTI/physical taken she Chest x-ray negative for pneumonia Continue physical therapy and occupational therapy continue Cefuroxime 500 mg BID until 01/12 2. UTI UA reveals positive nitrite and leukocytes Continue Cefuroxime 500 mg BID until 01/12 Urine culture grew use 50,000-100,000 colony-forming unit mixed urogenital arun is clinically insignificant. 3. Type 2 diabetes mellitus A1c 6.5% Discontinue sitagliptin due to his lack of appetite POCT, sliding scale, hypoglycemia protocol 4. Pancreatic insufficiency Continue pancreatic enzyme 5. Suspected seizure He had multiple falls while ago, suspected secondary to seizure episode, was placed on Keppra. Attempted to remove Keppra and he started having multiple fall episode-decided to continue Keppra indefinitely Continue Keppra 1 g p.o. b.i.d. 6. Permanent atrial fibrillation Status post Watchman placement 2018 Decreased Sotalol to 40mg bid today due to Soft blood pressure and bradycardia monitor one more day 7. 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 BPH Continue tonsils 9. Neuropathic pain Continue pregabalin 100 mg q.a.m. and 100 mg q.h.s. 10. hypotension Had episode of hypotension. Resolved status post 500 cc bolus. Amlodipine has been continued. 11. None displaced fracture extending across the S4 segment and minimal displaced fracture at the L6 segment Lidocaine patch, [place] 5 mg q.6 p.r.n. Physical and occupational therapy 12. Disposition Continue PT OT eval and training Okay for discharge to [facility] per care coordination. Holding off on discharge for monitoring sotalol decrease. Patient would like to be full code. Saline lock IV. Fall precautions. Ambulate with assistance. Continue [employer] aspirin and Plavix. DVT prophylaxis on Sq Lovenox Subjective Date/time seen: 01/14/25 13:08 Interval history: Comfortable at bedside however Decreasing sotalol and monitoring vital signs Review of Systems Review of Systems: All systems reviewed & are unremarkable except as noted in HPI and below Exam Narrative: APPEARANCE: No acute distress, nontoxic, comfortable EYES: EOMI HEENT: Dry mucous membrane, Normocephalic RESPIRATORY: No respiratory distress Clear to auscultation bilaterally with no rhonchi wheezing or rales. CARDIOVASCULAR: RRR, S1 and S2 without murmurs rubs or gallops. ABDOMINAL: Soft, nontender, nondistended, no rebound or guarding MSK: Dry skin, moves his extremities spontaneously, 4/5 left-sided motor weakness-from CVA NEURO: Awake and alert. Following commands, speech normal, no focal deficits SKIN:: Warm, dry. No rashes lesions or abrasions PSYCHIATRIC: Bright affect Const: General: comfortable and no acute distress Eyes: Pupils: Equal, round and reactive pupils present Neck: Neck: supple Resp: Effort & Inspection: normal respiratory effort Auscultation: clear to auscultation bilaterally Cardio: Rate: bradycardic Rhythm: regular rhythm GI: Inspection: non-distended Neuro: Cranial nerves: Yes Equal, round and reactive pupils present Other: 4/5 motor strength left extremities Extrem: General: no edema Objective Data Vital Signs Vital Signs: Vital Signs - 24 hr 01/13/25 14:32 01/13/25 20:00 01/13/25 20:28 Temperature 97.6 F Pulse Rate 65 59 L 61 Respiratory Rate 18 Blood Pressure 109/57 L Pulse Oximetry 100 Oxygen Delivery 01/13/25 20:28 01/13/25 20:57 01/14/25 00:00 Temperature 98.2 F Pulse Rate 61 52 L Respiratory Rate 14 Blood Pressure 102/57 L Pulse Oximetry 100 Oxygen Delivery Room Air 01/14/25 04:00 01/14/25 05:46 01/14/25 08:00 Temperature 97.2 F L Pulse Rate 53 L 52 L 50 L Respiratory Rate 14 Blood Pressure 101/52 L Pulse Oximetry 100 Oxygen Delivery 01/14/25 08:23 01/14/25 08:41 01/14/25 10:21 Temperature 97.2 F L Pulse Rate 54 L 54 L 53 L Respiratory Rate 16 Blood Pressure 112/58 L Pulse Oximetry 100 Oxygen Delivery Intake/Output Intake/Output: Intake & Output 01/11/25 01/12/25 01/13/25 01/14/25 23:59 23:59 23:59 23:59 Intake Total 1698 2170 720 640 Output Total 950 1350 1600 750 Balance 748 820 -880 -110 Meds/Results Medications: Active Medications Generic Name Dose Route Start Last Admin Trade Name Freq PRN Reason Stop Dose Admin Hydrocodone Bitart/Acetaminophen 1 tab 01/09/25 08:46 01/14/25 08:33 Hydrocodone/Acetaminophen (*Crx) 10-325 Mg Tablet PO 1 tab Q6H PRN Administration Pain (Scale Score 7-10) Amlodipine Besylate 5 mg 01/09/25 09:00 01/14/25 08:41 Amlodipine Besylate 5 Mg Tablet PO Not Given DAILY SERENA Lipase/Protease/Amylase 3 cap 01/08/25 13:00 01/14/25 12:15 Lipase/Amylase/Protease 12,000 Units Cap PO 3 cap TID SERENA Administration Aspirin 81 mg 01/09/25 09:00 01/13/25 09:00 Aspirin 81 Mg Chewable Tablet PO 81 mg Q48H SERENA Administration Atorvastatin Calcium 80 mg 01/08/25 21:00 01/13/25 20:28 Atorvastatin 40 Mg Tablet PO 80 mg HS SERENA Administration Bethanechol Chloride 10 mg 01/08/25 16:30 01/14/25 12:16 Bethanechol Chloride 10 Mg Tablet PO 10 mg TIDAC SERENA Administration Clopidogrel Bisulfate 75 mg 01/09/25 09:00 01/14/25 08:34 Clopidogrel Bisulfate 75 Mg Tablet PO 75 mg DAILY SERENA Administration Enoxaparin Sodium 40 mg 01/12/25 09:00 01/14/25 08:35 Enoxaparin 40 Mg/0.4 Ml Syringe SUB-Q 40 mg DAILY SERENA Administration Finasteride 5 mg 01/09/25 09:00 01/14/25 08:34 Finasteride 5 Mg Tablet PO 5 mg DAILY SERENA Administration Hydroxychloroquine Sulfate 200 mg 01/08/25 17:00 01/14/25 08:34 Hydroxychloroquine Sulfate 200 Mg Tablet PO 200 mg BID SERENA Administration Levetiracetam 1,000 mg 01/08/25 21:00 01/14/25 08:34 Levetiracetam 500 Mg Tablet PO 1,000 mg Q12HR SERENA Administration Lidocaine 1 patch 01/09/25 09:00 01/14/25 08:36 Lidocaine 5% Patch TRANSDERM 1 patch DAILY SERENA Administration Pantoprazole Sodium 40 mg 01/09/25 09:00 01/14/25 08:34 Pantoprazole 40 Mg Tablet PO 40 mg QAM SERENA Administration Pregabalin 100 mg 01/09/25 09:00 01/14/25 08:33 Pregabalin (*Crx) 50 Mg Capsule PO 100 mg QAM SERENA Administration Pregabalin 200 mg 01/08/25 21:00 01/13/25 20:28 Pregabalin (*Crx) 50 Mg Capsule PO 200 mg HS SERENA Administration Sotalol HCl 40 mg 01/14/25 09:30 01/14/25 10:21 Sotalol Hcl 40 Mg Tablet PO 40 mg Q12HR SERENA Administration Tamsulosin HCl 0.4 mg 01/08/25 17:00 01/14/25 08:33 Tamsulosin Hcl 0.4 Mg Capsule PO 0.4 mg BID SERENA Administration Radiology Results: ITS Impressions Chest X-Ray 01/09/25 14:14 Impression: No acute cardiopulmonary abnormality. Shoulder X-Ray 01/12/25 07:51 IMPRESSION: Mild right glenohumeral and moderate acromioclavicular osteoarthritis. No acute osseous abnormality. Quality VTE Prophylaxis VTE prophylaxis: mechanical ordered and pharmacologic ordered ( Lovenox)
[2025-01-14] MEDS: PREGABALIN (*CRX) 50 MG CAPSULE 200 MG PO (20:12)
[2025-01-14] MEDS: ATORVASTATIN 40 MG TABLET 80 MG PO (20:12)
[2025-01-15] VITALS (12 sets, daily range): BP systolic 112–143; BP diastolic 59–77; PULSE 48–71; RESP 16; TEMP 36.3–36.6; O2SAT 100
[2025-01-15] MEDS: BETHANECHOL CHLORIDE 10 MG TABLET PO ×3 (05:37→16:49)
[2025-01-15 06:52] LABS: Hematocrit 36.4 % (42.0-52.0); Hemoglobin 11.7 g/dL (14.0-18.0); Immature Granulocyte Percent A 0.3 % (0-0.5); Lymphocytes Absolute Auto 1.95 K/mm3 (0.9-3.2); Mean Corpuscular HGB Conc 32.1 g/dl (32-36); Mean Corpuscular Hemoglobin 28.5 pg (26-34); Mean Corpuscular Volume 88.6 fl (80-100); Nucleated Red Blood Cells Absolute Auto 0.000 K/mm3 (0.0-0.012); Nucleated Red Blood Cells Perc 0.0 % (0.0-0.2); Platelet Count Result 274 k/mm3 (150-375); Red Blood Count 4.11 M/mm3 (4.6-6.20); White Blood Count 5.9 K/mm3 (4.5-10.0)
--- NOTE | 2025-01-15 07:00 | ECG_ITS ---
Test Date: 2025-01-15 07:28:05 Measurements Intervals [place] Rate: 53 P: 73 CT: 174 QRS: 58 QRSD: 85 T: 51 QT: 416 QTc: 391 Interpretive Statements SINUS BRADYCARDIA ST ELEVATION, PROBABLY EARLY REPOLARIZATION [ST ELEVATION WITH NORMALLY INFLECTED T-WAVE] Compared to ECG 01/09/2025 14:01:59 ST (T wave) deviation now present Early repolarization now present Electronically Signed On 01-15-2025 12:36:57 CDT by Kyler Ennis M.D.
[2025-01-15 07:16] LABS: Alanine Aminotransferase 29 U/L (6-50); Albumin Level 3.2 g/dL (3.5-5.1); Alkaline Phosphatase 67 U/L (38-126); Anion Gap 6 mmol/L (4-12); Aspartate Amino Transferase 32 U/L (17-59); Bilirubin,Total 0.6 mg/dL (0.2-1.3); Blood Urea Nitrogen 11 mg/dL (9-20); Calcium 9.2 mg/dL (8.4-10.2); Carbon Dioxide 28 mmol/L (22-30); Chloride 104 mmol/L (98-107); Estimated CRCL calculation 55 ml/min; Estimated Glomerular Filt Rate > 60; Glucose 153 mg/dL (65-110); Magnesium 1.6 mg/dL (1.6-2.3); Potassium 3.9 mmol/L (3.4-5.0); Sodium 138 mmol/L (137-145); Total Protein 6.5 g/dL (6.3-8.2)
--- NOTE | 2025-01-15 09:10 | PCPTNOTE ---
Attempted to see patient for PT, however patient declined due to not feeling well. Pt. reported his stomach is upset. RN notified.
--- NOTE | 2025-01-15 10:19 | PC.NURSE ---
Patient complaining of hiccups and abd pain at this time. Patient also vomiting. MD notified new order placed. Okay to delay morning medications while patient is nauseated/vomiting per MD
--- NOTE | 2025-01-15 10:21 | PCNWS ---
Weekly nutritional screen. Patient is tolerating current diet with adequate intake. No weight loss reported. No nutritional needs at this time.
[2025-01-15] MEDS: LIPASE/AMYLASE/PROTEASE 12,000 UNITS CAP 3 CAP PO ×2 (12:11→16:48)
[2025-01-15] MEDS: PREGABALIN (*CRX) 50 MG CAPSULE 100 MG PO (12:11)
[2025-01-15] MEDS: HYDROcodone/acetaminophen (*CRX) 10-325 MG TABLET 1 TAB PO ×2 (12:12→19:44)
[2025-01-15] MEDS: ASPIRIN 81 MG CHEWABLE TABLET PO (12:12)
[2025-01-15] MEDS: HYDROXYCHLOROQUINE SULFATE 200 MG TABLET PO (12:12)
[2025-01-15] MEDS: PANTOPRAZOLE 40 MG TABLET PO (12:12)
[2025-01-15] MEDS: TAMSULOSIN HCL 0.4 MG CAPSULE PO ×2 (12:12→16:49)
[2025-01-15] MEDS: CLOPIDOGREL BISULFATE 75 MG TABLET PO (12:13)
[2025-01-15] MEDS: FINASTERIDE 5 MG TABLET PO (12:13)
[2025-01-15] MEDS: ENOXAPARIN 40 MG/0.4 ML SYRINGE SUB-Q (12:15)
[2025-01-15] MEDS: GABAPENTIN 100 MG CAPSULE PO ×2 (12:20→16:49)
--- NOTE | 2025-01-15 12:39 | PM.IMPN ---
Progress Note: A&P Assessment and Plan (1) Generalized weakness: Code(s): R53.1 - Weakness Status: Acute (2) Acute UTI: Code(s): N39.0 - Urinary tract infection, site not specified Status: Acute (3) Atrial fibrillation: Code(s): I48.91 - Unspecified atrial fibrillation Status: Acute (4) BPH (benign prostatic hyperplasia): Code(s): N40.0 - Benign prostatic hyperplasia without lower urinary tract symptoms Status: Acute (5) Diabetes mellitus: Code(s): E11.9 - Type 2 diabetes mellitus without complications Status: Acute (6) Hyperlipidemia: Code(s): E78.5 - Hyperlipidemia, unspecified Status: Acute (7) Hypertension: Code(s): I10 - Essential (primary) hypertension Status: Acute (8) Pancreatic insufficiency: Code(s): K86.89 - Other specified diseases of pancreas Status: Acute (9) Seizure after head injury: Code(s): R56.1 - Post traumatic seizures Status: Acute (10) Nondisplaced zone I fracture of sacrum: Code(s): S32.110A - Nondisplaced Zone I fracture of sacrum, initial encounter for closed fracture Status: Acute Plan Patient has had consistent bradycardia. Sotalol has been administered on and off due to the bradycardia. Decrease sotalol from 120 mg p.o. b.i.d. to 80 mg p.o. b.i.d. starting tonight of 01/13/2025. Check EKG to document QTC interval on 01/14/2025 in the evening. Start telemetry to monitor rhythm. ----- 1.Generalized weakness Likely secondary to UTI/physical taken she Chest x-ray negative for pneumonia Continue physical therapy and occupational therapy continue Cefuroxime 500 mg BID until 01/12 2. UTI UA reveals positive nitrite and leukocytes Continue Cefuroxime 500 mg BID until 01/12 Urine culture grew use 50,000-100,000 colony-forming unit mixed urogenital arun is clinically insignificant. 3. Type 2 diabetes mellitus A1c 6.5% Discontinue sitagliptin due to his lack of appetite POCT, sliding scale, hypoglycemia protocol 4. Pancreatic insufficiency Continue pancreatic enzyme 5. Suspected seizure He had multiple falls while ago, suspected secondary to seizure episode, was placed on Keppra. Attempted to remove Keppra and he started having multiple fall episode-decided to continue Keppra indefinitely Continue Keppra 1 g p.o. b.i.d. 6. Permanent atrial fibrillation Status post Watchman placement 2018 Sotalol On hold due to Bradycardia and soft blood pressure cardiology consulted for input 7. 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 BPH Continue tonsils 9. Neuropathic pain Continue pregabalin 100 mg q.a.m. and 100 mg q.h.s. 10. hypotension Had episode of hypotension. Resolved status post 500 cc bolus. Amlodipine has been continued. 11. None displaced fracture extending across the S4 segment and minimal displaced fracture at the L6 segment Lidocaine patch, [place] 5 mg q.6 p.r.n. Physical and occupational therapy 12. Disposition Continue PT OT eval and training Okay for discharge to [facility] per care coordination. Holding off on discharge for monitoring sotalol decrease. Hiccups Had an episode of vomiting CT AP no acute changes started on Gabapentin monitor Patient would like to be full code. Saline lock IV. Fall precautions. Ambulate with assistance. 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 DVT prophylaxis on Sq Lovenox Subjective Date/time seen: 01/15/25 12:39 Interval history: Comfortable at bedside Patient having hiccups and vomited this morning, CT Ap no acute changes Review of Systems Review of Systems: All systems reviewed & are unremarkable except as noted in HPI and below Exam Narrative: APPEARANCE: No acute distress, nontoxic, comfortable EYES: EOMI HEENT: Dry mucous membrane, Normocephalic RESPIRATORY: No respiratory distress Clear to auscultation bilaterally with no rhonchi wheezing or rales. CARDIOVASCULAR: RRR, S1 and S2 without murmurs rubs or gallops. ABDOMINAL: Soft, nontender, nondistended, no rebound or guarding MSK: Dry skin, moves his extremities spontaneously, 4/5 left-sided motor weakness-from CVA NEURO: Awake and alert. Following commands, speech normal, no focal deficits SKIN:: Warm, dry. No rashes lesions or abrasions PSYCHIATRIC: Bright affect Const: General: comfortable and no acute distress Eyes: Pupils: Equal, round and reactive pupils present Neck: Neck: supple Resp: Effort & Inspection: normal respiratory effort Auscultation: clear to auscultation bilaterally Cardio: Rate: bradycardic Rhythm: regular rhythm GI: Inspection: non-distended Neuro: Cranial nerves: Yes Equal, round and reactive pupils present Other: 4/5 motor strength left extremities Extrem: General: no edema Objective Data Vital Signs Vital Signs: Vital Signs - 24 hr 01/14/25 14:00 01/14/25 16:00 01/14/25 20:00 Temperature 98.3 F Pulse Rate 51 L 53 L 52 L Respiratory Rate 16 Blood Pressure 113/62 Pulse Oximetry 100 Oxygen Delivery 01/14/25 20:13 01/14/25 20:13 01/14/25 21:09 Temperature 97.3 F L Pulse Rate 52 L 52 L 54 L Respiratory Rate 12 Blood Pressure 113/68 Pulse Oximetry 100 Oxygen Delivery Room Air 01/15/25 00:00 01/15/25 04:00 01/15/25 06:00 Temperature 97.3 F L Pulse Rate 55 L 53 L 55 L Respiratory Rate 16 Blood Pressure 115/70 Pulse Oximetry 100 Oxygen Delivery 01/15/25 10:30 01/15/25 12:10 01/15/25 12:15 Temperature Pulse Rate 48 L 48 L Respiratory Rate 16 Blood Pressure 125/73 Pulse Oximetry 100 Oxygen Delivery Room Air Intake/Output Intake/Output: Intake & Output 01/12/25 01/13/25 01/14/25 01/15/25 23:59 23:59 23:59 23:59 Intake Total 2170 720 1920 250 Output Total 1350 0942 633 0097 Balance 820 -880 1170 -850 Meds/Results Medications: Active Medications Generic Name Dose Route Start Last Admin Trade Name Freq PRN Reason Stop Dose Admin Hydrocodone Bitart/Acetaminophen 1 tab 01/09/25 08:46 01/15/25 12:12 Hydrocodone/Acetaminophen (*Crx) 10-325 Mg Tablet PO 1 tab Q6H PRN Administration Pain (Scale Score 7-10) Amlodipine Besylate 5 mg 01/09/25 09:00 01/15/25 12:15 Amlodipine Besylate 5 Mg Tablet PO Not Given DAILY SERENA Lipase/Protease/Amylase 3 cap 01/08/25 13:00 01/15/25 12:11 Lipase/Amylase/Protease 12,000 Units Cap PO 3 cap TID SERENA Administration Aspirin 81 mg 01/09/25 09:00 01/15/25 12:12 Aspirin 81 Mg Chewable Tablet PO 81 mg Q48H SERENA Administration Atorvastatin Calcium 80 mg 01/08/25 21:00 01/14/25 20:12 Atorvastatin 40 Mg Tablet PO 80 mg HS SERENA Administration Bethanechol Chloride 10 mg 01/08/25 16:30 01/15/25 12:20 Bethanechol Chloride 10 Mg Tablet PO 10 mg TIDAC SERENA Administration Clopidogrel Bisulfate 75 mg 01/09/25 09:00 01/15/25 12:13 Clopidogrel Bisulfate 75 Mg Tablet PO 75 mg DAILY SERENA Administration Enoxaparin Sodium 40 mg 01/12/25 09:00 01/15/25 12:15 Enoxaparin 40 Mg/0.4 Ml Syringe SUB-Q 40 mg DAILY SERENA Administration Finasteride 5 mg 01/09/25 09:00 01/15/25 12:13 Finasteride 5 Mg Tablet PO 5 mg DAILY SERENA Administration Gabapentin 100 mg 01/15/25 13:00 01/15/25 12:20 Gabapentin 100 Mg Capsule PO 100 mg TID SERENA Administration Hydroxychloroquine Sulfate 200 mg 01/08/25 17:00 01/15/25 12:12 Hydroxychloroquine Sulfate 200 Mg Tablet PO 200 mg BID SERENA Administration Levetiracetam 1,000 mg 01/08/25 21:00 01/15/25 12:11 Levetiracetam 500 Mg Tablet PO 1,000 mg Q12HR SERENA Administration Lidocaine 1 patch 01/09/25 09:00 01/14/25 08:36 Lidocaine 5% Patch TRANSDERM 1 patch DAILY SERENA Administration Pantoprazole Sodium 40 mg 01/09/25 09:00 01/15/25 12:12 Pantoprazole 40 Mg Tablet PO 40 mg QAM SERENA Administration Pregabalin 100 mg 01/09/25 09:00 01/15/25 12:11 Pregabalin (*Crx) 50 Mg Capsule PO 100 mg QAM SERENA Administration Pregabalin 200 mg 01/08/25 21:00 01/14/25 20:12 Pregabalin (*Crx) 50 Mg Capsule PO 200 mg HS SERENA Administration Sotalol HCl 40 mg 01/14/25 09:30 01/15/25 12:15 Sotalol Hcl 40 Mg Tablet PO Not Given Q12HR SERENA Tamsulosin HCl 0.4 mg 01/08/25 17:00 01/15/25 12:12 Tamsulosin Hcl 0.4 Mg Capsule PO 0.4 mg BID SERENA Administration Radiology Results: ITS Impressions Chest X-Ray 01/09/25 14:14 Impression: No acute cardiopulmonary abnormality. Shoulder X-Ray 01/12/25 07:51 IMPRESSION: Mild right glenohumeral and moderate acromioclavicular osteoarthritis. No acute osseous abnormality. Labs Labs: Laboratory Results - last 24 hr 01/15/25 05:20 WBC 5.9 RBC 4.11 L Hgb 11.7 L Hct 36.4 L MCV 88.6 MCH 28.5 MCHC 32.1 RDW 14.6 H Plt Count 274 MPV 9.2 Immature Gran % (Auto) 0.3 Neut % (Auto) 52.0 Lymph % (Auto) 33.0 [place] % (Auto) 9.3 H Eos % (Auto) 4.4 Baso % (Auto) 1.0 Lymph # (Auto) 1.95 [place] # (Auto) 0.6 Eos # (Auto) 0.3 Baso # (Auto) 0.1 Abs Immat Gran (auto) 0.02 Absolute Neuts (auto) 3.1 Absolute Nucleated RBC 0.000 Nucleated RBC % 0.0 Sodium 138 Potassium 3.9 Chloride 104 Carbon Dioxide 28 Anion Gap 6 BUN 11 D Creatinine 0.99 Estim Creat Clear Calc 55 Estimated GFR > 60 Glucose 153 H Calcium 9.2 Magnesium 1.6 Total Bilirubin 0.6 AST 32 ALT 29 Alkaline Phosphatase 67 Total Protein 6.5 Albumin 3.2 L Quality VTE Prophylaxis VTE prophylaxis: mechanical ordered and pharmacologic ordered ( Lovenox)
--- NOTE | 2025-01-15 13:49 | PCPTNOTE ---
Attempted to see patient for PT, however patient declined due to not feeling well. Patient reported he is still not feeling well this afternoon and feels he can not do therapy today.
--- NOTE | 2025-01-15 14:31 | PCOTNOTE ---
Patient states he has had testing today, just doesn't feel well, not today.
[2025-01-15] MEDS: ATORVASTATIN 40 MG TABLET 80 MG PO (20:44)
[2025-01-15] MEDS: PREGABALIN (*CRX) 50 MG CAPSULE 200 MG PO (20:44)
[2025-01-16] VITALS (13 sets, daily range): BP systolic 111–120; BP diastolic 59–69; PULSE 55–69; RESP 16–18; TEMP 35.7–36.8; O2SAT 100
[2025-01-16] MEDS: BETHANECHOL CHLORIDE 10 MG TABLET PO ×3 (05:23→18:07)
[2025-01-16 06:24] LABS: Hematocrit 34.8 % (42.0-52.0); Hemoglobin 11.2 g/dL (14.0-18.0); Immature Granulocyte Percent A 0.3 % (0-0.5); Lymphocytes Absolute Auto 2.24 K/mm3 (0.9-3.2); Mean Corpuscular HGB Conc 32.2 g/dl (32-36); Mean Corpuscular Hemoglobin 28.6 pg (26-34); Mean Corpuscular Volume 89.0 fl (80-100); Nucleated Red Blood Cells Absolute Auto 0.000 K/mm3 (0.0-0.012); Nucleated Red Blood Cells Perc 0.0 % (0.0-0.2); Platelet Count Result 257 k/mm3 (150-375); Red Blood Count 3.91 M/mm3 (4.6-6.20); White Blood Count 6.0 K/mm3 (4.5-10.0)
[2025-01-16 06:41] LABS: Alanine Aminotransferase 30 U/L (6-50); Albumin Level 3.1 g/dL (3.5-5.1); Alkaline Phosphatase 70 U/L (38-126); Anion Gap 5 mmol/L (4-12); Aspartate Amino Transferase 42 U/L (17-59); Bilirubin,Total 0.6 mg/dL (0.2-1.3); Blood Urea Nitrogen 11 mg/dL (9-20); Calcium 9.1 mg/dL (8.4-10.2); Carbon Dioxide 29 mmol/L (22-30); Chloride 102 mmol/L (98-107); Estimated CRCL calculation 55 ml/min; Estimated Glomerular Filt Rate > 60; Glucose 150 mg/dL (65-110); Magnesium 1.6 mg/dL (1.6-2.3); Potassium 3.6 mmol/L (3.4-5.0); Sodium 136 mmol/L (137-145); Total Protein 6.4 g/dL (6.3-8.2)
[2025-01-16] MEDS: ENOXAPARIN 40 MG/0.4 ML SYRINGE SUB-Q (08:45)
[2025-01-16] MEDS: HYDROcodone/acetaminophen (*CRX) 10-325 MG TABLET 1 TAB PO (08:45)
[2025-01-16] MEDS: TAMSULOSIN HCL 0.4 MG CAPSULE PO ×2 (08:46→18:06)
[2025-01-16] MEDS: FINASTERIDE 5 MG TABLET PO (08:46)
[2025-01-16] MEDS: LIPASE/AMYLASE/PROTEASE 12,000 UNITS CAP 3 CAP PO ×3 (08:46→18:06)
[2025-01-16] MEDS: PANTOPRAZOLE 40 MG TABLET PO (08:46)
[2025-01-16] MEDS: PREGABALIN (*CRX) 50 MG CAPSULE 100 MG PO (08:46)
[2025-01-16] MEDS: GABAPENTIN 100 MG CAPSULE PO (08:46)
[2025-01-16] MEDS: CLOPIDOGREL BISULFATE 75 MG TABLET PO (08:47)
--- NOTE | 2025-01-16 11:42 | ECG_ITS ---
Test Date: 2025-01-16 12:28:41 Measurements Intervals [place] Rate: 56 P: 73 AR: 161 QRS: 45 QRSD: 94 T: 40 QT: 419 QTc: 406 Interpretive Statements SINUS BRADYCARDIA Compared to ECG 01/15/2025 07:28:05 ST (T wave) deviation no longer present Early repolarization no longer present Electronically Signed On 01-16-2025 13:29:47 CDT by Kyler Ennis M.D.
--- NOTE | 2025-01-16 11:46 | P.PNIM_ITS ---
Progress Note: A&P Assessment and Plan (1) Generalized weakness: Code(s): R53.1 - Weakness Status: Acute (2) Acute UTI: Code(s): N39.0 - Urinary tract infection, site not specified Status: Acute (3) Atrial fibrillation: Code(s): I48.91 - Unspecified atrial fibrillation Status: Acute (4) BPH (benign prostatic hyperplasia): Code(s): N40.0 - Benign prostatic hyperplasia without lower urinary tract symptoms Status: Acute (5) Diabetes mellitus: Code(s): E11.9 - Type 2 diabetes mellitus without complications Status: Acute (6) Hyperlipidemia: Code(s): E78.5 - Hyperlipidemia, unspecified Status: Acute (7) Hypertension: Code(s): I10 - Essential (primary) hypertension Status: Acute (8) Pancreatic insufficiency: Code(s): K86.89 - Other specified diseases of pancreas Status: Acute (9) Seizure after head injury: Code(s): R56.1 - Post traumatic seizures Status: Acute (10) Nondisplaced zone I fracture of sacrum: Code(s): S32.110A - Nondisplaced Zone I fracture of sacrum, initial encounter for closed fracture Status: Acute Plan Patient has had consistent bradycardia. Sotalol has been administered on and off due to the bradycardia. Decrease sotalol from 120 mg p.o. b.i.d. to 80 mg p.o. b.i.d. starting tonight of 01/13/2025. Check EKG to document QTC interval on 01/14/2025 in the evening. Start telemetry to monitor rhythm. ----- 1.Generalized weakness Likely secondary to UTI/physical taken she Chest x-ray negative for pneumonia Continue physical therapy and occupational therapy continue Cefuroxime 500 mg BID until 01/12 2. UTI UA reveals positive nitrite and leukocytes completed antibiotics Urine culture grew use 50,000-100,000 colony-forming unit mixed urogenital arun is clinically insignificant. 3. Type 2 diabetes mellitus A1c 6.5% Discontinue sitagliptin due to his lack of appetite POCT, sliding scale, hypoglycemia protocol 4. Pancreatic insufficiency Continue pancreatic enzyme 5. Suspected seizure He had multiple falls while ago, suspected secondary to seizure episode, was placed on Keppra. Attempted to remove Keppra and he started having multiple fall episode-decided to continue Keppra indefinitely Continue Keppra 1 g p.o. b.i.d. 6. Permanent atrial fibrillation Status post Watchman placement 2018 Sotalol On hold due to Bradycardia and soft blood pressure cardiology consulted for input 7. 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 BPH Continue tonsils 9. Neuropathic pain Continue pregabalin 100 mg q.a.m. and 100 mg q.h.s. 10. hypotension Had episode of hypotension. Resolved status post 500 cc bolus. Amlodipine has been continued. 11. None displaced fracture extending across the S4 segment and minimal displaced fracture at the L6 segment Lidocaine patch, [place] 5 mg q.6 p.r.n. Physical and occupational therapy 12. Disposition Continue PT OT eval and training Okay for discharge to [facility] per care coordination. Holding off on discharge for monitoring sotalol decrease. Hiccups Still having repetitive bursts of hiccups CT AP no acute changes Stopped Gabapentin, now on Chlorpromazine, increased to 50mg tid PRN Hydrochloroquine on hold, EKG ordered CXR ordered monitor Patient would like to be full code. Saline lock IV. Fall precautions. Ambulat e with assistance. 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 DVT prophylaxis on Sq Lovenox Possible discharge tomorrow Subjective Date/time seen: 01/16/25 11:46 Interval history: Comfortable at bedside still having hiccups, unsure how long this has been in existence Review of Systems Review of Systems: All systems reviewed & are unremarkable except as noted in HPI and below Exam Narrative: APPEARANCE: No acute distress, nontoxic, comfortable EYES: EOMI HEENT: Dry mucous membrane, Normocephalic RESPIRATORY: No respiratory distress Clear to auscultation bilaterally with no rhonchi wheezing or rales. CARDIOVASCULAR: RRR, S1 and S2 without murmurs rubs or gallops. ABDOMINAL: Soft, nontender, nondistended, no rebound or guarding MSK: Dry skin, moves his extremities spontaneously, 4/5 left-sided motor weakness-from CVA NEURO: Awake and alert. Following commands, speech normal, no focal deficits SKIN:: Warm, dry. No rashes lesions or abrasions PSYCHIATRIC: Bright affect Const: General: comfortable and no acute distress Eyes: Pupils: Equal, round and reactive pupils present Neck: Neck: supple Resp: Effort & Inspection: normal respiratory effort Auscultation: clear to auscultation bilaterally Cardio: Rate: bradycardic Rhythm: regular rhythm GI: Inspection: non-distended Neuro: Cranial nerves: Yes Equal, round and reactive pupils present Other: 4/5 motor strength left extremities Extrem: General: no edema Objective Data Vital Signs Vital Signs: Vital Signs - 24 hr 01/15/25 12:00 01/15/25 12:10 01/15/25 12:15 Temperature Pulse Rate 54 L 48 L 48 L Respiratory Rate 16 Blood Pressure 125/73 Pulse Oximetry 100 Oxygen Delivery 01/15/25 14:00 01/15/25 16:00 01/15/25 20:00 Temperature 97.6 F Pulse Rate 67 60 60 Respiratory Rate 16 16 Blood Pressure 143/77 H Pulse Oximetry 100 100 Oxygen Delivery Room Air 01/15/25 20:00 01/15/25 20:44 01/15/25 21:25 Temperature 97.9 F Pulse Rate 71 63 57 L Respiratory Rate 16 Blood Pressure 112/59 L Pulse Oximetry 100 Oxygen Delivery 01/16/25 00:00 01/16/25 04:00 01/16/25 06:00 Temperature 96.3 F L Pulse Rate 62 59 L 57 L Respiratory Rate 16 Blood Pressure 111/60 Pulse Oximetry 100 Oxygen Delivery 01/16/25 08:47 Temperature Pulse Rate 69 Respiratory Rate Blood Pressure Pulse Oximetry Oxygen Delivery Intake/Output Intake/Output: Intake & Output 01/13/25 01/14/25 01/15/25 01/16/25 23:59 23:59 23:59 23:59 Intake Total 720 1920 740 250 Output Total 1383 830 8115 700 Balance -880 1170 -1260 -450 Meds/Results Medications: Active Medications Generic Name Dose Route Start Last Admin Trade Name Freq PRN Reason Stop Dose Admin Hydrocodone Bitart/Acetaminophen 1 tab 01/09/25 08:46 01/16/25 08:45 Hydrocodone/Acetaminophen (*Crx) 10-325 Mg Tablet PO 1 tab Q6H PRN Administration Pain (Scale Score 7-10) Amlodipine Besylate 5 mg 01/09/25 09:00 01/16/25 08:46 Amlodipine Besylate 5 Mg Tablet PO 5 mg DAILY SERENA Administration Lipase/Protease/Amylase 3 cap 01/08/25 13:00 01/16/25 08:46 Lipase/Amylase/Protease 12,000 Units Cap PO 3 cap TID SERENA Administration Aspirin 81 mg 01/09/25 09:00 01/15/25 12:12 Aspirin 81 Mg Chewable Tablet PO 81 mg Q48H SERENA Administration Atorvastatin Calcium 80 mg 01/08/25 21:00 01/15/25 20:44 Atorvastatin 40 Mg Tablet PO 80 mg HS SERENA Administration Bethanechol Chloride 10 mg 01/08/25 16:30 01/16/25 05:23 Bethanechol Chloride 10 Mg Tablet PO 10 mg TIDAC SERENA Administration Chlorpromazine HCl 50 mg 01/16/25 11:42 Chlorpromazine Hcl 25 Mg Tablet PO TID PRN Hiccups Clopidogrel Bisulfate 75 mg 01/09/25 09:00 01/16/25 08:47 Clopidogrel Bisulfate 75 Mg Tablet PO 75 mg DAILY SERENA Administration Enoxaparin Sodium 40 mg 01/12/25 09:00 01/16/25 08:45 Enoxaparin 40 Mg/0.4 Ml Syringe SUB-Q 40 mg DAILY SERENA Administration Finasteride 5 mg 01/09/25 09:00 01/16/25 08:46 Finasteride 5 Mg Tablet PO 5 mg DAILY SERENA Administration Hydroxychloroquine Sulfate 200 mg 01/08/25 17:00 01/15/25 16:49 Hydroxychloroquine Sulfate 200 Mg Tablet PO Not Given On Hold: 01/15/25 16:41 BID SERENA Levetiracetam 1,000 mg 01/08/25 21:00 01/16/25 08:46 Levetiracetam 500 Mg Tablet PO 1,000 mg Q12HR SERENA Administration Lidocaine 1 patch 01/09/25 09:00 01/16/25 08:37 Lidocaine 5% Patch TRANSDERM Not Given DAILY SERENA Pantoprazole Sodium 40 mg 01/09/25 09:00 01/16/25 08:46 Pantoprazole 40 Mg Tablet PO 40 mg QAM SERENA Administration Pregabalin 100 mg 01/09/25 09:00 01/16/25 08:46 Pregabalin (*Crx) 50 Mg Capsule PO 100 mg QAM SERENA Administration Pregabalin 200 mg 01/08/25 21:00 01/15/25 20:44 Pregabalin (*Crx) 50 Mg Capsule PO 200 mg HS SERENA Administration Sotalol HCl 40 mg 01/14/25 09:30 01/16/25 08:47 Sotalol Hcl 40 Mg Tablet PO 40 mg Q12HR SERENA Administration Tamsulosin HCl 0.4 mg 01/08/25 17:00 01/16/25 08:46 Tamsulosin Hcl 0.4 Mg Capsule PO 0.4 mg BID SERENA Administration Radiology Results: ITS Impressions Chest X-Ray 01/09/25 14:14 Impression: No acute cardiopulmonary abnormality. Shoulder X-Ray 01/12/25 07:51 IMPRESSION: Mild right glenohumeral and moderate acromioclavicular osteoarthritis. No acute osseous abnormality. Abdomen/Pelvis CT 01/15/25 12:06 IMPRESSION: No evidence of acute pathology in the abdomen and pelvis. Labs Labs: Laboratory Results - last 24 hr 01/16/25 05:00 WBC 6.0 RBC 3.91 L Hgb 11.2 L Hct 34.8 L MCV 89.0 MCH 28.6 MCHC 32.2 RDW 14.6 H Plt Count 257 MPV 9.3 Immature Gran % (Auto) 0.3 Neut % (Auto) 46.0 Lymph % (Auto) 37.3 [place] % (Auto) 10.7 H Eos % (Auto) 5.0 H Baso % (Auto) 0.7 Lymph # (Auto) 2.24 [place] # (Auto) 0.6 Eos # (Auto) 0.3 Baso # (Auto) 0.0 Abs Immat Gran (auto) 0.02 Absolute Neuts (auto) 2.8 Absolute Nucleated RBC 0.000 Nucleated RBC % 0.0 Sodium 136 L Potassium 3.6 Chloride 102 Carbon Dioxide 29 Anion Gap 5 BUN 11 Creatinine 0.99 Estim Creat Clear Calc 55 Estimated GFR > 60 Glucose 150 H Calcium 9.1 Magnesium 1.6 Total Bilirubin 0.6 AST 42 ALT 30 Alkaline Phosphatase 70 Total Protein 6.4 Albumin 3.1 L Quality VTE Prophylaxis VTE prophylaxis: mechanical ordered and pharmacologic ordered ( Lovenox)
--- NOTE | 2025-01-16 12:46 | PM.CNCAR ---
Assessment and Plan Assessment and plan (1) Atrial fibrillation: Code(s): I48.91 - Unspecified atrial fibrillation Status: Acute (2) Hyperlipidemia: Code(s): E78.5 - Hyperlipidemia, unspecified Status: Acute Plan 74 yo man with pAF sp Watchman (on sotalol 120mg PO BID), right CVA, HTN, and pancreatic insufficiency pw fall Sinus bradycardia -reducing the sotalol to 40 mg p.o. b.i.d. 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 b.i.d. -continue aspirin Hyperlipidemia -continue atorvastatin 80 mg every evening No further inpatient cardiac workup warranted at this time. Please call with additional questions. History of Present Illness History of Present Illness Consult date/time: 01/16/25 12:46 Requesting physician: Mahamed Pond MD Reason For Visit: Generalized Weakness/UTI Narrative: 74 yo man with pAF sp Watchman (on sotalol 120mg PO BID), right CVA, HTN, and pancreatic insufficiency pw fall. He did not have syncope. Denies chest pain and shortness of breath. Spoke with his who also confirms that he did not pass out nor complain of chest pain or shortness of breath. While hospitalized, he was noted to be in sinus bradycardia for which the sotalol dose was reduced to 40 mg p.o. b.i.d.. Review of Systems Cardiovascular: Cardiovascular: Reports as per HPI Respiratory: Respiratory: Reports as per HPI [facility] Past Medical History Medical History (Updated 01/10/25 @ 07:39 by Maribel Espinal MD) Seizure after head injury Pancreatic insufficiency Hypertension Hyperlipidemia Diabetes mellitus BPH (benign prostatic hyperplasia) Atrial fibrillation Family History Family History Father Lung disease Mother Heart attack Social History Social History Smoking status: Never smoker Second hand tobacco smoke exposure: No Alcohol intake: never Substance use: never Substance use type: does not use Lack of Transportation: No Lack of Food: Never True Current Housing: I Have Housing Concerned About Future Housing: No Difficulty Paying Gas/Electric Bills: No Difficulty Paying for Meds: No Currently Unemployed: No Education: Master's Degree or Higher Difficulty w/ Childcare or Family Care: No Spiritual care concerns: No Meds Home Medications and Allergies Home Medications ?Medication ?Instructions ?Recorded ?Confirmed ?Type amlodipine 5 mg tablet 5 mg PO DAILY 01/01/23 01/15/25 History aspirin 81 mg chewable tablet 81 mg PO Q48H 01/01/23 01/15/25 History (Aspirin Childrens) atorvastatin 80 mg tablet 80 mg PO HS 01/01/23 01/15/25 History bethanechol chloride 10 mg tablet 10 mg PO TID 01/01/23 01/15/25 History clopidogrel 75 mg tablet (Plavix) 75 mg PO DAILY 01/01/23 01/15/25 History finasteride 5 mg tablet 5 mg PO DAILY 01/01/23 01/15/25 History hydrocodone 10 mg-acetaminophen 1 tablet PO Q6H PRN Pain (Scale 01/01/23 01/15/25 History 325 mg tablet Score 7-10) hydroxychloroquine 200 mg tablet 200 mg PO BID 01/01/23 01/15/25 History levetiracetam 500 mg tablet 1,000 mg PO BID 01/01/23 01/15/25 History lipase 10,500-protease 3 cap PO TID 01/01/23 01/08/25 History 35,500-amylase 61,500 unit capsule,delayed rel (Pancreaze) pantoprazole 40 mg tablet,delayed 40 mg PO QAM 01/01/23 01/15/25 History release pregabalin 100 mg capsule 100 mg PO QAM 01/01/23 01/15/25 History pregabalin 100 mg capsule 200 mg PO HS 01/01/23 01/15/25 History sotalol 80 mg tablet 120 mg PO BID 01/01/23 01/15/25 History tamsulosin 0.4 mg capsule 0.4 mg PO BID 01/01/23 01/15/25 History enoxaparin 30 mg/0.3 mL 30 mg subcut DAILY 01/15/25 01/15/25 History subcutaneous syringe levetiracetam 1,000 mg tablet 1,000 mg PO BID 01/15/25 01/15/25 History lidocaine 5 % topical patch 1 patch topical DAILY 01/15/25 01/15/25 History (DermacinRx Lidocan) Allergies Allergy/AdvReac Type Severity Reaction Status Date / Time peanut Allergy Intermediate Swelling Verified 01/08/25 05:18 banana Allergy Unknown Itching Verified 01/08/25 05:18 latex Allergy Unknown Itching Verified 01/08/25 05:18 Penicillins Allergy Unknown Swelling Verified 01/11/25 08:31 Sulfa (Sulfonamide Allergy Unknown Swelling Verified 01/08/25 05:18 Antibiotics) celecoxib (From Celebrex) Allergy Swelling Verified 01/08/25 05:18 infliximab (From Remicade) Allergy Unknown Verified 01/08/25 05:18 meloxicam (From Mobic) Allergy Itching Verified 01/08/25 05:18 metoclopramide Allergy Unknown Verified 01/08/25 05:18 lisinopril AdvReac Swelling Verified 01/08/25 05:18 Vital Signs Vital Signs - 24 hr 01/15/25 14:00 01/15/25 16:00 01/15/25 20:00 Temperature 36.4 C Pulse Rate 67 60 60 Respiratory Rate 16 16 Blood Pressure 143/77 H Pulse Oximetry 100 100 Oxygen Delivery Room Air 01/15/25 20:00 01/15/25 20:44 01/15/25 21:25 Temperature 36.6 C Pulse Rate 71 63 57 L Respiratory Rate 16 Blood Pressure 112/59 L Pulse Oximetry 100 Oxygen Delivery 01/16/25 00:00 01/16/25 04:00 01/16/25 06:00 Temperature 35.7 C L Pulse Rate 62 59 L 57 L Respiratory Rate 16 Blood Pressure 111/60 Pulse Oximetry 100 Oxygen Delivery 01/16/25 08:46 01/16/25 08:47 Temperature Pulse Rate 69 Respiratory Rate Blood Pressure Pulse Oximetry Oxygen Delivery Room Air Exam Const: General: comfortable HENMT: Mouth: Yes moist mucous membranes Eyes: EOM: EOMs intact bilaterally Neck: Neck: no JVD Resp: Effort & Inspection: normal respiratory effort Auscultation: clear to auscultation bilaterally Cardio: Rate: regular rate Rhythm: regular rhythm Extrem: General: no pedal edema Results Labs and Meds 01/16/25 05:00 01/16/25 05:00 Lab results: Cardiac Enzymes 01/16/25 Range/Units 05:00 AST 42 (17-59) U/L CBC 01/16/25 Range/Units 05:00 WBC 6.0 (4.5-10.0) K/mm3 RBC 3.91 L (4.6-6.20) M/mm3 Hgb 11.2 L (14.0-18.0) g/dL Hct 34.8 L (42.0-52.0) % Plt Count 257 (150-375) k/mm3 Lymph # (Auto) 2.24 (0.9-3.2) K/mm3 Lee # (Auto) 0.6 (0.1-0.6) K/mm3 Eos # (Auto) 0.3 (0-0.3) K/mm3 Baso # (Auto) 0.0 (0.0-0.1) K/mm3 Comprehensive Metabolic Panel 01/16/25 Range/Units 05:00 Sodium 136 L (137-145) mmol/L Potassium 3.6 (3.4-5.0) mmol/L Chloride 102 (98-107) mmol/L Carbon Dioxide 29 (22-30) mmol/L BUN 11 (9-20) mg/dL Creatinine 0.99 (0.7-1.3) mg/dL Glucose 150 H (65-110) mg/dL Calcium 9.1 (8.4-10.2) mg/dL AST 42 (17-59) U/L ALT 30 (6-50) U/L Alkaline Phosphatase 70 (38-126) U/L Total Protein 6.4 (6.3-8.2) g/dL Albumin 3.1 L (3.5-5.1) g/dL Intake and Output 01/15/25 01/16/25 01/16/25 23:59 07:59 15:59 Intake Total 370 250 Output Total 900 700 Balance -530 -450 Intake: Oral 370 250 Output: Catheter Urine 500 700 External/Condom 500 700 Straight Cath Amount 400
[2025-01-16] MEDS: PREGABALIN (*CRX) 50 MG CAPSULE 200 MG PO (20:18)
[2025-01-16] MEDS: ATORVASTATIN 40 MG TABLET 80 MG PO (20:18)
[2025-01-17] VITALS (13 sets, daily range): BP systolic 105–118; BP diastolic 55–69; PULSE 56–115; RESP 16–20; TEMP 35.9–36.9; O2SAT 96–100
[2025-01-17] MEDS: BETHANECHOL CHLORIDE 10 MG TABLET PO ×3 (05:58→15:33)
[2025-01-17] MEDS: ASPIRIN 81 MG CHEWABLE TABLET PO (08:20)
[2025-01-17] MEDS: CLOPIDOGREL BISULFATE 75 MG TABLET PO (08:21)
[2025-01-17] MEDS: PREGABALIN (*CRX) 50 MG CAPSULE 100 MG PO (08:21)
[2025-01-17] MEDS: TAMSULOSIN HCL 0.4 MG CAPSULE PO ×2 (08:21→16:48)
[2025-01-17] MEDS: FINASTERIDE 5 MG TABLET PO (08:21)
[2025-01-17] MEDS: ENOXAPARIN 40 MG/0.4 ML SYRINGE SUB-Q (08:22)
[2025-01-17] MEDS: PANTOPRAZOLE 40 MG TABLET PO (08:22)
[2025-01-17] MEDS: LIPASE/AMYLASE/PROTEASE 12,000 UNITS CAP 3 CAP PO ×3 (08:27→16:48)
--- NOTE | 2025-01-17 11:44 | P.PNIM_ITS ---
Progress Note: A&P Assessment and Plan (1) Generalized weakness: Code(s): R53.1 - Weakness Status: Acute (2) Acute UTI: Code(s): N39.0 - Urinary tract infection, site not specified Status: Acute (3) Atrial fibrillation: Code(s): I48.91 - Unspecified atrial fibrillation Status: Acute (4) BPH (benign prostatic hyperplasia): Code(s): N40.0 - Benign prostatic hyperplasia without lower urinary tract symptoms Status: Acute (5) Diabetes mellitus: Code(s): E11.9 - Type 2 diabetes mellitus without complications Status: Acute (6) Hyperlipidemia: Code(s): E78.5 - Hyperlipidemia, unspecified Status: Acute (7) Hypertension: Code(s): I10 - Essential (primary) hypertension Status: Acute (8) Pancreatic insufficiency: Code(s): K86.89 - Other specified diseases of pancreas Status: Acute (9) Seizure after head injury: Code(s): R56.1 - Post traumatic seizures Status: Acute (10) Nondisplaced zone I fracture of sacrum: Code(s): S32.110A - Nondisplaced Zone I fracture of sacrum, initial encounter for closed fracture Status: Acute Plan Patient has had consistent bradycardia. Sotalol has been administered on and off due to the bradycardia. Decrease sotalol from 120 mg p.o. b.i.d. to 80 mg p.o. b.i.d. starting tonight of 01/13/2025. Check EKG to document QTC interval on 01/14/2025 in the evening. Start telemetry to monitor rhythm. ----- 1.Generalized weakness Likely secondary to UTI/physical taken she Chest x-ray negative for pneumonia Continue physical therapy and occupational therapy continue Cefuroxime 500 mg BID until 01/12 2. UTI UA reveals positive nitrite and leukocytes completed antibiotics Urine culture grew use 50,000-100,000 colony-forming unit mixed urogenital arun is clinically insignificant. 3. Type 2 diabetes mellitus A1c 6.5% Discontinue sitagliptin due to his lack of appetite POCT, sliding scale, hypoglycemia protocol 4. Pancreatic insufficiency Continue pancreatic enzyme 5. Suspected seizure He had multiple falls while ago, suspected secondary to seizure episode, was placed on Keppra. Attempted to remove Keppra and he started having multiple fall episode-decided to continue Keppra indefinitely Continue Keppra 1 g p.o. b.i.d. 6. Permanent atrial fibrillation Status post Watchman placement 2018 Sotalol On hold due to Bradycardia and soft blood pressure cardiology consulted for input 7. 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 BPH Continue tonsils 9. Neuropathic pain Continue pregabalin 100 mg q.a.m. and 100 mg q.h.s. 10. hypotension Had episode of hypotension. Resolved status post 500 cc bolus. Amlodipine has been continued. 11. None displaced fracture extending across the S4 segment and minimal displaced fracture at the L6 segment Lidocaine patch, [place]ons 5 mg q.6 p.r.n. Physical and occupational therapy 12. Disposition Continue PT OT eval and training Okay for discharge to [facility] per care coordination. Holding off on discharge for monitoring sotalol decrease. Hiccups Still having repetitive bursts of hiccups CT AP no acute changes Stopped Gabapentin, now on Chlorpromazine, increased to 50mg tid PRN Hydrochloroquine on hold, EKG ordered CXR no acute changes monitor Patient would like to be full code. Saline lock IV. Fall precautions. Ambulate with assistance. 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 DVT prophylaxis on Sq Lovenox Possible discharge tomorrow Subjective Date/time seen: 01/17/25 11:44 Interval history: Comfortable at bedside Noted hiccup has improved awaiting dishcarge tomorrow Review of Systems Review of Systems: All systems reviewed & are unremarkable except as noted in HPI and below Exam Narrative: APPEARANCE: No acute distress, nontoxic, comfortable EYES: EOMI HEENT: Dry mucous membrane, Normocephalic RESPIRATORY: No respiratory distress Clear to auscultation bilaterally with no rhonchi wheezing or rales. CARDIOVASCULAR: RRR, S1 and S2 without murmurs rubs or gallops. ABDOMINAL: Soft, nontender, nondistended, no rebound or guarding MSK: Dry skin, moves his extremities spontaneously, 4/5 left-sided motor weakness-from CVA NEURO: Awake and alert. Following commands, speech normal, no focal deficits SKIN:: Warm, dry. No rashes lesions or abrasions PSYCHIATRIC: Bright affect Const: General: comfortable and no acute distress Eyes: Pupils: Equal, round and reactive pupils present Neck: Neck: supple Resp: Effort & Inspection: normal respiratory effort Auscultation: clear to auscultation bilaterally Cardio: Rate: bradycardic Rhythm: regular rhythm GI: Inspection: non-distended Neuro: Cranial nerves: Yes Equal, round and reactive pupils present Other: 4/5 motor strength left extremities Extrem: General: no edema Objective Data Vital Signs Vital Signs: Vital Signs - 24 hr 01/16/25 12:00 01/16/25 14:00 01/16/25 16:00 Temperature 98.2 F Pulse Rate 58 L 63 56 L Respiratory Rate 18 Blood Pressure 120/69 Pulse Oximetry 100 Oxygen Delivery 01/16/25 20:04 01/16/25 20:18 01/16/25 20:32 Temperature Pulse Rate 60 60 Respiratory Rate Blood Pressure Pulse Oximetry 100 Oxygen Delivery Room Air 01/16/25 21:14 01/16/25 22:29 01/17/25 00:00 Temperature 97.1 F L Pulse Rate 57 L 65 Respiratory Rate 16 Blood Pressure 118/59 L Pulse Oximetry 100 100 Oxygen Delivery Room Air 01/17/25 04:04 01/17/25 06:00 01/17/25 08:00 Temperature 96.6 F L Pulse Rate 64 64 61 Respiratory Rate 20 Blood Pressure 118/69 Pulse Oximetry 100 Oxygen Delivery 01/17/25 08:17 01/17/25 08:21 Temperature Pulse Rate 56 L Respiratory Rate Blood Pressure 112/55 L Pulse Oximetry Oxygen Delivery Intake/Output Intake/Output: Intake & Output 01/14/25 01/15/25 01/16/25 01/17/25 23:59 23:59 23:59 23:59 Intake Total 1920 740 970 540 Output Total 750 2000 1600 800 Balance 1170 -1260 -630 -260 Meds/Results Medications: Active Medications Generic Name Dose Route Start Last Admin Trade Name Freq PRN Reason Stop Dose Admin Hydrocodone Bitart/Acetaminophen 1 tab 01/09/25 08:46 01/16/25 08:45 Hydrocodone/Acetaminophen (*Crx) 10-325 Mg Tablet PO 1 tab Q6H PRN Administration Pain (Scale Score 7-10) Amlodipine Besylate 5 mg 01/09/25 09:00 01/17/25 08:21 Amlodipine Besylate 5 Mg Tablet PO 5 mg DAILY SERENA Administration Lipase/Protease/Amylase 3 cap 01/08/25 13:00 01/17/25 08:27 Lipase/Amylase/Protease 12,000 Units Cap PO 3 cap TID SERENA Administration Aspirin 81 mg 01/09/25 09:00 01/17/25 08:20 Aspirin 81 Mg Chewable Tablet PO 81 mg Q48H SERENA Administration Atorvastatin Calcium 80 mg 01/08/25 21:00 01/16/25 20:18 Atorvastatin 40 Mg Tablet PO 80 mg HS SERENA Administration Bethanechol Chloride 10 mg 01/08/25 16:30 01/17/25 05:58 Bethanechol Chloride 10 Mg Tablet PO 10 mg TIDAC SERENA Administration Chlorpromazine HCl 50 mg 01/16/25 11:42 01/16/25 18:06 Chlorpromazine Hcl 25 Mg Tablet PO 50 mg TID PRN Administration Hiccups Clopidogrel Bisulfate 75 mg 01/09/25 09:00 01/17/25 08:21 Clopidogrel Bisulfate 75 Mg Tablet PO 75 mg DAILY SERENA Administration Enoxaparin Sodium 40 mg 01/12/25 09:00 01/17/25 08:22 Enoxaparin 40 Mg/0.4 Ml Syringe SUB-Q 40 mg DAILY SERENA Administration Finasteride 5 mg 01/09/25 09:00 01/17/25 08:21 Finasteride 5 Mg Tablet PO 5 mg DAILY SERENA Administration Hydroxychloroquine Sulfate 200 mg 01/08/25 17:00 01/15/25 16:49 Hydroxychloroquine Sulfate 200 Mg Tablet PO Not Given On Hold: 01/15/25 16:41 BID SERENA Levetiracetam 1,000 mg 01/08/25 21:00 01/17/25 08:22 Levetiracetam 500 Mg Tablet PO 1,000 mg Q12HR SERENA Administration Lidocaine 1 patch 01/09/25 09:00 01/17/25 08:20 Lidocaine 5% Patch TRANSDERM Not Given DAILY SERENA Pantoprazole Sodium 40 mg 01/09/25 09:00 01/17/25 08:22 Pantoprazole 40 Mg Tablet PO 40 mg QAM SERENA Administration Pregabalin 100 mg 01/09/25 09:00 01/17/25 08:21 Pregabalin (*Crx) 50 Mg Capsule PO 100 mg QAM SERENA Administration Pregabalin 200 mg 01/08/25 21:00 01/16/25 20:18 Pregabalin (*Crx) 50 Mg Capsule PO 200 mg HS SERENA Administration Sotalol HCl 40 mg 01/14/25 09:30 01/17/25 08:21 Sotalol Hcl 40 Mg Tablet PO 40 mg Q12HR SERENA Administration Tamsulosin HCl 0.4 mg 01/08/25 17:00 01/17/25 08:21 Tamsulosin Hcl 0.4 Mg Capsule PO 0.4 mg BID SERENA Administration Radiology Results: ITS Impressions Shoulder X-Ray 01/12/25 07:51 IMPRESSION: Mild right glenohumeral and moderate acromioclavicular osteoarthritis. No acute osseous abnormality. Abdomen/Pelvis CT 01/15/25 12:06 IMPRESSION: No evidence of acute pathology in the abdomen and pelvis. Chest X-Ray 01/16/25 12:48 IMPRESSION: 1. No acute cardiopulmonary disease. Quality VTE Prophylaxis VTE prophylaxis: mechanical ordered and pharmacologic ordered ( Lovenox)
[2025-01-17] MEDS: HYDROcodone/acetaminophen (*CRX) 10-325 MG TABLET 1 TAB PO (15:33)
[2025-01-17] MEDS: ATORVASTATIN 40 MG TABLET 80 MG PO (21:51)
[2025-01-17] MEDS: PREGABALIN (*CRX) 50 MG CAPSULE 200 MG PO (21:51)
[2025-01-18] VITALS (11 sets, daily range): BP systolic 100–131; BP diastolic 50–71; PULSE 55–76; RESP 16–18; TEMP 35.9–37.6; O2SAT 94–100
[2025-01-18] MEDS: BETHANECHOL CHLORIDE 10 MG TABLET PO ×3 (05:39→18:04)
--- NOTE | 2025-01-18 06:14 | PC.NURSE ---
Patient on court recording monitor reading showed bradycardia high 40s low 50's, asymptomatic. AM vital signs 100/50, P 76, R 16, T 98.0 F, 94% oxygenation. Order given to hold all blood pressure medications ( Sotaolol and Amlodipine). Get labs drawn for BMP and magnesium level checked. Call light within reach, bed in lowest position, fall precaution alarm set.Will continue to monitor patient progress.
[2025-01-18 06:58] LABS: Anion Gap 8 mmol/L (4-12); Blood Urea Nitrogen 12 mg/dL (9-20); Calcium 9.2 mg/dL (8.4-10.2); Carbon Dioxide 26 mmol/L (22-30); Chloride 102 mmol/L (98-107); Estimated CRCL calculation 63 ml/min; Estimated Glomerular Filt Rate > 60; Glucose 168 mg/dL (65-110); Magnesium 1.7 mg/dL (1.6-2.3); Potassium 4.0 mmol/L (3.4-5.0); Sodium 136 mmol/L (137-145)
[2025-01-18] MEDS: PANTOPRAZOLE 40 MG TABLET PO (09:14)
[2025-01-18] MEDS: PREGABALIN (*CRX) 50 MG CAPSULE 100 MG PO (09:14)
[2025-01-18] MEDS: LIPASE/AMYLASE/PROTEASE 12,000 UNITS CAP 3 CAP PO ×3 (09:14→18:03)
[2025-01-18] MEDS: LIDOCAINE 5% PATCH 1 PATCH TRANSDERM (09:15)
[2025-01-18] MEDS: TAMSULOSIN HCL 0.4 MG CAPSULE PO ×2 (09:15→18:03)
[2025-01-18] MEDS: ENOXAPARIN 40 MG/0.4 ML SYRINGE SUB-Q (09:15)
[2025-01-18] MEDS: FINASTERIDE 5 MG TABLET PO (09:15)
[2025-01-18] MEDS: CLOPIDOGREL BISULFATE 75 MG TABLET PO (09:15)
--- NOTE | 2025-01-18 12:22 | PM.PNCARD ---
Progress Note: A&P Assessment and Plan (1) Atrial fibrillation: Code(s): I48.91 - Unspecified atrial fibrillation Status: Acute (2) Hyperlipidemia: Code(s): E78.5 - Hyperlipidemia, unspecified Status: Acute Plan 74 yo man with pAF sp Watchman (on sotalol 120mg PO BID), right CVA, HTN, and pancreatic insufficiency pw fall Sinus bradycardia -Continue sotalol to 40 mg p.o. b.i.d. 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 b.i.d. -continue aspirin Hyperlipidemia -continue atorvastatin 80 mg every evening Hypotension -Discontinue amlodipine No further inpatient cardiac workup warranted at this time. Please call with additional questions. Subjective Date/time seen: 01/18/25 12:22 Interval history: Cardiology follow up visit Review of Systems Review of Systems: All systems reviewed & are unremarkable except as noted in HPI and below Cardiovascular: Cardiovascular: Reports as per HPI Respiratory: Respiratory: Reports as per HPI Exam Const: General: comfortable HENMT: Mouth: Yes moist mucous membranes Eyes: EOM: EOMs intact bilaterally Neck: Neck: no JVD Resp: Effort & Inspection: normal respiratory effort Auscultation: clear to auscultation bilaterally Cardio: Rate: regular rate Rhythm: regular rhythm Extrem: General: no pedal edema Objective Data Vital Signs Vital Signs: Vital Signs - 24 hr 01/17/25 14:00 01/17/25 16:00 01/17/25 20:04 Temperature 36.4 C Pulse Rate 61 62 58 L Respiratory Rate 18 Blood Pressure 113/61 Pulse Oximetry 100 Oxygen Delivery 01/17/25 21:08 01/17/25 21:56 01/17/25 22:06 Temperature 36.9 C Pulse Rate 115 H 59 L Respiratory Rate 16 Blood Pressure 105/60 Pulse Oximetry 96 96 Oxygen Delivery Room Air 01/18/25 00:02 01/18/25 04:12 01/18/25 05:51 Temperature 36.6 C Pulse Rate 59 L 66 76 Respiratory Rate 16 Blood Pressure 100/50 L Pulse Oximetry 94 Oxygen Delivery Intake/Output Intake/Output: Intake & Output 01/15/25 01/16/25 01/17/25 01/18/25 23:59 23:59 23:59 23:59 Intake Total 848 802 8480 358 Output Total 1999 8905 800 350 Balance -0340 -182 220 8 Meds/Results Medications: Active Medications Generic Name Dose Route Start Last Admin Trade Name Freq PRN Reason Stop Dose Admin Hydrocodone Bitart/Acetaminophen 1 tab 01/09/25 08:46 01/17/25 15:33 Hydrocodone/Acetaminophen (*Crx) 10-325 Mg Tablet PO 1 tab Q6H PRN Administration Pain (Scale Score 7-10) Lipase/Protease/Amylase 3 cap 01/08/25 13:00 01/18/25 09:14 Lipase/Amylase/Protease 12,000 Units Cap PO 3 cap TID SERENA Administration Aspirin 81 mg 01/09/25 09:00 01/17/25 08:20 Aspirin 81 Mg Chewable Tablet PO 81 mg Q48H SERENA Administration Atorvastatin Calcium 80 mg 01/08/25 21:00 01/17/25 21:51 Atorvastatin 40 Mg Tablet PO 80 mg HS SERENA Administration Bethanechol Chloride 10 mg 01/08/25 16:30 01/18/25 11:40 Bethanechol Chloride 10 Mg Tablet PO 10 mg TIDAC SERENA Administration Chlorpromazine HCl 50 mg 01/16/25 11:42 01/18/25 09:22 Chlorpromazine Hcl 25 Mg Tablet PO 50 mg TID PRN Administration Hiccups Clopidogrel Bisulfate 75 mg 01/09/25 09:00 01/18/25 09:15 Clopidogrel Bisulfate 75 Mg Tablet PO 75 mg DAILY SERENA Administration Enoxaparin Sodium 40 mg 01/12/25 09:00 01/18/25 09:15 Enoxaparin 40 Mg/0.4 Ml Syringe SUB-Q 40 mg DAILY SERENA Administration Finasteride 5 mg 01/09/25 09:00 01/18/25 09:15 Finasteride 5 Mg Tablet PO 5 mg DAILY SERENA Administration Hydroxychloroquine Sulfate 200 mg 01/08/25 17:00 01/15/25 16:49 Hydroxychloroquine Sulfate 200 Mg Tablet PO Not Given On Hold: 01/15/25 16:41 BID SERENA Levetiracetam 1,000 mg 01/08/25 21:00 01/18/25 09:14 Levetiracetam 500 Mg Tablet PO 1,000 mg Q12HR SERENA Administration Lidocaine 1 patch 01/09/25 09:00 01/18/25 09:15 Lidocaine 5% Patch TRANSDERM 1 patch DAILY SERENA Administration Miscellaneous Information 1 each 01/18/25 00:01 Please Renew Pregabalin_. Per [employer] Procedure, It Will Discontinue If Not Renewed XX 02/17/25 00:00 CLARIFY SERENA Miscellaneous Information 1 each 01/18/25 00:01 Please Renew Hydrocodone/Apap. Per [employer] Procedure, It Will Discontinue If Not Renewed XX 02/17/25 00:00 CLARIFY SERENA Pantoprazole Sodium 40 mg 01/09/25 09:00 01/18/25 09:14 Pantoprazole 40 Mg Tablet PO 40 mg QAM SERENA Administration Pregabalin 100 mg 01/09/25 09:00 01/18/25 09:14 Pregabalin (*Crx) 50 Mg Capsule PO 100 mg QAM SERENA Administration Pregabalin 200 mg 01/08/25 21:00 01/17/25 21:51 Pregabalin (*Crx) 50 Mg Capsule PO 200 mg HS SERENA Administration Sotalol HCl 40 mg 01/14/25 09:30 01/18/25 11:41 Sotalol Hcl 40 Mg Tablet PO 40 mg Q12HR SERENA Administration Tamsulosin HCl 0.4 mg 01/08/25 17:00 01/18/25 09:15 Tamsulosin Hcl 0.4 Mg Capsule PO 0.4 mg BID SERENA Administration Radiology Results: ITS Impressions Shoulder X-Ray 01/12/25 07:51 IMPRESSION: Mild right glenohumeral and moderate acromioclavicular osteoarthritis. No acute osseous abnormality. Abdomen/Pelvis CT 01/15/25 12:06 IMPRESSION: No evidence of acute pathology in the abdomen and pelvis. Chest X-Ray 01/16/25 12:48 IMPRESSION: 1. No acute cardiopulmonary disease. Labs Labs: Laboratory Results - last 24 hr 01/18/25 01/18/25 06:31 06:31 Sodium 136 L Potassium 4.0 Chloride 102 Carbon Dioxide 26 Anion Gap 8 BUN 12 Creatinine 0.85 Estim Creat Clear Calc 63 Estimated GFR > 60 Glucose 168 H Calcium 9.2 Magnesium 1.7 Cancelled
--- NOTE | 2025-01-18 17:38 | P.DS_ITS ---
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 Hospital Course: * Generalized Weakness & Fall: Presented with generalized weakness and recent fall resulting in a nondisplaced sacral fracture (Zone I, S32.110A) and minimal displaced fracture at L6. Weakness likely multifactorial, attributed to acute UTI and deconditioning. No evidence of pneumonia on CXR. Physical and occupational therapy initiated and continued throughout hospitalization. * Acute UTI: Initial urinalysis positive for nitrites and leukocytes; urine culture grew mixed urogenital arun (50,000?100,000 CFU), considered clinically insignificant. Treated with ceftriaxone, then cefuroxime, with clinical resolution of infection. * Atrial Fibrillation & Bradycardia: History of paroxysmal atrial fibrillation, s/p Watchman device. On admission, patient was on sotalol 120 mg BID. Developed sinus bradycardia and hypotension during hospitalization. Sotalol dose was sequentially reduced to 80 mg BID, then to 40 mg BID per cardiology recommendations. Telemetry monitoring was performed; no further arrhythmias or syncope. Amlodipine was discontinued due to hypotension. Cardiology recommended outpatient follow-up in 1?2 weeks. * Seizure Disorder: History of post-traumatic seizures with prior falls. Keppra 1 g BID continued after a failed attempt at discontinuation led to recurrent falls. * Type 2 Diabetes Mellitus: A1c 6.5%. Sitagliptin discontinued due to poor appetite. Glucose managed with POCT, sliding scale insulin, and hypoglycemia protocol. * Pancreatic Insufficiency: Pancreatic enzyme supplementation continued. * Right CVA (2019): Residual left-sided weakness. Antiplatelet therapy (aspirin and clopidogrel) continued. * BPH: Chronic management continued. * Neuropathic Pain: Pregabalin 100 mg qAM and qHS continued. * Pain Management (Sacral/Lumbar Fractures): Managed with lidocaine patch and [place] 5 mg q6h PRN. No surgical intervention required. * Hypotension: Managed with IV fluids and discontinuation of antihypertensives as appropriate. Resolved with supportive care. * Hiccups: Persistent hiccups managed by discontinuing gabapentin and initiating chlorpromazine, titrated to 50 mg TID PRN. Hydroxychloroquine held. No acute findings on CT abdomen/pelvis or CXR. * Disposition: Discharge planning included continued PT/OT evaluation and training. Patient is to be discharged to acute rehabilitation ([facility]) once stable on reduced sotalol dose and after monitoring for further bradycardia or hypotension. * Code Status: Full code. * Other: DVT prophylaxis with SQ Lovenox. Fall precautions and ambulation with assistance throughout stay. Discharge Medications: (Chlorpromazine 50mg tid pRN ; include sotalol 40 mg BID, Keppra 1 g BID, aspirin, clopidogrel, atorvastatin, pregabalin, pancreatic enzymes, and others as per final reconciliation.) Follow-Up Recommendations: * Outpatient cardiology follow-up in 1?2 weeks for rhythm and rate control assessment. * Primary care and neurology follow-up as indicated. * Continue PT/OT in [facility] setting. * Monitor for recurrent falls, bradycardia, and hypotension. Summary: Mr. Hunter was admitted for generalized weakness and UTI, complicated by a fall with sacral fracture and bradycardia secondary to sotalol. He was stabilized with appropriate antimicrobial therapy, medication adjustments, and supportive care. He is now medically stable for transfer to acute rehabilitation for continued recovery and therapy. Time Spent with Patient Time attestation: Total time spent providing and/or coordinating discharge services: DS: Data Data Completed and Pending Labs on day of discharge: Labs from last 24 hours 01/18/25 01/18/25 06:31 06:31 Sodium 136 L Potassium 4.0 Chloride 102 Carbon Dioxide 26 Anion Gap 8 BUN 12 Creatinine 0.85 Estim Creat Clear Calc 63 Estimated GFR > 60 Glucose 168 H Calcium 9.2 Magnesium Cancelled 1.7 Discharge Plan Discharge Attending physician on discharge: Mahamed Pond Consulting providers: Mahamed Pond; Gloria Berger Discharging Clinician: Mahamed Pond Anticipated Discharge Date/Time: 01/18/25 16:45 Patient Disposition: [facility] Activity: as tolerated Diet: as tolerated and diabetic Patient Language: Brazilian Follow-up/Referrals: Gloria Berger APN-C [Advanced Practice Nurse, Cardiology] Referral Note: F/u with Cardiology as instructed Eliane Hsu MD [Primary Care Provider, Rheumatology] Referral Note: F/u with PCP in 3-5 days Discharge Medications: New chlorpromazine 25 mg Tablet 50 mg PO TID PRN (Reason: Hiccups) 30 Days Qty: 20 0RF Continued levetiracetam 1,000 mg tablet 1,000 mg PO BID lidocaine [DermacinRx Lidocan] 5 % adhesive patch,medicated 1 patch topical DAILY Rx Instructions: leave on most painful area for up to 12 hrs enoxaparin 30 mg/0.3 mL syringe 30 mg subcut DAILY atorvastatin 80 mg Tablet 80 mg PO HS bethanechol chloride 10 mg Tablet 10 mg PO TID levetiracetam 500 mg Tablet 1,000 mg PO BID clopidogrel [Plavix] 75 mg Tablet 75 mg PO DAILY hydrocodone-acetaminophen 10-325 mg Tablet 1 tablet PO Q6H PRN (Reason: Pain (Scale Score 7-10)) tamsulosin 0.4 mg Capsule 0.4 mg PO BID pantoprazole 40 mg Tablet,Delayed Release (Dr/Ec) 40 mg PO QAM aspirin [Aspirin Childrens] 81 mg Tablet,Chewable 81 mg PO Q48H hydroxychloroquine 200 mg Tablet 200 mg PO BID finasteride 5 mg Tablet 5 mg PO DAILY pregabalin 100 mg Capsule 100 mg PO QAM pregabalin 100 mg Capsule 200 mg PO HS Pancreaze 10,500-35,500- 61,500 unit Capsule,Delayed Release(Dr/Ec) 3 cap PO TID Rx Instructions: administer with meals and/or snacks- to start on 01/02/2023 Changed sotalol 80 mg Tablet 40 mg PO BID 30 Days Qty: 60 0RF Discontinued amlodipine 5 mg Tablet 5 mg PO DAILY Date of admission: 01/08/25 08:22 Primary Care Provider: Eliane Hsu Admitting Provider: Maribel Espinal Attending physician on admission: Maribel Espinal Condition: Stable
[2025-01-18] MEDS: ATORVASTATIN 40 MG TABLET 80 MG PO (21:25)
[2025-01-19 00:03] VITALS: PULSE 63
[2025-01-19 04:05] VITALS: PULSE 58
[2025-01-19 04:58] VITALS: BP 134/66; PULSE 56; RESP 16; TEMP 36.8; O2SAT 100
[2025-01-19] MEDS: BETHANECHOL CHLORIDE 10 MG TABLET PO ×2 (05:30→12:42)
[2025-01-19 08:00] VITALS: PULSE 53
--- NOTE | 2025-01-19 08:24 | ECG_ITS ---
Test Date: 2025-01-19 10:12:10 Measurements Intervals [place] Rate: 53 P: 85 MT: 161 QRS: 57 QRSD: 102 T: 54 QT: 441 QTc: 418 Interpretive Statements SINUS BRADYCARDIA OTHERWISE NORMAL ECG Compared to ECG 01/16/2025 12:28:41 No significant changes Electronically Signed On 01-20-2025 15:41:30 CDT by Gabriel Milton M.D.
[2025-01-19] MEDS: ENOXAPARIN 40 MG/0.4 ML SYRINGE SUB-Q (09:16)
[2025-01-19 09:17] VITALS: PULSE 56
[2025-01-19] MEDS: LIPASE/AMYLASE/PROTEASE 12,000 UNITS CAP 3 CAP PO (09:17)
[2025-01-19] MEDS: ASPIRIN 81 MG CHEWABLE TABLET PO (09:18)
[2025-01-19] MEDS: TAMSULOSIN HCL 0.4 MG CAPSULE PO (09:18)
[2025-01-19] MEDS: PANTOPRAZOLE 40 MG TABLET PO (09:18)
[2025-01-19] MEDS: CLOPIDOGREL BISULFATE 75 MG TABLET PO (09:18)
[2025-01-19] MEDS: FINASTERIDE 5 MG TABLET PO (09:19)
[2025-01-19] MEDS: LIDOCAINE 5% PATCH 1 PATCH TRANSDERM (09:19)
[2025-01-19] MEDS: PREGABALIN (*CRX) 50 MG CAPSULE 100 MG PO (09:29)
--- NOTE | 2025-01-19 09:30 | PCOTNOTE ---
Patient declined at this time. Patient states he is waiting for his family, come back later.
--- NOTE | 2025-01-19 10:31 | P.DS_ITS ---
DS: Admitting Diagnosis Discharge Date 01/19/2025 Admitting Diagnosis Weakness DS: Discharge Diagnosis Discharge Diagnosis (1) Atrial fibrillation: Code(s): I48.91 - Unspecified atrial fibrillation Status: Acute (2) Bradycardia: Code(s): R00.1 - Bradycardia, unspecified Status: Acute (3) Weakness: Code(s): R53.1 - Weakness Status: Acute DS: Summary Hospital Course Hospital Course: 74-year-old male with history of hypertension, type 2 diabetes mellitus, hyperlipidemia, atrial fibrillation status post Watchman in 2018, right CVA 2018, residual left-sided weakness, BPH, pancreatic insufficiency, posttraumatic seizures, recent sacral fracture, admitted for generalized weakness and acute UTI. Treated with a course of antibiotics ceftriaxone, then ceftriaxone, clinical resolution of infection. Atrial fibrillation, discharged it with sinus bradycardia. Seen by Cardiology. QTC improved. Sotalol dose reduced due to bradycardia from 120 mg p.o. b.i.d. to 40 mg p.o. b.i.d.. He is discharged in stable condition to rehab on 01/19/2025. Patient was full code during the admission. All his questions and concerns were answered to satisfaction. He is to follow-up with his PCP within a week and Cardiology within 2 weeks. Time Spent with Patient Time attestation: Total time spent providing and/or coordinating discharge services: Time spent: Greater than 30 minutes Exam Const: General: comfortable and no acute distress Eyes: Pupils: Equal, round and reactive pupils present Neck: Neck: supple Resp: Effort & Inspection: normal respiratory effort Auscultation: clear to auscultation bilaterally Cardio: Rate: bradycardic Rhythm: regular rhythm GI: Inspection: non-distended GI Palp: Yes Soft to palpation Extrem: General: no edema Discharge Plan Discharge Attending physician on discharge: Marina Zuniga Consulting providers: Dang Pond Christy A. Discharging Clinician: Marina Zuniga Anticipated Discharge Date/Time: 01/18/25 16:45 Patient Disposition: [facility]3] Activity: as tolerated Diet: as tolerated and diabetic Patient Language: Ghanaian Follow-up/Referrals: Gloria Berger, [employer] M[employer] WORKER-C [Advanced Practice Nurse, Cardiology] Referral Note: F/u with Cardiology as instructed Eliane Hsu MD [Primary Care Provider, Rheumatology] Referral Note: F/u with PCP in 3-5 days Discharge Medications: New chlorpromazine 25 mg Tablet 50 mg PO TID PRN (Reason: Hiccups) 30 Days Qty: 20 0RF Continued hydrocodone-acetaminophen 10-325 mg Tablet 1 tablet PO Q6H PRN (Reason: Pain (Scale Score 7-10)) Qty: 3 0RF pregabalin 100 mg Capsule 100 mg PO QAM Qty: 3 0RF pregabalin 100 mg Capsule 200 mg PO HS Qty: 6 0RF levetiracetam 1,000 mg tablet 1,000 mg PO BID lidocaine [DermacinRx Lidocan] 5 % adhesive patch,medicated 1 patch topical DAILY Rx Instructions: leave on most painful area for up to 12 hrs enoxaparin 30 mg/0.3 mL syringe 30 mg subcut DAILY atorvastatin 80 mg Tablet 80 mg PO HS bethanechol chloride 10 mg Tablet 10 mg PO TID clopidogrel [Plavix] 75 mg Tablet 75 mg PO DAILY tamsulosin 0.4 mg Capsule 0.4 mg PO BID pantoprazole 40 mg Tablet,Delayed Release (Dr/Ec) 40 mg PO QAM aspirin [Aspirin Childrens] 81 mg Tablet,Chewable 81 mg PO Q48H hydroxychloroquine 200 mg Tablet 200 mg PO BID finasteride 5 mg Tablet 5 mg PO DAILY Pancreaze 10,500-35,500- 61,500 unit Capsule,Delayed Release(Dr/Ec) 3 cap PO TID Rx Instructions: administer with meals and/or snacks- to start on 01/02/2023 Changed sotalol 80 mg Tablet 40 mg PO BID 30 Days Qty: 60 0RF Discontinued levetiracetam 500 mg Tablet 1,000 mg PO BID amlodipine 5 mg Tablet 5 mg PO DAILY Date of admission: 01/08/25 08:22 Primary Care Provider: Eliane Hsu Admitting Provider: Maribel Espinal Attending physician on admission: Maribel Espinal Condition: Stable Hospitalist MIPS Heart Failure (Exclusion) Patient has history of Heart Transplant or Left Ventricular Assistive Device?: No IF YES, STOP HERE Heart Failure (Qualifier) Patient has current or prior documentation of LVEF less than or equal to 40%, or mod/servere depressed LVSF?: No IF NO, STOP HERE
== END 2025-01-19 12:28 | DRG 690 ==
LOC: ANHED 08:21 → ANH3MEDSUR 09:11
PROVIDERS: Internal Medicine; Admitting Provider Student in an Organized Health Care Education/Training Program; Emergency Provider Emergency Medicine; PCP Internal Medicine; Visit Provider General Practice
DX: N39.0 Urinary tract infection, site not specified (principal); I48.21 Permanent atrial fibrillation; R56.1 Post traumatic seizures; I69.354 Hemiplegia and hemiparesis following cerebral infarction affecting left non-dominant side; I10 Essential (primary) hypertension; I95.9 Hypotension, unspecified; E78.5 Hyperlipidemia, unspecified; E11.9 Type 2 diabetes mellitus without complications; N40.0 Benign prostatic hyperplasia without lower urinary tract symptoms; K86.89 Other specified diseases of pancreas; R29.6 Repeated falls; R00.1 Bradycardia, unspecified; R06.6 Hiccough; M79.2 Neuralgia and neuritis, unspecified; Z20.822 Contact with and (suspected) exposure to COVID-19; W19.XXXD Unspecified fall, subsequent encounter; S32.110D Nondisplaced Zone I fracture of sacrum, subsequent encounter for fracture with routine healing; S32.009D Unspecified fracture of unspecified lumbar vertebra, subsequent encounter for fracture with routine healing; Z79.01 Long term (current) use of anticoagulants; Z79.82 Long term (current) use of aspirin; Z79.02 Long term (current) use of antithrombotics/antiplatelets; Z79.4 Long term (current) use of insulin
CPT/HCPCS: 36415; 71045; 73030; 74177; 80048; 80053; 81001; 82550; 83036; 83605; 83735; 85025; 85027; 87040; 87086; 87637; 93005; 96361; 96365; 97110; 97116; 97162; 97165; 97530; 97535; 99285; A9270; J0696; J1650; J1885; J3411; J3475; J7030; J7040; J7120; Q9967

== ENCOUNTER 2025-01-30 11:59 | Observation (INO) | payer MEDICARE, BC, OTHER, SELFPAY ==
--- OUTSIDE RECORDS SUMMARY | 2020-04-22 15:09 | XMS_ITS | Encounter Summary ---
Author Organization [facility] Address [address] [place] [address] Care Team Providers Care Director And Professor Name Role Phone Maxim Martínez MD Primary Care Provider Maxim Martínez MD Unavailable Eboni Watkins APRN-CARRIER LOADER Unavailable [phone] Cheyanne Allan MD Unavailable [phone] Betzy Montana MD Unavailable Manisha Cao RN Unavailable Dora Peraza MD Unavailable [phone] Encounter Details Date Type Department Care Team (Late st Contact Info) Description 04/22/2020 2:09 PM METAL CNC OPERATOR Hospital Encounter [facility] [address] [place] [address] [id number] Laureen Roberts MD [facility] [address] [place] [phone] Nena Pé[place] [address] [facility] [place] [address] Select Direct Social History Tobacco Use Types Packs/Day Years Used Date Smoking Tobacco: Never Smokeless Tobacco: Never Alcohol Use Standard Drinks/Week Comments No 0 (1 standard drink = 0.6 oz pur e alcohol) AUDIT-C Answer Date Recorded Q1: How often do you have a drink containing alcohol? Never 02/26/2023 Q2: How many drinks containi ng alcohol do you have on a typical day when you are drinking? Patient does not drink Q3: How often do you have si x or more drinks on one occasion? Never 02/26/2023 Overall Financial Resource Strain (CARDIA) Answe r Date Recorded How hard is it for you to pa y for the very basics like food, housing, medical care, and heating? Not hard at all 02/26/2023 PHQ-2 Answer Date Recorded Patient Health Questionnaire-2 Score 0 02/04/2024 [facility] - Occupational Stress Questionnaire Answer Date Recorded Do you feel stress - tense, restless, nervous, or anxious, or unable to sleep at night because your mind is troubled all the time - these days? Patient declined 02/26/2023 Hunger Vital Sign Answer Date Recorded Within the past 12 months, y ou worried that your food would run out before you got the money to buy more. Never true 02/27/20 23 Within the past 12 months, t he food you bought just didn't last and you didn't have money to get more. Never true 02/26/2023 PRAPARE - Transportation Answer Date Re corded In the past 12 months, has l ack of transportation kept you from medical appointments or from getting medications? No 02/10 In the past 12 months, has l ack of transportation kept you from meetings, work, or from getting things needed for daily living? No 02/26/2023 Housing Stability Vital Sign Answer Victorino e Recorded In the last 12 months, was t here a time when you were not able to pay the mortgage or rent on time? No 02/26/2023 In the last 12 months, how many places have you lived? 1 02/26/2023 In the last 12 months, was t here a time when you did not have a steady place to sleep or slept in a senior care (including now)? No 02/26/2023 Sex and Gender Information Value Date Recorded Sex Assigned at Not on file Legal Sex Male 1:20 PM METAL CNC OPERATOR Gender Identity Not on file Sexual Orientation Not on file COVID-19 Exposure Response Date Recorded In the last 10 days, have tj avery been in contact with someone who was confirmed or suspected to have Coronavirus/COVID-19? No / Unsure 07/31/2022 1:53 PM CDT documented as of this encounter Functional Status * Question Answer Date of Assessment Author Q1: How often do you have a drink containing alcohol? Never 02/26/2023 11:50 AM CDT Emelia Obregon MSW Q2: How many drinks containing alcohol do you have on a typical day when you are drinking? Patient does not drink 02/26/2023 11:50 AM CDT Emelia Obregon MSW Q3: How often do you have six or more drinks on one occasion? Never 02/26/2023 11:50 AM CDT Emelia Obregon MSW * Audit-C Score Answer Date of Assessment Author 0 02/26/2023 11:50 AM CDT Emelia Obregon MSW * Is person deaf or have serious hearing difficulty? Answer Date of Assessment Author No 11/10/2019 6:30 AM CDT Augusta Barboza RN * Is person blind or have serious difficulty seeing? Answer Date of Assessment Author No 11/10/2019 6:30 AM CDT Augusta Barboza RN * Does person have serious difficulty walking/climbing stairs? Answer Date of Assessment Author Yes 11/10/2019 6:30 AM CDT Augusta Barboza, RN * Does person have difficulty dressing/bathing? Answer Date of Assessment Author Yes 11/10/2019 6:30 AM CDT Augusta Barboza, RN * Does person have difficulty doing errands alone? Answer Date of Assessment Author Yes 11/10/2019 6:30 AM CDT Augusta Barboza RN * Over the past 2 weeks, how often have you been bothered by any of the following problems? Question Answer Date of Assessment Author Little interest or pleasure in doing things Not at all 02/04/2024 2:12 PM CDT Ashlie Orr Feeling down, depressed, or hopeless Not at all 01/12 2:12 PM CDT Ashlie Orr Patient Health Questionnaire-2 Score 0 01/12 2:12 PM CDT Ashlie Orr documented as of this encounter Mental Status * Does person have difficulty concentrating/remembering/making decisions? Answer Entry Date Author No 11/10/2019 6:30 AM CDT Augusta Barboza RN documented in this encounter Plan of Treatment Not on file documented as of this encounter Goals Goal Patient Goal Type Associated Problems Recent Progress Patient-Stated? Author Patient Stated Goal: General Improving(10/2021 4:38 PM CDT) Yes Hazel Peng RN Note: Ride Bicycle Independently Progress toward goal attainment: 0% : Ongoing / No progress Barriers to goal attainment: Balance problems. Patient Stated Goal: General Improving(10/2021 4:38 PM CDT) Yes Hazel Peng RN Note: Independently use his home treadmill and cardio cruiser. Progress toward goal attainment: 0% : Ongoing / No progress Barriers to goal attainment: Strength and balance issues. Patient is riding his cardio cruiser. documented as of this encounter Visit Diagnoses Not on filedocumented in this encounter Additional Health Concerns Infection Onset Date Last Indicated Resolved Time COVID-19 Confirmed 04/13/2020 04/13/2020 0 4:34 AM METAL CNC OPERATOR C DIFF 04/22/2020 04/22/2020 09/23/2020 8:37 AM CDT COVID-19 Confirmed Comment:Added from external infection. 08/01/2020 12/23/2020 8:11 AM C DT COVID-19 Under Investigation 03/02/2022 03/02/2022 03/02/2022 3:05 PM CDT CDIFF Under Investigation 07/29/2022 07/29/2022 7:20 AM CDT documented as of this encounter Care Teams Director And Professor Relationship Specialty Start Date End Date Maxim Martínez MD PCP - General 02/11/20 10/16/20 Eboni Watkins APRN-CARRIER LOADER [address] [place] [address] PCP - Attributed-MSSP 11/11/19 11/09/20 Maxim Martínez MD Family Medicine 02/11/20 08/03/20 [place] [address] [facility] [address] [place] [address] Urology 03/20/16 01/17/21 Betzy Montana MD [address] [facility] [address] [place] [address] Rheumatology 11/24/19 Manisha Cao, NOHEMI Computer Security SpecialistSuperintendent Ammunition Storage 02/10/20 09/22/23 [place] [address] [place], [place] [id number] Orthopedic Surgery 03/14/20 documented as of this encounter
--- OUTSIDE RECORDS SUMMARY | 2020-04-22 15:09 | XMS_ITS | Encounter Summary ---
Author Organization [facility] Address [address] [facility] [place] [address] Care Team Providers Care Reproduction Production Manager Name Role Phone Maxim Martínez MD Primary Care Provider Maxim Martínez MD Unavailable Eboni Watkins APRN-POSTAL SORTING OFFICER Unavailable [phone] Cheyanne Allan MD Unavailable Betzy Montana MD Unavailable [phone] Manisha Cao RN Unavailable Dora Peraza MD Unavailable Encounter Details Date Type Department Care Team (Late st Contact Info) Description 04/22/2020 2:09 PM PRESTO LOG OPERATOR Hospital Encounter [facility] [address] [place] [address] [phone] Laureen Roberts MD [facility] [address] [place] [phone] Nena Pérez [place] [address] [facility] [place] [address] Select Direct Social History Tobacco [...] Recorded Patient Health Questionnaire-2 Score 0 02/04/2024 [facility] Occupat [facility] - Occupational Stress Questionnaire Answer Date [...] place to sleep or slept in a halfway (including now)? No 02/26/2023 Sex and Gender Information Value Date Recorded Sex Assigned at Not on file Legal Sex Male 1:20 PM PRESTO LOG OPERATOR Gender Identity Not on file Sexual [...] COVID-19 Confirmed 04/13/2020 04/13/2020 0 4:34 AM PRESTO LOG OPERATOR C DIFF 04/22/2020 04/22/2020 09/23/2020 8:37 AM CDT COVID-19 Confirmed Comment:Added from external infection. 08/01/2020 12/23/2020 8:11 AM C DT COVID-19 Under Investigation 03/02/2022 03/02/2022 03/02/2022 3:05 PM CDT CDIFF Under Investigation 07/29/2022 07/29/2022 7:20 AM CDT documented as of this encounter Care Teams Reproduction Production Manager Relationship Specialty Start Date End Date Maxim Martínez MD PCP - General 02/11/20 10/16/20 Eboni Watkins APRN-POSTAL SORTING OFFICER [address] [place] [address] PCP - Attributed-MSSP 11/11/19 11/09/20 Maxim Martínez MD Family Medicine 02/11/20 08/03/20 [place] [address] [facility] [address] [place] [address] Urology 03/20/16 01/17/21 Betzy Montana MD [address] [facility] [address] [place] [address] Rheumatology 11/24/19 Manisha Cao, NOHEMI Health Care Sanitary TechnicianPower Transformer Inspector 02/10/20 09/22/23 [place] [address] [place], [place] [id number] Orthopedic Surgery 03/14/20 documented as of this encounter
--- OUTSIDE RECORDS SUMMARY | 2023-10-25 10:15 | XMS_ITS ---
Author Organization [facility] Address [address] [place] [address] Care Team Providers Care Loss Mitigation Specialist Name Role Phone Miguel Clayton Unavailable [phone] Betzy Montana MD Unavailable Unavailable Allergies Allergen [...] Provider Diagnosis -[facility] [address] [facility] [address] [place] [address] 10/25/2023 Miguel Clayton Plan Of Treatment No Information Progress Notes * Jesse HUNTER EDOB:1950 (74 yo M)Acc No.[id number]:10/25/2023 Progress Note Patient: Jesse RED Provider: Abdiel Clayton MD :1950 A ge:73 Y S ex:Male Date:10/25/2023 Address:[address] [place] [address], [id number] Subjective: * Chief Complaints: * 1 . [...] Electronic signature of Miguel Clayton MD on 01/30/2025 at 03:27 PM CDT Sign off status: Pending * Provider: Abdiel Clayton MD Date: 0 10/25/2023 Generated for Chan recio/Camilo/Ariadna on: 01/30/2025 03:27 PM CDT
--- OUTSIDE RECORDS SUMMARY | 2024-02-05 05:20 | XMS_ITS ---
Author Organization [facility] Address [address] [place] [address] Care Team Providers Care Plumber And Tinner Name Role Phone Miguel Clayton Unavailable [phone] Betzy Montana MD Unavailable Unavailable Allergies Allergen (clinical drug ingredient) Drug/Non Drug Allergy documented on EMR Reaction Allergy Type Onset Date Status penicillin (uncoded) Unknown Allergy Active Substance with sulfonamide structure and antibacterial mechanism of action (substance) sulfa (uncoded) Unknown Allergy Active REASON FOR VISIT B knee/leg pain Medications Medication SIG (Take, Route, Frequency, Duration) Notes Start Date End Date Status Atorvastatin Calcium 80 MG 1 tablet Orally Once a day; Duration: 30 day(s) Active Brimonidine Tartrate 0.2 % 1 drop into affected eye Ophthalmic every 8 hrs Active Cyanocobalamin 100 MCG as directed Orally Active Horizon Lumbar Support as directed 01/07/2017 Active Finasteride 5 MG 1 tablet Orally Once a day; Duration: 30 day(s) Active Folic Acid 1 MG 1 tablet Orally Once a day; Duration: 30 day(s) Active HYDROcodone-Acetaminoph en 5-325 MG 1 tablet as needed Orally once a day; Duration: [address] Miguel Clayton KENDAL: [id number] 02/05/2024 Active EnteraGam 5 GM Orally Activ e Furosemide 40 MG 1 tablet Orally Once a day Active HYDROcodone-Acetaminoph en 7.5-325 MG 1 tablet as needed Orally every 6 hrs; Duration: 30 days Active metFORMIN HCl 1000 MG 1 tablet with a meal Orally Once a day Active Metoprolol Succinate Active Gabapentin 600 MG 1 tablet Orally Two times a day Active Bethanechol Chloride 25 MG 1 tablet on an empty stomach Orally Three times a day Active amLODIPine Besylate 10 MG 1 tablet Orally Once a day Active Vital Signs Temperature 97.6 degrees Fahrenheit 02/05/20 24 Blood pressure systolic 155 mm Hg 02/05/20 24 Blood pressure diastolic 85 mm Hg 024 Heart Rate 79 /min 02/05/2024 Height 74 in 02/05/2024 Weight 173 lbs 02/05/2024 Oximetry 99 02/05/2024 BMI 22.21 02/05/2024 Encounters Encounter Location Date Provider Diagnosis -[facility]/ [facility] [address] [address] 02/05/2024 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 Z79.891 ; Spondylosis without myelopathy or radiculopathy, cervical region M47.812 ; Radiculopathy, lumbar region M54.16 ; Sacroiliitis, not elsewhere classified M46.1 and Primary osteoarthritis, unspecified shoulder M19.019 Assessments Encounter Date Diagnosis (ICD Code) Assessment Notes Treatment Notes Treatment Clinical Notes Section Notes 02/05/2024 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 He has reported some benefit with occasional hydrocodone being more functional he does have to take care of his . I did discuss with him the concerns of physical dependence, tolerance, addiction, respiratory depression, hyperalgesia, failure. He understood all of that and states that he takes the medication only occasionally and it has helped him function in the past. I discussed with him there could be consideration of a trial of buprenorphine but he does state that his pain is increased with activity so he feels that he would do better just taking the medication very occasionally on an as-needed basis. Additionally, he reports good relief with hydrocodone in the past. 02/05/2024 Primary osteoarthritis, unspecified shoulder (ICD-10 - M19.019) 02/05/2024 Other Reviewed [place] PDMP on 02/04/24 at 10:05 am and patient was not found in the system. Lives in [place] Plan Of Treatment Medication Medication Name Sig Start Date Stop Date Notes HYDROcodone-Acetaminophe n 5-325 MG 1 tablet as needed Orally once a day; Duration: 7 days 02/05/2024 Dr. Miguel Clayton KENDAL: [id number] Treatment Notes Assessment Notes Sacroiliitis, not elsewhere classified t he patient does have diffuse aches and pains and somewhat of a complicated medical history as well as severe degenerative osteoarthritis throughout his body. He has reported some benefit with occasional hydrocodone being more functional he does have to take care of his . I did discuss with him the concerns of physical dependence, tolerance, addiction, respiratory depression, hyperalgesia, failure. He understood all of that and states that he takes the medication only occasionally and it has helped him function in the past. I discussed with him there could be consideration of a trial of buprenorphine but he does state that his pain is increased with activity so he feels that he would do better just taking the medication very occasionally on an as-needed basis. Additionally, he reports good relief with hydrocodone in the past. Pending Test Test Name Order Date UDS [facility] ToxAssure Flex 23 #[id number] Next Appt Details Follow Up: 2 Weeks, Reason: Progress Notes * GUTIERREZ Jesse EDOB:1950 (74 yo M)Acc No.[id number]:02/05/2024 Progress Note Patient: Jesse RED Provider: Abdiel Clayton MD :1950 A ge:73 Y S ex:Male Date:02/05/2024 Address:[address] [place] [address] , [place], [id number] Subjective: * Chief Complaints: * 1 . B knee/leg pain. * HPI: P ain Disability Index: Pain Level C urrent Pain 3 out of 10, P ain at Best 3 out of 10, P ain at Worst 1 0 out of 10. P ain Disability Index F amily/Home Responsibilities: This category refers to activities of the home or family. It includes chores or duties performed around the house(e.g., yard work) and errands or favors for other family members (e.g., driving the children to school). 8 , R ecreation: This disability includes hobbies, sports, and other similar leisure time activities. 8 , S ocial Activity: This category refers to activities, which involves participation, with acquaintances other than family members. It includes parties, theater, concerts, dining out, and other social functions. 8 , O ccupation: This category refers to activities that are part of or related to one's job. This includes non-paying jobs as well, such of that of a xppp-rf-eijb parent or volunteer. 1 0-Worst Disability, S exual Behavior: This category refers to the frequency and quality of one's sex life. 3 , S elf-Care: This category includes activities, which involve personal maintenance and independent daily living (e.g., taking a shower, driving, getting dressed, etc.) 5 , L emeka-Support Activities: This category refers to basic life supporting behaviors such as eating, sleeping, and breathing. 5 . T otal PDI score P atient will continue to be a part of a comprehensive pain management program as tolerated, while and after treatment plan is carried out. The patient reported their current pain is 3/10 currently in office but is a 10/10 at worst and their pain disability index score is 47. The patient comes in today with a history of multiple pain complaints. He states he is doing better with his back pain since the radiofrequency many years ago but does have some pain in his thighs and buttocks as well as his sacroiliac regions and knees. He also has diffuse arthritis and a history of a stroke. He has stated that recently his low back and knees are quite bothersome. He does not want to consider much in the way of intervention but states that in the past when he has been more active he has been able to function better with an occasional hydrocodone. He states he takes no more than one per day. He denies a history of side effects abuse or diversion associated with the medication. P atient Questionnaire: Chief Complaint / Location of your pain: B ack side knees.?How long have you had this pain? Y ears. W hat caused your pain? g radual over time. W hich of the following symptoms is this pain associated with ? (Check all that applies) n umbness,weakness,tingling. T he quality of pain is described as ... (check all that applies)?moderate,severe,mild to moderate,moderate to severe. H ow would you describe your pain? (Check all that applies) s hooting,dull,sharp,burning. W hich of the following makes your pain worse? (Check all that applies) c oughing,physical activity,exercise,walking,sitting,standing,lying down,weather changes,cold. W hich of the following factors improves your pain? (Check all that applies): s itting,lying down. W hich of the following conservative treatments have you tried and failed? (check all that applies) p hysician directed home exercise program. H ave you tried physical therapy? (If Yes where and when): Y es trini il. H ave you tried any of the below medication therapy? (Check all that applies): h ydrocodone,oxycodone. H ave you tried any muscle relaxers? (Check all that applies): n one. H ave you tried any NSAIDs? (Check all that applies): a spirin/aleve,ibuprofen/motrin. P lease list all interventions tried for pain with percentage and duration of relief since last visit: Y es 80%. P lease select the improvement with the following ADL's after intervention: b athing/showering,getting dressed. P lease list all the surgeries from the last visit (when and by which physician): N o. W hat images of this area have been performed and where? Y es mri. A re you on any blood thinners? If yes which one and prescribed by which physician? n one. W ho referred you to our office? Been coming here dr mcgowan. N gayle, Arm or Shoulder Pain? Y es P lease specify pain level (Total Should be 100%) :, N gayle : 5 0, A rm/Shoulder : 5 0. L ower Back, Buttock or Leg Pain? Y es P lease specify pain level (Total Should be 100%) :, B ack: 5 0. * ROS: A complete review of 10 systems was completed and negative unless noted above in history of present illness or intake questionnaire . * Medical History: H igh blood pressure, Diabetes, Rheumatoid Arthritis, Prostate problems/urinary incontinence/bladder infections. * Surgical History: k nee surgery 2012, back surgery 2010. * Family History: F ather: . M other: . S [place]: alive. Abdiel mckinney: alive. N on-Contributory. * Social History: M arried: yes. Children: yes. Smoking: no . A lcohol: no. Exercise: no. Recreational drug use: no. New since last visit: no. * Medications: T aking Folic Acid 1 MG Tablet 1 tablet Orally Once a day , Taking Finasteride 5 MG Tablet 1 tablet Orally Once a day , Taking Cyanocobalamin 100 MCG Tablet as directed Orally , Taking Brimonidine Tartrate 0.2 % Solution 1 drop into affected eye Ophthalmic every 8 hrs , Taking Atorvastatin Calcium 80 MG Tablet 1 tablet Orally Once a day , Taking Horizon [...] as needed Orally every 6 hrs , Discontinued Aspirin 81 MG Capsule 1 capsule Orally Once a day , Discontinued Eliquis 5 MG Tablet as directed Orally , Discontinued Plavix 75 MG Tablet 1 tablet Orally Once a day , Discontinued Clopidogrel Bisulfate 75 MG Tablet 1 tablet Orally Once a day , Medication List reviewed and reconciled with the patient * Allergies: S ulfa, Penicillin. Objective: * Vitals: H t: 74, Wt: 173, BMI: 22.21, BP: 155/85, HR: 79, Temp: 97.6, RR: 18, Pain Scale: 3/10, PO2: 99. * Examination: G eneral examination: General appearance: a lert and oriented to person, place and time. H EENT: N ormocephalic/atraumatic . H eart: R egular rate and rhythm . L ungs: N onlabored breathing . N eurologic exam: 5 /5 and symmetric strength, left-sided facial droop. B ack S ome mild lumbar paraspinous tenderness. E xtremities: N o cyanosis clubbing or edema . M usculoskeletal o steoarthritis in the hands with degenerative changes bilaterally, no acute swelling. left-sided facial droop from history of stroke. Assessment: * Assessment: 1. S pondylosis without myelopathy or radiculopathy, cervical region - M47.812 (Primary) ? 2 . L alfredo term (current) use of opiate analgesic - Z79.891 3 . R adiculopathy, lumbar region - M54.16 4 . S acroiliitis, not elsewhere classified - M46.1 5 . P rimary osteoarthritis, unspecified shoulder - M19.019 ? Plan: * Treatment: 2. S acroiliitis, not elsewhere classified Notes: the patient does have diffuse aches and pains and somewhat of a complicated medical history as well as severe degenerative osteoarthritis throughout his body. He has reported some benefit with occasional hydrocodone being more functional he does have to take care of his . I did discuss with him the concerns of physical dependence, tolerance, addiction, respiratory depression, hyperalgesia, failure. He understood all of that and states that he takes the medication only occasionally and it has helped him function in the past. I discussed with him there could be consideration of a trial of buprenorphine but he does state that his pain is increased with activity so he feels that he would do better just taking the medication very occasionally on an as-needed basis. Additionally, he reports good relief with hydrocodone in the past. 3. O thers Start HYDROcodone-Acetaminophen Tablet, 5-325 MG, 1 tablet as needed, Orally, once a day, 7 days, 7 Tablet, Refills 0, Notes to Pharmacist: Dr. Miguel Clayton KENDAL: [id number]. Clinical Notes: Reviewed [place] PDMP on 02/04/24 at 10:05 am and patient was not found in the system. Lives in [place] * Follow Up: 2 Weeks * Images: Billing Information: * Visit Code: 27362 Office Visit, Est Pt., Level 3. * Procedure Codes: * Electronic signature of Miguel Clayton MD on 01/30/2025 at 12:02 PM CDT Sign off status: Pending * Provider: Abdiel Clayton MD Date: 02/05/2024 Generated for Chan recio/Camilo/eTransmitting on: 01/30/2025 12:02 PM CDT History and Physical Notes * HPI (History of Present Illness) Category Sub-Category Detail Notes Category Not es Pain Disability Index Pain Disability Index Family/Home Responsibilities: This category refers to activities of the home or family. It includes chores or duties performed around the house(e.g., yard work) and errands or favors for other family members (e.g., driving the children to school).: 8 The patient comes in today with a history of multiple pain complaints. He states he is doing better with his back pain since the radiofrequency many years ago but does have some pain in his thighs and buttocks as well as his sacroiliac regions and knees. He also has diffuse arthritis and a history of a stroke. He has stated that recently his low back and knees are quite bothersome. He does not want to consider much in the way of intervention but states that in the past when he has been more active he has been able to function better with an occasional hydrocodone. He states he takes no more than one per day. He denies a history of side effects abuse or diversion associated with the medication. Recreation: This disability includes hobbies, sports, and other similar leisure time activities.: 8 Social Activity: This catego ry refers to activities, which involves participation, with acquaintances other than family members. It includes parties, theater, concerts, dining out, and other social functions.: 8 Occupation: This category re fers to activities that are part of or related to one's job. This includes non-paying jobs as well, such of that of a pkhl-in-sxuf parent or volunteer.: 10-Worst Disability Sexual Behavior: This catego ry refers to the frequency and quality of one's sex life.: 3 Self-Care: This category inc ludes activities, which involve personal maintenance and independent daily living (e.g., taking a shower, driving, getting dressed, etc.): 5 Life-Support Activities: Thi s category refers to basic life supporting behaviors such as eating, sleeping, and breathing.: 5 Pain Level Current Pain: 3 out of 10 Pain at Best: 3 out of 10 Pain at Worst: 10 out of 10 Total PDI score Patient will continu e to be a part of a comprehensive pain management program as tolerated, while and after treatment plan is carried out. The patient reported their current pain is 3/10 currently in office but is a 10/10 at worst and their pain disability index score is 47 Patient Questionnaire Chief Complaint / Location of yo ur pain: Back side knees How long have you had this pain? Years What caused your pain? gradual over time Which of the following sympt oms is this pain associated with ? (Check all that applies) numbness,weakness,tingling The quality of pain is descr ibed as ... (check all that applies) moderate,severe,mild to moderate,moderat e to severe How would you describe your pain? (Check all that applies) shooting,dull,sharp,burning Which of the following makes your pain worse? (Check all that applies) coughing,physical activity,exercise,walking,sitting,standin g,lying down,weather changes,cold Which of the following facto rs improves your pain? (Check all that applies): sitting,lying down Which of the following conse rvative treatments have you tried and failed? (check all that applies) physician directed home exercise program Have you tried physical laboratory assistant apy? (If Yes where and when): Yes trini [place] Have you tried any of the be low medication therapy? (Check all that applies): hydrocodone,oxycodone Have you tried any muscle re laxers? (Check all that applies): none Have you tried any NSAIDs? ( Check all that applies): aspirin/aleve,ibuprofen/motrin Please list all intervention s tried for pain with percentage and duration of relief since last visit: Yes 80% Please select the improvemen t with the following ADL's after intervention: bathing/showering,getting dressed Please list all the surgerie s from the last visit (when and by which physician): No What images of this area hav e been performed and where? Yes mri Are you on any blood thinner s? If yes which one and prescribed by which physician? none Who referred you to our office? Been com ing here dr mcgowan Neck, Arm or Shoulder Pain? Yes: Please specify pain level (Total Should be 100%) : Neck :: 50 Arm/Shoulder :: 50 Lower Back, Buttock or Leg Pain? Yes: Pl ease specify pain level (Total Should be 100%) : Back:: 50 Examination Category Sub-Category Detail Notes Category Not es General examination HEENT: Normocephalic/atrauma tic left-sided facial droop from history of stroke Heart: Regular rate and rhy thm Lungs: Nonlabored breathing Extremities: No cyanosis clubbing or edema General appearance: alert and oriented t o person, place and time Neurologic exam: [address]ngth, left-sided facial droop Back Some mild lumbar par aspinous tenderness Musculoskeletal osteoarthritis in th e hands with degenerative changes bilaterally, no acute swelling
--- OUTSIDE RECORDS SUMMARY | 2024-03-09 06:00 | XMS_ITS ---
Author Organization [facility] Address [address] [place] [address] Care Team Providers Care Architecture Manager Name Role Phone Miguel Clayton Unavailable [phone] Betzy Montana MD Unavailable Unavailable Allergies Allergen (clinical drug ingredient) Drug/Non Drug Allergy documented on EMR Reaction Allergy Type Onset Date Status penicillin (uncoded) Unknown Allergy Active Substance with sulfonamide structure and antibacterial mechanism of action (substance) sulfa (uncoded) Unknown Allergy Active REASON FOR VISIT Meds with SEC ACCOUNTANT Medications Medication SIG (Take, Route, Frequency, Duration) [...] Duration: [address] Miguel Clayton KENDAL: [id number] 02/05/2024 Active EnteraGam 5 GM Orally Activ [...] W/U Status Risk Notes Problem Lumbar radiculopathy ([id number]) Radiculopat hy, lumbar region (M54.16) Active confirmed Encounters Encounter Location Date Provider Diagnosis -[facility]/ PH[facility] [address] [facility] [address] [place] [address] 03/09/2024 Miguel Clayton jail (current) use of opiate analgesic Z79.891 ; Spondylosis without myelopathy or radiculopathy, cervical region M47.812 ; Radiculopathy, lumbar region M54.16 ; Sacroiliitis, not elsewhere classified M46.1 and Primary osteoarthritis, unspecified shoulder M19.019 Assessments Encounter Date Diagnosis (ICD Code) Assessment Notes Treatment Notes Treatment Clinical Notes Section Notes 03/09/2024 jail (current) use of opiate analgesic (ICD-10 - [...] shoulder (ICD-10 - M19.019) 03/09/2024 Other Reviewed [place] PDMP on 02/04/24 at 10:05 am and patient was not found in the system. Lives in [place] Plan Of Treatment Medication Medication Name Sig [...] * Jesse HUNTER EDOB:1950 (74 yo M)Acc No.[id number]:03/09/2024 Progress Notes Patient: Jesse RED Provider: Abdiel Clayton MD Resource:Leia Valdez :1950 A ge:73 Y S ex:Male Date:03/09/2024 Address:[address] [place] [address] [id number] Subjective: * Chief Complaints: * 1 . 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 * HPI: P ain Disability Index: Pain [...] as well, such of that of a eutb-zx-dshi parent or volunteer. 1 0-Worst Disability, S [...] Notes to Pharmacist: Dr. Miguel Clayton KENDAL: [id number], Medication List reviewed and reconciled with the [...] past. 3. O thers Clinical Notes: Reviewed [place] PDMP on 02/04/24 at 10:05 am and patient was not found in the system. Lives in [place] * Images: Billing Information: * Visit Code: * Procedure Codes: * Electronic signature of Miguel Clayton MD on 01/30/2025 at 12:01 PM CDT Sign off status: Pending * Provider: Abdiel Clayton MD Date: Generated for [facility] almita/Camilo/Berlinitting on: 0 01/30/2025 12:01 PM CDT History and Physical Notes * [...] as well, such of that of a lwsy-ya-szrm parent or volunteer.: 10-Worst Disability Sexual Behavior: [...] directed home exercise program Have you tried licensed physical therapist assistant apy? (If Yes where and when): [...]
--- OUTSIDE RECORDS SUMMARY | 2024-05-04 08:30 | XMS_ITS ---
Author Organization [facility] Address [address] [place] [address] Care Team Providers Care Guard Supervisor Name Role Phone Miguel Clayton Unavailable [phone] Betzy Montana MD Unavailable Unavailable Allergies Allergen (clinical drug ingredient) Drug/Non Drug Allergy documented on EMR Reaction Allergy Type Onset Date Status penicillin (uncoded) Unknown Allergy Active Substance with sulfonamide structure and antibacterial mechanism of action (substance) sulfa (uncoded) Unknown Allergy Active REASON FOR VISIT Lumbar MBB @ [facility] No Sedation Medications Medication SIG (Take, Route, Frequency, Duration) Notes Start Date End Date Status Atorvastatin Calcium 80 MG 1 tablet Orally Once a day; Duration: 30 day(s) Active Horizon Lumbar Support as directed 01/07/2017 Active amLODIPine Besylate 10 MG 1 tablet Orally Once a day Active Bethanechol Chloride 25 MG 1 tablet on an empty stomach Orally Three times a day Active Brimonidine Tartrate 0.2 % 1 drop into affected eye Ophthalmic every 8 hrs Active HYDROcodone-Acetaminoph en 5-325 MG 1 tablet as needed Orally once a day; Duration: [address] Gabriel West KENDAL: [id number] 04/21/2024 Active Folic Acid 1 MG 1 tablet Orally Once a day; Duration: 30 day(s) Active Finasteride 5 MG 1 tablet Orally Once a day; Duration: 30 day(s) Active Cyanocobalamin 100 MCG as directed Orally Active HYDROcodone-Acetaminoph en 7.5-325 MG 1 tablet as needed Orally every 6 hrs; Duration: 7 days Active Gabapentin 600 MG 1 tablet Orally Two times a day Active Metoprolol Succinate Active Furosemide 40 MG 1 tablet Orally Once a day Active EnteraGam 5 GM Orally Activ e metFORMIN HCl 1000 MG 1 tablet with a meal Orally Once a day Active Encounters Encounter Location Date Provider Diagnosis -[facility] [address] [place] [id number] 05/04/2024 Miguel Clayton Plan Of Treatment No Information Progress Notes * Jesse HUNTER EDOB:1950 (74 yo M)Acc No.[id number]:05/04/2024 Progress Note Patient: Jesse RED Provider: Abdiel Clayton MD :1950 A ge:73 Y S ex:Male Date:05/04/2024 Address:[address] [place] [address], [facility] [place]-[id number] Subjective: * Chief Complaints: * 1 . Lumbar MBB @ [facility] No Sedation. * ROS: A complete review of 10 systems was completed and negative unless noted above in history of present illness or intake questionnaire . * Medical History: H igh blood pressure, Diabetes, Rheumatoid Arthritis, Prostate problems/urinary incontinence/bladder infections. * Surgical History: k nee surgery 2012, back surgery 2010. * Family History: F ather: . M other: . S iblings: alive. C brantbrian: alive. N on-Contributory. * Social History: M [...] a day , Notes to Pharmacist: Dr. Gabriel West KENDAL: [id number], Medication List reviewed and reconciled with the patient * Allergies: S ulfa, Penicillin. Objective: * Vitals: Assessment: Plan: * Treatment: * Images: Billing Information: * Visit Code: * Procedure Codes: * Electronic signature of Miguel Clayton MD on 01/30/2025 at 12:02 PM CDT Sign off status: Pending * Provider: Abdiel Clayton MD Date: 07/05/2023 Generated for Chan recio/Camilo/Ariadna on: 0 01/30/2025 12:02 PM CDT
[2025-01-30] VITALS (9 sets, daily range): BP systolic 138–162; BP diastolic 65–82; PULSE 53–73; RESP 16–18; TEMP 36.3–36.6; O2SAT 100; BMI 20.3
--- NOTE | ~2025-01-30 | CT_ITS ---
Jesse Mckeoners EXAMINATION: CT abdomen pelvis w con COMPARISON: None HISTORY: ab pain TECHNIQUE: Axial images were obtained through the abdomen, pelvis post administration of IV contrast. Oral contrast was also administered. Coronal reconstruction images were obtained from the axial views. CT scan performed using dose optimization techniques including the following automated exposure control; adjustment of mA and/or kV; use of iterative reconstruction technique. Automatic exposure control was used to reduce radiation dose. Permanent radiation dose record is archived to PACS. FINDINGS: CT abdomen: LUNG BASES: The lung bases are clear. The visualized portions of the heart and pericardium are unremarkable. LIVER: Portal vein patent. No intrahepatic biliary duct dilatation. SPLEEN: Unremarkable. KIDNEYS: Right Kidney: Unremarkable. No calculi. No hydronephrosis. Left Kidney: Unremarkable. No calculi. No hydronephrosis ADRENAL GLANDS: Unremarkable. PANCREAS: Mild pancreatic atrophy. GALLBLADDER/BILIARY: Post cholecystectomy. STOMACH AND ESOPHAGUS: The stomach is decompressed. BOWEL/MESENTERY: Mild diverticulosis. No colitis or diverticulitis. Appendix normal. Mesentery normal. Small bowel normal. ADENOPATHY/RETROPERITONEUM: No lymphadenopathy. AORTA/VASCULATURE: Normal caliber aorta. FREE FLUID OR FREE AIR: Trace free fluid.. CT pelvis: SOLID ORGANS/REPRODUCTIVE: Unremarkable. BLADDER: Within normal limits. OSSEOUS STRUCTURES: No sclerotic or lytic lesions. Moderate degenerative changes. OVERLYING SOFT TISSUES: Small fat-containing right inguinal hernia with sequelae of previous surgery noted. IMPRESSION: No acute intra-abdominal process. Reviewed, dictated and finalized at location A.
--- OUTSIDE RECORDS SUMMARY | 2025-01-30 12:01 | XMS_ITS | Patient Health Record ---
Author Organization [facility] Address [address] [place] [address] Care Team Providers Care Electrical Products Sales Engineer Name Role Phone Miguel Clayton Unavailable [phone] Nan JUAREZ, Betzy Unavailable Unavailable Gabriel West Unavailable [phone] Allergies Allergen (clinical drug ingredient) Drug/Non Drug [...] Duration: [address] Gabriel West KENDAL: [id number] 04/21/2024 Active Atorvastatin Calcium 80 MG 1 [...] osteoarthritis of the pelvic region and thigh (953349797) Unilateral primary osteoarthritis, unspecified hip (M16.10) Active confirmed Problem Osteoarthritis of knee (148784019) Bilateral primary osteoarthritis of knee (M17.0) Active confirmed Problem Localized, primary osteoarthritis of the shoulder region (209764036) Primary osteoarthritis, 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) Active confirmed Problem Pain of right knee region (finding) (729960046174608) Pain in right knee (M25.561) Active confirmed Problem Solitary sacroiliitis (154181711) Sacroiliitis, not elsewhere classified (M46.1) Active confirmed Problem Lumbosacral spondylosis without myelopathy (03812952) Other spondylosis with radiculopathy, lumbar region (M47.26) Active confirmed Problem Cervical spondylosis without myelopathy (754515093) Spondylosis without myelopathy or radiculopathy, cervical region (M47.812) Active confirmed Problem Lumbosacral spondylosis without myelopathy (79561122) Spondylosis without myelopathy or radiculopathy, lumbar region (M47.816) Active confirmed Problem Lumbosacral spondylosis without myelopathy (disorder) (70265408) Spondylosis without myelopathy or radiculopathy, lumbosacral region (M47.817) Active confirmed Problem Lumbar radiculopathy (773624040) Radiculopathy, lumbar region (M54.16) Active confirmed Vital Signs Heart Rate 85 /min 04/20/2024 Temperature 98.2 degrees Fahrenheit 04/20/2024 Oximetry 97 04/20/2024 Blood pressure diastolic 87 mm Hg 04/20/2024 Height 74 in 04/20/2024 Blood pressure systolic 167 mm Hg 04/20/2024 Weight 173 lbs 04/20/2024 BMI 22.21 04/20/2024 Procedures Procedure Date Ordered Date Performed Result Body Sit e *ASC LUMBAR FACET/MBB JOINT INJ BILATERAL#1 31457 1st level, 04191 2nd level 04/20/2024 N/A Encounters Encounter Location Date Provider Diagnosis -[facility] [address] [facility] [address] [place] [address] 02/05/2024 Miguel Clayton wet primer powder blender (current) use of opiate analgesic Z79.891 ; Spondylosis without myelopathy or radiculopathy, cervical region M47.812 ; Radiculopathy, lumbar region M54.16 ; Sacroiliitis, not elsewhere classified M46.1 and Primary osteoarthritis, unspecified shoulder M19.019 -[facility] [address] [facility] [address] [place] [id number] 04/20/2024 Miguel Clayton Spondylosis without myelopathy or radiculopathy, lumbar region M47.816 and Bilateral primary osteoarthritis of knee M17.0 -[facility] [address] [facility] [address] [place] [address] 04/21/2024 Gabriel West -103 [facility] [address] [facility] [address] [place] [address] 04/23/2024 Miguel Clayton Assessments Encounter Date Diagnosis [...] the risks of respiratory depression. He 02/05/2024 wet primer powder blender (current) use of opiate analgesic (ICD-10 - [...] shoulder (ICD-10 - M19.019) 02/05/2024 Other Reviewed [place] PDMP on 02/04/24 at 10:05 am and patient was not found in the system. [place] 03/09/2024 Other Reviewed [place] PDMP on 02/04/24 at 10:05 am and patient was not found in the system. [place] 04/20/2024 Other Reviewed [place] PDMP on 04/20/24 at 7:14 am and patient was not found in the system. [place] unable to check PDMP Given 7 days to start [place]-[facility]et 5-325 on 01/2024 Plan Of Treatment Pending Test Test Name Order Date X ray : Knee, right 07/18/2022 TENS unit 04/03/2017 MRI : Lumbar Spine With/Without Contrast 09/13/2017 MRI : Lumbar Spine With/Without Contrast 07/18/2016 x-ray : bilateral shoulders 01/07/2017 *ASC LUMBAR FACET/MBB JOINT INJ BILATERAL#1 09549 1st level, 01632 2nd level 04/20/2024 UDS [facility] ToxAssure Flex 23 #[id number] Insurance Providers Payer Name Payer Address Payer Phone Subscriber Number Group Number Insured Name Patient Relationship to Insured Coverage Start Date Coverage End Date [place] [address] [address] [place] [address] [phone] [id number] Jesse Hunter Self - patient is the insured 5 [place] [employer] [address] [place] [address] [phone] [id number] Jesse Hunter Self - patient is the insured [facility] for Life - T4L [address] [place] [address] [id number] Jesse Hunter Self - patient is the insured [place] [address] [address] [place] [address] [phone] [id number] Hunter Jesse Self - patient is the insured Medical (General) History Medical History History ICD Code high blood pressure diabetes Rheumatoid Arthritis Prostate problems/urinary incontinence/b ladder infections Surgical History Surgery Date(Month/Year) knee surgery 2012 back surgery 2010 Hospitalization History Reason Date(Month/Year)
--- OUTSIDE RECORDS SUMMARY | 2025-01-30 12:01 | XMS_ITS | Patient Health Record ---
Author Organization [facility] Address [address] [place] [address] [address] [place] [id number] Care Team Providers Care Family Coach Name Role Phone Victorina JUAREZ, Raymundo Primary Care Provider Unavailable Reason For Referral No Information Plan Of Treatment No Information Insurance Providers Payer Name Payer Address Payer Phone Subscriber Number Group Number Insured Name Patient Relationship to Insured Coverage Start Date Coverage End Date Medicare E2 [address] [address] [place] [address] [phone] [id number] Jesse Hunter Self - patient is the insured 5 [facility] E2 [address] [place] [address] [id number] Jesse Hunter Self - patient is the insured 4
--- OUTSIDE RECORDS SUMMARY | 2025-01-30 12:02 | XMS_ITS | Clinical Summary ---
Author Organization [facility] [employer] Address [address] [facility] [place] [address] Care Team Providers Care Loss Prevention Manager Name Role Phone Betzy Montana MD Unavailable [phone] Dora Peraza MD Unavailable [phone] Gabriel Camarena MD Unavailable [phone] Wyatt Ang MD Unavailable [phone] Skyler Noriega DPM Unavailable [phone] Selwyn Acharya MD Unavailable Unavailable Shemar Lawler MD Unavailable [phone] Nelda Grove MD Unavailable [phone] Afsaneh Kang LABEL MACHINE OPERATOR-TELEPHONE ORDER SUPERVISOR Unavailable Joshua Coats MD Primary Care Provider [phone] Source Comments [facility] [employer],non-owned Affiliates and Associated Physician Practices is amultiple site organization consisting of ambulatory clinics and hospital sitesin [place], [place], [place] and [place]. This disclosure is being madepursuant to the Care Everywhere program and may not contain all information available regarding this patient. Last updated 18.[facility] [employer] Allergies Active Allergy Reactions Criticality Noted Date [...] 9 mL 5 10/05/19 23 Active Pancreaze 11537-18582 units capsule TAKE 3 CAPSULES BY MOUTH [...] MCG/ACT nasal sprayIndication s:Eustachian tube disorder, bilateral Creole 2 (two) sprays into each nostril once [...] (05/07/2023): 07/2022 right knee x-rays with advanced domk-bu-vjkr medial compartment joint space narrowing. May not [...] Seizure 12/28/2021 Overview (12/28/2021): 10/06/21 Heena Yadav, LABEL MACHINE OPERATOR-TELEPHONE ORDER SUPERVISOR Nurse Practitioner Family Bilateral non-palpable testicles [...] (nonsustained ventricular tachycardia) 12/11 Overview (12/21/2020): 08/09/2020 [facility] Janine Awad Pradeep, MD Parkinsonism, unspecified Parkinsonism type 12/11 Overview (12/21/2020): 11/07/2019 [facility] Lindsay Awad Danuta M, MD Calcification of [...] Encounters Date Type Department Care Team Description 01/27/2025 Patient Outreach [facility] - Care Coordination [address] [place] [address] Nieves Smith MA [...] Recorded Patient Health Questionnaire-2 Score 0 02/04/2024 [facility] [place] of Occupat ional Health - Occupational Stress [...] place to sleep or slept in a longterm (including now)? 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 Medical Devices Implanted Type Area Quality Control Representative Device Identifier Shelf Expiration Date Model / Serial / Lot Ent Kit Implanted:Qty : 1 on 09/23/2020 by Nelda Grove MD at [facility] Right: Abdomen 01/07/2023 [id number] / / [id number] Oclr Cv 24mm Dlv Sys Watchman Flx Strl Implanted:Qty : 1 on 02/28/2022 by Jeffrey Camarena MD at [facility] [employer] [id number] 10/29/2024 [id number] / NA / [id number] Explanted Type Area Quality Control Representative Device Identifier Shelf Expiration Date Model / Serial / Lot Oclr Cv 20mm Dlv Sys Watchman Flx Strl Explanted:Qty: 1 on 02/28/2022 at [facility] [employer] [id number] 08/22/2024 [id number] / NA / [id number] Procedures Procedure Name Priority Date/Time Associated Diagnosis [...] CNT[facility] FM Creatinine POCT 200 [facility] Microalbumin/Crea tinine Ratio <30 [facility] CNTY Urine URINE / Unknown 02/04/2024 2 :30 PM CDT Afsaneh Kang LABEL MACHINE OPERATOR-TELEPHONE ORDER SUPERVISOR LAB - POINT OF CA RE ORDERABLES Final Result [facility] CNTY [address] [phone] * (ABNORMAL) COMPREHENSIVE METABOLIC PANEL (01/31/2024 11:32 [...] 6:15 AM CDT Performed at: 01 - [facility] [place] [address] [place], [place] [id number] Fiber Locking Supervisor: Dae Freeman PhD, Phone: [phone] us Timi Weinberg MD LAB - CHEMISTRY ORDERABLES Final Result [facility] INSURANCE BILL [address] [place] [address] * HEMOGLOBIN A1C - POINT OF CARE (HgbA1C) (08/19/2023 1:30 PM CDT) Hemoglobin A1c POCT 7.0 % [facility] FM Expiration Date 11/08/23 [facility] FM Lot # [id number] [facility] QC Verified Yes Yes [facility] CNT[facility] FM Blood BLOOD SPECIMEN / Unknown 08/19/2023 1:30 PM CDT us Afsaneh Kang LABEL MACHINE OPERATOR-TELEPHONE ORDER SUPERVISOR LAB - POINT OF CA RE ORDERABLES Final Result [facility] FM [address] [phone] * DIABETES EYE EXAM (11/25/2020) us Scanned [...] Agency Comment Lab Testing performed at: [facility] [address] [facility] [phone] us Eboni Watkins LABEL MACHINE OPERATOR-TELEPHONE ORDER SUPERVISOR LAB - CHEMISTRY ORD ERABLES Final Result [facility] INSURANCE BILL [address] [place] [address] * COLONOSCOPY (12/16/2012) 12/16/2012 Narrative 12/16/2012 Ordered by an unspecified provider. us Scanned Document SCANNING ONLY Final Result from Last 3 Months or Most Recently Relevant to Health [place] [address] [facility] MEDICARE [facility] [address] Advance Directives * Full Code (Latest Code [...] 11:16 AM 03/01/2022 3:37 PM Care Teams Loss Prevention Manager Relationship Specialty Start Date End Date Afsaneh Kang, LABEL MACHINE OPERATOR-TELEPHONE ORDER SUPERVISOR [address] [place] [address] PCP - Attributed-MSSP 01/12/24 Joshua Coats MD [address] [place] [address] PCP - General Family Medicine 01/27/25 Betzy Montana MD [address] [facility] [address] [place] [address] Rheumatology 11/24/19 [place] [address] [place], [place] [id number] Orthopedic Surgery 03/14/20 Gabriel Camarena MD [address] [place], [place] [id number] Cardiovascular Disease 08/04/20 Wyatt Ang MD [address] [facility] [address] [place] [id number] Cardiology 08/04/20 Skyler Noriega DPM [address] [place] [address] Podiatry 08/16/20 Selwyn Acharya MD [address] [place] [address] Endocrinology 08/16/20 Shemar Lawler MD [address] [facility] [address] [place] [address] Physician Gastroenterology 11/09/20 Nelda Grove MD [facility] [place] [address] Physician Urology 01/06/21
--- OUTSIDE RECORDS SUMMARY | 2025-01-30 12:02 | XMS_ITS | Encounter Summary ---
Author Organization [employer] Address 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
--- OUTSIDE RECORDS SUMMARY | 2025-01-30 12:02 | XMS_ITS | Clinical Summary ---
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
--- OUTSIDE RECORDS SUMMARY | 2025-01-30 12:02 | XMS_ITS | Encounter Summary ---
Author Organization [facility] Address 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
--- OUTSIDE RECORDS SUMMARY | 2025-01-30 12:02 | XMS_ITS | Encounter Summary ---
Author Organization [facility] Address [address] [place] [address] Care Team Providers Care Square Cutter Name Role Phone Maxim Martínez MD Primary Care Provider Encounter Details Date Type Department Care Team (Latest Contact Info) Description 03/23/2003 Outpatient Historical [facility] YOLANDA Goode, Jason Colon MD [address] [place] [address] [place] [address] ELEV TRANSAMINASE/LDH (Primary Dx) Social History Tobacco Use Types Packs/Day Years Used Date Smoking Tobacco: Never Assessed Sex and Gender Information Value Date Recorded Sex Assigned at Not on file Legal Sex Male 5:21 AM MAILROOM COORDINATOR Gender Identity Not on file Sexual Orientation [...] documented as of this encounter Care Teams Square Cutter Relationship Specialty Start Date End Date Maxim Martínez MD PCP - General 01/14/18 documented as of this encounter
--- OUTSIDE RECORDS SUMMARY | 2025-01-30 12:02 | XMS_ITS | Encounter Summary ---
Author Organization [employer] Address [address] [place] [address] Care Team Providers Care Statistical Machine Mechanic Name Role Phone Maxim Martínez MD Primary Care Provider Encounter Details Date Type Department Care Team (Late st Contact Info) Description 02/05/2003 Outpatient Historical [facility] MRI DEPT Jason Goode MD [address] [place] [address] [place] [address] MELENA, BLOOD IN STOOL (Primary Dx) Social History Tobacco Use Types Packs/Day Years Used Date Smoking Tobacco: Never Assessed Sex and Gender Information Value Date Recorded Sex Assigned at Not on file Legal Sex Male 5:21 AM TURNER OFF Gender Identity Not on file Sexual Orientation [...] documented as of this encounter Care Teams Statistical Machine Mechanic Relationship Specialty Start Date End Date Maxim Martínez MD PCP - General 01/14/18 documented as of this encounter
--- OUTSIDE RECORDS SUMMARY | 2025-01-30 12:02 | XMS_ITS | Patient Health Record ---
Author Organization [facility] Address [address] [place] [id number] Care Team Providers Care Rn Complex Care Name Role Phone Victorina JUAREZ, Raymundo Primary Care Provider Unavailable Davian Cruz Unavailable [phone] ALLERGIES Allergen (clinical drug ingredient) Drug/Non Drug [...] (primary) hypertension (I10) Active confirmed Essential hypertension (90293040) Problem Acute kidney failure, unspecified (N17.9) Active confirmed Acute renal failure syndrome (06599175) Has resolved now PLAN OF TREATMENT No Information Insurance Providers Payer Name Payer Address Payer Phone Subscriber Number Group Number Insured Name Patient Relationship to Insured Coverage Start Date Coverage End Date Medicare Part B [address] [place] [address] [phone] [id number] Jesse Hunter Self - patient is the insured [facility] [address] [place] [address] [id number] Jesse Hunter Self - patient is the insured [employer] [address] [place] [address] [phone] [id number] Jesse Hunter Self - patient is the [...]
--- OUTSIDE RECORDS SUMMARY | 2025-01-30 12:02 | XMS_ITS | Clinical Summary ---
Author Organization [facility] Address [address] [place] [address] Care Team Providers Care Manager Of Allied Health Services Name Role Phone Unavailable Primary Care Provider Unavailabl e Allergies Active Allergy Reactions Criticality Noted Date Comments Aspirin GI Intolerance 12/02/2018 Banana Itching Medium 02/07/2014 Latex Itching Medium 02/07/2014 Metoclopramide Other (See Comments) High 11/13/2019 Ataxia and other parkinson like symptoms Penicillins Hives,Rash Medium 08/08/2010 Sulfa Antibiotics Swelling,Rash Medium 08/08/2010 Medications pancrelipase, Lih-Uhub-Xkac, (PANCREAZE) 71271 units capsule Take 3 capsules by mouth [...] Comments Blood Pressure 139/77 05/05/2020 8:25 AM MOUNTAIN BIKE GUIDE Pulse 93 05/05/2020 8:25 AM MOUNTAIN BIKE GUIDE Temperature 36.2 C (97.1 F) 05/05/2020 8:25 AM MOUNTAIN BIKE GUIDE Respiratory Rate 18 05/05/2020 8:25 AM MOUNTAIN BIKE GUIDE Oxygen Saturation 97% 05/05/2020 8:25 AM MOUNTAIN BIKE GUIDE Inhaled Oxygen Concentration - - Weight 78.2 kg (172 lb 6.4 oz) 05/01/2020 6:56 A M MOUNTAIN BIKE GUIDE Height 188 cm (6' 2) 04/24/2020 5:13 PM MOUNTAIN BIKE GUIDE Body Mass Index 22.13 04/24/2020 5:13 PM MOUNTAIN BIKE GUIDE Plan of Treatment Health Maintenance Due Date [...]
--- OUTSIDE RECORDS SUMMARY | 2025-01-30 12:02 | XMS_ITS | Clinical Summary ---
Author Organization [facility] Address [facility] [place] [address] Care Team Providers Care Dough Mixer Helper Name Role Phone Shemar Hassan MD Primary Care Provider [phone] Allergies Active Allergy Reactions Criticality Noted Date [...] times daily with meals. 2 Active pancrelipase, Bae-Aiff-Ckdb, (PANCREAZE) [address] units CAPSULE ENTERIC COATED PARTICLES capsule Take [...] Noted Date Diagnosed Date COVID-19 12/30/2022 Sepsis ([facility]) 12/28/2022 Family History Medical History Relation Comments [...] [place] health [place] (including now)? No 12/28/2022 Sex and Gender [...] C 08/30/1968 Annual Medicare Wellness Visit 2014 RSV Immunization or 60+ Years (1 - 1-dose 75+ series) 2024 COVID-19 Vaccine ( season) 2025 03/06/2022, 11/17/2021, 01/12/2021, Additional history exists DTaP, Tdap and Td Vaccines (4 - [...] age to complete this topic Insurance [address] [place], [place] [address] MEDICARE [facility] [employer] [employer] Advance Directives * Full Code (Latest Code Status on File) Date Activated Date Inactivated Comments 12/28/2022 4:47 PM 01/01/2023 7:48 PM Care Teams Dough Mixer Helper Relationship Specialty [place] [address] [address] PCP - General FAMILY PRACTICE 02/13/22
--- OUTSIDE RECORDS SUMMARY | 2025-01-30 12:02 | XMS_ITS | Encounter Summary ---
Author Organization [facility] Address [address] [place] [address] Care Team Providers Care Preforms Laminator Name Role Phone Maxim Martínez MD Primary Care Provider Encounter Details Date Type Department Care Team (Latest Contact Info) Description 01/28/2003 Outpatient Historical [facility] YOLANDA Goode, Jason Colon MD [address] [facility] [place] [address] MELENA, BLOOD IN STOOL (Primary Dx) Social History Tobacco Use Types Packs/Day Years Used Date Smoking Tobacco: Never Assessed Sex and Gender Information Value Date Recorded Sex Assigned at Not on file Legal Sex Male 5:21 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
--- OUTSIDE RECORDS SUMMARY | 2025-01-30 12:02 | XMS_ITS | Encounter Summary ---
Author Organization [employer] Address [address] [place] [address] Care Team Providers Care Special Forces Weapons Sergeant Name Role Phone Maxim Martínez MD Primary Care Provider Encounter Details Date Type Department Care Team (Late st Contact Info) Description 08/30/2006 Outpatient Historical [facility] LAB, [address] Preston Patel MD [address] [place] [address] Social History Tobacco Use Types Packs/Day Years Used Date Smoking Tobacco: Never Assessed Sex and Gender Information Value Date Recorded Sex Assigned at Not on file Legal Sex Male 5:21 AM MEDIA STRATEGIST Gender Identity Not on file Sexual Orientation [...] INTERFACE SYSTEM Comment: Lab test performed by: [employer] [address] [place] [address] [address] BANG CHRIS MD 08/30/2006 11:4 4 AM CDT us Preston Patel MD CHEMISTRY ORDERABLES Edited Performing Organization Address [facility] Phone Number INTERFACE SYSTEM Refer to clinic/hospital department * HEPATITIS B SURFACE ANTIGEN (08/30/2006 11:44 AM CDT) HEPATITIS B SURFACE AG NON-REACTI VE NON-REACT AMISH INTERFACE SYSTEM Comment: Lab test performed by: [employer] [address] [place] [address] DR BANG CHRIS MD 08/30/2006 11:4 4 AM CDT us Preston Patel MD CHEMISTRY ORDERABLES Edited Performing Organization Address [facility] Phone Number INTERFACE SYSTEM Refer to clinic/hospital department * HIV RAPID SCREEN (08/30/2006 11:44 AM CDT) RAPID HIV SCREEN Nonreactive Nonreactive INTERFACE SYSTEM Comment:Results called to Zachary keene at 08/30/2006 12:04 PM and read back verified. 08/30/2006 11:4 4 AM CDT us Preston Patel MD CHEMISTRY ORDERABLES Edited Performing Organization Address [facility] Phone Number INTERFACE SYSTEM Refer to clinic/hospital department documented in this encounter Visit Diagnoses Not on filedocumented in this encounter Additional Health Concerns Infection Onset Date Last Indicated Resolved Time MRSA Comment:02/2014 L knee, 04/2014 nares, left knee and blood 02/17/2014 02/17/2014 documented as of this encounter Care Teams Special Forces Weapons Sergeant Relationship Specialty Start Date End Date Maxim Martínez MD PCP - General 01/14/18 documented as of this encounter
--- OUTSIDE RECORDS SUMMARY | 2025-01-30 12:02 | XMS_ITS | Encounter Summary ---
Author Organization [employer] Address [address] [place] [address] Care Team Providers Care Strip Mill Operator Name Role Phone Maxim Martínez MD Primary Care Provider Encounter Details Date Type Department Care Team (Late st Contact Info) Description 03/19/2003 Outpatient Historical [facility] Jason Goode MD [address] [place] [address] [place] [address] MELENA, BLOOD IN STOOL (Primary Dx) Social History Tobacco Use Types Packs/Day Years Used Date Smoking Tobacco: Never Assessed Sex and Gender Information Value Date Recorded Sex Assigned at Not on file Legal Sex Male 5:21 AM AQUARIST Gender Identity Not on file Sexual Orientation [...] documented as of this encounter Care Teams Strip Mill Operator Relationship Specialty Start Date End Date Maxim Martínez MD PCP - General 01/14/18 documented as of this encounter
--- OUTSIDE RECORDS SUMMARY | 2025-01-30 15:28 | XMS_ITS | Clinical Summary ---
Author Organization [facility] Address [address] [place] [address] Care Team Providers Care Rehab Care Assistant Name Role Phone Unavailable Primary Care Provider Unavailabl e Allergies Active Allergy Reactions Criticality Noted Date Comments Aspirin GI Intolerance 12/02/2018 Banana Itching Medium 02/07/2014 Latex Itching Medium 02/07/2014 Metoclopramide Other (See Comments) High 11/13/2019 Ataxia and other parkinson like symptoms Penicillins Hives,Rash Medium 08/08/2010 Sulfa Antibiotics Swelling,Rash Medium 08/08/2010 Medications pancrelipase, Qcs-Ivzr-Msyp, (PANCREAZE) 36797 units capsule Take 3 capsules by mouth [...] Comments Blood Pressure 139/77 05/05/2020 8:25 AM CONTRACT AGENT Pulse 93 05/05/2020 8:25 AM CONTRACT AGENT Temperature 36.2 C (97.1 F) 05/05/2020 8:25 AM CONTRACT AGENT Respiratory Rate 18 05/05/2020 8:25 AM CONTRACT AGENT Oxygen Saturation 97% 05/05/2020 8:25 AM CONTRACT AGENT Inhaled Oxygen Concentration - - Weight 78.2 kg (172 lb 6.4 oz) 05/01/2020 6:56 A M CONTRACT AGENT Height 188 cm (6' 2) 04/24/2020 5:13 PM CONTRACT AGENT Body Mass Index 22.13 04/24/2020 5:13 PM CONTRACT AGENT Plan of Treatment Health Maintenance Due Date [...]
--- OUTSIDE RECORDS SUMMARY | 2025-01-30 15:28 | XMS_ITS | Clinical Summary ---
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
--- OUTSIDE RECORDS SUMMARY | 2025-01-30 15:28 | XMS_ITS | Encounter Summary ---
Author Organization [facility] Address 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
--- OUTSIDE RECORDS SUMMARY | 2025-01-30 15:28 | XMS_ITS | Encounter Summary ---
Author Organization [facility] Address [address] [place] [address] Care Team Providers Care Desk Interviewer Name Role Phone Maxim Martínez MD Primary Care Provider Encounter Details Date Type Department Care Team (Late st Contact Info) Description 02/05/2003 Outpatient Historical HIS MRI DEPT Jason Goode MD [address] [place] [address] [place] [address] MELENA, BLOOD IN STOOL (Primary Dx) Social History Tobacco Use Types Packs/Day Years Used Date Smoking Tobacco: Never Assessed Sex and Gender Information Value Date Recorded Sex Assigned at Not on file Legal Sex Male 5:21 AM AS400 PROGRAMMER Gender Identity Not on file Sexual Orientation [...] documented as of this encounter Care Teams Desk Interviewer Relationship Specialty Start Date End Date Maxim Martínez MD PCP - General 01/14/18 documented as of this encounter
--- OUTSIDE RECORDS SUMMARY | 2025-01-30 15:28 | XMS_ITS | Clinical Summary ---
Author Organization [facility] Address [address] [facility] [place] [address] Care Team Providers Care Solar Energy Systems Designer Name Role Phone Betzy Montana MD Unavailable [phone] Dora Peraza MD Unavailable [phone] Gabriel Camarena MD Unavailable [phone] Wyatt Ang MD Unavailable [phone] Skyler Noriega DPM Unavailable [phone] Selwyn Acharya MD Unavailable Unavailable Shemar Lawler MD Unavailable [phone] Nelda Grove MD Unavailable [phone] Afsaneh Kang FELT WASHING MACHINE TENDER-REGIONAL ACCOUNT MANAGER Unavailable Joshua Coats MD Primary Care Provider [phone] Source Comments [facility],non-owned Affiliates and Associated Physician Practices is amultiple site organization consisting of ambulatory clinics and hospital sitesin [place], [place], [place] and [place]. This disclosure is being madepursuant to the Care Everywhere program and may not contain all information available regarding this patient. Last updated 18.[facility] Allergies Active Allergy Reactions Criticality Noted Date [...] 9 mL 5 10/05/19 23 Active Pancreaze 09483-80193 units capsule TAKE 3 CAPSULES BY MOUTH [...] MCG/ACT nasal sprayIndication s:Eustachian tube disorder, bilateral Slaughter 2 (two) sprays into each nostril once [...] (05/07/2023): 07/2022 right knee x-rays with advanced [id number] medial compartment joint space narrowing. May not [...] Seizure 12/28/2021 Overview (12/28/2021): 10/06/21 Heena Yadav, FELT WASHING MACHINE TENDER-REGIONAL ACCOUNT MANAGER Nurse Practitioner Family Bilateral non-palpable testicles [...] (nonsustained ventricular tachycardia) 12/11 Overview (12/21/2020): 08/09/2020 [facility] Janine Awad Pradeep, MD Parkinsonism, unspecified Parkinsonism type 12/11 Overview (12/21/2020): 11/07/2019 [facility] Lindsay Awad Danuta M, MD [...] Department Care Team Description 01/27/2025 Patient Outreach [facility] - Care Coordination [address] [...] Recorded Patient Health Questionnaire-2 Score 0 02/04/2024 [facility] [place] of Occupat ional Health - Occupational Stress [...] on file Legal Sex Male 1:20 PM TRANSPORT COMPANY MANAGER Gender Identity Not on file Sexual [...] cardio cruiser. Medical Devices Implanted Type Area Medical Coding Instructor Device Identifier Shelf Expiration Date Model / Serial / Lot Ent Kit Implanted:Qty : 1 on 09/23/2020 by Nelda Grove MD at [facility] Right: Abdomen 01/07/2023 [id number] / / [id number] Oclr Cv 24mm Dlv Sys Watchman Flx Strl Implanted:Qty : 1 on 02/28/2022 by Jeffrey Camarena MD at [facility] [employer] [id number] 10/29/2024 [id number] / NA / [id number] Explanted Type Area Medical Coding Instructor Device Identifier Shelf Expiration Date Model / Serial / Lot Oclr Cv 20mm Dlv Sys Watchman Flx Strl Explanted:Qty: 1 on 02/28/2022 at [facility] [employer] [id number] 08/22/2024 [id number] / NA / [id number] Procedures Procedure Name Priority Date/Time Associated Diagnosis [...] [facility] Creatinine POCT 200 [facility] Microalbumin/Crea tinine Ratio <30 [facility] Urine URINE / Unknown 02/04/2024 2 :30 PM CDT Afsaneh Kang FELT WASHING MACHINE TENDER-REGIONAL ACCOUNT MANAGER LAB - POINT OF CA RE ORDERABLES Final Result [facility] [address] [phone] * (ABNORMAL) COMPREHENSIVE METABOLIC PANEL (01/31/2024 11:32 [...] 6:15 AM CDT Performed at: 01 - [facility] [address] [place], [place] [id number] Executive Administrative Assistant: Dae Freeman PhD, Phone: [phone] us Timi Weinberg MD LAB - CHEMISTRY ORDERABLES Final Result [facility] INSURANCE BILL [address] [place] [address] * HEMOGLOBIN A1C - POINT OF CARE (HgbA1C) (08/19/2023 1:30 PM CDT) Hemoglobin A1c POCT 7.0 % [facility] FM Expiration Date 11/08/23 [facility] Lot # [id number] [facility] QC Verified Yes Yes [facility] FM Blood BLOOD SPECIMEN / Unknown 08/19/2023 1:30 PM CDT us Afsaneh Kang FELT WASHING MACHINE TENDER-REGIONAL ACCOUNT MANAGER LAB - POINT OF CA RE ORDERABLES Final Result [facility] [address] [phone] * DIABETES EYE EXAM (11/25/2020) us Scanned [...] Resulting Agency Comment Lab Testing performed at: [facility] [address] [facility] [id number] us Eboni Watkins FELT WASHING MACHINE TENDER-REGIONAL ACCOUNT MANAGER LAB - CHEMISTRY ORD ERABLES Final Result [facility] INSURANCE BILL [address] [place] [address] * COLONOSCOPY (12/16/2012) 12/16/2012 Narrative 12/16/2012 Ordered by an unspecified provider. us Scanned Document SCANNING ONLY Final Result from Last 3 Months or Most Recently Relevant to Health [place] [address] [facility] MEDICARE [facility] [place] [address] Advance Directives * Full Code (Latest Code [...] 11:16 AM 03/01/2022 3:37 PM Care Teams Solar Energy Systems Designer Relationship Specialty Start Date End Date Afsaneh Kang, FELT WASHING MACHINE TENDER-REGIONAL ACCOUNT MANAGER [address] [place] [address] PCP - Attributed-MSSP 01/12/24 Joshua Coats MD [address] [place] [address] PCP - General Family Medicine 01/27/25 Betzy Montana MD [address] [facility] [address] [place] [address] Rheumatology 11/24/19 [place] [address] [place], [place] [id number] Orthopedic Surgery 03/14/20 Gabriel Camarena MD [address] [place] [id number] Cardiovascular Disease 08/04/20 Wyatt Ang MD [address] [facility] [address] [place] [id number] Cardiology 08/04/20 Skyler Noriega DPM [address] [place] [address] Podiatry 08/16/20 Selwyn Acharya MD [address] [place] [address] Endocrinology 08/16/20 Shemar Lawler MD [address] [facility] [address] [place] [address] Physician Gastroenterology 11/09/20 Nelda Grove MD [facility] [place] [place] [address] Physician Urology 01/06/21
--- OUTSIDE RECORDS SUMMARY | 2025-01-30 15:28 | XMS_ITS | Encounter Summary ---
Author Organization [facility] Address [address] [place] [address] Care Team Providers Care C++ Professor Name Role Phone Maxim Martínez MD Primary Care Provider Encounter Details Date Type Department Care Team (Late st Contact Info) Description 02/26/2003 Outpatient Historical [facility] GI LAB Jason Goode MD [address] [place] [address] [place] [address] HEMORRHOIDS NOS (Primary Dx) Social History Tobacco Use Types Packs/Day Years Used Date Smoking Tobacco: Never Assessed Sex and Gender Information Value Date Recorded Sex Assigned at Not on file Legal Sex Male 5:21 AM COPY CENTER OPERATOR Gender Identity Not on file Sexual [...] documented as of this encounter Care Teams C++ Professor Relationship Specialty Start Date End Date Maxim Martínez MD PCP - General 01/14/18 documented as of this encounter
--- OUTSIDE RECORDS SUMMARY | 2025-01-30 15:28 | XMS_ITS | Encounter Summary ---
Author Organization [facility] Address [address] [place] [address] Care Team Providers Care Care Trainer Name Role Phone Maxim Martínez MD Primary Care Provider Encounter Details Date Type Department Care Team (Latest Contact Info) Description 01/28/2003 Outpatient Historical HIS [facility] YOLANDA Goode, Jason Colon MD [address] [place] [address] MELENA, BLOOD IN STOOL (Primary Dx) Social History Tobacco Use Types Packs/Day Years Used Date Smoking Tobacco: Never Assessed Sex and Gender Information Value Date Recorded Sex Assigned at Not on file Legal Sex Male 5:21 AM BUSINESS PROCESS EXPERT Gender Identity Not on file Sexual Orientation [...] documented as of this encounter Care Teams Care Trainer Relationship Specialty Start Date End Date Maxim Martínez MD PCP - General 01/14/18 documented as of this encounter
--- OUTSIDE RECORDS SUMMARY | 2025-01-30 15:28 | XMS_ITS | Encounter Summary ---
Author Organization [facility] Address [address] [place] [address] Care Team Providers Care Reference Services Head Name Role Phone Maxim Martínez MD Primary Care Provider Encounter Details Date Type Department Care Team (Late st Contact Info) Description 03/19/2003 Outpatient Historical HIS IMG-HOSP Jason Goode MD [address] [place] [address] [place] [address] MELENA, BLOOD IN STOOL (Primary Dx) Social History Tobacco Use Types Packs/Day Years Used Date Smoking Tobacco: Never Assessed Sex and Gender Information Value Date Recorded Sex Assigned at Not on file Legal Sex Male 5:21 AM MORTARMAN Gender Identity Not on file Sexual Orientation [...] documented as of this encounter Care Teams Reference Services Head Relationship Specialty Start Date End Date Maxim Martínez MD PCP - General 01/14/18 documented as of this encounter
--- OUTSIDE RECORDS SUMMARY | 2025-01-30 15:28 | XMS_ITS | Clinical Summary ---
Author Organization [facility] Address [facility] [place] [address] Care Team Providers Care Manager Managed Care Name Role Phone Shemar Hassan MD Primary Care Provider Allergies Active Allergy Reactions Criticality Noted Date [...] times daily with meals. 2 Active pancrelipase, Baz-Oyoe-Gerx, (PANCREAZE) 87990-11002 units CAPSULE ENTERIC COATED PARTICLES capsule Take [...] Noted Date Diagnosed Date COVID-19 12/30/2022 Sepsis ([facility]) 12/28/2022 Family History Medical History Relation Comments [...] place to sleep or slept in a retirement (including now)? No 12/28/2022 Sex and Gender [...] age to complete this topic Insurance [address] [place], [place] [address] MEDICARE [facility] HUMAN [employer] Advance Directives * Full Code (Latest Code Status on File) Date Activated Date Inactivated Comments 12/28/2022 4:47 PM 01/01/2023 7:48 PM Care Teams Manager Managed Care Relationship Specialty [place] [address] [address] PCP - General FAMILY PRACTICE 02/13/22
--- OUTSIDE RECORDS SUMMARY | 2025-01-30 15:28 | XMS_ITS | Encounter Summary ---
Author Organization [employer] Address 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 Gender Identity Not on file Sexual Orientation [...] INTERFACE SYSTEM Comment: Lab test performed by: [facility] [address] [place] [address] [address] BANG CHRIS MD 08/30/2006 11:4 4 AM CDT us Preston Patel MD CHEMISTRY ORDERABLES Edited Performing Organization Address [facility] Phone Number INTERFACE SYSTEM Refer to clinic/hospital department * HEPATITIS B SURFACE ANTIGEN (08/30/2006 11:44 AM CDT) HEPATITIS B SURFACE AG NON-REACTI VE NON-REACT AMISH INTERFACE SYSTEM Comment: Lab test performed by: [facility] [address] [place] [address] DR BANG CHRIS MD 08/30/2006 11:4 4 AM CDT us Preston Patel MD CHEMISTRY ORDERABLES Edited Performing Organization Address [facility] Phone Number INTERFACE SYSTEM Refer to clinic/hospital department * HIV RAPID SCREEN (08/30/2006 11:44 AM CDT) RAPID HIV SCREEN Nonreactive Nonreactive INTERFACE SYSTEM Comment:Results called to Zachary keene at 08/30/2006 12:04 PM and read back verified. 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
--- OUTSIDE RECORDS SUMMARY | 2025-01-30 15:28 | XMS_ITS | Encounter Summary ---
Author Organization [facility] Address 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
[2025-01-30 15:49] LABS: Hematocrit 38.8 % (42.0-52.0); Hemoglobin 12.6 g/dL (14.0-18.0); Immature Granulocyte Percent A 0.3 % (0-0.5); Lymphocytes Absolute Auto 1.56 K/mm3 (0.9-3.2); Mean Corpuscular HGB Conc 32.5 g/dl (32-36); Mean Corpuscular Hemoglobin 28.5 pg (26-34); Mean Corpuscular Volume 87.8 fl (80-100); Nucleated Red Blood Cells Absolute Auto 0.000 K/mm3 (0.0-0.012); Nucleated Red Blood Cells Perc 0.0 % (0.0-0.2); Platelet Count Result 237 k/mm3 (150-375); Red Blood Count 4.42 M/mm3 (4.6-6.20); White Blood Count 5.9 K/mm3 (4.5-10.0)
--- NOTE | 2025-01-30 16:25 | ED_ITS ---
HPI - General Adult General Chief complaint: Abdominal Pain Stated complaint: abd pain, diarrhea Time Seen by Provider: 01/30/25 15:13 History of Present Illness HPI narrative: 74-year-old male presents to the emergency department for evaluation for increased generalized weakness and lower abdominal pain. Patient does have a recent history of a urinary tract infection and hospitalization. Patient states over the past 2 days he has had worsening abdominal pain. 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 Patient also has difficulty closing his right eye he states this is secondary to a previous eye surgery and this is also not new. Denies any focal numbness weakness of his arms or legs. Related Data Home Medications ?Medication ?Instructions ?Recorded ?Confirmed ?Last Taken ?Type aspirin 81 mg chewable tablet 81 mg PO Q48H 01/01/23 0 01/19/25 01/19/25 History (Aspirin Childrens) Allergies Allergy/AdvReac Type Severity Reaction Status Date / Time peanut Allergy Intermediate Swelling Verified 01/30/25 17:21 aspirin Allergy Unknown aggravates Verified 01/30/25 17:21 stomach banana Allergy Unknown Not Verified 01/30/25 17:21 Entered,Itching latex Allergy Unknown Not Verified 01/30/25 17:21 Entered,Itching Penicillins Allergy Unknown Not Verified 01/30/25 17:21 Entered, strawberry Allergy Unknown Unknown Verified 01/30/25 17:21 Sulfa (Sulfonamide Allergy Unknown Not Verified 01/30/25 17:21 Antibiotics) Entered, celecoxib (From Celebrex) Allergy Swelling Verified 01/30/25 17:21 infliximab (From Remicade) Allergy Unknown Verified 01/30/25 17:21 meloxicam (From Mobic) Allergy Itching Verified 01/30/25 17:21 metoclopramide Allergy Unknown Verified 01/30/25 17:21 lisinopril AdvReac Swelling Verified 01/30/25 17:21 Review of Systems 2 Review of Systems: All systems reviewed & are unremarkable except as noted in HPI and below PMFSH Past Medical History Medical History (Updated 01/30/25 @ 19:00 by Jasvir Garcia MD) Hiccups Left-sided weakness Seizure after head injury Pancreatic insufficiency Hypertension Hyperlipidemia Diabetes mellitus BPH (benign prostatic hyperplasia) Atrial fibrillation Family History Family History Father Lung disease Mother Heart attack Social History Social History Smoking status: Never smoker Second hand tobacco smoke exposure: No Alcohol intake: never Substance use: never Substance use type: does not use Lack of Transportation: No Lack of Food: Never True Current Housing: I Have Housing Concerned About Future Housing: No Difficulty Paying Gas/Electric Bills: No Difficulty Paying for Meds: No Currently Unemployed: No Education: Don't Know Difficulty w/ Childcare or Family Care: No Spiritual care concerns: No Exam 2 Narrative: APPEARANCE: Fatigued-appearing HEAD: normocephalic, atraumatic. EYES: PERRLA/EOMI, conjunctivae clear. NOSE: Normal no drainage EARS:TMS clear with good light reflex. THROAT: Pharynx clear, no exudate. NECK: Supple. No adenopathy, no masses. RESPIRATORY: Airway patent, respirations nonlabored. Clear to auscultation bilaterally, no rales, rhonchi, wheezing. CARDIOVASCULAR: Regular rate and rhythm without murmurs rubs or gallops. ABDOMINAL: Lower abdominal tenderness to palpation MUSCULOSKELETAL: Moves all extremities. Strength/ROM intact, No edema, No calf tenderness. NEURO: Alert. Cranial nerves II through XII intact. Good gait. Good coordination SKIN: Warm, dry. Normal Color Course Vital Signs Vital signs: Vital Signs Temperature 97.4 F L 01/30/25 12:05 Pulse Rate 53 L 01/30/25 12:05 Respiratory Rate 18 01/30/25 12:05 Blood Pressure 141/73 H 01/30/25 12:05 Pulse Oximetry 100 01/30/25 12:05 Oxygen Delivery Room Air 01/30/25 12:05 Temperature 97.4 F L 01/30/25 12:05 Pulse Rate 57 L 01/30/25 18:41 Respiratory Rate 18 01/30/25 18:41 Blood Pressure 162/82 H 01/30/25 18:41 Pulse Oximetry 100 01/30/25 18:41 Oxygen Delivery Room Air 01/30/25 12:05 Medical Decision Making MDM Narrative Medical decision making narrative: 74-year-old male presents emergency department for evaluation for lower abdominal pain, diarrhea and increased generalized weakness. Patient did not make any stool samples while in the emergency department. Patient is afebrile with no leukocytosis hemoglobin of 12.6. No acute abnormalities on the CMP lipase is negative. No urinary tract infection on the urinary analysis. Patient was negative for influenza RSV and for COVID. CT abdomen pelvis was negative for acute pathology. On re-evaluation after treatment with a L of lactated Ringer's patient states he still feels fatigued and patient states he does not feel is able to take care for self at home. Patient typically lives with his his is out of town and patient does not feel he is safe to go home. Case was discussed with hospitalist and patient was admitted for generalized weakness and failure to thrive. Differential Diagnosis Differential Diagnosis: COVID, RSV, influenza, UTI, colitis, diverticulitis, C diff pneumonia Vital Signs Vital Signs: Vital Signs Temperature 97.4 F L 01/30/25 12:05 Pulse Rate 53 L 01/30/25 12:05 Respiratory Rate 18 01/30/25 12:05 Blood Pressure 141/73 H 01/30/25 12:05 Pulse Oximetry 100 01/30/25 12:05 Oxygen Delivery Room Air 01/30/25 12:05 Temperature 97.4 F L 01/30/25 12:05 Pulse Rate 57 L 01/30/25 18:41 Respiratory Rate 18 01/30/25 18:41 Blood Pressure 162/82 H 01/30/25 18:41 Pulse Oximetry 100 01/30/25 18:41 Oxygen Delivery Room Air 01/30/25 12:05 Lab Data Lab results reviewed: Yes I reviewed the patient's lab results. 01/30/25 15:43 01/30/25 16:23 Labs: Lab Results 01/30/25 01/30/25 01/30/25 Range/Units 15:43 16:23 16:32 WBC 5.9 (4.5-10.0) K/mm3 RBC 4.42 L (4.6-6.20) M/mm3 Hgb 12.6 L (14.0-18.0) g/dL Hct 38.8 L (42.0-52.0) % MCV 87.8 (80-100) fl MCH 28.5 (26-34) pg MCHC 32.5 (32-36) g/dl RDW 14.7 H (11.5-14.5) % Plt Count 237 (150-375) k/mm3 MPV 8.8 (7.4-10.4) fl Immature Gran % (Auto) 0.3 (0-0.5) % Neut % (Auto) 62.7 (45.5-73.1) % Lymph % (Auto) 26.4 (18.3-44.2) % [place] % (Auto) 8.6 H (2.6-8.5) % Eos % (Auto) 1.5 (0-4.4) % Baso % (Auto) 0.5 (0.2-1.2) % Lymph # (Auto) 1.56 (0.9-3.2) K/mm3 [place] # (Auto) 0.5 (0.1-0.6) K/mm3 Eos # (Auto) 0.1 (0-0.3) K/mm3 Baso # (Auto) 0.0 (0.0-0.1) K/mm3 Abs Immat Gran (auto) 0.02 (0.00-0.031) K/mm3 Absolute Neuts (auto) 3.7 (1.3-6.7) K/mm3 Absolute Nucleated RBC 0.000 (0.0-0.012) K/mm3 Nucleated RBC % 0.0 (0.0-0.2) % Sodium 140 (137-145) mmol/L Potassium 4.1 (3.4-5.0) mmol/L Chloride 103 (98-107) mmol/L Carbon Dioxide 28 (22-30) mmol/L Anion Gap 9 (4-12) mmol/L BUN 10 (9-20) mg/dL Creatinine 1.00 (0.7-1.3) mg/dL Estim Creat Clear Calc 57 ml/min Estimated GFR > 60 (59 - ) Glucose 90 (65-110) mg/dL Calcium 9.4 (8.4-10.2) mg/dL Total Bilirubin 1.3 (0.2-1.3) mg/dL AST 37 (17-59) U/L ALT 43 (6-50) U/L Alkaline Phosphatase 85 (38-126) U/L Total Protein 8.3 H (6.3-8.2) g/dL Albumin 4.0 (3.5-5.1) g/dL Lipase 53 (23-300) U/L Urine Color Yellow (Yellow) Urine Appearance Clear (Clear) Urine pH 6.5 (5.0-9.0) Ur Specific [place] 1.018 (1.001-1.035) Urine Protein Trace (Negative) mg/dL Urine Glucose (UA) Negative (Negative) mg/dL Urine Ketones Trace H (Negative) mg/dL Ur Blood (Man) Negative (Negative) Urine Nitrate Negative (Negative) Urine Bilirubin Negative (Negative) Urine Urobilinogen 1.0 (<2.0) mg/dL Leukocyte Esterase Rfl Negative (Negative) HINA/UL Urine RBC 0-2 (0-2) /hpf Urine WBC 0-5 (0-3) /hpf Ur Squamous Epith Cells None seen (Few) /hpf Urine Bacteria None seen /hpf Urine Casts 0-2 Imaging Data Radiologist's impression: Impressions Abdomen/Pelvis CT 01/30/25 17:21 IMPRESSION: No acute intra-abdominal process. Discharge Plan Discharge Clinical Impression: Adult failure to thrive, Generalized weakness, Diarrhea, Abdominal pain Patient Disposition: Still a Patient Condition: Stable
[2025-01-30] MEDS: LACTATED RINGERS 1,000 ML 999 ML IV CONT (16:27)
[2025-01-30 16:40] LABS: Alanine Aminotransferase 43 U/L (6-50); Albumin Level 4.0 g/dL (3.5-5.1); Alkaline Phosphatase 85 U/L (38-126); Anion Gap 9 mmol/L (4-12); Aspartate Amino Transferase 37 U/L (17-59); Bilirubin,Total 1.3 mg/dL (0.2-1.3); Blood Urea Nitrogen 10 mg/dL (9-20); Calcium 9.4 mg/dL (8.4-10.2); Carbon Dioxide 28 mmol/L (22-30); Chloride 103 mmol/L (98-107); Estimated CRCL calculation 57 ml/min; Estimated Glomerular Filt Rate > 60; Glucose 90 mg/dL (65-110); Lipase 53 U/L (23-300); Potassium 4.1 mmol/L (3.4-5.0); Sodium 140 mmol/L (137-145); Total Protein 8.3 g/dL (6.3-8.2)
[2025-01-30 16:42] LABS: Add Urine Microscopic? YES; Appearance Urine Clear (Clear); Glucose Urine UA Negative (Negative); Leukocyte Esterase Ur Negative LEU/UL (Negative); Nitrate Urine Negative (Negative); Non Pathogenic Casts 0-2; Specific Grav Ur 1.018 (1.001-1.035)
[2025-01-30 18:38] LABS: Influenza A QL RT-PCR Negative (Negative); Influenza B QL RT-PCR Negative (Negative); RSV RNA, RT-PCR Negative (Negative); SARS-CoV-2 RNA PCR Negative (Negative)
--- NOTE | 2025-01-30 18:56 | ADMGEN ---
This patient, Jesse Hunter, was admitted to [facility] Surg Room 329-01. Patient/family oriented to hospital policies and general routines including ID bracelet, bed and alarms, visiting hours, pain management, procedures, bathroom and other care routines, personal items, smoking policy, room service/diet, and visiting hours. Information on how to activate the Rapid Response Team has been discussed. Patient/Family are encouraged to report perceived risks to care and to ask questions if they do not understand what they are told or what they should do.
--- NOTE | 2025-01-30 20:23 | P.HP_ITS ---
H&P: HPI History of Present Illness Date/Time: 01/30/25 20:23 Chief Complaint: Abdominal pain and diarrhea Narrative: 74-year-old male history of hypertension, hyperlipidemia, diabetes, BPH, atrial fibrillation and Mares's palsy with right-sided facial droop presents the hospital with abdominal pain and diarrhea. Patient states they had a recent UTI and was hospitalized for that. He states that his abdominal pain started about 2 days ago and is progressively got worse. He feels extremely weak. Patient states he generally walk with a walker however today he could not. He states that he was too weak to walk. The patient denies nausea, vomiting, fever or chills. He states that he is hungry and would like tabs fluid. He states that he has not had diarrhea since he has been in the hospital. Patient's hemoglobin is 12.6, BMP is within normal limits, UA is negative for infection. Influenza A/B, RSV, COVID negative. CT abdomen shows no acute process. Patient being admitted for dehydration and weakness. Stool culture pending. Review of Systems Review of Systems: 12 systems were reviewed and are negativ e except for as per HPI. [facility] Past Medical History Medical History (Updated 01/30/25 @ 19:00 by Jasvir Garcia MD) Hiccups Left-sided weakness Seizure after head injury Pancreatic insufficiency Hypertension Hyperlipidemia Diabetes mellitus BPH (benign prostatic hyperplasia) Atrial fibrillation Family History Family History Father Lung disease Mother Heart attack Social History Social History Smoking status: Never smoker Second hand tobacco smoke exposure: No Alcohol intake: never Substance use: never Substance use type: does not use Lack of Transportation: No Lack of Food: Never True Current Housing: I Have Housing Concerned About Future Housing: No Difficulty Paying Gas/Electric Bills: No Difficulty Paying for Meds: No Currently Unemployed: No Education: Don't Know Difficulty w/ Childcare or Family Care: No Spiritual care concerns: No Meds Home Medications and Allergies Home Medications ?Medication ?Instructions ?Recorded ?Confirmed ?Type aspirin 81 mg chewable tablet 81 mg PO Q48H 01/01/23 0 01/30/25 History (Aspirin Childrens) atorvastatin 80 mg tablet 80 mg PO HS #30 tabs 01/25/2 5 01/30/25 Rx bethanechol chloride 10 mg tablet 10 mg PO TID #90 tab s 01/25/25 01/30/25 Rx clopidogrel 75 mg tablet (Plavix) 75 mg PO DAILY #30 t abs 01/25/25 01/30/25 Rx finasteride 5 mg tablet 5 mg PO DAILY #30 tabs 01/2501/30/25 Rx hydroxychloroquine 200 mg tablet 200 mg PO BID #60 tab s 01/25/25 01/30/25 Rx levetiracetam 1,000 mg tablet 1,000 mg PO BID #60 tabs 01/25/25 01/30/25 Rx lidocaine 5 % topical patch 1 patch topical DAILY #30 ea 01/25/25 01/30/25 Rx (DermacinRx Lidocan) lipase 10,500-protease 3 cap PO TID #120 caps 01/2501/30/25 Rx 35,500-amylase 61,500 unit capsule,delayed rel (Pancreaze) pantoprazole 40 mg tablet,delayed 40 mg PO QAM #30 tab s 01/25/25 01/30/25 Rx release polyethylene glycol 3350 17 gram 17 g PO QAM #14 ea 01/30/25 Rx oral powder packet (Miralax) sennosides 8.6 mg-docusate sodium 2 tab PO BID #0 tabs 01/25/25 01/30/25 Rx 50 mg tablet (Senokot-S) sotalol 80 mg tablet 40 mg (1/2 x 80 mg) PO BID 3 0 days 01/25/25 01/30/25 Rx #60 tabs tamsulosin 0.4 mg capsule 0.4 mg PO BID #60 caps 01/2501/30/25 Rx hydrocodone 10 mg-acetaminophen 1 tablet PO Q6H PRN Pa in (Scale 01/26/25 01/30/25 Rx 325 mg tablet Score 7-10) #10 tabs pregabalin 100 mg capsule 100 mg PO QAM #10 caps 01/2601/30/25 Rx pregabalin 100 mg capsule 200 mg (2 x 100 mg) PO HS #2 0 caps 01/26/25 01/30/25 Rx Allergies Allergy/AdvReac Type Severity Reaction Status Date / Time peanut Allergy Intermediate Swelling Verified 01/30/25 22:39 aspirin Allergy Unknown aggravates Verified 01/30/25 22:39 stomach banana Allergy Unknown Not Verified 01/30/25 22:39 Entered,Itching latex Allergy Unknown Not Verified 01/30/25 22:39 Entered,Itching Penicillins Allergy Unknown Not Verified 01/30/25 22:39 Entered, strawberry Allergy Unknown Unknown Verified 01/30/25 22:39 Sulfa (Sulfonamide Allergy Unknown Not Verified 01/30/25 22:39 Antibiotics) Entered, celecoxib (From Celebrex) Allergy Swelling Verified 01/30/25 22:39 infliximab (From Remicade) Allergy Unknown Verified 01/30/25 22:39 meloxicam (From Mobic) Allergy Itching Verified 01/30/25 22:39 metoclopramide Allergy Unknown Verified 01/30/25 22:39 lisinopril AdvReac Swelling Verified 01/30/25 22:39 Vital Signs Vital Signs - 24 hr 01/30/25 12:05 01/30/25 14:30 01/30/25 15:44 Temperature 97.4 F L Pulse Rate 53 L 53 L 57 L Respiratory Rate 18 18 18 Blood Pressure 141/73 H 149/69 H 160/80 H Pulse Oximetry 100 100 100 Oxygen Delivery Room Air 01/30/25 18:41 Temperature Pulse Rate 57 L Respiratory Rate 18 Blood Pressure 162/82 H Pulse Oximetry 100 Oxygen Delivery Exam Narrative: General: well appearing, appears stated age. HEENT: Facial droop an eyelid droop at baseline. Mucous membranes moist. EOMI, PERRLA, bilateral sclera anicteric, no conjunctival injection. Neck supple without JVD, lymphadenopathy, or bruit. Respiratory: clear to ascultation bilaterally. No rales/rhonic/wheezes. Cardiovascular: Regular rate and rhythm, normal S1-S2 upon ascultation. No murmurs, rubs, or clicks. PMI is nondisplaced, capillary refill less than 3 second. Abdomen: Soft, round, no pulsatile masses, nondistended and nontender. No rebound, no guarding. No CVA tenderness, no hepatosplenomegaly. Bowel sounds present to all four quadrants. No high pitch or tinkling sounds, resonant to per cussion. Extremities: No cyanosis, clubbing, or edema present. Pulses are palpable 2/2. Active ROM to all four extremities. Neuro: Alert and orientated x 4. PERRLA. Cranial nerves 2-12 intact without focal deficit. Skin: Warm, dry, and intact, without rash, erythema, or lesion. Psych: pleasant, cooperative, normal speech, normal affect, no hallucinations, no dysarthia H&P: Results Labs Labs: Short CBC 01/30/25 Range/Units 15:43 WBC 5.9 (4.5-10.0) K/mm3 Hgb 12.6 L (14.0-18.0) g/dL Hct 38.8 L (42.0-52.0) % Plt Count 237 (150-375) k/mm3 BMP 01/30/25 16:23 Sodium 140 Potassium 4.1 Chloride 103 Carbon Dioxide 28 BUN 10 Creatinine 1.00 Glucose 90 Calcium 9.4 Liver Function 01/30/25 Range/Units 16:23 Total Bilirubin 1.3 (0.2-1.3) mg/dL AST 37 (17-59) U/L ALT 43 (6-50) U/L Alkaline Phosphatase 85 (38-126) U/L Albumin 4.0 (3.5-5.1) g/dL Urine 01/30/25 Range/Units 16:32 Urine Color Yellow (Yellow) Urine Appearance Clear (Clear) Urine pH 6.5 (5.0-9.0) Ur Specific [place] 1.018 (1.001-1.035) Urine Protein Trace (Negative) mg/dL Urine Glucose (UA) Negative (Negative) mg/dL Assessment and Plan Assessment and plan (1) Diarrhea: Code(s): R19.7 - Diarrhea, unspecified Status: Acute Assessment and Plan: CT abdomen with no acute findings IVF for dehydration A stool sample pending (2) Generalized weakness: Code(s): R53.1 - Weakness Status: Acute Assessment and Plan: Likely related to acute diarrhea PT OT evaluate and treat (3) Hypertension: Code(s): I10 - Essential (primary) hypertension Status: Acute Assessment and Plan: Patient does not appear to be on antihypertensive medications Continue to monitor (4) Atrial fibrillation: Code(s): I48.91 - Unspecified atrial fibrillation Status: Chronic Assessment and Plan: Continue sotalol (5) Hyperlipidemia: Code(s): E78.5 - Hyperlipidemia, unspecified Status: Acute Assessment and Plan: Continue statin (6) BPH (benign prostatic hyperplasia): Code(s): N40.0 - Benign prostatic hyperplasia without lower urinary tract symptoms Status: Acute Assessment and Plan: Continue BPH meds (7) Seizure disorder: Code(s): G40.909 - Epilepsy, unspecified, not intractable, without status epilepticus Status: Acute Assessment and Plan: Continue Keppra Quality VTE Prophylaxis VTE prophylaxis: mechanical ordered and pharmacologic ordered Hospitalist MIPS Advance Care Plan I have confirmed that the patient's Advanced Care Plan is present, code status is documented, or surrogate decision maker is listed in patient medical record.: Yes Medication Reconciliation I have utilized all available resources to obtain, update and review the patients current medications (includes all prescriptions, OTC, herbals, cannabis, and nutritional supplements).: Yes
[2025-01-30] MEDS: SODIUM CHLORIDE 0.9% IV 1,000 ML 100 ML IV CONT (22:25)
[2025-01-31 06:00] VITALS: BP 134/69; PULSE 51; RESP 16; TEMP 36.9; O2SAT 100
[2025-01-31 06:53] LABS: Hematocrit 37.6 % (42.0-52.0); Hemoglobin 12.4 g/dL (14.0-18.0); Immature Granulocyte Percent A 0.2 % (0-0.5); Lymphocytes Absolute Auto 1.38 K/mm3 (0.9-3.2); Mean Corpuscular HGB Conc 33.0 g/dl (32-36); Mean Corpuscular Hemoglobin 28.8 pg (26-34); Mean Corpuscular Volume 87.4 fl (80-100); Nucleated Red Blood Cells Absolute Auto 0.000 K/mm3 (0.0-0.012); Nucleated Red Blood Cells Perc 0.0 % (0.0-0.2); Platelet Count Result 229 k/mm3 (150-375); Red Blood Count 4.30 M/mm3 (4.6-6.20); White Blood Count 4.8 K/mm3 (4.5-10.0)
[2025-01-31 07:21] LABS: Anion Gap 6 mmol/L (4-12); Blood Urea Nitrogen 9 mg/dL (9-20); Calcium 9.2 mg/dL (8.4-10.2); Carbon Dioxide 29 mmol/L (22-30); Chloride 104 mmol/L (98-107); Estimated CRCL calculation 60 ml/min; Estimated Glomerular Filt Rate > 60; Glucose 102 mg/dL (65-110); Potassium 3.5 mmol/L (3.4-5.0); Sodium 139 mmol/L (137-145)
--- NOTE | 2025-01-31 08:03 | P.PNIM_ITS ---
Progress Note: A&P Assessment and Plan (1) Diarrhea: Code(s): R19.7 - Diarrhea, unspecified Status: Acute Assessment and Plan: - recent antibiotic use in setting of UTI - CT abdomen with no acute findings - received IV fluids - patient has not had a bowel movement since admission. - stool PCR and C diff ordered (2) Generalized weakness: Code(s): R53.1 - Weakness Status: Acute Assessment and Plan: -Likely related to acute diarrhea and dehydration -PT OT evaluated and recommended home (3) Atrial fibrillation: Code(s): I48.91 - Unspecified atrial fibrillation Status: Chronic Assessment and Plan: - s/p Watchman -Continue sotalol. (4) Hyperlipidemia: Code(s): E78.5 - Hyperlipidemia, unspecified Status: Acute Assessment and Plan: -Continue statin. (5) BPH (benign prostatic hyperplasia): Code(s): N40.0 - Benign prostatic hyperplasia without lower urinary tract symptoms Status: Acute Assessment and Plan: -Continue Flomax, finasteride (6) Seizure disorder: Code(s): G40.909 - Epilepsy, unspecified, not intractable, without status epilepticus Status: Acute Assessment and Plan: -Continue Keppra (7) CVA (cerebral vascular accident): Code(s): I63.9 - Cerebral infarction, unspecified Status: Chronic Assessment and Plan: - continue ASA, Plavix Plan Dispo: likely home tomorrow if continues to improve. Patient has a caregiver M- F. Patient's is in a wheelchair and can provide minimal assistance on the weekends so discharge tomorrow will be safer. Subjective Date/time seen: 01/31/25 08:03 Interval history: Patient seen and examined up in chair. Denied further diarrhea. Having minimal abdominal pain. Review of Systems Review of Systems: 12 systems were reviewed and are negativ e except for as per HPI. Exam Narrative: General: NAD Eyes: EOMI ENT: neck supple Cardiovascular: Regular rate and rhythm Respiratory: Clear to auscultation, respirations even and unlabored on RA Gastrointestinal: Soft, non tender Genitourinary: no suprapubic tenderness Musculoskeletal: No edema Skin: warm, dry Neuro: Alert. Psych: Mood appropriate Objective Data Vital Signs Vital Signs: Vital Signs - 24 hr 01/30/25 12:05 01/30/25 14:30 01/30/25 15:44 Temperature 97.4 F L Pulse Rate 53 L 53 L 57 L Respiratory Rate 18 18 18 Blood Pressure 141/73 H 149/69 H 160/80 H Pulse Oximetry 100 100 100 Oxygen Delivery Room Air 01/30/25 18:41 01/30/25 20:00 01/30/25 22:00 Temperature 97.8 F Pulse Rate 57 L 73 58 L Respiratory Rate 18 16 16 Blood Pressure 162/82 H 160/69 H Pulse Oximetry 100 100 100 Oxygen Delivery Room Air 01/30/25 22:13 01/30/25 22:30 01/30/25 22:31 Temperature 97.8 F 97.8 F Pulse Rate 54 L 65 Respiratory Rate 16 16 Blood Pressure 138/72 138/65 Pulse Oximetry 100 100 100 Oxygen Delivery Room Air 01/30/25 22:31 01/31/25 06:00 Temperature 97.8 F 98.5 F Pulse Rate 73 51 L Respiratory Rate 16 16 Blood Pressure 150/69 H 134/69 Pulse Oximetry 100 100 Oxygen Delivery Intake/Output Intake/Output: Intake & Output 01/28/25 01/29/25 01/30/25 01/31/25 23:59 23:59 23:59 23:59 Intake Total 1000 50 Output Total 500 Balance 500 50 Meds/Results Medications: Active Medications Generic Name Dose Route Start Last Admin Trade Name Freq PRN Reason Stop Dose Admin Acetaminophen 650 mg 01/30/25 20:29 Acetaminophen 325 Mg Tablet PO Q4H PRN Mild Pain (1-3) or Fever Hydrocodone Bitart/Acetaminophen 1 tab 01/30/25 21:15 Hydrocodone/Acetaminophen (*Crx) 10-325 Mg Tablet PO Q6H PRN Pain (Scale Score 7-10) Aspirin 81 mg 01/30/25 21:15 Aspirin 81 Mg Chewable Tablet PO Q48H [facility] Atorvastatin Calcium 80 mg 01/31/25 21:00 Atorvastatin 40 Mg Tablet PO HS [facility] Bethanechol Chloride 10 mg 01/31/25 09:00 Bethanechol Chloride 10 Mg Tablet PO TID SERENA Clopidogrel Bisulfate 75 mg 01/31/25 09:00 Clopidogrel Bisulfate 75 Mg Tablet PO DAILY SERENA Dextrose 12.5 gm 01/30/25 20:34 Dextrose 50% 25 Gm/50 Ml Syringe IV PUSH PRN PRN Hypoglycemia Protocol Enoxaparin Sodium 40 mg 01/31/25 09:00 Enoxaparin 40 Mg/0.4 Ml Syringe SUB-Q DAILY SERENA Finasteride 5 mg 01/31/25 09:00 Finasteride 5 Mg Tablet PO DAILY SERENA Glucagon 1 mg 01/30/25 20:34 Glucagon For Inj 1 Mg Vial IM PRN PRN Hypoglycemia Protocol Glucose 15 gm 01/30/25 20:34 Glucose Oral Gel 15 Gm Of Glucse In 37.5 Gm Tube PO PRN PRN Hypoglycemia Protocol Sodium Chloride 1,000 mls @ 100 mls/hr 01/30/25 20:30 01/30/25 22:25 Normal Saline Iv IV CONT 100 mls/hr .Q10H SERENA Administration Dextrose 1,000 mls @ 100 mls/hr 01/30/25 20:34 Dextrose 5% 1,000 Ml IVPB PRN PRN Hypoglycemia Protocol Insulin Aspart 2 - 5 units 01/31/25 08:00 Insulin Aspart (*Bkc) 100 Units/Ml SUB-Q TIDWM [facility] Protocol Levetiracetam 1,000 mg 01/31/25 09:00 Levetiracetam 500 Mg Tablet PO Q12HR [facility] Lidocaine 1 patch 01/31/25 09:00 Lidocaine 5% Patch TOPICAL DAILY [facility] Miscellaneous Information 0 each 01/30/25 00:01 Aspirin Q48h When Is Next Dose Due? XX 03/01/25 00:00 CLARIFY [facility] Miscellaneous Information 0 each 01/30/25 00:01 Lidocaine Patch Add Site Of Use XX 03/01/25 00:00 CLARIFY [facility] Miscellaneous Information 0 each 01/30/25 00:01 Nonformulary Drug (Khguxp-[id number] [Pancreaze] 10,500-35,500- 61,500 Unit Capsule XX 03/01/25 00:00 CLARIFY [facility] Non-Formulary Medication 3 cap 01/31/25 09:00 Zhmuqv-Atwehdvg-Qtzeqga [Pancreaze] PO 03/02/25 08:59 TID [facility] Pantoprazole Sodium 40 mg 01/31/25 09:00 Pantoprazole 40 Mg Tablet PO QAM [facility] Polyethylene Glycol 17 gm 01/31/25 09:00 Polyethylene Glycol 3350 17 Gm Powd.Pack PO QAM [facility] Pregabalin 100 mg 01/31/25 09:00 Pregabalin (*Crx) 50 Mg Capsule PO QAM [facility] Pregabalin 200 mg 01/31/25 21:00 Pregabalin (*Crx) 50 Mg Capsule PO HS [facility] Senna/Docusate Sodium 2 tab 01/31/25 09:00 Senna/Docusate Sodium Tablet PO BID [facility] Sotalol HCl 40 mg 01/31/25 09:00 Sotalol Hcl 40 Mg Tablet PO Q12HR [facility] Tamsulosin HCl 0.4 mg 01/31/25 09:00 Tamsulosin Hcl 0.4 Mg Capsule PO Q12HR [facility] Radiology Results: ITS Impressions Abdomen/Pelvis CT 01/30/25 17:21 IMPRESSION: No acute intra-abdominal process. Labs Labs: Laboratory Results - last 24 hr 01/30/25 01/30/25 01/30/25 15:43 16:23 16:32 WBC 5.9 RBC 4.42 L Hgb 12.6 L Hct 38.8 L MCV 87.8 MCH 28.5 MCHC 32.5 RDW 14.7 H Plt Count 237 MPV 8.8 Immature Gran % (Auto) 0.3 Neut % (Auto) 62.7 Lymph % (Auto) 26.4 [place] % (Auto) 8.6 H Eos % (Auto) 1.5 Baso % (Auto) 0.5 Lymph # (Auto) 1.56 [place] # (Auto) 0.5 Eos # (Auto) 0.1 Baso # (Auto) 0.0 Abs Immat Gran (auto) 0.02 Absolute Neuts (auto) 3.7 Absolute Nucleated RBC 0.000 Nucleated RBC % 0.0 Sodium 140 Potassium 4.1 Chloride 103 Carbon Dioxide 28 Anion Gap 9 BUN 10 Creatinine 1.00 Estim Creat Clear Calc 57 Estimated GFR > 60 Glucose 90 POC Capillary Glucose Calcium 9.4 Total Bilirubin 1.3 AST 37 ALT 43 Alkaline Phosphatase 85 Total Protein 8.3 H Albumin 4.0 Lipase 53 Urine Color Yellow Urine Appearance Clear Urine pH 6.5 Ur Specific [place] 1.018 Urine Protein Trace Urine Glucose (UA) Negative Urine Ketones Trace H Ur Blood (Man) Negative Urine Nitrate Negative Urine Bilirubin Negative Urine Urobilinogen 1.0 Leukocyte Esterase Rfl Negative Urine RBC 0-2 Urine WBC 0-5 Ur Squamous Epith Cells None seen Urine Bacteria None seen Urine Casts 0-2 Influenza A (RT-PCR) Influenza B (RT-PCR) RSV (RT-PCR) SARS-CoV-2 RNA (RT-PCR) 01/30/25 01/30/25 01/31/25 17:57 21:26 06:42 WBC 4.8 RBC 4.30 L Hgb 12.4 L Hct 37.6 L MCV 87.4 MCH 28.8 MCHC 33.0 RDW 14.6 H Plt Count 229 MPV 8.9 Immature Gran % (Auto) 0.2 Neut % (Auto) 53.7 Lymph % (Auto) 28.8 Stevens % (Auto) 12.3 H Eos % (Auto) 4.4 Baso % (Auto) 0.6 Lymph # (Auto) 1.38 Stevens # (Auto) 0.6 Eos # (Auto) 0.2 Baso # (Auto) 0.0 Abs Immat Gran (auto) 0.01 Absolute Neuts (auto) 2.6 Absolute Nucleated RBC 0.000 Nucleated RBC % 0.0 Sodium 139 Potassium 3.5 Chloride 104 Carbon Dioxide 29 Anion Gap 6 BUN 9 Creatinine 0.95 Estim Creat Clear Calc 60 Estimated GFR > 60 Glucose 102 POC Capillary Glucose 100 Calcium 9.2 Total Bilirubin AST ALT Alkaline Phosphatase Total Protein Albumin Lipase Urine Color Urine Appearance Urine pH Ur Specific [place] Urine Protein Urine Glucose (UA) Urine Ketones Ur Blood (Man) Urine Nitrate Urine Bilirubin Urine Urobilinogen Leukocyte Esterase Rfl Urine RBC Urine WBC Ur Squamous Epith Cells Urine Bacteria Urine Casts Influenza A (RT-PCR) Negative Influenza B (RT-PCR) Negative RSV (RT-PCR) Negative SARS-CoV-2 RNA (RT-PCR) Negative 01/31/25 07:42 WBC RBC Hgb Hct MCV MCH MCHC RDW Plt Count MPV Immature Gran % (Auto) Neut % (Auto) Lymph % (Auto) [place] % (Auto) Eos % (Auto) Baso % (Auto) Lymph # (Auto) [place] # (Auto) Eos # (Auto) Baso # (Auto) Abs Immat Gran (auto) Absolute Neuts (auto) Absolute Nucleated RBC Nucleated RBC % Sodium Potassium Chloride Carbon Dioxide Anion Gap BUN Creatinine Estim Creat Clear Calc Estimated GFR Glucose POC Capillary Glucose 102 Calcium Total Bilirubin AST ALT Alkaline Phosphatase Total Protein Albumin Lipase Urine Color Urine Appearance Urine pH Ur Specific [place] Urine Protein Urine Glucose (UA) Urine Ketones Ur Blood (Man) Urine Nitrate Urine Bilirubin Urine Urobilinogen Leukocyte Esterase Rfl Urine RBC Urine WBC Ur Squamous Epith Cells Urine Bacteria Urine Casts Influenza A (RT-PCR) Influenza B (RT-PCR) RSV (RT-PCR) SARS-CoV-2 RNA (RT-PCR) Quality VTE Prophylaxis VTE prophylaxis: mechanical ordered and pharmacologic ordered
[2025-01-31] MEDS: PREGABALIN (*CRX) 50 MG CAPSULE 100 MG PO (09:18)
[2025-01-31] MEDS: SENNA/DOCUSATE SODIUM TABLET 2 TAB PO ×2 (09:19→16:24)
[2025-01-31] MEDS: CLOPIDOGREL BISULFATE 75 MG TABLET PO (09:20)
[2025-01-31] MEDS: TAMSULOSIN HCL 0.4 MG CAPSULE PO ×2 (09:20→21:13)
[2025-01-31] MEDS: BETHANECHOL CHLORIDE 10 MG TABLET PO ×3 (09:20→16:24)
[2025-01-31] MEDS: FINASTERIDE 5 MG TABLET PO (09:20)
[2025-01-31 09:26] VITALS: PULSE 86
[2025-01-31] MEDS: PANTOPRAZOLE 40 MG TABLET PO (09:26)
[2025-01-31] MEDS: ENOXAPARIN 40 MG/0.4 ML SYRINGE SUB-Q (09:31)
[2025-01-31] MEDS: ASPIRIN 81 MG CHEWABLE TABLET PO (09:33)
[2025-01-31] MEDS: SODIUM CHLORIDE 0.9% IV 1,000 ML 100 ML IV CONT (09:36)
[2025-01-31] MEDS: LIPASE/AMYLASE/PROTEASE 12,000 UNITS CAP 3 CAP PO ×2 (12:05→16:25)
[2025-01-31 14:00] VITALS: BP 124/64; PULSE 66; RESP 18; TEMP 36.4; O2SAT 100
[2025-01-31 19:39] LABS: Toxigenic C. Diff NEGATIVE (NEGATIVE)
[2025-01-31 20:00] VITALS: PULSE 64; RESP 18; O2SAT 100
[2025-01-31 21:13] VITALS: PULSE 64
[2025-01-31] MEDS: PREGABALIN (*CRX) 50 MG CAPSULE 200 MG PO (21:13)
[2025-01-31] MEDS: ATORVASTATIN 40 MG TABLET 80 MG PO (21:14)
[2025-01-31 22:00] VITALS: BP 117/63; PULSE 64; RESP 18; TEMP 36.4; O2SAT 100
[2025-02-01 06:00] VITALS: BP 124/69; PULSE 52; RESP 14; TEMP 36.4; O2SAT 100
[2025-02-01] MEDS: LIPASE/AMYLASE/PROTEASE 12,000 UNITS CAP 3 CAP PO (08:49)
[2025-02-01] MEDS: BETHANECHOL CHLORIDE 10 MG TABLET PO (08:49)
[2025-02-01] MEDS: PANTOPRAZOLE 40 MG TABLET PO (08:49)
[2025-02-01] MEDS: FINASTERIDE 5 MG TABLET PO (08:49)
[2025-02-01] MEDS: CLOPIDOGREL BISULFATE 75 MG TABLET PO (08:49)
[2025-02-01] MEDS: SENNA/DOCUSATE SODIUM TABLET 2 TAB PO (08:49)
[2025-02-01] MEDS: TAMSULOSIN HCL 0.4 MG CAPSULE PO (08:49)
[2025-02-01] MEDS: PREGABALIN (*CRX) 50 MG CAPSULE 100 MG PO (08:49)
[2025-02-01 08:50] VITALS: PULSE 59
[2025-02-01] MEDS: ENOXAPARIN 40 MG/0.4 ML SYRINGE SUB-Q (08:50)
[2025-02-01 09:19] LABS: Hematocrit 36.4 % (42.0-52.0); Hemoglobin 11.7 g/dL (14.0-18.0); Immature Granulocyte Percent A 0.2 % (0-0.5); Lymphocytes Absolute Auto 1.40 K/mm3 (0.9-3.2); Mean Corpuscular HGB Conc 32.1 g/dl (32-36); Mean Corpuscular Hemoglobin 28.4 pg (26-34); Mean Corpuscular Volume 88.3 fl (80-100); Nucleated Red Blood Cells Absolute Auto 0.000 K/mm3 (0.0-0.012); Nucleated Red Blood Cells Perc 0.0 % (0.0-0.2); Platelet Count Result 212 k/mm3 (150-375); Red Blood Count 4.12 M/mm3 (4.6-6.20); White Blood Count 4.8 K/mm3 (4.5-10.0)
[2025-02-01 10:11] LABS: Alanine Aminotransferase 33 U/L (6-50); Albumin Level 3.4 g/dL (3.5-5.1); Alkaline Phosphatase 70 U/L (38-126); Anion Gap 4 mmol/L (4-12); Aspartate Amino Transferase 28 U/L (17-59); Bilirubin,Total 1.0 mg/dL (0.2-1.3); Blood Urea Nitrogen 10 mg/dL (9-20); Calcium 8.8 mg/dL (8.4-10.2); Carbon Dioxide 28 mmol/L (22-30); Chloride 105 mmol/L (98-107); Estimated CRCL calculation 61 ml/min; Estimated Glomerular Filt Rate > 60; Glucose 137 mg/dL (65-110); Potassium 3.6 mmol/L (3.4-5.0); Sodium 137 mmol/L (137-145); Total Protein 7.0 g/dL (6.3-8.2)
--- NOTE | 2025-02-01 10:30 | PM.DS ---
DS: Admitting Diagnosis Discharge Date 02/01/25 Admitting Diagnosis - diarrhea - abdominal pain DS: Discharge Diagnosis Discharge Diagnosis (1) Diarrhea: Code(s): R19.7 - Diarrhea, unspecified Status: Acute (2) Generalized weakness: Code(s): R53.1 - Weakness Status: Acute (3) Atrial fibrillation: Code(s): I48.91 - Unspecified atrial fibrillation Status: Chronic (4) Hyperlipidemia: Code(s): E78.5 - Hyperlipidemia, unspecified Status: Acute (5) BPH (benign prostatic hyperplasia): Code(s): N40.0 - Benign prostatic hyperplasia without lower urinary tract symptoms Status: Acute (6) Seizure disorder: Code(s): G40.909 - Epilepsy, unspecified, not intractable, without status epilepticus Status: Acute (7) CVA (cerebral vascular accident): Code(s): I63.9 - Cerebral infarction, unspecified Status: Chronic DS: Summary Hospital Course Reason for hospitalization: - diarrhea - abdominal pain Hospital Course: 74-year-old male history of hypertension, hyperlipidemia, diabetes, BPH, atrial fibrillation and Mares's palsy with right-sided facial droop presents the hospital with abdominal pain and diarrhea. Patient was recently discharged from [facility]. Patient's hemoglobin is 12.6, BMP is within normal limits, UA is negative for infection. Influenza A/B, RSV, COVID negative. CT abdomen shows no acute process. Patient admitted for dehydration and weakness. Upon admission, patient's diarrhea resolved. C diff testing was negative. Suspect diarrhea could have been from aggressive bowel regimen and that weakness was the result of dehydration. He received IV fluids with improvement in his weakness. PT/OT were consulted and recommended home with home care. Patient's vitals and electrolytes remained stable. Lower abdominal discomfort resolved. He was alert and oriented on day of discharge. Discharge plan was discussed with patient's . He will stop Miralax/senna and utilize Imodium as needed. He was instructed to maintain adequate hydration. Patient was discharged home with home health care in stable condition. Status at Discharge Functional status at discharge: uses cane/walker Overall status at discharge: patient is back to baseline Time Spent with Patient Time attestation: Total time spent providing and/or coordinating discharge services: Time spent: Greater than 30 minutes Exam Narrative: General: NAD Eyes: EOMI ENT: neck supple Cardiovascular: Regular rate and rhythm Respiratory: Clear to auscultation, respirations even and unlabored on RA Gastrointestinal: Soft, non tender Genitourinary: no suprapubic tenderness Musculoskeletal: No edema Skin: warm, dry Neuro: Alert. Psych: Mood appropriate DS: Data Data Completed and Pending Completed studies during hospitalization: ITS Impressions Abdomen/Pelvis CT 01/30/25 17:21 IMPRESSION: No acute intra-abdominal process. Labs on day of discharge: Labs from last 24 hours 02/01/25 02/01/25 01/31/25 09:14 07:46 20:29 WBC 4.8 RBC 4.12 L Hgb 11.7 L Hct 36.4 L MCV 88.3 MCH 28.4 MCHC 32.1 RDW 14.7 H Plt Count 212 MPV 8.8 Immature Gran % (Auto) 0.2 Neut % (Auto) 55.1 Lymph % (Auto) 29.1 Sharkey % (Auto) 9.4 H Eos % (Auto) 5.6 H Baso % (Auto) 0.6 Lymph # (Auto) 1.40 Sharkey # (Auto) 0.5 Eos # (Auto) 0.3 Baso # (Auto) 0.0 Abs Immat Gran (auto) 0.01 Absolute Neuts (auto) 2.7 Absolute Nucleated RBC 0.000 Nucleated RBC % 0.0 Sodium 137 Potassium 3.6 Chloride 105 Carbon Dioxide 28 Anion Gap 4 BUN 10 Creatinine 0.93 Estim Creat Clear Calc 61 Estimated GFR > 60 Glucose 137 H POC Capillary Glucose 122 H 154 H Calcium 8.8 Total Bilirubin 1.0 AST 28 ALT 33 Alkaline Phosphatase 70 Total Protein 7.0 Albumin 3.4 L C. difficile (PCR) 01/31/25 01/31/25 01/31/25 18:40 16:46 11:40 WBC RBC Hgb Hct MCV MCH MCHC RDW Plt Count MPV Immature Gran % (Auto) Neut % (Auto) Lymph % (Auto) Sharkey % (Auto) Eos % (Auto) Baso % (Auto) Lymph # (Auto) Sharkey # (Auto) Eos # (Auto) Baso # (Auto) Abs Immat Gran (auto) Absolute Neuts (auto) Absolute Nucleated RBC Nucleated RBC % Sodium Potassium Chloride Carbon Dioxide Anion Gap BUN Creatinine Estim Creat Clear Calc Estimated GFR Glucose POC Capillary Glucose 95 199 H Calcium Total Bilirubin AST ALT Alkaline Phosphatase Total Protein Albumin C. difficile (PCR) Negative Discharge Plan Discharge Attending physician on discharge: Mahamed Pond Consulting providers: Tanya Young Discharging Clinician: Tanya Young Anticipated Discharge Date/Time: 02/01/25 10:12 Patient Disposition: Home with Home Health Service Activity: as tolerated Diet: bland Discharge Instructions: Per Care Coordination Patient is current with [facility] for RN, PT, OT. Please resume services at discharge. [phone] Take all medications as prescribed. Stop all stool softeners and Miralax for now. Take Imodium as needed for diarrhea. Make sure you are drinking plenty of water and changing positions slowly. Follow-up with your primary care provider in one week. Return to the emergency department if you develop chest pain, shortness of breath, persistent fever >100.4, confusion, loss of consciousness. Patient Instructions: Antibiotic Form Patient Language: Cymraes Stand Alone Forms: General Discharge Information Follow-up/Referrals: Mahamed,Oksana Lakhani APRN [Primary Care Provider, Unknown] - Call for Appointment Referral Note: 1 week Discharge Medications: New loperamide [Imodium A-D] 2 mg capsule 2 mg PO Q6H PRN (Reason: loose stool) Qty: 20 0RF Continued atorvastatin 80 mg Tablet 80 mg PO HS Qty: 30 0RF bethanechol chloride 10 mg Tablet 10 mg PO TID Qty: 90 0RF sotalol 80 mg Tablet 40 mg PO BID 30 Days Qty: 60 0RF clopidogrel [Plavix] 75 mg Tablet 75 mg PO DAILY Qty: 30 0RF tamsulosin 0.4 mg Capsule 0.4 mg PO BID Qty: 60 0RF pantoprazole 40 mg Tablet,Delayed Release (Dr/Ec) 40 mg PO QAM Qty: 30 0RF lidocaine [DermacinRx Lidocan] 5 % adhesive patch,medicated 1 patch topical DAILY Qty: 30 0RF Rx Instructions: leave on most painful area for up to 12 hrs hydroxychloroquine 200 mg Tablet 200 mg PO BID Qty: 60 0RF finasteride 5 mg Tablet 5 mg PO DAILY Qty: 30 0RF levetiracetam 1,000 mg tablet 1,000 mg PO BID Qty: 60 0RF Pancreaze 10,500-35,500- 61,500 unit Capsule,Delayed Release(Dr/Ec) 3 cap PO TID Qty: 120 0RF Rx Instructions: administer with meals and/or snacks- to start on 01/02/2023 hydrocodone-acetaminophen 10-325 mg Tablet 1 tablet PO Q6H PRN (Reason: Pain (Scale Score 7-10)) Qty: 10 0RF pregabalin 100 mg Capsule 100 mg PO QAM Qty: 10 0RF pregabalin 100 mg Capsule 200 mg PO HS Qty: 20 0RF aspirin [Aspirin Childrens] 81 mg Tablet,Chewable 81 mg PO Q48H Discontinued sennosides-docusate sodium [Senokot-S] 8.6-50 mg Tablet 2 tab PO BID Qty: 0 0RF polyethylene glycol 3350 [Miralax] 17 gram Powder In Packet 17 g PO QAM Qty: 14 0RF Date of admission: 01/30/25 17:46 Primary Care Provider: Mahamed,Oksana Lakhani Admitting Provider: Selvin Vyas Attending physician on admission: Selvin Vyas Condition: Stable
== END 2025-02-01 12:30 | disposition home health service (06) ==
LOC: ANHED 15:26 → ANH3MEDSUR 18:59
PROVIDERS: Nurse Practitioner Gerontology; Physician Assistant; Admitting Provider Internal Medicine; Emergency Provider Emergency Medicine; Visit Provider Internal Medicine
DX: R19.7 Diarrhea, unspecified (principal); R53.1 Weakness; Z87.440 Personal history of urinary (tract) infections; G51.0 Bell's palsy; I10 Essential (primary) hypertension; E78.5 Hyperlipidemia, unspecified; E11.9 Type 2 diabetes mellitus without complications; I48.91 Unspecified atrial fibrillation; N40.0 Benign prostatic hyperplasia without lower urinary tract symptoms; Z79.02 Long term (current) use of antithrombotics/antiplatelets; G40.909 Epilepsy, unspecified, not intractable, without status epilepticus; Z86.73 Personal history of transient ischemic attack (TIA), and cerebral infarction without residual deficits; Z20.822 Contact with and (suspected) exposure to COVID-19
CPT/HCPCS: 36415; 74177; 80048; 80053; 81001; 82948; 83690; 85025; 87045; 87046; 87427; 87493; 87637; 96361; 96372; 97161; 97165; 99285; A9270; G0378; J1650; J7030; J7120; Q9967